=== PATIENT | female | born 1955 | race African-American/Black ===

== ENCOUNTER 2016-04-17 10:19 | Inpatient (IN) | payer MEDICARE, MEDICAID ==
[~2016-04-17] VITALS: Ht 165.1 cm; Wt 63.5 kg
[~2016-04-17 10:19] MED LIST: AMLODIPINE BESY10 MG ORAL; ATIVAN0.5 MG ORAL; BENADRYL25 MG ORAL; CALCIUM 600 +1 EAC6 PO; CARDURA1 MG ORAL; CATAPRES0.1 MG ORAL; COZAAR100 MG ORAL; DEXTROSE 50%-WA50 ML IV; DILAUDID1 MG/1 ML PO; DOCUSIL100 M1 ORAL; GUAIFENESIN-DM S5 ML PO; KEFLEX250 MG ORAL; LACTULOSE20 GM/301 ORAL; LISINOPRIL5 MG ORAL; LOMOTIL TABLET1 EAC1 PO; LOVENOX10 MG SUBQ; MAALOX ADVANCE770 ML PO; MELATONIN 3 MG1 EACH ORAL; NORCO 5-325 TA1 EACH ORAL; NOVOLOG100 UNIT/3 SUBQ; OMEPRAZOLE20 M2 ORAL; REGLAN5 MG ORAL; RENAGEL800 MG ORAL; ROCALTROL0.25 MCG PO; SENSIPAR90 MG PO; TYLENOL650 MG/20. ORAL; VITAMIN B-1100 MG ORAL
[2016-04-17] MEDS ORDERED: Morphine Sulfate 4mg/ml Inj IVP ONE (10:45)
[2016-04-17 11:31] LABS: BASOPHILS % (AUTO) 1.1 % (0.0-2.0); EOSINOPHILS % (AUTO) 3.6 % (0.0-3.0); LYMPHOCYTES % (AUTO) 18.6 % (20.0-45.0); MEAN CORPUSCULAR HEMOGLOBIN 30.4 PG (27.0-31.0); MEAN CORPUSCULAR HGB CONC 31.1 G/DL (32.0-36.0); MEAN CORPUSCULAR VOLUME 98 FL (80-99); MEAN PLATELET VOLUME 6.3 FL (6.5-10.1); MONOCYTES % (AUTO) 9.1 % (1.0-10.0); NEUTROPHILS % (AUTO) 67.5 % (45.0-75.0); PLATELET COUNT 252 K/UL (150-450); WHITE BLOOD COUNT 5.3 K/UL (4.8-10.8)
[2016-04-17 11:42] LABS: ALANINE AMINOTRANSFERASE 7 U/L (3-33); ALBUMIN/GLOBULIN RATIO 0.6 (1.0-2.7); ANION GAP 17 (5-15); ASPARTATE AMINO TRANSFERASE 22 U/L (5-40); CALCIUM 6.7 mg/dL (8.6-10.2); CARBON DIOXIDE 28 mEQ/L (20-30); CHLORIDE 91 mEQ/L (98-107); CREATININE 5.8 mg/dL (0.5-0.9); HEMOLYSIS 115; SODIUM 136 mEQ/L (135-145)
[2016-04-17 11:48] LABS: POTASSIUM 6.1 mEQ/L (3.4-4.9)
[2016-04-17] MEDS ORDERED: Calcium Gluconate 1gm/10ml vial IVP ONE ×2 (12:00→15:00)
[2016-04-17 12:01] LABS: TROPONIN I < 0.30 ng/mL (<=0.30)
[2016-04-17 12:09] LABS: CKMB < 1.5 ng/mL (< 3.8)
--- NOTE | 2016-04-17 12:28 | Diagnostic Imaging Report ---
Indications: Chest pain Technique: Portable AP chest Findings: Comparison: 09/20/2015 Cardiac silhouette remains enlarged. Pulmonary vascular redistribution, bilateral interstitial infiltrates have increased. Right pleural effusion has developed. Smaller left pleural effusion persists, unchanged. Newly new density left upper lobe. Linear densities compatible with subsegmental atelectasis versus scarring left mid to lower lung unchanged. Intravascular stent now present in the right paratracheal region. Previous PICC has been removed. Cervical fusion hardware again noted. IMPRESSION: Bilateral congestive changes, persistent versus recurrent and increased since previous exam Development of subsegmental atelectasis left upper lobe Stable subsegmental atelectasis versus scarring left lower lung Interval intravascular stent placement in region of right subclavian/brachiocephalic veins PICC removal
[2016-04-17 12:30] VITALS: BP 135/87
[2016-04-17 12:49] LABS: APPEARANCE,URINE CLEAR; KETONES,URINE NEGATIVE (NEGATIVE); LEUKOCYTE ESTERASE ,URINE 3+ (NEGATIVE); NITRITE,URINE NEGATIVE (NEGATIVE); PH,URINE 8 (4.5-8.0); PROTEIN,URINE 4+ (NEGATIVE); UROBILINOGEN,URINE NORMAL MG/DL (0.0-1.0)
[2016-04-17 13:15] LABS: BACTERIA,URINE FEW /HPF; SQUAMOUS EPITHELIAL CELL,UR FEW /LPF (NONE/OCC)
[2016-04-17 14:01] LABS: ALBUMIN/GLOBULIN RATIO 0.7 (1.0-2.7); CALCIUM 6.8 mg/dL (8.6-10.2); GLOMERULAR FILTRATION RATE 8.6 mL/min (>60); POTASSIUM 5.7 mEQ/L (3.4-4.9)
[2016-04-17 14:30] VITALS: BP 127/81
[2016-04-17] MEDS ORDERED: Zolpidem 5mg tab ORAL PRN (14:30)
[2016-04-17] MEDS ORDERED: Mylanta II UD 30ml ORAL PRN (14:30)
[2016-04-17] MEDS ORDERED: Miralax 17gm pkt ORAL PRN (14:30)
[2016-04-17] MEDS ORDERED: DuoNeb 0.5-3(2.5)mg/3ml neb HHN PRN (14:30)
--- NOTE | 2016-04-17 14:30 | Diagnostic Imaging Report ---
Indications: Abdominal pain and distention Technique: Continuous helical CT imaging of the abdomen and pelvis was performed with automatic exposure control following administration of oral and intravenous nonionic iodine contrast, on a Siemens sensation [address] scanner. Axial, coronal, and sagittal images were reconstructed at 5 mm slice thickness. CTDI volume(s): 13 mGy Total DLP: 670 mGy-cm Findings: Comparison: Abdominal ultrasound 09/22/2015 A large amount of ascites is present throughout the abdomen and pelvis, resulting in significant abdominal distention. No extraluminal gas or loculated fluid collections identified. Oral contrast has passed throughout the gastrointestinal tract throughout much of not all of the small bowel. Multiple loops of small bowel are dilated with air-fluid levels. Nondilated loops both proximal and distal to the dilated loops. A discrete point of transition cannot be identified. Mural thickening of one or more of nondilated/unopacified loops not excludable. Appendix not identified. Colon partially collapsed, partially gas and fecal filled, nondilated. Mural thickening of one or more segments not excludable. Rectum appears compressed by ascites. Mural thickening/pathology not excludable. Escobedo catheter in collapsed urinary bladder. Liver measures 20 cm in length, demonstrates subtle diffuse parenchymal heterogeneity, 12 mm enhancing nodule in its appropriate of what is likely segment IVb. Gallbladder wall thickened. Both kidneys are severely atrophic and contain multiple circumscribed low attenuation cortical foci. Scattered arterial mural calcifications without obvious flow-limiting stenosis or occlusion. Remainder visualized pelvic anatomy demonstrates no other obvious acute abnormality. Bilateral pleural effusions, right greater than left. Subsegmental parenchymal consolidation and volume loss in the adjacent portions of both lung bases. Heart enlarged. Pericardial effusion up to 15 mm diameter. Diffuse body wall edema. Diffuse skeletal sclerosis. L5-S1 disc space narrowing with marginal osteophyte formation. Impression: Marked ascites resulting in abdominal pelvic distention, etiology indeterminate Both dilated and nondilated small bowel, favor ileus over obstruction. Pathologic mural thickening of one or more small bowel loops not excludable. Collapsed colon and rectum. Pathologic mural thickening not excludable. Enlarged, heterogeneous liver compatible with chronic hepatocellular disease. 12 mm enhancing nodule described is nonspecific, may be benign or malignant Gallbladder wall thickening most likely secondary to presence of ascites. Cholecystitis not excludable Bilateral end-stage renal disease Escobedo catheter Diffuse body wall edema compatible with anasarca Pleural effusions, nonspecific, may be secondary to presence of ascites Pericardial effusion, nonspecific Anasarca Pulmonary bibasal subsegmental atelectasis Cardiomegaly Diffuse skeletal sclerosis may represent metastatic neoplasm or metabolic abnormality Degenerative spondylosis
[2016-04-17] MEDS ORDERED: CATAPRES0.1 MG ORAL (15:24)
[2016-04-17] MEDS ORDERED: TRAZODONE HCL100 MG ORAL (15:24)
[2016-04-17] MEDS ORDERED: TRAMADOL HCL50 MG ORAL (15:24)
[2016-04-17] MEDS ORDERED: ZOFRAN ODT4 MG ORAL (15:24)
[2016-04-17] MEDS ORDERED: ASPIRIN325 MG ORAL (15:24)
[2016-04-17] MEDS ORDERED: VITAMIN B-12500 MCG ORAL (15:26)
[2016-04-17] MEDS ORDERED: HYDRALAZINE HCL50 MG ORAL (15:26)
--- NOTE | 2016-04-17 16:09 | Emergency Room Report ---
History of Present Illness General Chief Complaint: Abdominal Pain Source: Patient, EMS Present Illness HPI 61-year-old female presents to ED complaining of abdominal pain x4 days. Patient resides in convalescent home. Patient states pain is sharp. 10 out of 10. Nonradiating. No aggravating or relieving factors. States her abdomen is distended. Denies nausea or vomiting. Denies chest pain or shortness of breath. Patient states he gets dialysis Sunday. Did not go to dialysis today because she was having pain. No other aggravating or relieving factors. Denies any other associated symptoms Allergies: Coded Allergies: No Known Allergies (Unverified , 09/20/15) Patient History Past Medical History: DM, HTN, AFib, GERD, dialysis Past Surgical History: none Pertinent Family History: none Social History: Denies: alcohol use, drug use, smoking Now: No Immunizations: UTD Reviewed Nursing Documentation: PMH: Agreed, PSxH: Agreed Nursing Documentation-PMH Past Medical History: No History, Except For Hx Cardiac Problems: Yes - afib Hx Hypertension: Yes Hx Diabetes: Yes Hx Cancer: No Hx Gastrointestinal Problems: Yes - GERD Hx Dialysis: Yes - MWF Hx Cerebrovascular Accident: No - Renal failure Review of Systems All Other Systems: negative except mentioned in HPI Physical Exam Vital Signs Date Time Temp Pulse Resp B/P Pulse Ox O2 Delivery O2 Flow Rate FiO2 04/17/16 10:09 104 18 131/85 98 Room Air Sp02 EP Interpretation: reviewed, normal General Appearance: no apparent distress, alert, GCS 15, non-toxic Head: normocephalic, atraumatic Eyes: bilateral eye PERRL, bilateral eye normal inspection ENT: hearing grossly normal, normal pharynx, no angioedema, normal voice Neck: full range of motion, supple/symm/no masses Respiratory: chest non-tender, lungs clear, normal breath sounds, speaking full sentences Cardiovascular #1: regular rate, rhythm, no edema Cardiovascular #2: 2+ carotid (R), 2+ carotid (L), 2+ radial (R), 2+ radial (L) , 2+ dorsalis pedis (R), 2+ dorsalis pedis (L) Gastrointestinal: normal bowel sounds, soft, no guarding, no rebound, distended , tenderness Rectal: deferred Genitourinary: normal inspection, no CVA tenderness Musculoskeletal: back normal, gait/station normal, normal range of motion, non- tender Neurologic: alert, oriented x3, responsive, motor strength/tone normal, sensory intact, speech normal Psychiatric: judgement/insight normal, memory normal, mood/affect normal, no suicidal/homicidal ideation Reflexes: 3+ bicep (R), 3+ bicep (L), 3+ tricep (R), 3+ tricep (L), 3+ knee (R) , 3+ knee (L) Skin: normal color, no rash, warm/dry, well hydrated Lymphatic: no adenopathy Medical Decision Making Diagnostic Impression: Primary Impression: Hyperkalemia Additional Impressions: ESRD (end stage renal disease) Ascites Qualified Codes: R18.8 - Other ascites ER Course Hospital Course 61-year-old female presents to ED with abdominal pain distention. 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 After initial history and physical I ordered labs, IV fluids, UA, pain medication and CT scan Labs - no leukocytosis, Hb/Hct stable. K 5.7. BUN/Cr elevated CT abdomen and pelvis -ascites, hepatomegaly. EKG - NSR, no acute ischemic changes given calcium/insulin/D50 Case discussed with Dr. Albright and he agreed to accept the patient to his service for further care and support I feel this is a highly complex case requiring extensive working including EKG/ Rhythm strip, Xray/CT/US, Blood/urine lab work, repeat exams while in ED, and administration of strong opiates/narcotics for pain control, admission to hospital or close patient follow up. Diagnosis - hyperkalemia, ESRD, ascites Patient admitted to [facility] in serious condition Labs Test 04/17/16 10:45 04/17/16 11:50 04/17/16 13:20 White Blood Count 5.3 K/UL (4.8-10.8) Red Blood Count 3.40 M/UL (4.20-5.40) Hemoglobin 10.4 G/DL (12.0-16.0) Hematocrit 33.3 % (37.0-47.0) Mean Corpuscular Volume 98 FL (80-99) Mean Corpuscular Hemoglobin 30.4 PG (27.0-31.0) Mean Corpuscular Hemoglobin Concent 31.1 G/DL (32.0-36.0) Red Cell Distribution Width 18.0 % (11.6-14.8) Platelet Count 252 K/UL (150-450) Mean Platelet Volume 6.3 FL (6.5-10.1) Neutrophils (%) (Auto) 67.5 % (45.0-75.0) Lymphocytes (%) (Auto) 18.6 % (20.0-45.0) Monocytes (%) (Auto) 9.1 % (1.0-10.0) Eosinophils (%) (Auto) 3.6 % (0.0-3.0) Basophils (%) (Auto) 1.1 % (0.0-2.0) Sodium Level 136 mEQ/L (135-145) 135 mEQ/L (135-145) Potassium Level 6.1 mEQ/L (3.4-4.9) 5.7 mEQ/L (3.4-4.9) Chloride Level 91 mEQ/L (98-107) 90 mEQ/L (98-107) Carbon Dioxide Level 28 mEQ/L (20-30) 28 mEQ/L (20-30) Anion Gap 17 (5-15) 17 (5-15) Blood Urea Nitrogen 32 mg/dL (7-23) 33 mg/dL (7-23) Creatinine 5.8 mg/dL (0.5-0.9) 6.0 mg/dL (0.5-0.9) Estimat Glomerular Filtration Rate 9.0 mL/min (>60) 8.6 mL/min (>60) Glucose Level 59 mg/dL (74-106) 61 mg/dL (74-106) Lactic Acid Level 0.70 mmol/L (0.66-2.22) Calcium Level 6.7 mg/dL (8.6-10.2) 6.8 mg/dL (8.6-10.2) Total Bilirubin 0.4 mg/dL (0.0-1.2) 0.4 mg/dL (0.0-1.2) Aspartate Amino Transf (AST/SGOT) 22 U/L (5-40) 15 U/L (5-40) Alanine Aminotransferase (ALT/SGPT) 7 U/L (3-33) 6 U/L (3-33) Alkaline Phosphatase 123 U/L (35-104) 123 U/L (35-104) Total Creatine Kinase 45 U/L (26-140) Creatine Kinase MB < 1.5 ng/mL (< 3.8) Creatine Kinase MB Relative Index Troponin I < 0.30 ng/mL (<=0.30) Total Protein 8.0 g/dL (6.6-8.7) 8.0 g/dL (6.6-8.7) Albumin 3.2 g/dL (3.5-5.2) 3.3 g/dL (3.5-5.2) Globulin 4.8 g/dL 4.7 g/dL Albumin/Globulin Ratio 0.6 (1.0-2.7) 0.7 (1.0-2.7) Urine Color Yellow Urine Appearance Clear Urine pH 8 (4.5-8.0) Urine Specific Horton 1.005 (1.005-1.035) Urine Protein 4+ (NEGATIVE) Urine Glucose (UA) Negative (NEGATIVE) Urine Ketones Negative (NEGATIVE) Urine Occult Blood 3+ (NEGATIVE) Urine Nitrite Negative (NEGATIVE) Urine Bilirubin Negative (NEGATIVE) Urine Urobilinogen Normal MG/DL (0.0-1.0) Urine Leukocyte Esterase 3+ (NEGATIVE) Urine RBC 5-10 /HPF (0 - 2) Urine WBC 5-10 /HPF (0 - 2) Urine Squamous Epithelial Cells Few /LPF (NONE/OCC) Urine Bacteria Few /HPF (NONE) EKG Diagnostic Results Rate: normal Rhythm: NSR ST Segments: no acute changes ASA given to the pt in ED: No Rhythm Strip Diag. Results EP Interpretation: yes Rhythm: NSR, no PVC's, no ectopy Chest X-Ray Diagnostic Results EP Interpretation: No Findings: no pneumothorax, no acute cardiopulmonary disease, other - L atelectasis/effusion Number of Views: 1 CT/MRI/US Diagnostic Results CT/MRI/US Diagnostic Results : Imaging Test Ordered: CT A/P Impression ascites, hepatomegaly. no bowel obstruction. Last Vital Signs Date Time Temp Pulse Resp B/P Pulse Ox O2 Delivery O2 Flow Rate FiO2 04/17/16 15:29 103 18 127/81 95 Room Air Status: improved Disposition: ADMITTED INPATIENT Condition: Serious Referrals: LANE CARNEY MD (PCP) LICHA GARCIA M.D. Apr 17, 2016 16:09
[2016-04-17 16:13] VITALS: BP 148/94
--- NOTE | 2016-04-17 16:28 | Consultation ---
Consult Note Consult Note asked to eval for dialysis management Chief Complaint: Abdominal Pain 61-year-old female presents to ED complaining of abdominal pain x4 days. Patient resides in convalescent home. Patient states pain is sharp. 10 out of 10. Nonradiating. No aggravating or relieving factors. States her abdomen is distended. Denies nausea or vomiting. Denies chest pain or shortness of breath. Patient states he gets dialysis Sunday. Did not go to dialysis today because she was having pain. No other aggravating or relieving factors. Denies any other associated symptoms Past Medical History: DM, HTN, AFib, GERD, dialysis Past Medical History: No History, Except For Hx Cardiac Problems: Yes - afib Hx Hypertension: Yes Hx Diabetes: Yes Hx Gastrointestinal Problems: Yes - GERD Hx Dialysis: Yes - MWF Hx Cerebrovascular Accident: No - Renal failure patient interviewed and examined- comfortable fistula righ arm Ascitis Decrease BS bases Assessment/Plan ESRD- HyperKalemia Ascitis- DM HTN At Fib Plan: [facility]- HD SUSAN Per consultants PEPE MONTERROSO Apr 17, 2016 16:28
[2016-04-17] MEDS ORDERED: Sodium Polystyrene Sulfonate 15gm Powder ORAL ONE (16:30)
[2016-04-17] MEDS: NovoLOG Insulin Flexpen SUBQ SCH ×2 (16:30→21:00)
--- NOTE | 2016-04-17 16:37 | GI Initial Consult Note ---
History of Present Illness General Date patient seen: Apr 17, 2016 Time patient seen: 16:28 Reason for Hospitalization: Abdominal Pain Referring physician: ROSS HODGES Reason for Consultation: ANEMIA Present Illness HPI 61-year-old female presents to ED complaining of abdominal pain x4 days. Patient resides in convalescent home. Patient states pain is sharp. 10 out of 10. Nonradiating. No aggravating or relieving factors. States her abdomen is distended. Denies nausea or vomiting. Denies chest pain or shortness of breath. Patient states he gets dialysis Sunday. Did not go to dialysis today because she was having pain. No other aggravating or relieving factors. Denies any other associated symptoms GI CONSULT: HPI as noted above. Pt seen on floor awake, A&Ox4 NAD c/o of abdominal distention and pain, tender to touch all quad. GI consulted for anemia and evaluation of cirrhosis. Pt is a chronic ETOH user approximately 1pint weekly 5+ years and tobacco user. She stated she has quit both for approximately 3 months now. Pt is unable to recall her last colonoscopy, but states it was unremarkable. She presents today with anemia, elevated alkaline phosphatase, hypoalbuminemia and ascites and possible ileus on CT, see full report below. Procedure: CT Abdomen Pelvis w/Contrast Indications: Abdominal pain and distention Impression: Marked ascites resulting in abdominal pelvic distention, etiology indeterminate Both dilated and nondilated small bowel, favor ileus over obstruction. Pathologic mural thickening of one or more small bowel loops not excludable. Collapsed colon and rectum. Pathologic mural thickening not excludable. Enlarged,heterogeneous liver compatible with chronic hepatocellular disease. 12 mm enhancing nodule described is nonspecific, may be benign or malignant Gallbladder wall thickening most likely secondary to presence of ascites. Cholecystitis not excludable Bilateral end-stage renal disease Escobedo catheter Diffuse body wall edema compatible with anasarca Pleural effusions, nonspecific, may be secondary to presence of ascites Pericardial effusion, nonspecific Anasarca Pulmonary bibasal subsegmental atelectasis Cardiomegaly Diffuse skeletal sclerosis may represent metastatic neoplasm or metabolic abnormality Degenerative spondylosis Home Meds Reported Medications Hydralazine Hcl* (HYDRALAZINE HCL*) 50 Mg Tablet, 50 MG ORAL EVERY 8 HOURS, TAB 04/17/16 Cyanocobalamin (Vitamin B-12)* (VITAMIN B-12*) 500 Mcg Tablet, 1000 MCG ORAL DAILY, #30 TAB 0 Refills 04/17/16 Clonidine Hcl* (CATAPRES*) 0.1 Mg Tablet, 0.1 MG ORAL EVERY 6 HOURS, TAB 04/17/16 Tramadol Hcl* (ULTRAM*) 50 Mg Tablet, 50 MG ORAL Q6H Y for For Pain, #30 TAB 0 Refills 04/17/16 Trazodone Hcl* (DESYREL*) 100 Mg Tablet, 100 MG ORAL BEDTIME, TAB 04/17/16 Ondansetron Odt* (ZOFRAN ODT*) 4 Mg Tab.rapdis, 4 MG ORAL Q6H Y for Nausea & Vomiting, #30 TAB 04/17/16 Aspirin* (ASPIRIN*) 325 Mg Tablet, 325 MG ORAL DAILY, TAB 04/17/16 Thiamine Hcl* (VITAMIN B-1*) 100 Mg Tablet, 100 MG ORAL DAILY, #30 TAB 0 Refills 09/20/15 Cinacalcet Hcl (SENSIPAR) 90 Mg Tablet, 90 MG PO DAILY, TAB 09/20/15 Calcitriol (ROCALTROL) 0.25 Mcg Capsule, 0.25 MCG PO DAILY, CAP 09/20/15 Calcitriol (ROCALTROL) 0.25 Mcg Capsule, 0.25 MCG PO, CAP 09/20/15 Sevelamer Hcl (RENAGEL) 800 Mg Tablet, 800 MG ORAL THREE TIMES A DAY, #90 TAB 0 Refills 09/20/15 Metoclopramide Hcl* (REGLAN*) 5 Mg Tablet, 5 MG ORAL EVERY 6 HOURS, TAB 09/20/15 Omeprazole (OMEPRAZOLE) 20 Mg Capsule.dr, 20 MG ORAL DAILY, CAP 09/20/15 Insulin Aspart* (NOVOLOG*) 100 Unit/1 Ml Insuln.pen, 0 SUBQ, #1 EA 0 Refills 09/20/15 Mag Hydrox/Al Hydrox/Simeth (Maalox Advanced Suspension) 355 Ml Oral.susp, 30 ML PO EVERY 12 HOURS, ML 09/20/15 Melatonin (MELATONIN 3 MG TABLET) 1 Each Tablet, 1 TAB ORAL BEDTIME Y for Insomnia, TAB 09/20/15 Enoxaparin* (LOVENOX*) 30 Mg/0.3 Ml Inj, 30 MG SUBQ DAILY, #30 EA 0 Refills 09/20/15 Diphenoxylate HCl/Atropine (Lomotil Tablet) 1 Each Tablet, 1 EACH PO Q4HR, TAB 09/20/15 Lisinopril (LISINOPRIL*) 5 Mg Tablet, 5 MG ORAL DAILY, TAB 09/20/15 Lactulose (LACTULOSE*) 20 Gm/30 Ml Solution, 30 ML ORAL Q8HR, ML 0 Refills 09/20/15 Cephalexin* (KEFLEX*) 250 Mg Capsule, 250 MG ORAL BID, #28 CAP 0 Refills 09/20/15 Hydrocodone Bit/Acetaminophen 5-325* (NORCO 5-325*) 1 Each Tablet, 1 TAB ORAL Q4H Y for For Pain, TAB 0 Refills 09/20/15 Guaifenesin/Dextromethorphan (GUAIFENESIN-DM SOLUTION) 5 Ml Liquid, 10 ML PO Q4HR, ML 09/20/15 Docusate Sodium* (DOCUSIL*) 100 Mg Capsule, 100 MG ORAL Q12HR, CAP 09/20/15 Hydromorphone Hcl (DILAUDID) 1 Mg/1 Ml Liquid, 1 MG PO NEEDED, ML 09/20/15 Dextrose 50 % in Water (Dextrose 50%-Water Syringe) 50 Ml Syringe, 50 ML IV Y for Hypoglycemia, EA 09/20/15 Losartan Potassium (COZAAR) 100 Mg Tablet, 100 MG ORAL DAILY, TAB 09/20/15 Clonidine Hcl* (CATAPRES*) 0.1 Mg Tablet, 0.1 MG ORAL EVERY 6 HOURS Y for AD, TAB 09/20/15 Doxazosin Mesylate* (CARDURA*) 1 Mg Tablet, 2 MG ORAL DAILY, TAB 09/20/15 Calcium Carbonate/Vitamin D3 (CALCIUM 600 + VIT D 400 TABLET) 1 Each Tablet, 1 EACH PO, TAB 09/20/15 Diphenhydramine Hcl* (BENADRYL*) 25 Mg Capsule, 25 MG ORAL Q6H Y for Itching, CAP 09/20/15 Lorazepam* (ATIVAN*) 0.5 Mg Tablet, 0.5 MG ORAL Q4HR Y for AD, TAB 09/20/15 Amlodipine Besylate* (AMLODIPINE BESYLATE*) 10 Mg Tablet, 10 MG ORAL DAILY, TAB 09/20/15 Acetaminophen (Acetaminophen) 650 Mg/20.3 Ml Solution, 650 MG ORAL Q6H Y for Prn Headache/Temp > 101, ML 0 Refills 09/20/15 Med list reviewed/reconciled: Yes Allergies: Coded Allergies: No Known Allergies (Unverified , 09/20/15) Patient History PMH Narrative Allergies: Coded Allergies: No Known Allergies (Unverified , 09/20/15) Patient History Past Medical History: DM, HTN, AFib, GERD, dialysis Past Surgical History: none Pertinent Family History: none Social History: Denies: alcohol use, drug use, smoking Now: No Immunizations: UTD Reviewed Nursing Documentation: PMH: Agreed, PSxH: Agreed Nursing Documentation-PMH Past Medical History: No History, Except For Hx Cardiac Problems: Yes - afib Hx Hypertension: Yes Hx Diabetes: Yes Hx Cancer: No Hx Gastrointestinal Problems: Yes - GERD Hx Dialysis: Yes - MWF Hx Cerebrovascular Accident: No - Renal failure Social History: Reports: alcohol use, smoking Review of Systems All Other Systems: negative except mentioned in HPI Physical Exam Vital Signs Date Time Temp Pulse Resp B/P Pulse Ox O2 Delivery O2 Flow Rate FiO2 04/17/16 10:09 104 18 131/85 98 Room Air 04/17/16 16:13 97.7 Sp02 EP Interpretation: reviewed Labs Laboratory Tests Test 04/17/16 10:45 04/17/16 11:50 04/17/16 13:20 White Blood Count 5.3 K/UL (4.8-10.8) Red Blood Count 3.40 M/UL (4.20-5.40) L Hemoglobin 10.4 G/DL (12.0-16.0) L Hematocrit 33.3 % (37.0-47.0) L Mean Corpuscular Volume 98 FL (80-99) Mean Corpuscular Hemoglobin 30.4 PG (27.0-31.0) Mean Corpuscular Hemoglobin Concent 31.1 G/DL (32.0-36.0) L Red Cell Distribution Width 18.0 % (11.6-14.8) H Platelet Count 252 K/UL (150-450) Mean Platelet Volume 6.3 FL (6.5-10.1) L Neutrophils (%) (Auto) 67.5 % (45.0-75.0) Lymphocytes (%) (Auto) 18.6 % (20.0-45.0) L Monocytes (%) (Auto) 9.1 % (1.0-10.0) Eosinophils (%) (Auto) 3.6 % (0.0-3.0) H Basophils (%) (Auto) 1.1 % (0.0-2.0) Sodium Level 136 mEQ/L (135-145) 135 mEQ/L (135-145) Potassium Level 6.1 mEQ/L (3.4-4.9) *H 5.7 mEQ/L (3.4-4.9) H Chloride Level 91 mEQ/L (98-107) L 90 mEQ/L (98-107) L Carbon Dioxide Level 28 mEQ/L (20-30) 28 mEQ/L (20-30) Anion Gap 17 (5-15) H 17 (5-15) H Blood Urea Nitrogen 32 mg/dL (7-23) H 33 mg/dL (7-23) H Creatinine 5.8 mg/dL (0.5-0.9) H 6.0 mg/dL (0.5-0.9) H Estimat Glomerular Filtration Rate 9.0 mL/min (>60) 8.6 mL/min (>60) Glucose Level 59 mg/dL (74-106) L 61 mg/dL (74-106) L Lactic Acid Level 0.70 mmol/L (0.66-2.22) Calcium Level 6.7 mg/dL (8.6-10.2) L 6.8 mg/dL (8.6-10.2) L Total Bilirubin 0.4 mg/dL (0.0-1.2) 0.4 mg/dL (0.0-1.2) Aspartate Amino Transf (AST/SGOT) 22 U/L (5-40) 15 U/L (5-40) Alanine Aminotransferase (ALT/SGPT) 7 U/L (3-33) 6 U/L (3-33) Alkaline Phosphatase 123 U/L (35-104) H 123 U/L (35-104) H Total Creatine Kinase 45 U/L (26-140) Creatine Kinase MB < 1.5 ng/mL (< 3.8) Creatine Kinase MB Relative Index Troponin I < 0.30 ng/mL (<=0.30) Total Protein 8.0 g/dL (6.6-8.7) 8.0 g/dL (6.6-8.7) Albumin 3.2 g/dL (3.5-5.2) L 3.3 g/dL (3.5-5.2) L Globulin 4.8 g/dL 4.7 g/dL Albumin/Globulin Ratio 0.6 (1.0-2.7) L 0.7 (1.0-2.7) L Urine Color Yellow Urine Appearance Clear Urine pH 8 (4.5-8.0) Urine Specific [place] 1.005 (1.005-1.035) Urine Protein 4+ (NEGATIVE) H Urine Glucose (UA) Negative (NEGATIVE) Urine Ketones Negative (NEGATIVE) Urine Occult Blood 3+ (NEGATIVE) H Urine Nitrite Negative (NEGATIVE) Urine Bilirubin Negative (NEGATIVE) Urine Urobilinogen Normal MG/DL (0.0-1.0) Urine Leukocyte Esterase 3+ (NEGATIVE) H Urine RBC 5-10 /HPF (0 - 2) H Urine WBC 5-10 /HPF (0 - 2) H Urine Squamous Epithelial Cells Few /LPF (NONE/OCC) Urine Bacteria Few /HPF (NONE) General Appearance: well appearing, no apparent distress, alert Head: normocephalic EENT: normal ENT inspection Neck: supple Respiratory: normal breath sounds, no respiratory distress Cardiovascular: normal rate Gastrointestinal: distended, tenderness, ascites Rectal: deferred Neurologic: normal inspection, alert, oriented x3, responsive Psychiatric: normal inspection, judgement/insight normal, memory normal Skin: normal inspection, normal color, no rash Lymphatic: normal inspection, no adenopathy Current Medications Current Medications Medications (Trade) Dose Ordered Sig/Ranjan Route PRN Reason Start Time Stop Time Status Last Admin Dose Admin Acetaminophen (Tylenol) 650 mg Q4H PRN ORAL fever 04/17/16 14:30 05/17/16 14:29 Acetaminophen (Tylenol) 650 mg Q6H PRN ORAL Prn Headache/Temp > 101 04/17/16 16:15 05/17/16 16:14 UNV Albuterol/ Ipratropium 3 ml 3 ml Q6H PRN HHN dyspnea 04/17/16 14:30 04/22/16 14:29 Amlodipine Besylate (Norvasc) 10 mg DAILY ORAL 04/18/16 09:00 05/18/16 08:59 UNV Aspirin (ASA) 325 mg DAILY ORAL 04/18/16 09:00 05/18/16 08:59 UNV Cinacalcet (Sensipar) 60 mg QHS ORAL 04/17/16 21:00 05/17/16 20:59 UNV Clonidine HCl (Catapres) 0.1 mg Q4H PRN ORAL For High Blood Pressure 04/17/16 14:30 05/17/16 14:29 Dextrose (Dextrose 50%) STAT PRN IV Hypoglycemia 04/17/16 14:30 05/17/16 14:29 Docusate Sodium (Colace) 100 mg TID ORAL 04/17/16 21:00 05/17/16 20:59 UNV Furosemide (Lasix) 100 mg Q8H PRN IV dyspnea 04/17/16 14:30 05/17/16 14:29 Heparin Sodium (Porcine) (Heparin 5000 units/ml) 5,000 units EVERY 12 HOURS SUBQ 04/17/16 21:00 05/17/16 20:59 Hydralazine HCl (Apresoline) 50 mg EVERY 8 HOURS ORAL 04/17/16 22:00 05/17/16 21:59 UNV Insulin Aspart (NovoLOG) BEFORE MEALS AND HS SUBQ 04/17/16 16:30 05/17/16 16:29 Lactulose (Cephulac) 20 gm Q8HR ORAL 04/17/16 22:00 05/17/16 21:59 UNV Levofloxacin (Levaquin 750mg/ D5W) 150 ml @ 100 mls/hr NOW ONCE IVPB 04/17/16 15:00 04/17/16 16:29 04/17/16 15:15 Metoclopramide HCl (Reglan) 5 mg TIAC ORAL 04/17/16 18:00 05/17/16 17:59 UNV Morphine Sulfate (Morphine Sulfate) 1 mg Q4H PRN IVP For Pain 04/17/16 14:30 04/24/16 14:29 Ondansetron HCl (Zofran) 4 mg Q6H PRN IVP Nausea & Vomiting 04/17/16 14:30 05/17/16 14:29 Pantoprazole (Protonix) 40 mg DAILY ORAL 04/18/16 09:00 05/18/16 08:59 UNV Polyethylene Glycol (Miralax) 17 gm HSPRN PRN ORAL Constipation 04/17/16 14:30 05/17/16 14:29 Sevelamer Carbonate (Renvela) 1,600 mg THREE TIMES A DAY ORAL 04/17/16 18:00 05/17/16 17:59 UNV Sodium Polystyrene Sulfonate (Kayexalate) 45 gm ONCE ONCE ORAL 04/17/16 16:30 04/17/16 16:31 Thiamine HCl (Vitamin B1) 100 mg DAILY ORAL 04/18/16 09:00 05/18/16 08:59 UNV Trazodone HCl (Desyrel) 100 mg BEDTIME ORAL 04/17/16 21:00 05/17/16 20:59 UNV Zolpidem Tartrate (Ambien) 5 mg HSPRN PRN ORAL Insomnia 04/17/16 14:30 05/17/16 14:29 GI: Plan Problems: (1) Ileus (2) Ascites (3) GERD (gastroesophageal reflux disease) (4) H/O ETOH abuse (5) Abnormal LFTs (6) Anemia (7) Hepatomegaly Plan anemia work up ordered paracentesis + r/o SBP ordered Hep panel ordered tumor markers; AFP, CEA, CA19-9, CA 125-5 cont lactulose renal diet bowel regime ppi fu labs Discussed with Dr. Reyes. Thank you for referring this patient, we will follow. Autumn Lutz N.P. Apr 17, 2016 16:37
--- NOTE | 2016-04-17 16:55 | Cardiology Progress Note ---
Assessment/Plan Assessment/Plan ascites esrd on hemodialysis ? uti diastlich dysfucntion TR / AR esrd on hemodialysis anemia liver disease consider paracentesis dialysis echo urien c/s myeloma ortiz ?? [id number] Objective Last 24 Hour Vital Signs Date Time Temp Pulse Resp B/P Pulse Ox O2 Delivery O2 Flow Rate FiO2 04/17/16 16:13 97.7 111 19 148/94 94 Room Air 04/17/16 15:29 103 18 127/81 95 Room Air 04/17/16 14:30 103 18 127/81 95 Room Air 04/17/16 12:30 106 20 135/87 98 Room Air 04/17/16 10:09 104 18 131/85 98 Room Air Laboratory Tests Test 04/17/16 10:45 04/17/16 11:50 04/17/16 13:20 White Blood Count 5.3 K/UL (4.8-10.8) Red Blood Count 3.40 M/UL (4.20-5.40) L Hemoglobin 10.4 G/DL (12.0-16.0) L Hematocrit 33.3 % (37.0-47.0) L Mean Corpuscular Volume 98 FL (80-99) Mean Corpuscular Hemoglobin 30.4 PG (27.0-31.0) Mean Corpuscular Hemoglobin Concent 31.1 G/DL (32.0-36.0) L Red Cell Distribution Width 18.0 % (11.6-14.8) H Platelet Count 252 K/UL (150-450) Mean Platelet Volume 6.3 FL (6.5-10.1) L Neutrophils (%) (Auto) 67.5 % (45.0-75.0) Lymphocytes (%) (Auto) 18.6 % (20.0-45.0) L Monocytes (%) (Auto) 9.1 % (1.0-10.0) Eosinophils (%) (Auto) 3.6 % (0.0-3.0) H Basophils (%) (Auto) 1.1 % (0.0-2.0) Sodium Level 136 mEQ/L (135-145) 135 mEQ/L (135-145) Potassium Level 6.1 mEQ/L (3.4-4.9) *H 5.7 mEQ/L (3.4-4.9) H Chloride Level 91 mEQ/L (98-107) L 90 mEQ/L (98-107) L Carbon Dioxide Level 28 mEQ/L (20-30) 28 mEQ/L (20-30) Anion Gap 17 (5-15) H 17 (5-15) H Blood Urea Nitrogen 32 mg/dL (7-23) H 33 mg/dL (7-23) H Creatinine 5.8 mg/dL (0.5-0.9) H 6.0 mg/dL (0.5-0.9) H Estimat Glomerular Filtration Rate 9.0 mL/min (>60) 8.6 mL/min (>60) Glucose Level 59 mg/dL (74-106) L 61 mg/dL (74-106) L Lactic Acid Level 0.70 mmol/L (0.66-2.22) Calcium Level 6.7 mg/dL (8.6-10.2) L 6.8 mg/dL (8.6-10.2) L Total Bilirubin 0.4 mg/dL (0.0-1.2) 0.4 mg/dL (0.0-1.2) Aspartate Amino Transf (AST/SGOT) 22 U/L (5-40) 15 U/L (5-40) Alanine Aminotransferase (ALT/SGPT) 7 U/L (3-33) 6 U/L (3-33) Alkaline Phosphatase 123 U/L (35-104) H 123 U/L (35-104) H Total Creatine Kinase 45 U/L (26-140) Creatine Kinase MB < 1.5 ng/mL (< 3.8) Creatine Kinase MB Relative Index Troponin I < 0.30 ng/mL (<=0.30) Total Protein 8.0 g/dL (6.6-8.7) 8.0 g/dL (6.6-8.7) Albumin 3.2 g/dL (3.5-5.2) L 3.3 g/dL (3.5-5.2) L Globulin 4.8 g/dL 4.7 g/dL Albumin/Globulin Ratio 0.6 (1.0-2.7) L 0.7 (1.0-2.7) L Urine Color Yellow Urine Appearance Clear Urine pH 8 (4.5-8.0) Urine Specific [place] 1.005 (1.005-1.035) Urine Protein 4+ (NEGATIVE) H Urine Glucose (UA) Negative (NEGATIVE) Urine Ketones Negative (NEGATIVE) Urine Occult Blood 3+ (NEGATIVE) H Urine Nitrite Negative (NEGATIVE) Urine Bilirubin Negative (NEGATIVE) Urine Urobilinogen Normal MG/DL (0.0-1.0) Urine Leukocyte Esterase 3+ (NEGATIVE) H Urine RBC 5-10 /HPF (0 - 2) H Urine WBC 5-10 /HPF (0 - 2) H Urine Squamous Epithelial Cells Few /LPF (NONE/OCC) Urine Bacteria Few /HPF (NONE) Microbiology Date/Time Source Procedure Growth Status 04/17/16 11:50 Stool Received BETTIE URBANO Apr 17, 2016 16:54
[2016-04-17] MEDS: Lactulose 20gm/30ml UDC ORAL SCH ×2 (17:20→21:30)
[2016-04-17] MEDS: Morphine Sulfate 2mg/ml Inj IVP PRN (19:19)
[2016-04-17 20:26] VITALS: BP 143/84
--- NOTE | 2016-04-17 20:58 | Consultation ---
DATE OF CONSULTATION: 04/17/2016 CARDIOLOGY CONSULTATION REFERRING PHYSICIAN: Bailee Shaw M.D. REASON FOR REFERRAL: Shortness of breath. HISTORY OF PRESENT ILLNESS: This is a 61-year-old female, who has multiple medical problems as listed below. The patient admitted to the hospital for transfer from the [facility] because of shortness of breath. She has shortness of breath with walking long distances she states. She is able to walk around from the facility from bed to bathroom, but does not get short of breath. She does not have really any PND, but uses two pillows as she is provided with those. She never had a sleep in a sitting position. There is no palpitations. She occasional has some dizziness or lightheadedness. PAST MEDICAL HISTORY: Her past medical history is extensive. She has recently been hospitalized at [facility] for history of CHF with diastolic failure, diabetes mellitus, polysubstance abuse, and end-stage renal disease, on hemodialysis, abdominal pain, hyperkalemia, severe deconditioning, systemic hypertension, malnutrition and anemia of chronic disease. She has had evaluations here previously as well. She has had a history of AV fistula in her arm during the last hospitalization that I have seen her here back in September 2015. She was noted to have abnormal liver function test and thrombocytopenia. She was noted to have pancreatitis, abnormal function with thrombocytopenia, significant tricuspid or aortic regurgitation, pulmonary hypertension, hypothyroidism and ischemic evaluation did not show any reversible defects. MEDICATIONS: The patient's medications from a convalescent facility includes amlodipine 10 mg, Tylenol, aspirin 325 mg, Benadryl, clonidine 0.1 mg q.6 hours p.r.n., Colace, vitamin B12 5000, Duo-Neb, Lovenox 30 mg daily, hydralazine 50 mg every eight hours, Nephro-Vahid 0.8 mg, she takes nitroglycerin on an p.r.n. basis, Protonix 40 mg, Renvela 4000 mg by mouth after meals, Sensipar, Seroquel 100 mg, tramadol, trazodone 100 mg at bedtime and Zofran as well. ALLERGIES: She is not allergic to any medication. SOCIAL HISTORY: She used to smoke and drink until a few months ago. Denies any excessive smoking or drinking. She has had no drug use previously. REVIEW OF SYSTEMS: Gastrointestinal: She has had significant amount of constipation, when she has have a bowel movement, she is in tears. Genitourinary: She states when she has to urinate, she is in tears as well. No blood in the urine. She did have some bloody stools that she says she got evaluated for a few days ago. Pulmonary: No significant coughing or wheezing. Constitutional: Negative except for the fact that she has had significant amount of weight loss. Neurological: She has had numbness and tingling sensation in her arms and legs. PHYSICAL EXAMINATION: GENERAL: The patient to be in an elderly female, in no apparent respiratory distress. NECK: Supple. No jugular venous distention. No bruits are noted. LUNGS: Decreased breath sounds noted in the bases. CARDIAC: Regular rate and rhythm. Diastolic murmur, holosystolic visual murmur noted. No RV lift, heaves or thrills noted. ABDOMEN: Soft, protuberant and distended fluid wave is noted. EXTREMITIES: There is no significant clubbing, cyanosis nor is there any edema. NEUROLOGICAL: She is awake, alert, and responsive, and in no apparent respiratory distress. LABORATORY AND DIAGNOSTIC DATA: She has had x-ray of her chest that showed bilateral congestive changes persistent versus recurrent and increased since prior evaluation stable submental atelectasis versus left lower lung and intravascular stent placed in the region of the right subclavian brachiocephalic vein and the PICC line, apparently that she had before it has been removed. She has had a CT scan that was performed here that shows marked ascites resulted in abdominal pelvic distention, both dilated and not dilated small bowels favor ileus or obstruction, collapsed the colon and rectum, bilateral end-stage renal disease, Escobedo catheter, diffuse body wall edema compatible with anasarca, pleural effusions nonspecific maybe secondary to presence of ascites and pleural effusion. White count of 5.3, hemoglobin 10.4, and a platelet count of 252,000. Sodium 135, potassium 5.7, chloride 90, bicarbonate 28, BUN 32, creatinine 6.0 and glucose of 61. Calcium is 6.8 with an albumin of 3.3. Alkaline phosphatase 123. HDL and ALT is 15 and 6 respectively. Urinalysis 3+ blood, 3+ leukocyte esterase, 5 to 10 RBCs and 5 to 10 WBCs. ASSESSMENT AND PLAN: 1. Dyspnea, probably secondary ascites as well as diastolic dysfunction. 2. Valvular heart disease with aortic and tricuspid regurgitation. 3. Liver disease history. 4. End-stage renal disease. 5. Significant weight loss. 6. Anemia. 7. Constipation. Dr. Shaw, this patient was seen in cardiac consultation. The patient has had an echocardiogram previously showed significant tricuspid regurgitation and aortic regurgitation. She does not have any significant peripheral edema at the present time, although suspect it is related to her dialysis status. She does have significant ascites and I think that it may be worthwhile doing a paracentesis to help relieve some of the pressure on the abdomen as well as dialysis when scheduled. One should consider possibility of multiple myeloma as a cause of her significant issues, although being in that differential. I will reorder the echocardiogram to evaluate the status of her LV systolic function. Dialysis as per Dr. Sargent. She has difficulty with urination and urine culture should be sent. Kevyn Dillard M.D. DR: ANETA JOB#: [id number] CC:
[2016-04-17] MEDS ORDERED: Docusate 100mg cap ORAL SCH (21:00)
[2016-04-17] MEDS ORDERED: Sensipar 30mg Tab ORAL SCH (21:00)
[2016-04-17] MEDS: Docusate 100mg cap ORAL SCH (21:29)
[2016-04-17] MEDS: HydrALAZINE 50mg tab ORAL SCH (21:29)
[2016-04-17] MEDS: Heparin 5000 units/ml inj SUBQ SCH (21:37)
[2016-04-17] MEDS ORDERED: HydrALAZINE 50mg tab ORAL SCH (22:00)
[2016-04-17] MEDS: TraZODone 100mg tab ORAL SCH (23:09)
[2016-04-17] MEDS: Dextrose 10% 1,000 ML IV SCH (23:10)
--- NOTE | 2016-04-17 23:26 | Consultation ---
History of Present Illness General Date patient seen: Apr 17, 2016 Chief Complaint: Abdominal Pain Referring physician: ROSS HODGES Reason for Consultation: effusion, atelectasis Present Illness HPI 61-year-old female with hx of ESRF, on HD, senior care residentPEGGY to ED complaining of sharp chest pain and abdominal pain x4 days. . No aggravating or relieving factors. States her abdomen is distended. Denies nausea or vomiting. She gets dialysis Sunday. Her initial CXR in ER showed that she has pulmonary edema and RLL atelectasis. Allergies: Coded Allergies: No Known Allergies (Unverified , 09/20/15) Medication History Scheduled Amlodipine Besylate* (Amlodipine Besylate*), 10 MG ORAL DAILY, (Reported) Aspirin* (Aspirin*), 325 MG ORAL DAILY, (Reported) Calcitriol (Rocaltrol), 0.25 MCG PO DAILY, (Reported) Cephalexin* (Keflex*), 250 MG ORAL BID, (Reported) Cinacalcet Hcl (Sensipar), 90 MG PO DAILY, (Reported) Clonidine Hcl* (Catapres*), 0.1 MG ORAL EVERY 6 HOURS, (Reported) Cyanocobalamin (Vitamin B-12)* (Vitamin B-12*), 1,000 MCG ORAL DAILY, (Reported) Diphenoxylate HCl/Atropine (Lomotil Tablet), 1 EACH PO Q4HR, (Reported) Docusate Sodium* (Docusil*), 100 MG ORAL Q12HR, (Reported) Doxazosin Mesylate* (Cardura*), 2 MG ORAL DAILY, (Reported) Enoxaparin* (Lovenox*), 30 MG SUBQ DAILY, (Reported) Guaifenesin/Dextromethorphan (Guaifenesin-Dm Solution), 10 ML PO Q4HR, (Reported ) Hydralazine Hcl* (Hydralazine Hcl*), 50 MG ORAL EVERY 8 HOURS, (Reported) Hydromorphone Hcl (Dilaudid), 1 MG PO NEEDED, (Reported) Lactulose (Lactulose*), 30 ML ORAL Q8HR, (Reported) Lisinopril (Lisinopril*), 5 MG ORAL DAILY, (Reported) Losartan Potassium (Cozaar), 100 MG ORAL DAILY, (Reported) Mag Hydrox/Al Hydrox/Simeth (Maalox Advanced Suspension), 30 ML PO EVERY 12 HOURS, (Reported) Metoclopramide Hcl* (Reglan*), 5 MG ORAL EVERY 6 HOURS, (Reported) Omeprazole (Omeprazole), 20 MG ORAL DAILY, (Reported) Sevelamer Hcl (Renagel), 800 MG ORAL THREE TIMES A DAY, (Reported) Thiamine Hcl* (Vitamin B-1*), 100 MG ORAL DAILY, (Reported) Trazodone Hcl* (Desyrel*), 100 MG ORAL BEDTIME, (Reported) Scheduled PRN Acetaminophen (Acetaminophen), 650 MG ORAL Q6H PRN for Prn Headache/Temp > 101, (Reported) Clonidine Hcl* (Catapres*), 0.1 MG ORAL EVERY 6 HOURS PRN for AD, (Reported) Dextrose 50 % in Water (Dextrose 50%-Water Syringe), 50 ML IV for Hypoglycemia, (Reported) Diphenhydramine Hcl* (Benadryl*), 25 MG ORAL Q6H PRN for Itching, (Reported) Hydrocodone Bit/Acetaminophen 5-325* ([place] 5-325*), 1 TAB ORAL Q4H PRN for For Pain, (Reported) Lorazepam* (Ativan*), 0.5 MG ORAL Q4HR PRN for AD, (Reported) Melatonin (Melatonin 3 Mg Tablet), 1 TAB ORAL BEDTIME PRN for Insomnia, ( Reported) Ondansetron Odt* (Zofran Odt*), 4 MG ORAL Q6H PRN for Nausea & Vomiting, ( Reported) Tramadol Hcl* (Ultram*), 50 MG ORAL Q6H PRN for For Pain, (Reported) Miscellaneous Medications Calcitriol (Rocaltrol), 0.25 MCG PO, (Reported) Calcium Carbonate/Vitamin D3 (Calcium 600 + Vit D 400 Tablet), 1 EACH PO, ( Reported) Insulin Aspart* (Novolog*), 0 SUBQ, (Reported) Patient History History Provided By: Patient Healthcare decision maker Resuscitation status Advanced Directive on File Past Medical/Surgical History Past Medical/Surgical History: (1) CHF (congestive heart failure) (2) HTN (hypertension) (3) Hyperkalemia (4) Hepatomegaly (5) Anemia (6) Ileus (7) H/O ETOH abuse Review of Systems Constitutional: Reports: malaise, weakness Gastrointestinal: Reports: abdominal pain Physical Exam General Appearance: WD/WN Lines, tubes and drains: peripheral, central line HEENT: normocephalic, atraumatic Neck: non-tender, normal alignment Respiratory/Chest: chest wall non-tender, lungs clear, normal breath sounds, no respiratory distress Cardiovascular/Chest: normal peripheral pulses, normal rate Abdomen: normal bowel sounds Extremities: normal range of motion, non-tender Last 24 Hour Vital Signs Date Time Temp Pulse Resp B/P Pulse Ox O2 Delivery O2 Flow Rate FiO2 04/17/16 21:29 143/84 04/17/16 20:26 97.9 96 19 143/84 96 Nasal Cannula 2.0 04/17/16 20:00 95 04/17/16 16:13 97.7 111 19 148/94 94 Room Air 04/17/16 16:00 111 04/17/16 15:29 103 18 127/81 95 Room Air 04/17/16 14:30 103 18 127/81 95 Room Air 04/17/16 12:30 106 20 135/87 98 Room Air 04/17/16 10:09 104 18 131/85 98 Room Air Laboratory Tests Test 04/17/16 10:45 04/17/16 11:50 04/17/16 13:20 04/17/16 17:20 White Blood Count 5.3 K/UL (4.8-10.8) Red Blood Count 3.40 M/UL (4.20-5.40) L Hemoglobin 10.4 G/DL (12.0-16.0) L Hematocrit 33.3 % (37.0-47.0) L Mean Corpuscular Volume 98 FL (80-99) Mean Corpuscular Hemoglobin 30.4 PG (27.0-31.0) Mean Corpuscular Hemoglobin Concent 31.1 G/DL (32.0-36.0) L Red Cell Distribution Width 18.0 % (11.6-14.8) H Platelet Count 252 K/UL (150-450) Mean Platelet Volume 6.3 FL (6.5-10.1) L Neutrophils (%) (Auto) 67.5 % (45.0-75.0) Lymphocytes (%) (Auto) 18.6 % (20.0-45.0) L Monocytes (%) (Auto) 9.1 % (1.0-10.0) Eosinophils (%) (Auto) 3.6 % (0.0-3.0) H Basophils (%) (Auto) 1.1 % (0.0-2.0) Sodium Level 136 mEQ/L (135-145) 135 mEQ/L (135-145) Potassium Level 6.1 mEQ/L (3.4-4.9) *H 5.7 mEQ/L (3.4-4.9) H Chloride Level 91 mEQ/L (98-107) L 90 mEQ/L (98-107) L Carbon Dioxide Level 28 mEQ/L (20-30) 28 mEQ/L (20-30) Anion Gap 17 (5-15) H 17 (5-15) H Blood Urea Nitrogen 32 mg/dL (7-23) H 33 mg/dL (7-23) H Creatinine 5.8 mg/dL (0.5-0.9) H 6.0 mg/dL (0.5-0.9) H Estimat Glomerular Filtration Rate 9.0 mL/min (>60) 8.6 mL/min (>60) Glucose Level 59 mg/dL (74-106) L 61 mg/dL (74-106) L Lactic Acid Level 0.70 mmol/L (0.66-2.22) Calcium Level 6.7 mg/dL (8.6-10.2) L 6.8 mg/dL (8.6-10.2) L Total Bilirubin 0.4 mg/dL (0.0-1.2) 0.4 mg/dL (0.0-1.2) Aspartate Amino Transf (AST/SGOT) 22 U/L (5-40) 15 U/L (5-40) Alanine Aminotransferase (ALT/SGPT) 7 U/L (3-33) 6 U/L (3-33) Alkaline Phosphatase 123 U/L (35-104) H 123 U/L (35-104) H Total Creatine Kinase 45 U/L (26-140) Creatine Kinase MB < 1.5 ng/mL (< 3.8) Creatine Kinase MB Relative Index Troponin I < 0.30 ng/mL (<=0.30) Total Protein 8.0 g/dL (6.6-8.7) 8.0 g/dL (6.6-8.7) Albumin 3.2 g/dL (3.5-5.2) L 3.3 g/dL (3.5-5.2) L 3.4 g/dL (3.5-5.2) L Globulin 4.8 g/dL 4.7 g/dL Albumin/Globulin Ratio 0.6 (1.0-2.7) L 0.7 (1.0-2.7) L Urine Color Yellow Urine Appearance Clear Urine pH 8 (4.5-8.0) Urine Specific [place] 1.005 (1.005-1.035) Urine Protein 4+ (NEGATIVE) H Urine Glucose (UA) Negative (NEGATIVE) Urine Ketones Negative (NEGATIVE) Urine Occult Blood 3+ (NEGATIVE) H Urine Nitrite Negative (NEGATIVE) Urine Bilirubin Negative (NEGATIVE) Urine Urobilinogen Normal MG/DL (0.0-1.0) Urine Leukocyte Esterase 3+ (NEGATIVE) H Urine RBC 5-10 /HPF (0 - 2) H Urine WBC 5-10 /HPF (0 - 2) H Urine Squamous Epithelial Cells Few /LPF (NONE/OCC) Urine Bacteria Few /HPF (NONE) Test 04/17/16 17:45 Glucose Level 63 mg/dL (74-106) L Microbiology Date/Time Source Procedure Growth Status 04/17/16 11:50 Stool Received Height (Feet): 5 Height (Inches): 5.00 Weight (Pounds): 140 Medications Current Medications Medications (Trade) Dose Ordered Sig/Ranjan Route PRN Reason Start Time Stop Time Status Last Admin Dose Admin Acetaminophen (Tylenol) 650 mg Q6H PRN ORAL Prn Headache/Temp > 101 04/17/16 16:15 05/17/16 16:14 Albuterol/ Ipratropium (DuoNeb 0.5-3(2.5)mg/3ml) 3 ml Q6H PRN HHN dyspnea 04/17/16 14:30 04/22/16 14:29 Amlodipine Besylate 10 mg 10 mg DAILY ORAL 04/18/16 09:00 05/18/16 08:59 Aspirin (ASA) 325 mg DAILY ORAL 04/17/16 17:00 05/17/16 16:59 04/17/16 17:20 Cinacalcet (Sensipar) 60 mg QHS ORAL 04/17/16 21:00 05/17/16 20:59 04/17/16 21:29 Clonidine HCl (Catapres) 0.1 mg Q4H PRN ORAL For High Blood Pressure 04/17/16 14:30 05/17/16 14:29 Dextrose (D10w) 1,000 ml @ 50 mls/hr Q20H IV 04/17/16 23:00 05/17/16 22:59 04/17/16 23:10 Dextrose (Dextrose 50%) STAT PRN IV Hypoglycemia 04/17/16 14:30 05/17/16 14:29 04/17/16 21:56 Docusate Sodium (Colace) 100 mg TID ORAL 04/17/16 21:00 05/17/16 20:59 04/17/16 21:29 Furosemide (Lasix) 100 mg Q8H PRN IV dyspnea 04/17/16 14:30 05/17/16 14:29 Heparin Sodium (Porcine) (Heparin 5000 units/ml) 5,000 units EVERY 12 HOURS SUBQ 04/17/16 21:00 05/17/16 20:59 04/17/16 21:37 Hydralazine HCl (Apresoline) 50 mg EVERY 8 HOURS ORAL 04/17/16 22:00 05/17/16 21:59 04/17/16 21:29 Insulin Aspart (NovoLOG) BEFORE MEALS AND HS SUBQ 04/17/16 16:30 05/17/16 16:29 Lactulose (Cephulac) 20 gm Q8HR ORAL 04/17/16 17:00 05/17/16 16:59 04/17/16 21:30 Metoclopramide HCl (Reglan) 5 mg TIAC ORAL 04/17/16 17:00 05/17/16 16:59 04/17/16 19:18 Morphine Sulfate (Morphine Sulfate) 1 mg Q4H PRN IVP For Pain 04/17/16 14:30 04/24/16 14:29 04/17/16 19:19 Ondansetron HCl (Zofran) 4 mg Q6H PRN IVP Nausea & Vomiting 04/17/16 14:30 05/17/16 14:29 Pantoprazole (Protonix) 40 mg DAILY ORAL 04/18/16 09:00 05/18/16 08:59 Polyethylene Glycol (Miralax) 17 gm HSPRN PRN ORAL Constipation 04/17/16 14:30 05/17/16 14:29 Sevelamer Carbonate (Renvela) 1,600 mg TIAC ORAL 04/17/16 17:00 05/17/16 16:59 04/17/16 17:20 Thiamine HCl (Vitamin B1) 100 mg DAILY ORAL 04/18/16 09:00 05/18/16 08:59 Trazodone HCl (Desyrel) 100 mg BEDTIME ORAL 04/17/16 21:00 05/17/16 20:59 04/17/16 23:09 Zolpidem Tartrate (Ambien) 5 mg HSPRN PRN ORAL Insomnia 04/17/16 14:30 05/17/16 14:29 Assessment/Plan Problem List: (1) Pulmonary edema ICD Codes: J81.1 - Chronic pulmonary edema SNOMED: 12621587 Qualifiers: Qualified Codes: J81.0 - Acute pulmonary edema (2) ACS (acute coronary syndrome) ICD Codes: I24.9 - Acute ischemic heart disease, unspecified SNOMED: 282110519 (3) Atelectasis ICD Codes: J98.11 - Atelectasis SNOMED: 39273685 (4) Abdominal pain ICD Codes: R10.9 - Unspecified abdominal pain SNOMED: 69029524 (5) H/O ETOH abuse ICD Codes: Z87.898 - Personal history of other specified conditions SNOMED: 588276424 (6) HTN (hypertension) ICD Codes: I10 - Essential (primary) hypertension SNOMED: 61759404 Qualifiers: Qualified Codes: I10 - Essential (primary) hypertension Assessment/Plan respiratory treatment titrate fio2 to sat of 92% HD Gi evaluation check electrolytes cxr in [facility] Apr 17, 2016 23:26
[2016-04-18] VITALS (8 sets, daily range): BP systolic 116–193; BP diastolic 72–94
[2016-04-18] MEDS: Morphine Sulfate 2mg/ml Inj IVP PRN ×3 (02:11→21:20)
[2016-04-18] MEDS: HydrALAZINE 50mg tab ORAL SCH ×3 (06:00→21:16)
[2016-04-18] MEDS: Lactulose 20gm/30ml UDC ORAL SCH ×3 (06:00→21:16)
[2016-04-18] MEDS: NovoLOG Insulin Flexpen SUBQ SCH ×4 (06:30→21:00)
[2016-04-18 07:06] LABS: AMMONIA 40 umol/L (11-51)
[2016-04-18 07:16] LABS: THYROID STIMULATING HORMONE 11.14 uIU/mL (0.300-4.500)
[2016-04-18 07:17] LABS: ALBUMIN/GLOBULIN RATIO 0.7 (1.0-2.7); CALCIUM 6.7 mg/dL (8.6-10.2); CHOLESTEROL/HDL RATIO 2.7 (3.3-4.4); CREATININE 6.2 mg/dL (0.5-0.9); GLOMERULAR FILTRATION RATE 8.4 mL/min (>60); INR 1.6 (0.9-1.1); POTASSIUM 5.5 mEQ/L (3.4-4.9); PROTHROMBIN TIME 16.4 SEC (9.30-11.50); TOTAL PROTEIN 7.8 g/dL (6.6-8.7)
[2016-04-18 07:20] LABS: LIPASE 8 U/L (< 60); MAGNESIUM 2.4 mg/dL (1.7-2.5); PHOSPHORUS 4.1 mg/dL (2.5-4.8); URIC ACID 5.4 mg/dL (3.0-7.5)
[2016-04-18 07:28] LABS: BASOPHILS % (AUTO) 1.5 % (0.0-2.0); EOSINOPHILS % (AUTO) 2.3 % (0.0-3.0); LYMPHOCYTES % (AUTO) 11.5 % (20.0-45.0); MEAN CORPUSCULAR HEMOGLOBIN 30.6 PG (27.0-31.0); MEAN CORPUSCULAR HGB CONC 31.8 G/DL (32.0-36.0); MEAN CORPUSCULAR VOLUME 96 FL (80-99); NEUTROPHILS % (AUTO) 77.8 % (45.0-75.0); PLATELET COUNT 214 K/UL (150-450); RED BLOOD COUNT 3.48 M/UL (4.20-5.40); RED CELL DISTRIBUTION WIDTH 17.3 % (11.6-14.8); WHITE BLOOD COUNT 4.7 K/UL (4.8-10.8)
[2016-04-18 07:48] LABS: HEMOGLOBIN A1C 5.2 % (< 6.0)
[2016-04-18] MEDS: Thiamine 100mg tab ORAL SCH (08:57)
[2016-04-18] MEDS: Docusate 100mg cap ORAL SCH ×3 (08:58→17:13)
[2016-04-18] MEDS: Heparin 5000 units/ml inj SUBQ SCH ×2 (08:58→21:00)
--- NOTE | 2016-04-18 09:39 | GI Progress Note ---
Assessment/Plan Problems: (1) GERD (gastroesophageal reflux disease) ICD Codes: K21.9 - Gastro-esophageal reflux disease without esophagitis SNOMED: 081136401 (2) Ileus ICD Codes: K56.7 - Ileus, unspecified SNOMED: 601607980 (3) Anemia ICD Codes: D64.9 - Anemia, unspecified SNOMED: 212469831 (4) ESRD (end stage renal disease) ICD Codes: N18.6 - End stage renal disease SNOMED: 85917367 (5) Ascites ICD Codes: R18.8 - Other ascites SNOMED: 510550688 Qualifiers: Qualified Codes: R18.8 - Other ascites (6) Abnormal LFTs ICD Codes: R79.89 - Other specified abnormal findings of blood chemistry SNOMED: 057974180 (7) H/O ETOH abuse ICD Codes: Z87.898 - Personal history of other specified conditions SNOMED: 828816018 Status: unchanged Status Narrative Discussed with Dr. Reyes. Assessment/Plan CA19-9 >> 78.93 APCT reviewed >> Marked ascites resulting in abdominal pelvic distention, etiology indeterminate, see full report. OB stool uncollected ordered GGTP fu paracentesis + r/o SBP, will calculate SAAG to determine source of ascites fu Hep panel fu tumor markers; AFP, CEA, CA 125-5 cont lactulose renal diet bowel regime ppi fu labs Subjective Gastrointestinal/Abdominal: Reports: abdomen distended, abdominal pain Objective Last 24 Hour Vital Signs Date Time Temp Pulse Resp B/P Pulse Ox O2 Delivery O2 Flow Rate FiO2 04/18/16 08:57 103 181/88 04/18/16 08:54 103 181/88 04/18/16 08:39 Nasal Cannula 2.0 04/18/16 08:39 Nasal Cannula 2.0 04/18/16 08:28 Nasal Cannula 04/18/16 07:51 96.6 108 18 193/87 95 Nasal Cannula 2.0 04/18/16 06:00 158/94 04/18/16 05:00 Nasal Cannula 04/18/16 04:00 98.5 104 18 158/94 97 Nasal Cannula 2.0 04/18/16 04:00 107 04/18/16 00:00 93 04/18/16 00:00 97.0 91 19 155/90 96 Nasal Cannula 2.0 04/17/16 21:29 143/84 04/17/16 20:26 97.9 96 19 143/84 96 Nasal Cannula 2.0 04/17/16 20:00 95 04/17/16 16:13 97.7 111 19 148/94 94 Room Air 04/17/16 16:00 111 04/17/16 15:29 103 18 127/81 95 Room Air 04/17/16 14:30 103 18 127/81 95 Room Air 04/17/16 12:30 106 20 135/87 98 Room Air 04/17/16 10:09 104 18 131/85 98 Room Air Intake and Output 04/17/16 04/18/16 18:59 06:59 Intake Total 0 ml 575 ml Output Total 80 ml Balance 0 ml 495 ml Intake Oral 0 ml 240 ml IV Total 335 ml Output Urine Total 80 ml # Bowel Movements 1 Laboratory Tests Test 04/17/16 10:45 04/17/16 11:50 04/17/16 13:20 04/17/16 17:20 White Blood Count 5.3 K/UL (4.8-10.8) Red Blood Count 3.40 M/UL (4.20-5.40) L Hemoglobin 10.4 G/DL (12.0-16.0) L Hematocrit 33.3 % (37.0-47.0) L Mean Corpuscular Volume 98 FL (80-99) Mean Corpuscular Hemoglobin 30.4 PG (27.0-31.0) Mean Corpuscular Hemoglobin Concent 31.1 G/DL (32.0-36.0) L Red Cell Distribution Width 18.0 % (11.6-14.8) H Platelet Count 252 K/UL (150-450) Mean Platelet Volume 6.3 FL (6.5-10.1) L Neutrophils (%) (Auto) 67.5 % (45.0-75.0) Lymphocytes (%) (Auto) 18.6 % (20.0-45.0) L Monocytes (%) (Auto) 9.1 % (1.0-10.0) Eosinophils (%) (Auto) 3.6 % (0.0-3.0) H Basophils (%) (Auto) 1.1 % (0.0-2.0) Sodium Level 136 mEQ/L (135-145) 135 mEQ/L (135-145) Potassium Level 6.1 mEQ/L (3.4-4.9) *H 5.7 mEQ/L (3.4-4.9) H Chloride Level 91 mEQ/L (98-107) L 90 mEQ/L (98-107) L Carbon Dioxide Level 28 mEQ/L (20-30) 28 mEQ/L (20-30) Anion Gap 17 (5-15) H 17 (5-15) H Blood Urea Nitrogen 32 mg/dL (7-23) H 33 mg/dL (7-23) H Creatinine 5.8 mg/dL (0.5-0.9) H 6.0 mg/dL (0.5-0.9) H Estimat Glomerular Filtration Rate 9.0 mL/min (>60) 8.6 mL/min (>60) Glucose Level 59 mg/dL (74-106) L 61 mg/dL (74-106) L Lactic Acid Level 0.70 mmol/L (0.66-2.22) Calcium Level 6.7 mg/dL (8.6-10.2) L 6.8 mg/dL (8.6-10.2) L Total Bilirubin 0.4 mg/dL (0.0-1.2) 0.4 mg/dL (0.0-1.2) Aspartate Amino Transf (AST/SGOT) 22 U/L (5-40) 15 U/L (5-40) Alanine Aminotransferase (ALT/SGPT) 7 U/L (3-33) 6 U/L (3-33) Alkaline Phosphatase 123 U/L (35-104) H 123 U/L (35-104) H Total Creatine Kinase 45 U/L (26-140) Creatine Kinase MB < 1.5 ng/mL (< 3.8) Creatine Kinase MB Relative Index Troponin I < 0.30 ng/mL (<=0.30) Total Protein 8.0 g/dL (6.6-8.7) 8.0 g/dL (6.6-8.7) Albumin 3.2 g/dL (3.5-5.2) L 3.3 g/dL (3.5-5.2) L 3.4 g/dL (3.5-5.2) L Globulin 4.8 g/dL 4.7 g/dL Albumin/Globulin Ratio 0.6 (1.0-2.7) L 0.7 (1.0-2.7) L Urine Color Yellow Urine Appearance Clear Urine pH 8 (4.5-8.0) Urine Specific [place] 1.005 (1.005-1.035) Urine Protein 4+ (NEGATIVE) H Urine Glucose (UA) Negative (NEGATIVE) Urine Ketones Negative (NEGATIVE) Urine Occult Blood 3+ (NEGATIVE) H Urine Nitrite Negative (NEGATIVE) Urine Bilirubin Negative (NEGATIVE) Urine Urobilinogen Normal MG/DL (0.0-1.0) Urine Leukocyte Esterase 3+ (NEGATIVE) H Urine RBC 5-10 /HPF (0 - 2) H Urine WBC 5-10 /HPF (0 - 2) H Urine Squamous Epithelial Cells Few /LPF (NONE/OCC) Urine Bacteria Few /HPF (NONE) Test 04/17/16 17:45 04/18/16 06:10 Glucose Level 63 mg/dL (74-106) L 94 mg/dL (74-106) White Blood Count 4.7 K/UL (4.8-10.8) L Red Blood Count 3.48 M/UL (4.20-5.40) L Hemoglobin 10.7 G/DL (12.0-16.0) L Hematocrit 33.5 % (37.0-47.0) L Mean Corpuscular Volume 96 FL (80-99) Mean Corpuscular Hemoglobin 30.6 PG (27.0-31.0) Mean Corpuscular Hemoglobin Concent 31.8 G/DL (32.0-36.0) L Red Cell Distribution Width 17.3 % (11.6-14.8) H Platelet Count 214 K/UL (150-450) Mean Platelet Volume 6.0 FL (6.5-10.1) L Neutrophils (%) (Auto) 77.8 % (45.0-75.0) H Lymphocytes (%) (Auto) 11.5 % (20.0-45.0) L Monocytes (%) (Auto) 7.0 % (1.0-10.0) Eosinophils (%) (Auto) 2.3 % (0.0-3.0) Basophils (%) (Auto) 1.5 % (0.0-2.0) Prothrombin Time 16.4 SEC (9.30-11.50) H Prothromb Time International Ratio 1.6 (0.9-1.1) H Activated Partial Thromboplast Time 39 SEC (23-33) H Sodium Level 131 mEQ/L (135-145) L Potassium Level 5.5 mEQ/L (3.4-4.9) H Chloride Level 87 mEQ/L (98-107) L Carbon Dioxide Level 26 mEQ/L (20-30) Anion Gap 18 (5-15) H Blood Urea Nitrogen 35 mg/dL (7-23) H Creatinine 6.2 mg/dL (0.5-0.9) H Estimat Glomerular Filtration Rate 8.4 mL/min (>60) Hemoglobin A1c 5.2 % (< 6.0) Uric Acid 5.4 mg/dL (3.0-7.5) Calcium Level 6.7 mg/dL (8.6-10.2) L Phosphorus Level 4.1 mg/dL (2.5-4.8) Magnesium Level 2.4 mg/dL (1.7-2.5) Total Bilirubin 0.3 mg/dL (0.0-1.2) Gamma Glutamyl Transpeptidase 36 U/L (5-36) Aspartate Amino Transf (AST/SGOT) 14 U/L (5-40) Alanine Aminotransferase (ALT/SGPT) 6 U/L (3-33) Alkaline Phosphatase 120 U/L (35-104) H Ammonia 40 umol/L (11-51) Total Creatine Kinase 30 U/L (26-140) Pro-B-Type Natriuretic Peptide 95264 pg/mL (0-125) H Total Protein 7.8 g/dL (6.6-8.7) Total Protein (PEP) Pending Albumin 3.3 g/dL (3.5-5.2) L Albumin (PEP) Pending Globulin 4.5 g/dL Globulin (PEP) Pending Albumin/Globulin Ratio Pending [id number] Pending [id number] Pending Beta Globulins Pending Beta Gamma Globulin Pending PEP Abnormal Protein Bands Pending Protein Electrophoresis Interpret Pending Triglycerides Level 75 mg/dL (< 150) Cholesterol Level 109 mg/dL (< 200) LDL Cholesterol 54 mg/dL (60-99) L HDL Cholesterol 40 mg/dL (> 60) Cholesterol/HDL Ratio 2.7 (3.3-4.4) L Lipase 8 U/L (< 60) Alpha Fetoprotein Pending Carcinoembryonic Antigen 2.1 ng/mL CA 19-9 Antigen 78.93 U/mL (< 37) H CA 125 Antigen Pending Thyroid Stimulating Hormone (TSH) 11.140 uIU/mL (0.300-4.500) Hepatitis A IgM Antibody Pending Hepatitis B Surface Antigen Pending Hepatitis B Core IgM Antibody Pending Hepatitis C Antibody Pending Microbiology Date/Time Source Procedure Growth Status 04/17/16 11:50 Stool Received Height (Feet): 5 Height (Inches): 5.00 Weight (Pounds): 140 General Appearance: no apparent distress, alert Cardiovascular: normal rate Respiratory/Chest: normal breath sounds, no respiratory distress Abdominal Exam: normal bowel sounds, non tender, soft Extremities: normal range of motion Objective Procedure: CT Abdomen Pelvis w/Contrast Indications: Abdominal pain and distention Impression: Marked ascites resulting in abdominal pelvic distention, etiology indeterminate Both dilated and nondilated small bowel, favor ileus over obstruction. Pathologic mural thickening of one or more small bowel loops not excludable. Collapsed colon and rectum. Pathologic mural thickening not excludable. Enlarged, heterogeneous liver compatible with chronic hepatocellular disease. 12 mm enhancing nodule described is nonspecific, may be benign or malignant Gallbladder wall thickening most likely secondary to presence of ascites. Cholecystitis not excludable Bilateral end-stage renal disease Escobedo catheter Diffuse body wall edema compatible with anasarca Pleural effusions, nonspecific, may be secondary to presence of ascites Pericardial effusion, nonspecific Anasarca Pulmonary bibasal subsegmental atelectasis Cardiomegaly Diffuse skeletal sclerosis may represent metastatic neoplasm or metabolic abnormality Degenerative spondylosis Autumn Lutz N.P. Apr 18, 2016 09:39
--- NOTE | 2016-04-18 10:44 | General Progress Note ---
Assessment/Plan Status: stable Assessment/Plan status: ESRD- dialysed 04/18 HyperKalemia- Ascitis- DM HTN At Fib Anemia Plan: optimize cardiac and pulmonary status- BP meds adjustment- 2 D Echo pending- Monitor lytes and renal parameters Per consultants Subjective ROS Limited/Unobtainable: No Constitutional: Reports: malaise Allergies: Coded Allergies: No Known Allergies (Unverified , 09/20/15) Objective Last 24 Hour Vital Signs Date Time Temp Pulse Resp B/P Pulse Ox O2 Delivery O2 Flow Rate FiO2 04/18/16 09:30 115 149/90 04/18/16 08:57 103 181/88 04/18/16 08:54 103 181/88 04/18/16 08:39 Nasal Cannula 2.0 04/18/16 08:39 Nasal Cannula 2.0 04/18/16 08:28 Nasal Cannula 04/18/16 08:07 104 04/18/16 07:51 96.6 108 18 193/87 95 Nasal Cannula 2.0 04/18/16 06:00 158/94 04/18/16 05:00 Nasal Cannula 04/18/16 04:00 98.5 104 18 158/94 97 Nasal Cannula 2.0 04/18/16 04:00 107 04/18/16 00:00 93 04/18/16 00:00 97.0 91 19 155/90 96 Nasal Cannula 2.0 04/17/16 21:29 143/84 04/17/16 20:26 97.9 96 19 143/84 96 Nasal Cannula 2.0 04/17/16 20:00 95 04/17/16 16:13 97.7 111 19 148/94 94 Room Air 04/17/16 16:00 111 04/17/16 15:29 103 18 127/81 95 Room Air 04/17/16 14:30 103 18 127/81 95 Room Air 04/17/16 12:30 106 20 135/87 98 Room Air Intake and Output 04/17/16 04/18/16 19:00 07:00 Intake Total 0 ml 625 ml Output Total 80 ml Balance 0 ml 545 ml Intake Oral 0 ml 240 ml IV Total 385 ml Output Urine Total 80 ml # Bowel Movements 1 Laboratory Tests 04/17/16 10:45: White Blood Count 5.3, Red Blood Count 3.40L, Hemoglobin 10.4L, Hematocrit 33.3L , Mean Corpuscular Volume 98, Mean Corpuscular Hemoglobin 30.4, Mean Corpuscular Hemoglobin Concent 31.1L, Red Cell Distribution Width 18.0H, Platelet Count 252, Mean Platelet Volume 6.3L, Neutrophils (%) (Auto) 67.5, Lymphocytes (%) (Auto) 18.6L, Monocytes (%) (Auto) 9.1, Eosinophils (%) (Auto) 3.6H, Basophils (%) (Auto) 1.1, Sodium Level 136, Potassium Level 6.1*H, Chloride Level 91L, Carbon Dioxide Level 28, Anion Gap 17H, Blood Urea Nitrogen 32H, Creatinine 5.8H, Estimat Glomerular Filtration Rate 9.0, Glucose Level 59L , Lactic Acid Level 0.70, Calcium Level 6.7L, Total Bilirubin 0.4, Aspartate Amino Transf (AST/SGOT) 22, Alanine Aminotransferase (ALT/SGPT) 7, Alkaline Phosphatase 123H, Total Creatine Kinase 45, Creatine Kinase MB < 1.5, Creatine Kinase MB Relative Index , Troponin I < 0.30, Total Protein 8.0, Albumin 3.2L, Globulin 4.8, Albumin/Globulin Ratio 0.6L 04/17/16 11:50: Urine Color Yellow, Urine Appearance Clear, Urine pH 8, Urine Specific [place] 1.005, Urine Protein 4+H, Urine Glucose (UA) Negative, Urine Ketones Negative, Urine Occult Blood 3+H, Urine Nitrite Negative, Urine Bilirubin Negative, Urine Urobilinogen Normal, Urine Leukocyte Esterase 3+H, Urine RBC 5-10H, Urine WBC 5- 10H, Urine Squamous Epithelial Cells Few, Urine Bacteria Few 04/17/16 13:20: Sodium Level 135, Potassium Level 5.7H, Chloride Level 90L, Carbon Dioxide Level 28, Anion Gap 17H, Blood Urea Nitrogen 33H, Creatinine 6.0H, Estimat Glomerular Filtration Rate 8.6, Glucose Level 61L, Calcium Level 6.8L, Total Bilirubin 0.4, Aspartate Amino Transf (AST/SGOT) 15, Alanine Aminotransferase ( ALT/SGPT) 6, Alkaline Phosphatase 123H, Total Protein 8.0, Albumin 3.3L, Globulin 4.7, Albumin/Globulin Ratio 0.7L 04/17/16 17:20: Albumin 3.4L 04/17/16 17:45: Glucose Level 63L 04/18/16 06:10: Glucose Level 94, White Blood Count 4.7L, Red Blood Count 3.48L, Hemoglobin 10.7L, Hematocrit 33.5L, Mean Corpuscular Volume 96, Mean Corpuscular Hemoglobin 30.6, Mean Corpuscular Hemoglobin Concent 31.8L, Red Cell Distribution Width 17.3H, Platelet Count 214, Mean Platelet Volume 6.0L, Neutrophils (%) (Auto) 77.8H, Lymphocytes (%) (Auto) 11.5L, Monocytes (%) (Auto ) 7.0, Eosinophils (%) (Auto) 2.3, Basophils (%) (Auto) 1.5, Prothrombin Time 16.4H, Prothromb Time International Ratio 1.6H, Activated Partial Thromboplast Time 39H, Sodium Level 131L, Potassium Level 5.5H, Chloride Level 87L, Carbon Dioxide Level 26, Anion Gap 18H, Blood Urea Nitrogen 35H, Creatinine 6.2H, Estimat Glomerular Filtration Rate 8.4, Hemoglobin A1c 5.2, Uric Acid 5.4, Calcium Level 6.7L, Phosphorus Level 4.1, Magnesium Level 2.4, Total Bilirubin 0.3, Gamma Glutamyl Transpeptidase 36, Aspartate Amino Transf (AST/SGOT) 14, Alanine Aminotransferase (ALT/SGPT) 6, Alkaline Phosphatase 120H, Ammonia 40, Total Creatine Kinase 30, Pro-B-Type Natriuretic Peptide 20941K, Total Protein 7.8, Total Protein (PEP) [Pending], Albumin 3.3L, Albumin (PEP) [Pending], Globulin 4.5, Globulin (PEP) [Pending], Albumin/Globulin Ratio [Pending], Alpha- 1-Globulins [Pending], Ozisg-4-Empqfffle [Pending], Beta Globulins [Pending], Beta Gamma Globulin [Pending], PEP Abnormal Protein Bands [Pending], Protein Electrophoresis Interpret [Pending], Triglycerides Level 75, Cholesterol Level 109, LDL Cholesterol 54L, HDL Cholesterol 40, Cholesterol/HDL Ratio 2.7L, Lipase 8, Alpha Fetoprotein [Pending], Carcinoembryonic Antigen 2.1, CA 19-9 Antigen 78.93H, CA 125 Antigen [Pending], Thyroid Stimulating Hormone (TSH) 11.140H, Hepatitis A IgM Antibody [Pending], Hepatitis B Surface Antigen [ Pending], Hepatitis B Core IgM Antibody [Pending], Hepatitis C Antibody [Pending ] Height (Feet): 5 Height (Inches): 5.00 Weight (Pounds): 140 General Appearance: no apparent distress Cardiovascular: arrhythmia Respiratory/Chest: decreased breath sounds Abdomen: distended, other - ascitis PEPE MONTERROSO Apr 18, 2016 10:43
[2016-04-18] MEDS ORDERED: Carvedilol 12.5mg tab ORAL ONE (11:30)
--- NOTE | 2016-04-18 13:30 | Pulmonology Progress Note ---
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 Subjective ROS Limited/Unobtainable: No Interval Events: feeling better, got dialyzed Allergies: Coded Allergies: No Known Allergies (Unverified , 09/20/15) Objective Last 24 Hour Vital Signs Date Time Temp Pulse Resp B/P Pulse Ox O2 Delivery O2 Flow Rate FiO2 04/18/16 11:54 110 142/80 04/18/16 11:20 96.8 110 18 142/80 91 Room Air 04/18/16 09:30 115 149/90 04/18/16 08:57 103 181/88 04/18/16 08:54 103 181/88 04/18/16 08:39 Nasal Cannula 2.0 04/18/16 08:39 Nasal Cannula 2.0 04/18/16 08:28 Nasal Cannula 04/18/16 08:07 104 04/18/16 07:51 96.6 108 18 193/87 95 Nasal Cannula 2.0 04/18/16 07:22 Nasal Cannula 2.0 04/18/16 07:21 95 Nasal Cannula 2.0 28 04/18/16 07:20 107 20 Nasal Cannula 2.0 28 04/18/16 06:00 158/94 04/18/16 05:00 Nasal Cannula 04/18/16 04:00 98.5 104 18 158/94 97 Nasal Cannula 2.0 04/18/16 04:00 107 04/18/16 00:00 93 04/18/16 00:00 97.0 91 19 155/90 96 Nasal Cannula 2.0 04/17/16 21:29 143/84 04/17/16 20:26 97.9 96 19 143/84 96 Nasal Cannula 2.0 04/17/16 20:00 95 04/17/16 16:13 97.7 111 19 148/94 94 Room Air 04/17/16 16:00 111 04/17/16 15:29 103 18 127/81 95 Room Air 04/17/16 14:30 103 18 127/81 95 Room Air Intake and Output 04/17/16 04/18/16 19:00 07:00 Intake Total 0 ml 625 ml Output Total 80 ml Balance 0 ml 545 ml Intake Oral 0 ml 240 ml IV Total 385 ml Output Urine Total 80 ml # Bowel Movements 1 General Appearance: WD/WN HEENT: normocephalic, atraumatic, PERRL Respiratory/Chest: lungs clear Breasts: no masses Cardiovascular: normal peripheral pulses Abdomen: normal bowel sounds, soft, non tender Genitourinary: normal external genitalia Extremities: no clubbing Neurologic/Psychiatric: golf club facer II-XII grossly normal, no motor/sensory deficits Microbiology Date/Time Source Procedure Growth Status 04/17/16 11:50 Stool Received Laboratory Tests 04/17/16 17:20: Albumin 3.4L 04/17/16 17:45: Glucose Level 63L 04/18/16 06:10: Albumin 3.3L, Glucose Level 94, White Blood Count 4.7L, Red Blood Count 3.48L, Hemoglobin 10.7L, Hematocrit 33.5L, Mean Corpuscular Volume 96, Mean Corpuscular Hemoglobin 30.6, Mean Corpuscular Hemoglobin Concent 31.8L, Red Cell Distribution Width 17.3H, Platelet Count 214, Mean Platelet Volume 6.0L, Neutrophils (%) (Auto) 77.8H, Lymphocytes (%) (Auto) 11.5L, Monocytes (%) (Auto ) 7.0, Eosinophils (%) (Auto) 2.3, Basophils (%) (Auto) 1.5, Prothrombin Time 16.4H, Prothromb Time International Ratio 1.6H, Activated Partial Thromboplast Time 39H, Sodium Level 131L, Potassium Level 5.5H, Chloride Level 87L, Carbon Dioxide Level 26, Anion Gap 18H, Blood Urea Nitrogen 35H, Creatinine 6.2H, Estimat Glomerular Filtration Rate 8.4, Hemoglobin A1c 5.2, Uric Acid 5.4, Calcium Level 6.7L, Phosphorus Level 4.1, Magnesium Level 2.4, Total Bilirubin 0.3, Gamma Glutamyl Transpeptidase 36, Aspartate Amino Transf (AST/SGOT) 14, Alanine Aminotransferase (ALT/SGPT) 6, Alkaline Phosphatase 120H, Ammonia 40, Total Creatine Kinase 30, Pro-B-Type Natriuretic Peptide [id number], Total Protein 7.8, Total Protein (PEP) [Pending], Albumin (PEP) [Pending], Globulin 4.5, Globulin (PEP) [Pending], Albumin/Globulin Ratio [Pending], Hxutp-0-Ihiztotdl [ Pending], Vpufi-0-Mpmokaekw [Pending], Beta Globulins [Pending], Beta Gamma Globulin [Pending], PEP Abnormal Protein Bands [Pending], Protein Electrophoresis Interpret [Pending], Triglycerides Level 75, Cholesterol Level 109, LDL Cholesterol 54L, HDL Cholesterol 40, Cholesterol/HDL Ratio 2.7L, Lipase 8, Alpha Fetoprotein [Pending], Carcinoembryonic Antigen 2.1, CA 19-9 Antigen 78.93H, CA 125 Antigen [Pending], Thyroid Stimulating Hormone (TSH) 11.140H, Hepatitis A IgM Antibody [Pending], Hepatitis B Surface Antigen [ Pending], Hepatitis B Core IgM Antibody [Pending], Hepatitis C Antibody [Pending ] Current Medications Medications (Trade) Dose Ordered Sig/Ranjan Route PRN Reason Start Time Stop Time Status Last Admin Dose Admin Acetaminophen (Tylenol) 650 mg Q6H PRN ORAL Prn Headache/Temp > 101 04/17/16 16:15 05/17/16 16:14 Albuterol/ Ipratropium (DuoNeb 0.5-3(2.5)mg/3ml) 3 ml Q6H PRN HHN dyspnea 04/17/16 14:30 04/22/16 14:29 Amlodipine Besylate 10 mg 10 mg DAILY ORAL 04/18/16 09:00 05/18/16 08:59 04/18/16 08:57 Aspirin (ASA) 325 mg DAILY ORAL 04/17/16 17:00 05/17/16 16:59 04/17/16 17:20 Carvedilol (Coreg) 12.5 mg EVERY 12 HOURS ORAL 04/18/16 21:00 05/18/16 20:59 Clonidine HCl (Catapres) 0.1 mg Q4H PRN ORAL For High Blood Pressure 04/17/16 14:30 05/17/16 14:29 Dextrose (D10w) 1,000 ml @ 50 mls/hr Q20H IV 04/17/16 23:00 05/17/16 22:59 04/17/16 23:10 Dextrose (Dextrose 50%) STAT PRN IV Hypoglycemia 04/17/16 14:30 05/17/16 14:29 04/17/16 21:56 Docusate Sodium (Colace) 100 mg TID ORAL 04/17/16 21:00 05/17/16 20:59 04/17/16 21:29 Heparin Sodium (Porcine) (Heparin 5000 units/ml) 5,000 units EVERY 12 HOURS SUBQ 04/17/16 21:00 05/17/16 20:59 04/17/16 21:37 Hydralazine HCl (Apresoline) 50 mg EVERY 8 HOURS ORAL 04/17/16 22:00 05/17/16 21:59 04/17/16 21:29 Insulin Aspart (NovoLOG) BEFORE MEALS AND HS SUBQ 04/17/16 16:30 05/17/16 16:29 Lactulose (Cephulac) 20 gm Q8HR ORAL 04/17/16 17:00 05/17/16 16:59 04/17/16 21:30 Metoclopramide HCl (Reglan) 5 mg TIAC ORAL 04/17/16 17:00 05/17/16 16:59 04/18/16 11:55 Morphine Sulfate (Morphine Sulfate) 1 mg Q4H PRN IVP For Pain 04/17/16 14:30 04/24/16 14:29 04/18/16 06:44 Ondansetron HCl (Zofran) 4 mg Q6H PRN IVP Nausea & Vomiting 04/17/16 14:30 05/17/16 14:29 Pantoprazole (Protonix) 40 mg DAILY ORAL 04/18/16 09:00 05/18/16 08:59 04/18/16 08:57 Polyethylene Glycol (Miralax) 17 gm HSPRN PRN ORAL Constipation 04/17/16 14:30 05/17/16 14:29 Sevelamer Carbonate (Renvela) 1,600 mg TIAC ORAL 04/17/16 17:00 05/17/16 16:59 04/18/16 11:54 Thiamine HCl (Vitamin B1) 100 mg DAILY ORAL 04/18/16 09:00 05/18/16 08:59 04/18/16 08:57 Trazodone HCl (Desyrel) 100 mg BEDTIME ORAL 04/17/16 21:00 05/17/16 20:59 04/17/16 23:09 Zolpidem Tartrate (Ambien) 5 mg HSPRN PRN ORAL Insomnia 04/17/16 14:30 05/17/16 14:29 ANN MARIE OSULLIVAN Apr 18, 2016 13:30
--- NOTE | 2016-04-18 16:35 | Diagnostic Imaging Report ---
Indications: Ascites Procedure: Informed consent obtained. Ultrasound used to localize optimal puncture site. Sterile prepping and draping over the optimum site. Local anesthesia with 1% lidocaine. Under real-time ultrasound guidance, puncture of the peritoneal space performed using paracentesis needle. Digital image was saved and archived. Stylet removed. Catheter placed to vacuum bottle suction. Fluid was aspirated. Patient tolerated procedure well, without immediate complication. Findings: Followup sonography demonstrates complete resolution of peritoneal fluid Impression: Successful ultrasound-guided paracentesis, yielding 3.6 liters of fluid
--- NOTE | 2016-04-18 17:26 | History & Physical ---
History and Physical History & Physicial Dictated for Int Med-Dr Albright no. [id number]. JAVIER ALVAREZ Apr 18, 2016 17:26
[2016-04-18] MEDS: Dextrose 10% 1,000 ML IV SCH (19:17)
--- NOTE | 2016-04-18 19:50 | Cardiology Progress Note ---
Assessment/Plan Assessment/Plan 1. Dyspnea, probably secondary ascites as well as diastolic dysfunction. 2. Valvular heart disease with aortic and tricuspid regurgitation. 3. Liver disease history. 4. End-stage renal disease. 5. Significant weight loss. 6. Anemia. 7. Constipation. 8. diastolic dysfunction / failure 9. pericardial effusion 10. pulm htn tele sinus echon note ef is fine s/p 3.5 liter paracentesis gi evla elevated tumor marker spep and uip pending dialysis / uf hs more room Subjective Cardiovascular: Denies: chest pain, lightheadedness Respiratory: Denies: shortness of breath - beter Gastrointestinal/Abdominal: Denies: abdominal pain, constipated Genitourinary: Reports: pain Objective Last 24 Hour Vital Signs Date Time Temp Pulse Resp B/P Pulse Ox O2 Delivery O2 Flow Rate FiO2 04/18/16 19:38 Room Air 04/18/16 19:37 98 18 Room Air 04/18/16 19:37 94 Room Air 04/18/16 16:00 99.0 97 20 116/72 98 Room Air 04/18/16 14:00 142/80 04/18/16 11:54 110 142/80 04/18/16 11:20 96.8 110 18 142/80 91 Room Air 04/18/16 09:30 115 149/90 04/18/16 08:57 103 181/88 04/18/16 08:54 103 181/88 04/18/16 08:39 Nasal Cannula 2.0 04/18/16 08:39 Nasal Cannula 2.0 04/18/16 08:28 Nasal Cannula 04/18/16 08:07 104 04/18/16 07:51 96.6 108 18 193/87 95 Nasal Cannula 2.0 04/18/16 07:22 Nasal Cannula 2.0 04/18/16 07:21 95 Nasal Cannula 2.0 04/18/16 07:20 107 20 Nasal Cannula 2.0 04/18/16 06:00 158/94 04/18/16 05:00 Nasal Cannula 04/18/16 04:00 98.5 104 18 158/94 97 Nasal Cannula 2.0 04/18/16 04:00 107 04/18/16 00:00 93 04/18/16 00:00 97.0 91 19 155/90 96 Nasal Cannula 2.0 04/17/16 21:29 143/84 04/17/16 20:26 97.9 96 19 143/84 96 Nasal Cannula 2.0 04/17/16 20:00 95 General Appearance: no apparent distress, alert Cardiovascular: normal rate, regular rhythm Respiratory/Chest: decreased breath sounds - right base Abdomen: normal bowel sounds, non tender, soft Extremities: no swelling Intake and Output 04/17/16 04/18/16 19:00 07:00 Intake Total 0 ml 625 ml Output Total 80 ml Balance 0 ml 545 ml Intake Oral 0 ml 240 ml IV Total 385 ml Output Urine Total 80 ml # Bowel Movements 1 Laboratory Tests Test 04/18/16 06:10 White Blood Count 4.7 K/UL (4.8-10.8) L Red Blood Count 3.48 M/UL (4.20-5.40) L Hemoglobin 10.7 G/DL (12.0-16.0) L Hematocrit 33.5 % (37.0-47.0) L Mean Corpuscular Volume 96 FL (80-99) Mean Corpuscular Hemoglobin 30.6 PG (27.0-31.0) Mean Corpuscular Hemoglobin Concent 31.8 G/DL (32.0-36.0) L Red Cell Distribution Width 17.3 % (11.6-14.8) H Platelet Count 214 K/UL (150-450) Mean Platelet Volume 6.0 FL (6.5-10.1) L Neutrophils (%) (Auto) 77.8 % (45.0-75.0) H Lymphocytes (%) (Auto) 11.5 % (20.0-45.0) L Monocytes (%) (Auto) 7.0 % (1.0-10.0) Eosinophils (%) (Auto) 2.3 % (0.0-3.0) Basophils (%) (Auto) 1.5 % (0.0-2.0) Prothrombin Time 16.4 SEC (9.30-11.50) H Prothromb Time International Ratio 1.6 (0.9-1.1) H Activated Partial Thromboplast Time 39 SEC (23-33) H Sodium Level 131 mEQ/L (135-145) L Potassium Level 5.5 mEQ/L (3.4-4.9) H Chloride Level 87 mEQ/L (98-107) L Carbon Dioxide Level 26 mEQ/L (20-30) Anion Gap 18 (5-15) H Blood Urea Nitrogen 35 mg/dL (7-23) H Creatinine 6.2 mg/dL (0.5-0.9) H Estimat Glomerular Filtration Rate 8.4 mL/min (>60) Glucose Level 94 mg/dL (74-106) Hemoglobin A1c 5.2 % (< 6.0) Uric Acid 5.4 mg/dL (3.0-7.5) Calcium Level 6.7 mg/dL (8.6-10.2) L Phosphorus Level 4.1 mg/dL (2.5-4.8) Magnesium Level 2.4 mg/dL (1.7-2.5) Total Bilirubin 0.3 mg/dL (0.0-1.2) Gamma Glutamyl Transpeptidase 36 U/L (5-36) Aspartate Amino Transf (AST/SGOT) 14 U/L (5-40) Alanine Aminotransferase (ALT/SGPT) 6 U/L (3-33) Alkaline Phosphatase 120 U/L (35-104) H Ammonia 40 umol/L (11-51) Total Creatine Kinase 30 U/L (26-140) Pro-B-Type Natriuretic Peptide 09479 pg/mL (0-125) H Total Protein 7.8 g/dL (6.6-8.7) Total Protein (PEP) Pending Albumin 3.3 g/dL (3.5-5.2) L Albumin (PEP) Pending Globulin 4.5 g/dL Globulin (PEP) Pending Albumin/Globulin Ratio Pending Hdfsh-6-Viqtymtxc Pending Xddna-1-Euzccybkh Pending Beta Globulins Pending Beta Gamma Globulin Pending PEP Abnormal Protein Bands Pending Protein Electrophoresis Interpret Pending Triglycerides Level 75 mg/dL (< 150) Cholesterol Level 109 mg/dL (< 200) LDL Cholesterol 54 mg/dL (60-99) L HDL Cholesterol 40 mg/dL (> 60) Cholesterol/HDL Ratio 2.7 (3.3-4.4) L Lipase 8 U/L (< 60) Alpha Fetoprotein Pending Carcinoembryonic Antigen 2.1 ng/mL CA 19-9 Antigen 78.93 U/mL (< 37) H CA 125 Antigen Pending Thyroid Stimulating Hormone (TSH) 11.140 uIU/mL (0.300-4.500) Hepatitis A IgM Antibody Pending Hepatitis B Surface Antigen Pending Hepatitis B Core IgM Antibody Pending Hepatitis C Antibody Pending Microbiology Date/Time Source Procedure Growth Status 04/17/16 11:50 Stool Received BETTIE URBANO Apr 18, 2016 19:50
[2016-04-18] MEDS: TraZODone 100mg tab ORAL SCH (21:15)
[2016-04-18] MEDS: Carvedilol 12.5mg tab ORAL SCH (21:15)
--- NOTE | 2016-04-18 21:38 | History and Physical Report ---
DATE OF ADMISSION: 04/17/2016 CHIEF COMPLAINT: The patient is a 61-year-old, female, who presents with chief complaint of abdominal pain and distention. HISTORY OF PRESENT ILLNESS: The patient was apparently admitted to [facility] for two weeks. The patient states she left the [facility] one week ago. The patient was admitted to [facility]. The patient states that she began to experience increasing abdominal distention. The patient also had increasing abdominal pain. The patient states that she was began to have pain on urination. EMS was called to [facility]. The patient was transported to [place] emergency room. The patient was admitted for increasing abdominal distention and abdominal pain to rule out acute spontaneous bacterial peritonitis. PAST MEDICAL HISTORY: Significant for, 1. End-stage renal disease, on hemodialysis every Sunday, Sunday, and Sunday. The patient's last dialysis was on Thursday, April 14, 2016. 2. Hypertension. 3. History of liver cirrhosis. 4. History of alcohol dependence. PAST SURGICAL HISTORY: The patient denies. CURRENT MEDICATIONS: From [facility], 1. Tylenol 650 mg one tablet p.o. q.4 hours p.r.n. 2. Amlodipine 10 mg one tablet p.o. daily. 3. Aspirin 325 mg one tablet p.o. daily. 4. Clonidine 0.1 mg p.o. q.6 hours p.r.n. 5. Cyanocobalamin 1000 mcg daily. 6. DuoNeb p.r.n. shortness of breath. 7. Lovenox 30 mg subcutaneously daily. 8. Nephro-Vahid 0.8 mg one tablet p.o. daily. 9. Hydralazine 50 mg one tablet p.o. q.8 hours. 10. Nitroglycerin 0.4 mg sublingual p.r.n. 11. Protonix 40 mg one tablet p.o. daily. 12. Renvela 800 mg one tablet p.o. 3 times daily. 13. Sensipar 90 mg one tablet p.o. daily. 14. Seroquel 100 mg one tablet p.o. q.h.s. 15. Tramadol 50 mg one tablet p.o. q.6 hours p.r.n. 16. Trazodone 100 mg one tablet p.o. q.h.s. ALLERGIES: No known drug allergies. SOCIAL HISTORY: The patient is a resident of [facility]. The patient denies tobacco use having quit three months ago. The patient denies current alcohol use. REVIEW OF SYSTEMS: Constitutional: The patient denies weight loss or weight gain. The patient denies fevers or chills. HEENT: The patient denies ear or throat pain. The patient denies headache. Cardiovascular: The patient denies palpitations or chest pain. Chest: The patient denies wheeze or shortness of breath. Abdominal: The patient complains of abdominal pain. The patient complains of abdominal distention. The patient denies nausea, vomiting, diarrhea, or constipation. Genitourinary: The patient complains of dysuria. The patient denies increased frequency of urination. Neuromuscular: The patient denies seizures or generalized weakness. PHYSICAL EXAMINATION: VITAL SIGNS: Temperature 96.8 degrees, respirations 18, pulse 110, and blood pressure 142/80. GENERAL: The patient is well-developed, well-nourished, female, in no apparent distress. HEENT: Eyes, pupils are equal and responsive to light and accommodation. Extraocular movements are intact. NECK: Supple without lymphadenopathy. CHEST: Lungs are clear to auscultation bilaterally without wheezes or rales. CARDIOVASCULAR: Regular rhythm and rate. S1 and S2 are normal without murmurs, rubs, or gallops. ABDOMEN: Soft and distended with positive fluid wave. Decreased bowel sounds. No evidence of hepatosplenomegaly. Currently, no rebound or guarding. EXTREMITIES: Negative for clubbing, cyanosis, or edema. RECTAL: Refused. GENITAL: Refused. NEUROLOGIC: Cranial nerves II through XII are grossly intact without focal deficits. Motor strength is 5/5 bilaterally. Deep tendon reflexes are 2+ plantar. LABORATORY AND DIAGNOSTIC STUDIES: WBC 5.2, hemoglobin 10.4, hematocrit 33.3, and platelets 252,000. Sodium 131, potassium 5.5, chloride 87, CO2 26, BUN 35, creatinine elevated at 6.2, and glucose 94. BNP elevated at 40,351. Urinalysis showed 4+ protein, 3+ occult blood, 5 to 10 RBCs, and 5 to [address] scan of the abdomen revealed marked ascites. ASSESSMENT: This is a 61-year-old female. 1. Abdominal pain. 2. Ascites. 3. Elevated liver function tests. 4. End-stage renal disease. 5. Hypertension. 6. Liver cirrhosis. 7. Congestive heart failure. TREATMENT: 1. Abdominal pain. A Gastroenterology consultation was obtained with Dr. Reyes. Abdominal pain is probably secondary to ascites as above. The patient may require paracentesis. We will follow recommendation of Gastroenterology. 2. Elevated liver function tests. This is probably secondary to chronic cirrhosis of the liver. 3. Ascites. This is probably secondary to cirrhosis as above. The patient may require paracentesis. A Gastroenterology consultation was obtained with Dr. Reyes. 4. End-stage renal disease. A Nephrology consultation was obtained with Dr. Sargent. The patient's last dialysis was Thursday, April 14, 2016. We will follow recommendations of Nephrology. 5. Hypertension. Continue Norvasc as above. 6. Liver cirrhosis. 7. Congestive heart failure. A Cardiology consultation was obtained with Dr. Kevyn Dillard. Adair Huerta M.D. DR: MARY JOB#: [id number] CC:
[2016-04-19 00:16] VITALS: BP 114/70
[2016-04-19] MEDS: Morphine Sulfate 2mg/ml Inj IVP PRN ×5 (03:53→22:02)
[2016-04-19 04:17] VITALS: BP 125/72
[2016-04-19] MEDS: HydrALAZINE 50mg tab ORAL SCH ×2 (06:02→13:26)
[2016-04-19] MEDS: Lactulose 20gm/30ml UDC ORAL SCH ×3 (06:03→21:57)
[2016-04-19] MEDS: NovoLOG Insulin Flexpen SUBQ SCH ×4 (06:03→22:01)
[2016-04-19] MEDS: Thiamine 100mg tab ORAL SCH (08:05)
[2016-04-19] MEDS: Carvedilol 12.5mg tab ORAL SCH (08:06)
[2016-04-19] MEDS: Docusate 100mg cap ORAL SCH ×3 (08:08→17:35)
[2016-04-19] MEDS: Heparin 5000 units/ml inj SUBQ SCH ×3 (08:10→21:00)
[2016-04-19 08:13] VITALS: BP 122/77
[2016-04-19 08:25] LABS: EOSINOPHILS % (AUTO) 4.4 % (0.0-3.0); MEAN CORPUSCULAR HEMOGLOBIN 30.5 PG (27.0-31.0); MEAN CORPUSCULAR HGB CONC 31.5 G/DL (32.0-36.0); MEAN CORPUSCULAR VOLUME 97 FL (80-99); MEAN PLATELET VOLUME 6.9 FL (6.5-10.1); MONOCYTES % (AUTO) 12.2 % (1.0-10.0); NEUTROPHILS % (AUTO) 58.5 % (45.0-75.0); PLATELET COUNT 166 K/UL (150-450); RED CELL DISTRIBUTION WIDTH 17.9 % (11.6-14.8); WHITE BLOOD COUNT 4.7 K/UL (4.8-10.8)
[2016-04-19 08:41] LABS: CRP QUANT 13.3 mg/dL (< 0.5); PHOSPHORUS 4.1 mg/dL (2.5-4.8); URIC ACID 4.5 mg/dL (3.0-7.5)
[2016-04-19 08:42] LABS: A/G RATIO 0.7 (0.7-1.7); ABNORMAL PROTEIN BAND 1 Not Observed g/dL (Not Observed); ALPHA-1 GLOBULIN 0.4 g/dL (0.0-0.4); ALPHA-2 GLOBULIN 0.8 g/dL (0.4-1.0); BETA GLOBULIN 1.1 g/dL (0.7-1.3); GAMMA GLOBULIN 2.2 g/dL (0.4-1.8); GLOBULIN, TOTAL 4.6 g/dL (2.2-3.9); TOTAL PROTEIN 7.6 g/dL (6.0-8.5)
[2016-04-19 08:45] LABS: ALBUMIN/GLOBULIN RATIO 0.8 (1.0-2.7); CALCIUM 6.4 mg/dL (8.6-10.2); GLOMERULAR FILTRATION RATE 8.6 mL/min (>60); POTASSIUM 5.1 mEQ/L (3.4-4.9); TOTAL PROTEIN 6.6 g/dL (6.6-8.7)
[2016-04-19 09:07] LABS: APPEARANCE, BODY FLUID HAZY; BD FL VOLUME 33 mL
[2016-04-19 09:08] LABS: BD FL SOURCE ASCITES
--- NOTE | 2016-04-19 11:10 | Internal Med Progress Note ---
Subjective Date of Service: Apr 19, 2016 Physician Name Adair Alvarez Attending Physician Jackson Albright MD Current Medications Medications (Trade) Dose Ordered Sig/Ranjan Route PRN Reason Start Time Stop Time Status Last Admin Dose Admin Acetaminophen (Tylenol) 650 mg Q6H PRN ORAL Prn Headache/Temp > 101 04/17/16 16:15 05/17/16 16:14 Albuterol/ Ipratropium (DuoNeb 0.5-3(2.5)mg/3ml) 3 ml Q6H PRN HHN dyspnea 04/17/16 14:30 04/22/16 14:29 Amlodipine Besylate 10 mg 10 mg DAILY ORAL 04/18/16 09:00 05/18/16 08:59 04/19/16 08:07 Aspirin (ASA) 325 mg DAILY ORAL 04/17/16 17:00 05/17/16 16:59 04/19/16 08:07 Carvedilol (Coreg) 12.5 mg EVERY 12 HOURS ORAL 04/18/16 21:00 05/18/16 20:59 04/19/16 08:06 Clonidine HCl (Catapres) 0.1 mg Q4H PRN ORAL For High Blood Pressure 04/17/16 14:30 05/17/16 14:29 Dextrose (D10w) 1,000 ml @ 50 mls/hr Q20H IV 04/17/16 23:00 05/17/16 22:59 04/18/16 19:17 Dextrose (Dextrose 50%) STAT PRN IV Hypoglycemia 04/17/16 14:30 05/17/16 14:29 04/17/16 21:56 Docusate Sodium (Colace) 100 mg TID ORAL 04/17/16 21:00 05/17/16 20:59 04/17/16 21:29 Heparin Sodium (Porcine) (Heparin 5000 units/ml) 5,000 units EVERY 12 HOURS SUBQ 04/17/16 21:00 05/17/16 20:59 04/17/16 21:37 Hydralazine HCl (Apresoline) 50 mg EVERY 8 HOURS ORAL 04/17/16 22:00 05/17/16 21:59 04/19/16 06:02 Insulin Aspart (NovoLOG) BEFORE MEALS AND HS SUBQ 04/17/16 16:30 05/17/16 16:29 Lactulose (Cephulac) 20 gm Q8HR ORAL 04/17/16 17:00 05/17/16 16:59 04/19/16 06:03 Metoclopramide HCl (Reglan) 5 mg TIAC ORAL 04/17/16 17:00 05/17/16 16:59 04/19/16 06:02 Morphine Sulfate (Morphine Sulfate) 1 mg Q4H PRN IVP For Pain 04/17/16 14:30 04/24/16 14:29 04/19/16 09:02 Ondansetron HCl (Zofran) 4 mg Q6H PRN IVP Nausea & Vomiting 04/17/16 14:30 05/17/16 14:29 Pantoprazole (Protonix) 40 mg DAILY ORAL 04/18/16 09:00 05/18/16 08:59 04/19/16 08:07 Polyethylene Glycol (Miralax) 17 gm HSPRN PRN ORAL Constipation 04/17/16 14:30 05/17/16 14:29 Sevelamer Carbonate (Renvela) 1,600 mg TIAC ORAL 04/17/16 17:00 05/17/16 16:59 04/19/16 06:02 Thiamine HCl (Vitamin B1) 100 mg DAILY ORAL 04/18/16 09:00 05/18/16 08:59 04/19/16 08:05 Trazodone HCl (Desyrel) 100 mg BEDTIME ORAL 04/17/16 21:00 05/17/16 20:59 04/18/16 21:15 Zolpidem Tartrate (Ambien) 5 mg HSPRN PRN ORAL Insomnia 04/17/16 14:30 05/17/16 14:29 Allergies: Coded Allergies: No Known Allergies (Unverified , 09/20/15) ROS Limited/Unobtainable: No Constitutional: Reports: no symptoms HEENT: Reports: no symptoms Cardiovascular: Reports: no symptoms Respiratory: Reports: no symptoms Gastrointestinal/Abdominal: Reports: abdomen distended, abdominal pain Genitourinary: Reports: no symptoms Neurologic/Psychiatric: Reports: no symptoms Subjective 61 YO F admitted with abdominal distention and pain. Now ascites. Cover for Int Med-Dr Albright. S/P paracentesis 04/18/16. Objective Last Vital Signs Date Time Temp Pulse Resp B/P Pulse Ox O2 Delivery O2 Flow Rate FiO2 04/19/16 09:32 98.2 04/19/16 08:13 104 18 122/77 95 Nasal Cannula 2.0 04/19/16 07:45 21 General Appearance: WD/WN, no apparent distress, alert EENT: PERRL/EOMI, normal ENT inspection, TMs normal Neck: non-tender, normal alignment, supple Cardiovascular: normal peripheral pulses, normal rate, regular rhythm, no gallop/murmur, no JVD Respiratory/Chest: chest wall non-tender, lungs clear, normal breath sounds, no respiratory distress, no accessory muscle use Abdomen: decreased bowel sounds, distended, guarding, tender Extremities: normal range of motion Edema: moderate edema Neurologic: correctional nurse II-XII grossly normal Skin: normal pigmentation, warm/dry Laboratory Tests Test 04/18/16 14:15 04/19/16 06:35 Body Fluid Source Ascites Body Fluid Volume 33 mL Body Fluid Appearance Hazy Body Fluid RBC /CUMM Body Fluid Total Nucleated Cells /CUMM Body Fluid Total Protein Pending Body Fluid Comment White Blood Count 4.7 K/UL (4.8-10.8) L Red Blood Count 2.90 M/UL (4.20-5.40) L Hemoglobin 8.9 G/DL (12.0-16.0) L Hematocrit 28.1 % (37.0-47.0) L Mean Corpuscular Volume 97 FL (80-99) Mean Corpuscular Hemoglobin 30.5 PG (27.0-31.0) Mean Corpuscular Hemoglobin Concent 31.5 G/DL (32.0-36.0) L Red Cell Distribution Width 17.9 % (11.6-14.8) H Platelet Count 166 K/UL (150-450) Mean Platelet Volume 6.9 FL (6.5-10.1) Neutrophils (%) (Auto) 58.5 % (45.0-75.0) Lymphocytes (%) (Auto) 24.0 % (20.0-45.0) Monocytes (%) (Auto) 12.2 % (1.0-10.0) H Eosinophils (%) (Auto) 4.4 % (0.0-3.0) H Basophils (%) (Auto) 1.0 % (0.0-2.0) Sodium Level 137 mEQ/L (135-145) Potassium Level 5.1 mEQ/L (3.4-4.9) H Chloride Level 92 mEQ/L (98-107) L Carbon Dioxide Level 31 mEQ/L (20-30) H Anion Gap 14 (5-15) Blood Urea Nitrogen 30 mg/dL (7-23) H Creatinine 6.0 mg/dL (0.5-0.9) H Estimat Glomerular Filtration Rate 8.6 mL/min (>60) Glucose Level 93 mg/dL (74-106) Uric Acid 4.5 mg/dL (3.0-7.5) Calcium Level 6.4 mg/dL (8.6-10.2) L Phosphorus Level 4.1 mg/dL (2.5-4.8) Magnesium Level 2.0 mg/dL (1.7-2.5) Total Bilirubin 0.3 mg/dL (0.0-1.2) Gamma Glutamyl Transpeptidase 33 U/L (5-36) Aspartate Amino Transf (AST/SGOT) 13 U/L (5-40) Alanine Aminotransferase (ALT/SGPT) 6 U/L (3-33) Alkaline Phosphatase 116 U/L (35-104) H Ammonia 166 umol/L (11-51) H Total Creatine Kinase 29 U/L (26-140) C-Reactive Protein, Quantitative 13.3 mg/dL (< 0.5) H Total Protein 6.6 g/dL (6.6-8.7) Albumin 3.0 g/dL (3.5-5.2) L Globulin 3.6 g/dL Albumin/Globulin Ratio 0.8 (1.0-2.7) L Microbiology Date/Time Source Procedure Growth Status 04/17/16 10:55 Blood Blood Culture - Preliminary NO GROWTH AFTER 24 HOURS Resulted 04/17/16 10:45 Blood Blood Culture - Preliminary NO GROWTH AFTER 24 HOURS Resulted 04/17/16 11:50 Stool Received Intake and Output 04/18/16 04/19/16 19:00 07:00 Intake Total 600 ml 600 ml Output Total 3000 ml Balance -2400 ml 600 ml Intake Oral 200 ml IV Total 600 ml 400 ml Hemodialysis UF 3000 ml # Bowel Movements 1 Assessment/Plan Problem List: (1) Cirrhosis of liver (2) Abnormal LFTs Assessment & Plan: See GI note-Dr Reyes. Await liver studies-see GI note. (3) Abdominal pain (4) Ascites Assessment & Plan: S/P paracentesis (3.6L)-await results. See GI note. (5) ESRD (end stage renal disease) Assessment & Plan: S/P hemodialysis 04/18/16. See nephrology note. (6) HTN (hypertension) Assessment & Plan: Cont coreg and norvasc. (7) CHF (congestive heart failure) Assessment & Plan: see cardiology note. Status: not improved ADAIR ALVAREZ Apr 19, 2016 11:10
--- NOTE | 2016-04-19 11:55 | GI Progress Note ---
Assessment/Plan Problems: (1) GERD (gastroesophageal reflux disease) ICD Codes: K21.9 - Gastro-esophageal reflux disease without esophagitis SNOMED: 636051955 (2) Ileus ICD Codes: K56.7 - Ileus, unspecified SNOMED: 843902666 (3) Anemia ICD Codes: D64.9 - Anemia, unspecified SNOMED: 628326942 (4) ESRD (end stage renal disease) ICD Codes: N18.6 - End stage renal disease SNOMED: 43168212 (5) Ascites ICD Codes: R18.8 - Other ascites SNOMED: 264634167 Qualifiers: Qualified Codes: R18.8 - Other ascites (6) Abnormal LFTs ICD Codes: R79.89 - Other specified abnormal findings of blood chemistry SNOMED: 689375349 (7) H/O ETOH abuse ICD Codes: Z87.898 - Personal history of other specified conditions SNOMED: 127052484 Status: progressing Status Narrative Discussed with Dr. Reyes. Assessment/Plan CA19-9 >> 78.93 CEA >> 2.1 APCT reviewed >> Marked ascites resulting in abdominal pelvic distention, etiology indeterminate, see full report. Hep panel B positive OB stool uncollected GGTP >> WNL s/p paracentesis >> 3.6 L yield >> will calculate SAAG to determine source of ascites fu tumor markers; AFP, CA 125-5 cont lactulose renal diet bowel regime ppi fu labs Subjective Gastrointestinal/Abdominal: Reports: abdomen distended, abdominal pain Subjective improved Objective Last 24 Hour Vital Signs Date Time Temp Pulse Resp B/P Pulse Ox O2 Delivery O2 Flow Rate FiO2 04/19/16 09:32 98.2 04/19/16 08:13 98.2 104 18 122/77 95 Nasal Cannula 2.0 04/19/16 08:07 104 122/77 04/19/16 08:06 104 122/77 04/19/16 07:59 95 04/19/16 07:45 95 Room Air 21 04/19/16 07:45 102 18 Room Air 21 04/19/16 07:45 Room Air 2.0 21 04/19/16 06:02 125/72 04/19/16 04:17 98.8 99 125/72 98 Nasal Cannula 2.0 04/19/16 04:00 94 04/19/16 00:16 98.7 103 19 114/70 96 Nasal Cannula 2.0 04/19/16 00:00 103 04/18/16 21:16 124/76 04/18/16 21:15 96 124/76 04/18/16 20:00 99 04/18/16 20:00 98.6 96 21 124/76 96 Room Air 04/18/16 19:38 Room Air 04/18/16 19:37 98 18 Room Air 04/18/16 19:37 94 Room Air 04/18/16 16:00 94 04/18/16 16:00 99.0 97 20 116/72 98 Room Air 04/18/16 14:00 142/80 04/18/16 11:54 110 142/80 Intake and Output 04/18/16 04/19/16 19:00 07:00 Intake Total 600 ml 600 ml Output Total 3000 ml Balance -2400 ml 600 ml Intake Oral 200 ml IV Total 600 ml 400 ml Hemodialysis UF 3000 ml # Bowel Movements 1 Laboratory Tests Test 04/18/16 14:15 04/19/16 06:35 Body Fluid Source Ascites Body Fluid Volume 33 mL Body Fluid Appearance Hazy Body Fluid RBC /CUMM Body Fluid Total Nucleated Cells /CUMM Body Fluid Total Protein Pending Body Fluid Comment White Blood Count 4.7 K/UL (4.8-10.8) L Red Blood Count 2.90 M/UL (4.20-5.40) L Hemoglobin 8.9 G/DL (12.0-16.0) L Hematocrit 28.1 % (37.0-47.0) L Mean Corpuscular Volume 97 FL (80-99) Mean Corpuscular Hemoglobin 30.5 PG (27.0-31.0) Mean Corpuscular Hemoglobin Concent 31.5 G/DL (32.0-36.0) L Red Cell Distribution Width 17.9 % (11.6-14.8) H Platelet Count 166 K/UL (150-450) Mean Platelet Volume 6.9 FL (6.5-10.1) Neutrophils (%) (Auto) 58.5 % (45.0-75.0) Lymphocytes (%) (Auto) 24.0 % (20.0-45.0) Monocytes (%) (Auto) 12.2 % (1.0-10.0) H Eosinophils (%) (Auto) 4.4 % (0.0-3.0) H Basophils (%) (Auto) 1.0 % (0.0-2.0) Sodium Level 137 mEQ/L (135-145) Potassium Level 5.1 mEQ/L (3.4-4.9) H Chloride Level 92 mEQ/L (98-107) L Carbon Dioxide Level 31 mEQ/L (20-30) H Anion Gap 14 (5-15) Blood Urea Nitrogen 30 mg/dL (7-23) H Creatinine 6.0 mg/dL (0.5-0.9) H Estimat Glomerular Filtration Rate 8.6 mL/min (>60) Glucose Level 93 mg/dL (74-106) Uric Acid 4.5 mg/dL (3.0-7.5) Calcium Level 6.4 mg/dL (8.6-10.2) L Phosphorus Level 4.1 mg/dL (2.5-4.8) Magnesium Level 2.0 mg/dL (1.7-2.5) Total Bilirubin 0.3 mg/dL (0.0-1.2) Gamma Glutamyl Transpeptidase 33 U/L (5-36) Aspartate Amino Transf (AST/SGOT) 13 U/L (5-40) Alanine Aminotransferase (ALT/SGPT) 6 U/L (3-33) Alkaline Phosphatase 116 U/L (35-104) H Ammonia 166 umol/L (11-51) H Total Creatine Kinase 29 U/L (26-140) C-Reactive Protein, Quantitative 13.3 mg/dL (< 0.5) H Total Protein 6.6 g/dL (6.6-8.7) Albumin 3.0 g/dL (3.5-5.2) L Globulin 3.6 g/dL Albumin/Globulin Ratio 0.8 (1.0-2.7) L Height (Feet): 5 Height (Inches): 5.00 Weight (Pounds): 140 General Appearance: no apparent distress, alert Cardiovascular: normal rate Respiratory/Chest: normal breath sounds, no respiratory distress Abdominal Exam: normal bowel sounds, non tender, soft, ascites Objective Procedure: CT Abdomen Pelvis w/Contrast Indications: Abdominal pain and distention Impression: Marked ascites resulting in abdominal pelvic distention, etiology indeterminate Both dilated and nondilated small bowel, favor ileus over obstruction. Pathologic mural thickening of one or more small bowel loops not excludable. Collapsed colon and rectum. Pathologic mural thickening not excludable. Enlarged, heterogeneous liver compatible with chronic hepatocellular disease. 12 mm enhancing nodule described is nonspecific, may be benign or malignant Gallbladder wall thickening most likely secondary to presence of ascites. Cholecystitis not excludable Bilateral end-stage renal disease Escobedo catheter Diffuse body wall edema compatible with anasarca Pleural effusions, nonspecific, may be secondary to presence of ascites Pericardial effusion, nonspecific Anasarca Pulmonary bibasal subsegmental atelectasis Cardiomegaly Diffuse skeletal sclerosis may represent metastatic neoplasm or metabolic abnormality Degenerative spondylosis Autumn Lutz N.P. Apr 19, 2016 11:55
[2016-04-19 12:00] VITALS: BP 113/70
[2016-04-19 13:15] LABS: CA 125 80.4 U/mL (0.0-38.1)
[2016-04-19] MEDS: Rifaximin 550mg tab ORAL SCH ×2 (13:29→21:57)
--- NOTE | 2016-04-19 13:51 | General Progress Note ---
Assessment/Plan Status: stable Assessment/Plan status: ESRD- dialysed 04/18 HyperKalemia- Ascitis- DM HTN At Fib Anemia Plan: optimize cardiac and pulmonary status- BP meds adjustment- 2 D Echo pending- Monitor lytes and renal parameters- HD in am Per consultants Subjective ROS Limited/Unobtainable: No Constitutional: Reports: malaise Allergies: Coded Allergies: No Known Allergies (Unverified , 09/20/15) Objective Last 24 Hour Vital Signs Date Time Temp Pulse Resp B/P Pulse Ox O2 Delivery O2 Flow Rate FiO2 04/19/16 13:26 113/70 04/19/16 12:00 98.1 110 18 113/70 98 Nasal Cannula 2.0 04/19/16 09:32 98.2 04/19/16 08:13 98.2 104 18 122/77 95 Nasal Cannula 2.0 04/19/16 08:07 104 122/77 04/19/16 08:06 104 122/77 04/19/16 07:59 95 04/19/16 07:45 95 Room Air 21 04/19/16 07:45 102 18 Room Air 21 04/19/16 07:45 Room Air 2.0 21 04/19/16 06:02 125/72 04/19/16 04:17 98.8 99 125/72 98 Nasal Cannula 2.0 04/19/16 04:00 94 04/19/16 00:16 98.7 103 19 114/70 96 Nasal Cannula 2.0 04/19/16 00:00 103 04/18/16 21:16 124/76 04/18/16 21:15 96 124/76 04/18/16 20:00 99 04/18/16 20:00 98.6 96 21 124/76 96 Room Air 04/18/16 19:38 Room Air 04/18/16 19:37 98 18 Room Air 04/18/16 19:37 94 Room Air 04/18/16 16:00 94 04/18/16 16:00 99.0 97 20 116/72 98 Room Air 04/18/16 14:00 142/80 Intake and Output 04/18/16 04/19/16 19:00 07:00 Intake Total 600 ml 600 ml Output Total 3000 ml Balance -2400 ml 600 ml Intake Oral 200 ml IV Total 600 ml 400 ml Hemodialysis UF 3000 ml # Bowel Movements 1 Laboratory Tests 04/18/16 14:15: Body Fluid Source Ascites, Body Fluid Volume 33, Body Fluid Appearance Hazy, Body Fluid RBC , Body Fluid Total Nucleated Cells , Body Fluid Total Protein [ Pending], Body Fluid Comment 04/19/16 06:35: White Blood Count 4.7L, Red Blood Count 2.90L, Hemoglobin 8.9L, Hematocrit 28.1L , Mean Corpuscular Volume 97, Mean Corpuscular Hemoglobin 30.5, Mean Corpuscular Hemoglobin Concent 31.5L, Red Cell Distribution Width 17.9H, Platelet Count 166, Mean Platelet Volume 6.9, Neutrophils (%) (Auto) 58.5, Lymphocytes (%) (Auto) 24.0, Monocytes (%) (Auto) 12.2H, Eosinophils (%) (Auto) 4.4H, Basophils (%) (Auto) 1.0, Sodium Level 137, Potassium Level 5.1H, Chloride Level 92L, Carbon Dioxide Level 31H, Anion Gap 14, Blood Urea Nitrogen 30H, Creatinine 6.0H, Estimat Glomerular Filtration Rate 8.6, Glucose Level 93, Uric Acid 4.5, Calcium Level 6.4L, Phosphorus Level 4.1, Magnesium Level 2.0, Total Bilirubin 0.3, Gamma Glutamyl Transpeptidase 33, Aspartate Amino Transf ( AST/SGOT) 13, Alanine Aminotransferase (ALT/SGPT) 6, Alkaline Phosphatase 116H, Ammonia 166H, Total Creatine Kinase 29, C-Reactive Protein, Quantitative 13.3H, Total Protein 6.6, Albumin 3.0L, Globulin 3.6, Albumin/Globulin Ratio 0.8L Height (Feet): 5 Height (Inches): 5.00 Weight (Pounds): 140 General Appearance: no apparent distress Cardiovascular: tachycardia Respiratory/Chest: decreased breath sounds Abdomen: soft, distended Objective other PE not changed PEPE MONTERROSO Apr 19, 2016 13:51
[2016-04-19] MEDS ORDERED: HydrALAZINE 25mg tab ORAL SCH (14:00)
[2016-04-19] MEDS: Dextrose 10% 1,000 ML IV SCH (14:31)
--- NOTE | 2016-04-19 15:05 | Pulmonology Progress Note ---
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 Subjective ROS Limited/Unobtainable: No Interval Events: feeling better, s/p paracentesis, 3.5 liter removed Allergies: Coded Allergies: No Known Allergies (Unverified , 09/20/15) Objective Last 24 Hour Vital Signs Date Time Temp Pulse Resp B/P Pulse Ox O2 Delivery O2 Flow Rate FiO2 04/19/16 13:56 98.1 04/19/16 13:26 113/70 04/19/16 12:00 98.1 110 18 113/70 98 Nasal Cannula 2.0 04/19/16 08:13 98.2 104 18 122/77 95 Nasal Cannula 2.0 04/19/16 08:07 104 122/77 04/19/16 08:06 104 122/77 04/19/16 07:59 95 04/19/16 07:45 95 Room Air 21 04/19/16 07:45 102 18 Room Air 21 04/19/16 07:45 Room Air 2.0 21 04/19/16 06:02 125/72 04/19/16 04:17 98.8 99 125/72 98 Nasal Cannula 2.0 04/19/16 04:00 94 04/19/16 00:16 98.7 103 19 114/70 96 Nasal Cannula 2.0 04/19/16 00:00 103 04/18/16 21:16 124/76 04/18/16 21:15 96 124/76 04/18/16 20:00 99 04/18/16 20:00 98.6 96 21 124/76 96 Room Air 04/18/16 19:38 Room Air 04/18/16 19:37 98 18 Room Air 04/18/16 19:37 94 Room Air 04/18/16 16:00 94 04/18/16 16:00 99.0 97 20 116/72 98 Room Air Intake and Output 04/18/16 04/19/16 19:00 07:00 Intake Total 600 ml 600 ml Output Total 3000 ml Balance -2400 ml 600 ml Intake Oral 200 ml IV Total 600 ml 400 ml Hemodialysis UF 3000 ml # Bowel Movements 1 Objective General Appearance: WD/WN HEENT: normocephalic, atraumatic, PERRL Respiratory/Chest: lungs clear Breasts: no masses Cardiovascular: normal peripheral pulses Abdomen: normal bowel sounds, soft, non tender Genitourinary: normal external genitalia Extremities: no clubbing Neurologic/Psychiatric: 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 Resulted Laboratory Tests 04/19/16 06:35: White Blood Count 4.7L, Red Blood Count 2.90L, Hemoglobin 8.9L, Hematocrit 28.1L , Mean Corpuscular Volume 97, Mean Corpuscular Hemoglobin 30.5, Mean Corpuscular Hemoglobin Concent 31.5L, Red Cell Distribution Width 17.9H, Platelet Count 166, Mean Platelet Volume 6.9, Neutrophils (%) (Auto) 58.5, Lymphocytes (%) (Auto) 24.0, Monocytes (%) (Auto) 12.2H, Eosinophils (%) (Auto) 4.4H, Basophils (%) (Auto) 1.0, Sodium Level 137, Potassium Level 5.1H, Chloride Level 92L, Carbon Dioxide Level 31H, Anion Gap 14, Blood Urea Nitrogen 30H, Creatinine 6.0H, Estimat Glomerular Filtration Rate 8.6, Glucose Level 93, Uric Acid 4.5, Calcium Level 6.4L, Phosphorus Level 4.1, Magnesium Level 2.0, Total Bilirubin 0.3, Gamma Glutamyl Transpeptidase 33, Aspartate Amino Transf ( AST/SGOT) 13, Alanine Aminotransferase (ALT/SGPT) 6, Alkaline Phosphatase 116H, Ammonia 166H, Total Creatine Kinase 29, C-Reactive Protein, Quantitative 13.3H, Total Protein 6.6, Albumin 3.0L, Globulin 3.6, Albumin/Globulin Ratio 0.8L Current Medications Medications (Trade) Dose Ordered Sig/Ranjan Route PRN Reason Start Time Stop Time Status Last Admin Dose Admin Acetaminophen (Tylenol) 650 mg Q6H PRN ORAL Prn Headache/Temp > 101 04/17/16 16:15 05/17/16 16:14 Albuterol/ Ipratropium (DuoNeb 0.5-3(2.5)mg/3ml) 3 ml Q6H PRN HHN dyspnea 04/17/16 14:30 04/22/16 14:29 Amlodipine Besylate 10 mg 10 mg DAILY ORAL 04/18/16 09:00 05/18/16 08:59 04/19/16 08:07 Aspirin (ASA) 325 mg DAILY ORAL 04/17/16 17:00 05/17/16 16:59 04/19/16 08:07 Carvedilol (Coreg) 25 mg EVERY 12 HOURS ORAL 04/19/16 21:00 05/19/16 20:59 Clonidine HCl (Catapres) 0.1 mg Q4H PRN ORAL For High Blood Pressure 04/17/16 14:30 05/17/16 14:29 Dextrose (D10w) 1,000 ml @ 50 mls/hr Q20H IV 04/17/16 23:00 05/17/16 22:59 04/19/16 14:31 Dextrose (Dextrose 50%) STAT PRN IV Hypoglycemia 04/17/16 14:30 05/17/16 14:29 04/17/16 21:56 Docusate Sodium (Colace) 100 mg TID ORAL 04/17/16 21:00 05/17/16 20:59 04/19/16 12:35 Heparin Sodium (Porcine) (Heparin 5000 units/ml) 5,000 units EVERY 12 HOURS SUBQ 04/17/16 21:00 05/17/16 20:59 04/17/16 21:37 Hydralazine HCl (Apresoline) 25 mg EVERY 8 HOURS ORAL 04/19/16 14:00 05/19/16 13:59 Insulin Aspart (NovoLOG) BEFORE MEALS AND HS SUBQ 04/17/16 16:30 05/17/16 16:29 Lactulose (Cephulac) 20 gm Q8HR ORAL 04/17/16 17:00 05/17/16 16:59 04/19/16 13:26 Metoclopramide HCl (Reglan) 5 mg TIAC ORAL 04/17/16 17:00 05/17/16 16:59 04/19/16 12:35 Morphine Sulfate (Morphine Sulfate) 1 mg Q4H PRN IVP For Pain 04/17/16 14:30 04/24/16 14:29 04/19/16 13:26 Ondansetron HCl (Zofran) 4 mg Q6H PRN IVP Nausea & Vomiting 04/17/16 14:30 05/17/16 14:29 Pantoprazole (Protonix) 40 mg DAILY ORAL 04/18/16 09:00 05/18/16 08:59 04/19/16 08:07 Polyethylene Glycol (Miralax) 17 gm HSPRN PRN ORAL Constipation 04/17/16 14:30 05/17/16 14:29 Rifaximin (Xifaxan) 550 mg EVERY 12 HOURS ORAL 04/19/16 14:00 04/26/16 13:59 04/19/16 13:29 Sevelamer Carbonate (Renvela) 1,600 mg TIAC ORAL 04/17/16 17:00 05/17/16 16:59 04/19/16 12:35 Thiamine HCl (Vitamin B1) 100 mg DAILY ORAL 04/18/16 09:00 05/18/16 08:59 04/19/16 08:05 Trazodone HCl (Desyrel) 100 mg BEDTIME ORAL 04/17/16 21:00 05/17/16 20:59 04/18/16 21:15 Zolpidem Tartrate (Ambien) 5 mg HSPRN PRN ORAL Insomnia 04/17/16 14:30 05/17/16 14:29 ANN MARIE OSULLIVAN Apr 19, 2016 15:05
[2016-04-19 16:00] VITALS: BP 112/69
--- NOTE | 2016-04-19 18:11 | Cardiology Progress Note ---
Assessment/Plan Assessment/Plan 1. Dyspnea, secondary ascites as well as diastolic dysfunction. 2. Valvular heart disease with aortic and tricuspid regurgitation. 3. Liver disease history. 4. End-stage renal disease. 5. Significant weight loss. 6. Anemia. 7. Constipation. 8. diastolic dysfunction / failure 9. pericardial effusion 10. pulm htn tele sinus echo note ef is fine s/p 3.5 liter paracentesis gi evla elevated tumor marker spep neg dialysis / uf hs more room dc hydralazine to have room for more fluid removal with dialysis Subjective Cardiovascular: Denies: chest pain, lightheadedness Respiratory: Reports: shortness of breath Gastrointestinal/Abdominal: Reports: abdominal pain Genitourinary: Denies: burning Objective Last 24 Hour Vital Signs Date Time Temp Pulse Resp B/P Pulse Ox O2 Delivery O2 Flow Rate FiO2 04/19/16 16:00 98.1 93 21 112/69 94 Room Air 04/19/16 13:56 98.1 04/19/16 13:26 113/70 04/19/16 12:00 98.1 110 18 113/70 98 Nasal Cannula 2.0 04/19/16 08:13 98.2 104 18 122/77 95 Nasal Cannula 2.0 04/19/16 08:07 104 122/77 04/19/16 08:06 104 122/77 04/19/16 07:59 95 04/19/16 07:45 95 Room Air 21 04/19/16 07:45 102 18 Room Air 21 04/19/16 07:45 Room Air 2.0 21 04/19/16 06:02 125/72 04/19/16 04:17 98.8 99 125/72 98 Nasal Cannula 2.0 04/19/16 04:00 94 04/19/16 00:16 98.7 103 19 114/70 96 Nasal Cannula 2.0 04/19/16 00:00 103 04/18/16 21:16 124/76 04/18/16 21:15 96 124/76 04/18/16 20:00 99 04/18/16 20:00 98.6 96 21 124/76 96 Room Air 04/18/16 19:38 Room Air 04/18/16 19:37 98 18 Room Air 04/18/16 19:37 94 Room Air General Appearance: no apparent distress, alert Neck: supple Cardiovascular: normal rate, regular rhythm Respiratory/Chest: decreased breath sounds Abdomen: normal bowel sounds, non tender, soft Extremities: no swelling Intake and Output 04/18/16 04/19/16 19:00 07:00 Intake Total 600 ml 600 ml Output Total 3000 ml Balance -2400 ml 600 ml Intake Oral 200 ml IV Total 600 ml 400 ml Hemodialysis UF 3000 ml # Bowel Movements 1 Laboratory Tests Test 04/19/16 06:35 White Blood Count 4.7 K/UL (4.8-10.8) L Red Blood Count 2.90 M/UL (4.20-5.40) L Hemoglobin 8.9 G/DL (12.0-16.0) L Hematocrit 28.1 % (37.0-47.0) L Mean Corpuscular Volume 97 FL (80-99) Mean Corpuscular Hemoglobin 30.5 PG (27.0-31.0) Mean Corpuscular Hemoglobin Concent 31.5 G/DL (32.0-36.0) L Red Cell Distribution Width 17.9 % (11.6-14.8) H Platelet Count 166 K/UL (150-450) Mean Platelet Volume 6.9 FL (6.5-10.1) Neutrophils (%) (Auto) 58.5 % (45.0-75.0) Lymphocytes (%) (Auto) 24.0 % (20.0-45.0) Monocytes (%) (Auto) 12.2 % (1.0-10.0) H Eosinophils (%) (Auto) 4.4 % (0.0-3.0) H Basophils (%) (Auto) 1.0 % (0.0-2.0) Sodium Level 137 mEQ/L (135-145) Potassium Level 5.1 mEQ/L (3.4-4.9) H Chloride Level 92 mEQ/L (98-107) L Carbon Dioxide Level 31 mEQ/L (20-30) H Anion Gap 14 (5-15) Blood Urea Nitrogen 30 mg/dL (7-23) H Creatinine 6.0 mg/dL (0.5-0.9) H Estimat Glomerular Filtration Rate 8.6 mL/min (>60) Glucose Level 93 mg/dL (74-106) Uric Acid 4.5 mg/dL (3.0-7.5) Calcium Level 6.4 mg/dL (8.6-10.2) L Phosphorus Level 4.1 mg/dL (2.5-4.8) Magnesium Level 2.0 mg/dL (1.7-2.5) Total Bilirubin 0.3 mg/dL (0.0-1.2) Gamma Glutamyl Transpeptidase 33 U/L (5-36) Aspartate Amino Transf (AST/SGOT) 13 U/L (5-40) Alanine Aminotransferase (ALT/SGPT) 6 U/L (3-33) Alkaline Phosphatase 116 U/L (35-104) H Ammonia 166 umol/L (11-51) H Total Creatine Kinase 29 U/L (26-140) C-Reactive Protein, Quantitative 13.3 mg/dL (< 0.5) H Total Protein 6.6 g/dL (6.6-8.7) Albumin 3.0 g/dL (3.5-5.2) L Globulin 3.6 g/dL Albumin/Globulin Ratio 0.8 (1.0-2.7) L Microbiology Date/Time Source Procedure Growth Status 04/17/16 10:55 Blood Blood Culture - Preliminary NO GROWTH AFTER 24 HOURS Resulted 04/17/16 10:45 Blood Blood Culture - Preliminary NO GROWTH AFTER 24 HOURS Resulted 04/17/16 11:50 Stool Stool Culture - Preliminary NORMAL FECAL KEN. Resulted BETTIE URBANO Apr 19, 2016 18:11
[2016-04-19 20:00] VITALS: BP 133/76
[2016-04-19] MEDS ORDERED: Carvedilol 25mg Tab ORAL SCH (21:00)
[2016-04-19] MEDS: TraZODone 100mg tab ORAL SCH (21:58)
--- NOTE | 2016-04-19 23:36 | Cardiology Report ---
APPROVED REPORT EKG Measurement Heart [id number] Sinus tachycardia Low voltage QRS Cannot rule out Anterior infarct, age undetermined Abnormal ECG
[2016-04-20 00:36] VITALS: BP 136/82
[2016-04-20] MEDS: Morphine Sulfate 2mg/ml Inj IVP PRN ×3 (02:53→20:33)
[2016-04-20] MEDS: Dextrose 10% 1,000 ML IV SCH ×2 (03:23→23:52)
[2016-04-20 03:57] VITALS: BP 122/81
[2016-04-20] MEDS: Lactulose 20gm/30ml UDC ORAL SCH ×3 (06:10→21:10)
[2016-04-20] MEDS: NovoLOG Insulin Flexpen SUBQ SCH ×4 (06:11→21:13)
[2016-04-20] MEDS: Heparin 5000 units/ml inj SUBQ SCH ×2 (08:30→20:56)
[2016-04-20] MEDS ORDERED: DuoNeb 0.5-3(2.5)mg/3ml neb HHN PRN (08:30)
[2016-04-20] MEDS: Docusate 100mg cap ORAL SCH ×3 (08:32→18:00)
[2016-04-20] MEDS: Carvedilol 25mg Tab ORAL SCH ×2 (08:32→21:10)
[2016-04-20] MEDS: Rifaximin 550mg tab ORAL SCH ×2 (08:33→21:09)
[2016-04-20] MEDS: Thiamine 100mg tab ORAL SCH (08:33)
--- NOTE | 2016-04-20 08:43 | Cardiology Report ---
APPROVED REPORT EXAM: Two-dimensional and M-mode echocardiogram with Doppler and color Doppler. INDICATION Congestive Heart Failure M-Mode DIMENSIONS IVSd1.1 (0.7-1.1cm)Left Atrium (MM)4.2 (1.6-4.0cm) LVDd3.8 (3.5-5.6cm)Aortic Root3.3 (2.0-3.7cm) PWd2.8 (0.7-1.1cm)Aortic Cusp Exc.2.1 (1.5-2.0cm) LVDs2.8 (2.5-4.0cm) Normal left ventricular chamber size, systolic function and wall motion. Left ventricular ejection fraction estimated to be 70 %. Significant left ventricular hypertrophy. Circumferential small to moderate pericardial effusion. Moderate bi-atrial enlargement. Right ventricular chamber size is within normal limits. Focal aortic valve sclerosis with adequate cusp excursion. Thickened mitral valve leaflets with normal excursion. Mitral annulus and aortic root calcification. Pulmonic valve not well visualized. Normal tricuspid valve structure. IVC dilated at 2.3 cm with slight physiologic collapse suggestive of mildly increased RA pressure. A color flow and spectral Doppler study was performed and revealed: Mild aortic regurgitation. Mild mitral regurgitation. Mitral diastolic velocities suggest reduced left ventricular relaxation c/w mild LV diastolic dysfunction (Grade I ). Moderate tricuspid regurgitation. Tricuspid systolic velocities suggests peak right ventricular systolic pressure of 60 mmHg, consistent with severe pulmonary hypertension. No respiratory variation more than 25% across MV. No respiratory variation more than 50% across TV.
[2016-04-20 08:58] VITALS: BP 133/86
--- NOTE | 2016-04-20 10:12 | General Progress Note ---
Assessment/Plan Status: stable Assessment/Plan status: ESRD- last dialysed 04/18 HyperKalemia- Ascitis- DM HTN At Fib Anemia Plan: optimize cardiac and pulmonary status- BP meds adjustment- 2 D Echo : Left ventricular ejection fraction estimated to be 70 %. Monitor lytes and renal parameters- HD today Per consultants Subjective ROS Limited/Unobtainable: No Constitutional: Reports: malaise Allergies: Coded Allergies: No Known Allergies (Unverified , 09/20/15) Objective Last 24 Hour Vital Signs Date Time Temp Pulse Resp B/P Pulse Ox O2 Delivery O2 Flow Rate FiO2 04/20/16 08:58 97.7 88 20 133/86 97 Room Air 04/20/16 07:35 93 20 Room Air 21 04/20/16 03:57 97.0 87 18 122/81 93 Room Air 04/20/16 00:36 98.4 98 19 136/82 95 Room Air 04/20/16 00:00 96 04/19/16 21:58 91 133/76 04/19/16 21:29 91 20 Room Air 21 04/19/16 20:00 97.9 93 20 133/76 95 Room Air 04/19/16 20:00 95 04/19/16 16:00 98.1 93 21 112/69 94 Room Air 04/19/16 16:00 95 04/19/16 13:56 98.1 04/19/16 13:26 113/70 04/19/16 12:00 98.1 110 18 113/70 98 Nasal Cannula 2.0 Intake and Output 04/19/16 04/20/16 19:00 07:00 Intake Total 865 ml 810 ml Balance 865 ml 810 ml Intake Oral 240 ml 380 ml IV Total 625 ml 430 ml # Bowel Movements 1 3 Height (Feet): 5 Height (Inches): 5.00 Weight (Pounds): 140 General Appearance: no apparent distress Cardiovascular: normal rate Respiratory/Chest: decreased breath sounds Abdomen: soft, other - ascitis Objective other PE not changed PEPE MONTERROSO Apr 20, 2016 10:12
[2016-04-20 10:31] LABS: BASOPHILS % (AUTO) 1.6 % (0.0-2.0); EOSINOPHILS % (AUTO) 4.9 % (0.0-3.0); LYMPHOCYTES % (AUTO) 17.5 % (20.0-45.0); MEAN CORPUSCULAR HEMOGLOBIN 30.4 PG (27.0-31.0); MEAN CORPUSCULAR HGB CONC 31.5 G/DL (32.0-36.0); MEAN CORPUSCULAR VOLUME 96 FL (80-99); MEAN PLATELET VOLUME 5.9 FL (6.5-10.1); MONOCYTES % (AUTO) 11.6 % (1.0-10.0); NEUTROPHILS % (AUTO) 64.3 % (45.0-75.0); PLATELET COUNT 178 K/UL (150-450); RED BLOOD COUNT 3.25 M/UL (4.20-5.40); RED CELL DISTRIBUTION WIDTH 17.2 % (11.6-14.8); WHITE BLOOD COUNT 4.9 K/UL (4.8-10.8)
--- NOTE | 2016-04-20 10:39 | GI Progress Note ---
Assessment/Plan Problems: (1) GERD (gastroesophageal reflux disease) ICD Codes: K21.9 - Gastro-esophageal reflux disease without esophagitis SNOMED: 941834610 (2) Ileus ICD Codes: K56.7 - Ileus, unspecified SNOMED: 221378820 (3) Anemia ICD Codes: D64.9 - Anemia, unspecified SNOMED: 314982461 (4) ESRD (end stage renal disease) ICD Codes: N18.6 - End stage renal disease SNOMED: 23106186 (5) Ascites ICD Codes: R18.8 - Other ascites SNOMED: 491239195 Qualifiers: Qualified Codes: R18.8 - Other ascites (6) Abnormal LFTs ICD Codes: R79.89 - Other specified abnormal findings of blood chemistry SNOMED: 516172840 (7) H/O ETOH abuse ICD Codes: Z87.898 - Personal history of other specified conditions SNOMED: 784354587 Status: stable, progressing Status Narrative Discussed with Dr. Reyes. Assessment/Plan CA19-9 >> 78.93 CEA >> 2.1 APCT reviewed >> Marked ascites resulting in abdominal pelvic distention, etiology indeterminate, see full report. Hep panel B positive OB stool uncollected GGTP >> WNL s/p paracentesis >> 3.6 L yield >> will calculate SAAG to determine source of ascites EGD scheduled for tomorrow to evaluate for EV - NPO @ [facility]. fu tumor markers; AFP, CA 125-5 elevated ammonia >> cont lactulose renal diet bowel regime ppi fu labs Subjective Subjective improved diarrhea (on lactulose) Objective Last 24 Hour Vital Signs Date Time Temp Pulse Resp B/P Pulse Ox O2 Delivery O2 Flow Rate FiO2 04/20/16 08:58 97.7 88 20 133/86 97 Room Air 04/20/16 07:35 93 20 Room Air 21 04/20/16 03:57 97.0 87 18 122/81 93 Room Air 04/20/16 00:36 98.4 98 19 136/82 95 Room Air 04/20/16 00:00 96 04/19/16 21:58 91 133/76 04/19/16 21:29 91 20 Room Air 21 04/19/16 20:00 97.9 93 20 133/76 95 Room Air 04/19/16 20:00 95 04/19/16 16:00 98.1 93 21 112/69 94 Room Air 04/19/16 16:00 95 04/19/16 13:56 98.1 04/19/16 13:26 113/70 04/19/16 12:00 98.1 110 18 113/70 98 Nasal Cannula 2.0 Intake and Output 04/19/16 04/20/16 19:00 07:00 Intake Total 865 ml 860 ml Balance 865 ml 860 ml Intake Oral 240 ml 380 ml IV Total 625 ml 480 ml # Bowel Movements 1 3 Laboratory Tests Test 04/20/16 09:50 White Blood Count 4.9 K/UL (4.8-10.8) Red Blood Count 3.25 M/UL (4.20-5.40) L Hemoglobin 9.9 G/DL (12.0-16.0) L Hematocrit 31.3 % (37.0-47.0) L Mean Corpuscular Volume 96 FL (80-99) Mean Corpuscular Hemoglobin 30.4 PG (27.0-31.0) Mean Corpuscular Hemoglobin Concent 31.5 G/DL (32.0-36.0) L Red Cell Distribution Width 17.2 % (11.6-14.8) H Platelet Count 178 K/UL (150-450) Mean Platelet Volume 5.9 FL (6.5-10.1) L Neutrophils (%) (Auto) 64.3 % (45.0-75.0) Lymphocytes (%) (Auto) 17.5 % (20.0-45.0) L Monocytes (%) (Auto) 11.6 % (1.0-10.0) H Eosinophils (%) (Auto) 4.9 % (0.0-3.0) H Basophils (%) (Auto) 1.6 % (0.0-2.0) Prothrombin Time Pending Prothromb Time International Ratio Pending Activated Partial Thromboplast Time Pending Sodium Level Pending Potassium Level Pending Chloride Level Pending Carbon Dioxide Level Pending Blood Urea Nitrogen Pending Creatinine Pending Estimat Glomerular Filtration Rate Pending Glucose Level Pending Calcium Level Pending Total Bilirubin Pending Aspartate Amino Transf (AST/SGOT) Pending Alanine Aminotransferase (ALT/SGPT) Pending Alkaline Phosphatase Pending Total Protein Pending Albumin Pending Globulin Pending Height (Feet): 5 Height (Inches): 5.00 Weight (Pounds): 140 General Appearance: no apparent distress, alert Cardiovascular: normal rate Respiratory/Chest: normal breath sounds, no respiratory distress Abdominal Exam: normal bowel sounds, non tender, soft, other - s/p paracentesis Objective Procedure: CT Abdomen Pelvis w/Contrast Indications: Abdominal pain and distention Impression: Marked ascites resulting in abdominal pelvic distention, etiology indeterminate Both dilated and nondilated small bowel, favor ileus over obstruction. Pathologic mural thickening of one or more small bowel loops not excludable. Collapsed colon and rectum. Pathologic mural thickening not excludable. Enlarged, heterogeneous liver compatible with chronic hepatocellular disease. 12 mm enhancing nodule described is nonspecific, may be benign or malignant Gallbladder wall thickening most likely secondary to presence of ascites. Cholecystitis not excludable Bilateral end-stage renal disease Escobedo catheter Diffuse body wall edema compatible with anasarca Pleural effusions, nonspecific, may be secondary to presence of ascites Pericardial effusion, nonspecific Anasarca Pulmonary bibasal subsegmental atelectasis Cardiomegaly Diffuse skeletal sclerosis may represent metastatic neoplasm or metabolic abnormality Degenerative spondylosis Autumn Lutz N.P. Apr 20, 2016 10:39
[2016-04-20 10:43] LABS: INR 1.6 (0.9-1.1); PROTHROMBIN TIME 16.8 SEC (9.30-11.50)
[2016-04-20 10:50] LABS: ALBUMIN/GLOBULIN RATIO 0.6 (1.0-2.7); CALCIUM 6.9 mg/dL (8.6-10.2); CREATININE 6.9 mg/dL (0.5-0.9); GLOMERULAR FILTRATION RATE 7.4 mL/min (>60); POTASSIUM 5.3 mEQ/L (3.4-4.9); TOTAL PROTEIN 7.4 g/dL (6.6-8.7)
[2016-04-20] MEDS ORDERED: LORazepam 0.5mg tab ORAL ONE (12:15)
[2016-04-20 12:51] VITALS: BP 156/93
[2016-04-20] MEDS ORDERED: Miralax 17gm pkt ORAL PRN (14:30)
[2016-04-20] MEDS ORDERED: Zolpidem 5mg tab ORAL PRN (14:30)
[2016-04-20 16:00] VITALS: BP 137/77
--- NOTE | 2016-04-20 17:17 | Pulmonology Progress Note ---
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 Subjective ROS Limited/Unobtainable: No Interval Events: doing better Constitutional: Reports: no symptoms Allergies: Coded Allergies: No Known Allergies (Unverified , 09/20/15) Objective Last 24 Hour Vital Signs Date Time Temp Pulse Resp B/P Pulse Ox O2 Delivery O2 Flow Rate FiO2 04/20/16 15:30 Room Air 04/20/16 12:51 97.5 91 20 156/93 97 Room Air 04/20/16 12:20 Room Air 04/20/16 08:58 97.7 88 20 133/86 97 Room Air 04/20/16 07:35 93 20 Room Air 04/20/16 03:57 97.0 87 18 122/81 93 Room Air 04/20/16 00:36 98.4 98 19 136/82 95 Room Air 04/20/16 00:00 96 04/19/16 21:58 91 133/76 04/19/16 21:29 91 20 Room Air 21 04/19/16 20:00 97.9 93 20 133/76 95 Room Air 04/19/16 20:00 95 Intake and Output 04/19/16 04/20/16 19:00 07:00 Intake Total 865 ml 860 ml Balance 865 ml 860 ml Intake Oral 240 ml 380 ml IV Total 625 ml 480 ml # Bowel Movements 1 3 Objective General Appearance: WD/WN HEENT: normocephalic, atraumatic, PERRL Respiratory/Chest: lungs clear Breasts: no masses Cardiovascular: normal peripheral pulses Abdomen: normal bowel sounds, soft, non tender Genitourinary: normal external genitalia Extremities: no clubbing 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, no motor/sensory deficits Laboratory Tests 04/20/16 09:50: White Blood Count 4.9, Red Blood Count 3.25L, Hemoglobin 9.9L, Hematocrit 31.3L , Mean Corpuscular Volume 96, Mean Corpuscular Hemoglobin 30.4, Mean Corpuscular Hemoglobin Concent 31.5L, Red Cell Distribution Width 17.2H, Platelet Count 178, Mean Platelet Volume 5.9L, Neutrophils (%) (Auto) 64.3, Lymphocytes (%) (Auto) 17.5L, Monocytes (%) (Auto) 11.6H, Eosinophils (%) (Auto ) 4.9H, Basophils (%) (Auto) 1.6, Prothrombin Time 16.8H, Prothromb Time International Ratio 1.6H, Activated Partial Thromboplast Time 42H, Sodium Level 133L, Potassium Level 5.3H, Chloride Level 89L, Carbon Dioxide Level 29, Anion Gap 15, Blood Urea Nitrogen 31H, Creatinine 6.9H, Estimat Glomerular Filtration Rate 7.4, Glucose Level 94, Calcium Level 6.9L, Total Bilirubin 0.3, Aspartate Amino Transf (AST/SGOT) 16, Alanine Aminotransferase (ALT/SGPT) 6, Alkaline Phosphatase 126H, Total Protein 7.4, Albumin 2.9L, Globulin 4.5, Albumin/ Globulin Ratio 0.6L Current Medications Medications (Trade) Dose Ordered Sig/Ranjan Route PRN Reason Start Time Stop Time Status Last Admin Dose Admin Acetaminophen (Tylenol) 650 mg Q6H PRN ORAL Prn Headache/Temp > 101 04/20/16 04:15 05/20/16 04:14 Albuterol/ Ipratropium (DuoNeb 0.5-3(2.5)mg/3ml) 3 ml Q6H PRN HHN dyspnea 04/20/16 08:30 04/25/16 08:29 Amlodipine Besylate (Norvasc) 10 mg DAILY ORAL 04/20/16 09:00 05/20/16 08:59 Aspirin (ASA) 325 mg DAILY ORAL 04/20/16 09:00 05/20/16 08:59 Carvedilol (Coreg) 25 mg EVERY 12 HOURS ORAL 04/20/16 09:00 05/20/16 08:59 Clonidine HCl (Catapres) 0.1 mg Q4H PRN ORAL For High Blood Pressure 04/20/16 06:30 05/20/16 06:29 Dextrose (D10w) 1,000 ml @ 50 mls/hr Q20H IV 04/20/16 03:15 05/20/16 03:14 04/20/16 03:23 Dextrose (Dextrose 50%) STAT PRN IV Hypoglycemia 04/20/16 14:30 05/20/16 14:29 Docusate Sodium (Colace) 100 mg TID ORAL 04/20/16 09:00 05/20/16 08:59 Heparin Sodium (Porcine) (Heparin 5000 units/ml) 5,000 units EVERY 12 HOURS SUBQ 04/20/16 09:00 05/20/16 08:59 Insulin Aspart (NovoLOG) BEFORE MEALS AND HS SUBQ 04/20/16 06:30 05/20/16 06:29 04/20/16 06:11 Lactulose (Cephulac) 20 gm Q8HR ORAL 04/20/16 06:00 05/20/16 05:59 04/20/16 06:10 Metoclopramide HCl (Reglan) 5 mg TIAC ORAL 04/20/16 06:30 05/20/16 06:29 04/20/16 17:07 Morphine Sulfate (Morphine Sulfate) 1 mg Q4H PRN IVP For Pain 04/20/16 06:30 04/27/16 06:29 04/20/16 16:13 Ondansetron HCl (Zofran) 4 mg Q6H PRN IVP Nausea & Vomiting 04/20/16 08:30 05/20/16 08:29 Pantoprazole (Protonix) 40 mg DAILY ORAL 04/20/16 09:00 05/20/16 08:59 Polyethylene Glycol (Miralax) 17 gm HSPRN PRN ORAL Constipation 04/20/16 14:30 05/20/16 14:29 Rifaximin (Xifaxan) 550 mg EVERY 12 HOURS ORAL 04/20/16 09:00 04/27/16 08:59 Sevelamer Carbonate (Renvela) 1,600 mg TIAC ORAL 04/20/16 06:30 05/20/16 06:29 04/20/16 17:07 Thiamine HCl (Vitamin B1) 100 mg DAILY ORAL 04/20/16 09:00 05/20/16 08:59 Trazodone HCl (Desyrel) 100 mg BEDTIME ORAL 04/20/16 21:00 05/20/16 20:59 Zolpidem Tartrate (Ambien) 5 mg HSPRN PRN ORAL Insomnia 04/20/16 14:30 05/20/16 14:29 ANN MARIE OSULLIVAN Apr 20, 2016 17:17
--- NOTE | 2016-04-20 18:42 | Internal Med Progress Note ---
Subjective Date of Service: Apr 20, 2016 Physician Name Javier Alvarez Attending Physician Jackson Albright MD Current Medications Medications (Trade) Dose Ordered Sig/Ranjan Route PRN Reason Start Time Stop Time Status Last Admin Dose Admin Acetaminophen (Tylenol) 650 mg Q6H PRN ORAL Prn Headache/Temp > 101 04/20/16 04:15 05/20/16 04:14 Albuterol/ Ipratropium (DuoNeb 0.5-3(2.5)mg/3ml) 3 ml Q6H PRN HHN dyspnea 04/20/16 08:30 04/25/16 08:29 Amlodipine Besylate (Norvasc) 10 mg DAILY ORAL 04/20/16 09:00 05/20/16 08:59 Aspirin (ASA) 325 mg DAILY ORAL 04/20/16 09:00 05/20/16 08:59 Carvedilol (Coreg) 25 mg EVERY 12 HOURS ORAL 04/20/16 09:00 05/20/16 08:59 Clonidine HCl (Catapres) 0.1 mg Q4H PRN ORAL For High Blood Pressure 04/20/16 06:30 05/20/16 06:29 Dextrose (D10w) 1,000 ml @ 50 mls/hr Q20H IV 04/20/16 03:15 05/20/16 03:14 04/20/16 03:23 Dextrose (Dextrose 50%) STAT PRN IV Hypoglycemia 04/20/16 14:30 05/20/16 14:29 Docusate Sodium (Colace) 100 mg TID ORAL 04/20/16 09:00 05/20/16 08:59 Heparin Sodium (Porcine) (Heparin 5000 units/ml) 5,000 units EVERY 12 HOURS SUBQ 04/20/16 09:00 05/20/16 08:59 Insulin Aspart (NovoLOG) BEFORE MEALS AND HS SUBQ 04/20/16 06:30 05/20/16 06:29 04/20/16 06:11 Lactulose (Cephulac) 20 gm Q8HR ORAL 04/20/16 06:00 05/20/16 05:59 04/20/16 06:10 Metoclopramide HCl (Reglan) 5 mg TIAC ORAL 04/20/16 06:30 05/20/16 06:29 04/20/16 17:07 Morphine Sulfate (Morphine Sulfate) 1 mg Q4H PRN IVP For Pain 04/20/16 06:30 04/27/16 06:29 04/20/16 16:13 Ondansetron HCl (Zofran) 4 mg Q6H PRN IVP Nausea & Vomiting 04/20/16 08:30 05/20/16 08:29 Pantoprazole (Protonix) 40 mg DAILY ORAL 04/20/16 09:00 05/20/16 08:59 Polyethylene Glycol (Miralax) 17 gm HSPRN PRN ORAL Constipation 04/20/16 14:30 05/20/16 14:29 Rifaximin (Xifaxan) 550 mg EVERY 12 HOURS ORAL 04/20/16 09:00 04/27/16 08:59 Sevelamer Carbonate (Renvela) 1,600 mg TIAC ORAL 04/20/16 06:30 05/20/16 06:29 04/20/16 17:07 Thiamine HCl (Vitamin B1) 100 mg DAILY ORAL 04/20/16 09:00 05/20/16 08:59 Trazodone HCl (Desyrel) 100 mg BEDTIME ORAL 04/20/16 21:00 05/20/16 20:59 Zolpidem Tartrate (Ambien) 5 mg HSPRN PRN ORAL Insomnia 04/20/16 14:30 05/20/16 14:29 Allergies: Coded Allergies: No Known Allergies (Unverified , 09/20/15) ROS Limited/Unobtainable: No Constitutional: Reports: no symptoms HEENT: Reports: no symptoms Cardiovascular: Reports: no symptoms Respiratory: Reports: no symptoms Gastrointestinal/Abdominal: Reports: abdominal pain Genitourinary: Reports: no symptoms Neurologic/Psychiatric: Reports: no symptoms Subjective 61 YO F admitted with abdominal distention and pain. Now ascites. Cover for Int [facility]-Dr Albright. S/P paracentesis 04/18/16. Objective Last Vital Signs Date Time Temp Pulse Resp B/P Pulse Ox O2 Delivery O2 Flow Rate FiO2 04/20/16 15:30 Room Air 04/20/16 12:51 97.5 91 20 156/93 97 04/20/16 07:35 21 04/19/16 12:00 2.0 Laboratory Tests Test 04/20/16 09:50 White Blood Count 4.9 K/UL (4.8-10.8) Red Blood Count 3.25 M/UL (4.20-5.40) L Hemoglobin 9.9 G/DL (12.0-16.0) L Hematocrit 31.3 % (37.0-47.0) L Mean Corpuscular Volume 96 FL (80-99) Mean Corpuscular Hemoglobin 30.4 PG (27.0-31.0) Mean Corpuscular Hemoglobin Concent 31.5 G/DL (32.0-36.0) L Red Cell Distribution Width 17.2 % (11.6-14.8) H Platelet Count 178 K/UL (150-450) Mean Platelet Volume 5.9 FL (6.5-10.1) L Neutrophils (%) (Auto) 64.3 % (45.0-75.0) Lymphocytes (%) (Auto) 17.5 % (20.0-45.0) L Monocytes (%) (Auto) 11.6 % (1.0-10.0) H Eosinophils (%) (Auto) 4.9 % (0.0-3.0) H Basophils (%) (Auto) 1.6 % (0.0-2.0) Prothrombin Time 16.8 SEC (9.30-11.50) H Prothromb Time International Ratio 1.6 (0.9-1.1) H Activated Partial Thromboplast Time 42 SEC (23-33) H Sodium Level 133 mEQ/L (135-145) L Potassium Level 5.3 mEQ/L (3.4-4.9) H Chloride Level 89 mEQ/L (98-107) L Carbon Dioxide Level 29 mEQ/L (20-30) Anion Gap 15 (5-15) Blood Urea Nitrogen 31 mg/dL (7-23) H Creatinine 6.9 mg/dL (0.5-0.9) H Estimat Glomerular Filtration Rate 7.4 mL/min (>60) Glucose Level 94 mg/dL (74-106) Calcium Level 6.9 mg/dL (8.6-10.2) L Total Bilirubin 0.3 mg/dL (0.0-1.2) Aspartate Amino Transf (AST/SGOT) 16 U/L (5-40) Alanine Aminotransferase (ALT/SGPT) 6 U/L (3-33) Alkaline Phosphatase 126 U/L (35-104) H Total Protein 7.4 g/dL (6.6-8.7) Albumin 2.9 g/dL (3.5-5.2) L Globulin 4.5 g/dL Albumin/Globulin Ratio 0.6 (1.0-2.7) L Intake and Output 04/19/16 04/20/16 19:00 07:00 Intake Total 865 ml 860 ml Balance 865 ml 860 ml Intake Oral 240 ml 380 ml IV Total 625 ml 480 ml # Bowel Movements 1 3 Objective General Appearance: WD/WN, no apparent distress, alert EENT: PERRL/EOMI, normal ENT inspection, TMs normal Neck: non-tender, normal alignment, supple Cardiovascular: normal peripheral pulses, normal rate, regular rhythm, no gallop/murmur, no JVD Respiratory/Chest: chest wall non-tender, lungs clear, normal breath sounds, no respiratory distress, no accessory muscle use Abdomen: decreased bowel sounds, distended, guarding, tender Extremities: normal range of motion Edema: moderate edema 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 Await liver studies-see GI note. (3) Abdominal pain (4) Ascites Assessment & Plan: S/P paracentesis (3.6L)-await results. See GI note. (5) ESRD (end stage renal disease) Assessment & Plan: S/P hemodialysis 04/18/16. See nephrology note. (6) HTN (hypertension) Assessment & Plan: Cont coreg and norvasc. (7) CHF (congestive heart failure) Assessment & Plan: see cardiology note. Status: progressing JAVIER ALVAREZ Apr 20, 2016 18:42
[2016-04-20 20:00] VITALS: BP 153/81
[2016-04-20] MEDS: TraZODone 100mg tab ORAL SCH (21:10)
[2016-04-21] VITALS (10 sets, daily range): BP systolic 100–163; BP diastolic 68–93
[2016-04-21] MEDS: Morphine Sulfate 2mg/ml Inj IVP PRN ×3 (03:20→21:32)
[2016-04-21] MEDS: Lactulose 20gm/30ml UDC ORAL SCH ×3 (06:00→21:34)
[2016-04-21] MEDS: NovoLOG Insulin Flexpen SUBQ SCH ×4 (06:02→21:31)
[2016-04-21 07:07] LABS: INR 1.6 (0.9-1.1); PROTHROMBIN TIME 16.6 SEC (9.30-11.50)
[2016-04-21 07:15] LABS: BASOPHILS % (AUTO) 0.8 % (0.0-2.0); EOSINOPHILS % (AUTO) 3.4 % (0.0-3.0); LYMPHOCYTES % (AUTO) 19.7 % (20.0-45.0); MEAN CORPUSCULAR HEMOGLOBIN 30.9 PG (27.0-31.0); MEAN CORPUSCULAR HGB CONC 31.7 G/DL (32.0-36.0); MEAN CORPUSCULAR VOLUME 97 FL (80-99); MEAN PLATELET VOLUME 5.9 FL (6.5-10.1); MONOCYTES % (AUTO) 9.7 % (1.0-10.0); NEUTROPHILS % (AUTO) 66.4 % (45.0-75.0); PLATELET COUNT 168 K/UL (150-450); RED BLOOD COUNT 3.19 M/UL (4.20-5.40); RED CELL DISTRIBUTION WIDTH 17.9 % (11.6-14.8); WHITE BLOOD COUNT 5.4 K/UL (4.8-10.8)
[2016-04-21 07:18] LABS: ALBUMIN/GLOBULIN RATIO 0.6 (1.0-2.7); CALCIUM 7.2 mg/dL (8.6-10.2); CREATININE 4.9 mg/dL (0.5-0.9); POTASSIUM 4.5 mEQ/L (3.4-4.9); TOTAL PROTEIN 7.3 g/dL (6.6-8.7)
[2016-04-21] MEDS: Carvedilol 25mg Tab ORAL SCH ×2 (08:45→21:31)
[2016-04-21] MEDS: Docusate 100mg cap ORAL SCH ×3 (08:45→17:36)
[2016-04-21] MEDS: Rifaximin 550mg tab ORAL SCH ×2 (08:49→21:30)
[2016-04-21] MEDS: Heparin 5000 units/ml inj SUBQ SCH ×2 (08:49→21:40)
[2016-04-21] MEDS: Thiamine 100mg tab ORAL SCH (08:49)
--- NOTE | 2016-04-21 09:18 | General Progress Note ---
Assessment/Plan Status: stable - from renal stand Assessment/Plan status: ESRD- HyperKalemia- Ascitis- DM HTN At Fib Anemia Plan: optimize cardiac and pulmonary status- BP meds adjustment- 2 D Echo : Left ventricular ejection fraction estimated to be 70 %. Monitor lytes and renal parameters- HD in am- last dome 04/20 Per consultants Subjective ROS Limited/Unobtainable: No Constitutional: Reports: malaise Allergies: Coded Allergies: No Known Allergies (Unverified , 09/20/15) Objective Last 24 Hour Vital Signs Date Time Temp Pulse Resp B/P Pulse Ox O2 Delivery O2 Flow Rate FiO2 04/21/16 08:48 89 142/83 04/21/16 08:45 89 142/83 04/21/16 07:51 99 20 Room Air 04/21/16 04:00 98.3 94 18 139/89 92 Room Air 04/21/16 03:50 98.3 04/21/16 00:00 98.6 107 20 163/93 91 Room Air 04/20/16 21:10 108 153/87 04/20/16 20:00 98.5 108 22 153/81 91 Room Air 04/20/16 19:36 102 18 Room Air 21 04/20/16 16:00 98.4 103 22 137/77 89 Room Air 04/20/16 15:30 Room Air 04/20/16 12:51 97.5 91 20 156/93 97 Room Air 04/20/16 12:20 Room Air Intake and Output 04/20/16 04/21/16 19:00 07:00 Intake Total 670 ml 1030 ml Output Total 2370 ml Balance -1700 ml 1030 ml Intake Oral 120 ml 480 ml IV Total 550 ml 550 ml Hemodialysis UF 2370 ml # Bowel Movements 4 4 Laboratory Tests 04/20/16 09:50: White Blood Count 4.9, Red Blood Count 3.25L, Hemoglobin 9.9L, Hematocrit 31.3L , Mean Corpuscular Volume 96, Mean Corpuscular Hemoglobin 30.4, Mean Corpuscular Hemoglobin Concent 31.5L, Red Cell Distribution Width 17.2H, Platelet Count 178, Mean Platelet Volume 5.9L, Neutrophils (%) (Auto) 64.3, Lymphocytes (%) (Auto) 17.5L, Monocytes (%) (Auto) 11.6H, Eosinophils (%) (Auto ) 4.9H, Basophils (%) (Auto) 1.6, Prothrombin Time 16.8H, Prothromb Time International Ratio 1.6H, Activated Partial Thromboplast Time 42H, Sodium Level 133L, Potassium Level 5.3H, Chloride Level 89L, Carbon Dioxide Level 29, Anion Gap 15, Blood Urea Nitrogen 31H, Creatinine 6.9H, Estimat Glomerular Filtration Rate 7.4, Glucose Level 94, Calcium Level 6.9L, Total Bilirubin 0.3, Aspartate Amino Transf (AST/SGOT) 16, Alanine Aminotransferase (ALT/SGPT) 6, Alkaline Phosphatase 126H, Total Protein 7.4, Albumin 2.9L, Globulin 4.5, Albumin/ Globulin Ratio 0.6L 04/21/16 05:20: White Blood Count 5.4, Red Blood Count 3.19L, Hemoglobin 9.9L, Hematocrit 31.0L , Mean Corpuscular Volume 97, Mean Corpuscular Hemoglobin 30.9, Mean Corpuscular Hemoglobin Concent 31.7L, Red Cell Distribution Width 17.9H, Platelet Count 168, Mean Platelet Volume 5.9L, Neutrophils (%) (Auto) 66.4, Lymphocytes (%) (Auto) 19.7L, Monocytes (%) (Auto) 9.7, Eosinophils (%) (Auto) 3.4H, Basophils (%) (Auto) 0.8, Prothrombin Time 16.6H, Prothromb Time International Ratio 1.6H, Activated Partial Thromboplast Time 43H, Sodium Level 135, Potassium Level 4.5, Chloride Level 90L, Carbon Dioxide Level 32H, Anion Gap 13, Blood Urea Nitrogen 20, Creatinine 4.9H, Estimat Glomerular Filtration Rate 11.0, Glucose Level 87, Calcium Level 7.2L, Total Bilirubin 0.4, Aspartate Amino Transf (AST/SGOT) 18, Alanine Aminotransferase (ALT/SGPT) 7, Alkaline Phosphatase 137H, Total Protein 7.3, Albumin 3.0L, Globulin 4.3, Albumin/ Globulin Ratio 0.6L, Ammonia 29 Height (Feet): 5 Height (Inches): 5.00 Weight (Pounds): 140 General Appearance: no apparent distress Cardiovascular: tachycardia Respiratory/Chest: decreased breath sounds Abdomen: other - ascitis Objective other PE not changed PEPE MONTERROSO Apr 21, 2016 09:18
[2016-04-21 10:38] LABS: HEMOLYSIS 3; IRON 39 ug/dL (37-145); TOTAL IRON BINDING CAPACITY 133 ug/dL (250-400)
--- NOTE | 2016-04-21 10:45 | Pre-Procedure Note/Attestation ---
Pre-Procedure Note/Attestation Complete Prior to Procedure Planned Procedure: not applicable Procedure Narrative: egd Indications for Procedure Pre-Operative Diagnosis: cirrhosis Attestation I attest that I discussed the nature of the procedure; its benefits; risks and complications; and alternatives (and the risks and benefits of such alternatives ), prior to the procedure, with the patient (or the patient's legal pest control service representative). I attest that, if there was a reasonable possibility of needing a blood transfusion, the patient (or the patient's legal pest control service representative) was given the [facility] standardized written summary, pursuant to the Deion Dargan Blood Safety Act ([place] Health and Safety Code # 1645, as amended). I attest that I re-evaluated the patient just prior to the surgery and that there has been no change in the patient's H&P, except as documented below: GEOVANNY RAMIREZ Apr 21, 2016 10:45
[2016-04-21 10:47] LABS: FERRITIN 706 ng/mL (13-150)
[2016-04-21 11:03] LABS: ANISOCYTOSIS 1+; BAND NEUTROPHILS % (MANUAL) 0 % (0-8); BASOPHILS % (MANUAL) 0 % (0-2); EOSINOPHILS % (MANUAL) 3 % (0-3); HYPOCHROMASIA 1+; LYMPHOCYTES % (MANUAL) 14 % (20-45); MACROCYTES OCCASIONAL; NEUTROPHILS % (MANUAL) 75 % (45-75); PLATELET ESTIMATE ADEQUATE; PLATELET MORPHOLOGY NORMAL; TOTAL CELLS COUNTED 100
--- NOTE | 2016-04-21 11:03 | Immediate Post-Op Evaluation ---
Immediate Post-Op Evalulation Immediate Post-Op Evalulation Date of Evaluation: Apr 21, 2016 Time of Evaluation: 11:55 IV Fluids: 300 Blood Pressure Systolic: 100 Blood Pressure Diastolic: 68 Pulse Rate: 90 Respiratory Rate: 20 O2 Sat by Pulse Oximetry: 100 Temperature (Fahrenheit): 99.3 Pain Score (1-10): 0 Nausea: No Vomiting: No Complications none Patient Status: awake, patent, none Hydration Status: adequate Otto Odonnell MD Apr 21, 2016 11:03
--- NOTE | 2016-04-21 11:03 | Anethesia Preoperative Eval ---
Anesthesia Pre-op PMH/ROS General Date of Evaluation: Apr 21, 2016 Time of Evaluation: 11:25 Anesthesiologist: gigi ASA Score: ASA 3 Mallampati Score Class I : Soft palate, uvula, fauces, pillars visible Class II: Soft palate, uvula, fauces visible Class III: Soft palate, base of uvula visible Class IV: Only hard plate visible Mallampati Classification: Class II Surgeon: diaz Diagnosis: anemia Surgical Procedure: egd Anesthesia History: none Social History: alcohol use Allergies: Coded Allergies: No Known Allergies (Unverified , 09/20/15) Past Medical History Cardiovascular: Reports: HTN, arrhythmia - A. FIB. Gastrointestinal/Genitourinary: Reports: ESRD - DIALYSIS, GERD Endocrine: Reports: DM Hematology/Immune: Reports: anemia Anesthesia Pre-op Phys. Exam Physician Exam Last Vital Signs Date Time Temp Pulse Resp B/P Pulse Ox O2 Delivery O2 Flow Rate FiO2 04/21/16 08:48 89 142/83 04/21/16 08:32 97.7 20 95 Room Air 04/20/16 19:36 21 04/19/16 12:00 2.0 Airway Exam Mallampati Score: Class II Teeth: missing Anesthesia Pre-op A/P Labs Hematology Test 04/21/16 05:20 White Blood Count 5.4 K/UL (4.8-10.8) Red Blood Count 3.19 M/UL (4.20-5.40) L Hemoglobin 9.9 G/DL (12.0-16.0) L Hematocrit 31.0 % (37.0-47.0) L Mean Corpuscular Volume 97 FL (80-99) Mean Corpuscular Hemoglobin 30.9 PG (27.0-31.0) Mean Corpuscular Hemoglobin Concent 31.7 G/DL (32.0-36.0) L Red Cell Distribution Width 17.9 % (11.6-14.8) H Platelet Count 168 K/UL (150-450) Mean Platelet Volume 5.9 FL (6.5-10.1) L Neutrophils (%) (Auto) 66.4 % (45.0-75.0) Lymphocytes (%) (Auto) 19.7 % (20.0-45.0) L Monocytes (%) (Auto) 9.7 % (1.0-10.0) Eosinophils (%) (Auto) 3.4 % (0.0-3.0) H Basophils (%) (Auto) 0.8 % (0.0-2.0) Neutrophils % (Manual) Pending Lymphocytes % (Manual) Pending Platelet Estimate Pending Platelet Morphology Pending Erythrocyte Sedimentation Rate Pending Coagulation Test 04/21/16 05:20 Prothrombin Time 16.6 SEC (9.30-11.50) H Prothromb Time International Ratio 1.6 (0.9-1.1) H Activated Partial Thromboplast Time 43 SEC (23-33) H Chemistry Test 04/21/16 05:20 Sodium Level 135 mEQ/L (135-145) Potassium Level 4.5 mEQ/L (3.4-4.9) Chloride Level 90 mEQ/L (98-107) L Carbon Dioxide Level 32 mEQ/L (20-30) H Anion Gap 13 (5-15) Blood Urea Nitrogen 20 mg/dL (7-23) Creatinine 4.9 mg/dL (0.5-0.9) H Estimat Glomerular Filtration Rate 11.0 mL/min (>60) Glucose Level 87 mg/dL (74-106) Calcium Level 7.2 mg/dL (8.6-10.2) L Iron Level 39 ug/dL (37-145) Total Iron Binding Capacity 133 ug/dL (250-400) L Percent Iron Saturation 29 % (15-50) Unsaturated Iron Binding 94 ug/dL (112-346) L Ferritin 706 ng/mL (13-150) H Total Bilirubin 0.4 mg/dL (0.0-1.2) Aspartate Amino Transf (AST/SGOT) 18 U/L (5-40) Alanine Aminotransferase (ALT/SGPT) 7 U/L (3-33) Alkaline Phosphatase 137 U/L (35-104) H Ammonia 29 umol/L (11-51) Total Protein 7.3 g/dL (6.6-8.7) Albumin 3.0 g/dL (3.5-5.2) L Globulin 4.3 g/dL Albumin/Globulin Ratio 0.6 (1.0-2.7) L Risk Assessment & Plan Plan: propofol Status Change Before Surgery: Otto Jeffery MD Apr 21, 2016 11:02
--- NOTE | 2016-04-21 11:04 | 48 Hour Post Anesthesia Eval ---
Post Anesthesia Evaluation Date of Evaluation: Apr 21, 2016 Time of Evaluation: 12:20 Blood Pressure Systolic: 123 0: 79 Pulse Rate: 90 Respiratory Rate: 18 Temperature (Fahrenheit): 99 O2 Sat by Pulse Oximetry: 97 Airway: patent Nausea: No Vomiting: No Pain Intensity: 0 Hydration Status: adequate Cardiopulmonary Status: stable Mental Status/LOC: patient returned to baseline Follow-up Care/Observations: n/a Post-Anesthesia Complications: tolerated well Follow-up care needed: N/A Otto Odonnell MD Apr 21, 2016 11:04
[2016-04-21 11:13] LABS: PATH BLOOD SMEAR/OMC SENT TO PATHOLOGIST
[2016-04-21] MEDS ORDERED: NS 550ML IV ONE (11:29)
[2016-04-21] MEDS ORDERED: Propofol 10mg/ml 20ml IV ONE (11:30)
--- NOTE | 2016-04-21 11:53 | Endoscopy Procedure Note ---
Endoscopy Procedure Note Indication for Procedure: anemia Procedures Performed: EGD Operative Findings/Diagnosis: gastritis Specimen: yes Pt Tolerated Procedure Well: Yes Estimated Blood Loss: none Anesthesiologist: gigi Anesthesia: MAC Implant(s) used?: No 50 yrs or older w/o bx or poly: Not Applicable 10yrs. F/U not recommended: Not Applicable GEOVANNY RAMIREZ Apr 21, 2016 11:53
--- NOTE | 2016-04-21 13:35 | Pulmonology Progress Note ---
Assessment/Plan Assessment/Plan ASSESSMENT pulmonary edema CHF, diastolic dysfunction dyspnea 2 to diastolic dysfunction and ascites pleural effusion severe pulmonary HTN HTN valvular heart disease ( AR, TR) pericardial effusion abdominal pain hx of ETOH abuse ascites, s/p paracentesis-3.6 L elevated tumor markers, likely malignant process anemia elevated transaminase hepatitis B hepatic encephalopathy symptomatic weight loss ESRD, on HD DM elevated TSH PLAN OF CARE O2 HHN CXR with bilateral congestive changes, [place] atelectasis, fup with CXR in am ECHO with EF 70%, significant LVH and RVSP of 60 c/w severe pulmonary HTN, small to moderate pericardial effusion, moderate TR, small AR BP management with BB and CCB, optimize as needed CT A/P with marked ascites ; s/p paracentesis -3.6 L GI follows elevated tumor markers: Ca 125, Ca 19-9. mil elevation in CEA, AFP WNL onco seen patient earlier bone scan and TV US pending fup with ascitic fluid cytology hepatitis panel + hep B monitor HH, transfuse prn stool OB s/p EGD today with finding of gastritis PPI bowel regimen nephro follows, HD per nephro, monitor renal parameters, lytes continue lactulose and Xifaxan , check ammonia BS management with SS of insulin, HgA1c -5.2 case discussed and evaluated by supervising physician PLAN OF CARE Subjective Allergies: Coded Allergies: No Known Allergies (Unverified , 09/20/15) Subjective endoscopy today afebrile, no leukocytosis on RA pulse oximetry stable seen desiree;ier by oncologist Objective Last 24 Hour Vital Signs Date Time Temp Pulse Resp B/P Pulse Ox O2 Delivery O2 Flow Rate FiO2 04/21/16 12:22 90 18 97 04/21/16 12:20 99.0 90 18 123/79 97 Room Air 04/21/16 12:00 90 24 118/78 98 Room Air 04/21/16 11:55 91 22 113/85 96 Room Air 04/21/16 11:53 90 20 100 04/21/16 11:50 99.3 90 18 100/68 98 Room Air 04/21/16 08:48 89 142/83 04/21/16 08:45 89 142/83 04/21/16 08:32 97.7 89 20 142/83 95 Room Air 04/21/16 07:51 99 20 Room Air 04/21/16 04:00 98.3 94 18 139/89 92 Room Air 04/21/16 03:50 98.3 04/21/16 00:00 98.6 107 20 163/93 91 Room Air 04/20/16 21:10 108 153/87 04/20/16 20:00 98.5 108 22 153/81 91 Room Air 04/20/16 19:36 102 18 Room Air 21 04/20/16 16:00 98.4 103 22 137/77 89 Room Air 04/20/16 15:30 Room Air Intake and Output 04/20/16 04/21/16 19:00 07:00 Intake Total 670 ml 1030 ml Output Total 2370 ml Balance -1700 ml 1030 ml Intake Oral 120 ml 480 ml IV Total 550 ml 550 ml Hemodialysis UF 2370 ml # Bowel Movements 4 4 Objective General Appearance: WD/WN, no apparent distress, alert, responsive EENT: PERRL/EOMI, normal ENT inspection, TMs normal Neck: non-tender, normal alignment, supple Cardiovascular: normal peripheral pulses, normal rate, regular rhythm, no gallop/murmur, no JVD Respiratory/Chest: chest wall non-tender, lungs clear, no respiratory distress , no accessory muscle use Abdomen: hypoactive bowel sounds, distended, nontender Extremities: normal range of motion Edema: moderate edema 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 Skin: normal pigmentation, warm/dry Laboratory Tests 04/21/16 05:20: White Blood Count 5.4, Red Blood Count 3.19L, Hemoglobin 9.9L, Hematocrit 31.0L , Mean Corpuscular Volume 97, Mean Corpuscular Hemoglobin 30.9, Mean Corpuscular Hemoglobin Concent 31.7L, Red Cell Distribution Width 17.9H, Platelet Count 168, Mean Platelet Volume 5.9L, Neutrophils (%) (Auto) 66.4, Lymphocytes (%) (Auto) 19.7L, Monocytes (%) (Auto) 9.7, Eosinophils (%) (Auto) 3.4H, Basophils (%) (Auto) 0.8, Differential Total Cells Counted 100, Neutrophils % (Manual) 75, Lymphocytes % (Manual) 14L, Monocytes % (Manual) 8, Eosinophils % (Manual) 3, Basophils % (Manual) 0, Band Neutrophils 0, Platelet Estimate Adequate, Platelet Morphology Normal, Hypochromasia 1+, Anisocytosis 1+ , Macrocytosis Occasional, Erythrocyte Sedimentation Rate 106H, Prothrombin Time 16.6H, Prothromb Time International Ratio 1.6H, Activated Partial Thromboplast Time 43H, Sodium Level 135, Potassium Level 4.5, Chloride Level 90L , Carbon Dioxide Level 32H, Anion Gap 13, Blood Urea Nitrogen 20, Creatinine 4.9H, Estimat Glomerular Filtration Rate 11.0, Glucose Level 87, Calcium Level 7.2L, Iron Level 39, Total Iron Binding Capacity 133L, Percent Iron Saturation 29, Unsaturated Iron Binding 94L, Ferritin 706H, Total Bilirubin 0.4, Aspartate Amino Transf (AST/SGOT) 18, Alanine Aminotransferase (ALT/SGPT) 7, Alkaline Phosphatase 137H, Ammonia 29, Total Protein 7.3, Albumin 3.0L, Globulin 4.3, Albumin/Globulin Ratio 0.6L, HIV (1&2) Antibody Rapid Negative Current Medications Medications (Trade) Dose Ordered Sig/Ranjan Route PRN Reason Start Time Stop Time Status Last Admin Dose Admin Acetaminophen (Tylenol) 650 mg Q6H PRN ORAL Prn Headache/Temp > 101 04/20/16 04:15 05/20/16 04:14 Albuterol/ Ipratropium (DuoNeb 0.5-3(2.5)mg/3ml) 3 ml Q6H PRN HHN dyspnea 04/20/16 08:30 04/25/16 08:29 Amlodipine Besylate (Norvasc) 10 mg DAILY ORAL 04/20/16 09:00 05/20/16 08:59 Aspirin (ASA) 325 mg DAILY ORAL 04/20/16 09:00 05/20/16 08:59 Carvedilol (Coreg) 25 mg EVERY 12 HOURS ORAL 04/20/16 09:00 05/20/16 08:59 04/20/16 21:10 Clonidine HCl (Catapres) 0.1 mg Q4H PRN ORAL For High Blood Pressure 04/20/16 06:30 05/20/16 06:29 Dextrose (D10w) 1,000 ml @ 50 mls/hr Q20H IV 04/20/16 03:15 05/20/16 03:14 04/20/16 23:52 Dextrose (Dextrose 50%) STAT PRN IV Hypoglycemia 04/20/16 14:30 4/1/17 14:29 Docusate Sodium (Colace) 100 mg TID ORAL 04/20/16 09:00 05/20/16 08:59 Heparin Sodium (Porcine) (Heparin 5000 units/ml) 5,000 units EVERY 12 HOURS SUBQ 04/20/16 09:00 05/20/16 08:59 Insulin Aspart (NovoLOG) BEFORE MEALS AND HS SUBQ 04/20/16 06:30 05/20/16 06:29 04/20/16 21:13 Lactulose (Cephulac) 20 gm Q8HR ORAL 04/20/16 06:00 05/20/16 05:59 04/20/16 21:10 Metoclopramide HCl (Reglan) 5 mg TIAC ORAL 04/20/16 06:30 05/20/16 06:29 04/20/16 17:07 Morphine Sulfate (Morphine Sulfate) 1 mg Q4H PRN IVP For Pain 04/20/16 06:30 04/27/16 06:29 04/21/16 13:26 Ondansetron HCl (Zofran) 4 mg Q6H PRN IVP Nausea & Vomiting 04/20/16 08:30 05/20/16 08:29 Pantoprazole (Protonix) 40 mg DAILY ORAL 04/20/16 09:00 05/20/16 08:59 Polyethylene Glycol (Miralax) 17 gm HSPRN PRN ORAL Constipation 04/20/16 14:30 05/20/16 14:29 Rifaximin (Xifaxan) 550 mg EVERY 12 HOURS ORAL 04/20/16 09:00 04/27/16 08:59 04/20/16 21:09 Sevelamer Carbonate (Renvela) 1,600 mg TIAC ORAL 04/20/16 06:30 05/20/16 06:29 04/20/16 17:07 Sodium Chloride (Sodium Chloride 1000ml bag) 1,000 ml @ 10 mls/hr Q24H IVLG 04/21/16 11:40 04/21/16 13:39 Thiamine HCl (Vitamin B1) 100 mg DAILY ORAL 04/20/16 09:00 05/20/16 08:59 Trazodone HCl (Desyrel) 100 mg BEDTIME ORAL 04/20/16 21:00 05/20/16 20:59 04/20/16 21:10 Zolpidem Tartrate 5 mg 5 mg HSPRN PRN ORAL Insomnia 04/20/16 14:30 05/20/16 14:29 [facility] ([facility])Patti NP Apr 21, 2016 13:35
--- NOTE | 2016-04-21 18:43 | Internal Med Progress Note ---
Subjective Date of Service: Apr 21, 2016 Physician Name Adair Huerta Attending Physician Jackson Albright MD Current Medications Medications (Trade) Dose Ordered Sig/Ranjan Route PRN Reason Start Time Stop Time Status Last Admin Dose Admin Acetaminophen (Tylenol) 650 mg Q6H PRN ORAL Prn Headache/Temp > 101 04/20/16 04:15 05/20/16 04:14 04/21/16 16:38 Albuterol/ Ipratropium (DuoNeb 0.5-3(2.5)mg/3ml) 3 ml Q6H PRN HHN dyspnea 04/20/16 08:30 04/25/16 08:29 Amlodipine Besylate (Norvasc) 10 mg DAILY ORAL 04/20/16 09:00 05/20/16 08:59 Aspirin (ASA) 325 mg DAILY ORAL 04/20/16 09:00 05/20/16 08:59 Carvedilol (Coreg) 25 mg EVERY 12 HOURS ORAL 04/20/16 09:00 05/20/16 08:59 04/20/16 21:10 Clonidine HCl (Catapres) 0.1 mg Q4H PRN ORAL For High Blood Pressure 04/20/16 06:30 05/20/16 06:29 Dextrose (D10w) 1,000 ml @ 50 mls/hr Q20H IV 04/20/16 03:15 05/20/16 03:14 04/20/16 23:52 Dextrose (Dextrose 50%) STAT PRN IV Hypoglycemia 04/20/16 14:30 05/20/16 14:29 Docusate Sodium (Colace) 100 mg TID ORAL 04/20/16 09:00 05/20/16 08:59 Heparin Sodium (Porcine) (Heparin 5000 units/ml) 5,000 units EVERY 12 HOURS SUBQ 04/20/16 09:00 05/20/16 08:59 Insulin Aspart (NovoLOG) BEFORE MEALS AND HS SUBQ 04/20/16 06:30 05/20/16 06:29 04/21/16 17:36 Lactulose (Cephulac) 20 gm Q8HR ORAL 04/20/16 06:00 05/20/16 05:59 04/20/16 21:10 Metoclopramide HCl (Reglan) 5 mg TIAC ORAL 04/20/16 06:30 05/20/16 06:29 04/21/16 16:37 Morphine Sulfate (Morphine Sulfate) 1 mg Q4H PRN IVP For Pain 04/20/16 06:30 04/27/16 06:29 04/21/16 13:26 Ondansetron HCl (Zofran) 4 mg Q6H PRN IVP Nausea & Vomiting 04/20/16 08:30 05/20/16 08:29 Pantoprazole (Protonix) 40 mg DAILY ORAL 04/20/16 09:00 05/20/16 08:59 Polyethylene Glycol (Miralax) 17 gm HSPRN PRN ORAL Constipation 04/20/16 14:30 05/20/16 14:29 Rifaximin (Xifaxan) 550 mg EVERY 12 HOURS ORAL 04/20/16 09:00 04/27/16 08:59 04/20/16 21:09 Sevelamer Carbonate (Renvela) 1,600 mg TIAC ORAL 04/20/16 06:30 05/20/16 06:29 04/21/16 16:37 Thiamine HCl (Vitamin B1) 100 mg DAILY ORAL 04/20/16 09:00 05/20/16 08:59 Trazodone HCl (Desyrel) 100 mg BEDTIME ORAL 04/20/16 21:00 05/20/16 20:59 04/20/16 21:10 Zolpidem Tartrate (Ambien) 5 mg HSPRN PRN ORAL Insomnia 04/20/16 14:30 05/20/16 14:29 Allergies: Coded Allergies: No Known Allergies (Unverified , 09/20/15) ROS Limited/Unobtainable: No Constitutional: Reports: no symptoms HEENT: Reports: no symptoms Cardiovascular: Reports: no symptoms Respiratory: Reports: no symptoms Gastrointestinal/Abdominal: Reports: abdomen distended, abdominal pain Genitourinary: Reports: no symptoms Neurologic/Psychiatric: Reports: no symptoms Subjective 61 YO F admitted with abdominal distention and pain. Now ascites. Cover for Int Med-Dr Albright. S/P paracentesis 04/18/16. S/P EGD today 04/21/16. Objective Last Vital Signs Date Time Temp Pulse Resp B/P Pulse Ox O2 Delivery O2 Flow Rate FiO2 04/21/16 17:37 98.1 04/21/16 17:07 99 22 149/78 94 Room Air 04/20/16 19:36 21 04/19/16 12:00 2.0 Laboratory Tests Test 04/21/16 05:20 04/21/16 15:20 White Blood Count 5.4 K/UL (4.8-10.8) Red Blood Count 3.19 M/UL (4.20-5.40) L Hemoglobin 9.9 G/DL (12.0-16.0) L Hematocrit 31.0 % (37.0-47.0) L Mean Corpuscular Volume 97 FL (80-99) Mean Corpuscular Hemoglobin 30.9 PG (27.0-31.0) Mean Corpuscular Hemoglobin Concent 31.7 G/DL (32.0-36.0) L Red Cell Distribution Width 17.9 % (11.6-14.8) H Platelet Count 168 K/UL (150-450) Mean Platelet Volume 5.9 FL (6.5-10.1) L Neutrophils (%) (Auto) 66.4 % (45.0-75.0) Lymphocytes (%) (Auto) 19.7 % (20.0-45.0) L Monocytes (%) (Auto) 9.7 % (1.0-10.0) Eosinophils (%) (Auto) 3.4 % (0.0-3.0) H Basophils (%) (Auto) 0.8 % (0.0-2.0) Differential Total Cells Counted 100 Neutrophils % (Manual) 75 % (45-75) Lymphocytes % (Manual) 14 % (20-45) L Monocytes % (Manual) 8 % (1-10) Eosinophils % (Manual) 3 % (0-3) Basophils % (Manual) 0 % (0-2) Band Neutrophils 0 % (0-8) Platelet Estimate Adequate Platelet Morphology Normal Hypochromasia 1+ Anisocytosis 1+ Macrocytosis Occasional Erythrocyte Sedimentation Rate 106 MM/HR (0-30) H Prothrombin Time 16.6 SEC (9.30-11.50) H Prothromb Time International Ratio 1.6 (0.9-1.1) H Activated Partial Thromboplast Time 43 SEC (23-33) H Sodium Level 135 mEQ/L (135-145) Potassium Level 4.5 mEQ/L (3.4-4.9) Chloride Level 90 mEQ/L (98-107) L Carbon Dioxide Level 32 mEQ/L (20-30) H Anion Gap 13 (5-15) Blood Urea Nitrogen 20 mg/dL (7-23) Creatinine 4.9 mg/dL (0.5-0.9) H Estimat Glomerular Filtration Rate 11.0 mL/min (>60) Glucose Level 87 mg/dL (74-106) Calcium Level 7.2 mg/dL (8.6-10.2) L Iron Level 39 ug/dL (37-145) Total Iron Binding Capacity 133 ug/dL (250-400) L Percent Iron Saturation 29 % (15-50) Unsaturated Iron Binding 94 ug/dL (112-346) L Ferritin 706 ng/mL (13-150) H Total Bilirubin 0.4 mg/dL (0.0-1.2) Aspartate Amino Transf (AST/SGOT) 18 U/L (5-40) Alanine Aminotransferase (ALT/SGPT) 7 U/L (3-33) Alkaline Phosphatase 137 U/L (35-104) H Ammonia 29 umol/L (11-51) 19 umol/L (11-51) Total Protein 7.3 g/dL (6.6-8.7) Albumin 3.0 g/dL (3.5-5.2) L Globulin 4.3 g/dL Albumin/Globulin Ratio 0.6 (1.0-2.7) L HIV (1&2) Antibody Rapid Negative (NEGATIVE) Intake and Output 04/20/16 04/21/16 19:00 07:00 Intake Total 670 ml 1030 ml Output Total 2370 ml Balance -1700 ml 1030 ml Intake Oral 120 ml 480 ml IV Total 550 ml 550 ml Hemodialysis UF 2370 ml # Bowel Movements 4 4 Objective General Appearance: WD/WN, no apparent distress, alert EENT: PERRL/EOMI, normal ENT inspection, TMs normal Neck: non-tender, normal alignment, supple Cardiovascular: normal peripheral pulses, normal rate, regular rhythm, no gallop/murmur, no JVD Respiratory/Chest: chest wall non-tender, lungs clear, normal breath sounds, no respiratory distress, no accessory muscle use Abdomen: decreased bowel sounds, distended, guarding, tender Extremities: normal range of motion Edema: moderate edema 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 Await liver studies-see GI note. (3) Abdominal pain (4) Ascites Assessment & Plan: S/P paracentesis (3.6L)-await results. See GI note. (5) ESRD (end stage renal disease) Assessment & Plan: S/P hemodialysis 04/18/16. See nephrology note. (6) HTN (hypertension) Assessment & Plan: Cont coreg and norvasc. (7) CHF (congestive heart failure) Assessment & Plan: see cardiology note. (8) Anemia Assessment & Plan: S/P EGD today 04/21/16. See GI note. (9) Gastritis Assessment & Plan: Cont protonix per GI Status: ADAIR Cobos Apr 21, 2016 18:43
--- NOTE | 2016-04-21 20:08 | Procedure Note ---
SURGEON: Ayush Reyes M.D. PROCEDURE: Upper endoscopy with biopsy. ANESTHESIOLOGIST: . INSTRUMENT: Olympus adult flexible upper endoscope. INDICATION: Cirrhosis and anemia. REASON FOR PROCEDURE: The procedure, risks, benefits, and possible consequences, including hemorrhage, aspiration, perforation and infection, and alternative treatments, were explained to the patient/legal guardian by Dr. Ayush Reyes and the patient/legal guardian understood and accepted these risks. DESCRIPTION OF PROCEDURE: After informed consent was obtained and the patient was adequately sedated, Olympus upper endoscope was advanced from mouth into the second portion of the duodenum and retroflexion was performed in the stomach. This was a limited exam given the patient has some retained food material in the stomach. I do not know if the patient was kept NPO. He eats, if he did not maybe the patient suffers from some gastroparesis. Therefore, the examination of the proximal body of the stomach was limited. There was no active bleeding. No esophageal or no gastric varices were seen. There was diffuse gastritis. Random biopsy from antrum was obtained to rule out H. pylori infection. The patient tolerated the procedure very well without complication. SUMMARY FINDINGS: 1. No obvious large esophageal varices. 2. No gastric varices. 3. Limited examination of the body of the stomach given retained food material in the stomach. 4. Gastritis, status post biopsy. RECOMMENDATIONS: Follow biopsy results and treat accordingly. Ayush Reyes M.D. DR: FREDERICK JOB#: [id number] CC:
[2016-04-21] MEDS: Dextrose 10% 1,000 ML IV SCH (21:30)
[2016-04-21] MEDS: TraZODone 100mg tab ORAL SCH (21:31)
[2016-04-21] MEDS ORDERED: 1/2 NS 1000ml IV ONE (22:48)
[2016-04-21] MEDS ORDERED: Sterile Water Irrig 1000ml IRRIG ONE (22:48)
--- NOTE | 2016-04-21 22:58 | Consultation ---
DATE OF CONSULTATION: 04/21/2016 HEMATOLOGY/ONCOLOGY CONSULTATION CONSULTING PHYSICIAN: Fabrizio Tobar M.D. REQUESTING PHYSICIAN: Bailee Shaw M.D. REASON FOR CONSULTATION: Elevated tumor markers. IDENTIFICATION DATA: Dear Dr. Shaw and Dr. Albright, The patient is a pleasant 61-year-old female with a past medical history significant for end-stage renal disease on hemodialysis three times a day, hypertension, history of liver cirrhosis, alcohol abuse dependence, at this time presents to [facility] with left-sided abdominal distention. She was recently admitted to [facility] in [place] and then transferred to [facility]. At this time, she presents with abdominal pain. She had paracentesis and 3.6 liters were drained. She would like to have an elevated CA-99 of 79 as well as elevated CA-125 of 80. In addition, she had a CT scan was performed, which showed potential sclerosis and metastasis. An Hematology and Oncology Service was consulted to evaluate potential markers. PAST MEDICAL HISTORY: End-stage renal disease on hemodialysis three times a day, history of hypertension, history of liver cirrhosis, and history of alcohol abuse. PAST SURGICAL HISTORY: None noted. MEDICATIONS: Currently Tylenol, Motrin, aspirin, clonidine, vitamin B12, Lovenox, eye drops, nitroglycerin, Protonix, Renvela, Sensipar, tramadol and trazodone. ALLERGIES: No known drug allergies. SOCIAL HISTORY: Resident of [facility]. She uses alcohol. Denies any tobacco use at this time, however, quit three months ago. No illicit drug use. REVIEW OF SYSTEMS: Constitutional: No fever, chills, or night sweats. Skin: No rashes, lumps, or itching. HEENT: No headache, hearing or vision changes. Breasts: No lumps, pain, or discharge. Pulmonary: No cough, sputum, or shortness of breath. Cardiovascular: No chest pain, tightness, or palpitations. Gastrointestinal: No nausea, vomiting, or diarrhea. Genitourinary: No dysuria, frequency, or urgency. Musculoskeletal: No joint swelling or muscle pain. The patient has a . PHYSICAL EXAMINATION: GENERAL: The patient is in no acute distress. VITAL SIGNS: Temperature 98 degrees Fahrenheit, pulse is 94, respiratory rate 12, blood pressure 142/83, and pulse oximetry 92% on room air. PULMONARY: Decreased breath sounds bilaterally. CARDIOVASCULAR: Regular rate. No S3 or S4. ABDOMEN: Soft, nontender, and nondistended. EXTREMITIES: A 1+ edema. LABORATORY DATA: BUN of 35 and creatinine 6.2. INR of 1.6. WBC 12.4, hemoglobin 9.9, hematocrit 31, and platelet count 268,000. Serology reviewed. Hepatitis B core IgM antibody is positive, which may indicate a potential immunity. INR again is 1.6. Pathology from September 23, 2015 were reviewed. Mild anemia. Peripheral smear was ordered at that time. IMAGING STUDIES: Aspiration paracentesis on 04/18/2016 shows successful 2.6 liters of fluid removal paracentesis. CAT scan of the abdomen of 04/17/2016 shows marked ascites, nondilated small bowel, collapse colon rectal and gallbladder thickening. Bilateral end-stage renal disease, Escobedo catheter, pericardial effusion, pulmonary, gallbladder, atelectasis, cardiomegaly, diffuse atherosclerosis, and degenerative spondylosis. Potential metastatic neoplasm on CT scan, however, is unknown. ASSESSMENT: 1. Elevated tumor markers. The patient with a history of elevated tumor markers, CA-99 and CA-125 were elevated. An imaging CT scan shows potential sclerosis versus metastatic neoplasm, metabolic abnormality, in addition 12 mm enhancing nodule noted nonspecific and liver, which will need to be followed up. At this time, I will obtain a skeletal survey as well as peripheral smear in addition to a transvaginal ultrasound to rule out any masses and ovaries. 2. Anemia on chronic kidney disease. 3. A 12 mm nodule. 4. Hypertension. 5. History of alcohol abuse. 6. Abdominal pain. 7. Atelectasis. 8. Pulmonary edema. 9. Ascites. RECOMMENDATION: 1. Obtain skeletal survey to rule out metastatic lesions and bone marrow. 2. Tumor markers have been reviewed in addition to AFTs. 3. Imaging of the liver nodule every six months perhaps hepatology service imaging to rule out nodule every six months, which is 12 mm, which will need to be followed up. 4. Peripheral smear has been ordered. 5. Hemodialysis three times a week. 6. Anemia workup has been not yet ordered, which will be ordered. 7. coagulopathy. 8. HIV ordered. 9. Transvaginal ultrasound ordered to rule out ovarian nodular mass. 10. Discussed with staff. Thank you, Dr. Shaw and Dr. Albright, for this kind referral. Please do not hesitate to contact me with any further questions. Fabrizio Tobar M.D. DR: LEONIDAS JOB#: [id number] CC:
[2016-04-22] VITALS: BP 166/90
[2016-04-22] MEDS: Morphine Sulfate 2mg/ml Inj IVP PRN ×4 (01:33→20:07)
[2016-04-22 04:00] VITALS: BP 134/78
[2016-04-22] MEDS: Lactulose 20gm/30ml UDC ORAL SCH ×3 (05:50→21:40)
[2016-04-22] MEDS: NovoLOG Insulin Flexpen SUBQ SCH ×4 (06:30→21:00)
[2016-04-22 07:46] LABS: BASOPHILS % (AUTO) 0.8 % (0.0-2.0); EOSINOPHILS % (AUTO) 5.3 % (0.0-3.0); MEAN CORPUSCULAR HEMOGLOBIN 30.7 PG (27.0-31.0); MEAN CORPUSCULAR HGB CONC 32.3 G/DL (32.0-36.0); MEAN CORPUSCULAR VOLUME 95 FL (80-99); MEAN PLATELET VOLUME 5.9 FL (6.5-10.1); MONOCYTES % (AUTO) 10.4 % (1.0-10.0); NEUTROPHILS % (AUTO) 60.5 % (45.0-75.0); PLATELET COUNT 151 K/UL (150-450); RED CELL DISTRIBUTION WIDTH 17.5 % (11.6-14.8); WHITE BLOOD COUNT 5.3 K/UL (4.8-10.8)
[2016-04-22 07:59] LABS: ALBUMIN/GLOBULIN RATIO 0.6 (1.0-2.7); CALCIUM 6.7 mg/dL (8.6-10.2); CREATININE 5.8 mg/dL (0.5-0.9); POTASSIUM 4.6 mEQ/L (3.4-4.9); TOTAL PROTEIN 6.5 g/dL (6.6-8.7)
[2016-04-22 08:00] VITALS: BP 139/69
[2016-04-22] MEDS: Heparin 5000 units/ml inj SUBQ SCH ×2 (09:00→21:00)
[2016-04-22] MEDS: Docusate 100mg cap ORAL SCH ×3 (09:00→18:00)
[2016-04-22] MEDS: Carvedilol 25mg Tab ORAL SCH ×2 (09:00→21:38)
[2016-04-22] MEDS: Thiamine 100mg tab ORAL SCH (09:00)
[2016-04-22] MEDS: Rifaximin 550mg tab ORAL SCH ×2 (09:00→21:37)
--- NOTE | 2016-04-22 10:20 | General Progress Note ---
Assessment/Plan Problem List: (1) Elevated tumor markers ICD Codes: R97.8 - Other abnormal tumor markers SNOMED: 197689165 (2) Diabetes ICD Codes: E11.9 - Type 2 diabetes mellitus without complications SNOMED: 02325268 (3) Transaminitis ICD Codes: R74.0 - Nonspecific elevation of levels of transaminase and lactic acid dehydrogenase [LDH] SNOMED: 241600046 (4) Hypothyroidism ICD Codes: E03.9 - Hypothyroidism, unspecified SNOMED: 48296202 (5) Ascites ICD Codes: R18.8 - Other ascites SNOMED: 666804651 Qualifiers: Qualified Codes: R18.8 - Other ascites (6) ESRD (end stage renal disease) ICD Codes: N18.6 - End stage renal disease SNOMED: 41906031 (7) Anemia ICD Codes: D64.9 - Anemia, unspecified SNOMED: 171299436 (8) GERD (gastroesophageal reflux disease) ICD Codes: K21.9 - Gastro-esophageal reflux disease without esophagitis SNOMED: 460905444 (9) HTN (hypertension) ICD Codes: I10 - Essential (primary) hypertension SNOMED: 83080585 Qualifiers: Qualified Codes: I10 - Essential (primary) hypertension (10) Gastritis ICD Codes: K29.70 - Gastritis, unspecified, without bleeding SNOMED: 9486425 Assessment/Plan fu biopsy results fu transvaginal biopsy fu bone survay +/- colonoscopy if needed fu H&H transfuse PRN Subjective ROS Limited/Unobtainable: Yes Allergies: Coded Allergies: No Known Allergies (Unverified , 09/20/15) Subjective no event Objective Last 24 Hour Vital Signs Date Time Temp Pulse Resp B/P Pulse Ox O2 Delivery O2 Flow Rate FiO2 04/22/16 09:00 85 139/69 04/22/16 09:00 85 139/69 04/22/16 08:21 97.7 04/22/16 08:20 Room Air 04/22/16 08:00 97.7 85 18 139/69 100 Room Air 04/22/16 07:42 86 18 Room Air 04/22/16 04:00 97.0 88 18 134/78 96 Room Air 04/22/16 00:00 97.7 95 20 166/90 98 Room Air 04/21/16 21:31 94 161/91 04/21/16 20:00 97.7 97 20 161/91 96 Room Air 04/21/16 19:29 92 18 Nasal Cannula 2.0 28 04/21/16 17:37 98.1 04/21/16 17:07 98.1 99 22 149/78 94 Room Air 04/21/16 16:00 98.1 99 22 149/78 94 Room Air 04/21/16 12:22 90 18 97 04/21/16 12:20 99.0 90 18 123/79 97 Room Air 04/21/16 12:00 90 24 118/78 98 Room Air 04/21/16 11:55 91 22 113/85 96 Room Air 04/21/16 11:53 90 20 100 04/21/16 11:50 99.3 90 18 100/68 98 Room Air Intake and Output 04/21/16 04/22/16 19:00 07:00 Intake Total 850 ml 425 ml Output Total 0 ml Balance 850 ml 425 ml IV Total 850 ml 425 ml Estimated Blood Loss 0 ml # Voids 1 # Bowel Movements 3 Laboratory Tests 04/21/16 15:20: Ammonia 19 04/22/16 05:30: White Blood Count 5.3, Red Blood Count 2.80L, Hemoglobin 8.6L, Hematocrit 26.7L , Mean Corpuscular Volume 95, Mean Corpuscular Hemoglobin 30.7, Mean Corpuscular Hemoglobin Concent 32.3, Red Cell Distribution Width 17.5H, Platelet Count 151, Mean Platelet Volume 5.9L, Neutrophils (%) (Auto) 60.5, Lymphocytes (%) (Auto) 23.0, Monocytes (%) (Auto) 10.4H, Eosinophils (%) (Auto) 5.3H, Basophils (%) (Auto) 0.8, Sodium Level 132L, Potassium Level 4.6, Chloride Level 88L, Carbon Dioxide Level 30, Anion Gap 14, Blood Urea Nitrogen 26H, Creatinine 5.8H, Estimat Glomerular Filtration Rate 9.0, Glucose Level 81, Calcium Level 6.7L, Total Bilirubin 0.4, Aspartate Amino Transf (AST/SGOT) 15, Alanine Aminotransferase (ALT/SGPT) 5, Alkaline Phosphatase 109H, Total Protein 6.5L, Albumin 2.5L, Globulin 4.0, Albumin/Globulin Ratio 0.6L Height (Feet): 5 Height (Inches): 5.00 Weight (Pounds): 140 General Appearance: no apparent distress EENT: normal ENT inspection Neck: supple Cardiovascular: normal rate Respiratory/Chest: decreased breath sounds Abdomen: normal bowel sounds, non tender, soft Extremities: non-tender GEOVANNY RAMIREZ Apr 22, 2016 10:20
[2016-04-22 12:00] VITALS: BP 143/74
[2016-04-22] MEDS: Dextrose 10% 1,000 ML IV SCH (13:59)
--- NOTE | 2016-04-22 15:00 | Internal Med Progress Note ---
Subjective Date of Service: Apr 22, 2016 Physician Name Javier Alvarez Attending Physician Jackson Albright MD Current Medications Medications (Trade) Dose Ordered Sig/Ranjan Route PRN Reason Start Time Stop Time Status Last Admin Dose Admin Acetaminophen (Tylenol) 650 mg Q6H PRN ORAL Prn Headache/Temp > 101 04/20/16 04:15 05/20/16 04:14 04/21/16 16:38 Albuterol/ Ipratropium (DuoNeb 0.5-3(2.5)mg/3ml) 3 ml Q6H PRN HHN dyspnea 04/20/16 08:30 04/25/16 08:29 Amlodipine Besylate (Norvasc) 10 mg DAILY ORAL 04/20/16 09:00 05/20/16 08:59 Aspirin (ASA) 325 mg DAILY ORAL 04/20/16 09:00 05/20/16 08:59 Carvedilol (Coreg) 25 mg EVERY 12 HOURS ORAL 04/20/16 09:00 05/20/16 08:59 04/21/16 21:31 Clonidine HCl (Catapres) 0.1 mg Q4H PRN ORAL For High Blood Pressure 04/20/16 06:30 05/20/16 06:29 Dextrose (D10w) 1,000 ml @ 50 mls/hr Q20H IV 04/20/16 03:15 05/20/16 03:14 04/22/16 13:59 Dextrose (Dextrose 50%) STAT PRN IV Hypoglycemia 04/20/16 14:30 05/20/16 14:29 Docusate Sodium (Colace) 100 mg TID ORAL 04/20/16 09:00 05/20/16 08:59 Heparin Sodium (Porcine) (Heparin 5000 units/ml) 5,000 units EVERY 12 HOURS SUBQ 04/20/16 09:00 05/20/16 08:59 04/21/16 21:40 Insulin Aspart (NovoLOG) BEFORE MEALS AND HS SUBQ 04/20/16 06:30 05/20/16 06:29 04/21/16 17:36 Lactulose (Cephulac) 20 gm Q8HR ORAL 04/20/16 06:00 05/20/16 05:59 04/22/16 05:50 Metoclopramide HCl (Reglan) 5 mg TIAC ORAL 04/20/16 06:30 05/20/16 06:29 04/22/16 05:50 Morphine Sulfate (Morphine Sulfate) 1 mg Q4H PRN IVP For Pain 04/20/16 06:30 04/27/16 06:29 04/22/16 14:31 Ondansetron HCl (Zofran) 4 mg Q6H PRN IVP Nausea & Vomiting 04/20/16 08:30 05/20/16 08:29 Pantoprazole (Protonix) 40 mg DAILY ORAL 04/20/16 09:00 05/20/16 08:59 Polyethylene Glycol (Miralax) 17 gm HSPRN PRN ORAL Constipation 04/20/16 14:30 05/20/16 14:29 Rifaximin (Xifaxan) 550 mg EVERY 12 HOURS ORAL 04/20/16 09:00 04/27/16 08:59 04/21/16 21:30 Sevelamer Carbonate (Renvela) 1,600 mg TIAC ORAL 04/20/16 06:30 05/20/16 06:29 04/22/16 05:50 Thiamine HCl (Vitamin B1) 100 mg DAILY ORAL 04/20/16 09:00 05/20/16 08:59 Trazodone HCl (Desyrel) 100 mg BEDTIME ORAL 04/20/16 21:00 05/20/16 20:59 04/21/16 21:31 Zolpidem Tartrate (Ambien) 5 mg HSPRN PRN ORAL Insomnia 04/20/16 14:30 05/20/16 14:29 Allergies: Coded Allergies: No Known Allergies (Unverified , 09/20/15) ROS Limited/Unobtainable: No Constitutional: Reports: no symptoms HEENT: Reports: no symptoms Cardiovascular: Reports: no symptoms Respiratory: Reports: no symptoms Gastrointestinal/Abdominal: Reports: abdomen distended, abdominal pain Genitourinary: Reports: no symptoms Neurologic/Psychiatric: Reports: no symptoms Subjective 61 YO F admitted with abdominal distention and pain. Now ascites. Cover for Int [facility]-Dr Albright. S/P paracentesis 04/18/16. S/P EGD 04/21/16. Objective Last Vital Signs Date Time Temp Pulse Resp B/P Pulse Ox O2 Delivery O2 Flow Rate FiO2 04/22/16 12:00 97.7 91 19 143/74 96 Room Air 04/21/16 19:29 2.0 28 Laboratory Tests Test 04/21/16 15:20 04/22/16 05:30 Ammonia 19 umol/L (11-51) White Blood Count 5.3 K/UL (4.8-10.8) Red Blood Count 2.80 M/UL (4.20-5.40) L Hemoglobin 8.6 G/DL (12.0-16.0) L Hematocrit 26.7 % (37.0-47.0) L Mean Corpuscular Volume 95 FL (80-99) Mean Corpuscular Hemoglobin 30.7 PG (27.0-31.0) Mean Corpuscular Hemoglobin Concent 32.3 G/DL (32.0-36.0) Red Cell Distribution Width 17.5 % (11.6-14.8) H Platelet Count 151 K/UL (150-450) Mean Platelet Volume 5.9 FL (6.5-10.1) L Neutrophils (%) (Auto) 60.5 % (45.0-75.0) Lymphocytes (%) (Auto) 23.0 % (20.0-45.0) Monocytes (%) (Auto) 10.4 % (1.0-10.0) H Eosinophils (%) (Auto) 5.3 % (0.0-3.0) H Basophils (%) (Auto) 0.8 % (0.0-2.0) Sodium Level 132 mEQ/L (135-145) L Potassium Level 4.6 mEQ/L (3.4-4.9) Chloride Level 88 mEQ/L (98-107) L Carbon Dioxide Level 30 mEQ/L (20-30) Anion Gap 14 (5-15) Blood Urea Nitrogen 26 mg/dL (7-23) H Creatinine 5.8 mg/dL (0.5-0.9) H Estimat Glomerular Filtration Rate 9.0 mL/min (>60) Glucose Level 81 mg/dL (74-106) Calcium Level 6.7 mg/dL (8.6-10.2) L Total Bilirubin 0.4 mg/dL (0.0-1.2) Aspartate Amino Transf (AST/SGOT) 15 U/L (5-40) Alanine Aminotransferase (ALT/SGPT) 5 U/L (3-33) Alkaline Phosphatase 109 U/L (35-104) H Total Protein 6.5 g/dL (6.6-8.7) L Albumin 2.5 g/dL (3.5-5.2) L Globulin 4.0 g/dL Albumin/Globulin Ratio 0.6 (1.0-2.7) L Intake and Output 04/21/16 04/22/16 19:00 07:00 Intake Total 850 ml 475 ml Output Total 0 ml Balance 850 ml 475 ml IV Total 850 ml 475 ml Estimated Blood Loss 0 ml # Voids 1 # Bowel Movements 3 Objective General Appearance: WD/WN, no apparent distress, alert EENT: PERRL/EOMI, normal ENT inspection, TMs normal Neck: non-tender, normal alignment, supple Cardiovascular: normal peripheral pulses, normal rate, regular rhythm, no gallop/murmur, no JVD Respiratory/Chest: chest wall non-tender, lungs clear, normal breath sounds, no respiratory distress, no accessory muscle use Abdomen: decreased bowel sounds, distended, guarding, tender Extremities: normal range of motion Edema: moderate edema Neurologic: assistant drafter II-XII grossly normal Skin: normal pigmentation, warm/dry Assessment/Plan Problem List: (1) Cirrhosis of liver (2) Abnormal LFTs Assessment & Plan: See GI note-Dr Reyes. Await liver studies-see GI note. (3) Abdominal pain (4) Ascites Assessment & Plan: S/P paracentesis (3.6L)-await results. See GI note. (5) ESRD (end stage renal disease) Assessment & Plan: S/P hemodialysis 04/20/16. See nephrology note. (6) HTN (hypertension) Assessment & Plan: Cont coreg and norvasc. (7) CHF (congestive heart failure) Assessment & Plan: see cardiology note. (8) Anemia Assessment & Plan: S/P EGD 04/21/16. See GI note. (9) Gastritis Assessment & Plan: Cont protonix per GI Status: not improved JAVIER ALVAREZ Apr 22, 2016 15:00
--- NOTE | 2016-04-22 16:15 | Cardiology Progress Note ---
Assessment/Plan Status: stable, unchanged Status Narrative Pt w/ severe pulm hypertension by echo this adm, end stage renal dis, on HD, and abd pain. She now has hemoptysis, ? due to pulm htn, ? infection hg dec from 9.9 to 8.6 today Assessment/Plan Will check cxr - r/o infiltrate Cont to monitor h/h Fluid removal w/ HD. Check urine c/s Subjective ROS Limited/Unobtainable: No Subjective c/o hemoptysis and lower abd pain Objective Last 24 Hour Vital Signs Date Time Temp Pulse Resp B/P Pulse Ox O2 Delivery O2 Flow Rate FiO2 04/22/16 15:01 97.7 04/22/16 12:00 97.7 91 19 143/74 96 Room Air 04/22/16 11:30 Room Air 04/22/16 09:00 85 139/69 04/22/16 09:00 85 139/69 04/22/16 08:20 Room Air 04/22/16 08:00 97.7 85 18 139/69 100 Room Air 04/22/16 07:42 86 18 Room Air 04/22/16 04:00 97.0 88 18 134/78 96 Room Air 04/22/16 00:00 97.7 95 20 166/90 98 Room Air 04/21/16 21:31 94 161/91 04/21/16 20:00 97.7 97 20 161/91 96 Room Air 04/21/16 19:29 92 18 Nasal Cannula 2.0 28 04/21/16 17:37 98.1 04/21/16 17:07 98.1 99 22 149/78 94 Room Air General Appearance: WD/WN, alert, mild distress EENT: PERRL/EOMI Neck: non-tender, supple, no JVD Rhythm: NSR Cardiovascular: normal rate, regular rhythm, no gallop/murmur Respiratory/Chest: lungs clear Abdomen: soft, other - + suprapubic tenderness Extremities: no swelling Intake and Output 04/21/16 04/22/16 19:00 07:00 Intake Total 850 ml 475 ml Output Total 0 ml Balance 850 ml 475 ml IV Total 850 ml 475 ml Estimated Blood Loss 0 ml # Voids 1 # Bowel Movements 3 Laboratory Tests Test 04/22/16 05:30 White Blood Count 5.3 K/UL (4.8-10.8) Red Blood Count 2.80 M/UL (4.20-5.40) L Hemoglobin 8.6 G/DL (12.0-16.0) L Hematocrit 26.7 % (37.0-47.0) L Mean Corpuscular Volume 95 FL (80-99) Mean Corpuscular Hemoglobin 30.7 PG (27.0-31.0) Mean Corpuscular Hemoglobin Concent 32.3 G/DL (32.0-36.0) Red Cell Distribution Width 17.5 % (11.6-14.8) H Platelet Count 151 K/UL (150-450) Mean Platelet Volume 5.9 FL (6.5-10.1) L Neutrophils (%) (Auto) 60.5 % (45.0-75.0) Lymphocytes (%) (Auto) 23.0 % (20.0-45.0) Monocytes (%) (Auto) 10.4 % (1.0-10.0) H Eosinophils (%) (Auto) 5.3 % (0.0-3.0) H Basophils (%) (Auto) 0.8 % (0.0-2.0) Sodium Level 132 mEQ/L (135-145) L Potassium Level 4.6 mEQ/L (3.4-4.9) Chloride Level 88 mEQ/L (98-107) L Carbon Dioxide Level 30 mEQ/L (20-30) Anion Gap 14 (5-15) Blood Urea Nitrogen 26 mg/dL (7-23) H Creatinine 5.8 mg/dL (0.5-0.9) H Estimat Glomerular Filtration Rate 9.0 mL/min (>60) Glucose Level 81 mg/dL (74-106) Calcium Level 6.7 mg/dL (8.6-10.2) L Total Bilirubin 0.4 mg/dL (0.0-1.2) Aspartate Amino Transf (AST/SGOT) 15 U/L (5-40) Alanine Aminotransferase (ALT/SGPT) 5 U/L (3-33) Alkaline Phosphatase 109 U/L (35-104) H Total Protein 6.5 g/dL (6.6-8.7) L Albumin 2.5 g/dL (3.5-5.2) L Globulin 4.0 g/dL Albumin/Globulin Ratio 0.6 (1.0-2.7) KARON MEDINA Apr 22, 2016 16:15
--- NOTE | 2016-04-22 18:15 | General Progress Note ---
Assessment/Plan Assessment/Plan ASSESSMENT: 1. Elevated tumor markers. The patient with a history of elevated tumor markers, CA-99 and CA-125 were elevated. An imaging CT scan shows potential sclerosis versus metastatic neoplasm, metabolic abnormality, in addition 12 mm enhancing nodule noted nonspecific and liver, which will need to be followed up. At this time, I will obtain a skeletal survey as well as peripheral smear in addition to a transvaginal ultrasound to rule out any masses and ovaries. 2. Anemia on chronic kidney disease. 3. A 12 mm nodule. 4. Hypertension. 5. History of alcohol abuse. 6. Abdominal pain. 7. Atelectasis. 8. Pulmonary edema. 9. Ascites. RECOMMENDATION: 1. Obtain skeletal survey to rule out metastatic lesions and bone marrow. 2. Tumor markers have been reviewed in addition to AFTs. 3. Imaging of the liver nodule every six months perhaps hepatology service imaging to rule out nodule every six months, which is 12 mm, which will need to be followed up. 4. Peripheral smear has been ordered. 5. Hemodialysis three times a week. 6. Anemia workup has been not yet ordered, which will be ordered. 7. Mild coagulopathy. 8. HIV ordered. 9. Transvaginal ultrasound ordered to rule out ovarian nodular mass. 10. Discussed with staff. Carleen Tobar M.D. Subjective Constitutional: Reports: no symptoms HEENT: Reports: no symptoms Cardiovascular: Reports: no symptoms Respiratory: Reports: no symptoms Gastrointestinal/Abdominal: Reports: no symptoms Genitourinary: Reports: no symptoms Neurologic/Psychiatric: Reports: no symptoms Endocrine: Reports: no symptoms Allergies: Coded Allergies: No Known Allergies (Unverified , 09/20/15) Objective Last 24 Hour Vital Signs Date Time Temp Pulse Resp B/P Pulse Ox O2 Delivery O2 Flow Rate FiO2 04/22/16 15:01 97.7 04/22/16 12:00 97.7 91 19 143/74 96 Room Air 04/22/16 11:30 Room Air 04/22/16 09:00 85 139/69 04/22/16 09:00 85 139/69 04/22/16 08:20 Room Air 04/22/16 08:00 97.7 85 18 139/69 100 Room Air 04/22/16 07:42 86 18 Room Air 04/22/16 04:00 97.0 88 18 134/78 96 Room Air 04/22/16 00:00 97.7 95 20 166/90 98 Room Air 04/21/16 21:31 94 161/91 04/21/16 20:00 97.7 97 20 161/91 96 Room Air 04/21/16 19:29 92 18 Nasal Cannula 2.0 28 Intake and Output 04/21/16 04/22/16 19:00 07:00 Intake Total 850 ml 475 ml Output Total 0 ml Balance 850 ml 475 ml IV Total 850 ml 475 ml Estimated Blood Loss 0 ml # Voids 1 # Bowel Movements 3 Laboratory Tests 04/22/16 05:30: White Blood Count 5.3, Red Blood Count 2.80L, Hemoglobin 8.6L, Hematocrit 26.7L , Mean Corpuscular Volume 95, Mean Corpuscular Hemoglobin 30.7, Mean Corpuscular Hemoglobin Concent 32.3, Red Cell Distribution Width 17.5H, Platelet Count 151, Mean Platelet Volume 5.9L, Neutrophils (%) (Auto) 60.5, Lymphocytes (%) (Auto) 23.0, Monocytes (%) (Auto) 10.4H, Eosinophils (%) (Auto) 5.3H, Basophils (%) (Auto) 0.8, Sodium Level 132L, Potassium Level 4.6, Chloride Level 88L, Carbon Dioxide Level 30, Anion Gap 14, Blood Urea Nitrogen 26H, Creatinine 5.8H, Estimat Glomerular Filtration Rate 9.0, Glucose Level 81, Calcium Level 6.7L, Total Bilirubin 0.4, Aspartate Amino Transf (AST/SGOT) 15, Alanine Aminotransferase (ALT/SGPT) 5, Alkaline Phosphatase 109H, Total Protein 6.5L, Albumin 2.5L, Globulin 4.0, Albumin/Globulin Ratio 0.6L Height (Feet): 5 Height (Inches): 5.00 Weight (Pounds): 140 General Appearance: alert EENT: TMs normal Neck: supple Cardiovascular: normal rate Respiratory/Chest: lungs clear Abdomen: soft Edema: no edema noted Arm (L), no edema noted Arm (R), no edema noted Leg (L), no edema noted Leg (R), no edema noted Pedal (L), no edema noted Pedal (R), no edema noted Generalized Edema: mild edema Lymphatic: normal anterior cervical (L), normal anterior cervical (R), normal axillary (L), normal axillary (R), normal inguinal (L), normal inguinal (R), normal other, normal posterior cervical (L), normal posterior cervical (R), normal submandibular (L), normal submandibular (R), normal supraclavicular (L), normal supraclavicular (R) CARLEEN TOBAR Apr 22, 2016 18:15
--- NOTE | 2016-04-22 18:54 | Pulmonology Progress Note ---
Assessment/Plan Assessment/Plan ASSESSMENT pulmonary edema CHF, diastolic dysfunction dyspnea 2 to diastolic dysfunction and ascites pleural effusion severe pulmonary HTN HTN valvular heart disease ( AR, TR) pericardial effusion abdominal pain hx of ETOH abuse ascites, s/p paracentesis-3.6 L elevated tumor markers, likely malignant process anemia elevated transaminase hepatitis B hepatic encephalopathy symptomatic weight loss ESRD, on HD DM elevated TSH PLAN OF CARE O2 HHN CXR with bilateral congestive changes, AMERICA atelectasis, fup with CXR ECHO with EF 70%, significant LVH and RVSP of 60 c/w severe pulmonary HTN, small to moderate pericardial effusion, moderate TR, small AR BP management with BB and CCB, optimize as needed CT A/P with marked ascites ; s/p paracentesis -3.6 L GI follows elevated tumor markers: Ca 125, Ca 19-9. mil elevation in CEA, AFP WNL onco seen patient earlier bone scan and TV US pending fup with ascitic fluid cytology hepatitis panel + hep B monitor HH, transfuse prn stool OB s/p EGD 04/21 with finding of gastritis PPI bowel regimen nephro follows, HD per nephro, monitor renal parameters, lytes continue lactulose and Xifaxan , check ammonia BS management with SS of insulin, HgA1c -5.2 case discussed and evaluated by supervising physician PLAN OF CARE Subjective Allergies: Coded Allergies: No Known Allergies (Unverified , 09/20/15) Subjective s/p endoscopy 04/21 afebrile, no leukocytosis on RA pulse oximetry stable Objective Last 24 Hour Vital Signs Date Time Temp Pulse Resp B/P Pulse Ox O2 Delivery O2 Flow Rate FiO2 04/22/16 15:01 97.7 04/22/16 12:00 97.7 91 19 143/74 96 Room Air 04/22/16 11:30 Room Air 04/22/16 09:00 85 139/69 04/22/16 09:00 85 139/69 04/22/16 08:20 Room Air 04/22/16 08:00 97.7 85 18 139/69 100 Room Air 04/22/16 07:42 86 18 Room Air 04/22/16 04:00 97.0 88 18 134/78 96 Room Air 04/22/16 00:00 97.7 95 20 166/90 98 Room Air 04/21/16 21:31 94 161/91 04/21/16 20:00 97.7 97 20 161/91 96 Room Air 04/21/16 19:29 92 18 Nasal Cannula 2.0 28 Intake and Output 04/21/16 04/22/16 19:00 07:00 Intake Total 850 ml 475 ml Output Total 0 ml Balance 850 ml 475 ml IV Total 850 ml 475 ml Estimated Blood Loss 0 ml # Voids 1 # Bowel Movements 3 Objective General Appearance: WD/WN, no apparent distress, alert, responsive EENT: PERRL/EOMI, normal ENT inspection, TMs normal Neck: non-tender, normal alignment, supple Cardiovascular: normal peripheral pulses, normal rate, regular rhythm, no gallop/murmur, no JVD Respiratory/Chest: chest wall non-tender, lungs clear, no respiratory distress , no accessory muscle use Abdomen: hypoactive bowel sounds, distended, nontender Extremities: normal range of motion Edema: moderate edema Neurologic: gas leak inspector II-XII grossly normal Skin: normal pigmentation, warm/dry Laboratory Tests 04/22/16 05:30: White Blood Count 5.3, Red Blood Count 2.80L, Hemoglobin 8.6L, Hematocrit 26.7L , Mean Corpuscular Volume 95, Mean Corpuscular Hemoglobin 30.7, Mean Corpuscular Hemoglobin Concent 32.3, Red Cell Distribution Width 17.5H, Platelet Count 151, Mean Platelet Volume 5.9L, Neutrophils (%) (Auto) 60.5, Lymphocytes (%) (Auto) 23.0, Monocytes (%) (Auto) 10.4H, Eosinophils (%) (Auto) 5.3H, Basophils (%) (Auto) 0.8, Sodium Level 132L, Potassium Level 4.6, Chloride Level 88L, Carbon Dioxide Level 30, Anion Gap 14, Blood Urea Nitrogen 26H, Creatinine 5.8H, Estimat Glomerular Filtration Rate 9.0, Glucose Level 81, Calcium Level 6.7L, Total Bilirubin 0.4, Aspartate Amino Transf (AST/SGOT) 15, Alanine Aminotransferase (ALT/SGPT) 5, Alkaline Phosphatase 109H, Total Protein 6.5L, Albumin 2.5L, Globulin 4.0, Albumin/Globulin Ratio 0.6L Current Medications Medications (Trade) Dose Ordered Sig/Ranjan Route PRN Reason Start Time Stop Time Status Last Admin Dose Admin Acetaminophen (Tylenol) 650 mg Q6H PRN ORAL Prn Headache/Temp > 101 04/20/16 04:15 05/20/16 04:14 04/21/16 16:38 Albuterol/ Ipratropium (DuoNeb 0.5-3(2.5)mg/3ml) 3 ml Q6H PRN HHN dyspnea 04/20/16 08:30 04/25/16 08:29 Amlodipine Besylate (Norvasc) 10 mg DAILY ORAL 04/20/16 09:00 05/20/16 08:59 Aspirin (ASA) 325 mg DAILY ORAL 04/20/16 09:00 05/20/16 08:59 Carvedilol (Coreg) 25 mg EVERY 12 HOURS ORAL 04/20/16 09:00 05/20/16 08:59 04/21/16 21:31 Clonidine HCl (Catapres) 0.1 mg Q4H PRN ORAL For High Blood Pressure 04/20/16 06:30 05/20/16 06:29 Dextrose (D10w) 1,000 ml @ 50 mls/hr Q20H IV 04/20/16 03:15 05/20/16 03:14 04/22/16 13:59 Dextrose (Dextrose 50%) STAT PRN IV Hypoglycemia 04/20/16 14:30 05/20/16 14:29 Docusate Sodium (Colace) 100 mg TID ORAL 04/20/16 09:00 05/20/16 08:59 Heparin Sodium (Porcine) (Heparin 5000 units/ml) 5,000 units EVERY 12 HOURS SUBQ 04/20/16 09:00 05/20/16 08:59 04/21/16 21:40 Insulin Aspart (NovoLOG) BEFORE MEALS AND HS SUBQ 04/20/16 06:30 05/20/16 06:29 04/21/16 17:36 Lactulose (Cephulac) 20 gm Q8HR ORAL 04/20/16 06:00 05/20/16 05:59 04/22/16 05:50 Metoclopramide HCl (Reglan) 5 mg TIAC ORAL 04/20/16 06:30 05/20/16 06:29 04/22/16 17:27 Morphine Sulfate (Morphine Sulfate) 1 mg Q4H PRN IVP For Pain 04/20/16 06:30 04/27/16 06:29 04/22/16 14:31 Ondansetron HCl (Zofran) 4 mg Q6H PRN IVP Nausea & Vomiting 04/20/16 08:30 05/20/16 08:29 Pantoprazole (Protonix) 40 mg DAILY ORAL 04/20/16 09:00 05/20/16 08:59 Polyethylene Glycol (Miralax) 17 gm HSPRN PRN ORAL Constipation 04/20/16 14:30 05/20/16 14:29 Rifaximin (Xifaxan) 550 mg EVERY 12 HOURS ORAL 04/20/16 09:00 04/27/16 08:59 04/21/16 21:30 Sevelamer Carbonate (Renvela) 1,600 mg TIAC ORAL 04/20/16 06:30 05/20/16 06:29 04/22/16 17:27 Thiamine HCl (Vitamin B1) 100 mg DAILY ORAL 04/20/16 09:00 05/20/16 08:59 Trazodone HCl (Desyrel) 100 mg BEDTIME ORAL 04/20/16 21:00 05/20/16 20:59 04/21/16 21:31 Zolpidem Tartrate (Ambien) 5 mg HSPRN PRN ORAL Insomnia 04/20/16 14:30 05/20/16 14:29 Patti Johnston NP ([facility]anchtein) Apr 22, 2016 18:54
[2016-04-22 20:00] VITALS: BP 169/89
[2016-04-22] MEDS: TraZODone 100mg tab ORAL SCH (21:38)
[2016-04-23] VITALS: BP 121/65
[2016-04-23] MEDS: Morphine Sulfate 2mg/ml Inj IVP PRN ×4 (01:10→21:38)
[2016-04-23 04:00] VITALS: BP 139/77
[2016-04-23] MEDS: Lactulose 20gm/30ml UDC ORAL SCH ×3 (06:19→21:37)
[2016-04-23] MEDS: NovoLOG Insulin Flexpen SUBQ SCH ×4 (06:28→21:00)
--- NOTE | 2016-04-23 07:30 | General Progress Note ---
Assessment/Plan Assessment/Plan ASSESSMENT: 1. Elevated tumor markers. The patient with a history of elevated tumor markers , CA-99 and CA-125 were elevated. An imaging CT scan shows potential sclerosis versus metastatic neoplasm, metabolic abnormality, in addition 12 mm enhancing nodule noted nonspecific and liver, which will need to be followed up. At this time, I will obtain a skeletal survey as well as peripheral smear in addition to a transvaginal ultrasound to rule out any masses and ovaries. HIV is negative 2. Anemia on chronic kidney disease. on epo 3. 12 mm nodule, liver 4. Hypertension. 5. History of alcohol abuse. 6. Abdominal pain. 7. Atelectasis. 8. Pulmonary edema. 9. Ascites. RECOMMENDATION: 1. Obtain skeletal survey to rule out metastatic lesions 2. Continue epogen (began 04/23/16) 3. Imaging of the liver nodule every six months perhaps hepatology service imaging to rule out nodule every six months, which is 12 mm, which will need to be followed up. 4. Peripheral smear has been ordered. 5. Hemodialysis three times a week. 6. Anemia workup reviewed, ferritin 706 7. Monitor coagulopathy. 8. Transvaginal ultrasound ordered to rule out ovarian nodular mass. 9. Discussed with staff. Thank you, Fabrizio Tobar MD Subjective Constitutional: Reports: no symptoms HEENT: Reports: no symptoms Cardiovascular: Reports: no symptoms Respiratory: Reports: no symptoms Gastrointestinal/Abdominal: Reports: no symptoms Genitourinary: Reports: burning Neurologic/Psychiatric: Reports: no symptoms Endocrine: Reports: no symptoms Hematologic/Lymphatic: Reports: anemia Allergies: Coded Allergies: No Known Allergies (Unverified , 09/20/15) Subjective stable, no events overnight, has been doing better Objective Last 24 Hour Vital Signs Date Time Temp Pulse Resp B/P Pulse Ox O2 Delivery O2 Flow Rate FiO2 04/23/16 04:00 98.4 88 22 139/77 Room Air 04/23/16 02:13 97.5 04/23/16 00:00 100.9 98 22 121/65 100 04/22/16 21:38 102 169/89 04/22/16 20:00 95.7 102 22 169/89 91 Room Air 04/22/16 19:24 90 18 Room Air 04/22/16 15:01 97.7 04/22/16 12:00 97.7 91 19 143/74 96 Room Air 04/22/16 11:30 Room Air 04/22/16 09:00 85 139/69 04/22/16 09:00 85 139/69 04/22/16 08:20 Room Air 04/22/16 08:00 97.7 85 18 139/69 100 Room Air 04/22/16 07:42 86 18 Room Air Intake and Output 04/22/16 04/23/16 19:00 07:00 Intake Total 540 ml 300 ml Output Total 3055 ml Balance -2515 ml 300 ml Intake Oral 240 ml IV Total 300 ml 300 ml Hemodialysis UF 3055 ml # Voids 1 # Bowel Movements 1 Laboratory Tests 04/23/16 05:10: White Blood Count [Pending], Red Blood Count [Pending], Hemoglobin [Pending], Hematocrit [Pending], Mean Corpuscular Volume [Pending], Mean Corpuscular Hemoglobin [Pending], Mean Corpuscular Hemoglobin Concent [Pending], Red Cell Distribution Width [Pending], Platelet Count [Pending], Mean Platelet Volume [ Pending], Neutrophils (%) (Auto) [Pending], Lymphocytes (%) (Auto) [Pending], Monocytes (%) (Auto) [Pending], Eosinophils (%) (Auto) [Pending], Basophils (%) (Auto) [Pending], Sodium Level [Pending], Potassium Level [Pending], Chloride Level [Pending], Carbon Dioxide Level [Pending], Blood Urea Nitrogen [Pending], Creatinine [Pending], Estimat Glomerular Filtration Rate [Pending], Glucose Level [Pending], Calcium Level [Pending] Height (Feet): 5 Height (Inches): 5.00 Weight (Pounds): 140 General Appearance: no apparent distress EENT: TMs normal Neck: supple Cardiovascular: regular rhythm Respiratory/Chest: normal breath sounds Extremities: non-tender Edema: 1+ Leg (L), 1+ Leg (R) Edema: mild edema Neurologic: alert Skin: warm/dry Fabrizio Tobar Apr 23, 2016 07:30
--- NOTE | 2016-04-23 07:32 | General Progress Note ---
Assessment/Plan Problem List: (1) Elevated tumor markers ICD Codes: R97.8 - Other abnormal tumor markers SNOMED: 044754100 (2) Diabetes ICD Codes: E11.9 - Type 2 diabetes mellitus without complications SNOMED: 59368272 (3) Transaminitis ICD Codes: R74.0 - Nonspecific elevation of levels of transaminase and lactic acid dehydrogenase [LDH] SNOMED: 517522141 (4) Hypothyroidism ICD Codes: E03.9 - Hypothyroidism, unspecified SNOMED: 33322524 (5) Ascites ICD Codes: R18.8 - Other ascites SNOMED: 546498623 Qualifiers: Qualified Codes: R18.8 - Other ascites (6) ESRD (end stage renal disease) ICD Codes: N18.6 - End stage renal disease SNOMED: 35047726 (7) Anemia ICD Codes: D64.9 - Anemia, unspecified SNOMED: 671184610 (8) GERD (gastroesophageal reflux disease) ICD Codes: K21.9 - Gastro-esophageal reflux disease without esophagitis SNOMED: 581383487 (9) HTN (hypertension) ICD Codes: I10 - Essential (primary) hypertension SNOMED: 02576544 Qualifiers: Qualified Codes: I10 - Essential (primary) hypertension (10) Gastritis ICD Codes: K29.70 - Gastritis, unspecified, without bleeding SNOMED: 1943731 Assessment/Plan fu biopsy results fu transvaginal biopsy fu bone survay +/- colonoscopy if needed fu H&H transfuse PRN Subjective ROS Limited/Unobtainable: Yes Allergies: Coded Allergies: No Known Allergies (Unverified , 09/20/15) Subjective no event Objective Last 24 Hour Vital Signs Date Time Temp Pulse Resp B/P Pulse Ox O2 Delivery O2 Flow Rate FiO2 04/23/16 04:00 98.4 88 22 139/77 Room Air 04/23/16 02:13 97.5 04/23/16 00:00 100.9 98 22 121/65 100 04/22/16 21:38 102 169/89 04/22/16 20:00 95.7 102 22 169/89 91 Room Air 04/22/16 19:24 90 18 Room Air 04/22/16 15:01 97.7 04/22/16 12:00 97.7 91 19 143/74 96 Room Air 04/22/16 11:30 Room Air 04/22/16 09:00 85 139/69 04/22/16 09:00 85 139/69 04/22/16 08:20 Room Air 04/22/16 08:00 97.7 85 18 139/69 100 Room Air 04/22/16 07:42 86 18 Room Air Intake and Output 04/22/16 04/23/16 19:00 07:00 Intake Total 540 ml 300 ml Output Total 3055 ml Balance -2515 ml 300 ml Intake Oral 240 ml IV Total 300 ml 300 ml Hemodialysis UF 3055 ml # Voids 1 # Bowel Movements 1 Laboratory Tests 04/23/16 05:10: White Blood Count [Pending], Red Blood Count [Pending], Hemoglobin [Pending], Hematocrit [Pending], Mean Corpuscular Volume [Pending], Mean Corpuscular Hemoglobin [Pending], Mean Corpuscular Hemoglobin Concent [Pending], Red Cell Distribution Width [Pending], Platelet Count [Pending], Mean Platelet Volume [ Pending], Neutrophils (%) (Auto) [Pending], Lymphocytes (%) (Auto) [Pending], Monocytes (%) (Auto) [Pending], Eosinophils (%) (Auto) [Pending], Basophils (%) (Auto) [Pending], Sodium Level [Pending], Potassium Level [Pending], Chloride Level [Pending], Carbon Dioxide Level [Pending], Blood Urea Nitrogen [Pending], Creatinine [Pending], Estimat Glomerular Filtration Rate [Pending], Glucose Level [Pending], Calcium Level [Pending] Height (Feet): 5 Height (Inches): 5.00 Weight (Pounds): 140 General Appearance: no apparent distress EENT: normal ENT inspection Neck: supple Cardiovascular: normal rate Respiratory/Chest: decreased breath sounds Abdomen: normal bowel sounds, non tender, soft Extremities: non-tender GEOVANNY RAMIREZ Apr 23, 2016 07:32
[2016-04-23 07:37] LABS: BASOPHILS % (AUTO) 0.7 % (0.0-2.0); EOSINOPHILS % (AUTO) 4.4 % (0.0-3.0); LYMPHOCYTES % (AUTO) 23.7 % (20.0-45.0); MEAN CORPUSCULAR HEMOGLOBIN 30.5 PG (27.0-31.0); MEAN CORPUSCULAR HGB CONC 31.2 G/DL (32.0-36.0); MEAN CORPUSCULAR VOLUME 98 FL (80-99); MEAN PLATELET VOLUME 6.4 FL (6.5-10.1); MONOCYTES % (AUTO) 9.1 % (1.0-10.0); NEUTROPHILS % (AUTO) 62.2 % (45.0-75.0); PLATELET COUNT 146 K/UL (150-450); RED BLOOD COUNT 2.71 M/UL (4.20-5.40); RED CELL DISTRIBUTION WIDTH 17.4 % (11.6-14.8)
[2016-04-23 07:48] LABS: CALCIUM 7.2 mg/dL (8.6-10.2); CREATININE 4.1 mg/dL (0.5-0.9); GLOMERULAR FILTRATION RATE 13.5 mL/min (>60); POTASSIUM 3.7 mEQ/L (3.4-4.9)
[2016-04-23] MEDS: Heparin 5000 units/ml inj SUBQ SCH ×2 (08:10→21:00)
[2016-04-23 08:17] VITALS: BP 148/78
[2016-04-23] MEDS: Rifaximin 550mg tab ORAL SCH ×2 (08:50→21:37)
[2016-04-23] MEDS: Docusate 100mg cap ORAL SCH ×3 (08:50→18:00)
[2016-04-23] MEDS: Thiamine 100mg tab ORAL SCH (08:50)
[2016-04-23] MEDS: Carvedilol 25mg Tab ORAL SCH ×2 (08:50→21:37)
[2016-04-23] MEDS: Dextrose 10% 1,000 ML IV SCH (08:51)
--- NOTE | 2016-04-23 10:11 | Diagnostic Imaging Report ---
Indication: Cough Technique: XRAY CHEST 1 V Comparison: 04/17/16 Findings: Cardiac silhouette is prominent. There is improving but persistent interstitial edema. There is again atelectasis of the left base. Osseous structures are stable. Right-sided vascular stent is noted. Impression: Mildly improved but persistent interstitial edema. Otherwise stable chest.
--- NOTE | 2016-04-23 10:46 | Diagnostic Imaging Report ---
Indication: Pelvic pain Technique: Transabdominal pelvic ultrasound Comparison: None Findings: Examination is limited by transabdominal technique only. Ascites is noted. The uterus and ovaries are not adequately visualized. Impression: Technically limited examination with transabdominal evaluation only. Uterus and ovaries not adequately seen and further evaluation recommended as indicated. Ascites.
--- NOTE | 2016-04-23 12:02 | Pulmonology Progress Note ---
Assessment/Plan Assessment/Plan ASSESSMENT pulmonary edema CHF, diastolic dysfunction dyspnea 2 to diastolic dysfunction and ascites pleural effusion severe pulmonary HTN HTN valvular heart disease ( AR, TR) pericardial effusion abdominal pain hx of ETOH abuse ascites, s/p paracentesis-3.6 L elevated tumor markers, likely malignant process anemia elevated transaminase hepatitis B hepatic encephalopathy symptomatic weight loss ESRD, on HD DM elevated TSH PLAN OF CARE O2 HHN CXR with bilateral congestive changes, AMERICA atelectasis, fup with CXR in am ECHO with EF 70%, significant LVH and RVSP of 60 c/w severe pulmonary HTN, small to moderate pericardial effusion, moderate TR, small AR BP management with BB and CCB, optimize as needed CT A/P with marked ascites ; s/p paracentesis -3.6 L GI follows elevated tumor markers: Ca 125, Ca 19-9. mild elevation in CEA, AFP WNL onco seen patient earlier bone scan and TV US pending ascitic fluid cytology no evidence of malignancy hepatitis panel + hep B monitor HH, transfuse prn stool OB s/p EGD 04/21 with finding of gastritis PPI bowel regimen nephro follows, HD per nephro, monitor renal parameters, lytes continue lactulose and Xifaxan , check ammonia BS management with SS of insulin, HgA1c -5.2 case discussed and evaluated by supervising physician PLAN OF CARE Subjective Allergies: Coded Allergies: No Known Allergies (Unverified , 09/20/15) Subjective s/p endoscopy 04/21 afebrile, no leukocytosis on RA pulse oximetry stable Objective Last 24 Hour Vital Signs Date Time Temp Pulse Resp B/P Pulse Ox O2 Delivery O2 Flow Rate FiO2 04/23/16 08:50 93 148/78 04/23/16 08:50 93 148/78 04/23/16 08:17 98.1 93 16 148/78 93 Room Air 04/23/16 07:41 98.4 04/23/16 04:00 98.4 88 22 139/77 Room Air 04/23/16 04:00 100 Room Air 04/23/16 02:13 97.5 04/23/16 00:00 100.9 98 22 121/65 100 04/22/16 21:38 102 169/89 04/22/16 20:00 95.7 102 22 169/89 91 Room Air 04/22/16 19:24 90 18 Room Air Intake and Output 04/22/16 04/23/16 19:00 07:00 Intake Total 540 ml 300 ml Output Total 3055 ml Balance -2515 ml 300 ml Intake Oral 240 ml IV Total 300 ml 300 ml Hemodialysis UF 3055 ml # Voids 1 2 # Bowel Movements 1 Objective General Appearance: WD/WN, no apparent distress, alert, responsive EENT: PERRL/EOMI, normal ENT inspection, TMs normal Neck: non-tender, normal alignment, supple Cardiovascular: normal peripheral pulses, normal rate, regular rhythm, no gallop/murmur, no JVD Respiratory/Chest: chest wall non-tender, lungs clear, no respiratory distress , no accessory muscle use Abdomen: hypoactive bowel sounds, distended, nontender Extremities: normal range of motion Edema: moderate edema Neurologic: sweat band sewer II-XII grossly normal Skin: normal pigmentation, warm/dry Laboratory Tests 04/23/16 05:10: White Blood Count 6.0, Red Blood Count 2.71L, Hemoglobin 8.2L, Hematocrit 26.4L , Mean Corpuscular Volume 98, Mean Corpuscular Hemoglobin 30.5, Mean Corpuscular Hemoglobin Concent 31.2L, Red Cell Distribution Width 17.4H, Platelet Count 146L, Mean Platelet Volume 6.4L, Neutrophils (%) (Auto) 62.2, Lymphocytes (%) (Auto) 23.7, Monocytes (%) (Auto) 9.1, Eosinophils (%) (Auto) 4.4H, Basophils (%) (Auto) 0.7, Sodium Level 134L, Potassium Level 3.7, Chloride Level 91L, Carbon Dioxide Level 32H, Anion Gap 11, Blood Urea Nitrogen 21, Creatinine 4.1H, Estimat Glomerular Filtration Rate 13.5, Glucose Level 98, Calcium Level 7.2L Current Medications Medications (Trade) Dose Ordered Sig/Ranjan Route PRN Reason Start Time Stop Time Status Last Admin Dose Admin Acetaminophen (Tylenol) 650 mg Q6H PRN ORAL Prn Headache/Temp > 101 04/20/16 04:15 05/20/16 04:14 04/23/16 01:14 Albuterol/ Ipratropium (DuoNeb 0.5-3(2.5)mg/3ml) 3 ml Q6H PRN HHN dyspnea 04/20/16 08:30 04/25/16 08:29 Amlodipine Besylate (Norvasc) 10 mg DAILY ORAL 04/20/16 09:00 05/20/16 08:59 04/23/16 08:50 Aspirin (ASA) 325 mg DAILY ORAL 04/20/16 09:00 05/20/16 08:59 04/23/16 08:50 Carvedilol (Coreg) 25 mg EVERY 12 HOURS ORAL 04/20/16 09:00 05/20/16 08:59 04/23/16 08:50 Clonidine HCl (Catapres) 0.1 mg Q4H PRN ORAL For High Blood Pressure 04/20/16 06:30 05/20/16 06:29 Dextrose (D10w) 1,000 ml @ 50 mls/hr Q20H IV 04/20/16 03:15 05/20/16 03:14 04/23/16 08:51 Dextrose (Dextrose 50%) STAT PRN IV Hypoglycemia 04/20/16 14:30 05/20/16 14:29 Diphenhydramine HCl (Benadryl) 25 mg Q4HR PRN IVP Itching 04/22/16 23:30 05/22/16 23:29 Docusate Sodium (Colace) 100 mg TID ORAL 04/20/16 09:00 05/20/16 08:59 04/23/16 08:50 Epoetin Vikas (Procrit (for ESRD on dialysis)) 3,000 units SUN-WED-SUN SUBQ 04/24/16 21:00 05/24/16 20:59 Heparin Sodium (Porcine) (Heparin 5000 units/ml) 5,000 units EVERY 12 HOURS SUBQ 04/20/16 09:00 05/20/16 08:59 04/21/16 21:40 Insulin Aspart (NovoLOG) BEFORE MEALS AND HS SUBQ 04/20/16 06:30 05/20/16 06:29 04/21/16 17:36 Lactulose (Cephulac) 20 gm Q8HR ORAL 04/20/16 06:00 05/20/16 05:59 04/23/16 06:19 Metoclopramide HCl (Reglan) 5 mg TIAC ORAL 04/20/16 06:30 05/20/16 06:29 04/23/16 06:19 Morphine Sulfate (Morphine Sulfate) 1 mg Q4H PRN IVP For Pain 04/20/16 06:30 04/27/16 06:29 04/23/16 06:20 Ondansetron HCl (Zofran) 4 mg Q6H PRN IVP Nausea & Vomiting 04/20/16 08:30 05/20/16 08:29 Pantoprazole (Protonix) 40 mg DAILY ORAL 04/20/16 09:00 05/20/16 08:59 04/23/16 08:50 Polyethylene Glycol (Miralax) 17 gm HSPRN PRN ORAL Constipation 04/20/16 14:30 05/20/16 14:29 Rifaximin (Xifaxan) 550 mg EVERY 12 HOURS ORAL 04/20/16 09:00 04/27/16 08:59 04/23/16 08:50 Sevelamer Carbonate (Renvela) 1,600 mg TIAC ORAL 04/20/16 06:30 05/20/16 06:29 04/23/16 06:19 Thiamine HCl (Vitamin B1) 100 mg DAILY ORAL 04/20/16 09:00 05/20/16 08:59 04/23/16 08:50 Trazodone HCl (Desyrel) 100 mg BEDTIME ORAL 04/20/16 21:00 05/20/16 20:59 04/22/16 21:38 Zolpidem Tartrate (Ambien) 5 mg HSPRN PRN ORAL Insomnia 04/20/16 14:30 05/20/16 14:29 Preston TorresBrunswick Hospital CenterPatti Braxton NP Apr 23, 2016 12:02
[2016-04-23 12:07] VITALS: BP 135/69
[2016-04-23] MEDS ORDERED: DuoNeb 0.5-3(2.5)mg/3ml neb HHN PRN (12:30)
--- NOTE | 2016-04-23 13:04 | General Progress Note ---
Assessment/Plan Status: stable Assessment/Plan status: ESRD- HyperKalemia- Ascitis- DM HTN At Fib Anemia Plan: optimize cardiac and pulmonary status- BP meds adjustment- 2 D Echo : Left ventricular ejection fraction estimated to be 70 %. Monitor lytes and renal parameters- HD in am- ordered Per consultants Subjective ROS Limited/Unobtainable: No Constitutional: Reports: malaise Allergies: Coded Allergies: No Known Allergies (Unverified , 09/20/15) Objective Last 24 Hour Vital Signs Date Time Temp Pulse Resp B/P Pulse Ox O2 Delivery O2 Flow Rate FiO2 04/23/16 12:07 97.7 91 18 135/69 93 Room Air 04/23/16 08:50 93 148/78 04/23/16 08:50 93 148/78 04/23/16 08:17 98.1 93 16 148/78 93 Room Air 04/23/16 07:41 98.4 04/23/16 04:00 98.4 88 22 139/77 Room Air 04/23/16 04:00 100 Room Air 04/23/16 02:13 97.5 04/23/16 00:00 100.9 98 22 121/65 100 04/22/16 21:38 102 169/89 04/22/16 20:00 95.7 102 22 169/89 91 Room Air 04/22/16 19:24 90 18 Room Air Intake and Output 04/22/16 04/23/16 19:00 07:00 Intake Total 540 ml 350 ml Output Total 3055 ml Balance -2515 ml 350 ml Intake Oral 240 ml IV Total 300 ml 350 ml Hemodialysis UF 3055 ml # Voids 1 2 # Bowel Movements 1 Laboratory Tests 04/23/16 05:10: White Blood Count 6.0, Red Blood Count 2.71L, Hemoglobin 8.2L, Hematocrit 26.4L , Mean Corpuscular Volume 98, Mean Corpuscular Hemoglobin 30.5, Mean Corpuscular Hemoglobin Concent 31.2L, Red Cell Distribution Width 17.4H, Platelet Count 146L, Mean Platelet Volume 6.4L, Neutrophils (%) (Auto) 62.2, Lymphocytes (%) (Auto) 23.7, Monocytes (%) (Auto) 9.1, Eosinophils (%) (Auto) 4.4H, Basophils (%) (Auto) 0.7, Sodium Level 134L, Potassium Level 3.7, Chloride Level 91L, Carbon Dioxide Level 32H, Anion Gap 11, Blood Urea Nitrogen 21, Creatinine 4.1H, Estimat Glomerular Filtration Rate 13.5, Glucose Level 98, Calcium Level 7.2L Height (Feet): 5 Height (Inches): 5.00 Weight (Pounds): 140 General Appearance: no apparent distress Objective other PE not changed PEPE MONTERROSO 5, 2017 13:04
--- NOTE | 2016-04-23 13:49 | Internal Med Progress Note ---
Subjective Date of Service: Apr 23, 2016 Physician Name Javier Huerta Attending Physician Jackson Albright MD Current Medications Medications (Trade) Dose Ordered Sig/Ranjan Route PRN Reason Start Time Stop Time Status Last Admin Dose Admin Acetaminophen (Tylenol) 650 mg Q6H PRN ORAL Prn Headache/Temp > 101 04/20/16 04:15 05/20/16 04:14 04/23/16 01:14 Albuterol/ Ipratropium (DuoNeb 0.5-3(2.5)mg/3ml) 3 ml Q6H PRN HHN dyspnea 04/23/16 12:30 04/28/16 12:29 Amlodipine Besylate (Norvasc) 10 mg DAILY ORAL 04/20/16 09:00 05/20/16 08:59 04/23/16 08:50 Aspirin (ASA) 325 mg DAILY ORAL 04/20/16 09:00 05/20/16 08:59 04/23/16 08:50 Carvedilol (Coreg) 25 mg EVERY 12 HOURS ORAL 04/20/16 09:00 05/20/16 08:59 04/23/16 08:50 Clonidine HCl (Catapres) 0.1 mg Q4H PRN ORAL For High Blood Pressure 04/20/16 06:30 05/20/16 06:29 Dextrose (D10w) 1,000 ml @ 50 mls/hr Q20H IV 04/20/16 03:15 05/20/16 03:14 04/23/16 08:51 Dextrose (Dextrose 50%) STAT PRN IV Hypoglycemia 04/20/16 14:30 05/20/16 14:29 Diphenhydramine HCl (Benadryl) 25 mg Q4HR PRN IVP Itching 04/22/16 23:30 05/22/16 23:29 Docusate Sodium (Colace) 100 mg TID ORAL 04/20/16 09:00 05/20/16 08:59 04/23/16 08:50 Epoetin Vikas (Procrit (for ESRD on dialysis)) 3,000 units MON-WED-SUN SUBQ 04/24/16 21:00 05/24/16 20:59 Heparin Sodium (Porcine) (Heparin 5000 units/ml) 5,000 units EVERY 12 HOURS SUBQ 04/20/16 09:00 05/20/16 08:59 04/21/16 21:40 Insulin Aspart (NovoLOG) BEFORE MEALS AND HS SUBQ 04/20/16 06:30 05/20/16 06:29 04/21/16 17:36 Lactulose (Cephulac) 20 gm Q8HR ORAL 04/20/16 06:00 05/20/16 05:59 04/23/16 06:19 Metoclopramide HCl (Reglan) 5 mg TIAC ORAL 04/20/16 06:30 05/20/16 06:29 04/23/16 12:11 Morphine Sulfate (Morphine Sulfate) 1 mg Q4H PRN IVP For Pain 04/20/16 06:30 04/27/16 06:29 04/23/16 06:20 Ondansetron HCl (Zofran) 4 mg Q6H PRN IVP Nausea & Vomiting 04/20/16 08:30 05/20/16 08:29 Pantoprazole (Protonix) 40 mg DAILY ORAL 04/20/16 09:00 05/20/16 08:59 04/23/16 08:50 Polyethylene Glycol (Miralax) 17 gm HSPRN PRN ORAL Constipation 04/20/16 14:30 05/20/16 14:29 Rifaximin (Xifaxan) 550 mg EVERY 12 HOURS ORAL 04/20/16 09:00 04/27/16 08:59 04/23/16 08:50 Sevelamer Carbonate (Renvela) 1,600 mg TIAC ORAL 04/20/16 06:30 05/20/16 06:29 04/23/16 12:11 Thiamine HCl (Vitamin B1) 100 mg DAILY ORAL 04/20/16 09:00 05/20/16 08:59 04/23/16 08:50 Trazodone HCl (Desyrel) 100 mg BEDTIME ORAL 04/20/16 21:00 05/20/16 20:59 04/22/16 21:38 Zolpidem Tartrate (Ambien) 5 mg HSPRN PRN ORAL Insomnia 04/20/16 14:30 05/20/16 14:29 Allergies: Coded Allergies: No Known Allergies (Unverified , 09/20/15) ROS Limited/Unobtainable: No Constitutional: Reports: no symptoms HEENT: Reports: no symptoms Cardiovascular: Reports: no symptoms Respiratory: Reports: no symptoms Gastrointestinal/Abdominal: Reports: abdomen distended Genitourinary: Reports: no symptoms Neurologic/Psychiatric: Reports: no symptoms Subjective 61 YO F admitted with abdominal distention and pain. Now ascites. Cover for [facility] See-Dr Albright. S/P paracentesis 04/18/16. S/P EGD 04/21/16. Objective Last Vital Signs Date Time Temp Pulse Resp B/P Pulse Ox O2 Delivery O2 Flow Rate FiO2 04/23/16 12:07 97.7 91 18 135/69 93 Room Air 04/21/16 19:29 2.0 28 Laboratory Tests Test 04/23/16 05:10 White Blood Count 6.0 K/UL (4.8-10.8) Red Blood Count 2.71 M/UL (4.20-5.40) L Hemoglobin 8.2 G/DL (12.0-16.0) L Hematocrit 26.4 % (37.0-47.0) L Mean Corpuscular Volume 98 FL (80-99) Mean Corpuscular Hemoglobin 30.5 PG (27.0-31.0) Mean Corpuscular Hemoglobin Concent 31.2 G/DL (32.0-36.0) L Red Cell Distribution Width 17.4 % (11.6-14.8) H Platelet Count 146 K/UL (150-450) L Mean Platelet Volume 6.4 FL (6.5-10.1) L Neutrophils (%) (Auto) 62.2 % (45.0-75.0) Lymphocytes (%) (Auto) 23.7 % (20.0-45.0) Monocytes (%) (Auto) 9.1 % (1.0-10.0) Eosinophils (%) (Auto) 4.4 % (0.0-3.0) H Basophils (%) (Auto) 0.7 % (0.0-2.0) Sodium Level 134 mEQ/L (135-145) L Potassium Level 3.7 mEQ/L (3.4-4.9) Chloride Level 91 mEQ/L (98-107) L Carbon Dioxide Level 32 mEQ/L (20-30) H Anion Gap 11 (5-15) Blood Urea Nitrogen 21 mg/dL (7-23) Creatinine 4.1 mg/dL (0.5-0.9) H Estimat Glomerular Filtration Rate 13.5 mL/min (>60) Glucose Level 98 mg/dL (74-106) Calcium Level 7.2 mg/dL (8.6-10.2) L Intake and Output 04/22/16 04/23/16 19:00 07:00 Intake Total 540 ml 350 ml Output Total 3055 ml Balance -2515 ml 350 ml Intake Oral 240 ml IV Total 300 ml 350 ml Hemodialysis UF 3055 ml # Voids 1 2 # Bowel Movements 1 Objective General Appearance: WD/WN, no apparent distress, alert EENT: PERRL/EOMI, normal ENT inspection, TMs normal Neck: non-tender, normal alignment, supple Cardiovascular: normal peripheral pulses, normal rate, regular rhythm, no gallop/murmur, no JVD Respiratory/Chest: chest wall non-tender, lungs clear, normal breath sounds, no respiratory distress, no accessory muscle use Abdomen: decreased bowel sounds, distended, guarding, tender Extremities: normal range of motion Edema: moderate edema 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 Await liver studies-see GI note. (3) Abdominal pain (4) Ascites Assessment & Plan: S/P paracentesis (3.6L)-await results. See GI note. (5) ESRD (end stage renal disease) Assessment & Plan: S/P hemodialysis 04/20/16. See nephrology note. (6) HTN (hypertension) Assessment & Plan: Cont coreg and norvasc. (7) CHF (congestive heart failure) Assessment & Plan: see cardiology note. (8) Anemia Assessment & Plan: S/P EGD 04/21/16. See GI note. (9) Gastritis Assessment & Plan: Cont protonix per GI Status: stable Assessment/Plan Discharge planning: JAVIER Vitale Apr 23, 2016 13:49
[2016-04-23 16:00] VITALS: BP 132/72
--- NOTE | 2016-04-23 16:14 | Cardiology Progress Note ---
Assessment/Plan Status Narrative Pt w/ severe pulm hypertension by echo this adm, end stage renal dis, on HD, and abd pain. CXR w improving interstitial edema Abd pain, + u/a - ? uti elevated tumor markers ascites, s/p paracentesis Assessment/Plan Additional fluid removal w/ hemodialysis Check urine c/s w/u for malignancy as per Dr Tobar. Subjective ROS Limited/Unobtainable: No Subjective No new c/o. Objective Last 24 Hour Vital Signs Date Time Temp Pulse Resp B/P Pulse Ox O2 Delivery O2 Flow Rate FiO2 04/23/16 12:07 97.7 91 18 135/69 93 Room Air 04/23/16 08:50 93 148/78 04/23/16 08:50 93 148/78 04/23/16 08:17 98.1 93 16 148/78 93 Room Air 04/23/16 07:41 98.4 04/23/16 04:00 98.4 88 22 139/77 Room Air 04/23/16 04:00 100 Room Air 04/23/16 02:13 97.5 04/23/16 00:00 100.9 98 22 121/65 100 04/22/16 21:38 102 169/89 04/22/16 20:00 95.7 102 22 169/89 91 Room Air 04/22/16 19:24 90 18 Room Air General Appearance: WD/WN, alert EENT: PERRL/EOMI Neck: no JVD Rhythm: NSR Cardiovascular: normal rate, regular rhythm, other - i/vi jennifer Respiratory/Chest: lungs clear Abdomen: non tender, soft, other - mild distension, mid abd tenderness Extremities: non-tender, no swelling Intake and Output 04/22/16 04/23/16 19:00 07:00 Intake Total 540 ml 350 ml Output Total 3055 ml Balance -2515 ml 350 ml Intake Oral 240 ml IV Total 300 ml 350 ml Hemodialysis UF 3055 ml # Voids 1 2 # Bowel Movements 1 Laboratory Tests Test 04/23/16 05:10 White Blood Count 6.0 K/UL (4.8-10.8) Red Blood Count 2.71 M/UL (4.20-5.40) L Hemoglobin 8.2 G/DL (12.0-16.0) L Hematocrit 26.4 % (37.0-47.0) L Mean Corpuscular Volume 98 FL (80-99) Mean Corpuscular Hemoglobin 30.5 PG (27.0-31.0) Mean Corpuscular Hemoglobin Concent 31.2 G/DL (32.0-36.0) L Red Cell Distribution Width 17.4 % (11.6-14.8) H Platelet Count 146 K/UL (150-450) L Mean Platelet Volume 6.4 FL (6.5-10.1) L Neutrophils (%) (Auto) 62.2 % (45.0-75.0) Lymphocytes (%) (Auto) 23.7 % (20.0-45.0) Monocytes (%) (Auto) 9.1 % (1.0-10.0) Eosinophils (%) (Auto) 4.4 % (0.0-3.0) H Basophils (%) (Auto) 0.7 % (0.0-2.0) Sodium Level 134 mEQ/L (135-145) L Potassium Level 3.7 mEQ/L (3.4-4.9) Chloride Level 91 mEQ/L (98-107) L Carbon Dioxide Level 32 mEQ/L (20-30) H Anion Gap 11 (5-15) Blood Urea Nitrogen 21 mg/dL (7-23) Creatinine 4.1 mg/dL (0.5-0.9) H Estimat Glomerular Filtration Rate 13.5 mL/min (>60) Glucose Level 98 mg/dL (74-106) Calcium Level 7.2 mg/dL (8.6-10.2) KARON MEDINA 5, 2017 16:14
[2016-04-23 19:00] VITALS: BP 132/70
[2016-04-23] MEDS: TraZODone 100mg tab ORAL SCH (21:37)
[2016-04-24] VITALS (8 sets, daily range): BP systolic 113–135; BP diastolic 64–76
[2016-04-24] MEDS: Morphine Sulfate 2mg/ml Inj IVP PRN ×4 (03:30→18:10)
[2016-04-24] MEDS: Lactulose 20gm/30ml UDC ORAL SCH ×3 (06:17→21:51)
[2016-04-24] MEDS: NovoLOG Insulin Flexpen SUBQ SCH ×4 (06:18→21:00)
[2016-04-24] MEDS: Dextrose 10% 1,000 ML IV SCH (06:20)
[2016-04-24 07:22] LABS: BASOPHILS % (AUTO) 0.4 % (0.0-2.0); EOSINOPHILS % (AUTO) 4.6 % (0.0-3.0); LYMPHOCYTES % (AUTO) 18.6 % (20.0-45.0); MEAN CORPUSCULAR HGB CONC 31.7 G/DL (32.0-36.0); MEAN CORPUSCULAR VOLUME 98 FL (80-99); MEAN PLATELET VOLUME 6.3 FL (6.5-10.1); MONOCYTES % (AUTO) 10.5 % (1.0-10.0); NEUTROPHILS % (AUTO) 65.8 % (45.0-75.0); PLATELET COUNT 154 K/UL (150-450); RED BLOOD COUNT 2.57 M/UL (4.20-5.40); RED CELL DISTRIBUTION WIDTH 17.3 % (11.6-14.8); WHITE BLOOD COUNT 6.5 K/UL (4.8-10.8)
[2016-04-24 07:41] LABS: ALBUMIN/GLOBULIN RATIO 0.5 (1.0-2.7); CALCIUM 7.1 mg/dL (8.6-10.2); CREATININE 5.5 mg/dL (0.5-0.9); GLOMERULAR FILTRATION RATE 9.6 mL/min (>60); MAGNESIUM 1.7 mg/dL (1.7-2.5); PHOSPHORUS 4.2 mg/dL (2.5-4.8); POTASSIUM 3.9 mEQ/L (3.4-4.9); TOTAL PROTEIN 6.5 g/dL (6.6-8.7); URIC ACID 4.4 mg/dL (3.0-7.5)
--- NOTE | 2016-04-24 08:28 | Diagnostic Imaging Report ---
Indications: Diffuse skeletal sclerosis on abdominopelvic CT scan, metastatic workup Technique: 17 views of the axial and appendicular skeleton Findings: Comparison: CT abdomen pelvis 04/17/16 The calvarium and thoracic vertebrae appear diffusely sclerotic. Density of remaining skeletal structures appears within normal limits. No focal lytic or sclerotic lesions demonstrated. Fusion hardware in cervical spine. Intravascular stent in region of right brachiocephalic vein. Cardiac silhouette enlarged. Linear densities in left mid and lower lung. Aortic arch mildly calcified. Surgical clips in the soft tissues adjacent to left elbow joint. Remainder of exam unremarkable. IMPRESSION: Sclerosis of calvarium, thoracic vertebrae, nonspecific, may be neoplastic or metabolic. Nuclear medicine whole-body bone scan recommended for further evaluation. No focal skeletal lesions to suggest diastases or myeloma Previous cervical vertebral fusion Previous right central venous stent placement Previous left elbow region surgery Cardiomegaly Left lung subsegmental atelectasis versus scarring Arteriosclerosis
[2016-04-24] MEDS: Thiamine 100mg tab ORAL SCH (08:30)
[2016-04-24] MEDS: Docusate 100mg cap ORAL SCH ×3 (08:32→18:10)
[2016-04-24] MEDS: Carvedilol 25mg Tab ORAL SCH ×2 (08:32→21:51)
[2016-04-24] MEDS: Rifaximin 550mg tab ORAL SCH ×2 (08:33→21:49)
[2016-04-24] MEDS: Heparin 5000 units/ml inj SUBQ SCH ×2 (08:33→21:54)
--- NOTE | 2016-04-24 11:22 | General Progress Note ---
Assessment/Plan Assessment/Plan ASSESSMENT: 1. Elevated tumor markers. The patient with a history of elevated tumor markers , CA-99 and CA-125 were elevated. An imaging CT scan shows potential sclerosis versus metastatic neoplasm, metabolic abnormality, in addition 12 mm enhancing nodule noted nonspecific and liver, which will need to be followed up. Skeletal survey nonspecific and to obtain NM scan 2. Anemia on chronic kidney disease. ferritin 706, esr elevated, on epo 3. 12 mm nodule, liver 4. Hypertension. 5. History of alcohol abuse. 6. Abdominal pain. 7. Atelectasis. 8. Pulmonary edema. 9. Ascites. RECOMMENDATION: 1. Obtain NM whole body scan to rule out metastatic lesions 2. Continue epogen sq 3. Imaging of the liver nodule every six months perhaps hepatology service imaging to rule out nodule every six months, which is 12 mm, which will need to be followed up. 4. Peripheral smear currently negative 5. Hemodialysis three times a week. 6. Monitor coagulopathy. 7. Discussed with staff. Thank you, Fabrizio Tobar MD Subjective Constitutional: Reports: no symptoms HEENT: Reports: no symptoms Cardiovascular: Reports: no symptoms Respiratory: Reports: no symptoms Gastrointestinal/Abdominal: Reports: no symptoms Genitourinary: Reports: no symptoms Neurologic/Psychiatric: Reports: anxiety Endocrine: Reports: no symptoms Hematologic/Lymphatic: Reports: anemia Allergies: Coded Allergies: No Known Allergies (Unverified , 09/20/15) Subjective stable, no events overnight, in bed, comfortable Objective Last 24 Hour Vital Signs Date Time Temp Pulse Resp B/P Pulse Ox O2 Delivery O2 Flow Rate FiO2 04/24/16 10:49 Room Air 04/24/16 10:47 97.0 96 18 135/74 97 Room Air 04/24/16 09:00 97.1 04/24/16 08:11 97.1 90 18 125/64 95 Room Air 04/24/16 07:00 97.7 93 20 129/72 Room Air 04/24/16 07:00 Room Air 04/24/16 04:00 97.9 85 18 134/74 96 Room Air 04/24/16 00:00 98.0 90 18 128/76 96 Room Air 04/23/16 21:37 90 132/70 04/23/16 19:08 90 18 Room Air 04/23/16 19:00 98.1 89 18 132/70 96 Room Air 04/23/16 16:00 97.9 88 18 132/72 95 Room Air 04/23/16 12:07 97.7 91 18 135/69 93 Room Air Intake and Output 04/23/16 04/24/16 19:00 07:00 Intake Total 740 ml 1300 ml Balance 740 ml 1300 ml Intake Oral 240 ml 750 ml IV Total 500 ml 550 ml # Voids 1 6 # Bowel Movements 1 Laboratory Tests 04/24/16 04:55: White Blood Count 6.5, Red Blood Count 2.57L, Hemoglobin 8.0L, Hematocrit 25.1L , Mean Corpuscular Volume 98, Mean Corpuscular Hemoglobin 31.0, Mean Corpuscular Hemoglobin Concent 31.7L, Red Cell Distribution Width 17.3H, Platelet Count 154, Mean Platelet Volume 6.3L, Neutrophils (%) (Auto) 65.8, Lymphocytes (%) (Auto) 18.6L, Monocytes (%) (Auto) 10.5H, Eosinophils (%) (Auto ) 4.6H, Basophils (%) (Auto) 0.4, Sodium Level 135, Potassium Level 3.9, Chloride Level 92L, Carbon Dioxide Level 30, Anion Gap 13, Blood Urea Nitrogen 32H, Creatinine 5.5H, Estimat Glomerular Filtration Rate 9.6, Glucose Level 93, Uric Acid 4.4, Calcium Level 7.1L, Phosphorus Level 4.2, Magnesium Level 1.7, Total Bilirubin 0.4, Aspartate Amino Transf (AST/SGOT) 15, Alanine Aminotransferase (ALT/SGPT) 6, Alkaline Phosphatase 101, Total Protein 6.5L, Albumin 2.3L, Globulin 4.2, Albumin/Globulin Ratio 0.5L Height (Feet): 5 Height (Inches): 5.00 Weight (Pounds): 140 General Appearance: alert EENT: TMs normal Neck: normal inspection Cardiovascular: regular rhythm Respiratory/Chest: normal breath sounds Abdomen: soft Extremities: non-tender Edema: 1+ Leg (L), 1+ Leg (R) Edema: mild edema Neurologic: alert Skin: normal pigmentation Fabrizio Tobar Apr 24, 2016 11:22
[2016-04-24] MEDS ORDERED: Promethazine/DM 6.25mg/5ml ORAL PRN (11:45)
--- NOTE | 2016-04-24 11:56 | Internal Med Progress Note ---
Subjective Date of Service: Apr 24, 2016 Physician Name Javier Huerta Attending Physician Jackson Albright MD Current Medications Medications (Trade) Dose Ordered Sig/Ranjan Route PRN Reason Start Time Stop Time Status Last Admin Dose Admin Acetaminophen (Tylenol) 650 mg Q6H PRN ORAL Prn Headache/Temp > 101 04/20/16 04:15 05/20/16 04:14 04/23/16 01:14 Albuterol/ Ipratropium (DuoNeb 0.5-3(2.5)mg/3ml) 3 ml Q6H PRN HHN dyspnea 04/23/16 12:30 04/28/16 12:29 Amlodipine Besylate (Norvasc) 10 mg DAILY ORAL 04/20/16 09:00 05/20/16 08:59 04/23/16 08:50 Aspirin (ASA) 325 mg DAILY ORAL 04/20/16 09:00 05/20/16 08:59 04/24/16 08:30 Carvedilol (Coreg) 25 mg EVERY 12 HOURS ORAL 04/20/16 09:00 05/20/16 08:59 04/23/16 21:37 Clonidine HCl (Catapres) 0.1 mg Q4H PRN ORAL For High Blood Pressure 04/20/16 06:30 05/20/16 06:29 Dextrose (D10w) 1,000 ml @ 50 mls/hr Q20H IV 04/20/16 03:15 05/20/16 03:14 04/24/16 06:20 Dextrose (Dextrose 50%) STAT PRN IV Hypoglycemia 04/20/16 14:30 05/20/16 14:29 Diphenhydramine HCl (Benadryl) 25 mg Q4HR PRN IVP Itching 04/22/16 23:30 05/22/16 23:29 Docusate Sodium (Colace) 100 mg TID ORAL 04/20/16 09:00 05/20/16 08:59 04/23/16 08:50 Epoetin Vikas (Procrit (for ESRD on dialysis)) 3,000 units MON-WED-SUN SUBQ 04/24/16 21:00 05/24/16 20:59 Heparin Sodium (Porcine) (Heparin 5000 units/ml) 5,000 units EVERY 12 HOURS SUBQ 04/20/16 09:00 05/20/16 08:59 04/21/16 21:40 Insulin Aspart (NovoLOG) BEFORE MEALS AND HS SUBQ 04/20/16 06:30 05/20/16 06:29 04/24/16 11:51 Lactulose (Cephulac) 20 gm Q8HR ORAL 04/20/16 06:00 05/20/16 05:59 04/24/16 06:17 Morphine Sulfate (Morphine Sulfate) 1 mg Q4H PRN IVP For Pain 04/20/16 06:30 04/27/16 06:29 04/24/16 08:30 Ondansetron HCl (Zofran) 4 mg Q6H PRN IVP Nausea & Vomiting 04/20/16 08:30 05/20/16 08:29 Pantoprazole (Protonix) 40 mg DAILY ORAL 04/20/16 09:00 05/20/16 08:59 04/24/16 08:30 Polyethylene Glycol (Miralax) 17 gm HSPRN PRN ORAL Constipation 04/20/16 14:30 05/20/16 14:29 Promethazine HCl/ Dextromethorphan (Phenergan DM) 6.25 mg Q6H PRN ORAL For Cough 04/24/16 11:45 05/24/16 11:44 Rifaximin (Xifaxan) 550 mg EVERY 12 HOURS ORAL 04/20/16 09:00 04/27/16 08:59 04/23/16 21:37 Sevelamer Carbonate (Renvela) 1,600 mg TIAC ORAL 04/20/16 06:30 05/20/16 06:29 04/24/16 11:49 Thiamine HCl (Vitamin B1) 100 mg DAILY ORAL 04/20/16 09:00 05/20/16 08:59 04/24/16 08:30 Trazodone HCl (Desyrel) 100 mg BEDTIME ORAL 04/20/16 21:00 05/20/16 20:59 04/23/16 21:37 Zolpidem Tartrate (Ambien) 5 mg HSPRN PRN ORAL Insomnia 04/20/16 14:30 05/20/16 14:29 Allergies: Coded Allergies: No Known Allergies (Unverified , 09/20/15) ROS Limited/Unobtainable: No Constitutional: Reports: no symptoms HEENT: Reports: no symptoms Cardiovascular: Reports: no symptoms Respiratory: Reports: no symptoms Gastrointestinal/Abdominal: Reports: abdomen distended, abdominal pain Genitourinary: Reports: no symptoms Neurologic/Psychiatric: Reports: no symptoms Subjective 61 YO F admitted with abdominal distention and pain. Now ascites. Cover for Int [facility]-Dr Albright. S/P paracentesis 04/18/16. S/P EGD 04/21/16. Objective Last Vital Signs Date Time Temp Pulse Resp B/P Pulse Ox O2 Delivery O2 Flow Rate FiO2 04/24/16 10:49 Room Air 04/24/16 10:47 97.0 96 18 135/74 97 04/23/16 06:55 21 04/21/16 19:29 2.0 Laboratory Tests Test 04/24/16 04:55 White Blood Count 6.5 K/UL (4.8-10.8) Red Blood Count 2.57 M/UL (4.20-5.40) L Hemoglobin 8.0 G/DL (12.0-16.0) L Hematocrit 25.1 % (37.0-47.0) L Mean Corpuscular Volume 98 FL (80-99) Mean Corpuscular Hemoglobin 31.0 PG (27.0-31.0) Mean Corpuscular Hemoglobin Concent 31.7 G/DL (32.0-36.0) L Red Cell Distribution Width 17.3 % (11.6-14.8) H Platelet Count 154 K/UL (150-450) Mean Platelet Volume 6.3 FL (6.5-10.1) L Neutrophils (%) (Auto) 65.8 % (45.0-75.0) Lymphocytes (%) (Auto) 18.6 % (20.0-45.0) L Monocytes (%) (Auto) 10.5 % (1.0-10.0) H Eosinophils (%) (Auto) 4.6 % (0.0-3.0) H Basophils (%) (Auto) 0.4 % (0.0-2.0) Sodium Level 135 mEQ/L (135-145) Potassium Level 3.9 mEQ/L (3.4-4.9) Chloride Level 92 mEQ/L (98-107) L Carbon Dioxide Level 30 mEQ/L (20-30) Anion Gap 13 (5-15) Blood Urea Nitrogen 32 mg/dL (7-23) H Creatinine 5.5 mg/dL (0.5-0.9) H Estimat Glomerular Filtration Rate 9.6 mL/min (>60) Glucose Level 93 mg/dL (74-106) Uric Acid 4.4 mg/dL (3.0-7.5) Calcium Level 7.1 mg/dL (8.6-10.2) L Phosphorus Level 4.2 mg/dL (2.5-4.8) Magnesium Level 1.7 mg/dL (1.7-2.5) Total Bilirubin 0.4 mg/dL (0.0-1.2) Aspartate Amino Transf (AST/SGOT) 15 U/L (5-40) Alanine Aminotransferase (ALT/SGPT) 6 U/L (3-33) Alkaline Phosphatase 101 U/L (35-104) Total Protein 6.5 g/dL (6.6-8.7) L Albumin 2.3 g/dL (3.5-5.2) L Globulin 4.2 g/dL Albumin/Globulin Ratio 0.5 (1.0-2.7) L Microbiology Date/Time Source Procedure Growth Status 04/22/16 21:00 Urine,Clean Catch Urine Culture - Preliminary Gram Negative Bacillus 1 Resulted Intake and Output 04/23/16 04/24/16 19:00 07:00 Intake Total 740 ml 1300 ml Balance 740 ml 1300 ml Intake Oral 240 ml 750 ml IV Total 500 ml 550 ml # Voids 1 6 # Bowel Movements 1 Objective General Appearance: WD/WN, no apparent distress, alert EENT: PERRL/EOMI, normal ENT inspection, TMs normal Neck: non-tender, normal alignment, supple Cardiovascular: normal peripheral pulses, normal rate, regular rhythm, no gallop/murmur, no JVD Respiratory/Chest: chest wall non-tender, lungs clear, normal breath sounds, no respiratory distress, no accessory muscle use Abdomen: decreased bowel sounds, distended, guarding, tender Extremities: normal range of motion Edema: moderate edema 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 Await liver studies-see GI note. (3) Abdominal pain (4) Ascites Assessment & Plan: S/P paracentesis (3.6L)-await results. See GI note. (5) ESRD (end stage renal disease) Assessment & Plan: S/P hemodialysis 04/20/16. See nephrology note. (6) HTN (hypertension) Assessment & Plan: Cont coreg and norvasc. (7) CHF (congestive heart failure) Assessment & Plan: see cardiology note. (8) Anemia Assessment & Plan: S/P EGD 04/21/16. See GI note. (9) Gastritis Assessment & Plan: Cont protonix per GI Assessment/Plan Discharge planning: JAVIER Vitale Apr 24, 2016 11:56
--- NOTE | 2016-04-24 12:06 | Diagnostic Imaging Report ---
Indication: Dyspnea Comparison: 04/23/16 A single view chest radiograph was obtained. Findings: Patchy linear densities are present at the left lung base probably scarring or atelectasis. Cardiomegaly is present and stable. There is a right innominate venous stent. Bones are osteopenic. Impression: Some scarring or atelectasis at the left lung base again noted. No significant
--- NOTE | 2016-04-24 13:46 | General Progress Note ---
Assessment/Plan Status: stable Assessment/Plan Status: ESRD- HyperKalemia- Ascitis- DM HTN At Fib Anemia Plan: optimize cardiac and pulmonary status- BP meds adjustment- 2 D Echo : Left ventricular ejection fraction estimated to be 70 %. Monitor lytes and renal parameters- HD done this morning Per consultants Subjective ROS Limited/Unobtainable: Yes Allergies: Coded Allergies: No Known Allergies (Unverified , 09/20/15) Objective Last 24 Hour Vital Signs Date Time Temp Pulse Resp B/P Pulse Ox O2 Delivery O2 Flow Rate FiO2 04/24/16 12:00 97.9 101 18 124/74 93 Room Air 04/24/16 10:49 Room Air 04/24/16 10:47 97.0 96 18 135/74 97 Room Air 04/24/16 09:00 97.1 04/24/16 08:11 97.1 90 18 125/64 95 Room Air 04/24/16 07:00 97.7 93 20 129/72 Room Air 04/24/16 07:00 Room Air 04/24/16 04:00 97.9 85 18 134/74 96 Room Air 04/24/16 00:00 98.0 90 18 128/76 96 Room Air 04/23/16 21:37 90 132/70 04/23/16 19:08 90 18 Room Air 04/23/16 19:00 98.1 89 18 132/70 96 Room Air 04/23/16 16:00 97.9 88 18 132/72 95 Room Air Intake and Output 04/23/16 04/24/16 19:00 07:00 Intake Total 740 ml 1300 ml Balance 740 ml 1300 ml Intake Oral 240 ml 750 ml IV Total 500 ml 550 ml # Voids 1 6 # Bowel Movements 1 Laboratory Tests 04/24/16 04:55: White Blood Count 6.5, Red Blood Count 2.57L, Hemoglobin 8.0L, Hematocrit 25.1L , Mean Corpuscular Volume 98, Mean Corpuscular Hemoglobin 31.0, Mean Corpuscular Hemoglobin Concent 31.7L, Red Cell Distribution Width 17.3H, Platelet Count 154, Mean Platelet Volume 6.3L, Neutrophils (%) (Auto) 65.8, Lymphocytes (%) (Auto) 18.6L, Monocytes (%) (Auto) 10.5H, Eosinophils (%) (Auto ) 4.6H, Basophils (%) (Auto) 0.4, Sodium Level 135, Potassium Level 3.9, Chloride Level 92L, Carbon Dioxide Level 30, Anion Gap 13, Blood Urea Nitrogen 32H, Creatinine 5.5H, Estimat Glomerular Filtration Rate 9.6, Glucose Level 93, Uric Acid 4.4, Calcium Level 7.1L, Phosphorus Level 4.2, Magnesium Level 1.7, Total Bilirubin 0.4, Aspartate Amino Transf (AST/SGOT) 15, Alanine Aminotransferase (ALT/SGPT) 6, Alkaline Phosphatase 101, Total Protein 6.5L, Albumin 2.3L, Globulin 4.2, Albumin/Globulin Ratio 0.5L Height (Feet): 5 Height (Inches): 5.00 Weight (Pounds): 140 General Appearance: no apparent distress Objective other PE not changed PEPE MONTERROSO 6, 2017 13:46
--- NOTE | 2016-04-24 14:20 | GI Progress Note ---
Assessment/Plan Problems: (1) GERD (gastroesophageal reflux disease) ICD Codes: K21.9 - Gastro-esophageal reflux disease without esophagitis SNOMED: 326161601 (2) Ileus ICD Codes: K56.7 - Ileus, unspecified SNOMED: 876510215 (3) Anemia ICD Codes: D64.9 - Anemia, unspecified SNOMED: 081104846 (4) ESRD (end stage renal disease) ICD Codes: N18.6 - End stage renal disease SNOMED: 35961279 (5) Ascites ICD Codes: R18.8 - Other ascites SNOMED: 353240164 Qualifiers: Qualified Codes: R18.8 - Other ascites (6) Abnormal LFTs ICD Codes: R79.89 - Other specified abnormal findings of blood chemistry SNOMED: 116170910 (7) H/O ETOH abuse ICD Codes: Z87.898 - Personal history of other specified conditions SNOMED: 588769976 Status: unchanged Status Narrative Discussed with Dr. Reyes. Assessment/Plan CA19-9 >> 78.93 CEA >> 2.1 AFP >> WNL CA 125-5 >> 80.4 H APCT reviewed >> Marked ascites resulting in abdominal pelvic distention, etiology indeterminate, see full report. Hep panel B positive GGTP >> WNL s/p paracentesis >> 3.6 L yield >> no ascites albumin collected elevated ammonia >> lactulose renal diet bowel regime ppi fu H&H, transfuse PRN fu biopsy results fu trans vaginal biopsy fu bone survey +/- colonoscopy if needed Subjective Gastrointestinal/Abdominal: Reports: abdominal pain Subjective diarrhea (on lactulose) cough Objective Last 24 Hour Vital Signs Date Time Temp Pulse Resp B/P Pulse Ox O2 Delivery O2 Flow Rate FiO2 04/24/16 12:00 97.9 101 18 124/74 93 Room Air 04/24/16 10:49 Room Air 04/24/16 10:47 97.0 96 18 135/74 97 Room Air 04/24/16 09:00 97.1 04/24/16 08:11 97.1 90 18 125/64 95 Room Air 04/24/16 07:00 97.7 93 20 129/72 Room Air 04/24/16 07:00 Room Air 04/24/16 04:00 97.9 85 18 134/74 96 Room Air 04/24/16 00:00 98.0 90 18 128/76 96 Room Air 04/23/16 21:37 90 132/70 04/23/16 19:08 90 18 Room Air 04/23/16 19:00 98.1 89 18 132/70 96 Room Air 04/23/16 16:00 97.9 88 18 132/72 95 Room Air Intake and Output 04/23/16 04/24/16 19:00 07:00 Intake Total 740 ml 1300 ml Balance 740 ml 1300 ml Intake Oral 240 ml 750 ml IV Total 500 ml 550 ml # Voids 1 6 # Bowel Movements 1 Laboratory Tests Test 04/24/16 04:55 White Blood Count 6.5 K/UL (4.8-10.8) Red Blood Count 2.57 M/UL (4.20-5.40) L Hemoglobin 8.0 G/DL (12.0-16.0) L Hematocrit 25.1 % (37.0-47.0) L Mean Corpuscular Volume 98 FL (80-99) Mean Corpuscular Hemoglobin 31.0 PG (27.0-31.0) Mean Corpuscular Hemoglobin Concent 31.7 G/DL (32.0-36.0) L Red Cell Distribution Width 17.3 % (11.6-14.8) H Platelet Count 154 K/UL (150-450) Mean Platelet Volume 6.3 FL (6.5-10.1) L Neutrophils (%) (Auto) 65.8 % (45.0-75.0) Lymphocytes (%) (Auto) 18.6 % (20.0-45.0) L Monocytes (%) (Auto) 10.5 % (1.0-10.0) H Eosinophils (%) (Auto) 4.6 % (0.0-3.0) H Basophils (%) (Auto) 0.4 % (0.0-2.0) Sodium Level 135 mEQ/L (135-145) Potassium Level 3.9 mEQ/L (3.4-4.9) Chloride Level 92 mEQ/L (98-107) L Carbon Dioxide Level 30 mEQ/L (20-30) Anion Gap 13 (5-15) Blood Urea Nitrogen 32 mg/dL (7-23) H Creatinine 5.5 mg/dL (0.5-0.9) H Estimat Glomerular Filtration Rate 9.6 mL/min (>60) Glucose Level 93 mg/dL (74-106) Uric Acid 4.4 mg/dL (3.0-7.5) Calcium Level 7.1 mg/dL (8.6-10.2) L Phosphorus Level 4.2 mg/dL (2.5-4.8) Magnesium Level 1.7 mg/dL (1.7-2.5) Total Bilirubin 0.4 mg/dL (0.0-1.2) Aspartate Amino Transf (AST/SGOT) 15 U/L (5-40) Alanine Aminotransferase (ALT/SGPT) 6 U/L (3-33) Alkaline Phosphatase 101 U/L (35-104) Total Protein 6.5 g/dL (6.6-8.7) L Albumin 2.3 g/dL (3.5-5.2) L Globulin 4.2 g/dL Albumin/Globulin Ratio 0.5 (1.0-2.7) L Height (Feet): 5 Height (Inches): 5.00 Weight (Pounds): 140 General Appearance: no apparent distress, alert Cardiovascular: normal rate Respiratory/Chest: normal breath sounds, no respiratory distress Abdominal Exam: soft Objective Procedure: CT Abdomen Pelvis w/Contrast Indications: Abdominal pain and distention Impression: Marked ascites resulting in abdominal pelvic distention, etiology indeterminate Both dilated and nondilated small bowel, favor ileus over obstruction. Pathologic mural thickening of one or more small bowel loops not excludable. Collapsed colon and rectum. Pathologic mural thickening not excludable. Enlarged, heterogeneous liver compatible with chronic hepatocellular disease. 12 mm enhancing nodule described is nonspecific, may be benign or malignant Gallbladder wall thickening most likely secondary to presence of ascites. Cholecystitis not excludable Bilateral end-stage renal disease Escobedo catheter Diffuse body wall edema compatible with anasarca Pleural effusions, nonspecific, may be secondary to presence of ascites Pericardial effusion, nonspecific Anasarca Pulmonary bibasal subsegmental atelectasis Cardiomegaly Diffuse skeletal sclerosis may represent metastatic neoplasm or metabolic abnormality Degenerative spondylosis Autumn Lutz N.P. Apr 24, 2016 14:20
--- NOTE | 2016-04-24 17:58 | Diagnostic Imaging Report ---
Indication: Abdominal and pelvic pain. No trauma. No history of cancer Technique: IV administration 25 mCi 99 M technetium MDP. Whole body and spot images were obtained. Comparison: Reference made to CT scan dated 04/17/2016 Findings:Slight increased uptake is seen in the region of the right patella and in the region of the left heel. No other abnormal foci of increased or decreased uptake are demonstrated. No definite renal or bladder activity demonstrated Impression:No focal or generalized increased activity is as etiology of diffuse bony sclerosis described on recent CT scan. No abnormal increased uptake to suggest etiology of stated clinical history of abdominal or pelvic pain Slight increased uptake in the region of the left heel and right patella, likely reflecting mild degenerative changes Absent renal and bladder activity, consistent with history of chronic renal insufficiency
[2016-04-24] MEDS: DiphenhydrAMINE 50mg/ml Inj IVP PRN (18:18)
[2016-04-24] MEDS ORDERED: Epogen (for ESRD on dialysis) SUBQ SCH (21:00)
[2016-04-24] MEDS: TraZODone 100mg tab ORAL SCH (21:49)
--- NOTE | 2016-04-24 23:02 | Pulmonology Progress Note ---
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 Subjective Allergies: Coded Allergies: No Known Allergies (Unverified , 09/20/15) Objective Last 24 Hour Vital Signs Date Time Temp Pulse Resp B/P Pulse Ox O2 Delivery O2 Flow Rate FiO2 04/24/16 21:51 108 134/74 04/24/16 20:00 98.2 108 18 134/74 99 Room Air 04/24/16 18:40 98.2 04/24/16 16:00 98.2 100 18 113/66 100 Room Air 04/24/16 12:00 97.9 101 18 124/74 93 Room Air 04/24/16 10:49 Room Air 04/24/16 10:47 97.0 96 18 135/74 97 Room Air 04/24/16 08:11 97.1 90 18 125/64 95 Room Air 04/24/16 07:56 91 20 Room Air 21 04/24/16 07:00 97.7 93 20 129/72 Room Air 04/24/16 07:00 Room Air 04/24/16 04:00 97.9 85 18 134/74 96 Room Air 04/24/16 00:00 98.0 90 18 128/76 96 Room Air Intake and Output 04/23/16 04/24/16 19:00 07:00 Intake Total 740 ml 1300 ml Balance 740 ml 1300 ml Intake Oral 240 ml 750 ml IV Total 500 ml 550 ml # Voids 1 6 # Bowel Movements 1 Objective General Appearance: WD/WN HEENT: normocephalic, atraumatic, PERRL Respiratory/Chest: lungs clear Breasts: no masses Cardiovascular: normal peripheral pulses Abdomen: normal bowel sounds, soft, non tender Genitourinary: normal external genitalia Extremities: no clubbing 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, no motor/sensory deficits Microbiology Date/Time Source Procedure Growth Status 04/22/16 21:00 Urine,Clean Catch Urine Culture - Preliminary Gram Negative Bacillus 1 Resulted Laboratory Tests 04/24/16 04:55: White Blood Count 6.5, Red Blood Count 2.57L, Hemoglobin 8.0L, Hematocrit 25.1L , Mean Corpuscular Volume 98, Mean Corpuscular Hemoglobin 31.0, Mean Corpuscular Hemoglobin Concent 31.7L, Red Cell Distribution Width 17.3H, Platelet Count 154, Mean Platelet Volume 6.3L, Neutrophils (%) (Auto) 65.8, Lymphocytes (%) (Auto) 18.6L, Monocytes (%) (Auto) 10.5H, Eosinophils (%) (Auto ) 4.6H, Basophils (%) (Auto) 0.4, Sodium Level 135, Potassium Level 3.9, Chloride Level 92L, Carbon Dioxide Level 30, Anion Gap 13, Blood Urea Nitrogen 32H, Creatinine 5.5H, Estimat Glomerular Filtration Rate 9.6, Glucose Level 93, Uric Acid 4.4, Calcium Level 7.1L, Phosphorus Level 4.2, Magnesium Level 1.7, Total Bilirubin 0.4, Aspartate Amino Transf (AST/SGOT) 15, Alanine Aminotransferase (ALT/SGPT) 6, Alkaline Phosphatase 101, Total Protein 6.5L, Albumin 2.3L, Globulin 4.2, Albumin/Globulin Ratio 0.5L Current Medications Medications (Trade) Dose Ordered Sig/Ranjan Route PRN Reason Start Time Stop Time Status Last Admin Dose Admin Acetaminophen (Tylenol) 650 mg Q6H PRN ORAL Prn Headache/Temp > 101 04/20/16 04:15 05/20/16 04:14 04/23/16 01:14 Albuterol/ Ipratropium (DuoNeb 0.5-3(2.5)mg/3ml) 3 ml Q6H PRN HHN dyspnea 04/23/16 12:30 04/28/16 12:29 Amlodipine Besylate (Norvasc) 10 mg DAILY ORAL 04/20/16 09:00 05/20/16 08:59 04/23/16 08:50 Aspirin (ASA) 325 mg DAILY ORAL 04/20/16 09:00 05/20/16 08:59 04/24/16 08:30 Carvedilol (Coreg) 25 mg EVERY 12 HOURS ORAL 04/20/16 09:00 05/20/16 08:59 04/24/16 21:51 Clonidine HCl (Catapres) 0.1 mg Q4H PRN ORAL For High Blood Pressure 04/20/16 06:30 05/20/16 06:29 Dextrose (D10w) 1,000 ml @ 50 mls/hr Q20H IV 04/20/16 03:15 05/20/16 03:14 04/24/16 06:20 Dextrose (Dextrose 50%) STAT PRN IV Hypoglycemia 04/20/16 14:30 05/20/16 14:29 Diphenhydramine HCl (Benadryl) 25 mg Q4HR PRN IVP Itching 04/22/16 23:30 05/22/16 23:29 04/24/16 18:18 Docusate Sodium (Colace) 100 mg TID ORAL 04/20/16 09:00 05/20/16 08:59 04/24/16 18:10 Epoetin Vikas (Procrit (for ESRD on dialysis)) 3,000 units SUN-SUN-SUN SUBQ 04/24/16 21:00 05/24/16 20:59 04/24/16 21:50 Heparin Sodium (Porcine) (Heparin 5000 units/ml) 5,000 units EVERY 12 HOURS SUBQ 04/20/16 09:00 05/20/16 08:59 04/24/16 21:54 Insulin Aspart (NovoLOG) BEFORE MEALS AND HS SUBQ 04/20/16 06:30 05/20/16 06:29 04/24/16 11:51 Lactulose (Cephulac) 20 gm Q8HR ORAL 04/20/16 06:00 05/20/16 05:59 04/24/16 06:17 Morphine Sulfate (Morphine Sulfate) 1 mg Q4H PRN IVP For Pain 04/20/16 06:30 04/27/16 06:29 04/24/16 18:10 Ondansetron HCl (Zofran) 4 mg Q6H PRN IVP Nausea & Vomiting 04/20/16 08:30 05/20/16 08:29 Pantoprazole (Protonix) 40 mg DAILY ORAL 04/20/16 09:00 05/20/16 08:59 04/24/16 08:30 Polyethylene Glycol (Miralax) 17 gm HSPRN PRN ORAL Constipation 04/20/16 14:30 05/20/16 14:29 Promethazine HCl/ Dextromethorphan (Phenergan DM) 6.25 mg Q6H PRN ORAL For Cough 04/24/16 11:45 05/24/16 11:44 04/24/16 14:01 Rifaximin (Xifaxan) 550 mg EVERY 12 HOURS ORAL 04/20/16 09:00 04/27/16 08:59 04/24/16 21:49 Sevelamer Carbonate (Renvela) 1,600 mg TIAC ORAL 04/20/16 06:30 05/20/16 06:29 04/24/16 18:10 Thiamine HCl (Vitamin B1) 100 mg DAILY ORAL 04/20/16 09:00 05/20/16 08:59 04/24/16 08:30 Trazodone HCl (Desyrel) 100 mg BEDTIME ORAL 04/20/16 21:00 05/20/16 20:59 04/24/16 21:49 Zolpidem Tartrate (Ambien) 5 mg HSPRN PRN ORAL Insomnia 04/20/16 14:30 05/20/16 14:29 ANN MARIE OSULLIVAN Apr 24, 2016 23:02
[2016-04-25] VITALS: BP 143/84
[2016-04-25] MEDS: Dextrose 10% 1,000 ML IV SCH ×2 (00:55→22:19)
[2016-04-25] MEDS: DiphenhydrAMINE 50mg/ml Inj IVP PRN ×3 (00:58→22:18)
[2016-04-25] MEDS: Morphine Sulfate 2mg/ml Inj IVP PRN ×5 (00:59→22:17)
[2016-04-25 04:00] VITALS: BP 122/73
[2016-04-25] MEDS: Lactulose 20gm/30ml UDC ORAL SCH ×2 (06:00→11:46)
[2016-04-25] MEDS: NovoLOG Insulin Flexpen SUBQ SCH ×4 (06:30→21:00)
[2016-04-25 07:12] LABS: CALCIUM 7.6 mg/dL (8.6-10.2); CREATININE 4.2 mg/dL (0.5-0.9); GLOMERULAR FILTRATION RATE 13.1 mL/min (>60); POTASSIUM 3.8 mEQ/L (3.4-4.9)
[2016-04-25 07:30] LABS: MEAN CORPUSCULAR HGB CONC 31.2 G/DL (32.0-36.0); MEAN CORPUSCULAR VOLUME 99 FL (80-99); MEAN PLATELET VOLUME 6.7 FL (6.5-10.1); PLATELET COUNT 153 K/UL (150-450); RED BLOOD COUNT 2.27 M/UL (4.20-5.40); RED CELL DISTRIBUTION WIDTH 18.5 % (11.6-14.8); WHITE BLOOD COUNT 6.9 K/UL (4.8-10.8)
[2016-04-25 07:37] LABS: BILIRUBIN,DIRECT 0.2 mg/dL (0.1-0.3); TOTAL PROTEIN 6.1 g/dL (6.6-8.7)
--- NOTE | 2016-04-25 08:22 | General Progress Note ---
Assessment/Plan Assessment/Plan ASSESSMENT: 1. Elevated tumor markers. The patient with a history of elevated tumor markers , CA-199 and CA-125 were elevated. An imaging CT scan shows potential sclerosis versus metastatic neoplasm, metabolic abnormality, in addition 12 mm enhancing nodule noted nonspecific and liver, which will need to be followed up. Skeletal survey nonspecific and to obtain NM scan shows no evidence of malignancy. Ascitic results pending 2. Anemia on chronic kidney disease. ferritin 706, esr elevated, on epo 3. 12 mm nodule, liver 4. Hypertension. 5. History of alcohol abuse. 6. Abdominal pain. 7. Atelectasis. 8. Pulmonary edema. 9. Ascites. RECOMMENDATION: 1.NM whole body skeletal scan shows no e.o malignancy 2. Continue epogen sq 3. Imaging of the liver nodule every six months per GI service to monitor nodule growth every six months, which is 12 mm, which will need to be followed up. 4. Peripheral smear currently negative 5. Hemodialysis three times a week. 6. Appreciate pulm and nephro recs 7. Discussed with staff. Thank you, Fabrizio Tobar MD Subjective Constitutional: Reports: no symptoms HEENT: Reports: no symptoms Cardiovascular: Reports: no symptoms Respiratory: Reports: no symptoms Gastrointestinal/Abdominal: Reports: poor appetite Genitourinary: Reports: no symptoms Neurologic/Psychiatric: Reports: no symptoms Endocrine: Reports: no symptoms Hematologic/Lymphatic: Reports: anemia Allergies: Coded Allergies: No Known Allergies (Unverified , 09/20/15) Subjective stable, no events overnight, in bed, is comfortable Objective Last 24 Hour Vital Signs Date Time Temp Pulse Resp B/P Pulse Ox O2 Delivery O2 Flow Rate FiO2 04/25/16 07:11 98.2 04/25/16 04:00 98.2 107 20 122/73 92 Room Air 04/25/16 00:00 98.2 107 18 143/84 92 Room Air 04/24/16 21:51 108 134/74 04/24/16 20:00 98.2 108 18 134/74 99 Room Air 04/24/16 19:55 100 18 Room Air 21 04/24/16 16:00 98.2 100 18 113/66 100 Room Air 04/24/16 12:00 97.9 101 18 124/74 93 Room Air 04/24/16 10:49 Room Air 3/6/17 10:47 97.0 96 18 135/74 97 Room Air Intake and Output 04/24/16 04/25/16 19:00 07:00 Intake Total 890 ml 1190 ml Output Total 2600 ml Balance -1710 ml 1190 ml Intake Oral 240 ml 640 ml IV Total 650 ml 550 ml Hemodialysis UF 2600 ml # Voids 1 Laboratory Tests 04/25/16 05:20: White Blood Count 6.9, Red Blood Count 2.27L, Hemoglobin 7.0L, Hematocrit 22.5L , Mean Corpuscular Volume 99, Mean Corpuscular Hemoglobin 31.0, Mean Corpuscular Hemoglobin Concent 31.2L, Red Cell Distribution Width 18.5H, Platelet Count 153, Mean Platelet Volume 6.7, Neutrophils (%) (Auto) , Lymphocytes (%) (Auto) , Monocytes (%) (Auto) , Eosinophils (%) (Auto) , Basophils (%) (Auto) , Neutrophils % (Manual) [Pending], Lymphocytes % (Manual) [Pending], Platelet Estimate [Pending], Platelet Morphology [Pending], Sodium Level 134L, Potassium Level 3.8, Chloride Level 93L, Carbon Dioxide Level 27, Anion Gap 14, Blood Urea Nitrogen 21, Creatinine 4.2H, Estimat Glomerular Filtration Rate 13.1, Glucose Level 84, Calcium Level 7.6L, Total Bilirubin 0.4 , Direct Bilirubin 0.2, Aspartate Amino Transf (AST/SGOT) 22, Alanine Aminotransferase (ALT/SGPT) 8, Alkaline Phosphatase 110H, Total Protein 6.1L, Albumin 2.6L Height (Feet): 5 Height (Inches): 5.00 Weight (Pounds): 140 General Appearance: no apparent distress EENT: TMs normal Neck: normal inspection Cardiovascular: regular rhythm Respiratory/Chest: lungs clear Abdomen: normal bowel sounds Extremities: normal inspection Edema: 1+ Leg (L), 1+ Leg (R) Edema: mild edema Neurologic: alert Skin: normal pigmentation Fabrizio Tobar Apr 25, 2016 08:22
[2016-04-25] MEDS: Thiamine 100mg tab ORAL SCH (08:29)
[2016-04-25] MEDS: Carvedilol 25mg Tab ORAL SCH ×2 (08:29→22:16)
[2016-04-25] MEDS: Heparin 5000 units/ml inj SUBQ SCH ×2 (08:33→21:00)
[2016-04-25] MEDS: Rifaximin 550mg tab ORAL SCH ×2 (08:33→22:16)
[2016-04-25] MEDS: Docusate 100mg cap ORAL SCH ×2 (08:33→11:46)
[2016-04-25 08:45] VITALS: BP 129/73
[2016-04-25 09:11] LABS: ANISOCYTOSIS 2+; BAND NEUTROPHILS % (MANUAL) 0 % (0-8); BASOPHILS % (MANUAL) 0 % (0-2); EOSINOPHILS % (MANUAL) 5 % (0-3); LYMPHOCYTES % (MANUAL) 18 % (20-45); NEUTROPHILS % (MANUAL) 67 % (45-75); PLATELET ESTIMATE ADEQUATE; PLATELET MORPHOLOGY NORMAL; TOTAL CELLS COUNTED 100
[2016-04-25 09:13] LABS: HYPOCHROMASIA 1+; MACROCYTES 1+
--- NOTE | 2016-04-25 11:35 | General Progress Note ---
Assessment/Plan Status: stable Assessment/Plan Status: ESRD- HyperKalemia- Ascitis- DM HTN At Fib Anemia Plan: HD done 04/24 and next 04/26 optimize cardiac and pulmonary status- BP meds adjustment- 2 D Echo : Left ventricular ejection fraction estimated to be 70 %. Monitor lytes and renal parameters- Per consultants ? DC ? Subjective ROS Limited/Unobtainable: No Allergies: Coded Allergies: No Known Allergies (Unverified , 09/20/15) Objective Last 24 Hour Vital Signs Date Time Temp Pulse Resp B/P Pulse Ox O2 Delivery O2 Flow Rate FiO2 04/25/16 09:56 98.2 04/25/16 08:45 98.2 97 19 129/73 95 Room Air 04/25/16 08:29 107 122/73 04/25/16 08:29 107 122/73 04/25/16 07:11 98.2 04/25/16 04:00 98.2 107 20 122/73 92 Room Air 04/25/16 00:00 98.2 107 18 143/84 92 Room Air 04/24/16 21:51 108 134/74 04/24/16 20:00 98.2 108 18 134/74 99 Room Air 04/24/16 19:55 100 18 Room Air 21 04/24/16 16:00 98.2 100 18 113/66 100 Room Air 04/24/16 12:00 97.9 101 18 124/74 93 Room Air Intake and Output 04/24/16 04/25/16 18:59 06:59 Intake Total 840 ml 1190 ml Output Total 2600 ml Balance -1760 ml 1190 ml Intake Oral 240 ml 640 ml IV Total 600 ml 550 ml Hemodialysis UF 2600 ml # Voids 1 Laboratory Tests 04/25/16 05:20: White Blood Count 6.9, Red Blood Count 2.27L, Hemoglobin 7.0L, Hematocrit 22.5L , Mean Corpuscular Volume 99, Mean Corpuscular Hemoglobin 31.0, Mean Corpuscular Hemoglobin Concent 31.2L, Red Cell Distribution Width 18.5H, Platelet Count 153, Mean Platelet Volume 6.7, Neutrophils (%) (Auto) , Lymphocytes (%) (Auto) , Monocytes (%) (Auto) , Eosinophils (%) (Auto) , Basophils (%) (Auto) , Differential Total Cells Counted 100, Neutrophils % ( Manual) 67, Lymphocytes % (Manual) 18L, Monocytes % (Manual) 10, Eosinophils % ( Manual) 5H, Basophils % (Manual) 0, Band Neutrophils 0, Platelet Estimate Adequate, Platelet Morphology Normal, Hypochromasia 1+, Anisocytosis 2+, Macrocytosis 1+, Sodium Level 134L, Potassium Level 3.8, Chloride Level 93L, Carbon Dioxide Level 27, Anion Gap 14, Blood Urea Nitrogen 21, Creatinine 4.2H, Estimat Glomerular Filtration Rate 13.1, Glucose Level 84, Calcium Level 7.6L, Total Bilirubin 0.4, Direct Bilirubin 0.2, Aspartate Amino Transf (AST/SGOT) 22 , Alanine Aminotransferase (ALT/SGPT) 8, Alkaline Phosphatase 110H, Total Protein 6.1L, Albumin 2.6L Height (Feet): 5 Height (Inches): 5.00 Weight (Pounds): 140 General Appearance: no apparent distress Cardiovascular: tachycardia Respiratory/Chest: decreased breath sounds Abdomen: distended Objective other PE not changed PEPE MONTERROSO Apr 25, 2016 11:35
[2016-04-25 11:59] VITALS: BP 102/53
--- NOTE | 2016-04-25 15:22 | GI Progress Note ---
Assessment/Plan Problems: (1) GERD (gastroesophageal reflux disease) ICD Codes: K21.9 - Gastro-esophageal reflux disease without esophagitis SNOMED: 932545305 (2) Ileus ICD Codes: K56.7 - Ileus, unspecified SNOMED: 363122970 (3) Anemia ICD Codes: D64.9 - Anemia, unspecified SNOMED: 102711839 (4) ESRD (end stage renal disease) ICD Codes: N18.6 - End stage renal disease SNOMED: 32255841 (5) Ascites ICD Codes: R18.8 - Other ascites SNOMED: 134148513 Qualifiers: Qualified Codes: R18.8 - Other ascites (6) Abnormal LFTs ICD Codes: R79.89 - Other specified abnormal findings of blood chemistry SNOMED: 032452912 (7) H/O ETOH abuse ICD Codes: Z87.898 - Personal history of other specified conditions SNOMED: 013563573 Status: unchanged Status Narrative Discussed with Dr. Reyes. Assessment/Plan CA19-9 >> 78.93 CEA >> 2.1 AFP >> WNL CA 125-5 >> 80.4 H APCT reviewed >> Marked ascites resulting in abdominal pelvic distention, etiology indeterminate, see full report. Hep panel B positive GGTP >> WNL s/p paracentesis >> 3.6 L yield >> no ascites albumin collected elevated ammonia >> lactulose renal diet bowel regime ppi fu H&H, transfuse PRN fu biopsy results fu trans vaginal biopsy fu bone survey +/- colonoscopy if needed Subjective Subjective diarrhea (on lactulose) cough, improved Objective Last 24 Hour Vital Signs Date Time Temp Pulse Resp B/P Pulse Ox O2 Delivery O2 Flow Rate FiO2 04/25/16 12:12 98.0 04/25/16 11:59 98.0 84 20 102/53 95 Room Air 04/25/16 09:56 98.2 04/25/16 08:45 98.2 97 19 129/73 95 Room Air 04/25/16 08:29 107 122/73 04/25/16 08:29 107 122/73 04/25/16 04:00 98.2 107 20 122/73 92 Room Air 04/25/16 00:00 98.2 107 18 143/84 92 Room Air 04/24/16 21:51 108 134/74 04/24/16 20:00 98.2 108 18 134/74 99 Room Air 04/24/16 19:55 100 18 Room Air 21 04/24/16 16:00 98.2 100 18 113/66 100 Room Air Intake and Output 04/24/16 04/25/16 19:00 07:00 Intake Total 890 ml 1190 ml Output Total 2600 ml Balance -1710 ml 1190 ml Intake Oral 240 ml 640 ml IV Total 650 ml 550 ml Hemodialysis UF 2600 ml # Voids 1 Laboratory Tests Test 04/25/16 05:20 White Blood Count 6.9 K/UL (4.8-10.8) Red Blood Count 2.27 M/UL (4.20-5.40) L Hemoglobin 7.0 G/DL (12.0-16.0) L Hematocrit 22.5 % (37.0-47.0) L Mean Corpuscular Volume 99 FL (80-99) Mean Corpuscular Hemoglobin 31.0 PG (27.0-31.0) Mean Corpuscular Hemoglobin Concent 31.2 G/DL (32.0-36.0) L Red Cell Distribution Width 18.5 % (11.6-14.8) H Platelet Count 153 K/UL (150-450) Mean Platelet Volume 6.7 FL (6.5-10.1) Neutrophils (%) (Auto) % (45.0-75.0) Lymphocytes (%) (Auto) % (20.0-45.0) Monocytes (%) (Auto) % (1.0-10.0) Eosinophils (%) (Auto) % (0.0-3.0) Basophils (%) (Auto) % (0.0-2.0) Differential Total Cells Counted 100 Neutrophils % (Manual) 67 % (45-75) Lymphocytes % (Manual) 18 % (20-45) L Monocytes % (Manual) 10 % (1-10) Eosinophils % (Manual) 5 % (0-3) H Basophils % (Manual) 0 % (0-2) Band Neutrophils 0 % (0-8) Platelet Estimate Adequate Platelet Morphology Normal Hypochromasia 1+ Anisocytosis 2+ Macrocytosis 1+ Sodium Level 134 mEQ/L (135-145) L Potassium Level 3.8 mEQ/L (3.4-4.9) Chloride Level 93 mEQ/L (98-107) L Carbon Dioxide Level 27 mEQ/L (20-30) Anion Gap 14 (5-15) Blood Urea Nitrogen 21 mg/dL (7-23) Creatinine 4.2 mg/dL (0.5-0.9) H Estimat Glomerular Filtration Rate 13.1 mL/min (>60) Glucose Level 84 mg/dL (74-106) Calcium Level 7.6 mg/dL (8.6-10.2) L Total Bilirubin 0.4 mg/dL (0.0-1.2) Direct Bilirubin 0.2 mg/dL (0.1-0.3) Aspartate Amino Transf (AST/SGOT) 22 U/L (5-40) Alanine Aminotransferase (ALT/SGPT) 8 U/L (3-33) Alkaline Phosphatase 110 U/L (35-104) H Total Protein 6.1 g/dL (6.6-8.7) L Albumin 2.6 g/dL (3.5-5.2) L Height (Feet): 5 Height (Inches): 5.00 Weight (Pounds): 140 General Appearance: no apparent distress, alert Cardiovascular: normal rate Respiratory/Chest: lungs clear, normal breath sounds Abdominal Exam: normal bowel sounds, non tender, soft Objective Procedure: CT Abdomen Pelvis w/Contrast Indications: Abdominal pain and distention Impression: Marked ascites resulting in abdominal pelvic distention, etiology indeterminate Both dilated and nondilated small bowel, favor ileus over obstruction. Pathologic mural thickening of one or more small bowel loops not excludable. Collapsed colon and rectum. Pathologic mural thickening not excludable. Enlarged, heterogeneous liver compatible with chronic hepatocellular disease. 12 mm enhancing nodule described is nonspecific, may be benign or malignant Gallbladder wall thickening most likely secondary to presence of ascites. Cholecystitis not excludable Bilateral end-stage renal disease Escobedo catheter Diffuse body wall edema compatible with anasarca Pleural effusions, nonspecific, may be secondary to presence of ascites Pericardial effusion, nonspecific Anasarca Pulmonary bibasal subsegmental atelectasis Cardiomegaly Diffuse skeletal sclerosis may represent metastatic neoplasm or metabolic abnormality Degenerative spondylosis Autumn Lutz N.P. Apr 25, 2016 15:22
[2016-04-25 16:00] VITALS: BP 102/65
--- NOTE | 2016-04-25 16:34 | Internal Med Progress Note ---
Subjective Date of Service: Apr 25, 2016 Physician Name Javier Alvarez Attending Physician Jackson Albright MD Current Medications Medications (Trade) Dose Ordered Sig/Ranjan Route PRN Reason Start Time Stop Time Status Last Admin Dose Admin Acetaminophen (Tylenol) 650 mg Q6H PRN ORAL Prn Headache/Temp > 101 04/20/16 04:15 05/20/16 04:14 04/25/16 08:57 Albuterol/ Ipratropium (DuoNeb 0.5-3(2.5)mg/3ml) 3 ml Q6H PRN HHN dyspnea 04/23/16 12:30 04/28/16 12:29 Amlodipine Besylate (Norvasc) 10 mg DAILY ORAL 04/20/16 09:00 05/20/16 08:59 04/25/16 08:29 Aspirin (ASA) 325 mg DAILY ORAL 04/20/16 09:00 05/20/16 08:59 04/25/16 08:29 Carvedilol (Coreg) 25 mg EVERY 12 HOURS ORAL 04/20/16 09:00 05/20/16 08:59 04/25/16 08:29 Clonidine HCl (Catapres) 0.1 mg Q4H PRN ORAL For High Blood Pressure 04/20/16 06:30 05/20/16 06:29 Dextrose (D10w) 1,000 ml @ 50 mls/hr Q20H IV 04/20/16 03:15 05/20/16 03:14 04/25/16 00:55 Dextrose (Dextrose 50%) STAT PRN IV Hypoglycemia 04/20/16 14:30 05/20/16 14:29 Diphenhydramine HCl (Benadryl) 25 mg Q4HR PRN IVP Itching 04/22/16 23:30 05/22/16 23:29 04/25/16 11:41 Docusate Sodium (Colace) 100 mg TID ORAL 04/20/16 09:00 05/20/16 08:59 04/24/16 18:10 Epoetin Vikas (Procrit (for ESRD on dialysis)) 3,000 units SUN-WED-SUN SUBQ 04/24/16 21:00 05/24/16 20:59 04/24/16 21:50 Heparin Sodium (Porcine) (Heparin 5000 units/ml) 5,000 units EVERY 12 HOURS SUBQ 04/20/16 09:00 05/20/16 08:59 04/24/16 21:54 Insulin Aspart (NovoLOG) BEFORE MEALS AND HS SUBQ 04/20/16 06:30 05/20/16 06:29 04/25/16 11:39 Lactulose (Cephulac) 20 gm Q8HR ORAL 04/20/16 06:00 05/20/16 05:59 04/24/16 06:17 Morphine Sulfate (Morphine Sulfate) 1 mg Q4H PRN IVP For Pain 04/20/16 06:30 04/27/16 06:29 04/25/16 11:42 Ondansetron HCl (Zofran) 4 mg Q6H PRN IVP Nausea & Vomiting 04/20/16 08:30 05/20/16 08:29 Pantoprazole (Protonix) 40 mg DAILY ORAL 04/20/16 09:00 05/20/16 08:59 04/25/16 08:29 Polyethylene Glycol (Miralax) 17 gm HSPRN PRN ORAL Constipation 04/20/16 14:30 05/20/16 14:29 Promethazine HCl/ Dextromethorphan (Phenergan DM) 6.25 mg Q6H PRN ORAL For Cough 04/24/16 11:45 05/24/16 11:44 04/24/16 14:01 Rifaximin (Xifaxan) 550 mg EVERY 12 HOURS ORAL 04/20/16 09:00 04/27/16 08:59 04/24/16 21:49 Sevelamer Carbonate (Renvela) 1,600 mg TIAC ORAL 04/20/16 06:30 05/20/16 06:29 04/25/16 11:41 Thiamine HCl (Vitamin B1) 100 mg DAILY ORAL 04/20/16 09:00 05/20/16 08:59 04/25/16 08:29 Trazodone HCl (Desyrel) 100 mg BEDTIME ORAL 04/20/16 21:00 05/20/16 20:59 04/24/16 21:49 Zolpidem Tartrate (Ambien) 5 mg HSPRN PRN ORAL Insomnia 04/20/16 14:30 05/20/16 14:29 Allergies: Coded Allergies: No Known Allergies (Unverified , 09/20/15) ROS Limited/Unobtainable: No Constitutional: Reports: no symptoms HEENT: Reports: no symptoms Cardiovascular: Reports: no symptoms Respiratory: Reports: no symptoms Gastrointestinal/Abdominal: Reports: abdomen distended, abdominal pain Genitourinary: Reports: no symptoms Neurologic/Psychiatric: Reports: no symptoms Subjective 61 YO F admitted with abdominal distention and pain. Now ascites. Cover for Int Med-Dr Albright. S/P paracentesis 04/18/16. S/P EGD 04/21/16. Objective Last Vital Signs Date Time Temp Pulse Resp B/P Pulse Ox O2 Delivery O2 Flow Rate FiO2 04/25/16 12:12 98.0 04/25/16 11:59 84 20 102/53 95 Room Air 04/24/16 19:55 21 04/21/16 19:29 2.0 Laboratory Tests Test 04/25/16 05:20 White Blood Count 6.9 K/UL (4.8-10.8) Red Blood Count 2.27 M/UL (4.20-5.40) L Hemoglobin 7.0 G/DL (12.0-16.0) L Hematocrit 22.5 % (37.0-47.0) L Mean Corpuscular Volume 99 FL (80-99) Mean Corpuscular Hemoglobin 31.0 PG (27.0-31.0) Mean Corpuscular Hemoglobin Concent 31.2 G/DL (32.0-36.0) L Red Cell Distribution Width 18.5 % (11.6-14.8) H Platelet Count 153 K/UL (150-450) Mean Platelet Volume 6.7 FL (6.5-10.1) Neutrophils (%) (Auto) % (45.0-75.0) Lymphocytes (%) (Auto) % (20.0-45.0) Monocytes (%) (Auto) % (1.0-10.0) Eosinophils (%) (Auto) % (0.0-3.0) Basophils (%) (Auto) % (0.0-2.0) Differential Total Cells Counted 100 Neutrophils % (Manual) 67 % (45-75) Lymphocytes % (Manual) 18 % (20-45) L Monocytes % (Manual) 10 % (1-10) Eosinophils % (Manual) 5 % (0-3) H Basophils % (Manual) 0 % (0-2) Band Neutrophils 0 % (0-8) Platelet Estimate Adequate Platelet Morphology Normal Hypochromasia 1+ Anisocytosis 2+ Macrocytosis 1+ Sodium Level 134 mEQ/L (135-145) L Potassium Level 3.8 mEQ/L (3.4-4.9) Chloride Level 93 mEQ/L (98-107) L Carbon Dioxide Level 27 mEQ/L (20-30) Anion Gap 14 (5-15) Blood Urea Nitrogen 21 mg/dL (7-23) Creatinine 4.2 mg/dL (0.5-0.9) H Estimat Glomerular Filtration Rate 13.1 mL/min (>60) Glucose Level 84 mg/dL (74-106) Calcium Level 7.6 mg/dL (8.6-10.2) L Total Bilirubin 0.4 mg/dL (0.0-1.2) Direct Bilirubin 0.2 mg/dL (0.1-0.3) Aspartate Amino Transf (AST/SGOT) 22 U/L (5-40) Alanine Aminotransferase (ALT/SGPT) 8 U/L (3-33) Alkaline Phosphatase 110 U/L (35-104) H Total Protein 6.1 g/dL (6.6-8.7) L Albumin 2.6 g/dL (3.5-5.2) L Microbiology Date/Time Source Procedure Growth Status 04/22/16 21:00 Urine,Clean Catch Urine Culture - Preliminary Escherichia Coli Resulted Intake and Output 04/24/16 04/25/16 19:00 07:00 Intake Total 890 ml 1190 ml Output Total 2600 ml Balance -1710 ml 1190 ml Intake Oral 240 ml 640 ml IV Total 650 ml 550 ml Hemodialysis UF 2600 ml # Voids 1 Objective General Appearance: WD/WN, no apparent distress, alert EENT: PERRL/EOMI, normal ENT inspection, TMs normal Neck: non-tender, normal alignment, supple Cardiovascular: normal peripheral pulses, normal rate, regular rhythm, no gallop/murmur, no JVD Respiratory/Chest: chest wall non-tender, lungs clear, normal breath sounds, no respiratory distress, no accessory muscle use Abdomen: decreased bowel sounds, distended, guarding, tender Extremities: normal range of motion Edema: moderate edema Neurologic: gambling monitor II-XII grossly normal Skin: normal pigmentation, warm/dry Assessment/Plan Problem List: (1) Cirrhosis of liver (2) Abnormal LFTs Assessment & Plan: See GI note-Dr Reyes. Await liver studies-see GI note. (3) Abdominal pain (4) Ascites Assessment & Plan: S/P paracentesis (3.6L)-await results. See GI note. (5) ESRD (end stage renal disease) Assessment & Plan: Next hemodialysis 04/26/16. See nephrology note. (6) HTN (hypertension) Assessment & Plan: Cont coreg and norvasc. (7) CHF (congestive heart failure) Assessment & Plan: see cardiology note. (8) Anemia Assessment & Plan: S/P EGD 04/21/16. See GI note. (9) Gastritis Assessment & Plan: Cont protonix per GI Status: progressing Assessment/Plan Discharge planning: [facility] dialysis on 04/26/16 JAVIER ALVAREZ Apr 25, 2016 16:34
[2016-04-25 20:00] VITALS: BP 138/78
[2016-04-25] MEDS: TraZODone 100mg tab ORAL SCH (22:16)
--- NOTE | 2016-04-25 23:14 | Pulmonology Progress Note ---
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 Subjective Allergies: Coded Allergies: No Known Allergies (Unverified , 09/20/15) Objective Last 24 Hour Vital Signs Date Time Temp Pulse Resp B/P Pulse Ox O2 Delivery O2 Flow Rate FiO2 04/25/16 22:16 100 136/87 04/25/16 20:00 98.1 100 20 138/78 98 Room Air 04/25/16 18:35 85 18 Room Air 21 04/25/16 16:00 97.9 88 16 102/65 95 04/25/16 12:12 98.0 04/25/16 11:59 98.0 84 20 102/53 95 Room Air 04/25/16 09:56 98.2 04/25/16 08:45 98.2 97 19 129/73 95 Room Air 04/25/16 08:29 107 122/73 04/25/16 08:29 107 122/73 04/25/16 04:00 98.2 107 20 122/73 92 Room Air 04/25/16 00:00 98.2 107 18 143/84 92 Room Air Intake and Output 04/24/16 04/25/16 19:00 07:00 Intake Total 890 ml 1190 ml Output Total 2600 ml Balance -1710 ml 1190 ml Intake Oral 240 ml 640 ml IV Total 650 ml 550 ml Hemodialysis UF 2600 ml # Voids 1 Objective General Appearance: WD/WN HEENT: normocephalic, atraumatic, PERRL Respiratory/Chest: lungs clear Breasts: no masses Cardiovascular: normal peripheral pulses Abdomen: normal bowel sounds, soft, non tender Genitourinary: normal external genitalia Extremities: no clubbing 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, no motor/sensory deficits Laboratory Tests 04/25/16 05:20: White Blood Count 6.9, Red Blood Count 2.27L, Hemoglobin 7.0L, Hematocrit 22.5L , Mean Corpuscular Volume 99, Mean Corpuscular Hemoglobin 31.0, Mean Corpuscular Hemoglobin Concent 31.2L, Red Cell Distribution Width 18.5H, Platelet Count 153, Mean Platelet Volume 6.7, Neutrophils (%) (Auto) , Lymphocytes (%) (Auto) , Monocytes (%) (Auto) , Eosinophils (%) (Auto) , Basophils (%) (Auto) , Differential Total Cells Counted 100, Neutrophils % ( Manual) 67, Lymphocytes % (Manual) 18L, Monocytes % (Manual) 10, Eosinophils % ( Manual) 5H, Basophils % (Manual) 0, Band Neutrophils 0, Platelet Estimate Adequate, Platelet Morphology Normal, Hypochromasia 1+, Anisocytosis 2+, Macrocytosis 1+, Sodium Level 134L, Potassium Level 3.8, Chloride Level 93L, Carbon Dioxide Level 27, Anion Gap 14, Blood Urea Nitrogen 21, Creatinine 4.2H, Estimat Glomerular Filtration Rate 13.1, Glucose Level 84, Calcium Level 7.6L, Total Bilirubin 0.4, Direct Bilirubin 0.2, Aspartate Amino Transf (AST/SGOT) 22 , Alanine Aminotransferase (ALT/SGPT) 8, Alkaline Phosphatase 110H, Total Protein 6.1L, Albumin 2.6L Current Medications Medications (Trade) Dose Ordered Sig/Ranjan Route PRN Reason Start Time Stop Time Status Last Admin Dose Admin Acetaminophen (Tylenol) 650 mg Q6H PRN ORAL Prn Headache/Temp > 101 04/20/16 04:15 05/20/16 04:14 04/25/16 08:57 Albuterol/ Ipratropium (DuoNeb 0.5-3(2.5)mg/3ml) 3 ml Q6H PRN HHN dyspnea 04/23/16 12:30 04/28/16 12:29 Amlodipine Besylate (Norvasc) 10 mg DAILY ORAL 04/20/16 09:00 05/20/16 08:59 04/25/16 08:29 Aspirin (ASA) 325 mg DAILY ORAL 04/20/16 09:00 05/20/16 08:59 04/25/16 08:29 Carvedilol (Coreg) 25 mg EVERY 12 HOURS ORAL 04/20/16 09:00 05/20/16 08:59 04/25/16 22:16 Clonidine HCl (Catapres) 0.1 mg Q4H PRN ORAL For High Blood Pressure 04/20/16 06:30 05/20/16 06:29 Dextrose (D10w) 1,000 ml @ 50 mls/hr Q20H IV 04/20/16 03:15 05/20/16 03:14 04/25/16 22:19 Dextrose (Dextrose 50%) STAT PRN IV Hypoglycemia 04/20/16 14:30 05/20/16 14:29 Diphenhydramine HCl (Benadryl) 25 mg Q4HR PRN IVP Itching 04/22/16 23:30 05/22/16 23:29 04/25/16 22:18 Epoetin Vikas (Procrit (for ESRD on dialysis)) 3,000 units SUN-SUN-SUN SUBQ 04/24/16 21:00 05/24/16 20:59 04/24/16 21:50 Heparin Sodium (Porcine) (Heparin 5000 units/ml) 5,000 units EVERY 12 HOURS SUBQ 04/20/16 09:00 05/20/16 08:59 04/24/16 21:54 Insulin Aspart (NovoLOG) BEFORE MEALS AND HS SUBQ 04/20/16 06:30 05/20/16 06:29 04/25/16 17:29 Morphine Sulfate (Morphine Sulfate) 1 mg Q4H PRN IVP For Pain 04/20/16 06:30 04/27/16 06:29 04/25/16 22:17 Ondansetron HCl (Zofran) 4 mg Q6H PRN IVP Nausea & Vomiting 04/20/16 08:30 05/20/16 08:29 Pantoprazole (Protonix) 40 mg DAILY ORAL 04/20/16 09:00 05/20/16 08:59 04/25/16 08:29 Polyethylene Glycol (Miralax) 17 gm HSPRN PRN ORAL Constipation 04/20/16 14:30 05/20/16 14:29 Promethazine HCl/ Dextromethorphan (Phenergan DM) 6.25 mg Q6H PRN ORAL For Cough 04/24/16 11:45 05/24/16 11:44 04/24/16 14:01 Rifaximin (Xifaxan) 550 mg EVERY 12 HOURS ORAL 04/20/16 09:00 04/27/16 08:59 04/25/16 22:16 Sevelamer Carbonate (Renvela) 1,600 mg TIAC ORAL 04/20/16 06:30 05/20/16 06:29 04/25/16 17:27 Thiamine HCl (Vitamin B1) 100 mg DAILY ORAL 04/20/16 09:00 05/20/16 08:59 04/25/16 08:29 Trazodone HCl (Desyrel) 100 mg BEDTIME ORAL 04/20/16 21:00 05/20/16 20:59 04/25/16 22:16 Zolpidem Tartrate (Ambien) 5 mg HSPRN PRN ORAL Insomnia 04/20/16 14:30 05/20/16 14:29 ANN MARIE OSULLIVAN Apr 25, 2016 23:14
[2016-04-26] VITALS (7 sets, daily range): BP systolic 113–145; BP diastolic 62–86
[2016-04-26] MEDS: Morphine Sulfate 2mg/ml Inj IVP PRN ×3 (03:34→13:22)
[2016-04-26] MEDS: DiphenhydrAMINE 50mg/ml Inj IVP PRN (03:34)
[2016-04-26 04:25] LABS: MEAN CORPUSCULAR HEMOGLOBIN 31.2 PG (27.0-31.0); MEAN CORPUSCULAR HGB CONC 32.2 G/DL (32.0-36.0); MEAN CORPUSCULAR VOLUME 97 FL (80-99); MEAN PLATELET VOLUME 5.9 FL (6.5-10.1); PLATELET COUNT 169 K/UL (150-450); RED BLOOD COUNT 2.42 M/UL (4.20-5.40); RED CELL DISTRIBUTION WIDTH 18.1 % (11.6-14.8); WHITE BLOOD COUNT 7.5 K/UL (4.8-10.8)
[2016-04-26 04:54] LABS: CALCIUM 7.6 mg/dL (8.6-10.2); GLOMERULAR FILTRATION RATE 10.7 mL/min (>60); POTASSIUM 4.1 mEQ/L (3.4-4.9)
[2016-04-26] MEDS: NovoLOG Insulin Flexpen SUBQ SCH ×3 (06:30→16:54)
[2016-04-26] MEDS: Thiamine 100mg tab ORAL SCH (08:23)
--- NOTE | 2016-04-26 08:29 | General Progress Note ---
Assessment/Plan Assessment/Plan ASSESSMENT: 1. Elevated tumor markers. The patient with a history of elevated tumor markers , CA-199 and CA-125 were elevated. An imaging CT scan shows potential sclerosis versus metastatic neoplasm, metabolic abnormality, in addition 12 mm enhancing nodule noted nonspecific and liver, which will need to be followed up. Skeletal survey nonspecific and to obtain NM scan shows no evidence of malignancy. Ascitic results show no abnormalities 2. Anemia on chronic kidney disease. ferritin 706, esr elevated, on epo 3. 12 mm nodule, liver 4. Hypertension. 5. History of alcohol abuse. 6. Abdominal pain. 7. Atelectasis. 8. Pulmonary edema. 9. Ascites. RECOMMENDATION: 1.NM whole body skeletal scan shows no e/o malignancy 2. Continue epogen sq 3. Imaging of the liver nodule every six months per GI service to monitor nodule growth every six months, which is 12 mm, which will need to be followed up. 4. Peripheral smear shows no abnormalities 5. Hemodialysis three times a week. 6. Appreciate pulm and nephro recs 7. Does not appear patient has any malignancy 8. Follow from oncology perspective Thank you, Fabrizoi Tobar MD Subjective Constitutional: Reports: no symptoms HEENT: Reports: no symptoms Cardiovascular: Reports: no symptoms Respiratory: Reports: no symptoms Gastrointestinal/Abdominal: Reports: poor fluid intake Genitourinary: Reports: no symptoms Neurologic/Psychiatric: Reports: no symptoms Endocrine: Reports: no symptoms Hematologic/Lymphatic: Reports: anemia Allergies: Coded Allergies: No Known Allergies (Unverified , 09/20/15) Subjective stable, no events overnight, in bed, remains comfortable Objective Last 24 Hour Vital Signs Date Time Temp Pulse Resp B/P Pulse Ox O2 Delivery O2 Flow Rate FiO2 04/26/16 07:50 94 18 Room Air 21 04/26/16 05:15 96.8 94 20 127/72 96 Room Air 04/26/16 05:15 Room Air 04/26/16 04:04 99.3 04/26/16 04:00 98.7 99 18 143/82 92 Room Air 04/26/16 00:00 99.3 104 20 144/86 94 Room Air 04/25/16 22:16 100 136/87 04/25/16 20:00 98.1 100 20 138/78 98 Room Air 04/25/16 18:35 85 18 Room Air 21 04/25/16 16:00 97.9 88 16 102/65 95 04/25/16 11:59 98.0 84 20 102/53 95 Room Air 04/25/16 09:56 98.2 04/25/16 08:45 98.2 97 19 129/73 95 Room Air 04/25/16 08:29 107 122/73 04/25/16 08:29 107 122/73 Intake and Output 04/25/16 04/26/16 19:00 07:00 Intake Total 710 ml 760 ml Balance 710 ml 760 ml Intake Oral 360 ml 360 ml IV Total 350 ml 400 ml # Voids 1 Laboratory Tests 04/26/16 03:45: White Blood Count 7.5, Red Blood Count 2.42L, Hemoglobin 7.5L, Hematocrit 23.4L , Mean Corpuscular Volume 97, Mean Corpuscular Hemoglobin 31.2H, Mean Corpuscular Hemoglobin Concent 32.2, Red Cell Distribution Width 18.1H, Platelet Count 169, Mean Platelet Volume 5.9L, Neutrophils (%) (Auto) , Lymphocytes (%) (Auto) , Monocytes (%) (Auto) , Eosinophils (%) (Auto) , Basophils (%) (Auto) , Sodium Level 131L, Potassium Level 4.1, Chloride Level 92L, Carbon Dioxide Level 25, Anion Gap 14, Blood Urea Nitrogen 33H, Creatinine 5.0H, Estimat Glomerular Filtration Rate 10.7, Glucose Level 102, Calcium Level 7.6L Height (Feet): 5 Height (Inches): 5.00 Weight (Pounds): 140 General Appearance: no apparent distress EENT: TMs normal Neck: supple Cardiovascular: normal rate Respiratory/Chest: no respiratory distress Abdomen: no organomegaly Extremities: non-tender Edema: 1+ Leg (L), 1+ Leg (R) Edema: mild edema Neurologic: alert Skin: normal pigmentation Fabrizio Tobar Apr 26, 2016 08:29
[2016-04-26] MEDS: Heparin 5000 units/ml inj SUBQ SCH (09:00)
[2016-04-26] MEDS: Rifaximin 550mg tab ORAL SCH (09:00)
[2016-04-26] MEDS: Carvedilol 25mg Tab ORAL SCH (09:00)
--- NOTE | 2016-04-26 11:43 | GI Progress Note ---
Assessment/Plan Problems: (1) GERD (gastroesophageal reflux disease) ICD Codes: K21.9 - Gastro-esophageal reflux disease without esophagitis SNOMED: 000267961 (2) Ileus ICD Codes: K56.7 - Ileus, unspecified SNOMED: 791985736 (3) Anemia ICD Codes: D64.9 - Anemia, unspecified SNOMED: 343072520 (4) ESRD (end stage renal disease) ICD Codes: N18.6 - End stage renal disease SNOMED: 53673496 (5) Ascites ICD Codes: R18.8 - Other ascites SNOMED: 960602622 Qualifiers: Qualified Codes: R18.8 - Other ascites (6) Abnormal LFTs ICD Codes: R79.89 - Other specified abnormal findings of blood chemistry SNOMED: 272068877 (7) H/O ETOH abuse ICD Codes: Z87.898 - Personal history of other specified conditions SNOMED: 106422528 Status: unchanged Status Narrative Discussed with Dr. Reyes. Assessment/Plan CA19-9 >> 78.93 CEA >> 2.1 AFP >> WNL CA 125-5 >> 80.4 H APCT reviewed >> Marked ascites resulting in abdominal pelvic distention, etiology indeterminate, see full report. Hep panel B positive GGTP >> WNL s/p paracentesis >> 3.6 L yield >> no ascites albumin collected fu biopsy results >> mild chronic antral gastritis elevated ammonia >> lactulose renal diet bowel regime ppi fu H&H, transfuse PRN fu trans vaginal biopsy fu bone survey +/- colonoscopy if needed Subjective Subjective diarrhea (on lactulose) cough, improved Objective Last 24 Hour Vital Signs Date Time Temp Pulse Resp B/P Pulse Ox O2 Delivery O2 Flow Rate FiO2 04/26/16 09:16 Room Air 04/26/16 09:15 96.8 98 18 145/72 96 Room Air 04/26/16 08:54 96.8 04/26/16 08:00 96.0 93 20 113/62 96 Room Air 04/26/16 07:50 94 18 Room Air 21 04/26/16 05:15 96.8 94 20 127/72 96 Room Air 04/26/16 05:15 Room Air 04/26/16 04:00 98.7 99 18 143/82 92 Room Air 04/26/16 00:00 99.3 104 20 144/86 94 Room Air 04/25/16 22:16 100 136/87 04/25/16 20:00 98.1 100 20 138/78 98 Room Air 04/25/16 18:35 85 18 Room Air 21 04/25/16 16:00 97.9 88 16 102/65 95 04/25/16 11:59 98.0 84 20 102/53 95 Room Air Intake and Output 04/25/16 04/26/16 19:00 07:00 Intake Total 710 ml 760 ml Balance 710 ml 760 ml Intake Oral 360 ml 360 ml IV Total 350 ml 400 ml # Voids 1 Laboratory Tests Test 04/26/16 03:45 White Blood Count 7.5 K/UL (4.8-10.8) Red Blood Count 2.42 M/UL (4.20-5.40) L Hemoglobin 7.5 G/DL (12.0-16.0) L Hematocrit 23.4 % (37.0-47.0) L Mean Corpuscular Volume 97 FL (80-99) Mean Corpuscular Hemoglobin 31.2 PG (27.0-31.0) H Mean Corpuscular Hemoglobin Concent 32.2 G/DL (32.0-36.0) Red Cell Distribution Width 18.1 % (11.6-14.8) H Platelet Count 169 K/UL (150-450) Mean Platelet Volume 5.9 FL (6.5-10.1) L Neutrophils (%) (Auto) % (45.0-75.0) Lymphocytes (%) (Auto) % (20.0-45.0) Monocytes (%) (Auto) % (1.0-10.0) Eosinophils (%) (Auto) % (0.0-3.0) Basophils (%) (Auto) % (0.0-2.0) Sodium Level 131 mEQ/L (135-145) L Potassium Level 4.1 mEQ/L (3.4-4.9) Chloride Level 92 mEQ/L (98-107) L Carbon Dioxide Level 25 mEQ/L (20-30) Anion Gap 14 (5-15) Blood Urea Nitrogen 33 mg/dL (7-23) H Creatinine 5.0 mg/dL (0.5-0.9) H Estimat Glomerular Filtration Rate 10.7 mL/min (>60) Glucose Level 102 mg/dL (74-106) Calcium Level 7.6 mg/dL (8.6-10.2) L Height (Feet): 5 Height (Inches): 5.00 Weight (Pounds): 140 General Appearance: no apparent distress, alert Cardiovascular: normal rate Respiratory/Chest: normal breath sounds, no respiratory distress Abdominal Exam: normal bowel sounds, non tender, soft, ascites Objective Procedure: CT Abdomen Pelvis w/Contrast Indications: Abdominal pain and distention Impression: Marked ascites resulting in abdominal pelvic distention, etiology indeterminate Both dilated and nondilated small bowel, favor ileus over obstruction. Pathologic mural thickening of one or more small bowel loops not excludable. Collapsed colon and rectum. Pathologic mural thickening not excludable. Enlarged, heterogeneous liver compatible with chronic hepatocellular disease. 12 mm enhancing nodule described is nonspecific, may be benign or malignant Gallbladder wall thickening most likely secondary to presence of ascites. Cholecystitis not excludable Bilateral end-stage renal disease Escobedo catheter Diffuse body wall edema compatible with anasarca Pleural effusions, nonspecific, may be secondary to presence of ascites Pericardial effusion, nonspecific Anasarca Pulmonary bibasal subsegmental atelectasis Cardiomegaly Diffuse skeletal sclerosis may represent metastatic neoplasm or metabolic abnormality Degenerative spondylosis Autumn Lutz N.P. Apr 26, 2016 11:43
--- NOTE | 2016-04-26 12:55 | Internal Med Progress Note ---
Subjective Date of Service: Apr 26, 2016 Physician Name Javier Alvarez Attending Physician Jackson Albright MD Current Medications Medications (Trade) Dose Ordered Sig/Ranjan Route PRN Reason Start Time Stop Time Status Last Admin Dose Admin Acetaminophen (Tylenol) 650 mg Q6H PRN ORAL Prn Headache/Temp > 101 04/20/16 04:15 05/20/16 04:14 04/25/16 08:57 Albuterol/ Ipratropium (DuoNeb 0.5-3(2.5)mg/3ml) 3 ml Q6H PRN HHN dyspnea 04/23/16 12:30 04/28/16 12:29 Amlodipine Besylate (Norvasc) 10 mg DAILY ORAL 04/20/16 09:00 05/20/16 08:59 04/25/16 08:29 Aspirin (ASA) 325 mg DAILY ORAL 04/20/16 09:00 05/20/16 08:59 04/26/16 08:24 Carvedilol (Coreg) 25 mg EVERY 12 HOURS ORAL 04/20/16 09:00 05/20/16 08:59 04/25/16 22:16 Clonidine HCl (Catapres) 0.1 mg Q4H PRN ORAL For High Blood Pressure 04/20/16 06:30 05/20/16 06:29 Dextrose (D10w) 1,000 ml @ 50 mls/hr Q20H IV 04/20/16 03:15 05/20/16 03:14 04/25/16 22:19 Dextrose (Dextrose 50%) STAT PRN IV Hypoglycemia 04/20/16 14:30 05/20/16 14:29 Diphenhydramine HCl (Benadryl) 25 mg Q4HR PRN IVP Itching 04/22/16 23:30 05/22/16 23:29 04/26/16 03:34 Epoetin Vikas (Procrit (for ESRD on dialysis)) 3,000 units MON-WED-SUN SUBQ 04/24/16 21:00 05/24/16 20:59 04/24/16 21:50 Heparin Sodium (Porcine) (Heparin 5000 units/ml) 5,000 units EVERY 12 HOURS SUBQ 04/20/16 09:00 05/20/16 08:59 04/24/16 21:54 Insulin Aspart (NovoLOG) BEFORE MEALS AND HS SUBQ 04/20/16 06:30 05/20/16 06:29 04/25/16 17:29 Morphine Sulfate (Morphine Sulfate) 1 mg Q4H PRN IVP For Pain 04/20/16 06:30 04/27/16 06:29 04/26/16 08:24 Ondansetron HCl (Zofran) 4 mg Q6H PRN IVP Nausea & Vomiting 04/20/16 08:30 05/20/16 08:29 Pantoprazole (Protonix) 40 mg DAILY ORAL 04/20/16 09:00 05/20/16 08:59 04/26/16 08:24 Polyethylene Glycol (Miralax) 17 gm HSPRN PRN ORAL Constipation 04/20/16 14:30 05/20/16 14:29 Promethazine HCl/ Dextromethorphan (Phenergan DM) 6.25 mg Q6H PRN ORAL For Cough 04/24/16 11:45 05/24/16 11:44 04/24/16 14:01 Rifaximin (Xifaxan) 550 mg EVERY 12 HOURS ORAL 04/20/16 09:00 04/27/16 08:59 04/25/16 22:16 Sevelamer Carbonate (Renvela) 1,600 mg TIAC ORAL 04/20/16 06:30 05/20/16 06:29 04/26/16 12:01 Thiamine HCl (Vitamin B1) 100 mg DAILY ORAL 04/20/16 09:00 05/20/16 08:59 04/26/16 08:23 Trazodone HCl (Desyrel) 100 mg BEDTIME ORAL 04/20/16 21:00 05/20/16 20:59 04/25/16 22:16 Zolpidem Tartrate (Ambien) 5 mg HSPRN PRN ORAL Insomnia 04/20/16 14:30 05/20/16 14:29 Allergies: Coded Allergies: No Known Allergies (Unverified , 09/20/15) Subjective 61 YO F admitted with abdominal distention and pain. Now ascites. Cover for Int Med-Dr Albright. S/P paracentesis 04/18/16. S/P EGD 04/21/16. Await discharge to [facility] after dialysis today. Objective Last Vital Signs Date Time Temp Pulse Resp B/P Pulse Ox O2 Delivery O2 Flow Rate FiO2 04/26/16 09:16 Room Air 04/26/16 09:15 96.8 98 18 145/72 96 04/26/16 07:50 21 04/21/16 19:29 2.0 Laboratory Tests Test 04/26/16 03:45 White Blood Count 7.5 K/UL (4.8-10.8) Red Blood Count 2.42 M/UL (4.20-5.40) L Hemoglobin 7.5 G/DL (12.0-16.0) L Hematocrit 23.4 % (37.0-47.0) L Mean Corpuscular Volume 97 FL (80-99) Mean Corpuscular Hemoglobin 31.2 PG (27.0-31.0) H Mean Corpuscular Hemoglobin Concent 32.2 G/DL (32.0-36.0) Red Cell Distribution Width 18.1 % (11.6-14.8) H Platelet Count 169 K/UL (150-450) Mean Platelet Volume 5.9 FL (6.5-10.1) L Neutrophils (%) (Auto) % (45.0-75.0) Lymphocytes (%) (Auto) % (20.0-45.0) Monocytes (%) (Auto) % (1.0-10.0) Eosinophils (%) (Auto) % (0.0-3.0) Basophils (%) (Auto) % (0.0-2.0) Sodium Level 131 mEQ/L (135-145) L Potassium Level 4.1 mEQ/L (3.4-4.9) Chloride Level 92 mEQ/L (98-107) L Carbon Dioxide Level 25 mEQ/L (20-30) Anion Gap 14 (5-15) Blood Urea Nitrogen 33 mg/dL (7-23) H Creatinine 5.0 mg/dL (0.5-0.9) H Estimat Glomerular Filtration Rate 10.7 mL/min (>60) Glucose Level 102 mg/dL (74-106) Calcium Level 7.6 mg/dL (8.6-10.2) L Intake and Output 04/25/16 04/26/16 19:00 07:00 Intake Total 710 ml 810 ml Balance 710 ml 810 ml Intake Oral 360 ml 360 ml IV Total 350 ml 450 ml # Voids 1 Objective General Appearance: WD/WN, no apparent distress, alert EENT: PERRL/EOMI, normal ENT inspection, TMs normal Neck: non-tender, normal alignment, supple Cardiovascular: normal peripheral pulses, normal rate, regular rhythm, no gallop/murmur, no JVD Respiratory/Chest: chest wall non-tender, lungs clear, normal breath sounds, no respiratory distress, no accessory muscle use Abdomen: decreased bowel sounds, distended, guarding, tender Extremities: normal range of motion Edema: moderate edema 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 Await liver studies-see GI note. (3) Abdominal pain (4) Ascites Assessment & Plan: S/P paracentesis (3.6L)-await results. See GI note. (5) ESRD (end stage renal disease) Assessment & Plan: Next hemodialysis 04/26/16. See nephrology note. (6) HTN (hypertension) Assessment & Plan: Cont coreg and norvasc. (7) CHF (congestive heart failure) Assessment & Plan: see cardiology note. (8) Anemia Assessment & Plan: S/P EGD 04/21/16. See GI note. (9) Gastritis Assessment & Plan: Cont protonix per GI Status: stable Assessment/Plan Discharge planning: [facility] dialysis today 04/26/16 JAVIER ALVAREZ Apr 26, 2016 12:55
--- NOTE | 2016-04-26 13:16 | General Progress Note ---
Assessment/Plan Status: unchanged Assessment/Plan Status: ESRD- HyperKalemia- Ascitis- DM HTN At Fib Anemia Plan: HD t 04/26 done optimize cardiac and pulmonary status- BP meds adjustment- 2 D Echo : Left ventricular ejection fraction estimated to be 70 %. Monitor lytes and renal parameters- Per consultants ? DC ? Subjective ROS Limited/Unobtainable: No Constitutional: Reports: malaise Allergies: Coded Allergies: No Known Allergies (Unverified , 09/20/15) Objective Last 24 Hour Vital Signs Date Time Temp Pulse Resp B/P Pulse Ox O2 Delivery O2 Flow Rate FiO2 04/26/16 12:00 97.0 94 18 121/70 96 Room Air 04/26/16 09:16 Room Air 04/26/16 09:15 96.8 98 18 145/72 96 Room Air 04/26/16 08:54 96.8 04/26/16 08:00 96.0 93 20 113/62 96 Room Air 04/26/16 07:50 94 18 Room Air 21 04/26/16 05:15 96.8 94 20 127/72 96 Room Air 04/26/16 05:15 Room Air 04/26/16 04:00 98.7 99 18 143/82 92 Room Air 04/26/16 00:00 99.3 104 20 144/86 94 Room Air 04/25/16 22:16 100 136/87 04/25/16 20:00 98.1 100 20 138/78 98 Room Air 04/25/16 18:35 85 18 Room Air 21 04/25/16 16:00 97.9 88 16 102/65 95 Intake and Output 04/25/16 04/26/16 19:00 07:00 Intake Total 710 ml 810 ml Balance 710 ml 810 ml Intake Oral 360 ml 360 ml IV Total 350 ml 450 ml # Voids 1 Laboratory Tests 04/26/16 03:45: White Blood Count 7.5, Red Blood Count 2.42L, Hemoglobin 7.5L, Hematocrit 23.4L , Mean Corpuscular Volume 97, Mean Corpuscular Hemoglobin 31.2H, Mean Corpuscular Hemoglobin Concent 32.2, Red Cell Distribution Width 18.1H, Platelet Count 169, Mean Platelet Volume 5.9L, Neutrophils (%) (Auto) , Lymphocytes (%) (Auto) , Monocytes (%) (Auto) , Eosinophils (%) (Auto) , Basophils (%) (Auto) , Sodium Level 131L, Potassium Level 4.1, Chloride Level 92L, Carbon Dioxide Level 25, Anion Gap 14, Blood Urea Nitrogen 33H, Creatinine 5.0H, Estimat Glomerular Filtration Rate 10.7, Glucose Level 102, Calcium Level 7.6L Height (Feet): 5 Height (Inches): 5.00 Weight (Pounds): 140 General Appearance: no apparent distress Objective other PE not changed PEPE MONTERROSO Apr 26, 2016 13:16
[2016-04-26] MEDS ORDERED: NS 275ml ONE (18:56)
[2016-04-26] MEDS ORDERED: Tubing Blood Filter IV ONE (18:56)
--- NOTE | 2016-05-12 20:24 | Discharge Summary ---
Discharge Summary Hospital Course Date of Admission Apr 17, 2016 at 12:48 Date of Discharge Apr 26, 2016 at 18:57 Admitting Diagnosis HYPERKALEMIA, ABDOMINAL PAIN HPI Isabelle Kay is a 61 year old female who was admitted on Apr 17, 2016 at 12 :48 for Hyperkalemia, Abdominal Pain Hospital Course [id number] Discharge Discharge Disposition Patient was discharged to SNF/Subacute Facility(03) Discharge Diagnoses: Keena Campa NP May 12, 2016 20:24
--- NOTE | 2016-05-13 03:28 | Discharge Summary 2 SIG ---
DATE OF ADMISSION: 04/17/2016 DATE OF DISCHARGE: 04/26/2016 CONSULTANTS: 1. Kevyn Dillard M.D. 2. Archie Sargent M.D. 3. Bailee Shaw M.D. 4. Fabrizio Tobar M.D. 5. Ayush Reyes M.D. BRIEF HOSPITAL COURSE: The patient is a 61-year-old female, who came in complaining of abdominal pain and distention. Apparently, she was admitted to [facility] two weeks ago and was admitted to [facility]. She began to experience increasing abdominal distention and pain on urination. She was then taken to [facility] emergency room and was admitted for increasing abdominal distention and pain to rule out spontaneous bacterial peritonitis. She has a history of end-stage renal disease, on hemodialysis every Sunday, Sunday, and Sunday and history of liver cirrhosis, hypertension, and alcohol dependence. Dr. Sargent was consulted for inpatient hemodialysis management. Dr. Dillard was consulted for evaluation of shortness of breath probably secondary to ascites as well as diastolic dysfunction. The patient had an echocardiogram, which showed significant tricuspid regurgitation and aortic regurgitation. A repeat echocardiogram showed ejection fraction of 70% and severe pulmonary hypertension. She was also followed by Dr. Shaw and was given respiratory treatment. Chest x-ray showed bilateral congestive changes and left upper lobe atelectasis. She was followed by Dr. Reyes for evaluation of anemia and abdominal pain. CT of the abdomen showed marked ascites with dilated and nondilated small bowel. She underwent an upper endoscopy on 04/24/2016 with findings of no obvious large esophageal varices, no gastric varices, and limited examination given retained food in the stomach. The patient has gastritis status post biopsy. Dr. Tobar was consulted for evaluation of elevated tumor markers with elevated CA-99 of 79 as well as CA-125 of 80. CT showed enhancing nodule nonspecific on liver. Bone scan showed no evidence of malignancy. She was given Epogen for anemia. She was recommended to repeat imaging of the liver nodule every six months to monitor nodule growth. She underwent paracentesis on 04/18/2016 yielding 3.6 liters of fluid and had an episode of acute anemia requiring 1 unit of packed RBC blood transfusion. She was eventually discharged to [facility]. FINAL DIAGNOSES: 1. Acute ascites status post paracentesis. 2. Cirrhosis of liver. 3. Acute anemia requiring blood transfusion. 4. Anemia of chronic disease. 5. Hypertension. 6. End-stage renal disease, on hemodialysis. 7. Gastritis. 8. Abnormal liver transaminases. 9. History of ethanol abuse. 10. Ileus. 11. Gastroesophageal reflux disease. 12. Pulmonary edema. 13. Chronic congestive heart failure with diastolic dysfunction. 14. Valvular heart disease. 15. Pleural effusion. 16. Acute on chronic hepatic encephalopathy. 17. Elevated thyroid stimulating hormone. 18. Hyperkalemia. 19. Atrial fibrillation. Adair Huerta M.D. I have been assigned to dictate discharge summary on this account and I was not involved in the patient's management. Keena Campa N.P. DR: CATRACHITO JOB#: [id number] CC:
== END 2016-04-26 18:57 | DRG 441 ==
LOC: EDBD 10:19 → EMR 11:07 → EDBEDREQ 12:43 → 2E 12:48 → EDBEDREQ 13:39 → 2E 16:05 → 4W 04-20 03:05
PROC: 0W9G30Z Drainage of Peritoneal Cavity with Drainage Device, Percutaneous Approach (ICD-10-PCS; principal; 2016-04-18)
PROC: 5A1D60Z (ICD-10-PCS; 2016-04-18)
PROC: 0DB68ZX Excision of Stomach, Via Natural or Artificial Opening Endoscopic, Diagnostic (ICD-10-PCS; 2016-04-18)
PROC: 30233N1 Transfusion of Nonautologous Red Blood Cells into Peripheral Vein, Percutaneous Approach (ICD-10-PCS; 2016-04-25)
DX: K72.90 Hepatic failure, unspecified without coma (principal); N18.6 End stage renal disease; I12.0 Hypertensive chronic kidney disease with stage 5 chronic kidney disease or end stage renal disease; I24.9 Acute ischemic heart disease, unspecified; I31.3 Pericardial effusion (noninflammatory); K56.7 Ileus, unspecified; J98.11 Atelectasis; R04.2 Hemoptysis; I50.32 Chronic diastolic (congestive) heart failure; K70.31 Alcoholic cirrhosis of liver with ascites; K21.9 Gastro-esophageal reflux disease without esophagitis; Z99.2 Dependence on renal dialysis; K29.70 Gastritis, unspecified, without bleeding; F17.200 Nicotine dependence, unspecified, uncomplicated; E11.9 Type 2 diabetes mellitus without complications; I48.91 Unspecified atrial fibrillation; E87.5 Hyperkalemia; M47.899 Other spondylosis, site unspecified; F10.21 Alcohol dependence, in remission; I08.2 Rheumatic disorders of both aortic and tricuspid valves; R97.0 Elevated carcinoembryonic antigen [CEA]; D63.1 Anemia in chronic kidney disease; I27.2 Other secondary pulmonary hypertension
CPT/HCPCS: 36415; 71010; 74177; 76856; 76942; 77075; 78306; 80048; 80053; 80061; 80076; 81003; 82040; 82105; 82140; 82378; 82550; 82553; 82728; 82947; 82962; 82977; 83036; 83540; 83550; 83605; 83690; 83735; 83880; 84100; 84165; 84443; 84484; 84550; 85007; 85025; 85060; 85610; 85651; 85730; 86140; 86301; 86304; 86703; 86705; 86709; 86803; 86850; 86870; 86900; 86901; 86904; 86920; 87040; 87045; 87081; 87086; 87181; 87340; 87493; 88104; 89050; 93005; 93306; 94003; 94150; 94664; 94760; J1815; J2405; J7620

== ENCOUNTER 2016-05-03 02:43 | Inpatient (IN) | payer MEDICARE, MEDICAID ==
[~2016-05-03] VITALS: Ht 167.6 cm; Wt 59.0 kg
[2016-05-03] VITALS (9 sets, daily range): BP systolic 113–137; BP diastolic 66–86
[~2016-05-03 02:43] MED LIST changes: +ASPIRIN325 MG ORAL; +HYDRALAZINE HCL50 MG ORAL; +TRAMADOL HCL50 MG ORAL; +TRAZODONE HCL100 MG ORAL; +VITAMIN B-12500 MCG ORAL; +ZOFRAN ODT4 MG ORAL
[2016-05-03] MEDS ORDERED: Morphine Sulfate 4mg/ml Inj IVP ONE (03:00)
[2016-05-03] MEDS ORDERED: Tubing IV Cassette IV ONE (03:25)
[2016-05-03 03:35] LABS: MEAN CORPUSCULAR HEMOGLOBIN 30.9 PG (27.0-31.0); MEAN CORPUSCULAR VOLUME 100 FL (80-99); MEAN PLATELET VOLUME 5.3 FL (6.5-10.1); PLATELET COUNT 341 K/UL (150-450); RED BLOOD COUNT 2.14 M/UL (4.20-5.40); RED CELL DISTRIBUTION WIDTH 17.9 % (11.6-14.8); WHITE BLOOD COUNT 8.5 K/UL (4.8-10.8)
[2016-05-03 03:48] LABS: ALANINE AMINOTRANSFERASE 6 U/L (3-33); ALBUMIN/GLOBULIN RATIO 0.5 (1.0-2.7); ANION GAP 14 (5-15); ASPARTATE AMINO TRANSFERASE 21 U/L (5-40); CALCIUM 7.3 mg/dL (8.6-10.2); CARBON DIOXIDE 30 mEQ/L (20-30); CHLORIDE 92 mEQ/L (98-107); CREATININE 3.5 mg/dL (0.5-0.9); GLOMERULAR FILTRATION RATE 16.2 mL/min (>60); HEMOLYSIS 78; POTASSIUM 5.1 mEQ/L (3.4-4.9); SODIUM 136 mEQ/L (135-145); TOTAL PROTEIN 7.5 g/dL (6.6-8.7)
[2016-05-03 03:51] LABS: TROPONIN I < 0.30 ng/mL (<=0.30)
[2016-05-03 03:59] LABS: CKMB < 1.5 ng/mL (< 3.8)
[2016-05-03 04:11] LABS: INR 1.4 (0.9-1.1); PROTHROMBIN TIME 14.7 SEC (9.30-11.50)
--- NOTE | 2016-05-03 06:05 | Emergency Room Report ---
History of Present Illness General Chief Complaint: Chest Pain Source: Patient, EMS Present Illness HPI 61-year-old female presents ED complaining of chest pain. States symptoms started approximately one hour ago at alf. Pain is midsternal, pressure-like, 8 out 10, nonradiating. Patient was given aspirin and nitroglycerin by EMS without relief. She notes history of end-stage renal disease and is on dialysis. Patient has not missed any dialysis sessions. Denies smoking or drug use. No other aggravating or leading factors. Denies any other associated symptoms Allergies: Coded Allergies: No Known Allergies (Unverified , 09/20/15) Patient History Past Medical History: DM, HTN, renal disease, dialysis Past Surgical History: none Pertinent Family History: none Social History: Denies: alcohol use, drug use, smoking Last Menstrual Period: Menopause Now: No Immunizations: UTD Reviewed Nursing Documentation: PMH: Agreed, PSxH: Agreed Nursing Documentation-PMH Past Medical History: No History, Except For Hx Cardiac Problems: Yes - MD, Anemia, hyperkalemia, Hyperlipidemia Hx Hypertension: Yes Hx Diabetes: Yes Hx Cancer: No Hx Gastrointestinal Problems: Yes - Kidney failure (ESRD), GERD Hx Dialysis: Yes - MWF Hx Cerebrovascular Accident: No - Renal failure Review of Systems All Other Systems: negative except mentioned in HPI Physical Exam Vital Signs Date Time Temp Pulse Resp B/P Pulse Ox O2 Delivery O2 Flow Rate FiO2 05/03/16 02:27 99.0 90 18 128/91 98 Room Air [id number] EP Interpretation: reviewed, normal General Appearance: no apparent distress, alert, GCS 15, non-toxic Head: normocephalic, atraumatic Eyes: bilateral eye PERRL, bilateral eye normal inspection ENT: hearing grossly normal, normal pharynx, no angioedema, normal voice Neck: full range of motion, supple/symm/no masses Respiratory: chest non-tender, lungs clear, normal breath sounds, speaking full sentences Cardiovascular #1: regular rate, rhythm, no edema Cardiovascular #2: 2+ carotid (R), 2+ carotid (L), 2+ radial (R), 2+ radial (L) , 2+ dorsalis pedis (R), 2+ dorsalis pedis (L) Gastrointestinal: normal bowel sounds, non tender, soft, non-distended, no guarding, no rebound Rectal: deferred Genitourinary: normal inspection, no CVA tenderness Musculoskeletal: back normal, gait/station normal, normal range of motion, non- tender Neurologic: alert, oriented x3, responsive, motor strength/tone normal, sensory intact, speech normal Psychiatric: judgement/insight normal, memory normal, mood/affect normal, no suicidal/homicidal ideation Reflexes: 3+ bicep (R), 3+ bicep (L), 3+ tricep (R), 3+ tricep (L), 3+ knee (R) , 3+ knee (L) Skin: normal color, no rash, warm/dry, well hydrated Lymphatic: no adenopathy Medical Decision Making Diagnostic Impression: Primary Impression: ESRD (end stage renal disease) Additional Impressions: ACS (acute coronary syndrome) Anemia Qualified Codes: D64.9 - Anemia, unspecified ER Course Hospital Course 61-year-old female presents ED complaining of chest pain Differential diagnoses include: MD/unstable angina, contusion, muscle strain, PTX, rib fracture Clinical course Patient placed on stretcher. on school lunch monitor. After initial history and physical I ordered labs, EKG, chest x-ray, morphine labs reviewed- no leukocytosis, hb 6.6, BUN/Cr elevated, K ok, trop negative Chest x-ray- cardiomegaly EKG - NSR no acute changes PRBCs ordered Case discussed with Dr. Albright and he agreed to accept the patient to his service for further care and support I. I feel this is a highly complex case requiring extensive working including EKG/Rhythm strip, Xray/CT/US, Blood/urine lab work, repeat exams while in ED, and administration of strong opiates/narcotics for pain control, admission to hospital or close patient follow up. Diagnosis - ACS, ESRD on dialysis, anemia admitted to telemetry in serious condition Labs Test 05/03/16 03:20 White Blood Count 8.5 K/UL (4.8-10.8) Red Blood Count 2.14 M/UL (4.20-5.40) Hemoglobin 6.6 G/DL (12.0-16.0) Hematocrit 21.4 % (37.0-47.0) Mean Corpuscular Volume 100 FL (80-99) Mean Corpuscular Hemoglobin 30.9 PG (27.0-31.0) Mean Corpuscular Hemoglobin Concent 31.0 G/DL (32.0-36.0) Red Cell Distribution Width 17.9 % (11.6-14.8) Platelet Count 341 K/UL (150-450) Mean Platelet Volume 5.3 FL (6.5-10.1) Neutrophils (%) (Auto) % (45.0-75.0) Lymphocytes (%) (Auto) % (20.0-45.0) Monocytes (%) (Auto) % (1.0-10.0) Eosinophils (%) (Auto) % (0.0-3.0) Basophils (%) (Auto) % (0.0-2.0) Prothrombin Time 14.7 SEC (9.30-11.50) Prothromb Time International Ratio 1.4 (0.9-1.1) Activated Partial Thromboplast Time 37 SEC (23-33) Sodium Level 136 mEQ/L (135-145) Potassium Level 5.1 mEQ/L (3.4-4.9) Chloride Level 92 mEQ/L (98-107) Carbon Dioxide Level 30 mEQ/L (20-30) Anion Gap 14 (5-15) Blood Urea Nitrogen 21 mg/dL (7-23) Creatinine 3.5 mg/dL (0.5-0.9) Estimat Glomerular Filtration Rate 16.2 mL/min (>60) Glucose Level 74 mg/dL (74-106) Calcium Level 7.3 mg/dL (8.6-10.2) Total Bilirubin 0.5 mg/dL (0.0-1.2) Aspartate Amino Transf (AST/SGOT) 21 U/L (5-40) Alanine Aminotransferase (ALT/SGPT) 6 U/L (3-33) Alkaline Phosphatase 90 U/L (35-104) Total Creatine Kinase 31 U/L (26-140) Creatine Kinase MB < 1.5 ng/mL (< 3.8) Creatine Kinase MB Relative Index 4.8 Troponin I < 0.30 ng/mL (<=0.30) Pro-B-Type Natriuretic Peptide 34344 pg/mL (0-125) Total Protein 7.5 g/dL (6.6-8.7) Albumin 2.6 g/dL (3.5-5.2) Globulin 4.9 g/dL Albumin/Globulin Ratio 0.5 (1.0-2.7) EKG Diagnostic Results Rate: normal Rhythm: NSR ST Segments: no acute changes ASA given to the pt in ED: No - given by ems Rhythm Strip Diag. Results EP Interpretation: yes Rhythm: NSR, no PVC's, no ectopy Chest X-Ray Diagnostic Results EP Interpretation: Yes Findings: no consolidation, no effusion, no pneumothorax, no acute cardiopulmonary disease Number of Views: 1 Last Vital Signs Date Time Temp Pulse Resp B/P Pulse Ox O2 Delivery O2 Flow Rate FiO2 05/03/16 04:59 97 14 118/72 97 Room Air 05/03/16 03:56 98.9 Status: improved Disposition: ADMITTED INPATIENT Condition: Serious Referrals: NON PHYSICIAN (PCP) LICHA GARCIA M.D. May 03, 2016 06:05
[2016-05-03] MEDS ORDERED: Miralax 17gm pkt ORAL PRN (07:15)
[2016-05-03] MEDS ORDERED: Mylanta II UD 30ml ORAL PRN (07:15)
[2016-05-03] MEDS ORDERED: DuoNeb 0.5-3(2.5)mg/3ml neb HHN PRN (07:15)
[2016-05-03] MEDS: Heparin 5000 units/ml inj SUBQ SCH ×2 (09:00→21:35)
[2016-05-03] MEDS ORDERED: Calcitriol 0.25mcg Cap ORAL SCH (09:00)
[2016-05-03] MEDS ORDERED: Losartan 50mg tab ORAL SCH (09:00)
[2016-05-03] MEDS ORDERED: Lisinopril 10mg tab ORAL SCH (09:00)
[2016-05-03] MEDS: Calcitriol 0.25mcg Cap ORAL SCH (09:28)
[2016-05-03] MEDS: Morphine Sulfate 2mg/ml Inj IVP PRN ×2 (10:35→16:33)
--- NOTE | 2016-05-03 11:41 | Diagnostic Imaging Report ---
Indication: Chest pain Technique: One view of the chest Comparison: 04/24/2016 Findings: The heart is enlarged. There is suggestion of some infiltrate at the right lung base. Atelectasis or scarring is again demonstrated in the left perihilar region. Previous small right pleural effusion. Cervical spine fusion hardware incidentally noted Impression: Right basilar infiltrate and probably pleural fluid Cardiomegaly This agrees with the preliminary interpretation provided by the emergency room physician
[2016-05-03] MEDS: NovoLOG Insulin Flexpen SUBQ SCH ×3 (12:20→21:00)
--- NOTE | 2016-05-03 14:31 | Consultation ---
Consult Note Consult Note asked to eval for dialysis management- Lilliana know to me from her recent admit interviewed, examined, data reviewed- daughter at bed side, discussed lilliana last dialysed 05/02- fistula right arm 61-year-old female presents ED complaining of chest pain. States symptoms started approximately one hour ago at correction. Pain is midsternal, pressure-like, 8 out 10, nonradiating. Patient was given aspirin and nitroglycerin by EMS without relief. She notes history of end-stage renal disease and is on dialysis. Patient has not missed any dialysis sessions. Denies smoking or drug use. No other aggravating or leading factors. Denies any other associated symptoms Past Medical History: DM, HTN, renal disease, dialysis Hx Cardiac Problems: Yes - MD, Anemia, hyperkalemia, Hyperlipidemia Hx Hypertension: Yes Hx Diabetes: Yes Hx Gastrointestinal Problems: Yes - Kidney failure (ESRD), GERD Hx Dialysis: Yes - MWF . Assessment/Plan status: ESRD- HyperKalemia- Ascitis- worsening severe Anemia DM HTN At Fib Plan: HD as needed- optimize cardiac and pulmonary status- BP meds adjustment- 2 D Echo previous admission: Left ventricular ejection fraction estimated to be 70 %. Monitor lytes and renal parameters- Per consultants Transfuse Paracynthesis, Ascitis aspiration PEPE MONTERROSO May 03, 2016 14:31
--- NOTE | 2016-05-03 15:01 | GI Initial Consult Note ---
History of Present Illness General Date patient seen: May 03, 2016 Time patient seen: 13:00 Reason for Hospitalization: Chest Pain Referring physician: ROSS HODGES Reason for Consultation: ANEMIA Present Illness HPI 61-year-old female presents ED complaining of chest pain. States symptoms started approximately one hour ago at senior care. Pain is midsternal, pressure-like, 8 out 10, nonradiating. Patient was given aspirin and nitroglycerin by EMS without relief. She notes history of end-stage renal disease and is on dialysis. Patient has not missed any dialysis sessions. Denies smoking or drug use. No other aggravating or leading factors. Denies any other associated symptoms. GI CONSULT: HPI as noted above. GI consulted for anemia. Pt was recently discharged from [facility] s/p EGD with gastritis. s/p paracentesis yielding 3.6L on . She presents today anemia Hgb 6.6. Date of Service: 04/17/16 SURGEON: Ayush Reyes M.D. PROCEDURE: Upper endoscopy with biopsy. INSTRUMENT: Olympus adult flexible upper endoscope. INDICATION: Cirrhosis and anemia. SUMMARY FINDINGS: 1. No obvious large esophageal varices. 2. No gastric varices. 3. Limited examination of the body of the stomach given retained food material in the stomach. 4. Gastritis, status post biopsy. Service Date: 04/18/16 Procedure: US Thoracentesis/Paracentesis Indications: Ascites Impression: Successful ultrasound-guided paracentesis, yielding 3.6 liters of fluid Home Meds Reported Medications Hydralazine Hcl* (HYDRALAZINE HCL*) 50 Mg Tablet, 50 MG ORAL EVERY 8 HOURS, TAB 04/17/16 Cyanocobalamin (Vitamin B-12)* (VITAMIN B-12*) 500 Mcg Tablet, 1000 MCG ORAL DAILY, #30 TAB 0 Refills 04/17/16 Clonidine Hcl* (CATAPRES*) 0.1 Mg Tablet, 0.1 MG ORAL EVERY 6 HOURS, TAB 04/17/16 Tramadol Hcl* (ULTRAM*) 50 Mg Tablet, 50 MG ORAL Q6H Y for For Pain, #30 TAB 0 Refills 04/17/16 Trazodone Hcl* (DESYREL*) 100 Mg Tablet, 100 MG ORAL BEDTIME, TAB 04/17/16 Ondansetron Odt* (ZOFRAN ODT*) 4 Mg Tab.rapdis, 4 MG ORAL Q6H Y for Nausea & Vomiting, #30 TAB 04/17/16 Aspirin* (ASPIRIN*) 325 Mg Tablet, 325 MG ORAL DAILY, TAB 04/17/16 Thiamine Hcl* (VITAMIN B-1*) 100 Mg Tablet, 100 MG ORAL DAILY, #30 TAB 0 Refills 09/20/15 Cinacalcet Hcl (SENSIPAR) 90 Mg Tablet, 90 MG PO DAILY, TAB 09/20/15 Calcitriol (ROCALTROL) 0.25 Mcg Capsule, 0.25 MCG PO DAILY, CAP 09/20/15 Calcitriol (ROCALTROL) 0.25 Mcg Capsule, 0.25 MCG PO, CAP 09/20/15 Sevelamer Hcl (RENAGEL) 800 Mg Tablet, 800 MG ORAL THREE TIMES A DAY, #90 TAB 0 Refills 09/20/15 Metoclopramide Hcl* (REGLAN*) 5 Mg Tablet, 5 MG ORAL EVERY 6 HOURS, TAB 09/20/15 Omeprazole (OMEPRAZOLE) 20 Mg Capsule.dr, 20 MG ORAL DAILY, CAP 09/20/15 Insulin Aspart* (NOVOLOG*) 100 Unit/1 Ml Insuln.pen, 0 SUBQ, #1 EA 0 Refills 09/20/15 Mag Hydrox/Al Hydrox/Simeth (Maalox Advanced Suspension) 355 Ml Oral.susp, 30 ML PO EVERY 12 HOURS, ML 09/20/15 Melatonin (MELATONIN 3 MG TABLET) 1 Each Tablet, 1 TAB ORAL BEDTIME Y for Insomnia, TAB 09/20/15 Enoxaparin* (LOVENOX*) 30 Mg/0.3 Ml Inj, 30 MG SUBQ DAILY, #30 EA 0 Refills 09/20/15 Diphenoxylate HCl/Atropine (Lomotil Tablet) 1 Each Tablet, 1 EACH PO Q4HR, TAB 09/20/15 Lisinopril (LISINOPRIL*) 5 Mg Tablet, 5 MG ORAL DAILY, TAB 09/20/15 Lactulose (LACTULOSE*) 20 Gm/30 Ml Solution, 30 ML ORAL Q8HR, ML 0 Refills 09/20/15 Cephalexin* (KEFLEX*) 250 Mg Capsule, 250 MG ORAL BID, #28 CAP 0 Refills 09/20/15 Hydrocodone Bit/Acetaminophen 5-325* ([place] 5-325*) 1 Each Tablet, 1 TAB ORAL Q4H Y for For Pain, TAB 0 Refills 09/20/15 Guaifenesin/Dextromethorphan (GUAIFENESIN-DM SOLUTION) 5 Ml Liquid, 10 ML PO Q4HR, ML 09/20/15 Docusate Sodium* (DOCUSIL*) 100 Mg Capsule, 100 MG ORAL Q12HR, CAP 09/20/15 Hydromorphone Hcl (DILAUDID) 1 Mg/1 Ml Liquid, 1 MG PO NEEDED, ML 09/20/15 Dextrose 50 % in Water (Dextrose 50%-Water Syringe) 50 Ml Syringe, 50 ML IV Y for Hypoglycemia, EA 09/20/15 Losartan Potassium (COZAAR) 100 Mg Tablet, 100 MG ORAL DAILY, TAB 09/20/15 Clonidine Hcl* (CATAPRES*) 0.1 Mg Tablet, 0.1 MG ORAL EVERY 6 HOURS Y for AD, TAB 09/20/15 Doxazosin Mesylate* (CARDURA*) 1 Mg Tablet, 2 MG ORAL DAILY, TAB 09/20/15 Calcium Carbonate/Vitamin D3 (CALCIUM 600 + VIT D 400 TABLET) 1 Each Tablet, 1 EACH PO, TAB 09/20/15 Diphenhydramine Hcl* (BENADRYL*) 25 Mg Capsule, 25 MG ORAL Q6H Y for Itching, CAP 09/20/15 Lorazepam* (ATIVAN*) 0.5 Mg Tablet, 0.5 MG ORAL Q4HR Y for AD, TAB 09/20/15 Amlodipine Besylate* (AMLODIPINE BESYLATE*) 10 Mg Tablet, 10 MG ORAL DAILY, TAB 09/20/15 Acetaminophen (Acetaminophen) 650 Mg/20.3 Ml Solution, 650 MG ORAL Q6H Y for Prn Headache/Temp > 101, ML 0 Refills 09/20/15 Med list reviewed/reconciled: Yes Allergies: Coded Allergies: No Known Allergies (Unverified , 09/20/15) Patient History History Provided By: Patient, Medical Record PMH Narrative Past Medical History: DM, HTN, renal disease, dialysis Past Surgical History: none Pertinent Family History: none Social History: Denies: alcohol use, drug use, smoking Last Menstrual Period: Menopause Now: No Immunizations: UTD Reviewed Nursing Documentation: PMH: Agreed, PSxH: Agreed Nursing Documentation-PMH Past Medical History: No History, Except For Hx Cardiac Problems: Yes - DE, Anemia, hyperkalemia, Hyperlipidemia Hx Hypertension: Yes Hx Diabetes: Yes Hx Cancer: No Hx Gastrointestinal Problems: Yes - Kidney failure (ESRD), GERD Hx Dialysis: Yes - MWF Hx Cerebrovascular Accident: No - Renal failure Social History: Denies: alcohol use, drug use, other, smoking Review of Systems All Other Systems: negative except mentioned in HPI Physical Exam Vital Signs Date Time Temp Pulse Resp B/P Pulse Ox O2 Delivery O2 Flow Rate FiO2 05/03/16 02:27 99.0 90 18 128/91 98 Room Air Sp02 EP Interpretation: reviewed Labs Laboratory Tests Test 05/03/16 03:20 White Blood Count 8.5 K/UL (4.8-10.8) Red Blood Count 2.14 M/UL (4.20-5.40) L Hemoglobin 6.6 G/DL (12.0-16.0) *L Hematocrit 21.4 % (37.0-47.0) L Mean Corpuscular Volume 100 FL (80-99) H Mean Corpuscular Hemoglobin 30.9 PG (27.0-31.0) Mean Corpuscular Hemoglobin Concent 31.0 G/DL (32.0-36.0) L Red Cell Distribution Width 17.9 % (11.6-14.8) H Platelet Count 341 K/UL (150-450) Mean Platelet Volume 5.3 FL (6.5-10.1) L Neutrophils (%) (Auto) % (45.0-75.0) Lymphocytes (%) (Auto) % (20.0-45.0) Monocytes (%) (Auto) % (1.0-10.0) Eosinophils (%) (Auto) % (0.0-3.0) Basophils (%) (Auto) % (0.0-2.0) Prothrombin Time 14.7 SEC (9.30-11.50) H Prothromb Time International Ratio 1.4 (0.9-1.1) H Activated Partial Thromboplast Time 37 SEC (23-33) H Sodium Level 136 mEQ/L (135-145) Potassium Level 5.1 mEQ/L (3.4-4.9) H Chloride Level 92 mEQ/L (98-107) L Carbon Dioxide Level 30 mEQ/L (20-30) Anion Gap 14 (5-15) Blood Urea Nitrogen 21 mg/dL (7-23) Creatinine 3.5 mg/dL (0.5-0.9) H Estimat Glomerular Filtration Rate 16.2 mL/min (>60) Glucose Level 74 mg/dL (74-106) Calcium Level 7.3 mg/dL (8.6-10.2) L Total Bilirubin 0.5 mg/dL (0.0-1.2) Aspartate Amino Transf (AST/SGOT) 21 U/L (5-40) Alanine Aminotransferase (ALT/SGPT) 6 U/L (3-33) Alkaline Phosphatase 90 U/L (35-104) Total Creatine Kinase 31 U/L (26-140) Creatine Kinase MB < 1.5 ng/mL (< 3.8) Creatine Kinase MB Relative Index 4.8 Troponin I < 0.30 ng/mL (<=0.30) Pro-B-Type Natriuretic Peptide 64886 pg/mL (0-125) H Total Protein 7.5 g/dL (6.6-8.7) Albumin 2.6 g/dL (3.5-5.2) L Globulin 4.9 g/dL Albumin/Globulin Ratio 0.5 (1.0-2.7) L General Appearance: well appearing, no apparent distress, alert, thin Head: normocephalic EENT: normal ENT inspection Neck: supple Respiratory: normal breath sounds, no respiratory distress Cardiovascular: normal rate Gastrointestinal: normal inspection, normal bowel sounds Rectal: deferred Musculoskeletal: normal inspection Neurologic: normal inspection, alert, oriented x3, responsive Psychiatric: normal inspection, judgement/insight normal, memory normal Skin: normal inspection, normal color, no rash, warm/dry Lymphatic: normal inspection, no adenopathy Current Medications Current Medications Medications (Trade) Dose Ordered Sig/Ranjan Route PRN Reason Start Time Stop Time Status Last Admin Dose Admin Acetaminophen (Tylenol) 650 mg Q4H PRN ORAL fever 05/03/16 07:15 06/02/16 07:14 Al Hydroxide/Mg Hydroxide (Mylanta II) 30 ml Q6H PRN ORAL dyspepsia 05/03/16 07:15 06/02/16 07:14 Albuterol/ Ipratropium (DuoNeb 0.5-3(2.5)mg/3ml) 3 ml Q6H PRN HHN dyspnea 05/03/16 07:15 05/08/16 07:14 Amlodipine Besylate (Norvasc) 10 mg DAILY ORAL 05/03/16 09:00 06/02/16 08:59 05/03/16 09:28 Aspirin (ASA) 325 mg DAILY ORAL 05/03/16 09:00 06/02/16 08:59 Calcitriol (Rocatrol) 0.25 mcg DAILY ORAL 05/03/16 09:00 06/02/16 08:59 05/03/16 09:28 Clonidine HCl (Catapres) 0.1 mg Q4H PRN ORAL For High Blood Pressure 05/03/16 07:15 06/02/16 07:14 Dextrose (Dextrose 50%) STAT PRN IV Hypoglycemia 05/03/16 07:15 06/02/16 07:14 Furosemide (Lasix) 100 mg EVERY 8 HOURS PRN IV dyspnea 05/03/16 07:15 06/02/16 07:14 Heparin Sodium (Porcine) (Heparin 5000 units/ml) 5,000 units EVERY 12 HOURS SUBQ 05/03/16 09:00 06/02/16 08:59 Insulin Aspart (NovoLOG) BEFORE MEALS AND HS SUBQ 05/03/16 11:30 06/02/16 11:29 Lisinopril (Zestril) 5 mg DAILY ORAL 05/03/16 09:00 06/02/16 08:59 05/03/16 09:28 Losartan Potassium (Cozaar) 100 mg DAILY ORAL 05/03/16 09:00 06/02/16 08:59 UNV Metoclopramide HCl (Reglan) 5 mg TIAC ORAL 05/03/16 16:30 06/02/16 11:29 Morphine Sulfate (Morphine Sulfate) 1 mg Q4H PRN IVP For Pain 05/03/16 07:15 05/10/16 07:14 05/03/16 10:35 Ondansetron HCl (Zofran) 4 mg Q6H PRN IVP Nausea & Vomiting 05/03/16 07:15 06/02/16 07:14 Polyethylene Glycol (Miralax) 17 gm HSPRN PRN ORAL Constipation 05/03/16 07:15 06/02/16 07:14 Trazodone HCl (Desyrel) 100 mg BEDTIME ORAL 05/03/16 21:00 06/02/16 20:59 Zolpidem Tartrate (Ambien) 5 mg HSPRN PRN ORAL Insomnia 05/03/16 07:15 06/02/16 07:14 GI: Plan Problems: (1) ESRD (end stage renal disease) (2) Anemia (3) Hypothyroidism (4) Diabetes (5) Gastritis (6) Cirrhosis of liver (7) Abdominal pain (8) H/O ETOH abuse (9) GERD (gastroesophageal reflux disease) Plan CA19-9 >> 78.93 CEA >> 2.1 AFP >> WNL CA 125-5 >> 80.4 H Hep panel B positive GGTP >> WNL s/p paracentesis >> 3.6 L yield >> no ascites albumin collected fu biopsy results >> mild chronic antral gastritis s/p EGD >> gastritis with no obvious esophageal varices consider colonoscopy pending OB stool monitor H&H, transfuse PRN elevated ammonia >> lactulose + Xifaxan ppi fu labs Discussed with Dr. Reyes. Thank you for referring this patient, we will follow. Autumn Lutz N.P. May 03, 2016 15:01
--- NOTE | 2016-05-03 16:01 | Consultation ---
History of Present Illness General Date patient seen: May 03, 2016 Chief Complaint: Chest Pain Referring physician: ROSS HODGES Reason for Consultation: chest pain Present Illness HPI 61-year-old female with hx of ESRF, recent hospitalization at [facility] presented to [facility] ER complaining of chest pain started approximately one hour prior to admission. Pain is midsternal, pressure-like, 8 out 10, nonradiating. Patient was given aspirin and nitroglycerin by EMS without relief. She was found to have severe anemia and admitted for further evaluation Allergies: Coded Allergies: No Known Allergies (Unverified , 09/20/15) Medication History Scheduled Amlodipine Besylate* (Amlodipine Besylate*), 10 MG ORAL DAILY, (Reported) Aspirin* (Aspirin*), 325 MG ORAL DAILY, (Reported) Calcitriol (Rocaltrol), 0.25 MCG PO DAILY, (Reported) Cephalexin* (Keflex*), 250 MG ORAL BID, (Reported) Cinacalcet Hcl (Sensipar), 90 MG PO DAILY, (Reported) Clonidine Hcl* (Catapres*), 0.1 MG ORAL EVERY 6 HOURS, (Reported) Cyanocobalamin (Vitamin B-12)* (Vitamin B-12*), 1,000 MCG ORAL DAILY, (Reported) Diphenoxylate HCl/Atropine (Lomotil Tablet), 1 EACH PO Q4HR, (Reported) Docusate Sodium* (Docusil*), 100 MG ORAL Q12HR, (Reported) Doxazosin Mesylate* (Cardura*), 2 MG ORAL DAILY, (Reported) Enoxaparin* (Lovenox*), 30 MG SUBQ DAILY, (Reported) Guaifenesin/Dextromethorphan (Guaifenesin-Dm Solution), 10 ML PO Q4HR, (Reported ) Hydralazine Hcl* (Hydralazine Hcl*), 50 MG ORAL EVERY 8 HOURS, (Reported) Hydromorphone Hcl (Dilaudid), 1 MG PO NEEDED, (Reported) Lactulose (Lactulose*), 30 ML ORAL Q8HR, (Reported) Lisinopril (Lisinopril*), 5 MG ORAL DAILY, (Reported) Losartan Potassium (Cozaar), 100 MG ORAL DAILY, (Reported) Mag Hydrox/Al Hydrox/Simeth (Maalox Advanced Suspension), 30 ML PO EVERY 12 HOURS, (Reported) Metoclopramide Hcl* (Reglan*), 5 MG ORAL EVERY 6 HOURS, (Reported) Omeprazole (Omeprazole), 20 MG ORAL DAILY, (Reported) Sevelamer Hcl (Renagel), 800 MG ORAL THREE TIMES A DAY, (Reported) Thiamine Hcl* (Vitamin B-1*), 100 MG ORAL DAILY, (Reported) Trazodone Hcl* (Desyrel*), 100 MG ORAL BEDTIME, (Reported) Scheduled PRN Acetaminophen (Acetaminophen), 650 MG ORAL Q6H PRN for Prn Headache/Temp > 101, (Reported) Clonidine Hcl* (Catapres*), 0.1 MG ORAL EVERY 6 HOURS PRN for AD, (Reported) Dextrose 50 % in Water (Dextrose 50%-Water Syringe), 50 ML IV for Hypoglycemia, (Reported) Diphenhydramine Hcl* (Benadryl*), 25 MG ORAL Q6H PRN for Itching, (Reported) Hydrocodone Bit/Acetaminophen 5-325* ([place] 5-325*), 1 TAB ORAL Q4H PRN for For Pain, (Reported) Lorazepam* (Ativan*), 0.5 MG ORAL Q4HR PRN for AD, (Reported) Melatonin (Melatonin 3 Mg Tablet), 1 TAB ORAL BEDTIME PRN for Insomnia, ( Reported) Ondansetron Odt* (Zofran Odt*), 4 MG ORAL Q6H PRN for Nausea & Vomiting, ( Reported) Tramadol Hcl* (Ultram*), 50 MG ORAL Q6H PRN for For Pain, (Reported) Miscellaneous Medications Calcitriol (Rocaltrol), 0.25 MCG PO, (Reported) Calcium Carbonate/Vitamin D3 (Calcium 600 + Vit D 400 Tablet), 1 EACH PO, ( Reported) Insulin Aspart* (Novolog*), 0 SUBQ, (Reported) Patient History Healthcare decision maker pt alert and oriented Resuscitation status Full Code Advanced Directive on File Past Medical/Surgical History Past Medical/Surgical History: (1) H/O ETOH abuse (2) Cirrhosis of liver (3) Diabetes Review of Systems Constitutional: Reports: malaise, weakness Cardiovascular: Reports: chest pain Physical Exam General Appearance: WD/WN, no apparent distress Lines, tubes and drains: peripheral, central line HEENT: normocephalic, atraumatic Neck: non-tender, normal alignment Respiratory/Chest: chest wall non-tender, lungs clear Cardiovascular/Chest: normal peripheral pulses, normal rate Abdomen: normal bowel sounds Last 24 Hour Vital Signs Date Time Temp Pulse Resp B/P Pulse Ox O2 Delivery O2 Flow Rate FiO2 05/03/16 14:25 98.4 98 120/68 05/03/16 14:10 98.1 101 18 113/66 05/03/16 11:36 97.1 98 18 125/71 100 Room Air 05/03/16 11:05 97.1 05/03/16 09:28 124/70 05/03/16 09:28 100 124/70 05/03/16 08:06 97.7 100 18 124/70 100 Room Air 05/03/16 07:53 97 05/03/16 06:27 98.9 93 14 118/72 97 Room Air 05/03/16 06:15 93 18 114/68 97 Room Air 05/03/16 04:59 97 14 118/72 97 Room Air 05/03/16 03:56 98.9 05/03/16 03:35 104 18 118/69 94 Room Air 05/03/16 02:35 90 18 Room Air 05/03/16 02:27 99.0 90 18 128/91 98 Room Air Intake and Output 05/02/16 05/03/16 19:00 07:00 Intake Total 500 ml Output Total 0 ml Balance 500 ml IV Total 500 ml Output Urine Total 0 ml Laboratory Tests Test 05/03/16 03:20 White Blood Count 8.5 K/UL (4.8-10.8) Red Blood Count 2.14 M/UL (4.20-5.40) L Hemoglobin 6.6 G/DL (12.0-16.0) *L Hematocrit 21.4 % (37.0-47.0) L Mean Corpuscular Volume 100 FL (80-99) H Mean Corpuscular Hemoglobin 30.9 PG (27.0-31.0) Mean Corpuscular Hemoglobin Concent 31.0 G/DL (32.0-36.0) L Red Cell Distribution Width 17.9 % (11.6-14.8) H Platelet Count 341 K/UL (150-450) Mean Platelet Volume 5.3 FL (6.5-10.1) L Neutrophils (%) (Auto) % (45.0-75.0) Lymphocytes (%) (Auto) % (20.0-45.0) Monocytes (%) (Auto) % (1.0-10.0) Eosinophils (%) (Auto) % (0.0-3.0) Basophils (%) (Auto) % (0.0-2.0) Prothrombin Time 14.7 SEC (9.30-11.50) H Prothromb Time International Ratio 1.4 (0.9-1.1) H Activated Partial Thromboplast Time 37 SEC (23-33) H Sodium Level 136 mEQ/L (135-145) Potassium Level 5.1 mEQ/L (3.4-4.9) H Chloride Level 92 mEQ/L (98-107) L Carbon Dioxide Level 30 mEQ/L (20-30) Anion Gap 14 (5-15) Blood Urea Nitrogen 21 mg/dL (7-23) Creatinine 3.5 mg/dL (0.5-0.9) H Estimat Glomerular Filtration Rate 16.2 mL/min (>60) Glucose Level 74 mg/dL (74-106) Calcium Level 7.3 mg/dL (8.6-10.2) L Total Bilirubin 0.5 mg/dL (0.0-1.2) Aspartate Amino Transf (AST/SGOT) 21 U/L (5-40) Alanine Aminotransferase (ALT/SGPT) 6 U/L (3-33) Alkaline Phosphatase 90 U/L (35-104) Total Creatine Kinase 31 U/L (26-140) Creatine Kinase MB < 1.5 ng/mL (< 3.8) Creatine Kinase MB Relative Index 4.8 Troponin I < 0.30 ng/mL (<=0.30) Pro-B-Type Natriuretic Peptide 75473 pg/mL (0-125) H Total Protein 7.5 g/dL (6.6-8.7) Albumin 2.6 g/dL (3.5-5.2) L Globulin 4.9 g/dL Albumin/Globulin Ratio 0.5 (1.0-2.7) L Height (Feet): 5 Height (Inches): 6.00 Weight (Pounds): 127 Medications Current Medications Medications (Trade) Dose Ordered Sig/Ranjan Route PRN Reason Start Time Stop Time Status Last Admin Dose Admin Acetaminophen (Tylenol) 650 mg Q4H PRN ORAL fever 05/03/16 07:15 06/02/16 07:14 Albuterol/ Ipratropium (DuoNeb 0.5-3(2.5)mg/3ml) 3 ml Q6H PRN HHN dyspnea 05/03/16 07:15 05/08/16 07:14 Amlodipine Besylate (Norvasc) 10 mg DAILY ORAL 05/03/16 09:00 06/02/16 08:59 05/03/16 09:28 Aspirin (ASA) 325 mg DAILY ORAL 05/03/16 09:00 06/02/16 08:59 Calcitriol (Rocatrol) 0.25 mcg DAILY ORAL 05/03/16 09:00 06/02/16 08:59 05/03/16 09:28 Clonidine HCl (Catapres) 0.1 mg Q4H PRN ORAL For High Blood Pressure 05/03/16 07:15 06/02/16 07:14 Dextrose (Dextrose 50%) STAT PRN IV Hypoglycemia 05/03/16 07:15 06/02/16 07:14 Furosemide (Lasix) 100 mg EVERY 8 HOURS PRN IV dyspnea 05/03/16 07:15 06/02/16 07:14 Heparin Sodium (Porcine) (Heparin 5000 units/ml) 5,000 units EVERY 12 HOURS SUBQ 05/03/16 09:00 06/02/16 08:59 Insulin Aspart (NovoLOG) BEFORE MEALS AND HS SUBQ 05/03/16 11:30 06/02/16 11:29 Lisinopril (Zestril) 5 mg DAILY ORAL 05/03/16 09:00 06/02/16 08:59 05/03/16 09:28 Losartan Potassium (Cozaar) 100 mg DAILY ORAL 05/03/16 09:00 06/02/16 08:59 UNV Metoclopramide HCl (Reglan) 5 mg TIAC ORAL 05/03/16 16:30 06/02/16 11:29 Morphine Sulfate (Morphine Sulfate) 1 mg Q4H PRN IVP For Pain 05/03/16 07:15 05/10/16 07:14 05/03/16 10:35 Ondansetron HCl (Zofran) 4 mg Q6H PRN IVP Nausea & Vomiting 05/03/16 07:15 06/02/16 07:14 Polyethylene Glycol (Miralax) 17 gm HSPRN PRN ORAL Constipation 05/03/16 07:15 06/02/16 07:14 Trazodone HCl (Desyrel) 100 mg BEDTIME ORAL 05/03/16 21:00 06/02/16 20:59 Zolpidem Tartrate (Ambien) 5 mg HSPRN PRN ORAL Insomnia 05/03/16 07:15 06/02/16 07:14 Assessment/Plan Problem List: (1) ACS (acute coronary syndrome) ICD Codes: I24.9 - Acute ischemic heart disease, unspecified SNOMED: 321929478 (2) Anemia ICD Codes: D64.9 - Anemia, unspecified SNOMED: 598128857 Qualifiers: Qualified Codes: D64.9 - Anemia, unspecified (3) HTN (hypertension) ICD Codes: I10 - Essential (primary) hypertension SNOMED: 25336560 (4) H/O ETOH abuse ICD Codes: Z87.898 - Personal history of other specified conditions SNOMED: 019144328 (5) Diabetes ICD Codes: E11.9 - Type 2 diabetes mellitus without complications SNOMED: 44506701 (6) ESRD (end stage renal disease) ICD Codes: N18.6 - End stage renal disease SNOMED: 40974398 (7) Cirrhosis of liver ICD Codes: K74.60 - Unspecified cirrhosis of liver SNOMED: 96709850 Assessment/Plan prbc prn Gi evaluation cardio evaluation sliding scale insulin coverage. ANN MARIE OSULLIVAN May 03, 2016 16:01
--- NOTE | 2016-05-03 18:58 | History and Physical Report ---
DATE OF ADMISSION: 05/03/2016 CHIEF COMPLAINT: The patient is a 61-year-old female, who presents with chief complaint of chest pain. HISTORY OF PRESENT ILLNESS: The patient was admitted to [facility] [place] from 04/17/2016 to 04/26/2016. The patient underwent an endoscopy at that time, which revealed gastritis. Please refer to History and Physical, and Discharge Summary dictated during that stay. The patient is a resident of [facility] since her discharge on 04/26/2016. According to staff at [facility], the patient began to experience chest pain on 05/02/2016. Chest pain lasted for approximately one hour. EMS was called. The patient was transported to [place] emergency room. The patient was admitted for chest pain, rule out acute coronary syndrome. REVIEW OF SYSTEMS: Constitutional: The patient denies weight loss or weight gain. The patient denies fevers or chills. HEENT: The patient denies ear or throat pain. Cardiovascular: The patient complains of chest pain as above. The patient denies palpitations. Abdomen: The patient denies nausea, vomiting, diarrhea, or constipation. Chest: The patient denies wheezing or shortness of breath. Genitourinary: The patient denies dysuria or increased frequency of urination. Neuromuscular: The patient denies seizures or generalized weakness. PAST MEDICAL HISTORY: Significant for, 1. End-stage renal disease, on hemodialysis every Sunday, Sunday, and Sunday. The patient's last dialysis was 05/01/2016. 2. History of liver cirrhosis. 3. History of alcohol dependence. 4. Anemia, status post endoscopy on 04/21/2016. 5. Ascites, status post paracentesis on 04/18/2016. CURRENT MEDICATIONS: 1. Calcium carbonate/vitamin D one tablet p.o. daily. 2. Cardura 2 mg one tablet p.o. once daily. 3. Clonidine 0.1 mg one tablet p.o. q.6 h. p.r.n. 4. Cozaar 100 mg one tablet p.o. daily. 5. Vitamin B 1000 mcg p.o. daily. 6. Hydralazine 50 mg one tablet p.o. q.8 h. p.r.n. 7. Lisinopril 5 mg one tablet p.o. daily. 8. Lovenox 30 mg subcutaneously daily. 9. Melatonin 3 mg one tablet p.o. at bedtime. 10. NovoLog sliding scale. 11. Omeprazole 20 mg one tablet p.o. daily. 12. Reglan 5 mg one tablet p.o. q.6 h. p.r.n. 13. Sensipar 90 mg one tablet p.o. daily. 14. Thiamin 100 mg one tablet p.o. daily. 15. Tramadol 50 mg one tablet p.o. q.6 h. p.r.n. 16. Trazodone 100 mg one tablet p.o. at bedtime p.r.n. ALLERGIES: No known drug allergies. SOCIAL HISTORY: The patient lives at [facility]. The patient denies tobacco use. The patient denies current alcohol use. PHYSICAL EXAMINATION: VITAL SIGNS: Temperature 98.9, respirations 14, pulse 93, and blood pressure 118/72. GENERAL APPEARANCE: A well-developed, well-nourished, female, who is currently sleeping. HEENT: Eyes, pupils are equal and responsive to light and accommodation. Extraocular movements are intact. NECK: Supple. No lymphadenopathy. CHEST: Decreased breath sounds in bilateral bases, otherwise, clear to auscultation bilaterally without wheezes or rales. CARDIOVASCULAR: Regular rhythm and rate. S1 and S2 are normal without murmurs, rubs, or gallops. ABDOMEN: Soft, distended with positive bowel sounds. No evidence of hepatosplenomegaly. Currently, no rebound or guarding. EXTREMITIES: Negative for clubbing, cyanosis, or edema. RECTAL/GENITALIA: Refused. NEUROLOGIC: Cranial nerves II through XII are grossly intact without focal deficits. Motor strength is 5/5 bilaterally. Deep tendon reflexes are 2+ plantar. LABORATORY STUDIES: WBC 8.5, hemoglobin 6.6, hematocrit 21.4, and platelets 341,000. Sodium 136, potassium 5.1, chloride 96, CO2 30, BUN 29, creatinine 3.5, and glucose 74. Troponin less than 0.3. BNP elevated at 31,777. ASSESSMENT: This is a 61-year-old female with, 1. Chest pain. 2. Anemia. 3. End-stage renal disease. 4. Congestive heart failure. 5. Gastritis. 6. Hypertension. 7. Ascites. 8. Cirrhosis of the liver. TREATMENT: 1. Chest pain. A Cardiology consultation will be obtained with Dr. Kevyn Dillard. Serial troponin levels will be run. The patient may require a Cardiolite stress test during this hospitalization. 2. Anemia. This may be secondary to renal disease versus acute gastrointestinal bleed. A Gastroenterology consultation will be obtained with Dr. Ayush Reyes. A Nephrology consultation will be obtained with Dr. Sargent. 3. End-stage renal disease. The patient currently undergoes hemodialysis every Sunday, Sunday, and Sunday. A Nephrology consultation will be obtained with Dr. Sargent. The patient's last dialysis was 05/01/2016. 4. Congestive heart failure. As above, a Cardiology consultation will obtained with Dr. Kevyn Dillard should this may be secondary to volume overload secondary to dialysis. 5. Gastritis. The patient has been started on Protonix 40 mg one tablet p.o. daily. 6. Hypertension. Continue Cozaar as above. 7. Ascites. The patient is status post paracentesis on 04/18/2016. 8. Alcoholic cirrhosis of the liver. Adair Huerta M.D. DR: MARIAN JOB#: [id number] CC:
[2016-05-03] MEDS: Zolpidem 5mg tab ORAL PRN (21:29)
[2016-05-03] MEDS: TraZODone 100mg tab ORAL SCH (21:29)
[2016-05-04 00:16] VITALS: BP 134/82
[2016-05-04 04:15] VITALS: BP 136/82
[2016-05-04] MEDS: NovoLOG Insulin Flexpen SUBQ SCH ×4 (06:30→21:00)
[2016-05-04 07:56] VITALS: BP 141/88
[2016-05-04 08:50] LABS: BASOPHILS % (AUTO) 1.3 % (0.0-2.0); EOSINOPHILS % (AUTO) 7.1 % (0.0-3.0); LYMPHOCYTES % (AUTO) 17.1 % (20.0-45.0); MEAN CORPUSCULAR HEMOGLOBIN 30.8 PG (27.0-31.0); MEAN CORPUSCULAR HGB CONC 31.6 G/DL (32.0-36.0); MEAN CORPUSCULAR VOLUME 97 FL (80-99); MEAN PLATELET VOLUME 5.1 FL (6.5-10.1); MONOCYTES % (AUTO) 10.5 % (1.0-10.0); PLATELET COUNT 323 K/UL (150-450); RED BLOOD COUNT 2.73 M/UL (4.20-5.40); RED CELL DISTRIBUTION WIDTH 19.1 % (11.6-14.8); WHITE BLOOD COUNT 6.9 K/UL (4.8-10.8)
[2016-05-04] MEDS: Heparin 5000 units/ml inj SUBQ SCH ×2 (09:00→21:00)
[2016-05-04 09:04] LABS: ALANINE AMINOTRANSFERASE < 5 U/L (3-33); ALBUMIN/GLOBULIN RATIO 0.5 (1.0-2.7); ANION GAP 15 (5-15); ASPARTATE AMINO TRANSFERASE 16 U/L (5-40); CALCIUM 7.4 mg/dL (8.6-10.2); CARBON DIOXIDE 30 mEQ/L (20-30); CHLORIDE 93 mEQ/L (98-107); CHOLESTEROL 137 mg/dL (< 200); CREATININE 5.1 mg/dL (0.5-0.9); GLOMERULAR FILTRATION RATE 10.4 mL/min (>60); HEMOLYSIS 0; LDL CHOLESTEROL (CALC.) 83 mg/dL (60-99); POTASSIUM 4.8 mEQ/L (3.4-4.9); SODIUM 138 mEQ/L (135-145); TOTAL PROTEIN 7.9 g/dL (6.6-8.7); TROPONIN I < 0.30 ng/mL (<=0.30)
[2016-05-04 09:05] LABS: URIC ACID 4.5 mg/dL (3.0-7.5)
[2016-05-04] MEDS: Calcitriol 0.25mcg Cap ORAL SCH (09:17)
[2016-05-04 09:24] LABS: HEMOGLOBIN A1C 4.4 % (< 6.0)
[2016-05-04] MEDS: Morphine Sulfate 2mg/ml Inj IVP PRN ×3 (10:41→21:30)
[2016-05-04 11:32] VITALS: BP 137/82
[2016-05-04] MEDS: Lisinopril 2.5mg tab ORAL SCH ×2 (11:51→21:29)
--- NOTE | 2016-05-04 13:23 | General Progress Note ---
Assessment/Plan Status: stable Status Narrative transfused last night Assessment/Plan status: ESRD- HyperKalemia- resoved Ascitis- worsening severe Anemia- transfused DM HTN At Fib Plan: HD in am- optimize cardiac and pulmonary status- BP meds adjustment- 2 D Echo previous admission: Left ventricular ejection fraction estimated to be 70 %. Monitor lytes and renal parameters- Per consultants Transfused 05/03 Paracynthesis, Ascitis aspiration Subjective ROS Limited/Unobtainable: No Constitutional: Reports: malaise, weakness Allergies: Coded Allergies: No Known Allergies (Unverified , 09/20/15) Objective Last 24 Hour Vital Signs Date Time Temp Pulse Resp B/P Pulse Ox O2 Delivery O2 Flow Rate FiO2 05/04/16 11:51 137/82 05/04/16 11:32 98.4 103 18 137/82 98 Nasal Cannula 2.0 05/04/16 11:11 97.1 05/04/16 10:41 108 141/88 05/04/16 08:00 108 05/04/16 07:56 97.1 110 18 141/88 94 Room Air 05/04/16 07:42 106 20 Room Air 05/04/16 04:15 98.5 100 20 136/82 99 Nasal Cannula 3.0 05/04/16 04:00 97 05/04/16 00:16 98.8 99 19 134/82 100 Nasal Cannula 3.0 05/04/16 00:00 96 05/03/16 20:00 99 05/03/16 20:00 99.1 100 21 137/86 99 Room Air 05/03/16 19:32 99 18 Room Air 05/03/16 16:00 100 05/03/16 16:00 98.4 106 21 113/71 96 Room Air 05/03/16 14:25 98.4 98 120/68 05/03/16 14:10 98.1 101 18 113/66 Intake and Output 05/03/16 05/04/16 19:00 07:00 Intake Total 220 ml 300 ml Balance 220 ml 300 ml Intake Oral 220 ml 300 ml # Voids 1 Laboratory Tests 05/04/16 07:42: White Blood Count 6.9, Red Blood Count 2.73L, Hemoglobin 8.4L, Hematocrit 26.6L , Mean Corpuscular Volume 97, Mean Corpuscular Hemoglobin 30.8, Mean Corpuscular Hemoglobin Concent 31.6L, Red Cell Distribution Width 19.1H, Platelet Count 323, Mean Platelet Volume 5.1L, Neutrophils (%) (Auto) 64.0, Lymphocytes (%) (Auto) 17.1L, Monocytes (%) (Auto) 10.5H, Eosinophils (%) (Auto ) 7.1H, Basophils (%) (Auto) 1.3, Sodium Level 138, Potassium Level 4.8, Chloride Level 93L, Carbon Dioxide Level 30, Anion Gap 15, Blood Urea Nitrogen 26H, Creatinine 5.1H, Estimat Glomerular Filtration Rate 10.4, Glucose Level 128H, Hemoglobin A1c 4.4, Uric Acid 4.5, Calcium Level 7.4L, Phosphorus Level 4.0, Magnesium Level 2.0, Total Bilirubin 0.7, Gamma Glutamyl Transpeptidase 37H , Aspartate Amino Transf (AST/SGOT) 16, Alanine Aminotransferase (ALT/SGPT) < 5 , Alkaline Phosphatase 97, Ammonia 36, Total Creatine Kinase 24L, Troponin I < 0.30, Pro-B-Type Natriuretic Peptide 34703Y, Total Protein 7.9, Albumin 2.9L, Globulin 5.0, Albumin/Globulin Ratio 0.5L, Triglycerides Level 102, Cholesterol Level 137, LDL Cholesterol 83, HDL Cholesterol 34, Cholesterol/HDL Ratio 4.0, Thyroid Stimulating Hormone (TSH) 11.820H Height (Feet): 5 Height (Inches): 6.00 Weight (Pounds): 127 General Appearance: no apparent distress Cardiovascular: tachycardia Respiratory/Chest: decreased breath sounds Abdomen: distended - -ascitis PEPE MONTERROSO May 04, 2016 13:23
--- NOTE | 2016-05-04 13:58 | Cardiology Report ---
APPROVED REPORT EKG Measurement Heart [id number] [place] [id number] Sinus tachycardia Cannot rule out Anterior infarct, age undetermined Abnormal ECG
--- NOTE | 2016-05-04 15:04 | Pulmonology Progress Note ---
Assessment/Plan Problems: (1) ACS (acute coronary syndrome) (2) Anemia (3) HTN (hypertension) (4) H/O ETOH abuse (5) Diabetes (6) ESRD (end stage renal disease) (7) Cirrhosis of liver Assessment/Plan paracentesis cardiology f/u respiratory treatment titrate fio2 to sat of 92% monitor bp Subjective ROS Limited/Unobtainable: No Interval Events: c/o abdominal distension Allergies: Coded Allergies: No Known Allergies (Unverified , 09/20/15) Objective Last 24 Hour Vital Signs Date Time Temp Pulse Resp B/P Pulse Ox O2 Delivery O2 Flow Rate FiO2 05/04/16 11:51 137/82 05/04/16 11:32 98.4 103 18 137/82 98 Nasal Cannula 2.0 05/04/16 11:11 97.1 05/04/16 10:41 108 141/88 05/04/16 08:00 108 05/04/16 07:56 97.1 110 18 141/88 94 Room Air 05/04/16 07:42 106 20 Room Air 05/04/16 04:15 98.5 100 20 136/82 99 Nasal Cannula 3.0 05/04/16 04:00 97 05/04/16 00:16 98.8 99 19 134/82 100 Nasal Cannula 3.0 05/04/16 00:00 96 05/03/16 20:00 99 05/03/16 20:00 99.1 100 21 137/86 99 Room Air 05/03/16 19:32 99 18 Room Air 05/03/16 16:00 100 05/03/16 16:00 98.4 106 21 113/71 96 Room Air Intake and Output 05/03/16 05/04/16 19:00 07:00 Intake Total 220 ml 300 ml Balance 220 ml 300 ml Intake Oral 220 ml 300 ml # Voids 1 General Appearance: WD/WN HEENT: normocephalic Respiratory/Chest: chest wall non-tender, lungs clear Breasts: no masses Cardiovascular: normal peripheral pulses Abdomen: normal bowel sounds, soft, non tender Skin: no rash Neurologic/Psychiatric: hoister II-XII grossly normal, no motor/sensory deficits Lymphatic: no neck adenopathy, no groin adenopathy Laboratory Tests 05/04/16 07:42: White Blood Count 6.9, Red Blood Count 2.73L, Hemoglobin 8.4L, Hematocrit 26.6L , Mean Corpuscular Volume 97, Mean Corpuscular Hemoglobin 30.8, Mean Corpuscular Hemoglobin Concent 31.6L, Red Cell Distribution Width 19.1H, Platelet Count 323, Mean Platelet Volume 5.1L, Neutrophils (%) (Auto) 64.0, Lymphocytes (%) (Auto) 17.1L, Monocytes (%) (Auto) 10.5H, Eosinophils (%) (Auto ) 7.1H, Basophils (%) (Auto) 1.3, Sodium Level 138, Potassium Level 4.8, Chloride Level 93L, Carbon Dioxide Level 30, Anion Gap 15, Blood Urea Nitrogen 26H, Creatinine 5.1H, Estimat Glomerular Filtration Rate 10.4, Glucose Level 128H, Hemoglobin A1c 4.4, Uric Acid 4.5, Calcium Level 7.4L, Phosphorus Level 4.0, Magnesium Level 2.0, Total Bilirubin 0.7, Gamma Glutamyl Transpeptidase 37H , Aspartate Amino Transf (AST/SGOT) 16, Alanine Aminotransferase (ALT/SGPT) < 5 , Alkaline Phosphatase 97, Ammonia 36, Total Creatine Kinase 24L, Troponin I < 0.30, Pro-B-Type Natriuretic Peptide 11540B, Total Protein 7.9, Albumin 2.9L, Globulin 5.0, Albumin/Globulin Ratio 0.5L, Triglycerides Level 102, Cholesterol Level 137, LDL Cholesterol 83, HDL Cholesterol 34, Cholesterol/HDL Ratio 4.0, Thyroid Stimulating Hormone (TSH) 11.820H Current Medications Medications (Trade) Dose Ordered Sig/Ranjan Route PRN Reason Start Time Stop Time Status Last Admin Dose Admin Acetaminophen (Tylenol) 650 mg Q4H PRN ORAL fever 05/03/16 07:15 06/02/16 07:14 Albuterol/ Ipratropium (DuoNeb 0.5-3(2.5)mg/3ml) 3 ml Q6H PRN HHN dyspnea 05/03/16 07:15 05/08/16 07:14 Amlodipine Besylate (Norvasc) 10 mg DAILY ORAL 05/03/16 09:00 06/02/16 08:59 05/04/16 10:41 Aspirin (ASA) 81 mg DAILY ORAL 05/05/16 09:00 06/04/16 08:59 Calcitriol (Rocatrol) 0.25 mcg DAILY ORAL 05/03/16 09:00 06/02/16 08:59 05/04/16 09:17 Clonidine HCl (Catapres) 0.1 mg Q4H PRN ORAL For High Blood Pressure 05/03/16 07:15 06/02/16 07:14 Dextrose (Dextrose 50%) STAT PRN IV Hypoglycemia 05/03/16 07:15 06/02/16 07:14 Ergocalciferol (Drisdol) 50,000 intlu QWEEK ORAL 05/04/16 16:00 06/03/16 15:59 Furosemide (Lasix) 100 mg EVERY 8 HOURS PRN IV dyspnea 05/03/16 07:15 06/02/16 07:14 Heparin Sodium (Porcine) (Heparin 5000 units/ml) 5,000 units EVERY 12 HOURS SUBQ 05/03/16 09:00 06/02/16 08:59 05/03/16 21:35 Insulin Aspart (NovoLOG) BEFORE MEALS AND HS SUBQ 05/03/16 11:30 06/02/16 11:29 05/04/16 11:55 Lisinopril (Zestril) 5 mg Q12HR ORAL 05/04/16 12:00 06/03/16 11:59 05/04/16 11:51 Metoclopramide HCl (Reglan) 5 mg TIAC ORAL 05/03/16 16:30 06/02/16 11:29 05/04/16 10:41 Morphine Sulfate (Morphine Sulfate) 1 mg Q4H PRN IVP For Pain 05/03/16 07:15 05/10/16 07:14 05/04/16 10:41 Ondansetron HCl (Zofran) 4 mg Q6H PRN IVP Nausea & Vomiting 05/03/16 07:15 06/02/16 07:14 Pantoprazole (Protonix) 40 mg EVERY 12 HOURS ORAL 05/04/16 21:00 06/03/16 20:59 Polyethylene Glycol (Miralax) 17 gm HSPRN PRN ORAL Constipation 05/03/16 07:15 06/02/16 07:14 Trazodone HCl (Desyrel) 100 mg BEDTIME ORAL 05/03/16 21:00 06/02/16 20:59 05/03/16 21:29 Zolpidem Tartrate (Ambien) 5 mg HSPRN PRN ORAL Insomnia 05/03/16 07:15 06/02/16 07:14 05/03/16 21:29 ANN MARIE OSULLIVAN May 04, 2016 15:04
--- NOTE | 2016-05-04 15:39 | General Progress Note ---
Assessment/Plan Problem List: (1) HTN (hypertension) ICD Codes: I10 - Essential (primary) hypertension SNOMED: 94659998 (2) ESRD (end stage renal disease) ICD Codes: N18.6 - End stage renal disease SNOMED: 17293388 (3) Cirrhosis of liver ICD Codes: K74.60 - Unspecified cirrhosis of liver SNOMED: 20276134 (4) Gastritis ICD Codes: K29.70 - Gastritis, unspecified, without bleeding SNOMED: 4841738 (5) Diabetes ICD Codes: E11.9 - Type 2 diabetes mellitus without complications SNOMED: 92041057 (6) Anemia ICD Codes: D64.9 - Anemia, unspecified SNOMED: 937989314 Qualifiers: Qualified Codes: D64.9 - Anemia, unspecified (7) Hepatomegaly ICD Codes: R16.0 - Hepatomegaly, not elsewhere classified SNOMED: 98072016 Assessment/Plan fu H&H fu stool ob not stable for colonoscopy lactulose xifaxan prn paracenthesis Subjective ROS Limited/Unobtainable: Yes Allergies: Coded Allergies: No Known Allergies (Unverified , 09/20/15) Subjective no event Objective Last 24 Hour Vital Signs Date Time Temp Pulse Resp B/P Pulse Ox O2 Delivery O2 Flow Rate FiO2 05/04/16 11:51 137/82 05/04/16 11:32 98.4 103 18 137/82 98 Nasal Cannula 2.0 05/04/16 11:11 97.1 05/04/16 10:41 108 141/88 05/04/16 08:00 108 05/04/16 07:56 97.1 110 18 141/88 94 Room Air 05/04/16 07:42 106 20 Room Air 05/04/16 04:15 98.5 100 20 136/82 99 Nasal Cannula 3.0 05/04/16 04:00 97 05/04/16 00:16 98.8 99 19 134/82 100 Nasal Cannula 3.0 05/04/16 00:00 96 05/03/16 20:00 99 05/03/16 20:00 99.1 100 21 137/86 99 Room Air 05/03/16 19:32 99 18 Room Air 05/03/16 16:00 100 05/03/16 16:00 98.4 106 21 113/71 96 Room Air Intake and Output 05/03/16 05/04/16 19:00 07:00 Intake Total 220 ml 300 ml Balance 220 ml 300 ml Intake Oral 220 ml 300 ml # Voids 1 Laboratory Tests 05/04/16 07:42: White Blood Count 6.9, Red Blood Count 2.73L, Hemoglobin 8.4L, Hematocrit 26.6L , Mean Corpuscular Volume 97, Mean Corpuscular Hemoglobin 30.8, Mean Corpuscular Hemoglobin Concent 31.6L, Red Cell Distribution Width 19.1H, Platelet Count 323, Mean Platelet Volume 5.1L, Neutrophils (%) (Auto) 64.0, Lymphocytes (%) (Auto) 17.1L, Monocytes (%) (Auto) 10.5H, Eosinophils (%) (Auto ) 7.1H, Basophils (%) (Auto) 1.3, Sodium Level 138, Potassium Level 4.8, Chloride Level 93L, Carbon Dioxide Level 30, Anion Gap 15, Blood Urea Nitrogen 26H, Creatinine 5.1H, Estimat Glomerular Filtration Rate 10.4, Glucose Level 128H, Hemoglobin A1c 4.4, Uric Acid 4.5, Calcium Level 7.4L, Phosphorus Level 4.0, Magnesium Level 2.0, Total Bilirubin 0.7, Gamma Glutamyl Transpeptidase 37H , Aspartate Amino Transf (AST/SGOT) 16, Alanine Aminotransferase (ALT/SGPT) < 5 , Alkaline Phosphatase 97, Ammonia 36, Total Creatine Kinase 24L, Troponin I < 0.30, Pro-B-Type Natriuretic Peptide 56723Z, Total Protein 7.9, Albumin 2.9L, Globulin 5.0, Albumin/Globulin Ratio 0.5L, Triglycerides Level 102, Cholesterol Level 137, LDL Cholesterol 83, HDL Cholesterol 34, Cholesterol/HDL Ratio 4.0, Thyroid Stimulating Hormone (TSH) 11.820H Height (Feet): 5 Height (Inches): 6.00 Weight (Pounds): 127 General Appearance: alert EENT: normal ENT inspection Neck: supple Cardiovascular: normal rate Respiratory/Chest: decreased breath sounds Abdomen: normal bowel sounds, non tender, soft Extremities: non-tender GEOVANNY RAMIREZ May 04, 2016 15:39
[2016-05-04 16:00] VITALS: BP 139/84
[2016-05-04] MEDS ORDERED: Vitamin D 50,000 units cap ORAL SCH (16:00)
--- NOTE | 2016-05-04 19:57 | Cardiology Progress Note ---
Assessment/Plan Assessment/Plan [id number] Objective Last 24 Hour Vital Signs Date Time Temp Pulse Resp B/P Pulse Ox O2 Delivery O2 Flow Rate FiO2 05/04/16 16:00 96.8 102 21 139/84 96 Room Air 05/04/16 11:51 137/82 05/04/16 11:32 98.4 103 18 137/82 98 Nasal Cannula 2.0 05/04/16 11:11 97.1 05/04/16 10:41 108 141/88 05/04/16 08:00 108 05/04/16 07:56 97.1 110 18 141/88 94 Room Air 05/04/16 07:42 106 20 Room Air 05/04/16 04:15 98.5 100 20 136/82 99 Nasal Cannula 3.0 05/04/16 04:00 97 05/04/16 00:16 98.8 99 19 134/82 100 Nasal Cannula 3.0 05/04/16 00:00 96 05/03/16 20:00 99 05/03/16 20:00 99.1 100 21 137/86 99 Room Air Intake and Output 05/03/16 05/04/16 19:00 07:00 Intake Total 220 ml 300 ml Balance 220 ml 300 ml Intake Oral 220 ml 300 ml # Voids 1 Laboratory Tests Test 05/04/16 07:42 White Blood Count 6.9 K/UL (4.8-10.8) Red Blood Count 2.73 M/UL (4.20-5.40) L Hemoglobin 8.4 G/DL (12.0-16.0) L Hematocrit 26.6 % (37.0-47.0) L Mean Corpuscular Volume 97 FL (80-99) Mean Corpuscular Hemoglobin 30.8 PG (27.0-31.0) Mean Corpuscular Hemoglobin Concent 31.6 G/DL (32.0-36.0) L Red Cell Distribution Width 19.1 % (11.6-14.8) H Platelet Count 323 K/UL (150-450) Mean Platelet Volume 5.1 FL (6.5-10.1) L Neutrophils (%) (Auto) 64.0 % (45.0-75.0) Lymphocytes (%) (Auto) 17.1 % (20.0-45.0) L Monocytes (%) (Auto) 10.5 % (1.0-10.0) H Eosinophils (%) (Auto) 7.1 % (0.0-3.0) H Basophils (%) (Auto) 1.3 % (0.0-2.0) Sodium Level 138 mEQ/L (135-145) Potassium Level 4.8 mEQ/L (3.4-4.9) Chloride Level 93 mEQ/L (98-107) L Carbon Dioxide Level 30 mEQ/L (20-30) Anion Gap 15 (5-15) Blood Urea Nitrogen 26 mg/dL (7-23) H Creatinine 5.1 mg/dL (0.5-0.9) H Estimat Glomerular Filtration Rate 10.4 mL/min (>60) Glucose Level 128 mg/dL (74-106) H Hemoglobin A1c 4.4 % (< 6.0) Uric Acid 4.5 mg/dL (3.0-7.5) Calcium Level 7.4 mg/dL (8.6-10.2) L Phosphorus Level 4.0 mg/dL (2.5-4.8) Magnesium Level 2.0 mg/dL (1.7-2.5) Total Bilirubin 0.7 mg/dL (0.0-1.2) Gamma Glutamyl Transpeptidase 37 U/L (5-36) H Aspartate Amino Transf (AST/SGOT) 16 U/L (5-40) Alanine Aminotransferase (ALT/SGPT) < 5 U/L (3-33) Alkaline Phosphatase 97 U/L (35-104) Ammonia 36 umol/L (11-51) Total Creatine Kinase 24 U/L (26-140) L Troponin I < 0.30 ng/mL (<=0.30) Pro-B-Type Natriuretic Peptide 81679 pg/mL (0-125) H Total Protein 7.9 g/dL (6.6-8.7) Albumin 2.9 g/dL (3.5-5.2) L Globulin 5.0 g/dL Albumin/Globulin Ratio 0.5 (1.0-2.7) L Triglycerides Level 102 mg/dL (< 150) Cholesterol Level 137 mg/dL (< 200) LDL Cholesterol 83 mg/dL (60-99) HDL Cholesterol 34 mg/dL (> 60) Cholesterol/HDL Ratio 4.0 (3.3-4.4) Thyroid Stimulating Hormone (TSH) 11.820 uIU/mL (0.300-4.500) BETTIE URBANO May 04, 2016 19:57
[2016-05-04 20:00] VITALS: BP 149/95
[2016-05-04] MEDS: TraZODone 100mg tab ORAL SCH (21:29)
[2016-05-05] VITALS (7 sets, daily range): BP systolic 130–157; BP diastolic 60–92
[2016-05-05] MEDS: Morphine Sulfate 2mg/ml Inj IVP PRN ×3 (02:49→18:57)
[2016-05-05] MEDS: NovoLOG Insulin Flexpen SUBQ SCH ×4 (06:30→21:00)
[2016-05-05 08:11] LABS: EOSINOPHILS % (AUTO) 7.1 % (0.0-3.0); LYMPHOCYTES % (AUTO) 16.9 % (20.0-45.0); MEAN CORPUSCULAR HEMOGLOBIN 31.4 PG (27.0-31.0); MEAN CORPUSCULAR HGB CONC 31.8 G/DL (32.0-36.0); MEAN CORPUSCULAR VOLUME 99 FL (80-99); MEAN PLATELET VOLUME 4.9 FL (6.5-10.1); MONOCYTES % (AUTO) 10.6 % (1.0-10.0); NEUTROPHILS % (AUTO) 64.4 % (45.0-75.0); PLATELET COUNT 276 K/UL (150-450); RED BLOOD COUNT 2.61 M/UL (4.20-5.40); RED CELL DISTRIBUTION WIDTH 17.9 % (11.6-14.8); WHITE BLOOD COUNT 8.2 K/UL (4.8-10.8)
[2016-05-05 08:43] LABS: ALBUMIN/GLOBULIN RATIO 0.5 (1.0-2.7); CALCIUM 7.7 mg/dL (8.6-10.2); CREATININE 5.9 mg/dL (0.5-0.9); CRP QUANT 7.3 mg/dL (< 0.5); GLOMERULAR FILTRATION RATE 8.8 mL/min (>60); PHOSPHORUS 5.1 mg/dL (2.5-4.8); POTASSIUM 5.1 mEQ/L (3.4-4.9); TOTAL PROTEIN 7.3 g/dL (6.6-8.7)
[2016-05-05] MEDS: Aspirin Baby 81mg ORAL SCH (08:43)
[2016-05-05] MEDS: Calcitriol 0.25mcg Cap ORAL SCH (08:43)
[2016-05-05] MEDS: Lisinopril 2.5mg tab ORAL SCH ×2 (08:44→22:18)
[2016-05-05] MEDS: Heparin 5000 units/ml inj SUBQ SCH ×2 (08:44→22:21)
[2016-05-05] MEDS ORDERED: Tubing IV Secondary IV ONE (09:53)
[2016-05-05] MEDS ORDERED: Tubing Blood Filter IV ONE (09:53)
[2016-05-05] MEDS ORDERED: NS 275ml ONE (09:53)
--- NOTE | 2016-05-05 10:59 | General Progress Note ---
Assessment/Plan Problem List: (1) HTN (hypertension) ICD Codes: I10 - Essential (primary) hypertension SNOMED: 47242863 (2) ESRD (end stage renal disease) ICD Codes: N18.6 - End stage renal disease SNOMED: 32931446 (3) Cirrhosis of liver ICD Codes: K74.60 - Unspecified cirrhosis of liver SNOMED: 38184672 (4) Gastritis ICD Codes: K29.70 - Gastritis, unspecified, without bleeding SNOMED: 0378815 (5) Diabetes ICD Codes: E11.9 - Type 2 diabetes mellitus without complications SNOMED: 38924835 (6) Anemia ICD Codes: D64.9 - Anemia, unspecified SNOMED: 218867406 Qualifiers: Qualified Codes: D64.9 - Anemia, unspecified (7) Hepatomegaly ICD Codes: R16.0 - Hepatomegaly, not elsewhere classified SNOMED: 73259937 Assessment/Plan fu H&H>>> stable fu stool ob not stable for colonoscopy lactulose xifaxan prn paracenthesis fu cardiology recs Subjective ROS Limited/Unobtainable: Yes Allergies: Coded Allergies: No Known Allergies (Unverified , 09/20/15) Subjective no event Objective Last 24 Hour Vital Signs Date Time Temp Pulse Resp B/P Pulse Ox O2 Delivery O2 Flow Rate FiO2 05/05/16 09:23 97.9 05/05/16 08:16 97.9 98 18 132/78 96 Room Air 05/05/16 08:09 101 05/05/16 07:08 97 20 Room Air 05/05/16 04:00 108 05/05/16 04:00 98.8 110 18 130/60 94 Room Air 05/05/16 00:00 106 05/05/16 00:00 98.6 107 18 144/86 92 Room Air 05/04/16 21:29 149/95 05/04/16 20:00 104 05/04/16 20:00 99.1 104 20 149/95 99 Room Air 05/04/16 19:30 100 20 Room Air 05/04/16 16:00 96.8 102 21 139/84 96 Room Air 05/04/16 16:00 106 05/04/16 11:51 137/82 05/04/16 11:32 98.4 103 18 137/82 98 Nasal Cannula 2.0 Intake and Output 05/04/16 05/05/16 19:00 07:00 Intake Total 340 ml 450 ml Balance 340 ml 450 ml Intake Oral 340 ml 450 ml # Voids 3 Laboratory Tests 05/05/16 06:58: White Blood Count 8.2, Red Blood Count 2.61L, Hemoglobin 8.2L, Hematocrit 25.8L , Mean Corpuscular Volume 99, Mean Corpuscular Hemoglobin 31.4H, Mean Corpuscular Hemoglobin Concent 31.8L, Red Cell Distribution Width 17.9H, Platelet Count 276, Mean Platelet Volume 4.9L, Neutrophils (%) (Auto) 64.4, Lymphocytes (%) (Auto) 16.9L, Monocytes (%) (Auto) 10.6H, Eosinophils (%) (Auto ) 7.1H, Basophils (%) (Auto) 1.0, Sodium Level 136, Potassium Level 5.1H, Chloride Level 92L, Carbon Dioxide Level 30, Anion Gap 14, Blood Urea Nitrogen 32H, Creatinine 5.9H, Estimat Glomerular Filtration Rate 8.8, Glucose Level 83, Uric Acid 5.0, Calcium Level 7.7L, Phosphorus Level 5.1H, Magnesium Level 2.0, Total Bilirubin 0.6, Gamma Glutamyl Transpeptidase 38H, Aspartate Amino Transf ( AST/SGOT) 14, Alanine Aminotransferase (ALT/SGPT) 5, Alkaline Phosphatase 103, C -Reactive Protein, Quantitative 7.3H, Pro-B-Type Natriuretic Peptide 64086P, Total Protein 7.3, Albumin 2.7L, Globulin 4.6, Albumin/Globulin Ratio 0.5L Height (Feet): 5 Height (Inches): 6.00 Weight (Pounds): 127 General Appearance: alert EENT: normal ENT inspection Neck: supple Cardiovascular: normal rate Respiratory/Chest: decreased breath sounds Abdomen: normal bowel sounds, non tender, soft Extremities: non-tender GEOVANNY RAMIREZ May 05, 2016 10:59
--- NOTE | 2016-05-05 12:17 | General Progress Note ---
Assessment/Plan Status: unchanged Assessment/Plan status: ESRD- HyperKalemia- resolved Ascitis- worsening severe Anemia- transfused DM HTN At Fib Plan: HD today optimize cardiac and pulmonary status- BP meds adjustment- 2 D Echo previous admission: Left ventricular ejection fraction estimated to be 70 %. Monitor lytes and renal parameters- Per consultants Transfused 05/03 Paracynthesis, Ascitis aspiration Subjective ROS Limited/Unobtainable: No Constitutional: Reports: malaise Allergies: Coded Allergies: No Known Allergies (Unverified , 09/20/15) Objective Last 24 Hour Vital Signs Date Time Temp Pulse Resp B/P Pulse Ox O2 Delivery O2 Flow Rate FiO2 05/05/16 11:42 97.9 96 18 143/88 95 Room Air 05/05/16 09:23 97.9 05/05/16 08:16 97.9 98 18 132/78 96 Room Air 05/05/16 08:09 101 05/05/16 07:08 97 20 Room Air 05/05/16 04:00 108 05/05/16 04:00 98.8 110 18 130/60 94 Room Air 05/05/16 00:00 106 05/05/16 00:00 98.6 107 18 144/86 92 Room Air 05/04/16 21:29 149/95 05/04/16 20:00 104 05/04/16 20:00 99.1 104 20 149/95 99 Room Air 05/04/16 19:30 100 20 Room Air 05/04/16 16:00 96.8 102 21 139/84 96 Room Air 05/04/16 16:00 106 Intake and Output 05/04/16 05/05/16 19:00 07:00 Intake Total 340 ml 450 ml Balance 340 ml 450 ml Intake Oral 340 ml 450 ml # Voids 3 Laboratory Tests 05/05/16 06:58: White Blood Count 8.2, Red Blood Count 2.61L, Hemoglobin 8.2L, Hematocrit 25.8L , Mean Corpuscular Volume 99, Mean Corpuscular Hemoglobin 31.4H, Mean Corpuscular Hemoglobin Concent 31.8L, Red Cell Distribution Width 17.9H, Platelet Count 276, Mean Platelet Volume 4.9L, Neutrophils (%) (Auto) 64.4, Lymphocytes (%) (Auto) 16.9L, Monocytes (%) (Auto) 10.6H, Eosinophils (%) (Auto ) 7.1H, Basophils (%) (Auto) 1.0, Sodium Level 136, Potassium Level 5.1H, Chloride Level 92L, Carbon Dioxide Level 30, Anion Gap 14, Blood Urea Nitrogen 32H, Creatinine 5.9H, Estimat Glomerular Filtration Rate 8.8, Glucose Level 83, Uric Acid 5.0, Calcium Level 7.7L, Phosphorus Level 5.1H, Magnesium Level 2.0, Total Bilirubin 0.6, Gamma Glutamyl Transpeptidase 38H, Aspartate Amino Transf ( AST/SGOT) 14, Alanine Aminotransferase (ALT/SGPT) 5, Alkaline Phosphatase 103, C -Reactive Protein, Quantitative 7.3H, Pro-B-Type Natriuretic Peptide 91278M, Total Protein 7.3, Albumin 2.7L, Globulin 4.6, Albumin/Globulin Ratio 0.5L Height (Feet): 5 Height (Inches): 6.00 Weight (Pounds): 127 General Appearance: no apparent distress Cardiovascular: tachycardia Respiratory/Chest: decreased breath sounds Abdomen: distended Objective other physical exam not changed PEPE MONTERROSO May 05, 2016 12:17
--- NOTE | 2016-05-05 15:42 | Internal Med Progress Note ---
Subjective Date of Service: May 05, 2016 Physician Name Javier Alvarez Attending Physician Jackson Albright MD Current Medications Medications (Trade) Dose Ordered Sig/Ranjan Route PRN Reason Start Time Stop Time Status Last Admin Dose Admin Acetaminophen (Tylenol) 650 mg Q4H PRN ORAL fever 05/03/16 07:15 06/02/16 07:14 05/05/16 05:41 Albuterol/ Ipratropium (DuoNeb 0.5-3(2.5)mg/3ml) 3 ml Q6H PRN HHN dyspnea 05/03/16 07:15 05/08/16 07:14 Amlodipine Besylate (Norvasc) 10 mg DAILY ORAL 05/03/16 09:00 06/02/16 08:59 05/04/16 10:41 Aspirin (ASA) 81 mg DAILY ORAL 05/05/16 09:00 06/04/16 08:59 Calcitriol (Rocatrol) 0.25 mcg DAILY ORAL 05/03/16 09:00 06/02/16 08:59 05/05/16 08:43 Clonidine HCl (Catapres) 0.1 mg Q4H PRN ORAL For High Blood Pressure 05/03/16 07:15 06/02/16 07:14 Dextrose (Dextrose 50%) STAT PRN IV Hypoglycemia 05/03/16 07:15 06/02/16 07:14 Diphenhydramine HCl (Benadryl) 25 mg Q6H PRN ORAL Itching 05/05/16 13:15 06/04/16 13:14 05/05/16 13:34 Ergocalciferol (Drisdol) 50,000 intlu QWEEK ORAL 05/04/16 16:00 06/03/16 15:59 05/04/16 16:29 Heparin Sodium (Porcine) (Heparin 5000 units/ml) 5,000 units EVERY 12 HOURS SUBQ 05/03/16 09:00 06/02/16 08:59 05/03/16 21:35 Insulin Aspart (NovoLOG) BEFORE MEALS AND HS SUBQ 05/03/16 11:30 06/02/16 11:29 05/04/16 11:55 Lisinopril (Zestril) 5 mg Q12HR ORAL 05/04/16 12:00 06/03/16 11:59 05/04/16 21:29 Metoclopramide HCl (Reglan) 5 mg TIAC ORAL 05/03/16 16:30 06/02/16 11:29 05/05/16 06:52 Morphine Sulfate (Morphine Sulfate) 1 mg Q4H PRN IVP For Pain 05/03/16 07:15 05/10/16 07:14 05/05/16 08:53 Ondansetron HCl (Zofran) 4 mg Q6H PRN IVP Nausea & Vomiting 05/03/16 07:15 06/02/16 07:14 Pantoprazole (Protonix) 40 mg EVERY 12 HOURS ORAL 05/04/16 21:00 06/03/16 20:59 05/05/16 08:43 Polyethylene Glycol (Miralax) 17 gm HSPRN PRN ORAL Constipation 05/03/16 07:15 06/02/16 07:14 Trazodone HCl (Desyrel) 100 mg BEDTIME ORAL 05/03/16 21:00 06/02/16 20:59 05/04/16 21:29 Zolpidem Tartrate (Ambien) 5 mg HSPRN PRN ORAL Insomnia 05/03/16 07:15 06/02/16 07:14 05/03/16 21:29 Allergies: Coded Allergies: No Known Allergies (Unverified , 09/20/15) ROS Limited/Unobtainable: Yes Subjective 61 YO F admitted with chest pain. Cover for Int Edilma Albright. Objective Last Vital Signs Date Time Temp Pulse Resp B/P Pulse Ox O2 Delivery O2 Flow Rate FiO2 05/05/16 12:05 Room Air 05/05/16 11:42 97.9 96 18 143/88 95 05/04/16 11:32 2.0 General Appearance: mild distress, lethargic, thin EENT: PERRL/EOMI, normal ENT inspection, TMs normal Neck: non-tender, normal alignment, supple Cardiovascular: normal peripheral pulses, normal rate, regular rhythm, no gallop/murmur, no JVD Respiratory/Chest: chest wall non-tender, lungs clear, normal breath sounds, no respiratory distress, no accessory muscle use Abdomen: non tender, soft, no organomegaly, no mass, decreased bowel sounds, distended Extremities: normal range of motion Skin: normal pigmentation, warm/dry Laboratory Tests Test 05/05/16 06:58 White Blood Count 8.2 K/UL (4.8-10.8) Red Blood Count 2.61 M/UL (4.20-5.40) L Hemoglobin 8.2 G/DL (12.0-16.0) L Hematocrit 25.8 % (37.0-47.0) L Mean Corpuscular Volume 99 FL (80-99) Mean Corpuscular Hemoglobin 31.4 PG (27.0-31.0) H Mean Corpuscular Hemoglobin Concent 31.8 G/DL (32.0-36.0) L Red Cell Distribution Width 17.9 % (11.6-14.8) H Platelet Count 276 K/UL (150-450) Mean Platelet Volume 4.9 FL (6.5-10.1) L Neutrophils (%) (Auto) 64.4 % (45.0-75.0) Lymphocytes (%) (Auto) 16.9 % (20.0-45.0) L Monocytes (%) (Auto) 10.6 % (1.0-10.0) H Eosinophils (%) (Auto) 7.1 % (0.0-3.0) H Basophils (%) (Auto) 1.0 % (0.0-2.0) Sodium Level 136 mEQ/L (135-145) Potassium Level 5.1 mEQ/L (3.4-4.9) H Chloride Level 92 mEQ/L (98-107) L Carbon Dioxide Level 30 mEQ/L (20-30) Anion Gap 14 (5-15) Blood Urea Nitrogen 32 mg/dL (7-23) H Creatinine 5.9 mg/dL (0.5-0.9) H Estimat Glomerular Filtration Rate 8.8 mL/min (>60) Glucose Level 83 mg/dL (74-106) Uric Acid 5.0 mg/dL (3.0-7.5) Calcium Level 7.7 mg/dL (8.6-10.2) L Phosphorus Level 5.1 mg/dL (2.5-4.8) H Magnesium Level 2.0 mg/dL (1.7-2.5) Total Bilirubin 0.6 mg/dL (0.0-1.2) Gamma Glutamyl Transpeptidase 38 U/L (5-36) H Aspartate Amino Transf (AST/SGOT) 14 U/L (5-40) Alanine Aminotransferase (ALT/SGPT) 5 U/L (3-33) Alkaline Phosphatase 103 U/L (35-104) C-Reactive Protein, Quantitative 7.3 mg/dL (< 0.5) H Pro-B-Type Natriuretic Peptide 89920 pg/mL (0-125) H Total Protein 7.3 g/dL (6.6-8.7) Albumin 2.7 g/dL (3.5-5.2) L Globulin 4.6 g/dL Albumin/Globulin Ratio 0.5 (1.0-2.7) L Microbiology Date/Time Source Procedure Growth Status 05/03/16 06:00 Nasal Nares MRSA Culture - Final NO METHICILLIN RESISTANT STAPH AUREUS... Complete Intake and Output 05/04/16 05/05/16 19:00 07:00 Intake Total 340 ml 450 ml Balance 340 ml 450 ml Intake Oral 340 ml 450 ml # Voids 3 Assessment/Plan Problem List: (1) Ascites Assessment & Plan: See GI note-Dr Reyes. (2) Chest pain Assessment & Plan: See cardiology note. (3) Anemia Assessment & Plan: S/P transfusion 2 units PRBC. (4) ESRD (end stage renal disease) Assessment & Plan: Hemodialysis today per nephrol-Dr Sargent (5) CHF (congestive heart failure) (6) HTN (hypertension) Assessment & Plan: Cont lisinopril (7) Cirrhosis of liver Status: not improved JAVIER ALVAREZ May 05, 2016 15:42
--- NOTE | 2016-05-05 17:26 | Diagnostic Imaging Report ---
Indications: Ascites Technique: Ultrasound used to localize optimal puncture site. Sterile prepping and draping . Local anesthesia with 1% lidocaine. Under real-time ultrasound guidance, puncture peritoneal space using paracentesis needle. Stylet removed. Catheter placed to vacuum bottle suction. Total 3.3 liters of fluid aspirated. Patient tolerated procedure well, without immediate complication. Findings: Followup sonography demonstrates near-complete resolution of peritoneal fluid. Impression: Successful ultrasound-guided paracentesis, yielding 3.3 liters of fluid
--- NOTE | 2016-05-05 18:18 | Consultation ---
DATE OF CONSULTATION: 05/04/2016 CARDIOLOGY CONSULTATION CONSULTING PHYSICIAN: Kevyn Dillard M.D. REFERRING PHYSICIAN: Adair Huerta M.D. REASON FOR CONSULTATION: Shortness of breath. HISTORY OF PRESENT ILLNESS: This is an elderly female who is known to me from recent hospitalization. The patient presented back to the hospital because of increasing abdominal girth. Apparently when she came to the emergency room, she had complaints of some chest pain, midsternal, pressure-like, 8/10, and nonradiating. The patient was given aspirin and nitroglycerin by EMS without relief and was brought to the emergency room. At the present time, her main complaint is the fact that her abdominal girth is increasing. She does have shortness of breath. Denies orthopnea or PND. Dyspnea on exertion. She was able to sit up. She did get dizziness a few days ago, but not at the present time. No palpitations. PAST MEDICAL HISTORY: Extensive. She was recently hospitalized and evaluated here for multiple medical problems including the fact that she had had elevated tumor markers. She had anemia of chronic disease and a nodule in the liver. She has hypertension, history of alcohol abuse, abdominal pain, and atelectasis. She has a history of hospitalization for diastolic heart failure, diabetes mellitus, polysubstance abuse, end-stage renal disease on hemodialysis, hyperkalemia, severe deconditioning, systemic hypertension, malnutrition, and AV fistula. She has abnormal liver function tests, thrombocytopenia, pancreatitis, significant tricuspid and aortic regurgitation, pulmonary hypertension, and hypothyroidism. Apparently previously negative ischemia evaluation. ascites as well. ALLERGIES: She is not allergic to any medication. SOCIAL HISTORY: She used to smoke and drink until a few months ago. Denies any excessive smoking or drinking at the present time. drug use. REVIEW OF SYSTEMS: Gastrointestinal: She is positive for constipation and abdominal pain. Genitourinary: She did have some burning on urination. Pulmonary: Occasional coughing. Constitutional: She has had some fevers. Neurological: Negative. PHYSICAL EXAMINATION: GENERAL: Shows to be elderly female in no respiratory distress. She is actually laying down at approximately 10-20 degrees head of bed elevation. HEENT: She has had a double vision. NECK: Supple. No jugular venous distention. LUNGS: Crackles on the left side. Decreased breath sounds on right side. CARDIAC: Regular rate and rhythm. Holosystolic murmur is noted. ABDOMEN: Distended. Positive fluid wave. Positive tenderness. No guarding. No rigidity. No rebound tenderness. EXTREMITIES: There is trace edema. NEUROLOGIC: She is awake, responsive, in no apparent respiratory distress. LABORATORY VALUES: White count of 6.9, hemoglobin 8.4, and platelet count of . Sodium 138, potassium 4.8, chloride 93, bicarbonate 30, BUN 26, creatinine 5.1, glucose 120, and calcium 7.4. Troponin less than 0.03 on multiple occasions, last time and this time. A proBNP of 32,000. Albumin is 2.9. Cholesterol of 137. TSH of 11.8, up from 11.1. Serum protein electrophoresis is negative for abnormal protein . Chest x-ray performed a few days ago shows right basal infiltrate, pleural effusion, and cardiomegaly. Her last echocardiogram here was on 04/18/2016 and showed ejection fraction of 30% with diastolic relaxation abnormality, moderate tricuspid regurgitation, pulmonary systolic pressure of 60, mild aortic regurgitation, and mild mitral regurgitation. ASSESSMENT: 1. Ascites. 2. Diastolic heart failure history. 3. Elevated tumor markers. 4. End-stage renal disease, on hemodialysis. 5. Anemia. 6. Systemic hypertension. 7. History of alcohol use. 8. Cirrhosis of the liver. This patient was seen in cardiac consultation. The patient is scheduled to undergo paracentesis, which I think will help her most. Current concerns are possibilities of infectious etiologies, may include SBP in the differential diagnosis. A urine culture showed E. coli and Enterococcus. Cardiac john the patient appears to be relatively stable at the present time. I will follow the patient along with you. Kevyn Dillard M.D. DR: DAVEY JOB#: [id number] CC:
--- NOTE | 2016-05-05 19:02 | Cardiology Progress Note ---
Assessment/Plan Assessment/Plan 1. Ascites. 2. Diastolic heart failure history. 3. Elevated tumor markers. 4. End-stage renal disease, on hemodialysis. 5. Anemia. 6. Systemic hypertension. 7. History of alcohol use. 8. Cirrhosis of the liver. had paracentesis of 3.5 liter now better bp is elevated will increase the sondra i tele neg will dc tele she feel better but likely will have recurrrence of fluid Subjective Cardiovascular: Denies: chest pain, lightheadedness, palpitations Respiratory: Reports: shortness of breath - better Gastrointestinal/Abdominal: Reports: abdomen distended - better post paracentesis of 3.5 liters Genitourinary: Denies: burning Objective Last 24 Hour Vital Signs Date Time Temp Pulse Resp B/P Pulse Ox O2 Delivery O2 Flow Rate FiO2 05/05/16 16:00 98.2 107 21 157/89 98 Room Air 05/05/16 15:15 Room Air 05/05/16 12:05 Room Air 05/05/16 11:42 97.9 96 18 143/88 95 Room Air 05/05/16 09:23 97.9 05/05/16 08:16 97.9 98 18 132/78 96 Room Air 05/05/16 08:09 101 05/05/16 07:08 97 20 Room Air 05/05/16 04:00 108 05/05/16 04:00 98.8 110 18 130/60 94 Room Air 05/05/16 00:00 106 05/05/16 00:00 98.6 107 18 144/86 92 Room Air 05/04/16 21:29 149/95 05/04/16 20:00 104 05/04/16 20:00 99.1 104 20 149/95 99 Room Air 05/04/16 19:30 100 20 Room Air General Appearance: no apparent distress, alert Neck: supple Cardiovascular: normal rate, regular rhythm Respiratory/Chest: lungs clear Abdomen: non tender, soft Intake and Output 05/04/16 05/05/16 19:00 07:00 Intake Total 340 ml 450 ml Balance 340 ml 450 ml Intake Oral 340 ml 450 ml # Voids 3 Laboratory Tests Test 05/05/16 06:58 05/05/16 16:15 White Blood Count 8.2 K/UL (4.8-10.8) Red Blood Count 2.61 M/UL (4.20-5.40) L Hemoglobin 8.2 G/DL (12.0-16.0) L Hematocrit 25.8 % (37.0-47.0) L Mean Corpuscular Volume 99 FL (80-99) Mean Corpuscular Hemoglobin 31.4 PG (27.0-31.0) H Mean Corpuscular Hemoglobin Concent 31.8 G/DL (32.0-36.0) L Red Cell Distribution Width 17.9 % (11.6-14.8) H Platelet Count 276 K/UL (150-450) Mean Platelet Volume 4.9 FL (6.5-10.1) L Neutrophils (%) (Auto) 64.4 % (45.0-75.0) Lymphocytes (%) (Auto) 16.9 % (20.0-45.0) L Monocytes (%) (Auto) 10.6 % (1.0-10.0) H Eosinophils (%) (Auto) 7.1 % (0.0-3.0) H Basophils (%) (Auto) 1.0 % (0.0-2.0) Sodium Level 136 mEQ/L (135-145) Potassium Level 5.1 mEQ/L (3.4-4.9) H Chloride Level 92 mEQ/L (98-107) L Carbon Dioxide Level 30 mEQ/L (20-30) Anion Gap 14 (5-15) Blood Urea Nitrogen 32 mg/dL (7-23) H Creatinine 5.9 mg/dL (0.5-0.9) H Estimat Glomerular Filtration Rate 8.8 mL/min (>60) Glucose Level 83 mg/dL (74-106) Uric Acid 5.0 mg/dL (3.0-7.5) Calcium Level 7.7 mg/dL (8.6-10.2) L Phosphorus Level 5.1 mg/dL (2.5-4.8) H Magnesium Level 2.0 mg/dL (1.7-2.5) Total Bilirubin 0.6 mg/dL (0.0-1.2) Gamma Glutamyl Transpeptidase 38 U/L (5-36) H Aspartate Amino Transf (AST/SGOT) 14 U/L (5-40) Alanine Aminotransferase (ALT/SGPT) 5 U/L (3-33) Alkaline Phosphatase 103 U/L (35-104) C-Reactive Protein, Quantitative 7.3 mg/dL (< 0.5) H Pro-B-Type Natriuretic Peptide 12468 pg/mL (0-125) H Total Protein 7.3 g/dL (6.6-8.7) Albumin 2.7 g/dL (3.5-5.2) L Globulin 4.6 g/dL Albumin/Globulin Ratio 0.5 (1.0-2.7) L Body Fluid Source Pending Body Fluid Volume Pending Body Fluid Appearance Pending Body Fluid RBC Pending Body Fluid Total Nucleated Cells Pending Body Fluid Polynuclear WBCs (%) Pending Body Fluid Mononuclear WBCs (%) Pending Body Fluid Mesothelial Cells (%) Pending Body Fluid Glucose Pending Body Fluid Total Protein Pending Body Fluid Albumin Pending Microbiology Date/Time Source Procedure Growth Status 05/03/16 06:00 Nasal Nares MRSA Culture - Final NO METHICILLIN RESISTANT STAPH AUREUS... Complete BETTIE URBANO May 05, 2016 19:02
[2016-05-05] MEDS: TraZODone 100mg tab ORAL SCH (22:18)
[2016-05-05 22:31] LABS: APPEARANCE, BODY FLUID HAZY; BD FL VOLUME 27 mL
[2016-05-05 22:32] LABS: BD FL SOURCE PARACENTESIS
[2016-05-05 22:33] LABS: BODY FLUID NUCLEATED CELLS 131 /CUMM; BODY FLUID RBC 1164 /CUMM; COMMENT,BODY FLUID PALE YELLOW; MONONUCLEAR WBC 5 %; POLYMORPHONUCLEAR WBC 76 %
--- NOTE | 2016-05-05 22:50 | Pulmonology Progress Note ---
Assessment/Plan Problems: (1) ACS (acute coronary syndrome) (2) Anemia (3) HTN (hypertension) (4) H/O ETOH abuse (5) Diabetes (6) ESRD (end stage renal disease) (7) Cirrhosis of liver Assessment/Plan paracentesis cardiology f/u respiratory treatment titrate fio2 to sat of 92% monitor bp Subjective ROS Limited/Unobtainable: No Constitutional: Reports: anorexia, fatigue Gastrointestinal/Abdominal: Reports: bloating, nausea, vomiting Neurologic: Reports: confusion, weakness Allergies: Coded Allergies: No Known Allergies (Unverified , 09/20/15) Objective Last 24 Hour Vital Signs Date Time Temp Pulse Resp B/P Pulse Ox O2 Delivery O2 Flow Rate FiO2 05/05/16 22:18 157/92 05/05/16 20:00 98.0 111 20 157/92 95 Room Air 05/05/16 19:59 96 18 Room Air 05/05/16 16:00 98.2 107 21 157/89 98 Room Air 05/05/16 15:15 Room Air 05/05/16 12:05 Room Air 05/05/16 11:42 97.9 96 18 143/88 95 Room Air 05/05/16 09:23 97.9 05/05/16 08:16 97.9 98 18 132/78 96 Room Air 05/05/16 08:09 101 05/05/16 07:08 97 20 Room Air 05/05/16 04:00 108 05/05/16 04:00 98.8 110 18 130/60 94 Room Air 05/05/16 00:00 106 05/05/16 00:00 98.6 107 18 144/86 92 Room Air Intake and Output 05/04/16 05/05/16 19:00 07:00 Intake Total 340 ml 450 ml Balance 340 ml 450 ml Intake Oral 340 ml 450 ml # Voids 3 General Appearance: no acute distress HEENT: normocephalic, atraumatic, PERRL Respiratory/Chest: chest wall non-tender, decreased breath sounds, accessory muscle use Cardiovascular: normal peripheral pulses, normal rate, regular rhythm, no JVD Abdomen: normal bowel sounds, soft, non tender, no organomegaly Genitourinary: normal external genitalia Extremities: no cyanosis Neurologic/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 Complete Laboratory Tests 05/05/16 06:58: White Blood Count 8.2, Red Blood Count 2.61L, Hemoglobin 8.2L, Hematocrit 25.8L , Mean Corpuscular Volume 99, Mean Corpuscular Hemoglobin 31.4H, Mean Corpuscular Hemoglobin Concent 31.8L, Red Cell Distribution Width 17.9H, Platelet Count 276, Mean Platelet Volume 4.9L, Neutrophils (%) (Auto) 64.4, Lymphocytes (%) (Auto) 16.9L, Monocytes (%) (Auto) 10.6H, Eosinophils (%) (Auto ) 7.1H, Basophils (%) (Auto) 1.0, Sodium Level 136, Potassium Level 5.1H, Chloride Level 92L, Carbon Dioxide Level 30, Anion Gap 14, Blood Urea Nitrogen 32H, Creatinine 5.9H, Estimat Glomerular Filtration Rate 8.8, Glucose Level 83, Uric Acid 5.0, Calcium Level 7.7L, Phosphorus Level 5.1H, Magnesium Level 2.0, Total Bilirubin 0.6, Gamma Glutamyl Transpeptidase 38H, Aspartate Amino Transf ( AST/SGOT) 14, Alanine Aminotransferase (ALT/SGPT) 5, Alkaline Phosphatase 103, C -Reactive Protein, Quantitative 7.3H, Pro-B-Type Natriuretic Peptide 98520M, Total Protein 7.3, Albumin 2.7L, Globulin 4.6, Albumin/Globulin Ratio 0.5L 05/05/16 16:15: Body Fluid Source Paracentesis, Body Fluid Volume 27, Body Fluid Appearance Hazy , Body Fluid RBC 1164, Body Fluid Total Nucleated Cells 131, Body Fluid Polynuclear WBCs (%) 76, Body Fluid Mononuclear WBCs (%) 5, Body Fluid Mesothelial Cells (%) 3, Body Fluid Glucose [Pending], Body Fluid Total Protein [Pending], Body Fluid Albumin [Pending], Body Fluid Comment Pale yellow Current Medications Medications (Trade) Dose Ordered Sig/Ranjan Route PRN Reason Start Time Stop Time Status Last Admin Dose Admin Acetaminophen (Tylenol) 650 mg Q4H PRN ORAL fever 05/03/16 07:15 06/02/16 07:14 05/05/16 05:41 Albuterol/ Ipratropium (DuoNeb 0.5-3(2.5)mg/3ml) 3 ml Q6H PRN HHN dyspnea 05/03/16 07:15 05/08/16 07:14 Amlodipine Besylate (Norvasc) 10 mg DAILY ORAL 05/03/16 09:00 06/02/16 08:59 05/04/16 10:41 Aspirin (ASA) 81 mg DAILY ORAL 05/05/16 09:00 06/04/16 08:59 Calcitriol (Rocatrol) 0.25 mcg DAILY ORAL 05/03/16 09:00 06/02/16 08:59 05/05/16 08:43 Clonidine HCl (Catapres) 0.1 mg Q4H PRN ORAL For High Blood Pressure 05/03/16 07:15 06/02/16 07:14 Dextrose (Dextrose 50%) STAT PRN IV Hypoglycemia 05/03/16 07:15 06/02/16 07:14 Diphenhydramine HCl (Benadryl) 25 mg Q6H PRN ORAL Itching 05/05/16 13:15 06/04/16 13:14 05/05/16 22:18 Ergocalciferol (Drisdol) 50,000 intlu QWEEK ORAL 05/04/16 16:00 06/03/16 15:59 05/04/16 16:29 Heparin Sodium (Porcine) (Heparin 5000 units/ml) 5,000 units EVERY 12 HOURS SUBQ 05/03/16 09:00 06/02/16 08:59 05/05/16 22:21 Insulin Aspart (NovoLOG) BEFORE MEALS AND HS SUBQ 05/03/16 11:30 06/02/16 11:29 05/04/16 11:55 Lisinopril (Zestril) 10 mg Q12HR ORAL 05/05/16 21:00 06/04/16 20:59 05/05/16 22:18 Metoclopramide HCl (Reglan) 5 mg TIAC ORAL 05/03/16 16:30 06/02/16 11:29 05/05/16 18:56 Morphine Sulfate (Morphine Sulfate) 1 mg Q4H PRN IVP For Pain 05/03/16 07:15 05/10/16 07:14 05/05/16 18:57 Ondansetron HCl (Zofran) 4 mg Q6H PRN IVP Nausea & Vomiting 05/03/16 07:15 06/02/16 07:14 Pantoprazole (Protonix) 40 mg EVERY 12 HOURS ORAL 05/04/16 21:00 06/03/16 20:59 05/05/16 22:17 Polyethylene Glycol (Miralax) 17 gm HSPRN PRN ORAL Constipation 05/03/16 07:15 06/02/16 07:14 Trazodone HCl (Desyrel) 100 mg BEDTIME ORAL 05/03/16 21:00 06/02/16 20:59 05/05/16 22:18 Zolpidem Tartrate (Ambien) 5 mg HSPRN PRN ORAL Insomnia 05/03/16 07:15 06/02/16 07:14 05/03/16 21:29 ANN MARIE OSULLIVAN May 05, 2016 22:49
[2016-05-06] VITALS: BP 158/88
[2016-05-06 04:00] VITALS: BP 155/88
[2016-05-06] MEDS: Morphine Sulfate 2mg/ml Inj IVP PRN ×3 (06:00→20:56)
[2016-05-06] MEDS: NovoLOG Insulin Flexpen SUBQ SCH ×4 (06:15→21:04)
[2016-05-06 08:00] VITALS: BP 148/79
[2016-05-06] MEDS: Heparin 5000 units/ml inj SUBQ SCH ×2 (09:39→21:05)
[2016-05-06] MEDS: Aspirin Baby 81mg ORAL SCH (09:42)
[2016-05-06] MEDS: Lisinopril 2.5mg tab ORAL SCH (09:42)
[2016-05-06] MEDS: Calcitriol 0.25mcg Cap ORAL SCH (09:49)
--- NOTE | 2016-05-06 09:55 | General Progress Note ---
Assessment/Plan Status: stable Status Narrative had HD 05/05 Assessment/Plan status: ESRD- HyperKalemia- resolved Ascitis- worsening severe Anemia- transfused DM HTN At Fib Plan: HD 05/05 optimize cardiac and pulmonary status- BP meds adjustment- No labs today- 2 D Echo previous admission: Left ventricular ejection fraction estimated to be 70 %. Monitor lytes and renal parameters- Per consultants Transfused 05/03 Paracynthesis, Ascitis aspiration 05/05 Subjective ROS Limited/Unobtainable: No Constitutional: Reports: malaise Allergies: Coded Allergies: No Known Allergies (Unverified , 09/20/15) Objective Last 24 Hour Vital Signs Date Time Temp Pulse Resp B/P Pulse Ox O2 Delivery O2 Flow Rate FiO2 05/06/16 09:42 148/79 05/06/16 09:42 99 148/79 05/06/16 08:00 98.8 99 18 148/79 96 Room Air 05/06/16 07:37 103 20 Room Air 05/06/16 04:00 99.1 103 18 155/88 Room Air 05/06/16 04:00 100 05/06/16 00:00 99.3 110 20 158/88 95 Room Air 05/06/16 00:00 109 05/05/16 22:18 157/92 05/05/16 20:00 106 05/05/16 20:00 98.0 111 20 157/92 95 Room Air 05/05/16 19:59 96 18 Room Air 05/05/16 16:00 98.2 107 21 157/89 98 Room Air 05/05/16 16:00 109 05/05/16 15:15 Room Air 05/05/16 12:05 Room Air 05/05/16 11:42 97.9 96 18 143/88 95 Room Air Intake and Output 05/05/16 05/06/16 19:00 07:00 Intake Total 320 ml Output Total 2260 ml Balance -2260 ml 320 ml Intake Oral 320 ml Hemodialysis UF 2260 ml Laboratory Tests 05/05/16 16:15: Body Fluid Source Paracentesis, Body Fluid Volume 27, Body Fluid Appearance Hazy , Body Fluid RBC 1164, Body Fluid Total Nucleated Cells 131, Body Fluid Polynuclear WBCs (%) 76, Body Fluid Mononuclear WBCs (%) 5, Body Fluid Mesothelial Cells (%) 3, Body Fluid Glucose [Pending], Body Fluid Total Protein [Pending], Body Fluid Albumin [Pending], Body Fluid Comment Pale yellow Height (Feet): 5 Height (Inches): 6.00 Weight (Pounds): 127 General Appearance: no apparent distress Objective other physical exam not changed PEPE MONTERROSO 18, 2017 09:55
--- NOTE | 2016-05-06 10:09 | General Progress Note ---
Assessment/Plan Problem List: (1) HTN (hypertension) ICD Codes: I10 - Essential (primary) hypertension SNOMED: 15547943 (2) ESRD (end stage renal disease) ICD Codes: N18.6 - End stage renal disease SNOMED: 39741167 (3) Cirrhosis of liver ICD Codes: K74.60 - Unspecified cirrhosis of liver SNOMED: 43687167 (4) Gastritis ICD Codes: K29.70 - Gastritis, unspecified, without bleeding SNOMED: 4769285 (5) Diabetes ICD Codes: E11.9 - Type 2 diabetes mellitus without complications SNOMED: 55741133 (6) Anemia ICD Codes: D64.9 - Anemia, unspecified SNOMED: 568268932 Qualifiers: Qualified Codes: D64.9 - Anemia, unspecified (7) Hepatomegaly ICD Codes: R16.0 - Hepatomegaly, not elsewhere classified SNOMED: 39723723 Assessment/Plan fu H&H>>> stable fu stool ob lactulose xifaxan prn paracenthesis last one yesterday fu cardiology recs needs out patient referal for liver transplant when sober over 6 months Subjective ROS Limited/Unobtainable: Yes Allergies: Coded Allergies: No Known Allergies (Unverified , 09/20/15) Subjective no event Objective Last 24 Hour Vital Signs Date Time Temp Pulse Resp B/P Pulse Ox O2 Delivery O2 Flow Rate FiO2 05/06/16 09:42 148/79 05/06/16 09:42 99 148/79 05/06/16 08:00 98.8 99 18 148/79 96 Room Air 05/06/16 07:37 103 20 Room Air 05/06/16 04:00 99.1 103 18 155/88 Room Air 05/06/16 04:00 100 05/06/16 00:00 99.3 110 20 158/88 95 Room Air 05/06/16 00:00 109 05/05/16 22:18 157/92 05/05/16 20:00 106 05/05/16 20:00 98.0 111 20 157/92 95 Room Air 05/05/16 19:59 96 18 Room Air 05/05/16 16:00 98.2 107 21 157/89 98 Room Air 05/05/16 16:00 109 05/05/16 15:15 Room Air 05/05/16 12:05 Room Air 05/05/16 11:42 97.9 96 18 143/88 95 Room Air Intake and Output 05/05/16 05/06/16 19:00 07:00 Intake Total 320 ml Output Total 2260 ml Balance -2260 ml 320 ml Intake Oral 320 ml Hemodialysis UF 2260 ml Laboratory Tests 05/05/16 16:15: Body Fluid Source Paracentesis, Body Fluid Volume 27, Body Fluid Appearance Hazy , Body Fluid RBC 1164, Body Fluid Total Nucleated Cells 131, Body Fluid Polynuclear WBCs (%) 76, Body Fluid Mononuclear WBCs (%) 5, Body Fluid Mesothelial Cells (%) 3, Body Fluid Glucose [Pending], Body Fluid Total Protein [Pending], Body Fluid Albumin [Pending], Body Fluid Comment Pale yellow Height (Feet): 5 Height (Inches): 6.00 Weight (Pounds): 127 General Appearance: alert EENT: normal ENT inspection Neck: supple Cardiovascular: normal rate Respiratory/Chest: decreased breath sounds Abdomen: soft, hypoactive bowel sounds, tender Extremities: non-tender GEOVANNY RAMIREZ May 06, 2016 10:09
[2016-05-06 12:25] VITALS: BP 122/69
--- NOTE | 2016-05-06 13:12 | Pulmonology Progress Note ---
Assessment/Plan Assessment/Plan ASSESSMENT ESRD, on HD elevated tumor markers HTN ascites liver cirrhosis s/p paracentesis hx of ETOH abuse hx of diastolic CHF DM anemia s/p blood transfusion gastritis PLAN OF CARE tele s/p paracentesis-3.3 L , ascitic fluid cx-preliminary negative O2 HHN prn BP management with CCB and SABINE continue ASA ECHO with EF 70% on previous admission cardio follows tele negative ok to transfer to [facility] floor monitor HH stool OB GI follows on Rifaximin and Lactulose paracentesis prn not stable for colonoscopy as per GI HD as per nephro monitor renal parameters, lytes, replace as needed DVT, GI prophylaxis case discussed and evaluated by supervising physician Subjective Allergies: Coded Allergies: No Known Allergies (Unverified , 09/20/15) Subjective denies chest pain, SOB, palpitations cardio cleared for transfer to [facility] floor s/p paracentesis 05/05 HH stable after blood transfusion Objective Last 24 Hour Vital Signs Date Time Temp Pulse Resp B/P Pulse Ox O2 Delivery O2 Flow Rate FiO2 05/06/16 12:25 98.4 104 18 122/69 95 Room Air 05/06/16 12:00 105 05/06/16 09:42 148/79 05/06/16 09:42 99 148/79 05/06/16 08:00 98.8 99 18 148/79 96 Room Air 05/06/16 08:00 105 05/06/16 07:37 103 20 Room Air 05/06/16 04:00 99.1 103 18 155/88 Room Air 05/06/16 04:00 100 05/06/16 00:00 99.3 110 20 158/88 95 Room Air 05/06/16 00:00 109 05/05/16 22:18 157/92 05/05/16 20:00 106 05/05/16 20:00 98.0 111 20 157/92 95 Room Air 05/05/16 19:59 96 18 Room Air 05/05/16 16:00 98.2 107 21 157/89 98 Room Air 05/05/16 16:00 109 05/05/16 15:15 Room Air Intake and Output 05/05/16 05/06/16 19:00 07:00 Intake Total 320 ml Output Total 2260 ml Balance -2260 ml 320 ml Intake Oral 320 ml Hemodialysis UF 2260 ml Objective General Appearance: WD/WN, no apparent distress, alert EENT: PERRL/EOMI, Neck: non-tender, normal alignment, supple Cardiovascular: normal peripheral pulses, tachy, ST on tele, regular rhythm, no gallop/murmur, no JVD Respiratory/Chest: chest wall non-tender, lungs clear, normal breath sounds, no respiratory distress, no accessory muscle use Abdomen: no organomegaly, no mass, decreased bowel sounds, distended, tender Extremities: normal range of motion Skin: normal pigmentation, warm/dry Microbiology Date/Time Source Procedure Growth Status 05/05/16 16:15 Ascities Fluid Gram Stain - Final Resulted 05/05/16 16:15 Ascities Fluid Body Fluid Culture - Preliminary NO GROWTH Resulted Laboratory Tests 05/05/16 16:15: Body Fluid Source Paracentesis, Body Fluid Volume 27, Body Fluid Appearance Hazy , Body Fluid RBC 1164, Body Fluid Total Nucleated Cells 131, Body Fluid Polynuclear WBCs (%) 76, Body Fluid Mononuclear WBCs (%) 5, Body Fluid Mesothelial Cells (%) 3, Body Fluid Glucose [Pending], Body Fluid Total Protein [Pending], Body Fluid Albumin [Pending], Body Fluid Comment Pale yellow Current Medications Medications (Trade) Dose Ordered Sig/Ranjan Route PRN Reason Start Time Stop Time Status Last Admin Dose Admin Acetaminophen (Tylenol) 650 mg Q4H PRN ORAL fever 05/03/16 07:15 06/02/16 07:14 05/05/16 05:41 Albuterol/ Ipratropium (DuoNeb 0.5-3(2.5)mg/3ml) 3 ml Q6H PRN HHN dyspnea 05/03/16 07:15 05/08/16 07:14 Amlodipine Besylate (Norvasc) 10 mg DAILY ORAL 05/03/16 09:00 06/02/16 08:59 05/06/16 09:42 Aspirin (ASA) 81 mg DAILY ORAL 05/05/16 09:00 06/04/16 08:59 05/06/16 09:42 Calcitriol (Rocatrol) 0.25 mcg DAILY ORAL 05/03/16 09:00 06/02/16 08:59 05/06/16 09:49 Clonidine HCl (Catapres) 0.1 mg Q4H PRN ORAL For High Blood Pressure 05/03/16 07:15 06/02/16 07:14 Dextrose (Dextrose 50%) STAT PRN IV Hypoglycemia 05/03/16 07:15 06/02/16 07:14 Diphenhydramine HCl (Benadryl) 25 mg Q6H PRN ORAL Itching 05/05/16 13:15 06/04/16 13:14 05/05/16 22:18 Ergocalciferol (Drisdol) 50,000 intlu QWEEK ORAL 05/04/16 16:00 06/03/16 15:59 05/04/16 16:29 Heparin Sodium (Porcine) (Heparin 5000 units/ml) 5,000 units EVERY 12 HOURS SUBQ 05/03/16 09:00 06/02/16 08:59 05/06/16 09:39 Insulin Aspart (NovoLOG) BEFORE MEALS AND HS SUBQ 05/03/16 11:30 06/02/16 11:29 05/06/16 12:20 Lisinopril (Prinivil) 20 mg Q12HR ORAL 05/06/16 21:00 06/05/16 20:59 Metoclopramide HCl (Reglan) 5 mg TIAC ORAL 05/03/16 16:30 06/02/16 11:29 05/06/16 12:26 Morphine Sulfate (Morphine Sulfate) 1 mg Q4H PRN IVP For Pain 05/03/16 07:15 05/10/16 07:14 05/06/16 12:27 Ondansetron HCl (Zofran) 4 mg Q6H PRN IVP Nausea & Vomiting 05/03/16 07:15 06/02/16 07:14 Pantoprazole (Protonix) 40 mg EVERY 12 HOURS ORAL 05/04/16 21:00 06/03/16 20:59 05/06/16 09:42 Polyethylene Glycol (Miralax) 17 gm HSPRN PRN ORAL Constipation 05/03/16 07:15 06/02/16 07:14 Trazodone HCl (Desyrel) 100 mg BEDTIME ORAL 05/03/16 21:00 06/02/16 20:59 05/05/16 22:18 Zolpidem Tartrate (Ambien) 5 mg HSPRN PRN ORAL Insomnia 05/03/16 07:15 06/02/16 07:14 05/03/16 21:29 [place] ([facility])Patti NP May 06, 2016 13:12
--- NOTE | 2016-05-06 15:46 | Cardiology Progress Note ---
Assessment/Plan Assessment/Plan HTN liver cirrhosis stable from cardiac stndpoint Subjective Subjective the patient is sitting in her bed complaining on itching no dyspnea no chest pain Objective Last 24 Hour Vital Signs Date Time Temp Pulse Resp B/P Pulse Ox O2 Delivery O2 Flow Rate FiO2 05/06/16 12:25 98.4 104 18 122/69 95 Room Air 05/06/16 12:00 105 05/06/16 09:42 148/79 05/06/16 09:42 99 148/79 05/06/16 08:00 98.8 99 18 148/79 96 Room Air 05/06/16 08:00 105 05/06/16 07:37 103 20 Room Air 05/06/16 04:00 99.1 103 18 155/88 Room Air 05/06/16 04:00 100 05/06/16 00:00 99.3 110 20 158/88 95 Room Air 05/06/16 00:00 109 05/05/16 22:18 157/92 05/05/16 20:00 106 05/05/16 20:00 98.0 111 20 157/92 95 Room Air 05/05/16 19:59 96 18 Room Air 05/05/16 16:00 98.2 107 21 157/89 98 Room Air 05/05/16 16:00 109 General Appearance: thin EENT: PERRL/EOMI Neck: JVD Rhythm: NSR Cardiovascular: normal rate Respiratory/Chest: lungs clear Abdomen: distended, tender Extremities: no swelling Intake and Output 05/05/16 05/06/16 19:00 07:00 Intake Total 320 ml Output Total 2260 ml Balance -2260 ml 320 ml Intake Oral 320 ml Hemodialysis UF 2260 ml Laboratory Tests Test 05/05/16 16:15 Body Fluid Source Paracentesis Body Fluid Volume 27 mL Body Fluid Appearance Hazy Body Fluid RBC 1164 /CUMM Body Fluid Total Nucleated Cells 131 /CUMM Body Fluid Polynuclear WBCs (%) 76 % Body Fluid Mononuclear WBCs (%) 5 % Body Fluid Mesothelial Cells (%) 3 % Body Fluid Glucose Pending Body Fluid Total Protein Pending Body Fluid Albumin Pending Body Fluid Comment Pale yellow Microbiology Date/Time Source Procedure Growth Status 05/05/16 16:15 Ascities Fluid Gram Stain - Final Resulted 05/05/16 16:15 Ascities Fluid Body Fluid Culture - Preliminary NO GROWTH Resulted SULY MOORE May 06, 2016 15:46
[2016-05-06 16:00] VITALS: BP 117/72
--- NOTE | 2016-05-06 16:41 | Internal Med Progress Note ---
Subjective Date of Service: May 06, 2016 Physician Name Javier Alvarez Attending Physician Jackson Albright MD Current Medications Medications (Trade) Dose Ordered Sig/Ranjan Route PRN Reason Start Time Stop Time Status Last Admin Dose Admin Acetaminophen (Tylenol) 650 mg Q4H PRN ORAL fever 05/03/16 07:15 06/02/16 07:14 05/05/16 05:41 Albuterol/ Ipratropium (DuoNeb 0.5-3(2.5)mg/3ml) 3 ml Q6H PRN HHN dyspnea 05/03/16 07:15 05/08/16 07:14 Amlodipine Besylate (Norvasc) 10 mg DAILY ORAL 05/03/16 09:00 06/02/16 08:59 05/06/16 09:42 Aspirin (ASA) 81 mg DAILY ORAL 05/05/16 09:00 06/04/16 08:59 05/06/16 09:42 Calcitriol (Rocatrol) 0.25 mcg DAILY ORAL 05/03/16 09:00 06/02/16 08:59 05/06/16 09:49 Clonidine HCl (Catapres) 0.1 mg Q4H PRN ORAL For High Blood Pressure 05/03/16 07:15 06/02/16 07:14 Dextrose (Dextrose 50%) STAT PRN IV Hypoglycemia 05/03/16 07:15 06/02/16 07:14 Diphenhydramine HCl (Benadryl) 25 mg Q6H PRN ORAL Itching 05/05/16 13:15 06/04/16 13:14 05/05/16 22:18 Ergocalciferol (Drisdol) 50,000 intlu QWEEK ORAL 05/04/16 16:00 06/03/16 15:59 05/04/16 16:29 Heparin Sodium (Porcine) (Heparin 5000 units/ml) 5,000 units EVERY 12 HOURS SUBQ 05/03/16 09:00 06/02/16 08:59 05/06/16 09:39 Insulin Aspart (NovoLOG) BEFORE MEALS AND HS SUBQ 05/03/16 11:30 06/02/16 11:29 05/06/16 12:20 Lisinopril (Prinivil) 20 mg Q12HR ORAL 05/06/16 21:00 06/05/16 20:59 Metoclopramide HCl (Reglan) 5 mg TIAC ORAL 05/03/16 16:30 06/02/16 11:29 05/06/16 12:26 Morphine Sulfate (Morphine Sulfate) 1 mg Q4H PRN IVP For Pain 05/03/16 07:15 05/10/16 07:14 05/06/16 12:27 Ondansetron HCl (Zofran) 4 mg Q6H PRN IVP Nausea & Vomiting 05/03/16 07:15 06/02/16 07:14 Pantoprazole (Protonix) 40 mg EVERY 12 HOURS ORAL 05/04/16 21:00 06/03/16 20:59 05/06/16 09:42 Polyethylene Glycol (Miralax) 17 gm HSPRN PRN ORAL Constipation 05/03/16 07:15 06/02/16 07:14 Trazodone HCl (Desyrel) 100 mg BEDTIME ORAL 05/03/16 21:00 06/02/16 20:59 05/05/16 22:18 Zolpidem Tartrate (Ambien) 5 mg HSPRN PRN ORAL Insomnia 05/03/16 07:15 06/02/16 07:14 05/03/16 21:29 Allergies: Coded Allergies: No Known Allergies (Unverified , 09/20/15) ROS Limited/Unobtainable: No Constitutional: Reports: no symptoms HEENT: Reports: no symptoms Cardiovascular: Reports: chest pain Respiratory: Reports: no symptoms Gastrointestinal/Abdominal: Reports: abdomen distended Genitourinary: Reports: no symptoms Neurologic/Psychiatric: Reports: no symptoms Subjective 61 YO F admitted with chest pain. Cover for [facility]-Dr Albright. Objective Last Vital Signs Date Time Temp Pulse Resp B/P Pulse Ox O2 Delivery O2 Flow Rate FiO2 05/06/16 12:25 98.4 104 18 122/69 95 Room Air 05/04/16 11:32 2.0 General Appearance: WD/WN, no apparent distress, alert EENT: PERRL/EOMI, normal ENT inspection, TMs normal Neck: non-tender, normal alignment, supple Cardiovascular: normal peripheral pulses, normal rate, regular rhythm, no gallop/murmur, no JVD Respiratory/Chest: chest wall non-tender, lungs clear, normal breath sounds, no respiratory distress, no accessory muscle use Abdomen: no organomegaly, no mass, decreased bowel sounds, distended, tender Extremities: normal range of motion Skin: normal pigmentation, warm/dry Microbiology Date/Time Source Procedure Growth Status 05/05/16 16:15 Ascities Fluid Gram Stain - Final Resulted 05/05/16 16:15 Ascities Fluid Body Fluid Culture - Preliminary NO GROWTH Resulted Intake and Output 05/05/16 05/06/16 19:00 07:00 Intake Total 320 ml Output Total 2260 ml Balance -2260 ml 320 ml Intake Oral 320 ml Hemodialysis UF 2260 ml Assessment/Plan Problem List: (1) Ascites Assessment & Plan: S/P paracentesis on 05/05/16. See GI note-Dr Reyes. (2) Chest pain Assessment & Plan: See cardiology note. (3) Anemia Assessment & Plan: S/P transfusion 2 units PRBC. (4) ESRD (end stage renal disease) Assessment & Plan: Last Hemodialysis 05/05/16 per nephrol-Dr Sargent (5) CHF (congestive heart failure) (6) HTN (hypertension) Assessment & Plan: Cont lisinopril (7) Cirrhosis of liver Assessment & Plan: Will require liver transplant-See GI note. Status: not improved JAVIER ALVAREZ May 06, 2016 16:41
[2016-05-06] MEDS ORDERED: DuoNeb 0.5-3(2.5)mg/3ml neb HHN PRN (17:00)
[2016-05-06 19:11] LABS: PROTEIN, BODY FLUID 4.6 g/dL (.)
[2016-05-06 20:00] VITALS: BP 131/80
[2016-05-06] MEDS ORDERED: Lisinopril 20mg tab ORAL SCH (21:00)
[2016-05-06] MEDS: TraZODone 100mg tab ORAL SCH (21:05)
[2016-05-06] MEDS: Zolpidem 5mg tab ORAL PRN (21:18)
[2016-05-07] VITALS: BP 134/76
[2016-05-07 04:00] VITALS: BP 125/79
[2016-05-07] MEDS ORDERED: DuoNeb 0.5-3(2.5)mg/3ml neb HHN PRN (05:00)
[2016-05-07] MEDS: NovoLOG Insulin Flexpen SUBQ SCH ×4 (06:08→20:52)
[2016-05-07] MEDS: Morphine Sulfate 2mg/ml Inj IVP PRN ×3 (06:46→19:12)
[2016-05-07] MEDS ORDERED: Miralax 17gm pkt ORAL PRN (07:15)
[2016-05-07] MEDS ORDERED: Zolpidem 5mg tab ORAL PRN (07:15)
[2016-05-07 08:00] VITALS: BP 146/100
--- NOTE | 2016-05-07 08:18 | General Progress Note ---
Assessment/Plan Problem List: (1) HTN (hypertension) ICD Codes: I10 - Essential (primary) hypertension SNOMED: 24873074 (2) ESRD (end stage renal disease) ICD Codes: N18.6 - End stage renal disease SNOMED: 10431964 (3) Cirrhosis of liver ICD Codes: K74.60 - Unspecified cirrhosis of liver SNOMED: 56223096 (4) Gastritis ICD Codes: K29.70 - Gastritis, unspecified, without bleeding SNOMED: 1873712 (5) Diabetes ICD Codes: E11.9 - Type 2 diabetes mellitus without complications SNOMED: 54648694 (6) Anemia ICD Codes: D64.9 - Anemia, unspecified SNOMED: 706705017 Qualifiers: Qualified Codes: D64.9 - Anemia, unspecified (7) Hepatomegaly ICD Codes: R16.0 - Hepatomegaly, not elsewhere classified SNOMED: 68519594 Assessment/Plan fu H&H>>> stable fu stool ob still pending lactulose xifaxan prn paracenthesis fu cardiology recs needs out patient referal for liver transplant when sober over 6 months dc reglan change protonix to daily consider GI procedures if stool ob positive Subjective ROS Limited/Unobtainable: Yes Allergies: Coded Allergies: No Known Allergies (Unverified , 09/20/15) Subjective no event Objective Last 24 Hour Vital Signs Date Time Temp Pulse Resp B/P Pulse Ox O2 Delivery O2 Flow Rate FiO2 05/07/16 07:42 94 18 Room Air 05/07/16 07:22 98.1 05/07/16 04:00 97.9 102 18 125/79 97 Room Air 05/07/16 00:00 92 05/07/16 00:00 98.1 18 18 134/76 94 Room Air 05/06/16 21:54 96 18 Room Air 05/06/16 21:18 131/80 05/06/16 20:00 102 05/06/16 20:00 98.2 99 18 131/80 97 Room Air 05/06/16 16:00 98.4 104 20 117/72 94 Room Air 05/06/16 16:00 106 05/06/16 12:25 98.4 104 18 122/69 95 Room Air 05/06/16 12:00 105 05/06/16 09:42 148/79 05/06/16 09:42 99 148/79 Intake and Output 05/06/16 05/07/16 19:00 07:00 Intake Total 480 ml 440 ml Balance 480 ml 440 ml Intake Oral 480 ml 440 ml Height (Feet): 5 Height (Inches): 6.00 Weight (Pounds): 125 General Appearance: alert EENT: normal ENT inspection Neck: supple Cardiovascular: normal rate Respiratory/Chest: lungs clear Abdomen: normal bowel sounds, non tender, soft Extremities: non-tender GEOVANNY RAMIREZ May 07, 2016 08:18
[2016-05-07] MEDS ORDERED: Lisinopril 20mg tab ORAL SCH (09:00)
[2016-05-07] MEDS: Aspirin Baby 81mg ORAL SCH (09:14)
[2016-05-07] MEDS: Heparin 5000 units/ml inj SUBQ SCH ×2 (09:16→20:49)
[2016-05-07 11:12] LABS: MEAN CORPUSCULAR HGB CONC 30.7 G/DL (32.0-36.0); MEAN CORPUSCULAR VOLUME 101 FL (80-99); MEAN PLATELET VOLUME 4.7 FL (6.5-10.1); PLATELET COUNT 289 K/UL (150-450); RED BLOOD COUNT 2.43 M/UL (4.20-5.40); RED CELL DISTRIBUTION WIDTH 18.8 % (11.6-14.8); WHITE BLOOD COUNT 7.9 K/UL (4.8-10.8)
[2016-05-07 11:31] LABS: ALBUMIN/GLOBULIN RATIO 0.4 (1.0-2.7); CREATININE 5.7 mg/dL (0.5-0.9); CRP QUANT 4.4 mg/dL (< 0.5); GLOMERULAR FILTRATION RATE 9.2 mL/min (>60); MAGNESIUM 2.1 mg/dL (1.7-2.5); PHOSPHORUS 5.5 mg/dL (2.5-4.8); POTASSIUM 5.7 mEQ/L (3.4-4.9); TOTAL PROTEIN 7.1 g/dL (6.6-8.7); URIC ACID 4.7 mg/dL (3.0-7.5)
[2016-05-07 12:00] VITALS: BP 138/79
--- NOTE | 2016-05-07 12:04 | General Progress Note ---
Assessment/Plan Status: unchanged Status Narrative K 5.7 Assessment/Plan status: ESRD- HyperKalemia- resolved Ascitis- worsening severe Anemia- transfused DM HTN At Fib Plan: HD 05/05 next 05/08 Kayexelate today- change diet to Renal optimize cardiac and pulmonary status- BP meds adjustment- No labs today- 2 D Echo previous admission: Left ventricular ejection fraction estimated to be 70 %. Monitor lytes and renal parameters- Per consultants Transfused 05/03 Paracynthesis, Ascitis aspiration 05/05 Subjective ROS Limited/Unobtainable: No Constitutional: Reports: malaise Allergies: Coded Allergies: No Known Allergies (Unverified , 09/20/15) Objective Last 24 Hour Vital Signs Date Time Temp Pulse Resp B/P Pulse Ox O2 Delivery O2 Flow Rate FiO2 05/07/16 09:14 146/100 05/07/16 09:13 100 146/100 05/07/16 08:00 98.7 100 20 146/100 94 Room Air 05/07/16 07:42 94 18 Room Air 05/07/16 07:22 98.1 05/07/16 04:00 97.9 102 18 125/79 97 Room Air 05/07/16 00:00 92 05/07/16 00:00 98.1 18 18 134/76 94 Room Air 05/06/16 21:54 96 18 Room Air 05/06/16 21:18 131/80 05/06/16 20:00 102 05/06/16 20:00 98.2 99 18 131/80 97 Room Air 05/06/16 16:00 98.4 104 20 117/72 94 Room Air 05/06/16 16:00 106 05/06/16 12:25 98.4 104 18 122/69 95 Room Air Intake and Output 05/06/16 05/07/16 19:00 07:00 Intake Total 480 ml 440 ml Balance 480 ml 440 ml Intake Oral 480 ml 440 ml Laboratory Tests 05/07/16 10:45: White Blood Count 7.9, Red Blood Count 2.43L, Hemoglobin 7.5L, Hematocrit 24.6L , Mean Corpuscular Volume 101H, Mean Corpuscular Hemoglobin 31.0, Mean Corpuscular Hemoglobin Concent 30.7L, Red Cell Distribution Width 18.8H, Platelet Count 289, Mean Platelet Volume 4.7L, Neutrophils (%) (Auto) , Lymphocytes (%) (Auto) , Monocytes (%) (Auto) , Eosinophils (%) (Auto) , Basophils (%) (Auto) , Neutrophils % (Manual) [Pending], Lymphocytes % (Manual) [Pending], Platelet Estimate [Pending], Platelet Morphology [Pending], Sodium Level 136, Potassium Level 5.7H, Chloride Level 96L, Carbon Dioxide Level 27, Anion Gap 13, Blood Urea Nitrogen 31H, Creatinine 5.7H, Estimat Glomerular Filtration Rate 9.2, Glucose Level 82, Uric Acid 4.7, Calcium Level 8.0L, Phosphorus Level 5.5H, Magnesium Level 2.1, Total Bilirubin 0.5, Gamma Glutamyl Transpeptidase 35, Aspartate Amino Transf (AST/SGOT) 14, Alanine Aminotransferase (ALT/SGPT) 5, Alkaline Phosphatase 94, C-Reactive Protein, Quantitative 4.4H, Pro-B-Type Natriuretic Peptide [id number], Total Protein 7.1, Albumin 2.3L, Globulin 4.8, Albumin/Globulin Ratio 0.4L Height (Feet): 5 Height (Inches): 6.00 Weight (Pounds): 125 General Appearance: no apparent distress Cardiovascular: tachycardia Respiratory/Chest: decreased breath sounds Abdomen: soft, distended Objective other physical exam not changed PEPE MONTERROSO May 07, 2016 12:04
[2016-05-07] MEDS: Calcitriol 0.25mcg Cap ORAL SCH (12:06)
[2016-05-07 12:25] LABS: ANISOCYTOSIS 2+; BAND NEUTROPHILS % (MANUAL) 0 % (0-8); BASOPHILS % (MANUAL) 1 % (0-2); EOSINOPHILS % (MANUAL) 8 % (0-3); HYPOCHROMASIA 3+; LYMPHOCYTES % (MANUAL) 26 % (20-45); MACROCYTES 1+; NEUTROPHILS % (MANUAL) 57 % (45-75); PLATELET ESTIMATE ADEQUATE; PLATELET MORPHOLOGY NORMAL; TOTAL CELLS COUNTED 100
[2016-05-07] MEDS ORDERED: Sodium Polystyrene Sulfonate 15gm Powder ORAL ONE (12:30)
--- NOTE | 2016-05-07 13:16 | Cardiology Progress Note ---
Assessment/Plan Assessment/Plan noted worsening crestinine and elevated potassium discontinue Lisinopril add propranolol check K level tomorrow do ECG Subjective Subjective complaining on itching Objective Last 24 Hour Vital Signs Date Time Temp Pulse Resp B/P Pulse Ox O2 Delivery O2 Flow Rate FiO2 05/07/16 09:14 146/100 05/07/16 09:13 100 146/100 05/07/16 08:00 98.7 100 20 146/100 94 Room Air 05/07/16 07:42 94 18 Room Air 05/07/16 07:22 98.1 05/07/16 04:00 97.9 102 18 125/79 97 Room Air 05/07/16 00:00 92 05/07/16 00:00 98.1 18 18 134/76 94 Room Air 05/06/16 21:54 96 18 Room Air 05/06/16 21:18 131/80 05/06/16 20:00 102 05/06/16 20:00 98.2 99 18 131/80 97 Room Air 05/06/16 16:00 98.4 104 20 117/72 94 Room Air 05/06/16 16:00 106 General Appearance: thin EENT: PERRL/EOMI Neck: supple Rhythm: NSR Cardiovascular: tachycardia Respiratory/Chest: decreased breath sounds - at bases Abdomen: distended Intake and Output 05/06/16 05/07/16 19:00 07:00 Intake Total 480 ml 440 ml Balance 480 ml 440 ml Intake Oral 480 ml 440 ml Laboratory Tests Test 05/07/16 10:45 White Blood Count 7.9 K/UL (4.8-10.8) Red Blood Count 2.43 M/UL (4.20-5.40) L Hemoglobin 7.5 G/DL (12.0-16.0) L Hematocrit 24.6 % (37.0-47.0) L Mean Corpuscular Volume 101 FL (80-99) H Mean Corpuscular Hemoglobin 31.0 PG (27.0-31.0) Mean Corpuscular Hemoglobin Concent 30.7 G/DL (32.0-36.0) L Red Cell Distribution Width 18.8 % (11.6-14.8) H Platelet Count 289 K/UL (150-450) Mean Platelet Volume 4.7 FL (6.5-10.1) L Neutrophils (%) (Auto) % (45.0-75.0) Lymphocytes (%) (Auto) % (20.0-45.0) Monocytes (%) (Auto) % (1.0-10.0) Eosinophils (%) (Auto) % (0.0-3.0) Basophils (%) (Auto) % (0.0-2.0) Differential Total Cells Counted 100 Neutrophils % (Manual) 57 % (45-75) Lymphocytes % (Manual) 26 % (20-45) Monocytes % (Manual) 8 % (1-10) Eosinophils % (Manual) 8 % (0-3) H Basophils % (Manual) 1 % (0-2) Band Neutrophils 0 % (0-8) Platelet Estimate Adequate Platelet Morphology Normal Hypochromasia 3+ Anisocytosis 2+ Macrocytosis 1+ Sodium Level 136 mEQ/L (135-145) Potassium Level 5.7 mEQ/L (3.4-4.9) H Chloride Level 96 mEQ/L (98-107) L Carbon Dioxide Level 27 mEQ/L (20-30) Anion Gap 13 (5-15) Blood Urea Nitrogen 31 mg/dL (7-23) H Creatinine 5.7 mg/dL (0.5-0.9) H Estimat Glomerular Filtration Rate 9.2 mL/min (>60) Glucose Level 82 mg/dL (74-106) Uric Acid 4.7 mg/dL (3.0-7.5) Calcium Level 8.0 mg/dL (8.6-10.2) L Phosphorus Level 5.5 mg/dL (2.5-4.8) H Magnesium Level 2.1 mg/dL (1.7-2.5) Total Bilirubin 0.5 mg/dL (0.0-1.2) Gamma Glutamyl Transpeptidase 35 U/L (5-36) Aspartate Amino Transf (AST/SGOT) 14 U/L (5-40) Alanine Aminotransferase (ALT/SGPT) 5 U/L (3-33) Alkaline Phosphatase 94 U/L (35-104) C-Reactive Protein, Quantitative 4.4 mg/dL (< 0.5) H Pro-B-Type Natriuretic Peptide 35899 pg/mL (0-125) H Total Protein 7.1 g/dL (6.6-8.7) Albumin 2.3 g/dL (3.5-5.2) L Globulin 4.8 g/dL Albumin/Globulin Ratio 0.4 (1.0-2.7) L Microbiology Date/Time Source Procedure Growth Status 05/05/16 16:15 Ascities Fluid Gram Stain - Final Resulted 05/05/16 16:15 Ascities Fluid Body Fluid Culture - Preliminary NO GROWTH AFTER 48 HOURS Resulted SULY MOORE May 07, 2016 13:16
[2016-05-07] MEDS: Propranolol 10mg tab ORAL SCH ×2 (15:28→20:48)
[2016-05-07 16:00] VITALS: BP 126/78
--- NOTE | 2016-05-07 16:45 | Pulmonology Progress Note ---
Assessment/Plan Assessment/Plan ASSESSMENT ESRD, on HD elevated tumor markers HTN ascites liver cirrhosis s/p paracentesis hx of ETOH abuse hx of diastolic CHF DM anemia s/p blood transfusion gastritis PLAN OF CARE MS floor s/p paracentesis-3.3 L , ascitic fluid cx-preliminary negative O2 HHN prn BP management with CCB and SABINE continue ASA ECHO with EF 70% on previous admission cardio follows HH with trend down, check in am and transfuse 1 u PRBC with Hg if below 8 stool OB GI follows on Rifaximin and Lactulose paracentesis prn not stable for colonoscopy as per GI HD as per nephro monitor renal parameters, lytes, replace as needed DVT, GI prophylaxis case discussed and evaluated by supervising physician Subjective Allergies: Coded Allergies: No Known Allergies (Unverified , 09/20/15) Subjective denies chest pain, SOB, palpitations cardio cleared for transfer to MS floor s/p paracentesis 05/05 HH trending down Objective Last 24 Hour Vital Signs Date Time Temp Pulse Resp B/P Pulse Ox O2 Delivery O2 Flow Rate FiO2 05/07/16 15:59 97.4 05/07/16 15:28 95 138/79 05/07/16 12:00 97.4 95 20 138/79 96 Room Air 05/07/16 09:14 146/100 05/07/16 09:13 100 146/100 05/07/16 08:00 98.7 100 20 146/100 94 Room Air 05/07/16 07:42 94 18 Room Air 05/07/16 04:00 97.9 102 18 125/79 97 Room Air 05/07/16 00:00 92 05/07/16 00:00 98.1 18 18 134/76 94 Room Air 05/06/16 21:54 96 18 Room Air 05/06/16 21:18 131/80 05/06/16 20:00 102 05/06/16 20:00 98.2 99 18 131/80 97 Room Air Intake and Output 05/06/16 05/07/16 19:00 07:00 Intake Total 480 ml 440 ml Balance 480 ml 440 ml Intake Oral 480 ml 440 ml Objective General Appearance: WD/WN, no apparent distress, alert EENT: PERRL/EOMI, Neck: non-tender, normal alignment, supple Cardiovascular: normal peripheral pulses, tachy, ST on tele, regular rhythm, no gallop/murmur, no JVD Respiratory/Chest: chest wall non-tender, lungs clear, normal breath sounds, no respiratory distress, no accessory muscle use Abdomen: no organomegaly, no mass, decreased bowel sounds, distended, tender Extremities: normal range of motion Skin: normal pigmentation, warm/dry Microbiology Date/Time Source Procedure Growth Status 05/05/16 16:15 Ascities Fluid Gram Stain - Final Resulted 05/05/16 16:15 Ascities Fluid Body Fluid Culture - Preliminary NO GROWTH AFTER 48 HOURS Resulted Laboratory Tests 05/07/16 10:45: White Blood Count 7.9, Red Blood Count 2.43L, Hemoglobin 7.5L, Hematocrit 24.6L , Mean Corpuscular Volume 101H, Mean Corpuscular Hemoglobin 31.0, Mean Corpuscular Hemoglobin Concent 30.7L, Red Cell Distribution Width 18.8H, Platelet Count 289, Mean Platelet Volume 4.7L, Neutrophils (%) (Auto) , Lymphocytes (%) (Auto) , Monocytes (%) (Auto) , Eosinophils (%) (Auto) , Basophils (%) (Auto) , Differential Total Cells Counted 100, Neutrophils % ( Manual) 57, Lymphocytes % (Manual) 26, Monocytes % (Manual) 8, Eosinophils % ( Manual) 8H, Basophils % (Manual) 1, Band Neutrophils 0, Platelet Estimate Adequate, Platelet Morphology Normal, Hypochromasia 3+, Anisocytosis 2+, Macrocytosis 1+, Sodium Level 136, Potassium Level 5.7H, Chloride Level 96L, Carbon Dioxide Level 27, Anion Gap 13, Blood Urea Nitrogen 31H, Creatinine 5.7H , Estimat Glomerular Filtration Rate 9.2, Glucose Level 82, Uric Acid 4.7, Calcium Level 8.0L, Phosphorus Level 5.5H, Magnesium Level 2.1, Total Bilirubin 0.5, Gamma Glutamyl Transpeptidase 35, Aspartate Amino Transf (AST/SGOT) 14, Alanine Aminotransferase (ALT/SGPT) 5, Alkaline Phosphatase 94, C-Reactive Protein, Quantitative 4.4H, Pro-B-Type Natriuretic Peptide 62455F, Total Protein 7.1, Albumin 2.3L, Globulin 4.8, Albumin/Globulin Ratio 0.4L Current Medications Medications (Trade) Dose Ordered Sig/Ranjan Route PRN Reason Start Time Stop Time Status Last Admin Dose Admin Acetaminophen (Tylenol) 650 mg Q4H PRN ORAL fever 05/07/16 03:15 06/06/16 03:14 Albuterol/ Ipratropium (DuoNeb 0.5-3(2.5)mg/3ml) 3 ml Q6H PRN HHN dyspnea 05/07/16 05:00 05/12/16 04:59 Amlodipine Besylate (Norvasc) 10 mg DAILY ORAL 05/07/16 09:00 06/06/16 08:59 05/07/16 09:13 Aspirin (ASA) 81 mg DAILY ORAL 05/07/16 09:00 06/06/16 08:59 05/07/16 09:14 Calcitriol (Rocatrol) 0.25 mcg DAILY ORAL 05/07/16 09:00 06/06/16 08:59 05/07/16 12:06 Clonidine HCl (Catapres) 0.1 mg Q4H PRN ORAL For High Blood Pressure 05/07/16 03:15 06/06/16 03:14 Dextrose (Dextrose 50%) STAT PRN IV Hypoglycemia 05/07/16 07:15 06/06/16 07:14 Diphenhydramine HCl (Benadryl) 25 mg Q6H PRN ORAL Itching 05/07/16 07:15 06/06/16 07:14 Ergocalciferol (Drisdol) 50,000 intlu QWEEK ORAL 05/11/16 16:00 06/10/16 15:59 Heparin Sodium (Porcine) (Heparin 5000 units/ml) 5,000 units EVERY 12 HOURS SUBQ 05/07/16 09:00 06/06/16 08:59 05/07/16 09:16 Insulin Aspart (NovoLOG) BEFORE MEALS AND HS SUBQ 05/07/16 06:30 06/06/16 06:29 Morphine Sulfate (Morphine Sulfate) 1 mg Q4H PRN IVP For Pain 05/07/16 03:15 05/14/16 03:14 05/07/16 15:29 Ondansetron HCl (Zofran) 4 mg Q6H PRN IVP Nausea & Vomiting 05/07/16 07:15 06/06/16 07:14 Pantoprazole (Protonix) 40 mg DAILY ORAL 05/07/16 09:00 06/06/16 08:59 05/07/16 09:14 Polyethylene Glycol (Miralax) 17 gm HSPRN PRN ORAL Constipation 05/07/16 07:15 06/06/16 07:14 Propranolol HCl (Inderal) 40 mg Q8HR ORAL 05/07/16 14:00 06/06/16 13:59 05/07/16 15:28 Trazodone HCl (Desyrel) 100 mg BEDTIME ORAL 05/07/16 21:00 06/06/16 20:59 Zolpidem Tartrate (Ambien) 5 mg HSPRN PRN ORAL Insomnia 05/07/16 07:15 06/06/16 07:14 [place] ([facility])Patti NP May 07, 2016 16:45
--- NOTE | 2016-05-07 17:25 | Internal Med Progress Note ---
Subjective Date of Service: May 07, 2016 Physician Name HuertaJavier mcmillan Attending Physician Jackson Albright MD Current Medications Medications (Trade) Dose Ordered Sig/Ranjan Route PRN Reason Start Time Stop Time Status Last Admin Dose Admin Acetaminophen (Tylenol) 650 mg Q4H PRN ORAL fever 05/07/16 03:15 06/06/16 03:14 Albuterol/ Ipratropium (DuoNeb 0.5-3(2.5)mg/3ml) 3 ml Q6H PRN HHN dyspnea 05/07/16 05:00 05/12/16 04:59 Amlodipine Besylate (Norvasc) 10 mg DAILY ORAL 05/07/16 09:00 06/06/16 08:59 05/07/16 09:13 Aspirin (ASA) 81 mg DAILY ORAL 05/07/16 09:00 06/06/16 08:59 05/07/16 09:14 Calcitriol (Rocatrol) 0.25 mcg DAILY ORAL 05/07/16 09:00 06/06/16 08:59 05/07/16 12:06 Clonidine HCl (Catapres) 0.1 mg Q4H PRN ORAL For High Blood Pressure 05/07/16 03:15 06/06/16 03:14 Dextrose (Dextrose 50%) STAT PRN IV Hypoglycemia 05/07/16 07:15 06/06/16 07:14 Diphenhydramine HCl (Benadryl) 25 mg Q6H PRN ORAL Itching 05/07/16 07:15 06/06/16 07:14 Ergocalciferol (Drisdol) 50,000 intlu QWEEK ORAL 05/11/16 16:00 06/10/16 15:59 Heparin Sodium (Porcine) (Heparin 5000 units/ml) 5,000 units EVERY 12 HOURS SUBQ 05/07/16 09:00 06/06/16 08:59 05/07/16 09:16 Insulin Aspart (NovoLOG) BEFORE MEALS AND HS SUBQ 05/07/16 06:30 06/06/16 06:29 Morphine Sulfate (Morphine Sulfate) 1 mg Q4H PRN IVP For Pain 05/07/16 03:15 05/14/16 03:14 05/07/16 15:29 Ondansetron HCl (Zofran) 4 mg Q6H PRN IVP Nausea & Vomiting 05/07/16 07:15 06/06/16 07:14 Pantoprazole (Protonix) 40 mg DAILY ORAL 05/07/16 09:00 06/06/16 08:59 05/07/16 09:14 Polyethylene Glycol (Miralax) 17 gm HSPRN PRN ORAL Constipation 05/07/16 07:15 06/06/16 07:14 Propranolol HCl (Inderal) 40 mg Q8HR ORAL 05/07/16 14:00 06/06/16 13:59 05/07/16 15:28 Trazodone HCl (Desyrel) 100 mg BEDTIME ORAL 05/07/16 21:00 06/06/16 20:59 Zolpidem Tartrate (Ambien) 5 mg HSPRN PRN ORAL Insomnia 05/07/16 07:15 06/06/16 07:14 Allergies: Coded Allergies: No Known Allergies (Unverified , 09/20/15) ROS Limited/Unobtainable: No Constitutional: Reports: no symptoms HEENT: Reports: no symptoms Cardiovascular: Reports: chest pain Respiratory: Reports: no symptoms Gastrointestinal/Abdominal: Reports: abdomen distended, abdominal pain Genitourinary: Reports: no symptoms Neurologic/Psychiatric: Reports: no symptoms Subjective 61 YO F admitted with chest pain. Cover for [facility]sa-Dr Albright. Objective Last Vital Signs Date Time Temp Pulse Resp B/P Pulse Ox O2 Delivery O2 Flow Rate FiO2 05/07/16 15:59 97.4 05/07/16 15:28 95 138/79 05/07/16 12:00 20 96 Room Air 05/04/16 11:32 2.0 Laboratory Tests Test 05/07/16 10:45 White Blood Count 7.9 K/UL (4.8-10.8) Red Blood Count 2.43 M/UL (4.20-5.40) L Hemoglobin 7.5 G/DL (12.0-16.0) L Hematocrit 24.6 % (37.0-47.0) L Mean Corpuscular Volume 101 FL (80-99) H Mean Corpuscular Hemoglobin 31.0 PG (27.0-31.0) Mean Corpuscular Hemoglobin Concent 30.7 G/DL (32.0-36.0) L Red Cell Distribution Width 18.8 % (11.6-14.8) H Platelet Count 289 K/UL (150-450) Mean Platelet Volume 4.7 FL (6.5-10.1) L Neutrophils (%) (Auto) % (45.0-75.0) Lymphocytes (%) (Auto) % (20.0-45.0) Monocytes (%) (Auto) % (1.0-10.0) Eosinophils (%) (Auto) % (0.0-3.0) Basophils (%) (Auto) % (0.0-2.0) Differential Total Cells Counted 100 Neutrophils % (Manual) 57 % (45-75) Lymphocytes % (Manual) 26 % (20-45) Monocytes % (Manual) 8 % (1-10) Eosinophils % (Manual) 8 % (0-3) H Basophils % (Manual) 1 % (0-2) Band Neutrophils 0 % (0-8) Platelet Estimate Adequate Platelet Morphology Normal Hypochromasia 3+ Anisocytosis 2+ Macrocytosis 1+ Sodium Level 136 mEQ/L (135-145) Potassium Level 5.7 mEQ/L (3.4-4.9) H Chloride Level 96 mEQ/L (98-107) L Carbon Dioxide Level 27 mEQ/L (20-30) Anion Gap 13 (5-15) Blood Urea Nitrogen 31 mg/dL (7-23) H Creatinine 5.7 mg/dL (0.5-0.9) H Estimat Glomerular Filtration Rate 9.2 mL/min (>60) Glucose Level 82 mg/dL (74-106) Uric Acid 4.7 mg/dL (3.0-7.5) Calcium Level 8.0 mg/dL (8.6-10.2) L Phosphorus Level 5.5 mg/dL (2.5-4.8) H Magnesium Level 2.1 mg/dL (1.7-2.5) Total Bilirubin 0.5 mg/dL (0.0-1.2) Gamma Glutamyl Transpeptidase 35 U/L (5-36) Aspartate Amino Transf (AST/SGOT) 14 U/L (5-40) Alanine Aminotransferase (ALT/SGPT) 5 U/L (3-33) Alkaline Phosphatase 94 U/L (35-104) C-Reactive Protein, Quantitative 4.4 mg/dL (< 0.5) H Pro-B-Type Natriuretic Peptide 59916 pg/mL (0-125) H Total Protein 7.1 g/dL (6.6-8.7) Albumin 2.3 g/dL (3.5-5.2) L Globulin 4.8 g/dL Albumin/Globulin Ratio 0.4 (1.0-2.7) L Microbiology Date/Time Source Procedure Growth Status 05/05/16 16:15 Ascities Fluid Gram Stain - Final Resulted 05/05/16 16:15 Ascities Fluid Body Fluid Culture - Preliminary NO GROWTH AFTER 48 HOURS Resulted Intake and Output 05/06/16 05/07/16 19:00 07:00 Intake Total 480 ml 440 ml Balance 480 ml 440 ml Intake Oral 480 ml 440 ml Objective General Appearance: WD/WN, no apparent distress, alert EENT: PERRL/EOMI, normal ENT inspection, TMs normal Neck: non-tender, normal alignment, supple Cardiovascular: normal peripheral pulses, normal rate, regular rhythm, no gallop/murmur, no JVD Respiratory/Chest: chest wall non-tender, lungs clear, normal breath sounds, no respiratory distress, no accessory muscle use Abdomen: no organomegaly, no mass, decreased bowel sounds, distended, tender Extremities: normal range of motion Skin: normal pigmentation, warm/dry Assessment/Plan Problem List: (1) Ascites Assessment & Plan: S/P paracentesis on 05/05/16. See GI note-Dr Reyes. (2) Chest pain Assessment & Plan: See cardiology note. (3) Anemia Assessment & Plan: S/P transfusion 2 units PRBC. (4) ESRD (end stage renal disease) Assessment & Plan: Last Hemodialysis 05/05/16 per nephrol-Dr Sargent (5) CHF (congestive heart failure) (6) HTN (hypertension) Assessment & Plan: Cont lisinopril (7) Cirrhosis of liver Assessment & Plan: Will require liver transplant-See GI note. Assessment/Plan Discharge planning: [facility] facJAVIER PLATA May 07, 2016 17:25
[2016-05-07 20:00] VITALS: BP 128/81
[2016-05-07] MEDS ORDERED: TraZODone 100mg tab ORAL SCH (21:00)
[2016-05-08] VITALS: BP 133/75
[2016-05-08 04:00] VITALS: BP 152/93
[2016-05-08] MEDS: NovoLOG Insulin Flexpen SUBQ SCH ×3 (06:00→16:30)
[2016-05-08] MEDS: Propranolol 10mg tab ORAL SCH ×2 (06:00→13:42)
[2016-05-08] MEDS: Morphine Sulfate 2mg/ml Inj IVP PRN ×2 (06:19→10:21)
[2016-05-08 08:00] VITALS: BP 143/83
[2016-05-08 08:07] LABS: MEAN CORPUSCULAR HEMOGLOBIN 31.7 PG (27.0-31.0); MEAN CORPUSCULAR HGB CONC 31.5 G/DL (32.0-36.0); MEAN CORPUSCULAR VOLUME 101 FL (80-99); MEAN PLATELET VOLUME 5.1 FL (6.5-10.1); PLATELET COUNT 289 K/UL (150-450); RED CELL DISTRIBUTION WIDTH 18.7 % (11.6-14.8); WHITE BLOOD COUNT 7.8 K/UL (4.8-10.8)
[2016-05-08 08:51] LABS: CREATININE 6.6 mg/dL (0.5-0.9); GLOMERULAR FILTRATION RATE 7.8 mL/min (>60)
[2016-05-08 08:56] LABS: POTASSIUM 5.9 mEQ/L (3.4-4.9)
[2016-05-08] MEDS: Aspirin Baby 81mg ORAL SCH (09:18)
[2016-05-08] MEDS: Calcitriol 0.25mcg Cap ORAL SCH (09:18)
[2016-05-08] MEDS: Heparin 5000 units/ml inj SUBQ SCH (09:19)
--- NOTE | 2016-05-08 09:38 | General Progress Note ---
Assessment/Plan Problem List: (1) HTN (hypertension) ICD Codes: I10 - Essential (primary) hypertension SNOMED: 85977424 (2) ESRD (end stage renal disease) ICD Codes: N18.6 - End stage renal disease SNOMED: 56203872 (3) Cirrhosis of liver ICD Codes: K74.60 - Unspecified cirrhosis of liver SNOMED: 31718452 (4) Gastritis ICD Codes: K29.70 - Gastritis, unspecified, without bleeding SNOMED: 2033845 (5) Diabetes ICD Codes: E11.9 - Type 2 diabetes mellitus without complications SNOMED: 92206761 (6) Anemia ICD Codes: D64.9 - Anemia, unspecified SNOMED: 391352579 Qualifiers: Qualified Codes: D64.9 - Anemia, unspecified (7) Hepatomegaly ICD Codes: R16.0 - Hepatomegaly, not elsewhere classified SNOMED: 38101380 Assessment/Plan fu H&H>>> stable fu stool ob still pending lactulose xifaxan prn paracenthesis fu cardiology recs needs out patient referal for liver transplant when sober over 6 months protonix daily consider GI procedures if stool ob positive repeat pt/ptt Subjective ROS Limited/Unobtainable: Yes Allergies: Coded Allergies: No Known Allergies (Unverified , 09/20/15) Subjective no event Objective Last 24 Hour Vital Signs Date Time Temp Pulse Resp B/P Pulse Ox O2 Delivery O2 Flow Rate FiO2 05/08/16 08:00 97.5 85 18 143/83 97 Room Air 05/08/16 06:49 97.3 05/08/16 06:00 88 152/93 05/08/16 04:00 97.3 88 18 152/93 93 Room Air 05/08/16 00:00 97.7 84 18 133/75 93 Room Air 05/07/16 20:48 83 126/78 05/07/16 20:00 97.9 84 19 128/81 92 Room Air 05/07/16 19:00 83 16 Room Air 05/07/16 16:00 97.7 83 20 126/78 96 Room Air 05/07/16 15:28 95 138/79 05/07/16 12:00 97.4 95 20 138/79 96 Room Air Intake and Output 05/07/16 05/08/16 19:00 07:00 Intake Total 720 ml 595 ml Balance 720 ml 595 ml Intake Oral 720 ml 595 ml # Voids 1 # Bowel Movements 1 1 Laboratory Tests 05/07/16 10:45: White Blood Count 7.9, Red Blood Count 2.43L, Hemoglobin 7.5L, Hematocrit 24.6L , Mean Corpuscular Volume 101H, Mean Corpuscular Hemoglobin 31.0, Mean Corpuscular Hemoglobin Concent 30.7L, Red Cell Distribution Width 18.8H, Platelet Count 289, Mean Platelet Volume 4.7L, Neutrophils (%) (Auto) , Lymphocytes (%) (Auto) , Monocytes (%) (Auto) , Eosinophils (%) (Auto) , Basophils (%) (Auto) , Differential Total Cells Counted 100, Neutrophils % ( Manual) 57, Lymphocytes % (Manual) 26, Monocytes % (Manual) 8, Eosinophils % ( Manual) 8H, Basophils % (Manual) 1, Band Neutrophils 0, Platelet Estimate Adequate, Platelet Morphology Normal, Hypochromasia 3+, Anisocytosis 2+, Macrocytosis 1+, Sodium Level 136, Potassium Level 5.7H, Chloride Level 96L, Carbon Dioxide Level 27, Anion Gap 13, Blood Urea Nitrogen 31H, Creatinine 5.7H , Estimat Glomerular Filtration Rate 9.2, Glucose Level 82, Uric Acid 4.7, Calcium Level 8.0L, Phosphorus Level 5.5H, Magnesium Level 2.1, Total Bilirubin 0.5, Gamma Glutamyl Transpeptidase 35, Aspartate Amino Transf (AST/SGOT) 14, Alanine Aminotransferase (ALT/SGPT) 5, Alkaline Phosphatase 94, C-Reactive Protein, Quantitative 4.4H, Pro-B-Type Natriuretic Peptide 63279J, Total Protein 7.1, Albumin 2.3L, Globulin 4.8, Albumin/Globulin Ratio 0.4L 05/07/16 18:30: Stool Occult Blood [Pending] 05/08/16 07:30: White Blood Count 7.8, Red Blood Count 2.40L, Hemoglobin 7.6L, Hematocrit 24.1L , Mean Corpuscular Volume 101H, Mean Corpuscular Hemoglobin 31.7H, Mean Corpuscular Hemoglobin Concent 31.5L, Red Cell Distribution Width 18.7H, Platelet Count 289, Mean Platelet Volume 5.1L, Neutrophils (%) (Auto) , Lymphocytes (%) (Auto) , Monocytes (%) (Auto) , Eosinophils (%) (Auto) , Basophils (%) (Auto) , Neutrophils % (Manual) [Pending], Lymphocytes % (Manual) [Pending], Platelet Estimate [Pending], Platelet Morphology [Pending], Sodium Level 139, Potassium Level 5.9H, Chloride Level 94L, Carbon Dioxide Level 29, Anion Gap 16H, Blood Urea Nitrogen 44H, Creatinine 6.6H, Estimat Glomerular Filtration Rate 7.8, Glucose Level 91, Calcium Level 8.0L Height (Feet): 5 Height (Inches): 6.00 Weight (Pounds): 130 General Appearance: alert EENT: normal ENT inspection Neck: supple Cardiovascular: normal rate Respiratory/Chest: decreased breath sounds Abdomen: normal bowel sounds, non tender, soft Extremities: non-tender GEOVANNY RAMIREZ May 08, 2016 09:38
[2016-05-08 10:40] LABS: ANISOCYTOSIS 1+; BAND NEUTROPHILS % (MANUAL) 0 % (0-8); BASOPHILS % (MANUAL) 0 % (0-2); EOSINOPHILS % (MANUAL) 7 % (0-3); LYMPHOCYTES % (MANUAL) 20 % (20-45); MACROCYTES 1+; NEUTROPHILS % (MANUAL) 66 % (45-75); PLATELET ESTIMATE ADEQUATE; PLATELET MORPHOLOGY NORMAL; TOTAL CELLS COUNTED 100
[2016-05-08 12:00] VITALS: BP 150/88
--- NOTE | 2016-05-08 13:59 | General Progress Note ---
Assessment/Plan Status: stable Assessment/Plan status: ESRD- HyperKalemia- resolved Ascitis- worsening severe Anemia- transfused DM HTN At Fib Plan: HD 05/08 in process change diet to Renal optimize cardiac and pulmonary status- BP meds adjustment- No labs today- 2 D Echo previous admission: Left ventricular ejection fraction estimated to be 70 %. Monitor lytes and renal parameters- Per consultants Transfused 05/03 Paracynthesis, Ascitis aspiration 05/05 Subjective ROS Limited/Unobtainable: No Constitutional: Reports: malaise Allergies: Coded Allergies: No Known Allergies (Unverified , 09/20/15) Objective Last 24 Hour Vital Signs Date Time Temp Pulse Resp B/P Pulse Ox O2 Delivery O2 Flow Rate FiO2 05/08/16 12:00 97.2 87 18 150/88 97 Room Air 05/08/16 08:00 97.5 85 18 143/83 97 Room Air 05/08/16 07:58 83 18 Room Air 05/08/16 06:49 97.3 05/08/16 06:00 88 152/93 05/08/16 04:00 97.3 88 18 152/93 93 Room Air 05/08/16 00:00 97.7 84 18 133/75 93 Room Air 05/07/16 20:48 83 126/78 05/07/16 20:00 97.9 84 19 128/81 92 Room Air 05/07/16 19:00 83 16 Room Air 05/07/16 16:00 97.7 83 20 126/78 96 Room Air 05/07/16 15:28 95 138/79 Intake and Output 05/07/16 05/08/16 19:00 07:00 Intake Total 720 ml 595 ml Balance 720 ml 595 ml Intake Oral 720 ml 595 ml # Voids 1 # Bowel Movements 1 1 Laboratory Tests 05/07/16 18:30: Stool Occult Blood Negative 05/08/16 07:30: White Blood Count 7.8, Red Blood Count 2.40L, Hemoglobin 7.6L, Hematocrit 24.1L , Mean Corpuscular Volume 101H, Mean Corpuscular Hemoglobin 31.7H, Mean Corpuscular Hemoglobin Concent 31.5L, Red Cell Distribution Width 18.7H, Platelet Count 289, Mean Platelet Volume 5.1L, Neutrophils (%) (Auto) , Lymphocytes (%) (Auto) , Monocytes (%) (Auto) , Eosinophils (%) (Auto) , Basophils (%) (Auto) , Differential Total Cells Counted 100, Neutrophils % ( Manual) 66, Lymphocytes % (Manual) 20, Monocytes % (Manual) 7, Eosinophils % ( Manual) 7H, Basophils % (Manual) 0, Band Neutrophils 0, Platelet Estimate Adequate, Platelet Morphology Normal, Anisocytosis 1+, Macrocytosis 1+, Sodium Level 139, Potassium Level 5.9H, Chloride Level 94L, Carbon Dioxide Level 29, Anion Gap 16H, Blood Urea Nitrogen 44H, Creatinine 6.6H, Estimat Glomerular Filtration Rate 7.8, Glucose Level 91, Calcium Level 8.0L Height (Feet): 5 Height (Inches): 6.00 Weight (Pounds): 130 General Appearance: no apparent distress, lethargic Cardiovascular: tachycardia Respiratory/Chest: decreased breath sounds Abdomen: distended, other - ascitis Objective other physical exam not changed PEPE MONTERROSO May 08, 2016 13:59
[2016-05-08 16:00] VITALS: BP 158/82
--- NOTE | 2016-05-08 19:14 | Internal Med Progress Note ---
Subjective Date of Service: May 08, 2016 Physician Name Javier Alvarez Attending Physician Jackson Albright MD Current Medications Medications (Trade) Dose Ordered Sig/Ranjan Route PRN Reason Start Time Stop Time Status Last Admin Dose Admin Acetaminophen (Tylenol) 650 mg Q4H PRN ORAL fever 05/07/16 03:15 06/06/16 03:14 Albuterol/ Ipratropium (DuoNeb 0.5-3(2.5)mg/3ml) 3 ml Q6H PRN HHN dyspnea 05/07/16 05:00 05/12/16 04:59 Amlodipine Besylate (Norvasc) 10 mg DAILY ORAL 05/07/16 09:00 06/06/16 08:59 05/07/16 09:13 Aspirin (ASA) 81 mg DAILY ORAL 05/07/16 09:00 06/06/16 08:59 05/08/16 09:18 Calcitriol (Rocatrol) 0.25 mcg DAILY ORAL 05/07/16 09:00 06/06/16 08:59 05/08/16 09:18 Clonidine HCl (Catapres) 0.1 mg Q4H PRN ORAL For High Blood Pressure 05/07/16 03:15 06/06/16 03:14 05/08/16 15:58 Dextrose (Dextrose 50%) STAT PRN IV Hypoglycemia 05/07/16 07:15 06/06/16 07:14 Diphenhydramine HCl (Benadryl) 25 mg Q6H PRN ORAL Itching 05/07/16 07:15 06/06/16 07:14 05/08/16 10:20 Ergocalciferol (Drisdol) 50,000 intlu QWEEK ORAL 05/11/16 16:00 06/10/16 15:59 Heparin Sodium (Porcine) (Heparin 5000 units/ml) 5,000 units EVERY 12 HOURS SUBQ 05/07/16 09:00 06/06/16 08:59 05/08/16 09:19 Insulin Aspart (NovoLOG) BEFORE MEALS AND HS SUBQ 05/07/16 06:30 06/06/16 06:29 Morphine Sulfate (Morphine Sulfate) 1 mg Q4H PRN IVP For Pain 05/07/16 03:15 05/14/16 03:14 05/08/16 10:21 Ondansetron HCl (Zofran) 4 mg Q6H PRN IVP Nausea & Vomiting 05/07/16 07:15 06/06/16 07:14 Pantoprazole (Protonix) 40 mg DAILY ORAL 05/07/16 09:00 06/06/16 08:59 05/08/16 09:18 Polyethylene Glycol (Miralax) 17 gm HSPRN PRN ORAL Constipation 05/07/16 07:15 06/06/16 07:14 Propranolol HCl (Inderal) 40 mg Q8HR ORAL 05/07/16 14:00 06/06/16 13:59 05/07/16 20:48 Trazodone HCl (Desyrel) 100 mg BEDTIME ORAL 05/07/16 21:00 06/06/16 20:59 05/07/16 20:48 Zolpidem Tartrate (Ambien) 5 mg HSPRN PRN ORAL Insomnia 05/07/16 07:15 06/06/16 07:14 05/07/16 20:48 Allergies: Coded Allergies: No Known Allergies (Unverified , 09/20/15) ROS Limited/Unobtainable: No Constitutional: Reports: no symptoms HEENT: Reports: no symptoms Respiratory: Reports: no symptoms Gastrointestinal/Abdominal: Reports: no symptoms Genitourinary: Reports: no symptoms Neurologic/Psychiatric: Reports: no symptoms Subjective 61 YO F admitted with chest pain. Cover for Int [facility]-Dr Albright. Await transfer to [facility]. Objective Last Vital Signs Date Time Temp Pulse Resp B/P Pulse Ox O2 Delivery O2 Flow Rate FiO2 05/08/16 16:02 Room Air 2.0 05/08/16 16:00 97.3 89 22 158/82 94 Laboratory Tests Test 05/08/16 07:30 White Blood Count 7.8 K/UL (4.8-10.8) Red Blood Count 2.40 M/UL (4.20-5.40) L Hemoglobin 7.6 G/DL (12.0-16.0) L Hematocrit 24.1 % (37.0-47.0) L Mean Corpuscular Volume 101 FL (80-99) H Mean Corpuscular Hemoglobin 31.7 PG (27.0-31.0) H Mean Corpuscular Hemoglobin Concent 31.5 G/DL (32.0-36.0) L Red Cell Distribution Width 18.7 % (11.6-14.8) H Platelet Count 289 K/UL (150-450) Mean Platelet Volume 5.1 FL (6.5-10.1) L Neutrophils (%) (Auto) % (45.0-75.0) Lymphocytes (%) (Auto) % (20.0-45.0) Monocytes (%) (Auto) % (1.0-10.0) Eosinophils (%) (Auto) % (0.0-3.0) Basophils (%) (Auto) % (0.0-2.0) Differential Total Cells Counted 100 Neutrophils % (Manual) 66 % (45-75) Lymphocytes % (Manual) 20 % (20-45) Monocytes % (Manual) 7 % (1-10) Eosinophils % (Manual) 7 % (0-3) H Basophils % (Manual) 0 % (0-2) Band Neutrophils 0 % (0-8) Platelet Estimate Adequate Platelet Morphology Normal Anisocytosis 1+ Macrocytosis 1+ Sodium Level 139 mEQ/L (135-145) Potassium Level 5.9 mEQ/L (3.4-4.9) H Chloride Level 94 mEQ/L (98-107) L Carbon Dioxide Level 29 mEQ/L (20-30) Anion Gap 16 (5-15) H Blood Urea Nitrogen 44 mg/dL (7-23) H Creatinine 6.6 mg/dL (0.5-0.9) H Estimat Glomerular Filtration Rate 7.8 mL/min (>60) Glucose Level 91 mg/dL (74-106) Calcium Level 8.0 mg/dL (8.6-10.2) L Intake and Output 05/07/16 05/08/16 19:00 07:00 Intake Total 720 ml 595 ml Balance 720 ml 595 ml Intake Oral 720 ml 595 ml # Voids 1 # Bowel Movements 1 1 Objective General Appearance: WD/WN, no apparent distress, alert EENT: PERRL/EOMI, normal ENT inspection, TMs normal Neck: non-tender, normal alignment, supple Cardiovascular: normal peripheral pulses, normal rate, regular rhythm, no gallop/murmur, no JVD Respiratory/Chest: chest wall non-tender, lungs clear, normal breath sounds, no respiratory distress, no accessory muscle use Abdomen: no organomegaly, no mass, decreased bowel sounds, distended, tender Extremities: normal range of motion Skin: normal pigmentation, warm/dry Assessment/Plan Problem List: (1) Ascites Assessment & Plan: S/P paracentesis on 05/05/16. See GI note-Dr Reyes. (2) Chest pain Assessment & Plan: See cardiology note. (3) Anemia Assessment & Plan: S/P transfusion 2 units PRBC. (4) ESRD (end stage renal disease) Assessment & Plan: Last Hemodialysis 05/05/16 per nephrol-Dr Sargent (5) CHF (congestive heart failure) (6) HTN (hypertension) Assessment & Plan: Cont lisinopril (7) Cirrhosis of liver Assessment & Plan: Will require liver transplant-See GI note. Assessment/Plan Discharge planning: D/C [facility]. JAVIER ALVAREZ May 08, 2016 19:14
[2016-05-08] MEDS ORDERED: TYLENOL EXTRA500 MG ORAL (19:48)
[2016-05-08] MEDS ORDERED: ASPIRIN EC81 MG ORAL (19:49)
[2016-05-08] MEDS ORDERED: CATAPRES0.1 MG ORAL (19:50)
[2016-05-08] MEDS ORDERED: VITAMIN D250000 UNI1 ORAL (19:51)
[2016-05-08] MEDS ORDERED: IPRATROPIU0.2 MG/1 M HHN (19:52)
[2016-05-08] MEDS ORDERED: HEPARIN SO5000 UNIT2 SUBQ (19:52)
[2016-05-08] MEDS ORDERED: PCA MORPHINE1 MG/ML IVP (19:53)
[2016-05-08] MEDS ORDERED: ZOFRAN 4 MG4 MG/2 ML IVP (19:54)
[2016-05-08] MEDS ORDERED: PANTOPRAZOLE SO40 MG ORAL (19:54)
[2016-05-08] MEDS ORDERED: MIRALAX17 G2 ORAL (19:55)
[2016-05-08] MEDS ORDERED: PROPRANOLOL HCL40 MG ORAL (19:56)
[2016-05-08] MEDS ORDERED: ZOLPIDEM TARTRAT5 MG ORAL (19:56)
[2016-05-08 20:00] VITALS: BP 152/82
--- NOTE | 2016-05-08 23:30 | Pulmonology Progress Note ---
Assessment/Plan Problems: (1) ACS (acute coronary syndrome) (2) Anemia (3) HTN (hypertension) (4) H/O ETOH abuse (5) Diabetes (6) ESRD (end stage renal disease) (7) Cirrhosis of liver Assessment/Plan paracentesis cardiology f/u respiratory treatment titrate fio2 to sat of 92% monitor bp Subjective ROS Limited/Unobtainable: No Constitutional: Reports: anorexia, fatigue Neurologic: Reports: confusion, weakness Allergies: Coded Allergies: No Known Allergies (Unverified , 09/20/15) Objective Last 24 Hour Vital Signs Date Time Temp Pulse Resp B/P Pulse Ox O2 Delivery O2 Flow Rate FiO2 05/08/16 20:00 97.7 85 22 152/82 94 Room Air 05/08/16 16:02 Room Air 2.0 05/08/16 16:00 97.3 89 22 158/82 94 Room Air 05/08/16 15:58 168/95 05/08/16 12:15 Room Air 2.0 05/08/16 12:00 97.2 87 18 150/88 97 Room Air 05/08/16 08:00 97.5 85 18 143/83 97 Room Air 05/08/16 07:58 83 18 Room Air 05/08/16 06:49 97.3 05/08/16 06:00 88 152/93 05/08/16 04:00 97.3 88 18 152/93 93 Room Air 05/08/16 00:00 97.7 84 18 133/75 93 Room Air Intake and Output 05/07/16 05/08/16 19:00 07:00 Intake Total 720 ml 595 ml Balance 720 ml 595 ml Intake Oral 720 ml 595 ml # Voids 1 # Bowel Movements 1 1 General Appearance: no acute distress HEENT: normocephalic, atraumatic, PERRL Respiratory/Chest: chest wall non-tender, decreased breath sounds, accessory muscle use Breasts: no masses Cardiovascular: normal peripheral pulses, normal rate, regular rhythm, no JVD Abdomen: hyperactive bowel sounds, distended, guarding, tender, rebound tenderness Genitourinary: normal external genitalia Extremities: no cyanosis Skin: no rash, no lesions Neurologic/Psychiatric: 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 maker 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 grossly normal, responsive, disoriented Laboratory Tests 05/08/16 07:30: White Blood Count 7.8, Red Blood Count 2.40L, Hemoglobin 7.6L, Hematocrit 24.1L , Mean Corpuscular Volume 101H, Mean Corpuscular Hemoglobin 31.7H, Mean Corpuscular Hemoglobin Concent 31.5L, Red Cell Distribution Width 18.7H, Platelet Count 289, Mean Platelet Volume 5.1L, Neutrophils (%) (Auto) , Lymphocytes (%) (Auto) , Monocytes (%) (Auto) , Eosinophils (%) (Auto) , Basophils (%) (Auto) , Differential Total Cells Counted 100, Neutrophils % ( Manual) 66, Lymphocytes % (Manual) 20, Monocytes % (Manual) 7, Eosinophils % ( Manual) 7H, Basophils % (Manual) 0, Band Neutrophils 0, Platelet Estimate Adequate, Platelet Morphology Normal, Anisocytosis 1+, Macrocytosis 1+, Sodium Level 139, Potassium Level 5.9H, Chloride Level 94L, Carbon Dioxide Level 29, Anion Gap 16H, Blood Urea Nitrogen 44H, Creatinine 6.6H, Estimat Glomerular Filtration Rate 7.8, Glucose Level 91, Calcium Level 8.0L ANN MARIE OSULLIVAN May 08, 2016 23:30
--- NOTE | 2016-05-09 13:02 | Discharge Summary ---
Discharge Summary Hospital Course Date of Admission May 03, 2016 at 03:22 Date of Discharge May 08, 2016 at 20:50 Admitting Diagnosis ACS HPI Isabelle Kay is a 61 year old female who was admitted on May 03, 2016 at 03 :22 for Acute Coronary Syndrome Hospital Course dc summary #[id number] Discharge Medications Continued Medications: Acetaminophen* (Tylenol Extra Strength*) 500 Mg Tablet 650 MG ORAL Q4HR PRN for fever, TAB 0 Refills Amlodipine Besylate* (Amlodipine Besylate*) 10 Mg Tablet 10 MG ORAL DAILY, TAB Aspirin Ec* (Aspirin Ec*) 81 Mg Tablet.dr 81 MG ORAL DAILY, TAB Calcitriol (Rocaltrol) 0.25 Mcg Capsule 0.25 MCG PO DAILY, CAP Clonidine Hcl* (Catapres*) 0.1 Mg Tablet 0.1 MG ORAL EVERY 4 HOURS PRN for For High Blood Pressure, TAB Dextrose 50 % in Water (Dextrose 50%-Water Syringe) 50 Ml Syringe 50 ML IV PRN for Hypoglycemia, EA Diphenhydramine Hcl* (Benadryl*) 25 Mg Capsule 25 MG ORAL Q6H PRN for Itching, CAP Ergocalciferol (Vitamin D2)* (Vitamin D*) 50,000 Unit Capsule 39045 UNIT ORAL ONCE A WEEK, CAP Heparin Sod (Porcine) (Heparin Sodium*) 5 000/1 Ml Vial 5000 UNITS SUBQ EVERY 12 HOURS, VIAL Insulin Aspart* (Novolog*) 100 Unit/1 Ml Insuln.pen 0 SUBQ, #1 EA 0 Refills Ipratropium [place] 0.5MG/2.5ML (Ipratropium [place] 0.5MG/2.5ML) 0.2 Mg/1 Ml Solution 3 ML HHN Q4HR PRN for Shortness of Breath, #28 EA Morphine Sulfate (Morphine Sulfate 1 mg/ml Vial) 30 Mg/30 Ml Manufacturing Plant Controller.vial 1 MG IVP Q4HR PRN for For Pain, SYR Ondansetron* (Zofran*) 4 Mg/2 Ml Vial 4 MG IVP Q6H PRN for Nausea & Vomiting, VIAL Pantoprazole* (Pantoprazole*) 40 Mg Tablet.dr 40 MG ORAL DAILY, TAB Polyethylene Glycol 3350* (Miralax*) 17 Gm Powd.pack 17 GM ORAL DAILY PRN for Constipation, PACKET Propranolol Hcl* (Inderal*) 40 Mg Tablet 40 MG ORAL Q8HR, #90 TAB 0 Refills Trazodone Hcl* (Desyrel*) 100 Mg Tablet 100 MG ORAL BEDTIME, TAB Zolpidem Tartrate* (Zolpidem Tartrate*) 5 Mg Tablet 5 MG ORAL BEDTIME PRN for Insomnia, TAB 0 Refills Discharge Condition Upon Discharge: stable Discharge Disposition Patient was discharged to SNF/Subacute Facility(03) Discharge Diagnoses: Preston (Donita),Patti DEL VALLE May 09, 2016 13:02
--- NOTE | 2016-05-10 02:49 | Discharge Summary 2 SIG ---
DATE OF ADMISSION: 05/03/2016 DATE OF DISCHARGE: 05/08/2016 REASON FOR ADMISSION: 61-year-old female presented to emergency room complaining of the chest pain. She reported that the symptoms started about an hour ago, pain midsternal, pressure like, 8/10, nonradiating. Paramedics given the patient aspirin and nitroglycerin without significant relief. The patient has a history of end-stage renal disease, on hemodialysis. The patient did not miss any dialysis schedule, however reported having hemodialysis only twice a week. She denied smoking and any street drug abuse. Upon presentation, the patient was normotensive. Pulse oximetry stable on room air. No leukocytosis. Evidence of acute anemia with hemoglobin of 6.6 and hematocrit of 21.2. Chest x-ray showed cardiomegaly, and EKG revealed normal sinus rhythm. No ischemic changes. Troponin negative. Potassium stable. Elevated BUN and creatinine consistent with diagnosis of end stage renal disease. elevated secondary to end-stage kidney disease. The patient was admitted to telemetry. ADMITTING DIAGNOSES: 1. Chest pain, rule out acute coronary syndrome. 2. End-stage renal disease, 3. Acute anemia. HOSPITAL STAY: The patient was admitted to telemetry. The patient with a known history of liver cirrhosis. The patient undergone paracentesis with removal of 3.3 liters of ascitic fluid. Culture of ascitic fluid was negative. Blood culture were negative . Supplemental oxygen and pulmonary toilet provided as needed. Blood pressure was managed with calcium channel virgie , SABINE inhibitor was discontinued and beta virgie added as per cardio. Aspirin was continued. The last ECHO done on 04/18/2016, which revealed preserved ejection fraction of 70% with diastolic relaxation abnormality, evidence of valvular heart disease with moderate tricuspid regurgitation, and mild mitral regurgitation. Right ventricular systolic pressure of 60 consistent with [id number] pulmonary hypertension. Cardio closely followed. Serial troponin negative, telemetry negative. Thus patient was ruled out for acute myocardial infarction. Blood pressure was managed with current regimen and was stable,. Wire Frame Dipper cleared the patient for transfer to Medical/Surgical floor. Per cardiology, cardiac-john the patient appeared to be relatively stable at the present time as per physical damage appraiser. Hemoglobin and hematocrit were closely monitored. The patient required transfusion of packed red blood cells. GI followed. Patient was on Rifaximin and lactulose, ammonia was closely monitored. Per GI repeat paracentesis as needed. Prior to current admission, had paracentesis on 04/18 ( previous admission). The patient was not stable for colonoscopy as per GI. GI recommended if the patient remains sober for six months, place the patient on waiting list for liver transplant recipient. Protonix started as per GI recommendations. Hemodialysis done as per cia agent. Renal parameters and electrolytes were closely monitored and replaced as needed. Last hemodialysis 05/08. DVT and GI prophylaxis provided. Stool OB was negative. Blood sugar was managed with sliding scale insulin was stable. The patient was stable for transfer. FINAL DIAGNOSES: 1. Chest pain, acute coronary syndrome was ruled out., possibly due to ESRD and fluid overload from renal and liver failure. 2. End-stage renal disease, on hemodialysis. 3. Liver cirrhosis. 4. Status post paracentesis -3.3 liters. 5. Gastritis. 6. Ascites. 7. Anemia, s/p blood transfusion 8. Hypertension. 9. Diabetes. 10. Congestive heart failure, diastolic dysfunction. DISCHARGE MEDICATIONS: See medication reconciliation list. DISCHARGE INSTRUCTIONS: The patient was discharged to senior living facility. Follow up with medical doctor at the facility. Jackson Albright M.D. Patti [facility] N.PKilo DR: Myron JOB#: [id number] CC: JAE
[2016-05-11] MEDS ORDERED: Vitamin D 50,000 units cap ORAL SCH (16:00)
== END 2016-05-08 20:50 | DRG 291 ==
LOC: EDBD 02:43 → EMR 03:10 → 2E 03:22 → EDBEDREQ 04:09 → 4W 05-07 02:00
PROC: 5A1D60Z (ICD-10-PCS; principal; 2016-05-04)
PROC: 0W9G3ZZ Drainage of Peritoneal Cavity, Percutaneous Approach (ICD-10-PCS; 2016-05-05)
DX: I13.2 Hypertensive heart and chronic kidney disease with heart failure and with stage 5 chronic kidney disease, or end stage renal disease (principal); N18.6 End stage renal disease; E11.22 Type 2 diabetes mellitus with diabetic chronic kidney disease; I50.30 Unspecified diastolic (congestive) heart failure; Z99.2 Dependence on renal dialysis; D64.9 Anemia, unspecified; K70.31 Alcoholic cirrhosis of liver with ascites; F10.10 Alcohol abuse, uncomplicated; K29.70 Gastritis, unspecified, without bleeding; E87.5 Hyperkalemia; I48.91 Unspecified atrial fibrillation; K21.9 Gastro-esophageal reflux disease without esophagitis; E03.9 Hypothyroidism, unspecified
CPT/HCPCS: 36415; 71010; 76942; 80048; 80053; 80061; 82140; 82270; 82550; 82553; 82962; 82977; 83036; 83735; 83880; 84100; 84443; 84484; 84550; 85007; 85025; 85610; 85730; 86140; 86850; 86870; 86880; 86900; 86901; 86904; 86920; 87040; 87070; 87081; 87205; 88104; 89051; 93005; 94664; J1815

== ENCOUNTER 2016-05-19 23:33 | Inpatient (IN) | payer MEDICARE, MEDICAID ==
[~2016-05-19] VITALS: Ht 154.9 cm; Wt 59.7 kg
[~2016-05-19 23:33] MED LIST changes: +ASPIRIN EC81 MG ORAL; +HEPARIN SO5000 UNIT2 SUBQ; +IPRATROPIU0.2 MG/1 M HHN; +MIRALAX17 G2 ORAL; +PANTOPRAZOLE SO40 MG ORAL; +PCA MORPHINE1 MG/ML IVP; +PROPRANOLOL HCL40 MG ORAL; +TYLENOL EXTRA500 MG ORAL; +VITAMIN D250000 UNI1 ORAL; +ZOFRAN 4 MG4 MG/2 ML IVP; +ZOLPIDEM TARTRAT5 MG ORAL
[2016-05-20] VITALS (8 sets, daily range): BP systolic 119–194; BP diastolic 73–103
[2016-05-20] MEDS ORDERED: Phytonadione 10 mg/mL 1ml amp ONE (00:13)
[2016-05-20] MEDS ORDERED: Morphine Sulfate 4mg/ml Inj IVP ONE ×2 (00:15→00:45)
[2016-05-20] MEDS ORDERED: Phytonadione 5 MG in D5W 55 ML IVPB ONE (00:15)
[2016-05-20 00:18] LABS: MEAN CORPUSCULAR HEMOGLOBIN 32.2 PG (27.0-31.0); MEAN CORPUSCULAR HGB CONC 31.1 G/DL (32.0-36.0); MEAN CORPUSCULAR VOLUME 104 FL (80-99); MEAN PLATELET VOLUME 4.7 FL (6.5-10.1); PLATELET COUNT 191 K/UL (150-450); RED BLOOD COUNT 2.17 M/UL (4.20-5.40); WHITE BLOOD COUNT 7.7 K/UL (4.8-10.8)
[2016-05-20 00:34] LABS: INR 1.3 (0.9-1.1); PROTHROMBIN TIME 13.4 SEC (9.30-11.50)
[2016-05-20 00:35] LABS: CALCIUM 8.5 mg/dL (8.6-10.2); CREATININE 2.5 mg/dL (0.5-0.9); GLOMERULAR FILTRATION RATE 23.9 mL/min (>60); POTASSIUM 4.5 mEQ/L (3.4-4.9)
--- NOTE | 2016-05-20 01:37 | Emergency Room Report ---
History of Present Illness General Chief Complaint: General Complaint Source: Patient, Medical Record, EMS Present Illness HPI This is a 61-year-old female with history renal failure on hemodialysis. She still has a history of cirrhosis with ascites. She presents with chief complaint of bleeding from her dialysis graft. She just finished dialysis and 9 PM and when they remove the needle, her arm was bleeding profusely. They placed a clamp on it and sent her here. this has happened to her before. Patient denies any fever chills denies any nausea vomiting. Has generalized pain which is 10 out of 10. This is a chronic issue for her. Allergies: Coded Allergies: No Known Allergies (Unverified , 09/20/15) Patient History Past Medical History: see triage record, old chart reviewed, renal disease, dialysis Past Surgical History: other Pertinent Family History: none Social History: Reports: alcohol use Now: No Immunizations: other Reviewed Nursing Documentation: PMH: Agreed, PSxH: Agreed Nursing Documentation-PMH Hx Cardiac Problems: Yes - ME Hx Hypertension: Yes Hx Diabetes: Yes Hx Cancer: No Hx Gastrointestinal Problems: Yes Hx Dialysis: Yes - MWF,ESRD Hx Neurological Problems: No Hx Cerebrovascular Accident: No - Renal failure Review of Systems Eye: Denies: blurred vision, eye pain ENT: Denies: ear pain, nose congestion, throat swelling Respiratory: Denies: cough, shortness of breath Cardiovascular: Denies: chest pain, palpitations Gastrointestinal: Denies: abdominal pain, diarrhea, nausea, vomiting Musculoskeletal: Denies: back pain, joint pain Skin: Denies: rash Neurological: Denies: headache, numbness Endocrine: Denies: increased thirst, increased urine Hematologic/Lymphatic: Denies: easy bruising All Other Systems: negative except mentioned in HPI Physical Exam Vital Signs Date Time Temp Pulse Resp B/P Pulse Ox O2 Delivery O2 Flow Rate FiO2 05/19/16 23:33 96.8 96 18 161/89 94 Room Air vitals with hypertension Sp02 EP Interpretation: reviewed, normal General Appearance: well appearing, no apparent distress, alert, Chronically Ill Head: normocephalic, atraumatic Eyes: bilateral eye EOMI, bilateral eye PERRL ENT: hearing grossly normal, normal pharynx Neck: full range of motion, supple, no meningismus Respiratory: chest non-tender, lungs clear, normal breath sounds Cardiovascular #1: regular rate, rhythm, no murmur Gastrointestinal: normal bowel sounds, non tender, no mass, no organomegaly, no bruit, non-distended, other - Ascites. Abdomen distended but not tense. No pain. Musculoskeletal: back normal, gait/station normal, normal range of motion, other - Right arm: Her AV graft has 2 puncture ortega. Proximal one is pumping blood. The distal one has slight oozing. Radial pulse 2+. Psychiatric: mood/affect normal Skin: warm/dry Procedures Critical Care Time Critical Care Time Critical care is mandated in this patient who presented with arterial bleeding of her AV graft. Patient require my urgent intervention to attenuate the risks of metabolic collapse which may lead to cardiovascular collapse and . Critical care time is 35 minutes excluding any reportable procedure. Critical care time included evaluation, multiple reevaluation, looking at old charts, interpreting laboratory and diagnostic data, discussing case with patient and family and consultants, and charting. Medical Decision Making Diagnostic Impression: Primary Impression: Hemorrhage from arteriovenous dialysis graft Additional Impressions: Anemia in chronic kidney disease (CKD) Hypertension Qualified Codes: I10 - Essential (primary) hypertension Chronic pain Qualified Codes: G89.4 - Chronic pain syndrome Ascites Qualified Codes: K70.31 - Alcoholic cirrhosis of liver with ascites ER Course Patient presents with bleeding from her AV graft. Bleeding better after pressure dressing. Still losing blood. I gave her vitamin K and FFP ordered. Bleeding is probably secondary to liver disease and hypertension. Will admit for FFP and monitoring. 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 Lab Results Impression labs show anemia EKG Diagnostic Results Rate: normal Rhythm: NSR ST Segments: no acute changes Rhythm Strip Diag. Results EP Interpretation: yes Rate: 81 Rhythm: NSR, no PVC's, no ectopy Chest X-Ray Diagnostic Results EP Interpretation: Yes Findings: no consolidation, no effusion, no pneumothorax, no acute cardiopulmonary disease Number of Views: 1 Last Vital Signs Date Time Temp Pulse Resp B/P Pulse Ox O2 Delivery O2 Flow Rate FiO2 05/20/16 00:49 96.8 88 18 149/79 100 Room Air Status: improved Disposition: ADMITTED INPATIENT Condition: Serious Referrals: LANE CARNEY MD (PCP) MAG WELCH M.D. May 20, 2016 01:37
[2016-05-20] MEDS ORDERED: Acetaminophen 500mg (ES) tab ORAL PRN (05:15)
[2016-05-20] MEDS ORDERED: Miralax 17gm pkt ORAL PRN (05:15)
[2016-05-20] MEDS: Morphine Sulfate 2mg/ml Inj IVP PRN ×4 (05:58→21:28)
--- NOTE | 2016-05-20 08:38 | Consultation ---
History of Present Illness General Date patient seen: May 20, 2016 Time patient seen: 08:00 Chief Complaint: General Complaint Referring physician: dr Albright Reason for Consultation: in hospital management Present Illness HPI 61-year-old female with history renal failure, on hemodialysis and cirrhosis with ascites. Presented with chief complaint of bleeding from her dialysis graft. She finished dialysis and 9 PM 05/19 and when they remove the needle, her arm started to bleed profusely. They placed a clamp on it and sent her to ED. Never happened before Patient denied any fever chills denied any nausea, vomiting. Generalized pain 10 out of 10(chronic issue for her) in ED patient was applied pressure dressing, bleeding stopped vitamin K given, FFP ordered and patietn was transferred to [facility] for further management . HH 7.0/ 2.5, INR-1.3 Allergies: Coded Allergies: No Known Allergies (Unverified , 09/20/15) Medication History Scheduled Amlodipine Besylate* (Amlodipine Besylate*), 10 MG ORAL DAILY, (Reported) Aspirin Ec* (Aspirin Ec*), 81 MG ORAL DAILY, (Reported) Aspirin* (Aspirin*), 325 MG ORAL DAILY, (Reported) Calcitriol (Rocaltrol), 0.25 MCG PO DAILY, (Reported) Cephalexin* (Keflex*), 250 MG ORAL BID, (Reported) Cinacalcet Hcl (Sensipar), 90 MG PO DAILY, (Reported) Clonidine Hcl* (Catapres*), 0.1 MG ORAL EVERY 6 HOURS, (Reported) Cyanocobalamin (Vitamin B-12)* (Vitamin B-12*), 1,000 MCG ORAL DAILY, (Reported) Diphenoxylate HCl/Atropine (Lomotil Tablet), 1 EACH PO Q4HR, (Reported) Docusate Sodium* (Docusil*), 100 MG ORAL Q12HR, (Reported) Doxazosin Mesylate* (Cardura*), 2 MG ORAL DAILY, (Reported) Enoxaparin* (Lovenox*), 30 MG SUBQ DAILY, (Reported) Ergocalciferol (Vitamin D2)* (Vitamin D*), 50,000 UNIT ORAL ONCE A WEEK, ( Reported) Guaifenesin/Dextromethorphan (Guaifenesin-Dm Solution), 10 ML PO Q4HR, (Reported ) Heparin Sod (Porcine) (Heparin Sodium*), 5,000 UNITS SUBQ EVERY 12 HOURS, ( Reported) Hydralazine Hcl* (Hydralazine Hcl*), 50 MG ORAL EVERY 8 HOURS, (Reported) Hydromorphone Hcl (Dilaudid), 1 MG PO NEEDED, (Reported) Lactulose (Lactulose*), 30 ML ORAL Q8HR, (Reported) Lisinopril (Lisinopril*), 5 MG ORAL DAILY, (Reported) Losartan Potassium (Cozaar), 100 MG ORAL DAILY, (Reported) Mag Hydrox/Al Hydrox/Simeth (Maalox Advanced Suspension), 30 ML PO EVERY 12 HOURS, (Reported) Metoclopramide Hcl* (Reglan*), 5 MG ORAL EVERY 6 HOURS, (Reported) Omeprazole (Omeprazole), 20 MG ORAL DAILY, (Reported) Pantoprazole* (Pantoprazole*), 40 MG ORAL DAILY, (Reported) Propranolol Hcl* (Inderal*), 40 MG ORAL Q8HR, (Reported) Sevelamer Hcl (Renagel), 800 MG ORAL THREE TIMES A DAY, (Reported) Thiamine Hcl* (Vitamin B-1*), 100 MG ORAL DAILY, (Reported) Trazodone Hcl* (Desyrel*), 100 MG ORAL BEDTIME, (Reported) Scheduled PRN Acetaminophen (Acetaminophen), 650 MG ORAL Q6H PRN for Prn Headache/Temp > 101, (Reported) Acetaminophen* (Tylenol Extra Strength*), 650 MG ORAL Q4HR PRN for fever, ( Reported) Clonidine Hcl* (Catapres*), 0.1 MG ORAL EVERY 6 HOURS PRN for AD, (Reported) Clonidine Hcl* (Catapres*), 0.1 MG ORAL EVERY 4 HOURS PRN for For High Blood Pressure, (Reported) Dextrose 50 % in Water (Dextrose 50%-Water Syringe), 50 ML IV for Hypoglycemia, (Reported) Diphenhydramine Hcl* (Benadryl*), 25 MG ORAL Q6H PRN for Itching, (Reported) Hydrocodone Bit/Acetaminophen 5-325* (Winifred 5-325*), 1 TAB ORAL Q4H PRN for For Pain, (Reported) Ipratropium Friedens 0.5MG/2.5ML (Ipratropium Friedens 0.5MG/2.5ML), 3 ML HHN Q4HR PRN for Shortness of Breath, (Reported) Lorazepam* (Ativan*), 0.5 MG ORAL Q4HR PRN for AD, (Reported) Melatonin (Melatonin 3 Mg Tablet), 1 TAB ORAL BEDTIME PRN for Insomnia, ( Reported) Morphine Sulfate (Morphine Sulfate 1 mg/ml Vial), 1 MG IVP Q4HR PRN for For Pain , (Reported) Ondansetron Odt* (Zofran Odt*), 4 MG ORAL Q6H PRN for Nausea & Vomiting, ( Reported) Ondansetron* (Zofran*), 4 MG IVP Q6H PRN for Nausea & Vomiting, (Reported) Polyethylene Glycol 3350* (Miralax*), 17 GM ORAL DAILY PRN for Constipation, ( Reported) Tramadol Hcl* (Ultram*), 50 MG ORAL Q6H PRN for For Pain, (Reported) Zolpidem Tartrate* (Zolpidem Tartrate*), 5 MG ORAL BEDTIME PRN for Insomnia, ( Reported) Miscellaneous Medications Calcitriol (Rocaltrol), 0.25 MCG PO, (Reported) Calcium Carbonate/Vitamin D3 (Calcium 600 + Vit D 400 Tablet), 1 EACH PO, ( Reported) Insulin Aspart* (Novolog*), 0 SUBQ, (Reported) Patient History Healthcare decision maker Resuscitation status Full Code Advanced Directive on File No Past Medical/Surgical History Past Medical/Surgical History: (1) Abnormal LFTs (2) Thrombocytopenia (3) Transaminitis (4) Anemia (5) Diabetes (6) Gastritis (7) Hypothyroidism (8) Cirrhosis of liver (9) ESRD (end stage renal disease) (10) GERD (gastroesophageal reflux disease) (11) H/O ETOH abuse (12) HTN (hypertension) (13) CHF (congestive heart failure) (14) Chronic pain (15) Anemia in chronic kidney disease (CKD) (16) Ascites Review of Systems Constitutional: Reports: weakness Eye: Reports: no symptoms ENT: Reports: no symptoms Respiratory: Reports: no symptoms Cardiovascular: Reports: other - HTN Gastrointestinal: Reports: other - liver cirrhosis Genitourinary: Reports: see HPI Psychiatric: Reports: no symptoms Neurological: Reports: no symptoms Endocrine: Reports: other - DM Hematologic/Lymphatic: Reports: anemia Physical Exam General Appearance: WD/WN, no apparent distress, alert Lines, tubes and drains: peripheral HEENT: normocephalic, atraumatic, anicteric, mucous membranes moist Neck: non-tender, normal alignment, supple Respiratory/Chest: lungs clear, no respiratory distress, no accessory muscle use Cardiovascular/Chest: normal rate, regular rhythm - SR on tele , no JVD Abdomen: normal bowel sounds, non tender, soft Extremities: normal range of motion, no calf tenderness, normal capillary refill, other - RUE AV shunt with dressing C/D/I, R hand and R forearm with edema, cool to touch, + pulses/+ sensation /+ TTP Skin Exam: warm/dry 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, alert, oriented x 3, responsive Musculoskeletal: normal muscle bulk Last 24 Hour Vital Signs Date Time Temp Pulse Resp B/P Pulse Ox O2 Delivery O2 Flow Rate FiO2 05/20/16 06:30 97.7 05/20/16 05:58 178/103 05/20/16 04:23 94 05/20/16 04:05 97.7 95 16 05/20/16 04:05 97.7 95 16 163/103 100 Room Air 05/20/16 03:50 97.3 93 16 05/20/16 03:50 97.3 85 16 179/98 100 Room Air 05/20/16 02:40 96.8 85 18 157/80 100 Room Air 05/20/16 02:15 96.8 85 18 157/80 100 Room Air 05/20/16 01:15 96.8 05/20/16 00:49 96.8 88 18 149/79 100 Room Air 05/20/16 00:45 96.8 05/20/16 00:21 194/93 05/20/16 00:15 96.8 94 23 194/93 100 Room Air 05/19/16 23:33 96.8 96 18 161/89 94 Room Air Intake and Output 05/19/16 05/20/16 19:00 07:00 Intake Total 155.5 ml Balance 155.5 ml Intake Oral 100 ml IV Total 55.5 ml # Voids 1 Laboratory Tests Test 05/20/16 00:00 White Blood Count 7.7 K/UL (4.8-10.8) Red Blood Count 2.17 M/UL (4.20-5.40) L Hemoglobin 7.0 G/DL (12.0-16.0) L Hematocrit 22.5 % (37.0-47.0) L Mean Corpuscular Volume 104 FL (80-99) H Mean Corpuscular Hemoglobin 32.2 PG (27.0-31.0) H Mean Corpuscular Hemoglobin Concent 31.1 G/DL (32.0-36.0) L Red Cell Distribution Width 18.0 % (11.6-14.8) H Platelet Count 191 K/UL (150-450) Mean Platelet Volume 4.7 FL (6.5-10.1) L Neutrophils (%) (Auto) % (45.0-75.0) Lymphocytes (%) (Auto) % (20.0-45.0) Monocytes (%) (Auto) % (1.0-10.0) Eosinophils (%) (Auto) % (0.0-3.0) Basophils (%) (Auto) % (0.0-2.0) Prothrombin Time 13.4 SEC (9.30-11.50) H Prothromb Time International Ratio 1.3 (0.9-1.1) H Activated Partial Thromboplast Time 31 SEC (23-33) Sodium Level 139 mEQ/L (135-145) Potassium Level 4.5 mEQ/L (3.4-4.9) Chloride Level 96 mEQ/L (98-107) L Carbon Dioxide Level 35 mEQ/L (20-30) H Anion Gap 8 (5-15) Blood Urea Nitrogen 15 mg/dL (7-23) Creatinine 2.5 mg/dL (0.5-0.9) H Estimat Glomerular Filtration Rate 23.9 mL/min (>60) Glucose Level 104 mg/dL (74-106) Calcium Level 8.5 mg/dL (8.6-10.2) L Height (Feet): 5 Height (Inches): 7.00 Weight (Pounds): 130 Medications Current Medications Medications (Trade) Dose Ordered Sig/Ranjan Route PRN Reason Start Time Stop Time Status Last Admin Dose Admin Acetaminophen (Tylenol) 500 mg EVERY 6 HOURS PRN ORAL Mild Pain/Temp > 100.5 05/20/16 05:15 06/19/16 05:14 Amlodipine Besylate (Norvasc) 10 mg DAILY ORAL 05/20/16 09:00 06/19/16 08:59 Calcitriol (Rocatrol) 0.25 mcg DAILY ORAL 05/20/16 09:00 06/19/16 08:59 Clonidine HCl (Catapres) 0.1 mg Q4H PRN ORAL For High Blood Pressure 05/20/16 05:15 06/19/16 05:14 05/20/16 05:58 Dextrose (Dextrose 50%) STAT PRN IV Hypoglycemia 05/20/16 05:15 06/19/16 05:14 Diphenhydramine HCl (Benadryl) 25 mg Q6H PRN ORAL Itching/Pruritis 05/20/16 05:15 06/19/16 05:14 Morphine Sulfate (Morphine Sulfate) 2 mg EVERY 4 HOURS PRN IVP Severe Pain (Pain Scale 7-10) 05/20/16 05:15 05/27/16 05:14 05/20/16 05:58 Ondansetron HCl (Zofran) 4 mg Q6H PRN IVP Nausea & Vomiting 05/20/16 05:15 06/19/16 05:14 Pantoprazole (Protonix) 40 mg DAILY ORAL 05/20/16 09:00 06/19/16 08:59 Polyethylene Glycol (Miralax) 17 gm DAILYPRN PRN ORAL Constipation 05/20/16 05:15 06/19/16 05:14 Propranolol HCl (Inderal) 25 mg TID ORAL 05/20/16 09:00 06/19/16 08:59 Rifaximin (Xifaxan) 550 mg EVERY 12 HOURS ORAL 05/20/16 09:00 05/27/16 08:59 Tramadol HCl (Ultram) 50 mg Q6H PRN ORAL Moderate Pain (Pain Scale 4-6) 05/20/16 05:15 05/27/16 05:14 Assessment/Plan Assessment/Plan ASSESSMENT bleeding from AV fistula HTN urgency anemia of chronic renal disease coagulopathy alcoholic cirrhosis ESRD chronic pain syndrome Hx of ETOH abuse PLAN OF CARE tele bleeding stopped with pressure dressing transfuse 1 u PRBC s/p vit K give 1 u FFP today Arterial and Venous Dupelx stat vascular surgery eval- per PMD pending BP management with CCB and BB, optimize further as needed check LFT, ammonia, Rifaximin resumed pain management nephro eval as per PMD. HD as per PMD ( last 05/19) GI prophylaxis case discussed and evaluated by supervising physician Preston Rodrigues)Patti NP May 20, 2016 08:38
[2016-05-20] MEDS: traMADol 50mg tab ORAL PRN (09:08)
[2016-05-20] MEDS: Propranolol 40mg tab ORAL SCH ×3 (09:09→17:55)
[2016-05-20] MEDS: Calcitriol 0.25mcg Cap ORAL SCH (09:09)
[2016-05-20] MEDS: Rifaximin 550mg tab ORAL SCH ×2 (10:20→21:20)
--- NOTE | 2016-05-20 12:02 | Consultation ---
Consult Note Consult Note This is a 61-year-old female with history renal failure on hemodialysis. She still has a history of cirrhosis with ascites. She presents with chief complaint of bleeding from her dialysis graft. She just finished dialysis and 9 PM and when they remove the needle, her arm was bleeding profusely. They placed a clamp on it and sent her here. this has happened to her before. Patient denies any fever chills denies any nausea vomiting. Has generalized pain which is 10 out of 10. This is a chronic issue for her. Past Medical History: DM, HTN, renal disease, dialysis Hx Cardiac Problems: Yes - DE, Anemia, hyperkalemia, Hyperlipidemia Hx Hypertension: Yes Hx Diabetes: Yes Hx Gastrointestinal Problems: Yes - Kidney failure (ESRD), GERD Hx Dialysis: Yes - MWF Assessment/Plan status: ESRD- hemmorrhage from left arm graft Anemia Ascitis- DM HTN At Fib Plan: Vascular surgical eval HD as needed- optimize cardiac and pulmonary status- BP meds adjustment- 2 D Echo previous admission: Left ventricular ejection fraction estimated to be 70 %. Monitor lytes and renal parameters- Per consultants Transfuse Paracynthesis, Ascitis aspiration as needed EPPE MONTERROSO May 20, 2016 12:02
--- NOTE | 2016-05-20 12:51 | Internal Med Progress Note ---
Subjective Date of Service: May 20, 2016 Physician Name Javier Alvarez Attending Physician Jackson Albright MD Current Medications Medications (Trade) Dose Ordered Sig/Ranjan Route PRN Reason Start Time Stop Time Status Last Admin Dose Admin Acetaminophen (Tylenol) 500 mg EVERY 6 HOURS PRN ORAL Mild Pain/Temp > 100.5 05/20/16 05:15 06/19/16 05:14 Amlodipine Besylate (Norvasc) 10 mg DAILY ORAL 05/20/16 09:00 06/19/16 08:59 05/20/16 09:09 Calcitriol (Rocatrol) 0.25 mcg DAILY ORAL 05/20/16 09:00 06/19/16 08:59 05/20/16 09:09 Clonidine HCl (Catapres) 0.1 mg Q4H PRN ORAL For High Blood Pressure 05/20/16 05:15 06/19/16 05:14 05/20/16 05:58 Dextrose (Dextrose 50%) STAT PRN IV Hypoglycemia 05/20/16 05:15 06/19/16 05:14 Diphenhydramine HCl (Benadryl) 25 mg Q6H PRN ORAL Itching/Pruritis 05/20/16 05:15 06/19/16 05:14 Morphine Sulfate (Morphine Sulfate) 2 mg EVERY 4 HOURS PRN IVP Severe Pain (Pain Scale 7-10) 05/20/16 05:15 05/27/16 05:14 05/20/16 11:18 Ondansetron HCl (Zofran) 4 mg Q6H PRN IVP Nausea & Vomiting 05/20/16 05:15 06/19/16 05:14 Pantoprazole (Protonix) 40 mg DAILY ORAL 05/20/16 09:00 06/19/16 08:59 05/20/16 09:17 Polyethylene Glycol (Miralax) 17 gm DAILYPRN PRN ORAL Constipation 05/20/16 05:15 06/19/16 05:14 Propranolol HCl (Inderal) 25 mg TID ORAL 05/20/16 09:00 06/19/16 08:59 05/20/16 09:09 Rifaximin (Xifaxan) 550 mg EVERY 12 HOURS ORAL 05/20/16 09:00 05/27/16 08:59 05/20/16 10:20 Tramadol HCl (Ultram) 50 mg Q6H PRN ORAL Moderate Pain (Pain Scale 4-6) 05/20/16 05:15 05/27/16 05:14 05/20/16 09:08 Allergies: Coded Allergies: No Known Allergies (Unverified , 09/20/15) ROS Limited/Unobtainable: No Constitutional: Reports: no symptoms HEENT: Reports: no symptoms Cardiovascular: Reports: no symptoms Respiratory: Reports: no symptoms Gastrointestinal/Abdominal: Reports: no symptoms Genitourinary: Reports: no symptoms Neurologic/Psychiatric: Reports: no symptoms Subjective 61 YO F admitted with dialysis shunt hemorrhage. Await vascular surgery consult. Cover for Int [facility]-Dr Albright. Objective Last Vital Signs Date Time Temp Pulse Resp B/P Pulse Ox O2 Delivery O2 Flow Rate FiO2 05/20/16 09:09 84 141/78 05/20/16 08:00 97.9 18 92 Room Air General Appearance: WD/WN, alert, mild distress EENT: PERRL/EOMI, normal ENT inspection Neck: non-tender, normal alignment, supple Cardiovascular: normal peripheral pulses, normal rate, regular rhythm, no gallop/murmur, no JVD Respiratory/Chest: chest wall non-tender, lungs clear, normal breath sounds, no respiratory distress, no accessory muscle use Abdomen: normal bowel sounds, non tender, soft, no organomegaly, no mass Extremities: normal range of motion, other - Dressing A/V graft 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, no motor/sensory deficits Skin: normal pigmentation, warm/dry Laboratory Tests Test 05/20/16 00:00 White Blood Count 7.7 K/UL (4.8-10.8) Red Blood Count 2.17 M/UL (4.20-5.40) L Hemoglobin 7.0 G/DL (12.0-16.0) L Hematocrit 22.5 % (37.0-47.0) L Mean Corpuscular Volume 104 FL (80-99) H Mean Corpuscular Hemoglobin 32.2 PG (27.0-31.0) H Mean Corpuscular Hemoglobin Concent 31.1 G/DL (32.0-36.0) L Red Cell Distribution Width 18.0 % (11.6-14.8) H Platelet Count 191 K/UL (150-450) Mean Platelet Volume 4.7 FL (6.5-10.1) L Neutrophils (%) (Auto) % (45.0-75.0) Lymphocytes (%) (Auto) % (20.0-45.0) Monocytes (%) (Auto) % (1.0-10.0) Eosinophils (%) (Auto) % (0.0-3.0) Basophils (%) (Auto) % (0.0-2.0) Prothrombin Time 13.4 SEC (9.30-11.50) H Prothromb Time International Ratio 1.3 (0.9-1.1) H Activated Partial Thromboplast Time 31 SEC (23-33) Sodium Level 139 mEQ/L (135-145) Potassium Level 4.5 mEQ/L (3.4-4.9) Chloride Level 96 mEQ/L (98-107) L Carbon Dioxide Level 35 mEQ/L (20-30) H Anion Gap 8 (5-15) Blood Urea Nitrogen 15 mg/dL (7-23) Creatinine 2.5 mg/dL (0.5-0.9) H Estimat Glomerular Filtration Rate 23.9 mL/min (>60) Glucose Level 104 mg/dL (74-106) Calcium Level 8.5 mg/dL (8.6-10.2) L Intake and Output 05/19/16 05/20/16 19:00 07:00 Intake Total 155.5 ml Balance 155.5 ml Intake Oral 100 ml IV Total 55.5 ml # Voids 1 Assessment/Plan Problem List: (1) Malfunction of arteriovenous dialysis fistula Assessment & Plan: S/P hemorrhage. Await vascular surgery consult. (2) Anemia Assessment & Plan: Blood loss secondary to A/V graft hemorrhage. S/P transfurion 1 unit PRBC. (3) ESRD (end stage renal disease) Assessment & Plan: See nephrology note. S/P dialysis 05/19/16. (4) HTN (hypertension) Assessment & Plan: Cont propranolol and norvasc. (5) Cirrhosis of liver (6) H/O ETOH abuse (7) Ascites (8) CHF (congestive heart failure) (9) Deep venous thrombosis of axillary vein Assessment & Plan: Hold anticoagulation due to hemorrrhage. Await Hematology ( [place]) and vasc surgery ([place]) consult. Status: not improved ALVAREZ,JAVIER May 20, 2016 12:51
--- NOTE | 2016-05-20 16:28 | Consultation ---
DATE OF CONSULTATION: 05/20/2016 CONSULTING PHYSICIAN: Ayush Reyes M.D. REFERRING PHYSICIAN: Jackson Albright M.D. CHIEF COMPLAINT: Cirrhosis and ascites. HISTORY OF PRESENT ILLNESS: This is a very pleasant 61-year-old female, known to me from prior admissions. The patient has a history of most probably alcoholic cirrhosis, complicated with ascites in April 2016. The patient had 3 liters of paracentesis. The patient has also had history of end-stage renal disease, on hemodialysis. Apparently, she had a bleeding from the hemodialysis catheter. She was admitted for that. In last admission, the patient had endoscopy, which did not show any obvious esophageal varices. The patient has gastritis. Colonoscopy was on hold. The patient was recommended to follow as an outpatient and when she is sober for over six months, we will plan her to refer her for possible liver transplant evaluation. In last admission, the patient also had elevated ammonia level, for which was started on lactulose and Xifaxan. PAST MEDICAL HISTORY: 1. Cirrhosis of the liver from most probably alcohol. 2. Ascites. 3. Gastritis. 4. end-stage renal disease, on hemodialysis. 5. Diabetes. 6. Elevated ammonia levels. ALLERGY: No known drug allergies. MEDICATIONS: Please see medication reconciliation list. SOCIAL HISTORY: The patient denies any recent tobacco, alcohol, or drug abuse. FAMILY HISTORY: Noncontributory. REVIEW OF SYSTEMS: A 10-point review of systems was performed and pertinent positives in history of present illness. PHYSICAL EXAMINATION: VITAL SIGNS: Temperature is 97.7 degrees, pulse is 95, respirations are 16, and blood pressure is 178/103. HEENT: Normocephalic and atraumatic head. Sclerae nonicteric. NECK: Supple. No evidence of lymphadenopathy. CARDIOVASCULAR: Regular rate and rhythm. Plus S1 and S2. LUNGS: Decreased breath sounds bilaterally on supine exam. ABDOMEN: Soft and nontender. No rebound. No guarding. No peritoneal sign. EXTREMITIES: No cyanosis. No clubbing. No edema. LABORATORY DATA: White count is 7.7, hemoglobin 7, hematocrit 22, and platelet count is 191,000. ASSESSMENT: This is a 61-year-old female with cirrhosis; ascites; history of elevated ammonia level; and end-stage renal disease, on dialysis, with bleeding from dialysis catheter. PLAN: Hold on GI procedure at this time. Transfuse with the next hemodialysis. Repeat abdominal ultrasound and repeat paracentesis if there is evidence of large ascites. Add Xifaxan to the medications. Consider discontinuing propranolol if the patient does not need it because she did not have any varices on the endoscopy. I want to thank, Dr. Jackson Albright, for this kind referral. Ayush Reyes M.D. DR: SRIKANTH JOB#: [id number] CC: Jackson Albright M.D.; Fax#: [phone]
[2016-05-20] MEDS ORDERED: Tubing Blood Filter IV ONE (17:44)
[2016-05-20] MEDS ORDERED: NS 275ml ONE (17:44)
--- NOTE | 2016-05-20 21:34 | General Progress Note ---
Progress Note Progress Note Patient seen and examined earlier Consult dictated # [id number] MILLER RICHARDS May 20, 2016 21:34
--- NOTE | 2016-05-20 22:28 | Consultation ---
DATE OF CONSULTATION: 05/20/2016 HEMATOLOGY/ONCOLOGY CONSULTATION: CONSULTING PHYSICIAN: Asaf Tobar M.D. ATTENDING PHYSICIAN: Jackson Albright M.D. REQUESTING PHYSICIAN: Adair Huerta M.D. CURRENT COMPLAINT AND HISTORY OF PRESENT ILLNESS: Dear Dr. Huerta and Dr. Albright, Today, I had an opportunity to see one of your patients. The patient is a 61 years old delightful female, who has a history of renal failure, liver cirrhosis, and ascites, who came with bleeding from the dialysis graft. The patient just received dialysis and she was bleeding profusely from the dialysis graft. During evaluation, it was found that the patient has phlebitis with upper extremities. phlebitis, left lower extremities, bleeding from the catheter, and anemia secondary to bleeding from dialysis graft. PAST MEDICAL HISTORY: 1. End-stage renal disease, hemodialysis-dependent. 2. Anemia of chronic kidney. 3. Anemia with iron-deficient. 4. Anemia of kidney disease. 5. Coronary artery disease. 6. History of acute [place]. 7. Hypertension. 8. Diabetes mellitus. 9. GERD. MEDICATIONS: 1. Norvasc. 2. Rocaltrol. 3. Imdur. 4. Protonix. 5. Rifaximin. 6. Morphine sulfate. 7. MiraLax. 8. Benadryl. 9. Tylenol. 10. Catapres. 11. Zofran. FAMILY HISTORY: Noncontributory. SOCIAL HISTORY: No history of smoking. No history of alcohol abuse. No history of illicit drug use. REVIEW OF SYSTEMS: General description: The patient is not in any significant distress, although she is chronically ill. Respiratory: Mild shortness of breath on exertion. Gastrointestinal: The patient claims constipation. Musculoskeletal: The patient claims muscle aches. PHYSICAL EXAMINATION: VITAL SIGNS: T-max is 97.0 degrees, respiratory rate 20, heart rate 80, and blood pressure 130/80. HEENT: Head is normocephalic and atraumatic. NECK: Supple. No thyroid enlargement. No lymphadenopathy. LUNGS: Decreased breath sounds bilaterally. A few rhonchi on the basis. HEART: S1 and S2 are regular. ABDOMEN: Soft and benign. No organomegaly present. Bowel sounds are present. EXTREMITIES: No cyanosis, clubbing, or edema. LABORATORY DATA: Hemoglobin is 7.0, hematocrit 22.5, and platelets 191,000. WBC is 7.7. Creatinine is 2.5. Coagulation shows INR 1.3 and PT 13.4. IMPRESSION: 1. Anemia of kidney disease. 2. Anemia secondary to bleeding from dialysis graft. 3. Anemia of chronic kidney. 4. Decreased hemoglobin and hematocrit due to gastrointestinal bleed. 5. Anemia of iron deficiency. 6. End-stage renal disease, hemodialysis dependent. 7. History of acute myocardial infarction. 8. Coronary artery disease. 9. Hypertension. 10. Diabetes mellitus. 11. Gastroesophageal reflux disease. 12. Malnutrition. 13. Failure to thrive. 14. Ascites. 15. History of atrial fibrillation. RECOMMENDATIONS: 1. Watch count. 2. Watch coagulopathy. 3. Vitamin K p.r.n. basis. 4. Fresh frozen plasma p.r.n. basis. 5. Venous Doppler bilateral lower extremities to rule out deep venous thrombosis. 6. No anticoagulation at this point. 7. Close followup. 8. Complete hemodialysis on p.r.n. basis. 9. Iron IV. 10. Procrit subcutaneously. Asaf Tobar MD DR: DAYANNA/betty JOB#: [id number] CC:
[2016-05-20] MEDS: Zolpidem 5mg tab ORAL PRN ×2 (22:53→22:54)
[2016-05-21] VITALS: BP 139/84
--- NOTE | 2016-05-21 00:28 | Consultation ---
DATE OF CONSULTATION: 05/20/2016 VASCULAR SURGERY CONSULTATION REFERRING PHYSICIAN: Jackson Albright M.D. REASON FOR EVALUATION: Malfunctioning bleeding right arm AV graft. HISTORY OF PRESENT ILLNESS: This is a 61-year-old female, who presented through the emergency room with bleeding of right arm AV graft. This reportedly was placed over a year ago at [facility] and by another surgeon, the patient had completed her dialysis on the Sunday and subsequently had bleeding. This was stopped by pressure dressing. The patient now has a thrombosed right arm AV graft with right arm edema. Vascular Surgery is consulted for further evaluation. The patient's hemoglobin is 7, she is getting a unit of blood and also has liver cirrhosis with ascites. Currently, she has no complaints. PAST MEDICAL HISTORY: As above, history of liver cirrhosis, alcoholic ascites requiring paracentesis, likely alcoholic, diabetes mellitus, hypertension, end-stage renal failure on hemodialysis, history of right arm AV graft placed at [facility] in 2016, history of anemia, hypertension, atrial fibrillation, and echocardiogram, left ventricular ejection fraction of 70%. MEDICATIONS: Current medications are all reviewed and see attached list. ALLERGIES: No known drug allergies. SOCIAL HISTORY: Currently, no history of smoking, drugs, or alcohol abuse. She was a former drinker. FAMILY HISTORY: Unremarkable. REVIEW OF SYSTEMS: Cardiovascular: No history of chest pain or palpitation. Pulmonary: No cough. No hemoptysis. Gastrointestinal: No history of abdominal pain, constipation, or diarrhea. Genitourinary: No urinary symptoms. Neurological: No history of stroke, seizures, or amaurosis fugax. PHYSICAL EXAMINATION: VITAL SIGNS: The patient is afebrile at 97.7 degrees, heart rate 94, blood pressure 178/103, respirations 16, and saturation 100% on room air. LUNGS: Clear to auscultation. HEART: Regular. ABDOMEN: Soft and distention with mild ascites. EXTREMITIES: Right arm dressing was removed. Right upper arm brachial artery to axillary vein av graft with absent thrill. Thrombosed shunt There is significant edema of the antecubital fossa and forearm. The skin is clear, dry, and intact with no evidence of open wound. There is weakly palpable radial pulse. Lots of scars on her chest. She has palpable femoral pulses. Feet are warm and intact pedal Dopplers bilaterally. LABORATORY AND DIAGNOSTIC DATA: Laboratory reveals WBC of 7.7, hemoglobin of 7.0, and platelet count is 191,000. Sodium 139, potassium 4.5, chloride is 96, CO2 is 35, BUN is 15, creatinine is 2.5, glucose is 104, and calcium is 8.5. IMPRESSION: 1. 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 2. End-stage renal failure requiring access for dialysis. 3. History of hypertension and alcoholic liver cirrhosis with ascites. 4. History of anemia. 5. Chronic pain syndrome. 6. History of atrial fibrillation, normal ejection fraction. PLAN OF ACTION: 1. Right upper arm elevation and forearm Deon wrap stocking to reduce edema. 2. We will schedule the patient for a tunneled PermCath on Sunday for hemodialysis per renal service. We will review the ultrasound of the upper extremity. 3. Ascites and cirrhosis for GI service. 4. The patient can be discharged after hemodialysis on Sunday and we will schedule the patient for right arm AV shunt declot versus a new shunt placement as an outpatient in 7 to 10 days once all the edema has subsided. The above was discussed at length with the patient and the nurse at bedside. Vitor Ann M.D. DR: Janes JOB#: [id number] CC: Vitor Ann M.D.; Fax#: [phone] Kwong M.D.; Fax#: [phone] JAE
[2016-05-21 04:00] VITALS: BP 163/79
[2016-05-21 04:41] LABS: MEAN CORPUSCULAR HEMOGLOBIN 30.9 PG (27.0-31.0); MEAN CORPUSCULAR VOLUME 100 FL (80-99); MEAN PLATELET VOLUME 5.6 FL (6.5-10.1); PLATELET COUNT 177 K/UL (150-450); RED BLOOD COUNT 2.33 M/UL (4.20-5.40); RED CELL DISTRIBUTION WIDTH 20.1 % (11.6-14.8); WHITE BLOOD COUNT 6.9 K/UL (4.8-10.8)
[2016-05-21 05:02] LABS: INR 1.2 (0.9-1.1); PROTHROMBIN TIME 12.7 SEC (9.30-11.50)
[2016-05-21 05:04] LABS: ALBUMIN/GLOBULIN RATIO 0.7 (1.0-2.7); CALCIUM 8.4 mg/dL (8.6-10.2); CREATININE 4.3 mg/dL (0.5-0.9); GLOMERULAR FILTRATION RATE 12.7 mL/min (>60); POTASSIUM 5.9 mEQ/L (3.4-4.9); TOTAL PROTEIN 7.2 g/dL (6.6-8.7)
[2016-05-21 05:05] LABS: CRP QUANT 3.1 mg/dL (< 0.5); MAGNESIUM 1.8 mg/dL (1.7-2.5); PHOSPHORUS 7.3 mg/dL (2.5-4.8); URIC ACID 4.1 mg/dL (3.0-7.5)
[2016-05-21 08:00] VITALS: BP 148/81
--- NOTE | 2016-05-21 08:06 | General Progress Note ---
Assessment/Plan Assessment/Plan ASSESSMENT: 1. Upper extremitiy dvt - at this time, coumadin on hold given current hemorrhage, will also await on final read from radiologist before further recs 2. Anemia on chronic kidney disease. ferritin 706, esr elevated, on epo 3. 12 mm nodule in the liver 4. Elevated tumor markers. The patient with a history of elevated tumor markers, CA-199 and CA-[address] were [address] An imaging CT scan shows potential sclerosis versus metastatic neoplasm, metabolic abnormality, in addition 12 mm enhancing nodule noted nonspecific and liver, which will need to be followed up. Skeletal survey nonspecific and to obtain NM scan shows no evidence of malignancy. Ascitic results show no abnormalities 5. History of alcohol abuse. 6. Abdominal pain. 7. Atelectasis. 8. Pulmonary edema. 9. Ascites. RECOMMENDATION: 1. Await on final read from radiologist before further recs 2. Continue epogen sq 3. Imaging of the liver nodule every six months per GI service to monitor nodule growth every six months, which is 12 mm, which will need to be followed up. 4. Peripheral smear shows no abnormalities 5. Hemodialysis three times a week. 6. Appreciate pulm and nephro recs 7. Does not appear patient has any malignancy 8. Follow from oncology perspective 9. Holding anticoag at this time Thank you, Fabrizio Tobar MD Subjective Constitutional: Denies: chills, diaphoresis, fever, malaise, no symptoms, other , weakness HEENT: Denies: blurred vision, double vision, ear discharge, ear pain, eye pain , mouth pain, mouth swelling, no symptoms, nose congestion, nose pain, other, tearing, throat pain, throat swelling Cardiovascular: Denies: chest pain, edema, irregular heart rate, lightheadedness, no symptoms, other, palpitations, syncope Respiratory: Denies: SOB at rest, SOB with excertion, cough, no symptoms, orthopnea, other, shortness of breath, sputum, stridor, wheezing Gastrointestinal/Abdominal: Denies: abdomen distended, abdominal pain, black stools, blood in stool, constipated, diarrhea, difficulty swallowing, nausea, no symptoms, other, poor appetite, poor fluid intake, rectal bleeding, tarry stools, vomiting Allergies: Coded Allergies: No Known Allergies (Unverified , 09/20/15) Subjective stable, no events, no fevers or chills, holding anticoag Objective Last 24 Hour Vital Signs Date Time Temp Pulse Resp B/P Pulse Ox O2 Delivery O2 Flow Rate FiO2 05/21/16 04:06 163/79 05/21/16 04:00 98.1 98 20 163/79 93 Room Air 05/21/16 03:42 75 05/21/16 00:00 98.2 78 20 139/84 93 Room Air 05/20/16 23:57 78 05/20/16 19:52 78 05/20/16 19:00 97.9 79 18 133/86 95 Room Air 05/20/16 17:55 78 119/73 05/20/16 16:00 79 05/20/16 13:46 78 119/73 05/20/16 12:00 78 05/20/16 12:00 98.2 78 22 119/73 94 Room Air 05/20/16 09:09 84 141/78 05/20/16 09:09 84 141/78 Intake and Output 05/20/16 05/21/16 19:00 07:00 Intake Total 500 ml Balance 500 ml Intake Oral 500 ml # Voids 2 Laboratory Tests 05/20/16 17:25: Fibrinogen 358, Lactate Dehydrogenase 201, Carcinoembryonic Antigen 2.7, CA 125 Antigen [Pending] 05/21/16 04:00: White Blood Count 6.9, Red Blood Count 2.33L, Hemoglobin 7.2L, Hematocrit 23.3L , Mean Corpuscular Volume 100H, Mean Corpuscular Hemoglobin 30.9, Mean Corpuscular Hemoglobin Concent 31.0L, Red Cell Distribution Width 20.1H, Platelet Count 177, Mean Platelet Volume 5.6L, Neutrophils (%) (Auto) , Lymphocytes (%) (Auto) , Monocytes (%) (Auto) , Eosinophils (%) (Auto) , Basophils (%) (Auto) , Prothrombin Time 12.7H, Prothromb Time International Ratio 1.2H, Activated Partial Thromboplast Time 31, Sodium Level 141, Potassium Level 5.9H, Chloride Level 94L, Carbon Dioxide Level 33H, Anion Gap 14, Blood Urea Nitrogen 31H, Creatinine 4.3#H, Estimat Glomerular Filtration Rate 12.7, Glucose Level 79, Uric Acid 4.1, Calcium Level 8.4L, Phosphorus Level 7.3H, Magnesium Level 1.8, Iron Level 69, Total Iron Binding Capacity 155L, Percent Iron Saturation 45, Unsaturated Iron Binding 86L, Ferritin 1176H, Total Bilirubin 0.4, Gamma Glutamyl Transpeptidase 23, Aspartate Amino Transf (AST/ SGOT) 13, Alanine Aminotransferase (ALT/SGPT) 7, Alkaline Phosphatase 89, Ammonia 33, C-Reactive Protein, Quantitative 3.1H, Pro-B-Type Natriuretic Peptide 00730P, Total Protein 7.2, Albumin 3.0L, Globulin 4.2, Albumin/Globulin Ratio 0.7L, Alpha Fetoprotein [Pending] Height (Feet): 5 Height (Inches): 7.00 Weight (Pounds): 130 General Appearance: alert EENT: TMs normal Neck: supple Cardiovascular: normal peripheral pulses, no JVD Respiratory/Chest: no respiratory distress Abdomen: no organomegaly Extremities: non-tender Edema: 1+ Leg (L), 1+ Leg (R) Edema: mild edema Neurologic: alert Skin: warm/dry Fabrizio Tobar May 21, 2016 08:06
[2016-05-21] MEDS: Rifaximin 550mg tab ORAL SCH ×2 (08:50→20:12)
[2016-05-21] MEDS: Propranolol 40mg tab ORAL SCH ×3 (08:52→17:24)
[2016-05-21] MEDS: Calcitriol 0.25mcg Cap ORAL SCH (08:52)
[2016-05-21] MEDS: Morphine Sulfate 2mg/ml Inj IVP PRN ×3 (08:57→20:25)
[2016-05-21 09:17] LABS: MEAN CORPUSCULAR HEMOGLOBIN 30.7 PG (27.0-31.0); MEAN CORPUSCULAR HGB CONC 30.7 G/DL (32.0-36.0); MEAN CORPUSCULAR VOLUME 100 FL (80-99); MEAN PLATELET VOLUME 5.4 FL (6.5-10.1); PLATELET COUNT 166 K/UL (150-450); RED BLOOD COUNT 2.27 M/UL (4.20-5.40); RED CELL DISTRIBUTION WIDTH 19.5 % (11.6-14.8); WHITE BLOOD COUNT 6.8 K/UL (4.8-10.8)
--- NOTE | 2016-05-21 09:47 | General Progress Note ---
Assessment/Plan Problem List: (1) HTN (hypertension) ICD Codes: I10 - Essential (primary) hypertension SNOMED: 69241189 (2) GERD (gastroesophageal reflux disease) ICD Codes: K21.9 - Gastro-esophageal reflux disease without esophagitis SNOMED: 981252042 (3) ESRD (end stage renal disease) ICD Codes: N18.6 - End stage renal disease SNOMED: 91429037 (4) Cirrhosis of liver ICD Codes: K74.60 - Unspecified cirrhosis of liver SNOMED: 12171547 (5) Diabetes ICD Codes: E11.9 - Type 2 diabetes mellitus without complications SNOMED: 98094955 (6) Anemia ICD Codes: D64.9 - Anemia, unspecified SNOMED: 894459997 Assessment/Plan fu H&H pend paracentesis prn blood transfusion out patient liver transplant referral Subjective Allergies: Coded Allergies: No Known Allergies (Unverified , 09/20/15) Objective Last 24 Hour Vital Signs Date Time Temp Pulse Resp B/P Pulse Ox O2 Delivery O2 Flow Rate FiO2 05/21/16 08:52 77 148/81 05/21/16 08:50 77 148/81 05/21/16 04:06 163/79 05/21/16 04:00 98.1 98 20 163/79 93 Room Air 05/21/16 03:42 75 05/21/16 00:00 98.2 78 20 139/84 93 Room Air 05/20/16 23:57 78 05/20/16 19:52 78 05/20/16 19:00 97.9 79 18 133/86 95 Room Air 05/20/16 17:55 78 119/73 05/20/16 16:00 79 05/20/16 13:46 78 119/73 05/20/16 12:00 78 05/20/16 12:00 98.2 78 22 119/73 94 Room Air Intake and Output 05/20/16 05/21/16 19:00 07:00 Intake Total 500 ml Balance 500 ml Intake Oral 500 ml # Voids 2 Laboratory Tests 05/20/16 17:25: Fibrinogen 358, Lactate Dehydrogenase 201, Carcinoembryonic Antigen 2.7, CA 125 Antigen [Pending] 05/21/16 04:00: White Blood Count 6.9, Red Blood Count 2.33L, Hemoglobin 7.2L, Hematocrit 23.3L , Mean Corpuscular Volume 100H, Mean Corpuscular Hemoglobin 30.9, Mean Corpuscular Hemoglobin Concent 31.0L, Red Cell Distribution Width 20.1H, Platelet Count 177, Mean Platelet Volume 5.6L, Neutrophils (%) (Auto) , Lymphocytes (%) (Auto) , Monocytes (%) (Auto) , Eosinophils (%) (Auto) , Basophils (%) (Auto) , Prothrombin Time 12.7H, Prothromb Time International Ratio 1.2H, Activated Partial Thromboplast Time 31, Sodium Level 141, Potassium Level 5.9H, Chloride Level 94L, Carbon Dioxide Level 33H, Anion Gap 14, Blood Urea Nitrogen 31H, Creatinine 4.3#H, Estimat Glomerular Filtration Rate 12.7, Glucose Level 79, Uric Acid 4.1, Calcium Level 8.4L, Phosphorus Level 7.3H, Magnesium Level 1.8, Iron Level 69, Total Iron Binding Capacity 155L, Percent Iron Saturation 45, Unsaturated Iron Binding 86L, Ferritin 1176H, Total Bilirubin 0.4, Gamma Glutamyl Transpeptidase 23, Aspartate Amino Transf (AST/ SGOT) 13, Alanine Aminotransferase (ALT/SGPT) 7, Alkaline Phosphatase 89, Ammonia 33, C-Reactive Protein, Quantitative 3.1H, Pro-B-Type Natriuretic Peptide 57388U, Total Protein 7.2, Albumin 3.0L, Globulin 4.2, Albumin/Globulin Ratio 0.7L, Alpha Fetoprotein [Pending] 05/21/16 08:39: White Blood Count 6.8, Red Blood Count 2.27L, Hemoglobin 7.0L, Hematocrit 22.7L , Mean Corpuscular Volume 100H, Mean Corpuscular Hemoglobin 30.7, Mean Corpuscular Hemoglobin Concent 30.7L, Red Cell Distribution Width 19.5H, Platelet Count 166, Mean Platelet Volume 5.4L, Neutrophils (%) (Auto) , Lymphocytes (%) (Auto) , Monocytes (%) (Auto) , Eosinophils (%) (Auto) , Basophils (%) (Auto) , Neutrophils % (Manual) [Pending], Lymphocytes % (Manual) [Pending], Platelet Estimate [Pending], Platelet Morphology [Pending], Hepatitis A IgM Antibody [Pending], Hepatitis B Surface Antigen [Pending], Hepatitis B Core IgM Antibody [Pending], Hepatitis C Antibody [Pending], HIV (1& 2) Antibody Rapid Negative Height (Feet): 5 Height (Inches): 7.00 Weight (Pounds): 130 General Appearance: alert EENT: normal ENT inspection Neck: supple Cardiovascular: normal rate Respiratory/Chest: decreased breath sounds Abdomen: normal bowel sounds, non tender, soft Extremities: non-tender GEOVANNY RAMIREZ May 21, 2016 09:47
[2016-05-21 09:50] LABS: ANISOCYTOSIS 2+; BAND NEUTROPHILS % (MANUAL) 0 % (0-8); BASOPHILS % (MANUAL) 1 % (0-2); EOSINOPHILS % (MANUAL) 5 % (0-3); HYPOCHROMASIA 3+; LYMPHOCYTES % (MANUAL) 25 % (20-45); NEUTROPHILS % (MANUAL) 65 % (45-75); PLATELET ESTIMATE ADEQUATE; PLATELET MORPHOLOGY NORMAL; TOTAL CELLS COUNTED 100
[2016-05-21] MEDS ORDERED: Sodium Polystyrene Sulfonate 15gm Powder ORAL ONE (10:00)
--- NOTE | 2016-05-21 10:00 | General Progress Note ---
Assessment/Plan Status Narrative K elevated Assessment/Plan status: ESRD- hemmorrhage from right arm graft Anemia Ascitis- DM HTN At Fib Plan: Vascular surgical eval noted Kayexelate- HD in am after permacath optimize cardiac and pulmonary status- BP meds adjustment- 2 D Echo previous admission: Left ventricular ejection fraction estimated to be 70 %. Monitor lytes and renal parameters- Per consultants Transfuse Paracynthesis, Ascitis aspiration as needed Subjective ROS Limited/Unobtainable: No Constitutional: Reports: malaise Allergies: Coded Allergies: No Known Allergies (Unverified , 09/20/15) Objective Last 24 Hour Vital Signs Date Time Temp Pulse Resp B/P Pulse Ox O2 Delivery O2 Flow Rate FiO2 05/21/16 08:52 77 148/81 05/21/16 08:50 77 148/81 05/21/16 04:06 163/79 05/21/16 04:00 98.1 98 20 163/79 93 Room Air 05/21/16 03:42 75 05/21/16 00:00 98.2 78 20 139/84 93 Room Air 05/20/16 23:57 78 05/20/16 19:52 78 05/20/16 19:00 97.9 79 18 133/86 95 Room Air 05/20/16 17:55 78 119/73 05/20/16 16:00 79 05/20/16 13:46 78 119/73 05/20/16 12:00 78 05/20/16 12:00 98.2 78 22 119/73 94 Room Air Intake and Output 05/20/16 05/21/16 19:00 07:00 Intake Total 500 ml Balance 500 ml Intake Oral 500 ml # Voids 2 Laboratory Tests 05/20/16 17:25: Fibrinogen 358, Lactate Dehydrogenase 201, Carcinoembryonic Antigen 2.7, CA 125 Antigen [Pending] 05/21/16 04:00: White Blood Count 6.9, Red Blood Count 2.33L, Hemoglobin 7.2L, Hematocrit 23.3L , Mean Corpuscular Volume 100H, Mean Corpuscular Hemoglobin 30.9, Mean Corpuscular Hemoglobin Concent 31.0L, Red Cell Distribution Width 20.1H, Platelet Count 177, Mean Platelet Volume 5.6L, Neutrophils (%) (Auto) , Lymphocytes (%) (Auto) , Monocytes (%) (Auto) , Eosinophils (%) (Auto) , Basophils (%) (Auto) , Prothrombin Time 12.7H, Prothromb Time International Ratio 1.2H, Activated Partial Thromboplast Time 31, Sodium Level 141, Potassium Level 5.9H, Chloride Level 94L, Carbon Dioxide Level 33H, Anion Gap 14, Blood Urea Nitrogen 31H, Creatinine 4.3#H, Estimat Glomerular Filtration Rate 12.7, Glucose Level 79, Uric Acid 4.1, Calcium Level 8.4L, Phosphorus Level 7.3H, Magnesium Level 1.8, Iron Level 69, Total Iron Binding Capacity 155L, Percent Iron Saturation 45, Unsaturated Iron Binding 86L, Ferritin 1176H, Total Bilirubin 0.4, Gamma Glutamyl Transpeptidase 23, Aspartate Amino Transf (AST/ SGOT) 13, Alanine Aminotransferase (ALT/SGPT) 7, Alkaline Phosphatase 89, Ammonia 33, C-Reactive Protein, Quantitative 3.1H, Pro-B-Type Natriuretic Peptide 68475C, Total Protein 7.2, Albumin 3.0L, Globulin 4.2, Albumin/Globulin Ratio 0.7L, Alpha Fetoprotein [Pending] 05/21/16 08:39: White Blood Count 6.8, Red Blood Count 2.27L, Hemoglobin 7.0L, Hematocrit 22.7L , Mean Corpuscular Volume 100H, Mean Corpuscular Hemoglobin 30.7, Mean Corpuscular Hemoglobin Concent 30.7L, Red Cell Distribution Width 19.5H, Platelet Count 166, Mean Platelet Volume 5.4L, Neutrophils (%) (Auto) , Lymphocytes (%) (Auto) , Monocytes (%) (Auto) , Eosinophils (%) (Auto) , Basophils (%) (Auto) , Differential Total Cells Counted 100, Neutrophils % ( Manual) 65, Lymphocytes % (Manual) 25, Monocytes % (Manual) 4, Eosinophils % ( Manual) 5H, Basophils % (Manual) 1, Band Neutrophils 0, Platelet Estimate Adequate, Platelet Morphology Normal, Hypochromasia 3+, Anisocytosis 2+, Hepatitis A IgM Antibody [Pending], Hepatitis B Surface Antigen [Pending], Hepatitis B Core IgM Antibody [Pending], Hepatitis C Antibody [Pending], HIV (1& 2) Antibody Rapid Negative Height (Feet): 5 Height (Inches): 7.00 Weight (Pounds): 130 General Appearance: no apparent distress Cardiovascular: normal rate Respiratory/Chest: decreased breath sounds Abdomen: soft Extremities: other - right arm dressed PEPE MONTERROSO May 21, 2016 10:00
[2016-05-21 12:00] VITALS: BP 149/88
--- NOTE | 2016-05-21 12:21 | Pulmonology Progress Note ---
Assessment/Plan Assessment/Plan ASSESSMENT bleeding from AV fistula acute DVT RUE R shunt thrombosis HTN urgency anemia of chronic renal disease coagulopathy alcoholic cirrhosis ESRD chronic pain syndrome Hx of ETOH abuse PLAN OF CARE tele bleeding stopped with pressure dressing s/p 1 u PRBCm HH remains low-7.0/22.7 s/p vit K and s/p 2 u FFP Arterial Dupelx Venous Duplex + acute DVT R axillary vascular surgery eval-appreciated elevated R forearm, sondra wrap stockinette to decrease edema insertion of tunneled hemodialysis permacath in am by IR HD after insertion BP management with CCB and BB, optimize further as needed check LFT, ammonia, Rifaximin resumed pain management nephro follows.HD as per PMD monitor renal parameters, rupert vascular surgeon cleared fro dc after insertion of HD tunneled cath and HD on Sunday outpatient thrombectomy vs insertion on new AV shunt in 7-10 days after edema subsided as outpatient GI prophylaxis heme/onco follows transfusion as per heme discretion continue EPO imaging of the liver nodule every six months per GI service to monitor nodule growth every six months, which is 12 mm, which will need to be followed up. peripheral smear shows no abnormalities patient does not appear to have any malignancy despite elevated tumor markers in the past - as per onco case discussed and evaluated by supervising physician Subjective Allergies: Coded Allergies: No Known Allergies (Unverified , 09/20/15) Objective Last 24 Hour Vital Signs Date Time Temp Pulse Resp B/P Pulse Ox O2 Delivery O2 Flow Rate FiO2 05/21/16 12:00 70 05/21/16 08:52 77 148/81 05/21/16 08:50 77 148/81 05/21/16 08:00 77 05/21/16 04:06 163/79 05/21/16 04:00 98.1 98 20 163/79 93 Room Air 05/21/16 03:42 75 05/21/16 00:00 98.2 78 20 139/84 93 Room Air 05/20/16 23:57 78 05/20/16 19:52 78 05/20/16 19:00 97.9 79 18 133/86 95 Room Air 05/20/16 17:55 78 119/73 05/20/16 16:00 79 05/20/16 13:46 78 119/73 Intake and Output 05/20/16 05/21/16 19:00 07:00 Intake Total 500 ml Balance 500 ml Intake Oral 500 ml # Voids 2 Objective General Appearance: WD/WN, no apparent distress, alert Lines, tubes and drains: peripheral HEENT: normocephalic, atraumatic, anicteric, mucous membranes moist Neck: non-tender, normal alignment, supple Respiratory/Chest: lungs clear, no respiratory distress, no accessory muscle use Cardiovascular/Chest: normal rate, regular rhythm - SR on tele , no JVD Abdomen: normal bowel sounds, non tender, soft Extremities: normal range of motion, no calf tenderness, normal capillary refill, other - RUE AV shunt with dressing C/D/I, R hand and R forearm with edema, cool to touch, + pulses/+ sensation /+ TTP Skin Exam: warm/dry Neurologic: student officer II-XII grossly normal, alert, oriented x 3, responsive Musculoskeletal: normal muscle bulk Laboratory Tests 05/20/16 17:25: Fibrinogen 358, Lactate Dehydrogenase 201, Carcinoembryonic Antigen 2.7, CA 125 Antigen [Pending] 05/21/16 04:00: White Blood Count 6.9, Red Blood Count 2.33L, Hemoglobin 7.2L, Hematocrit 23.3L , Mean Corpuscular Volume 100H, Mean Corpuscular Hemoglobin 30.9, Mean Corpuscular Hemoglobin Concent 31.0L, Red Cell Distribution Width 20.1H, Platelet Count 177, Mean Platelet Volume 5.6L, Neutrophils (%) (Auto) , Lymphocytes (%) (Auto) , Monocytes (%) (Auto) , Eosinophils (%) (Auto) , Basophils (%) (Auto) , Prothrombin Time 12.7H, Prothromb Time International Ratio 1.2H, Activated Partial Thromboplast Time 31, Sodium Level 141, Potassium Level 5.9H, Chloride Level 94L, Carbon Dioxide Level 33H, Anion Gap 14, Blood Urea Nitrogen 31H, Creatinine 4.3#H, Estimat Glomerular Filtration Rate 12.7, Glucose Level 79, Uric Acid 4.1, Calcium Level 8.4L, Phosphorus Level 7.3H, Magnesium Level 1.8, Iron Level 69, Total Iron Binding Capacity 155L, Percent Iron Saturation 45, Unsaturated Iron Binding 86L, Ferritin 1176H, Total Bilirubin 0.4, Gamma Glutamyl Transpeptidase 23, Aspartate Amino Transf (AST/ SGOT) 13, Alanine Aminotransferase (ALT/SGPT) 7, Alkaline Phosphatase 89, Ammonia 33, C-Reactive Protein, Quantitative 3.1H, Pro-B-Type Natriuretic Peptide 05532R, Total Protein 7.2, Albumin 3.0L, Globulin 4.2, Albumin/Globulin Ratio 0.7L, Alpha Fetoprotein [Pending] 05/21/16 08:39: White Blood Count 6.8, Red Blood Count 2.27L, Hemoglobin 7.0L, Hematocrit 22.7L , Mean Corpuscular Volume 100H, Mean Corpuscular Hemoglobin 30.7, Mean Corpuscular Hemoglobin Concent 30.7L, Red Cell Distribution Width 19.5H, Platelet Count 166, Mean Platelet Volume 5.4L, Neutrophils (%) (Auto) , Lymphocytes (%) (Auto) , Monocytes (%) (Auto) , Eosinophils (%) (Auto) , Basophils (%) (Auto) , Differential Total Cells Counted 100, Neutrophils % ( Manual) 65, Lymphocytes % (Manual) 25, Monocytes % (Manual) 4, Eosinophils % ( Manual) 5H, Basophils % (Manual) 1, Band Neutrophils 0, Platelet Estimate Adequate, Platelet Morphology Normal, Hypochromasia 3+, Anisocytosis 2+, Hepatitis A IgM Antibody [Pending], Hepatitis B Surface Antigen [Pending], Hepatitis B Core IgM Antibody [Pending], Hepatitis C Antibody [Pending], HIV (1& 2) Antibody Rapid Negative Current Medications Medications (Trade) Dose Ordered Sig/Ranjan Route PRN Reason Start Time Stop Time Status Last Admin Dose Admin Acetaminophen (Tylenol) 500 mg EVERY 6 HOURS PRN ORAL Mild Pain/Temp > 100.5 05/20/16 05:15 06/19/16 05:14 Amlodipine Besylate (Norvasc) 10 mg DAILY ORAL 05/20/16 09:00 06/19/16 08:59 05/21/16 08:50 Clonidine HCl (Catapres) 0.1 mg Q4H PRN ORAL For High Blood Pressure 05/20/16 05:15 06/19/16 05:14 05/21/16 04:06 Dextrose (Dextrose 50%) STAT PRN IV Hypoglycemia 05/20/16 05:15 06/19/16 05:14 Diphenhydramine HCl (Benadryl) 25 mg Q6H PRN ORAL Itching/Pruritis 05/20/16 05:15 06/19/16 05:14 05/21/16 08:55 Metoclopramide HCl (Reglan) 5 mg TID ORAL 05/21/16 13:00 06/20/16 12:59 Morphine Sulfate (Morphine Sulfate) 2 mg EVERY 4 HOURS PRN IVP Severe Pain (Pain Scale 7-10) 05/20/16 05:15 05/27/16 05:14 05/21/16 08:57 Ondansetron HCl (Zofran) 4 mg Q6H PRN IVP Nausea & Vomiting 05/20/16 05:15 06/19/16 05:14 Pantoprazole (Protonix) 40 mg DAILY ORAL 05/20/16 09:00 06/19/16 08:59 05/21/16 08:50 Polyethylene Glycol (Miralax) 17 gm DAILYPRN PRN ORAL Constipation 05/20/16 05:15 06/19/16 05:14 Propranolol HCl (Inderal) 25 mg TID ORAL 05/20/16 09:00 06/19/16 08:59 05/21/16 08:52 Rifaximin (Xifaxan) 550 mg EVERY 12 HOURS ORAL 05/20/16 09:00 05/27/16 08:59 05/21/16 08:50 Sevelamer Carbonate (Renvela) 1,600 mg THREE TIMES A DAY ORAL 05/21/16 13:00 06/20/16 12:59 Tramadol HCl (Ultram) 50 mg Q6H PRN ORAL Moderate Pain (Pain Scale 4-6) 05/20/16 05:15 05/27/16 05:14 05/20/16 09:08 Zolpidem Tartrate (Ambien) 5 mg HSPRN PRN ORAL Insomnia 05/20/16 22:15 06/19/16 22:14 05/20/16 22:54 Patti Johnston NP (Vanchtein) May 21, 2016 12:21
--- NOTE | 2016-05-21 13:18 | Internal Med Progress Note ---
Subjective Date of Service: May 21, 2016 Physician Name Javier Alvarez Attending Physician Jackson Albright MD Current Medications Medications (Trade) Dose Ordered Sig/Ranjan Route PRN Reason Start Time Stop Time Status Last Admin Dose Admin Acetaminophen (Tylenol) 500 mg EVERY 6 HOURS PRN ORAL Mild Pain/Temp > 100.5 05/20/16 05:15 06/19/16 05:14 Amlodipine Besylate (Norvasc) 10 mg DAILY ORAL 05/20/16 09:00 06/19/16 08:59 05/21/16 08:50 Clonidine HCl (Catapres) 0.1 mg Q4H PRN ORAL For High Blood Pressure 05/20/16 05:15 06/19/16 05:14 05/21/16 04:06 Dextrose (Dextrose 50%) STAT PRN IV Hypoglycemia 05/20/16 05:15 06/19/16 05:14 Diphenhydramine HCl (Benadryl) 25 mg Q6H PRN ORAL Itching/Pruritis 05/20/16 05:15 06/19/16 05:14 05/21/16 08:55 Metoclopramide HCl (Reglan) 5 mg TID ORAL 05/21/16 13:00 06/20/16 12:59 Morphine Sulfate (Morphine Sulfate) 2 mg EVERY 4 HOURS PRN IVP Severe Pain (Pain Scale 7-10) 05/20/16 05:15 05/27/16 05:14 05/21/16 08:57 Ondansetron HCl (Zofran) 4 mg Q6H PRN IVP Nausea & Vomiting 05/20/16 05:15 06/19/16 05:14 Pantoprazole (Protonix) 40 mg DAILY ORAL 05/20/16 09:00 06/19/16 08:59 05/21/16 08:50 Polyethylene Glycol (Miralax) 17 gm DAILYPRN PRN ORAL Constipation 05/20/16 05:15 06/19/16 05:14 Propranolol HCl (Inderal) 25 mg TID ORAL 05/20/16 09:00 06/19/16 08:59 05/21/16 08:52 Rifaximin (Xifaxan) 550 mg EVERY 12 HOURS ORAL 05/20/16 09:00 05/27/16 08:59 05/21/16 08:50 Sevelamer Carbonate (Renvela) 1,600 mg THREE TIMES A DAY ORAL 05/21/16 13:00 06/20/16 12:59 Tramadol HCl (Ultram) 50 mg Q6H PRN ORAL Moderate Pain (Pain Scale 4-6) 05/20/16 05:15 05/27/16 05:14 05/20/16 09:08 Zolpidem Tartrate (Ambien) 5 mg HSPRN PRN ORAL Insomnia 05/20/16 22:15 06/19/16 22:14 05/20/16 22:54 Allergies: Coded Allergies: No Known Allergies (Unverified , 09/20/15) ROS Limited/Unobtainable: No Constitutional: Reports: no symptoms HEENT: Reports: no symptoms Cardiovascular: Reports: no symptoms Respiratory: Reports: no symptoms Gastrointestinal/Abdominal: Reports: no symptoms Genitourinary: Reports: no symptoms Neurologic/Psychiatric: Reports: no symptoms Subjective 61 YO F admitted with dialysis shunt hemorrhage. Await vascular surgery consult. Cover for Int Med-Dr Albright. Objective Last Vital Signs Date Time Temp Pulse Resp B/P Pulse Ox O2 Delivery O2 Flow Rate FiO2 05/21/16 12:00 70 05/21/16 08:52 148/81 05/21/16 04:00 98.1 20 93 Room Air Laboratory Tests Test 05/20/16 17:25 05/21/16 04:00 05/21/16 08:39 Fibrinogen 358 mg/dL (200-400) Lactate Dehydrogenase 201 U/L (135-230) Carcinoembryonic Antigen 2.7 ng/mL CA 125 Antigen Pending White Blood Count 6.9 K/UL (4.8-10.8) 6.8 K/UL (4.8-10.8) Red Blood Count 2.33 M/UL (4.20-5.40) L 2.27 M/UL (4.20-5.40) L Hemoglobin 7.2 G/DL (12.0-16.0) L 7.0 G/DL (12.0-16.0) L Hematocrit 23.3 % (37.0-47.0) L 22.7 % (37.0-47.0) L Mean Corpuscular Volume 100 FL (80-99) H 100 FL (80-99) H Mean Corpuscular Hemoglobin 30.9 PG (27.0-31.0) 30.7 PG (27.0-31.0) Mean Corpuscular Hemoglobin Concent 31.0 G/DL (32.0-36.0) L 30.7 G/DL (32.0-36.0) L Red Cell Distribution Width 20.1 % (11.6-14.8) H 19.5 % (11.6-14.8) H Platelet Count 177 K/UL (150-450) 166 K/UL (150-450) Mean Platelet Volume 5.6 FL (6.5-10.1) L 5.4 FL (6.5-10.1) L Neutrophils (%) (Auto) % (45.0-75.0) % (45.0-75.0) Lymphocytes (%) (Auto) % (20.0-45.0) % (20.0-45.0) Monocytes (%) (Auto) % (1.0-10.0) % (1.0-10.0) Eosinophils (%) (Auto) % (0.0-3.0) % (0.0-3.0) Basophils (%) (Auto) % (0.0-2.0) % (0.0-2.0) Prothrombin Time 12.7 SEC (9.30-11.50) H Prothromb Time International Ratio 1.2 (0.9-1.1) H Activated Partial Thromboplast Time 31 SEC (23-33) Sodium Level 141 mEQ/L (135-145) Potassium Level 5.9 mEQ/L (3.4-4.9) H Chloride Level 94 mEQ/L (98-107) L Carbon Dioxide Level 33 mEQ/L (20-30) H Anion Gap 14 (5-15) Blood Urea Nitrogen 31 mg/dL (7-23) H Creatinine 4.3 mg/dL (0.5-0.9) #H Estimat Glomerular Filtration Rate 12.7 mL/min (>60) Glucose Level 79 mg/dL (74-106) Uric Acid 4.1 mg/dL (3.0-7.5) Calcium Level 8.4 mg/dL (8.6-10.2) L Phosphorus Level 7.3 mg/dL (2.5-4.8) H Magnesium Level 1.8 mg/dL (1.7-2.5) Iron Level 69 ug/dL (37-145) Total Iron Binding Capacity 155 ug/dL (250-400) L Percent Iron Saturation 45 % (15-50) Unsaturated Iron Binding 86 ug/dL (112-346) L Ferritin 1176 ng/mL (13-150) H Total Bilirubin 0.4 mg/dL (0.0-1.2) Gamma Glutamyl Transpeptidase 23 U/L (5-36) Aspartate Amino Transf (AST/SGOT) 13 U/L (5-40) Alanine Aminotransferase (ALT/SGPT) 7 U/L (3-33) Alkaline Phosphatase 89 U/L (35-104) Ammonia 33 umol/L (11-51) C-Reactive Protein, Quantitative 3.1 mg/dL (< 0.5) H Pro-B-Type Natriuretic Peptide 35188 pg/mL (0-125) H Total Protein 7.2 g/dL (6.6-8.7) Albumin 3.0 g/dL (3.5-5.2) L Globulin 4.2 g/dL Albumin/Globulin Ratio 0.7 (1.0-2.7) L Alpha Fetoprotein Pending Differential Total Cells Counted 100 Neutrophils % (Manual) 65 % (45-75) Lymphocytes % (Manual) 25 % (20-45) Monocytes % (Manual) 4 % (1-10) Eosinophils % (Manual) 5 % (0-3) H Basophils % (Manual) 1 % (0-2) Band Neutrophils 0 % (0-8) Platelet Estimate Adequate Platelet Morphology Normal Hypochromasia 3+ Anisocytosis 2+ Hepatitis A IgM Antibody Pending Hepatitis B Surface Antigen Pending Hepatitis B Core IgM Antibody Pending Hepatitis C Antibody Pending HIV (1&2) Antibody Rapid Negative (NEGATIVE) Intake and Output 05/20/16 05/21/16 19:00 07:00 Intake Total 500 ml Balance 500 ml Intake Oral 500 ml # Voids 2 Objective General Appearance: WD/WN, alert, mild distress EENT: PERRL/EOMI, normal ENT inspection Neck: non-tender, normal alignment, supple Cardiovascular: normal peripheral pulses, normal rate, regular rhythm, no gallop/murmur, no JVD Respiratory/Chest: chest wall non-tender, lungs clear, normal breath sounds, no respiratory distress, no accessory muscle use Abdomen: normal bowel sounds, non tender, soft, no organomegaly, no mass Extremities: normal range of motion, other - Dressing A/V graft 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 See vascular surgery consult. Tunneled Permacath scheduled for 05/22/16. (2) Anemia Assessment & Plan: Blood loss secondary to A/V graft hemorrhage. S/P transfurion 2 unit PRBC and 2 units FFP. See Hematology note. (3) ESRD (end stage renal disease) Assessment & Plan: See nephrology note. S/P dialysis 05/19/16. (4) HTN (hypertension) Assessment & Plan: Cont propranolol and norvasc. (5) Cirrhosis of liver (6) H/O ETOH abuse (7) Ascites (8) CHF (congestive heart failure) (9) Deep venous thrombosis of axillary vein Assessment & Plan: Hold anticoagulation due to hemorrrhage. See Hematology ( Bhavin) and vasc surgery (Lacho) consults. Status: progressing JAVIER ALVAREZ May 21, 2016 13:18
[2016-05-21 17:00] VITALS: BP 149/88
[2016-05-21 20:00] VITALS: BP 186/91
[2016-05-21] MEDS: Zolpidem 5mg tab ORAL PRN (21:36)
[2016-05-22] VITALS (16 sets, daily range): BP systolic 127–197; BP diastolic 81–111
[2016-05-22] MEDS: Morphine Sulfate 2mg/ml Inj IVP PRN ×4 (00:33→19:52)
[2016-05-22] MEDS ORDERED: Lidocaine 1% 10mg/ml/Epi 0.005mg/ml 30ml vial INJ ONE ×2 (06:00→13:00)
[2016-05-22] MEDS ORDERED: Heparin 2000 units/Ns 1000ml ONE (06:00)
[2016-05-22] MEDS ORDERED: Heparin Sod 1000 units/ml 10ml ONE (06:00)
[2016-05-22] MEDS ORDERED: Sodium Bicarbonate 8.4% 50ml Inj ONE (06:00)
[2016-05-22 08:20] LABS: BASOPHILS % (AUTO) 0.6 % (0.0-2.0); EOSINOPHILS % (AUTO) 6.7 % (0.0-3.0); LYMPHOCYTES % (AUTO) 27.3 % (20.0-45.0); MEAN CORPUSCULAR HEMOGLOBIN 30.5 PG (27.0-31.0); MEAN CORPUSCULAR HGB CONC 31.3 G/DL (32.0-36.0); MEAN CORPUSCULAR VOLUME 98 FL (80-99); MEAN PLATELET VOLUME 5.7 FL (6.5-10.1); MONOCYTES % (AUTO) 6.9 % (1.0-10.0); NEUTROPHILS % (AUTO) 58.6 % (45.0-75.0); PLATELET COUNT 166 K/UL (150-450); RED BLOOD COUNT 2.79 M/UL (4.20-5.40); RED CELL DISTRIBUTION WIDTH 19.6 % (11.6-14.8); WHITE BLOOD COUNT 7.5 K/UL (4.8-10.8)
[2016-05-22 08:23] LABS: INR 1.2 (0.9-1.1); PROTHROMBIN TIME 12.4 SEC (9.30-11.50)
[2016-05-22 08:33] LABS: ALBUMIN/GLOBULIN RATIO 0.6 (1.0-2.7); CALCIUM 8.1 mg/dL (8.6-10.2); CREATININE 5.7 mg/dL (0.5-0.9); GLOMERULAR FILTRATION RATE 9.2 mL/min (>60); PHOSPHORUS 7.1 mg/dL (2.5-4.8); POTASSIUM 5.1 mEQ/L (3.4-4.9); TOTAL PROTEIN 7.3 g/dL (6.6-8.7)
--- NOTE | 2016-05-22 08:42 | Diagnostic Imaging Report ---
Indications: Shortness of breath Technique: Portable AP chest Findings: Comparison: 05/03/16 Linear densities persist in the right lung base, left midlung, decreased. Bilateral interstitial prominence, cardiomegaly, pulmonary vascular redistribution have decreased. Bilateral costophrenic angle sharp. No new abnormality identified. IMPRESSION: Decrease in to resolution of previous bilateral congestive changes Decrease in but some persistence of bilateral subsegmental atelectasis No new abnormality
[2016-05-22] MEDS: Propranolol 40mg tab ORAL SCH ×3 (09:00→19:08)
[2016-05-22] MEDS: Rifaximin 550mg tab ORAL SCH ×2 (09:00→22:31)
--- NOTE | 2016-05-22 09:47 | GI Progress Note ---
Assessment/Plan Problems: (1) Abnormal LFTs ICD Codes: R79.89 - Other specified abnormal findings of blood chemistry SNOMED: 296642234 (2) H/O ETOH abuse ICD Codes: Z87.898 - Personal history of other specified conditions SNOMED: 547787494 (3) GERD (gastroesophageal reflux disease) ICD Codes: K21.9 - Gastro-esophageal reflux disease without esophagitis SNOMED: 626537179 (4) Cirrhosis of liver ICD Codes: K74.60 - Unspecified cirrhosis of liver SNOMED: 44997798 (5) Hypothyroidism ICD Codes: E03.9 - Hypothyroidism, unspecified SNOMED: 57048870 (6) Anemia ICD Codes: D64.9 - Anemia, unspecified SNOMED: 609397499 (7) Abdominal pain ICD Codes: R10.9 - Unspecified abdominal pain SNOMED: 96113034 Status: unchanged Status Narrative Discussed with Dr. Reyes. Assessment/Plan CA19-9 >> 78.93 (from previous admission 04/18/16) CEA >> 2.1 AFP >> WNL CA 125-5 >> 80.4 H Hep B core positive GGTP >> WNL s/p EGD>> biopsy results >> mild chronic antral gastritis fu paracentesis elevated ammonia >> lactulose renal diet bowel regime ppi Xifaxan, consider dc propranolol, pt does not have varices based on last EGD fu H&H, transfuse PRN fu trans vaginal biopsy fu bone survey out patient liver transplant referral +/- colonoscopy if needed Subjective Gastrointestinal/Abdominal: Reports: abdomen distended - ascites Objective Last 24 Hour Vital Signs Date Time Temp Pulse Resp B/P Pulse Ox O2 Delivery O2 Flow Rate FiO2 05/22/16 08:00 97.9 88 22 163/111 97 Room Air 05/22/16 04:00 98.1 86 18 165/97 93 Room Air 05/22/16 03:56 86 05/22/16 00:03 89 05/22/16 00:00 98.2 87 19 171/89 91 Room Air 05/21/16 20:00 98.2 86 18 186/91 93 Room Air 05/21/16 19:01 82 05/21/16 17:24 83 149/88 05/21/16 17:00 98.4 91 20 149/88 98 Room Air 05/21/16 16:00 81 05/21/16 13:16 79 165/83 05/21/16 12:00 97.7 81 20 149/88 98 Room Air 05/21/16 12:00 70 Intake and Output 05/21/16 05/22/16 19:00 07:00 Intake Total 510 ml Balance 510 ml Intake Oral 250 ml Blood Product 260 ml # Voids 1 4 # Bowel Movements 2 Laboratory Tests Test 05/22/16 07:20 White Blood Count 7.5 K/UL (4.8-10.8) Red Blood Count 2.79 M/UL (4.20-5.40) L Hemoglobin 8.5 G/DL (12.0-16.0) L Hematocrit 27.3 % (37.0-47.0) L Mean Corpuscular Volume 98 FL (80-99) Mean Corpuscular Hemoglobin 30.5 PG (27.0-31.0) Mean Corpuscular Hemoglobin Concent 31.3 G/DL (32.0-36.0) L Red Cell Distribution Width 19.6 % (11.6-14.8) H Platelet Count 166 K/UL (150-450) Mean Platelet Volume 5.7 FL (6.5-10.1) L Neutrophils (%) (Auto) 58.6 % (45.0-75.0) Lymphocytes (%) (Auto) 27.3 % (20.0-45.0) Monocytes (%) (Auto) 6.9 % (1.0-10.0) Eosinophils (%) (Auto) 6.7 % (0.0-3.0) H Basophils (%) (Auto) 0.6 % (0.0-2.0) Prothrombin Time 12.4 SEC (9.30-11.50) H Prothromb Time International Ratio 1.2 (0.9-1.1) H Activated Partial Thromboplast Time 31 SEC (23-33) Sodium Level 142 mEQ/L (135-145) Potassium Level 5.1 mEQ/L (3.4-4.9) H Chloride Level 95 mEQ/L (98-107) L Carbon Dioxide Level 32 mEQ/L (20-30) H Anion Gap 15 (5-15) Blood Urea Nitrogen 42 mg/dL (7-23) H Creatinine 5.7 mg/dL (0.5-0.9) H Estimat Glomerular Filtration Rate 9.2 mL/min (>60) Glucose Level 75 mg/dL (74-106) Calcium Level 8.1 mg/dL (8.6-10.2) L Phosphorus Level 7.1 mg/dL (2.5-4.8) H Total Bilirubin 0.4 mg/dL (0.0-1.2) Aspartate Amino Transf (AST/SGOT) 13 U/L (5-40) Alanine Aminotransferase (ALT/SGPT) 6 U/L (3-33) Alkaline Phosphatase 97 U/L (35-104) Total Protein 7.3 g/dL (6.6-8.7) Albumin 2.9 g/dL (3.5-5.2) L Globulin 4.4 g/dL Albumin/Globulin Ratio 0.6 (1.0-2.7) L Height (Feet): 5 Height (Inches): 7.00 Weight (Pounds): 141 General Appearance: no apparent distress, alert Cardiovascular: normal rate Respiratory/Chest: normal breath sounds Abdominal Exam: normal bowel sounds, non tender, soft, distended, ascites Autumn Lutz NShemar May 22, 2016 09:47
--- NOTE | 2016-05-22 10:49 | Internal Med Progress Note ---
Subjective Date of Service: May 22, 2016 Physician Name Javier Alvarez Attending Physician Jackson Albright MD Current Medications Medications (Trade) Dose Ordered Sig/Ranjan Route PRN Reason Start Time Stop Time Status Last Admin Dose Admin Acetaminophen (Tylenol) 500 mg EVERY 6 HOURS PRN ORAL Mild Pain/Temp > 100.5 05/20/16 05:15 06/19/16 05:14 Amlodipine Besylate (Norvasc) 10 mg DAILY ORAL 05/20/16 09:00 06/19/16 08:59 05/21/16 08:50 Clonidine HCl (Catapres) 0.1 mg Q4H PRN ORAL For High Blood Pressure 05/20/16 05:15 06/19/16 05:14 05/21/16 04:06 Dextrose (Dextrose 50%) STAT PRN IV Hypoglycemia 05/20/16 05:15 06/19/16 05:14 Diphenhydramine HCl (Benadryl) 25 mg Q6H PRN ORAL Itching/Pruritis 05/20/16 05:15 06/19/16 05:14 05/21/16 17:25 Metoclopramide HCl (Reglan) 5 mg TID ORAL 05/21/16 13:00 06/20/16 12:59 05/21/16 17:24 Morphine Sulfate (Morphine Sulfate) 2 mg EVERY 4 HOURS PRN IVP Severe Pain (Pain Scale 7-10) 05/20/16 05:15 05/27/16 05:14 05/22/16 04:34 Ondansetron HCl (Zofran) 4 mg Q6H PRN IVP Nausea & Vomiting 05/20/16 05:15 06/19/16 05:14 Pantoprazole (Protonix) 40 mg DAILY ORAL 05/20/16 09:00 06/19/16 08:59 05/21/16 08:50 Polyethylene Glycol (Miralax) 17 gm DAILYPRN PRN ORAL Constipation 05/20/16 05:15 06/19/16 05:14 Propranolol HCl (Inderal) 25 mg TID ORAL 05/20/16 09:00 06/19/16 08:59 05/21/16 17:24 Rifaximin (Xifaxan) 550 mg EVERY 12 HOURS ORAL 05/20/16 09:00 05/27/16 08:59 05/21/16 20:12 Sevelamer Carbonate (Renvela) 1,600 mg THREE TIMES A DAY ORAL 05/21/16 13:00 06/20/16 12:59 05/21/16 17:25 Tramadol HCl (Ultram) 50 mg Q6H PRN ORAL Moderate Pain (Pain Scale 4-6) 05/20/16 05:15 05/27/16 05:14 05/20/16 09:08 Zolpidem Tartrate (Ambien) 5 mg HSPRN PRN ORAL Insomnia 05/20/16 22:15 06/19/16 22:14 05/21/16 21:36 Allergies: Coded Allergies: No Known Allergies (Unverified , 09/20/15) ROS Limited/Unobtainable: No Constitutional: Reports: no symptoms HEENT: Reports: no symptoms Cardiovascular: Reports: no symptoms Respiratory: Reports: no symptoms Gastrointestinal/Abdominal: Reports: no symptoms Genitourinary: Reports: no symptoms Neurologic/Psychiatric: Reports: no symptoms Subjective 61 YO F admitted with dialysis shunt hemorrhage. Appreciate vascular surgery consult. Await permacath placement today. Cover for Int Med-Dr Albright. Objective Last Vital Signs Date Time Temp Pulse Resp B/P Pulse Ox O2 Delivery O2 Flow Rate FiO2 05/22/16 08:00 97.9 88 22 163/111 97 Room Air Laboratory Tests Test 05/22/16 07:20 White Blood Count 7.5 K/UL (4.8-10.8) Red Blood Count 2.79 M/UL (4.20-5.40) L Hemoglobin 8.5 G/DL (12.0-16.0) L Hematocrit 27.3 % (37.0-47.0) L Mean Corpuscular Volume 98 FL (80-99) Mean Corpuscular Hemoglobin 30.5 PG (27.0-31.0) Mean Corpuscular Hemoglobin Concent 31.3 G/DL (32.0-36.0) L Red Cell Distribution Width 19.6 % (11.6-14.8) H Platelet Count 166 K/UL (150-450) Mean Platelet Volume 5.7 FL (6.5-10.1) L Neutrophils (%) (Auto) 58.6 % (45.0-75.0) Lymphocytes (%) (Auto) 27.3 % (20.0-45.0) Monocytes (%) (Auto) 6.9 % (1.0-10.0) Eosinophils (%) (Auto) 6.7 % (0.0-3.0) H Basophils (%) (Auto) 0.6 % (0.0-2.0) Prothrombin Time 12.4 SEC (9.30-11.50) H Prothromb Time International Ratio 1.2 (0.9-1.1) H Activated Partial Thromboplast Time 31 SEC (23-33) Sodium Level 142 mEQ/L (135-145) Potassium Level 5.1 mEQ/L (3.4-4.9) H Chloride Level 95 mEQ/L (98-107) L Carbon Dioxide Level 32 mEQ/L (20-30) H Anion Gap 15 (5-15) Blood Urea Nitrogen 42 mg/dL (7-23) H Creatinine 5.7 mg/dL (0.5-0.9) H Estimat Glomerular Filtration Rate 9.2 mL/min (>60) Glucose Level 75 mg/dL (74-106) Calcium Level 8.1 mg/dL (8.6-10.2) L Phosphorus Level 7.1 mg/dL (2.5-4.8) H Total Bilirubin 0.4 mg/dL (0.0-1.2) Aspartate Amino Transf (AST/SGOT) 13 U/L (5-40) Alanine Aminotransferase (ALT/SGPT) 6 U/L (3-33) Alkaline Phosphatase 97 U/L (35-104) Total Protein 7.3 g/dL (6.6-8.7) Albumin 2.9 g/dL (3.5-5.2) L Globulin 4.4 g/dL Albumin/Globulin Ratio 0.6 (1.0-2.7) L Microbiology Date/Time Source Procedure Growth Status 05/20/16 01:48 Nasal Nares MRSA Culture - Final Staphylococcus Aureus - Mrsa Complete Intake and Output 05/21/16 05/22/16 19:00 07:00 Intake Total 510 ml Balance 510 ml Intake Oral 250 ml Blood Product 260 ml # Voids 1 4 # Bowel Movements 2 Objective General Appearance: WD/WN, alert, mild distress EENT: PERRL/EOMI, normal ENT inspection Neck: non-tender, normal alignment, supple Cardiovascular: normal peripheral pulses, normal rate, regular rhythm, no gallop/murmur, no JVD Respiratory/Chest: chest wall non-tender, lungs clear, normal breath sounds, no respiratory distress, no accessory muscle use Abdomen: normal bowel sounds, non tender, soft, no organomegaly, no mass Extremities: normal range of motion, other - Dressing A/V graft 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 See vascular surgery consult. Tunneled Permacath scheduled for 05/22/16. (2) Anemia Assessment & Plan: Blood loss secondary to A/V graft hemorrhage. S/P transfurion 2 unit PRBC and 2 units FFP. See Hematology note. (3) ESRD (end stage renal disease) Assessment & Plan: See nephrology note. Hemodialysis today 05/22/16 after permacath. (4) HTN (hypertension) Assessment & Plan: Cont propranolol and norvasc. (5) Cirrhosis of liver (6) H/O ETOH abuse (7) Ascites (8) CHF (congestive heart failure) (9) Deep venous thrombosis of axillary vein Assessment & Plan: Hold anticoagulation due to hemorrrhage. See Hematology ( Bhavin) and vasc surgery (Lacho) consults. Status: progressing JAVIER ALVAREZ May 22, 2016 10:49
--- NOTE | 2016-05-22 11:04 | Diagnostic Imaging Report ---
Indication: Abdominal pain and distention Technique: Santos-scale and duplex images of the upper abdomen were obtained Comparison: 09/22/2015 Findings: There is a moderate amount of ascites fluid present. Gallbladder demonstrates no stones. There is gallbladder wall thickening, gallbladder wall measuring 5 mm thick.. Sonographic Melendez's sign is negative. Common bile duct measures 7 mm in diameter. No intrahepatic biliary ductal dilatation. Liver demonstrates mildly increased echogenicity, no focal abnormality. Portal vein and hepatic veins are patent.. Pancreas is unremarkable. Spleen is unremarkable. Left kidney measures 8.9 cm in length. Right kidney measures 8.9 cm length. Both kidneys demonstrate increased echogenicity. There is no hydronephrosis. No focal abnormality. There is a left pleural effusion present. Previously demonstrated right pleural effusion is not evident on this exam. Abdominal aorta is partially obscured by bowel gas, visualized portions are non-aneurysmal. Impression: Ascites, also previously described on very CT scan although not on previous 09/2015 ultrasound. Left pleural effusion. Previously demonstrated right pleural effusion not evident currently Negative for gallstones. Gallbladder wall thickening is probably secondary to derangements causing ascites and pleural fluid, but acute acalculous cholecystitis not completely excludable. Consider nuclear medicine hepatobiliary scan if there is high clinical suspicion The common bile duct is slightly ectatic, but much less so than on the prior study. Bilateral echogenic kidneys, consistent with medical renal disease, also previously described Note incomplete visualization of the distal abdominal aorta Note that the liver lesion described on prior CT scan is not evident on this study
--- NOTE | 2016-05-22 12:48 | Pre-Procedure Note/Attestation ---
Pre-Procedure Note/Attestation Complete Prior to Procedure Planned Procedure: left Procedure Narrative: permacath Indications for Procedure Pre-Operative Diagnosis: ESRD Attestation I attest that I discussed the nature of the procedure; its benefits; risks and complications; and alternatives (and the risks and benefits of such alternatives ), prior to the procedure, with the patient (or the patient's legal life assurance representative). I attest that, if there was a reasonable possibility of needing a blood transfusion, the patient (or the patient's legal life assurance representative) was given the [facility] standardized written summary, pursuant to the Deion Ericka Blood Safety Act ([place] Health and Safety Code # 1645, as amended). I attest that I re-evaluated the patient just prior to the surgery and that there has been no change in the patient's H&P, except as documented below: TATO CHOE M.D. May 22, 2016 12:48
--- NOTE | 2016-05-22 12:49 | Moderate Sedation - Procedural ---
Moderate Sedation HPI Home Medication Reported Medications Zolpidem Tartrate* (ZOLPIDEM TARTRATE*) 5 Mg Tablet, 5 MG ORAL BEDTIME Y for Insomnia, TAB 0 Refills 05/08/16 Propranolol Hcl* (INDERAL*) 40 Mg Tablet, 40 MG ORAL Q8HR, #90 TAB 0 Refills 05/08/16 Polyethylene Glycol 3350* (MIRALAX*) 17 Gm Powd.pack, 17 GM ORAL DAILY Y for Constipation, PACKET 05/08/16 Pantoprazole* (PANTOPRAZOLE*) 40 Mg Tablet.dr, 40 MG ORAL DAILY, TAB 05/08/16 Ondansetron* (ZOFRAN*) 4 Mg/2 Ml Vial, 4 MG IVP Q6H Y for Nausea & Vomiting, VIAL 05/08/16 Morphine Sulfate (Morphine Sulfate 1 mg/ml Vial) 30 Mg/30 Ml K 12 Principal.vial, 1 MG IVP Q4HR Y for For Pain, SYR 05/08/16 Ipratropium Chalmers 0.5MG/2.5ML (IPRATROPIUM BROMIDE 0.5MG/2.5ML) 0.2 Mg/1 Ml Solution, 3 ML HHN Q4HR Y for Shortness of Breath, #28 EA 05/08/16 Heparin Sod (Porcine) (HEPARIN SODIUM*) 5 000/1 Ml Vial, 5000 UNITS SUBQ EVERY 12 HOURS, VIAL 05/08/16 Ergocalciferol (Vitamin D2)* (VITAMIN D*) 50,000 Unit Capsule, 56825 UNIT ORAL ONCE A WEEK, CAP 05/08/16 Clonidine Hcl* (CATAPRES*) 0.1 Mg Tablet, 0.1 MG ORAL EVERY 4 HOURS Y for For High Blood Pressure, TAB 05/08/16 Aspirin Ec* (ASPIRIN EC*) 81 Mg Tablet.dr, 81 MG ORAL DAILY, TAB 05/08/16 Acetaminophen* (TYLENOL EXTRA STRENGTH*) 500 Mg Tablet, 650 MG ORAL Q4HR Y for fever, TAB 0 Refills 05/08/16 Hydralazine Hcl* (HYDRALAZINE HCL*) 50 Mg Tablet, 50 MG ORAL EVERY 8 HOURS, TAB 04/17/16 Cyanocobalamin (Vitamin B-12)* (VITAMIN B-12*) 500 Mcg Tablet, 1000 MCG ORAL DAILY, #30 TAB 0 Refills 04/17/16 Clonidine Hcl* (CATAPRES*) 0.1 Mg Tablet, 0.1 MG ORAL EVERY 6 HOURS, TAB 04/17/16 Tramadol Hcl* (ULTRAM*) 50 Mg Tablet, 50 MG ORAL Q6H Y for For Pain, #30 TAB 0 Refills 04/17/16 Trazodone Hcl* (DESYREL*) 100 Mg Tablet, 100 MG ORAL BEDTIME, TAB 04/17/16 Ondansetron Odt* (ZOFRAN ODT*) 4 Mg Tab.rapdis, 4 MG ORAL Q6H Y for Nausea & Vomiting, #30 TAB 04/17/16 Aspirin* (ASPIRIN*) 325 Mg Tablet, 325 MG ORAL DAILY, TAB 04/17/16 Thiamine Hcl* (VITAMIN B-1*) 100 Mg Tablet, 100 MG ORAL DAILY, #30 TAB 0 Refills 09/20/15 Cinacalcet Hcl (SENSIPAR) 90 Mg Tablet, 90 MG PO DAILY, TAB 09/20/15 Calcitriol (ROCALTROL) 0.25 Mcg Capsule, 0.25 MCG PO DAILY, CAP 09/20/15 Calcitriol (ROCALTROL) 0.25 Mcg Capsule, 0.25 MCG PO, CAP 09/20/15 Sevelamer Hcl (RENAGEL) 800 Mg Tablet, 800 MG ORAL THREE TIMES A DAY, #90 TAB 0 Refills 09/20/15 Metoclopramide Hcl* (REGLAN*) 5 Mg Tablet, 5 MG ORAL EVERY 6 HOURS, TAB 09/20/15 Omeprazole (OMEPRAZOLE) 20 Mg Capsule.dr, 20 MG ORAL DAILY, CAP 09/20/15 Insulin Aspart* (NOVOLOG*) 100 Unit/1 Ml Insuln.pen, 0 SUBQ, #1 EA 0 Refills 09/20/15 Mag Hydrox/Al Hydrox/Simeth (Maalox Advanced Suspension) 355 Ml Oral.susp, 30 ML PO EVERY 12 HOURS, ML 09/20/15 Melatonin (MELATONIN 3 MG TABLET) 1 Each Tablet, 1 TAB ORAL BEDTIME Y for Insomnia, TAB 09/20/15 Enoxaparin* (LOVENOX*) 30 Mg/0.3 Ml Inj, 30 MG SUBQ DAILY, #30 EA 0 Refills 09/20/15 Diphenoxylate HCl/Atropine (Lomotil Tablet) 1 Each Tablet, 1 EACH PO Q4HR, TAB 09/20/15 Lisinopril (LISINOPRIL*) 5 Mg Tablet, 5 MG ORAL DAILY, TAB 09/20/15 Lactulose (LACTULOSE*) 20 Gm/30 Ml Solution, 30 ML ORAL Q8HR, ML 0 Refills 09/20/15 Cephalexin* (KEFLEX*) 250 Mg Capsule, 250 MG ORAL BID, #28 CAP 0 Refills 09/20/15 Hydrocodone Bit/Acetaminophen 5-325* (NORCO 5-325*) 1 Each Tablet, 1 TAB ORAL Q4H Y for For Pain, TAB 0 Refills 09/20/15 Guaifenesin/Dextromethorphan (GUAIFENESIN-DM SOLUTION) 5 Ml Liquid, 10 ML PO Q4HR, ML 09/20/15 Docusate Sodium* (DOCUSIL*) 100 Mg Capsule, 100 MG ORAL Q12HR, CAP 09/20/15 Hydromorphone Hcl (DILAUDID) 1 Mg/1 Ml Liquid, 1 MG PO NEEDED, ML 09/20/15 Dextrose 50 % in Water (Dextrose 50%-Water Syringe) 50 Ml Syringe, 50 ML IV Y for Hypoglycemia, EA 09/20/15 Losartan Potassium (COZAAR) 100 Mg Tablet, 100 MG ORAL DAILY, TAB 09/20/15 Clonidine Hcl* (CATAPRES*) 0.1 Mg Tablet, 0.1 MG ORAL EVERY 6 HOURS Y for AD, TAB 09/20/15 Doxazosin Mesylate* (CARDURA*) 1 Mg Tablet, 2 MG ORAL DAILY, TAB 09/20/15 Calcium Carbonate/Vitamin D3 (CALCIUM 600 + VIT D 400 TABLET) 1 Each Tablet, 1 EACH PO, TAB 09/20/15 Diphenhydramine Hcl* (BENADRYL*) 25 Mg Capsule, 25 MG ORAL Q6H Y for Itching, CAP 09/20/15 Lorazepam* (ATIVAN*) 0.5 Mg Tablet, 0.5 MG ORAL Q4HR Y for AD, TAB 09/20/15 Amlodipine Besylate* (AMLODIPINE BESYLATE*) 10 Mg Tablet, 10 MG ORAL DAILY, TAB 09/20/15 Acetaminophen (Acetaminophen) 650 Mg/20.3 Ml Solution, 650 MG ORAL Q6H Y for Prn Headache/Temp > 101, ML 0 Refills 09/20/15 Patient History Allergies: Coded Allergies: No Known Allergies (Unverified , 09/20/15) PAST MEDICAL HISTORY: Past Surgeries: Social History: Pre-Procedural Mod Sedation Date: May 22, 2016 Pre-Assessment Time: 12:00 Pre-Sedation Assessment: Elective Airway Assessment (Malampati): III Evaluation Hx of untoward rxns to mod sed: No Procedures/Plans: Radiology Plan for Moderate Sedation: Midazolam, Fentanyl Informed Consent The nature of the procedure/sedation; its benefits; risks and complications; and alternatives (and the risks and benefits of such alternatives) were discussed with the patient (or their legal food products sales representative), prior to the procedure. All questions were answered to the patient's (or their legal food products sales representative's) satisfaction and the patient (or their legal food products sales representative) gave informed consent to the procedure. I attest that I re-evaluated the patient just prior to the surgery and that there has been no change in the patient's H&P, except as documented below: Post Procedure Assessment Post Procedure TIme: 13:45 Communication: No Apparent Limitation Mental Status: Awake Respiration: Unlabored Skin Condition: WNL Adomen: WNL Nausea: NO Vomiting: NO TATO CHOE M.D. May 22, 2016 12:49
[2016-05-22] MEDS ORDERED: Heparin Sod 1000 units/ml 10ml IV ONE (13:00)
[2016-05-22] MEDS ORDERED: Sodium Bicarbonate 8.4% 50ml Inj IV ONE (13:00)
[2016-05-22] MEDS ORDERED: ceFAZolin sod 1 GM in NS 55 ML IV ONE (13:30)
--- NOTE | 2016-05-22 14:33 | General Progress Note ---
Assessment/Plan Status: stable Status Narrative Hgb higher- Due Permacath and Dialysis Assessment/Plan status: ESRD- hemmorrhage from right arm graft Anemia Ascitis- DM HTN At Fib Plan: Vascular surgical eval noted Permacath and dialysis optimize cardiac and pulmonary status- BP meds adjustment- 2 D Echo previous admission: Left ventricular ejection fraction estimated to be 70 %. Monitor lytes and renal parameters- Per consultants Transfused Paracynthesis, Ascitis aspiration as needed Subjective ROS Limited/Unobtainable: No Constitutional: Reports: malaise Allergies: Coded Allergies: No Known Allergies (Unverified , 09/20/15) Objective Last 24 Hour Vital Signs Date Time Temp Pulse Resp B/P Pulse Ox O2 Delivery O2 Flow Rate FiO2 05/22/16 14:28 181/96 05/22/16 13:00 85 151/81 05/22/16 11:30 97.9 85 21 151/81 95 Room Air 05/22/16 08:00 97.9 88 22 163/111 97 Room Air 05/22/16 08:00 88 05/22/16 04:00 98.1 86 18 165/97 93 Room Air 05/22/16 03:56 86 05/22/16 00:03 89 05/22/16 00:00 98.2 87 19 171/89 91 Room Air 05/21/16 20:00 98.2 86 18 186/91 93 Room Air 05/21/16 19:01 82 05/21/16 17:24 83 149/88 05/21/16 17:00 98.4 91 20 149/88 98 Room Air 05/21/16 16:00 81 Intake and Output 05/21/16 05/22/16 19:00 07:00 Intake Total 510 ml Balance 510 ml Intake Oral 250 ml Blood Product 260 ml # Voids 1 4 # Bowel Movements 2 Laboratory Tests 05/22/16 07:20: White Blood Count 7.5, Red Blood Count 2.79L, Hemoglobin 8.5L, Hematocrit 27.3L , Mean Corpuscular Volume 98, Mean Corpuscular Hemoglobin 30.5, Mean Corpuscular Hemoglobin Concent 31.3L, Red Cell Distribution Width 19.6H, Platelet Count 166, Mean Platelet Volume 5.7L, Neutrophils (%) (Auto) 58.6, Lymphocytes (%) (Auto) 27.3, Monocytes (%) (Auto) 6.9, Eosinophils (%) (Auto) 6.7H, Basophils (%) (Auto) 0.6, Prothrombin Time 12.4H, Prothromb Time International Ratio 1.2H, Activated Partial Thromboplast Time 31, Sodium Level 142, Potassium Level 5.1H, Chloride Level 95L, Carbon Dioxide Level 32H, Anion Gap 15, Blood Urea Nitrogen 42H, Creatinine 5.7H, Estimat Glomerular Filtration Rate 9.2, Glucose Level 75, Calcium Level 8.1L, Phosphorus Level 7.1H, Total Bilirubin 0.4, Aspartate Amino Transf (AST/SGOT) 13, Alanine Aminotransferase ( ALT/SGPT) 6, Alkaline Phosphatase 97, Total Protein 7.3, Albumin 2.9L, Globulin 4.4, Albumin/Globulin Ratio 0.6L Height (Feet): 5 Height (Inches): 1.00 Weight (Pounds): 129 General Appearance: no apparent distress Respiratory/Chest: decreased breath sounds Abdomen: soft Objective other PE not changed PEPE MONTERROSO May 22, 2016 14:33
[2016-05-22] MEDS ORDERED: Midazolam 2mg/2ml Inj IVP ONE (15:45)
[2016-05-22] MEDS ORDERED: fentaNYL 100 mcg/2 mL IV ONE (15:45)
--- NOTE | 2016-05-22 16:38 | Diagnostic Imaging Report ---
Indications: Needs long-term dialysis access Technique: Patient given IV Ancef . Total sterile technique, including sterile gloves, hand hygiene, hat, mask,, sterile gown, large sterile drape, and preparation with 2% chlorhexidine utilized. Local anesthesia with 1% lidocaine. Under real-time ultrasound guidance, puncture left internal jugular vein using 21-gauge micropuncture needle, passage 0.018 guidewire, exchange for 4 Vietnamese micropuncture introducer. The guidewire was used to measure the appropriate catheter length, and was removed. The sheath was left in place. The subcutaneous tract was then anesthetized with 1% lidocaine. A chest dermatotomy was made . The tunneling device was used to pull a 14.5 Vietnamese 27 cm AngioDynamics tunneled dialysis catheter through the subcutaneous tunnel to the neck dermatotomy. A guidewire was passed through the neck introducer into the inferior vena cava, and serial dilators were passed over it, followed by the introduction of a 14.5 Vietnamese AirGuard peel-away sheath. The catheter was then introduced into the sheath, the peel-away sheath was removed. Digital radiograph documents satisfactory catheter tip position in the high right atrium, no kinking at the insertion site. Both catheter ports aspirated and flushed. Catheter was fixed to the skin. Patient tolerated procedure well without immediate complication. Total fluoroscopy time 1.9 minutes. Total dose area product 26 dGycm2 . Comparison: None Findings: Completion radiograph documents satisfactory position and course of the catheter, catheter tip at the high right atrium. Impression: Successful placement of right transjugular tunneled dialysis catheter, as described above
--- NOTE | 2016-05-22 20:40 | General Progress Note ---
Assessment/Plan Assessment/Plan ASSESSMENT: 1. Right upper extremitiy dvt - at this time, coumadin on hold given recent hemorrhage 2. Anemia on chronic kidney disease. ferritin 706, esr elevated, on epo 3. 12 mm nodule in the liver 4. Elevated tumor markers. The patient with a history of elevated tumor markers, CA-199 and CA-125 were elevated. An imaging CT scan shows potential sclerosis versus metastatic neoplasm, metabolic abnormality, in addition 12 mm enhancing nodule noted nonspecific and liver, which will need to be followed up. Skeletal survey nonspecific and to obtain NM scan shows no evidence of malignancy. Ascitic results show no abnormalities 5. History of alcohol abuse. 6. Abdominal pain. 7. Atelectasis. 8. Pulmonary edema. 9. Ascites. RECOMMENDATION: 1. Holding coumadin given anemia 2. Continue epogen sq 3. Imaging of the liver nodule every six months per GI service to monitor nodule growth every six months, which is 12 mm, which will need to be followed up 4. Peripheral smear shows no abnormalities 5. Hemodialysis three times a week. 6. Appreciate pulm and nephro recs 7. Does not appear patient has any malignancy 8. Follow from heme perspective Subjective Constitutional: Reports: no symptoms HEENT: Reports: no symptoms Cardiovascular: Reports: no symptoms Respiratory: Reports: no symptoms Gastrointestinal/Abdominal: Reports: poor appetite Genitourinary: Reports: no symptoms Neurologic/Psychiatric: Reports: no symptoms Endocrine: Reports: no symptoms Hematologic/Lymphatic: Reports: anemia Allergies: Coded Allergies: No Known Allergies (Unverified , 09/20/15) Subjective stable, no events, no fevers or chills, holding anticoag, permacath inserted Objective Last 24 Hour Vital Signs Date Time Temp Pulse Resp B/P Pulse Ox O2 Delivery O2 Flow Rate FiO2 05/22/16 19:08 85 173/101 05/22/16 19:08 173/101 05/22/16 18:49 Room Air 05/22/16 16:26 97.7 05/22/16 16:00 97.7 85 19 173/101 96 Room Air 05/22/16 15:15 Room Air 05/22/16 14:58 90 127/97 05/22/16 14:45 88 172/105 05/22/16 14:30 85 164/101 05/22/16 14:28 181/96 05/22/16 14:15 97.5 79 20 181/96 95 Room Air 05/22/16 14:00 78 23 165/95 100 Nasal Cannula 3.0 05/22/16 13:55 79 25 162/92 100 Nasal Cannula 3.0 05/22/16 13:50 77 15 170/96 100 Nasal Cannula 3.0 05/22/16 13:45 82 20 167/92 100 Nasal Cannula 3.0 05/22/16 13:40 80 22 156/95 100 Nasal Cannula 3.0 05/22/16 13:35 80 20 169/96 100 Nasal Cannula 3.0 05/22/16 13:00 85 151/81 05/22/16 11:30 97.9 85 21 151/81 95 Room Air 05/22/16 08:00 97.9 88 22 163/111 97 Room Air 05/22/16 08:00 88 05/22/16 04:00 98.1 86 18 165/97 93 Room Air 05/22/16 03:56 86 05/22/16 00:03 89 05/22/16 00:00 98.2 87 19 171/89 91 Room Air Intake and Output 05/21/16 05/22/16 19:00 07:00 Intake Total 510 ml Balance 510 ml Intake Oral 250 ml Blood Product 260 ml # Voids 1 4 # Bowel Movements 2 Laboratory Tests 05/22/16 07:20: White Blood Count 7.5, Red Blood Count 2.79L, Hemoglobin 8.5L, Hematocrit 27.3L , Mean Corpuscular Volume 98, Mean Corpuscular Hemoglobin 30.5, Mean Corpuscular Hemoglobin Concent 31.3L, Red Cell Distribution Width 19.6H, Platelet Count 166, Mean Platelet Volume 5.7L, Neutrophils (%) (Auto) 58.6, Lymphocytes (%) (Auto) 27.3, Monocytes (%) (Auto) 6.9, Eosinophils (%) (Auto) 6.7H, Basophils (%) (Auto) 0.6, Prothrombin Time 12.4H, Prothromb Time International Ratio 1.2H, Activated Partial Thromboplast Time 31, Sodium Level 142, Potassium Level 5.1H, Chloride Level 95L, Carbon Dioxide Level 32H, Anion Gap 15, Blood Urea Nitrogen 42H, Creatinine 5.7H, Estimat Glomerular Filtration Rate 9.2, Glucose Level 75, Calcium Level 8.1L, Phosphorus Level 7.1H, Total Bilirubin 0.4, Aspartate Amino Transf (AST/SGOT) 13, Alanine Aminotransferase ( ALT/SGPT) 6, Alkaline Phosphatase 97, Total Protein 7.3, Albumin 2.9L, Globulin 4.4, Albumin/Globulin Ratio 0.6L Height (Feet): 5 Height (Inches): 1.00 Weight (Pounds): 129 EENT: TMs normal Neck: normal alignment Cardiovascular: normal rate Respiratory/Chest: lungs clear Abdomen: non tender Extremities: non-tender Edema: 1+ Leg (L), 1+ Leg (R) Edema: mild edema Neurologic: alert Skin: warm/dry Fabrizio Tobar May 22, 2016 20:40
[2016-05-23] MEDS: Morphine Sulfate 2mg/ml Inj IVP PRN ×6 (00:07→22:55)
--- NOTE | 2016-05-23 00:08 | Cardiology Report ---
APPROVED REPORT EKG Measurement Heart [id number] PA [id number] Normal sinus rhythm Cannot rule out Anterior infarct, age undetermined Abnormal ECG
[2016-05-23 00:12] VITALS: BP 156/99
[2016-05-23 04:13] VITALS: BP 135/86
[2016-05-23 04:32] LABS: BASOPHILS % (AUTO) 0.6 % (0.0-2.0); EOSINOPHILS % (AUTO) 6.5 % (0.0-3.0); LYMPHOCYTES % (AUTO) 24.8 % (20.0-45.0); MEAN CORPUSCULAR HEMOGLOBIN 31.2 PG (27.0-31.0); MEAN CORPUSCULAR HGB CONC 32.3 G/DL (32.0-36.0); MEAN CORPUSCULAR VOLUME 97 FL (80-99); MEAN PLATELET VOLUME 5.8 FL (6.5-10.1); MONOCYTES % (AUTO) 7.1 % (1.0-10.0); NEUTROPHILS % (AUTO) 61.1 % (45.0-75.0); PLATELET COUNT 137 K/UL (150-450); RED BLOOD COUNT 2.81 M/UL (4.20-5.40); RED CELL DISTRIBUTION WIDTH 18.9 % (11.6-14.8); WHITE BLOOD COUNT 6.8 K/UL (4.8-10.8)
[2016-05-23 04:39] LABS: INR 1.2 (0.9-1.1); PROTHROMBIN TIME 12.6 SEC (9.30-11.50)
[2016-05-23 04:47] LABS: ALBUMIN/GLOBULIN RATIO 0.5 (1.0-2.7); CALCIUM 8.1 mg/dL (8.6-10.2); CREATININE 3.5 mg/dL (0.5-0.9); GLOMERULAR FILTRATION RATE 16.2 mL/min (>60); POTASSIUM 4.4 mEQ/L (3.4-4.9); TOTAL PROTEIN 7.1 g/dL (6.6-8.7)
[2016-05-23 08:00] VITALS: BP 132/81
[2016-05-23] MEDS: Rifaximin 550mg tab ORAL SCH ×2 (08:28→21:19)
[2016-05-23] MEDS: Propranolol 40mg tab ORAL SCH ×3 (08:35→18:13)
--- NOTE | 2016-05-23 09:35 | GI Progress Note ---
Assessment/Plan Problems: (1) Abnormal LFTs ICD Codes: R79.89 - Other specified abnormal findings of blood chemistry SNOMED: 272444899 (2) H/O ETOH abuse ICD Codes: Z87.898 - Personal history of other specified conditions SNOMED: 427141719 (3) GERD (gastroesophageal reflux disease) ICD Codes: K21.9 - Gastro-esophageal reflux disease without esophagitis SNOMED: 022429669 (4) Cirrhosis of liver ICD Codes: K74.60 - Unspecified cirrhosis of liver SNOMED: 98731095 (5) Hypothyroidism ICD Codes: E03.9 - Hypothyroidism, unspecified SNOMED: 61264718 (6) Anemia ICD Codes: D64.9 - Anemia, unspecified SNOMED: 551638361 (7) Abdominal pain ICD Codes: R10.9 - Unspecified abdominal pain SNOMED: 17529212 Status: unchanged Status Narrative Discussed with Dr. Reyes. Assessment/Plan CA19-9 >> 78.93 (from previous admission 04/18/16) CEA >> 2.1 AFP >> WNL CA 125-5 >> 80.4 H Hep B core positive GGTP >> WNL s/p EGD>> biopsy results >> mild chronic antral gastritis abd U/S reviewed >> left pleural effusion, see full report. fu paracentesis elevated ammonia >> lactulose renal diet bowel regime ppi Xifaxan, consider dc propranolol, pt does not have varices based on last EGD fu H&H, transfuse PRN fu trans vaginal biopsy fu bone survey out patient liver transplant referral +/- colonoscopy if needed Subjective Gastrointestinal/Abdominal: Reports: abdomen distended - ascities Objective Last 24 Hour Vital Signs Date Time Temp Pulse Resp B/P Pulse Ox O2 Delivery O2 Flow Rate FiO2 05/23/16 08:35 84 168/91 05/23/16 08:35 84 168/91 05/23/16 08:00 98.0 78 17 132/81 98 Room Air 05/23/16 04:13 98.5 81 18 135/86 96 Room Air 05/23/16 04:00 83 05/23/16 00:12 98.6 83 19 156/99 97 Room Air 05/23/16 00:00 83 05/22/16 20:22 97.0 05/22/16 20:00 85 05/22/16 20:00 97.0 88 20 197/103 96 Room Air 05/22/16 19:08 85 173/101 05/22/16 19:08 173/101 05/22/16 18:49 Room Air 05/22/16 16:00 97.7 85 19 173/101 96 Room Air 05/22/16 16:00 85 05/22/16 15:15 Room Air 05/22/16 14:58 90 127/97 05/22/16 14:45 88 172/105 05/22/16 14:30 85 164/101 05/22/16 14:28 181/96 05/22/16 14:15 97.5 79 20 181/96 95 Room Air 05/22/16 14:00 78 23 165/95 100 Nasal Cannula 3.0 05/22/16 13:55 79 25 162/92 100 Nasal Cannula 3.0 05/22/16 13:50 77 15 170/96 100 Nasal Cannula 3.0 05/22/16 13:45 82 20 167/92 100 Nasal Cannula 3.0 05/22/16 13:40 80 22 156/95 100 Nasal Cannula 3.0 05/22/16 13:35 80 20 169/96 100 Nasal Cannula 3.0 05/22/16 13:00 85 151/81 05/22/16 11:30 97.9 85 21 151/81 95 Room Air Intake and Output 05/22/16 05/23/16 19:00 07:00 Output Total 2300 ml Balance -2300 ml Output Hemodialysis UF 2300 ml # Voids 2 Laboratory Tests Test 05/23/16 04:00 White Blood Count 6.8 K/UL (4.8-10.8) Red Blood Count 2.81 M/UL (4.20-5.40) L Hemoglobin 8.8 G/DL (12.0-16.0) L Hematocrit 27.1 % (37.0-47.0) L Mean Corpuscular Volume 97 FL (80-99) Mean Corpuscular Hemoglobin 31.2 PG (27.0-31.0) H Mean Corpuscular Hemoglobin Concent 32.3 G/DL (32.0-36.0) Red Cell Distribution Width 18.9 % (11.6-14.8) H Platelet Count 137 K/UL (150-450) L Mean Platelet Volume 5.8 FL (6.5-10.1) L Neutrophils (%) (Auto) 61.1 % (45.0-75.0) Lymphocytes (%) (Auto) 24.8 % (20.0-45.0) Monocytes (%) (Auto) 7.1 % (1.0-10.0) Eosinophils (%) (Auto) 6.5 % (0.0-3.0) H Basophils (%) (Auto) 0.6 % (0.0-2.0) Prothrombin Time 12.6 SEC (9.30-11.50) H Prothromb Time International Ratio 1.2 (0.9-1.1) H Sodium Level 144 mEQ/L (135-145) Potassium Level 4.4 mEQ/L (3.4-4.9) Chloride Level 98 mEQ/L (98-107) Carbon Dioxide Level 32 mEQ/L (20-30) H Anion Gap 14 (5-15) Blood Urea Nitrogen 22 mg/dL (7-23) Creatinine 3.5 mg/dL (0.5-0.9) H Estimat Glomerular Filtration Rate 16.2 mL/min (>60) Glucose Level 90 mg/dL (74-106) Calcium Level 8.1 mg/dL (8.6-10.2) L Total Bilirubin 0.4 mg/dL (0.0-1.2) Aspartate Amino Transf (AST/SGOT) 13 U/L (5-40) Alanine Aminotransferase (ALT/SGPT) 5 U/L (3-33) Alkaline Phosphatase 85 U/L (35-104) Total Protein 7.1 g/dL (6.6-8.7) Albumin 2.5 g/dL (3.5-5.2) L Globulin 4.6 g/dL Albumin/Globulin Ratio 0.5 (1.0-2.7) L Height (Feet): 5 Height (Inches): 1.00 Weight (Pounds): 133 General Appearance: no apparent distress, alert Cardiovascular: normal rate Respiratory/Chest: normal breath sounds, no respiratory distress Abdominal Exam: normal bowel sounds, non tender, ascites Autumn Lutz N.PKilo May 23, 2016 09:35
[2016-05-23] MEDS: traMADol 50mg tab ORAL PRN (09:43)
[2016-05-23 11:51] VITALS: BP 144/88
--- NOTE | 2016-05-23 14:45 | General Progress Note ---
Assessment/Plan Assessment/Plan ASSESSMENT: 1. Right upper extremitiy dvt - at this time, coumadin on hold given recent hemorrhage, hgb must first be stable, before restarting anticoag 2. Anemia on chronic kidney disease. ferritin 706, esr elevated, on epo 3. 12 mm nodule in the liver 4. Elevated tumor markers. The patient with a history of elevated tumor markers, CA-199 and CA-125 were elevated. An imaging CT scan shows potential sclerosis versus metastatic neoplasm, metabolic abnormality, in addition 12 mm enhancing nodule noted nonspecific and liver, which will need to be followed up. Skeletal survey nonspecific and to obtain NM scan shows no evidence of malignancy. Ascitic results show no abnormalities 5. History of alcohol abuse. 6. Abdominal pain. 7. Atelectasis. 8. Pulmonary edema. 9. Ascites. RECOMMENDATION: 1. Holding coumadin given anemia 2. Continue epogen sq 3. Imaging of the liver nodule every six months per GI service to monitor nodule growth every six months, which is 12 mm, which will need to be followed up 4. Peripheral smear shows no abnormalities 5. Hemodialysis 3x a week. 6. Appreciate pulm and nephro recs 7. Does not appear patient has any malignancy 8. Follow from heme perspective Subjective Constitutional: Reports: no symptoms HEENT: Reports: no symptoms Cardiovascular: Reports: no symptoms Respiratory: Reports: no symptoms Gastrointestinal/Abdominal: Reports: poor appetite Genitourinary: Reports: no symptoms Neurologic/Psychiatric: Reports: no symptoms Endocrine: Reports: no symptoms Hematologic/Lymphatic: Reports: anemia Allergies: Coded Allergies: No Known Allergies (Unverified , 09/20/15) Subjective stable, no events, no fevers or chills, holding anticoag Objective Last 24 Hour Vital Signs Date Time Temp Pulse Resp B/P Pulse Ox O2 Delivery O2 Flow Rate FiO2 05/23/16 12:43 82 144/88 05/23/16 12:00 83 05/23/16 11:51 98.2 82 18 144/88 96 05/23/16 08:35 84 168/91 05/23/16 08:35 84 168/91 05/23/16 08:00 98.0 78 17 132/81 98 Room Air 05/23/16 08:00 82 05/23/16 04:13 98.5 81 18 135/86 96 Room Air 05/23/16 04:00 83 05/23/16 00:12 98.6 83 19 156/99 97 Room Air 05/23/16 00:00 83 05/22/16 20:22 97.0 05/22/16 20:00 85 05/22/16 20:00 97.0 88 20 197/103 96 Room Air 05/22/16 19:08 85 173/101 05/22/16 19:08 173/101 05/22/16 18:49 Room Air 05/22/16 16:00 97.7 85 19 173/101 96 Room Air 05/22/16 16:00 85 05/22/16 15:15 Room Air 05/22/16 14:58 90 127/97 05/22/16 14:45 88 172/105 Intake and Output 05/22/16 05/23/16 19:00 07:00 Output Total 2300 ml Balance -2300 ml Output Hemodialysis UF 2300 ml # Voids 2 Laboratory Tests 05/23/16 04:00: White Blood Count 6.8, Red Blood Count 2.81L, Hemoglobin 8.8L, Hematocrit 27.1L , Mean Corpuscular Volume 97, Mean Corpuscular Hemoglobin 31.2H, Mean Corpuscular Hemoglobin Concent 32.3, Red Cell Distribution Width 18.9H, Platelet Count 137L, Mean Platelet Volume 5.8L, Neutrophils (%) (Auto) 61.1, Lymphocytes (%) (Auto) 24.8, Monocytes (%) (Auto) 7.1, Eosinophils (%) (Auto) 6.5H, Basophils (%) (Auto) 0.6, Prothrombin Time 12.6H, Prothromb Time International Ratio 1.2H, Sodium Level 144, Potassium Level 4.4, Chloride Level 98, Carbon Dioxide Level 32H, Anion Gap 14, Blood Urea Nitrogen 22, Creatinine 3.5H, Estimat Glomerular Filtration Rate 16.2, Glucose Level 90, Calcium Level 8.1L, Total Bilirubin 0.4, Aspartate Amino Transf (AST/SGOT) 13, Alanine Aminotransferase (ALT/SGPT) 5, Alkaline Phosphatase 85, Total Protein 7.1, Albumin 2.5L, Globulin 4.6, Albumin/Globulin Ratio 0.5L 05/23/16 12:00: Activated Partial Thromboplast Time 30 Height (Feet): 5 Height (Inches): 1.00 Weight (Pounds): 133 General Appearance: alert EENT: TMs normal Cardiovascular: normal rate Respiratory/Chest: normal breath sounds Abdomen: soft Extremities: non-tender Edema: no edema noted Leg (L), no edema noted Leg (R) Neurologic: oriented x 3 Skin: warm/dry Fabrizio Tobar May 23, 2016 14:45
--- NOTE | 2016-05-23 15:05 | General Progress Note ---
Assessment/Plan Status: stable Status Narrative had dialysis last night via left chest permacath Assessment/Plan status: ESRD- hemmorrhage from right arm graft Anemia Ascitis- DM HTN At Fib Plan: Vascular surgical eval noted Permacath and dialysis done repeat dialysis 05/24 optimize cardiac and pulmonary status- BP meds adjustment- 2 D Echo previous admission: Left ventricular ejection fraction estimated to be 70 %. Monitor lytes and renal parameters- Per consultants Transfused Paracynthesis, Ascitis aspiration as needed Subjective ROS Limited/Unobtainable: No Constitutional: Reports: malaise Allergies: Coded Allergies: No Known Allergies (Unverified , 09/20/15) Objective Last 24 Hour Vital Signs Date Time Temp Pulse Resp B/P Pulse Ox O2 Delivery O2 Flow Rate FiO2 05/23/16 12:43 82 144/88 05/23/16 12:00 83 05/23/16 11:51 98.2 82 18 144/88 96 05/23/16 08:35 84 168/91 05/23/16 08:35 84 168/91 05/23/16 08:00 98.0 78 17 132/81 98 Room Air 05/23/16 08:00 82 05/23/16 04:13 98.5 81 18 135/86 96 Room Air 05/23/16 04:00 83 05/23/16 00:12 98.6 83 19 156/99 97 Room Air 05/23/16 00:00 83 05/22/16 20:22 97.0 05/22/16 20:00 85 05/22/16 20:00 97.0 88 20 197/103 96 Room Air 05/22/16 19:08 85 173/101 05/22/16 19:08 173/101 05/22/16 18:49 Room Air 05/22/16 16:00 97.7 85 19 173/101 96 Room Air 05/22/16 16:00 85 05/22/16 15:15 Room Air Intake and Output 05/22/16 05/23/16 19:00 07:00 Output Total 2300 ml Balance -2300 ml Output Hemodialysis UF 2300 ml # Voids 2 Laboratory Tests 05/23/16 04:00: White Blood Count 6.8, Red Blood Count 2.81L, Hemoglobin 8.8L, Hematocrit 27.1L , Mean Corpuscular Volume 97, Mean Corpuscular Hemoglobin 31.2H, Mean Corpuscular Hemoglobin Concent 32.3, Red Cell Distribution Width 18.9H, Platelet Count 137L, Mean Platelet Volume 5.8L, Neutrophils (%) (Auto) 61.1, Lymphocytes (%) (Auto) 24.8, Monocytes (%) (Auto) 7.1, Eosinophils (%) (Auto) 6.5H, Basophils (%) (Auto) 0.6, Prothrombin Time 12.6H, Prothromb Time International Ratio 1.2H, Sodium Level 144, Potassium Level 4.4, Chloride Level 98, Carbon Dioxide Level 32H, Anion Gap 14, Blood Urea Nitrogen 22, Creatinine 3.5H, Estimat Glomerular Filtration Rate 16.2, Glucose Level 90, Calcium Level 8.1L, Total Bilirubin 0.4, Aspartate Amino Transf (AST/SGOT) 13, Alanine Aminotransferase (ALT/SGPT) 5, Alkaline Phosphatase 85, Total Protein 7.1, Albumin 2.5L, Globulin 4.6, Albumin/Globulin Ratio 0.5L 05/23/16 12:00: Activated Partial Thromboplast Time 30 Height (Feet): 5 Height (Inches): 1.00 Weight (Pounds): 133 General Appearance: no apparent distress Cardiovascular: normal rate Respiratory/Chest: decreased breath sounds Abdomen: soft Objective other PE not changed PEPE MONTERROSO May 23, 2016 15:05
--- NOTE | 2016-05-23 16:40 | Internal Med Progress Note ---
Subjective Date of Service: May 23, 2016 Physician Name Javier Alvarez Attending Physician Jackson Albright MD Current Medications Medications (Trade) Dose Ordered Sig/Ranjan Route PRN Reason Start Time Stop Time Status Last Admin Dose Admin Acetaminophen (Tylenol) 500 mg EVERY 6 HOURS PRN ORAL Mild Pain/Temp > 100.5 05/20/16 05:15 06/19/16 05:14 Amlodipine Besylate (Norvasc) 10 mg DAILY ORAL 05/20/16 09:00 06/19/16 08:59 05/23/16 08:35 Clonidine HCl (Catapres) 0.1 mg Q4H PRN ORAL For High Blood Pressure 05/20/16 05:15 06/19/16 05:14 05/22/16 19:08 Dextrose (Dextrose 50%) STAT PRN IV Hypoglycemia 05/20/16 05:15 06/19/16 05:14 Diphenhydramine HCl (Benadryl) 25 mg Q6H PRN ORAL Itching/Pruritis 05/20/16 05:15 06/19/16 05:14 05/23/16 06:54 Metoclopramide HCl (Reglan) 5 mg TID ORAL 05/21/16 13:00 06/20/16 12:59 05/23/16 12:43 Morphine Sulfate (Morphine Sulfate) 2 mg EVERY 4 HOURS PRN IVP Severe Pain (Pain Scale 7-10) 05/20/16 05:15 05/27/16 05:14 05/23/16 12:44 Ondansetron HCl (Zofran) 4 mg Q6H PRN IVP Nausea & Vomiting 05/20/16 05:15 06/19/16 05:14 Pantoprazole (Protonix) 40 mg DAILY ORAL 05/20/16 09:00 06/19/16 08:59 05/23/16 08:28 Polyethylene Glycol (Miralax) 17 gm DAILYPRN PRN ORAL Constipation 05/20/16 05:15 06/19/16 05:14 Propranolol HCl (Inderal) 25 mg TID ORAL 05/20/16 09:00 06/19/16 08:59 05/23/16 12:43 Rifaximin (Xifaxan) 550 mg EVERY 12 HOURS ORAL 05/20/16 09:00 05/27/16 08:59 05/23/16 08:28 Sevelamer Carbonate (Renvela) 1,600 mg THREE TIMES A DAY ORAL 05/21/16 13:00 06/20/16 12:59 05/23/16 12:44 Tramadol HCl (Ultram) 50 mg Q6H PRN ORAL Moderate Pain (Pain Scale 4-6) 05/20/16 05:15 05/27/16 05:14 05/23/16 09:43 Zolpidem Tartrate (Ambien) 5 mg HSPRN PRN ORAL Insomnia 05/20/16 22:15 06/19/16 22:14 05/21/16 21:36 Allergies: Coded Allergies: No Known Allergies (Unverified , 09/20/15) ROS Limited/Unobtainable: No Constitutional: Reports: no symptoms HEENT: Reports: no symptoms Cardiovascular: Reports: no symptoms Respiratory: Reports: no symptoms Gastrointestinal/Abdominal: Reports: no symptoms Genitourinary: Reports: no symptoms Neurologic/Psychiatric: Reports: no symptoms Subjective 61 YO F admitted with dialysis shunt hemorrhage. Await paracentesis. S/P Tunneled cath placement 05/22/16. Cover for Int Med-Dr Albright. Objective Last Vital Signs Date Time Temp Pulse Resp B/P Pulse Ox O2 Delivery O2 Flow Rate FiO2 05/23/16 12:43 82 144/88 05/23/16 11:51 98.2 18 96 05/23/16 08:00 Room Air 05/22/16 14:00 3.0 Laboratory Tests Test 05/23/16 04:00 05/23/16 12:00 White Blood Count 6.8 K/UL (4.8-10.8) Red Blood Count 2.81 M/UL (4.20-5.40) L Hemoglobin 8.8 G/DL (12.0-16.0) L Hematocrit 27.1 % (37.0-47.0) L Mean Corpuscular Volume 97 FL (80-99) Mean Corpuscular Hemoglobin 31.2 PG (27.0-31.0) H Mean Corpuscular Hemoglobin Concent 32.3 G/DL (32.0-36.0) Red Cell Distribution Width 18.9 % (11.6-14.8) H Platelet Count 137 K/UL (150-450) L Mean Platelet Volume 5.8 FL (6.5-10.1) L Neutrophils (%) (Auto) 61.1 % (45.0-75.0) Lymphocytes (%) (Auto) 24.8 % (20.0-45.0) Monocytes (%) (Auto) 7.1 % (1.0-10.0) Eosinophils (%) (Auto) 6.5 % (0.0-3.0) H Basophils (%) (Auto) 0.6 % (0.0-2.0) Prothrombin Time 12.6 SEC (9.30-11.50) H Prothromb Time International Ratio 1.2 (0.9-1.1) H Sodium Level 144 mEQ/L (135-145) Potassium Level 4.4 mEQ/L (3.4-4.9) Chloride Level 98 mEQ/L (98-107) Carbon Dioxide Level 32 mEQ/L (20-30) H Anion Gap 14 (5-15) Blood Urea Nitrogen 22 mg/dL (7-23) Creatinine 3.5 mg/dL (0.5-0.9) H Estimat Glomerular Filtration Rate 16.2 mL/min (>60) Glucose Level 90 mg/dL (74-106) Calcium Level 8.1 mg/dL (8.6-10.2) L Total Bilirubin 0.4 mg/dL (0.0-1.2) Aspartate Amino Transf (AST/SGOT) 13 U/L (5-40) Alanine Aminotransferase (ALT/SGPT) 5 U/L (3-33) Alkaline Phosphatase 85 U/L (35-104) Total Protein 7.1 g/dL (6.6-8.7) Albumin 2.5 g/dL (3.5-5.2) L Globulin 4.6 g/dL Albumin/Globulin Ratio 0.5 (1.0-2.7) L Activated Partial Thromboplast Time 30 SEC (23-33) Intake and Output 05/22/16 05/23/16 19:00 07:00 Output Total 2300 ml Balance -2300 ml Output Hemodialysis UF 2300 ml # Voids 2 Objective General Appearance: WD/WN, alert, mild distress EENT: PERRL/EOMI, normal ENT inspection Neck: non-tender, normal alignment, supple Cardiovascular: normal peripheral pulses, normal rate, regular rhythm, no gallop/murmur, no JVD Respiratory/Chest: chest wall non-tender, lungs clear, normal breath sounds, no respiratory distress, no accessory muscle use Abdomen: normal bowel sounds, non tender, soft, no organomegaly, no mass Extremities: normal range of motion, other - Dressing A/V graft Neurologic: dry ice maker II-XII grossly normal, no motor/sensory deficits Skin: normal pigmentation, warm/dry Assessment/Plan Problem List: (1) Malfunction of arteriovenous dialysis fistula Assessment & Plan: S/P hemorrhage. See vascular surgery consult. S/P Tunneled Permacath 05/22/16. (2) Anemia Assessment & Plan: Blood loss secondary to A/V graft hemorrhage. S/P transfurion 2 unit PRBC and 2 units FFP. See Hematology note. (3) ESRD (end stage renal disease) Assessment & Plan: See nephrology note. Next Hemodialysis 05/24/16 per nephrology (4) HTN (hypertension) Assessment & Plan: Cont propranolol and norvasc. (5) Cirrhosis of liver (6) H/O ETOH abuse (7) Ascites Assessment & Plan: Await paracentesis. (8) CHF (congestive heart failure) (9) Deep venous thrombosis of axillary vein Assessment & Plan: Hold anticoagulation due to hemorrrhage. See Hematology ( Bhavin) and vasc surgery (Lacho) consults. Status: stable JAVIER ALVAREZ May 23, 2016 16:40
--- NOTE | 2016-05-23 16:59 | Diagnostic Imaging Report ---
Indications: Ascites Technique: Ultrasound used to localize optimal puncture site. Sterile prepping and draping right lower quad. Local anesthesia with 1% lidocaine. Under real-time ultrasound guidance, puncture peritoneal space using paracentesis needle. Stylet removed. Catheter placed to vacuum bottle suction. Total 5.6 liters of fluid aspirated. Age and developed a hematoma at the puncture site. Manual compression was held until stabilized.. Findings: Followup sonography demonstrates complete resolution of peritoneal fluid. Impression: Successful ultrasound-guided paracentesis, yielding 5.6 liters of clear yellow fluid Procedure complicated by puncture site hematoma, apparently self limited
[2016-05-23 17:08] VITALS: BP 153/79
[2016-05-23 20:00] VITALS: BP 152/85
[2016-05-24 00:15] VITALS: BP 169/86
[2016-05-24] MEDS: traMADol 50mg tab ORAL PRN ×2 (00:58→08:29)
[2016-05-24] MEDS: Zolpidem 5mg tab ORAL PRN ×2 (00:59→22:36)
[2016-05-24 04:07] VITALS: BP 145/81
[2016-05-24] MEDS: Morphine Sulfate 2mg/ml Inj IVP PRN ×4 (05:43→20:51)
[2016-05-24 07:18] LABS: MEAN CORPUSCULAR HEMOGLOBIN 30.8 PG (27.0-31.0); MEAN CORPUSCULAR HGB CONC 30.9 G/DL (32.0-36.0); MEAN CORPUSCULAR VOLUME 100 FL (80-99); MEAN PLATELET VOLUME 5.7 FL (6.5-10.1); PLATELET COUNT 137 K/UL (150-450); RED CELL DISTRIBUTION WIDTH 19.2 % (11.6-14.8); WHITE BLOOD COUNT 7.2 K/UL (4.8-10.8)
[2016-05-24 07:22] LABS: CALCIUM 8.2 mg/dL (8.6-10.2); CREATININE 5.1 mg/dL (0.5-0.9); GLOMERULAR FILTRATION RATE 10.4 mL/min (>60); PHOSPHORUS 6.7 mg/dL (2.5-4.8); POTASSIUM 4.6 mEQ/L (3.4-4.9)
[2016-05-24 08:21] VITALS: BP 145/88
[2016-05-24] MEDS: Propranolol 40mg tab ORAL SCH ×2 (08:29→13:37)
[2016-05-24] MEDS: Rifaximin 550mg tab ORAL SCH ×2 (08:29→20:44)
--- NOTE | 2016-05-24 09:29 | GI Progress Note ---
Assessment/Plan Problems: (1) Abnormal LFTs ICD Codes: R79.89 - Other specified abnormal findings of blood chemistry SNOMED: 747197202 (2) H/O ETOH abuse ICD Codes: Z87.898 - Personal history of other specified conditions SNOMED: 162366324 (3) GERD (gastroesophageal reflux disease) ICD Codes: K21.9 - Gastro-esophageal reflux disease without esophagitis SNOMED: 453172004 (4) Cirrhosis of liver ICD Codes: K74.60 - Unspecified cirrhosis of liver SNOMED: 41752148 (5) Hypothyroidism ICD Codes: E03.9 - Hypothyroidism, unspecified SNOMED: 39237417 (6) Anemia ICD Codes: D64.9 - Anemia, unspecified SNOMED: 212280900 (7) Abdominal pain ICD Codes: R10.9 - Unspecified abdominal pain SNOMED: 90680765 Status: stable Status Narrative Discussed with Dr. Reyes. Assessment/Plan CA19-9 >> 78.93 (from previous admission 04/18/16) CEA >> 2.1 AFP >> WNL CA 125-5 >> 80.4 H Hep B core positive GGTP >> WNL s/p EGD>> biopsy results >> mild chronic antral gastritis abd U/S reviewed >> left pleural effusion, see full report. s/p paracentesis >> 5.6 L yield elevated ammonia >> lactulose renal diet bowel regime ppi Xifaxan, consider dc propranolol, pt does not have varices based on last EGD fu H&H, transfuse PRN fu trans vaginal biopsy fu bone survey out patient liver transplant referral +/- colonoscopy if needed Subjective Gastrointestinal/Abdominal: Reports: no symptoms Objective Last 24 Hour Vital Signs Date Time Temp Pulse Resp B/P Pulse Ox O2 Delivery O2 Flow Rate FiO2 05/24/16 08:29 83 145/88 05/24/16 08:28 83 145/88 05/24/16 08:21 98.2 83 18 145/88 94 Room Air 05/24/16 06:13 98.6 05/24/16 04:07 98.6 88 19 145/81 94 Room Air 05/24/16 04:00 88 05/24/16 01:57 98.7 05/24/16 00:15 98.7 92 19 169/86 98 Room Air 05/24/16 00:00 82 4/4/17 20:00 97.9 85 20 152/85 96 Room Air 05/23/16 20:00 85 05/23/16 18:13 86 153/79 05/23/16 17:08 98.1 86 21 153/79 98 Room Air 05/23/16 16:00 89 05/23/16 12:43 82 144/88 05/23/16 12:00 83 05/23/16 11:51 98.2 82 18 144/88 96 Intake and Output 05/23/16 05/24/16 19:00 07:00 Intake Total 680 ml 200 ml Balance 680 ml 200 ml Intake Oral 680 ml 200 ml # Voids 1 1 Laboratory Tests Test 05/23/16 12:00 05/24/16 04:40 Activated Partial Thromboplast Time 30 SEC (23-33) White Blood Count 7.2 K/UL (4.8-10.8) Red Blood Count 2.50 M/UL (4.20-5.40) L Hemoglobin 7.7 G/DL (12.0-16.0) L Hematocrit 24.9 % (37.0-47.0) L Mean Corpuscular Volume 100 FL (80-99) H Mean Corpuscular Hemoglobin 30.8 PG (27.0-31.0) Mean Corpuscular Hemoglobin Concent 30.9 G/DL (32.0-36.0) L Red Cell Distribution Width 19.2 % (11.6-14.8) H Platelet Count 137 K/UL (150-450) L Mean Platelet Volume 5.7 FL (6.5-10.1) L Neutrophils (%) (Auto) % (45.0-75.0) Lymphocytes (%) (Auto) % (20.0-45.0) Monocytes (%) (Auto) % (1.0-10.0) Eosinophils (%) (Auto) % (0.0-3.0) Basophils (%) (Auto) % (0.0-2.0) Neutrophils % (Manual) Pending Lymphocytes % (Manual) Pending Platelet Estimate Pending Platelet Morphology Pending Sodium Level 143 mEQ/L (135-145) Potassium Level 4.6 mEQ/L (3.4-4.9) Chloride Level 96 mEQ/L (98-107) L Carbon Dioxide Level 32 mEQ/L (20-30) H Anion Gap 15 (5-15) Blood Urea Nitrogen 34 mg/dL (7-23) H Creatinine 5.1 mg/dL (0.5-0.9) H Estimat Glomerular Filtration Rate 10.4 mL/min (>60) Glucose Level 109 mg/dL (74-106) H Calcium Level 8.2 mg/dL (8.6-10.2) L Phosphorus Level 6.7 mg/dL (2.5-4.8) H Height (Feet): 5 Height (Inches): 1.00 Weight (Pounds): 122 General Appearance: no apparent distress, alert Cardiovascular: normal rate Respiratory/Chest: normal breath sounds, no respiratory distress Abdominal Exam: normal bowel sounds, non tender, soft Autumn Lutz N.P. May 24, 2016 09:29
--- NOTE | 2016-05-24 09:41 | General Progress Note ---
Assessment/Plan Status: stable Status Narrative Hgb lower Assessment/Plan status: ESRD- hemmorrhage from right arm graft Anemia Ascitis- DM HTN At Fib Plan: Vascular surgical eval noted Permacath and dialysis done repeat dialysis 05/24 and transfuse optimize cardiac and pulmonary status- BP meds adjustment- 2 D Echo previous admission: Left ventricular ejection fraction estimated to be 70 %. Monitor lytes and renal parameters- Per consultants Transfused Paracynthesis, Ascitis aspiration as needed Subjective ROS Limited/Unobtainable: No Constitutional: Reports: malaise Allergies: Coded Allergies: No Known Allergies (Unverified , 09/20/15) Objective Last 24 Hour Vital Signs Date Time Temp Pulse Resp B/P Pulse Ox O2 Delivery O2 Flow Rate FiO2 05/24/16 08:29 83 145/88 05/24/16 08:28 83 145/88 05/24/16 08:21 98.2 83 18 145/88 94 Room Air 05/24/16 06:13 98.6 05/24/16 04:07 98.6 88 19 145/81 94 Room Air 05/24/16 04:00 88 05/24/16 01:57 98.7 05/24/16 00:15 98.7 92 19 169/86 98 Room Air 05/24/16 00:00 82 05/23/16 20:00 97.9 85 20 152/85 96 Room Air 05/23/16 20:00 85 05/23/16 18:13 86 153/79 05/23/16 17:08 98.1 86 21 153/79 98 Room Air 05/23/16 16:00 89 05/23/16 12:43 82 144/88 05/23/16 12:00 83 05/23/16 11:51 98.2 82 18 144/88 96 Intake and Output 05/23/16 05/24/16 19:00 07:00 Intake Total 680 ml 200 ml Balance 680 ml 200 ml Intake Oral 680 ml 200 ml # Voids 1 1 Laboratory Tests 05/23/16 12:00: Activated Partial Thromboplast Time 30 05/24/16 04:40: White Blood Count 7.2, Red Blood Count 2.50L, Hemoglobin 7.7L, Hematocrit 24.9L , Mean Corpuscular Volume 100H, Mean Corpuscular Hemoglobin 30.8, Mean Corpuscular Hemoglobin Concent 30.9L, Red Cell Distribution Width 19.2H, Platelet Count 137L, Mean Platelet Volume 5.7L, Neutrophils (%) (Auto) , Lymphocytes (%) (Auto) , Monocytes (%) (Auto) , Eosinophils (%) (Auto) , Basophils (%) (Auto) , Neutrophils % (Manual) [Pending], Lymphocytes % (Manual) [Pending], Platelet Estimate [Pending], Platelet Morphology [Pending], Sodium Level 143, Potassium Level 4.6, Chloride Level 96L, Carbon Dioxide Level 32H, Anion Gap 15, Blood Urea Nitrogen 34H, Creatinine 5.1H, Estimat Glomerular Filtration Rate 10.4, Glucose Level 109H, Calcium Level 8.2L, Phosphorus Level 6.7H Height (Feet): 5 Height (Inches): 1.00 Weight (Pounds): 122 General Appearance: no apparent distress Objective other PE not changed PEPE MONTERROSO May 24, 2016 09:41
[2016-05-24 10:07] LABS: ANISOCYTOSIS 1+; EOSINOPHILS % (MANUAL) 3 % (0-3); HYPOCHROMASIA 1+; LYMPHOCYTES % (MANUAL) 26 % (20-45); MACROCYTES 1+; NEUTROPHILS % (MANUAL) 63 % (45-75); TOTAL CELLS COUNTED 100
[2016-05-24 10:08] LABS: BAND NEUTROPHILS % (MANUAL) 0 % (0-8); BASOPHILS % (MANUAL) 0 % (0-2); PLATELET ESTIMATE DECREASED; PLATELET MORPHOLOGY NORMAL
--- NOTE | 2016-05-24 10:24 | Diagnostic Imaging Report ---
APPROVED REPORT CPT Code: 97333 Present Symptoms Upper Extremity Edema: Bilateral Comments: Pre-Op for dialysis access Vein Measurements(cm) Cephalic Basilic Right LeftRight Left Upper Arm0.350.42Mid Upper Arm0.33 Mid Upper Arm0.350.44Antecubital Fossa0.28 0.24Upper Forearm0.18 Antecubital Fossa0.28Wrist Upper Forearm0.25 Wrist0.20 VEIN MAPPING: The right and left basilic and left cephalic veins were imaged and measured to evaluate as a potential graft for dialysis access.
--- NOTE | 2016-05-24 10:24 | Internal Med Progress Note ---
Subjective Date of Service: May 24, 2016 Physician Name Javier Alvarez Attending Physician Jackson Albright MD Current Medications Medications (Trade) Dose Ordered Sig/Ranjan Route PRN Reason Start Time Stop Time Status Last Admin Dose Admin Acetaminophen (Tylenol) 500 mg EVERY 6 HOURS PRN ORAL Mild Pain/Temp > 100.5 05/20/16 05:15 06/19/16 05:14 Amlodipine Besylate (Norvasc) 10 mg DAILY ORAL 05/20/16 09:00 06/19/16 08:59 05/24/16 08:28 Clonidine HCl (Catapres) 0.1 mg Q4H PRN ORAL For High Blood Pressure 05/20/16 05:15 06/19/16 05:14 05/22/16 19:08 Dextrose (Dextrose 50%) STAT PRN IV Hypoglycemia 05/20/16 05:15 06/19/16 05:14 Diphenhydramine HCl (Benadryl) 25 mg Q6H PRN ORAL Itching/Pruritis 05/20/16 05:15 06/19/16 05:14 05/24/16 00:59 Metoclopramide HCl (Reglan) 5 mg TID ORAL 05/21/16 13:00 06/20/16 12:59 05/24/16 08:29 Morphine Sulfate (Morphine Sulfate) 2 mg EVERY 4 HOURS PRN IVP Severe Pain (Pain Scale 7-10) 05/20/16 05:15 05/27/16 05:14 05/24/16 09:50 Ondansetron HCl (Zofran) 4 mg Q6H PRN IVP Nausea & Vomiting 05/20/16 05:15 06/19/16 05:14 Pantoprazole (Protonix) 40 mg DAILY ORAL 05/20/16 09:00 06/19/16 08:59 05/24/16 08:29 Polyethylene Glycol (Miralax) 17 gm DAILYPRN PRN ORAL Constipation 05/20/16 05:15 06/19/16 05:14 Propranolol HCl (Inderal) 25 mg TID ORAL 05/20/16 09:00 06/19/16 08:59 05/24/16 08:29 Rifaximin (Xifaxan) 550 mg EVERY 12 HOURS ORAL 05/20/16 09:00 05/27/16 08:59 05/24/16 08:29 Sevelamer Carbonate (Renvela) 1,600 mg THREE TIMES A DAY ORAL 05/21/16 13:00 06/20/16 12:59 05/24/16 08:28 Tramadol HCl (Ultram) 50 mg Q6H PRN ORAL Moderate Pain (Pain Scale 4-6) 05/20/16 05:15 05/27/16 05:14 05/24/16 08:29 Zolpidem Tartrate (Ambien) 5 mg HSPRN PRN ORAL Insomnia 05/20/16 22:15 06/19/16 22:14 05/24/16 00:59 Allergies: Coded Allergies: No Known Allergies (Unverified , 09/20/15) ROS Limited/Unobtainable: No Constitutional: Reports: no symptoms HEENT: Reports: no symptoms Cardiovascular: Reports: no symptoms Respiratory: Reports: no symptoms Gastrointestinal/Abdominal: Reports: no symptoms Genitourinary: Reports: no symptoms Neurologic/Psychiatric: Reports: no symptoms Subjective 61 YO F admitted with dialysis shunt hemorrhage. S/P paracentesis 05/23/16. S/P Tunneled cath placement 05/22/16. Cover for Int Med-Dr Albright. Objective Last Vital Signs Date Time Temp Pulse Resp B/P Pulse Ox O2 Delivery O2 Flow Rate FiO2 05/24/16 08:29 83 145/88 05/24/16 08:21 98.2 18 94 Room Air 05/22/16 14:00 3.0 Laboratory Tests Test 05/23/16 12:00 05/24/16 04:40 Activated Partial Thromboplast Time 30 SEC (23-33) White Blood Count 7.2 K/UL (4.8-10.8) Red Blood Count 2.50 M/UL (4.20-5.40) L Hemoglobin 7.7 G/DL (12.0-16.0) L Hematocrit 24.9 % (37.0-47.0) L Mean Corpuscular Volume 100 FL (80-99) H Mean Corpuscular Hemoglobin 30.8 PG (27.0-31.0) Mean Corpuscular Hemoglobin Concent 30.9 G/DL (32.0-36.0) L Red Cell Distribution Width 19.2 % (11.6-14.8) H Platelet Count 137 K/UL (150-450) L Mean Platelet Volume 5.7 FL (6.5-10.1) L Neutrophils (%) (Auto) % (45.0-75.0) Lymphocytes (%) (Auto) % (20.0-45.0) Monocytes (%) (Auto) % (1.0-10.0) Eosinophils (%) (Auto) % (0.0-3.0) Basophils (%) (Auto) % (0.0-2.0) Differential Total Cells Counted 100 Neutrophils % (Manual) 63 % (45-75) Lymphocytes % (Manual) 26 % (20-45) Monocytes % (Manual) 8 % (1-10) Eosinophils % (Manual) 3 % (0-3) Basophils % (Manual) 0 % (0-2) Band Neutrophils 0 % (0-8) Platelet Estimate Decreased L Platelet Morphology Normal Hypochromasia 1+ Anisocytosis 1+ Macrocytosis 1+ Sodium Level 143 mEQ/L (135-145) Potassium Level 4.6 mEQ/L (3.4-4.9) Chloride Level 96 mEQ/L (98-107) L Carbon Dioxide Level 32 mEQ/L (20-30) H Anion Gap 15 (5-15) Blood Urea Nitrogen 34 mg/dL (7-23) H Creatinine 5.1 mg/dL (0.5-0.9) H Estimat Glomerular Filtration Rate 10.4 mL/min (>60) Glucose Level 109 mg/dL (74-106) H Calcium Level 8.2 mg/dL (8.6-10.2) L Phosphorus Level 6.7 mg/dL (2.5-4.8) H Intake and Output 05/23/16 05/24/16 19:00 07:00 Intake Total 680 ml 200 ml Balance 680 ml 200 ml Intake Oral 680 ml 200 ml # Voids 1 1 Objective General Appearance: WD/WN, alert, mild distress EENT: PERRL/EOMI, normal ENT inspection Neck: non-tender, normal alignment, supple Cardiovascular: normal peripheral pulses, normal rate, regular rhythm, no gallop/murmur, no JVD Respiratory/Chest: chest wall non-tender, lungs clear, normal breath sounds, no respiratory distress, no accessory muscle use Abdomen: normal bowel sounds, non tender, soft, no organomegaly, no mass Extremities: normal range of motion, other - Dressing A/V graft Neurologic: superintendent institution II-XII grossly normal, no motor/sensory deficits Skin: normal pigmentation, warm/dry Assessment/Plan Problem List: (1) Malfunction of arteriovenous dialysis fistula Assessment & Plan: S/P hemorrhage. See vascular surgery consult. S/P Tunneled Permacath 05/22/16. (2) Anemia Assessment & Plan: Worsening. Type and cross 2 units PRBC for possible transfusion today. Blood loss secondary to A/V graft hemorrhage. S/P transfurion 2 unit PRBC and 2 units FFP. See Hematology note. (3) ESRD (end stage renal disease) Assessment & Plan: See nephrology note. Hemodialysis today 05/24/16 per nephrology (4) HTN (hypertension) Assessment & Plan: Cont propranolol and norvasc. (5) Cirrhosis of liver (6) H/O ETOH abuse (7) Ascites Assessment & Plan: S/P paracentesis . Await results. (8) CHF (congestive heart failure) (9) Deep venous thrombosis of axillary vein Assessment & Plan: Hold anticoagulation due to hemorrrhage. See Hematology ( Bhavin) and vasc surgery (Lacho) consults. Status: not improved Assessment/Plan Hold discharge due to worsening anemia and possible transfusion. JAVIER ALVAREZ May 24, 2016 10:24
--- NOTE | 2016-05-24 10:28 | Diagnostic Imaging Report ---
APPROVED REPORT CPT Code: 78629 Present Symptoms Upper Extremity Pain: Right Upper Extremity Edema: Right Comments: Dialysis patient. Old AV fistula/shunt in LT upper arm. Current AV fistula/shunt in RT upper arm. NOTE: Dialysis patient. Old AV fistula/shunt in LT upper arm. Current AV fistula/shunt in RT upper arm, not visualized due to dressings. Dressings were not removable due to uncontrolled bleeding. Extensive RT arm edema from the antecubital fossa to the hand. RIGHT UPPER EXTREMITY: Venous imaging reveals acute thrombus in the axillary, upper arm brachial and radial veins. Venous imaging also reveals a non-patent AV fistula/shunt at the axillary to upper brachial arm level. There is no evidence of thrombus within the internal jugular or subclavian veins. The cephalic vein is also thrombosed. The basilic vein was not visualized. LEFT UPPER EXTREMITY: Venous imaging reveals patency of the internal jugular, subclavian, axillary, brachial and radial veins. The cephalic vein is also patent. Doppler indicates normal spontaneous flow within these venous segments. The basilic vein was not visualized.
[2016-05-24 11:26] VITALS: BP 143/85
[2016-05-24] MEDS ORDERED: DiphenhydrAMINE 50mg/ml Inj IVP PRN (11:30)
--- NOTE | 2016-05-24 12:40 | Pulmonology Progress Note ---
Assessment/Plan Problems: (1) Cirrhosis of liver (2) Deep venous thrombosis of axillary vein (3) ESRD (end stage renal disease) (4) Hypothyroidism (5) Hemorrhage from arteriovenous dialysis graft (6) Ascites Assessment/Plan for paracentesis HD by nephrology f/u by vascular pain control transfuse when Hem< 7 Subjective Interval Events: late note for 05/23: having paracentesis, c/o pain around catheter site Allergies: Coded Allergies: No Known Allergies (Unverified , 09/20/15) Objective Last 24 Hour Vital Signs Date Time Temp Pulse Resp B/P Pulse Ox O2 Delivery O2 Flow Rate FiO2 05/24/16 11:26 97.7 91 20 143/85 95 Room Air 05/24/16 08:29 83 145/88 05/24/16 08:28 83 145/88 05/24/16 08:21 98.2 83 18 145/88 94 Room Air 05/24/16 06:13 98.6 05/24/16 04:07 98.6 88 19 145/81 94 Room Air 05/24/16 04:00 88 05/24/16 01:57 98.7 05/24/16 00:15 98.7 92 19 169/86 98 Room Air 05/24/16 00:00 82 05/23/16 20:00 97.9 85 20 152/85 96 Room Air 05/23/16 20:00 85 05/23/16 18:13 86 153/79 05/23/16 17:08 98.1 86 21 153/79 98 Room Air 05/23/16 16:00 89 05/23/16 12:43 82 144/88 Intake and Output 05/23/16 05/24/16 19:00 07:00 Intake Total 680 ml 200 ml Balance 680 ml 200 ml Intake Oral 680 ml 200 ml # Voids 1 1 General Appearance: cachetic HEENT: normocephalic, anicteric Respiratory/Chest: chest wall non-tender, normal breath sounds Cardiovascular: normal peripheral pulses, regular rhythm Abdomen: normal bowel sounds, soft, non tender, no mass Skin: no rash, no lesions Laboratory Tests 05/24/16 04:40: White Blood Count 7.2, Red Blood Count 2.50L, Hemoglobin 7.7L, Hematocrit 24.9L , Mean Corpuscular Volume 100H, Mean Corpuscular Hemoglobin 30.8, Mean Corpuscular Hemoglobin Concent 30.9L, Red Cell Distribution Width 19.2H, Platelet Count 137L, Mean Platelet Volume 5.7L, Neutrophils (%) (Auto) , Lymphocytes (%) (Auto) , Monocytes (%) (Auto) , Eosinophils (%) (Auto) , Basophils (%) (Auto) , Differential Total Cells Counted 100, Neutrophils % ( Manual) 63, Lymphocytes % (Manual) 26, Monocytes % (Manual) 8, Eosinophils % ( Manual) 3, Basophils % (Manual) 0, Band Neutrophils 0, Platelet Estimate DecreasedL, Platelet Morphology Normal, Hypochromasia 1+, Anisocytosis 1+, Macrocytosis 1+, Sodium Level 143, Potassium Level 4.6, Chloride Level 96L, Carbon Dioxide Level 32H, Anion Gap 15, Blood Urea Nitrogen 34H, Creatinine 5.1H , Estimat Glomerular Filtration Rate 10.4, Glucose Level 109H, Calcium Level 8.2L, Phosphorus Level 6.7H Current Medications Medications (Trade) Dose Ordered Sig/Ranjan Route PRN Reason Start Time Stop Time Status Last Admin Dose Admin Acetaminophen (Tylenol) 500 mg EVERY 6 HOURS PRN ORAL Mild Pain/Temp > 100.5 05/20/16 05:15 06/19/16 05:14 Amlodipine Besylate (Norvasc) 10 mg DAILY ORAL 05/20/16 09:00 06/19/16 08:59 05/24/16 08:28 Clonidine HCl (Catapres) 0.1 mg Q4H PRN ORAL For High Blood Pressure 05/20/16 05:15 06/19/16 05:14 05/22/16 19:08 Dextrose (Dextrose 50%) STAT PRN IV Hypoglycemia 05/20/16 05:15 06/19/16 05:14 Diphenhydramine HCl (Benadryl) 25 mg Q4H PRN IVP Itching 05/24/16 11:30 06/23/16 11:29 Metoclopramide HCl (Reglan) 5 mg TID ORAL 05/21/16 13:00 06/20/16 12:59 05/24/16 08:29 Morphine Sulfate (Morphine Sulfate) 2 mg EVERY 4 HOURS PRN IVP Severe Pain (Pain Scale 7-10) 05/20/16 05:15 05/27/16 05:14 05/24/16 09:50 Ondansetron HCl (Zofran) 4 mg Q6H PRN IVP Nausea & Vomiting 05/20/16 05:15 06/19/16 05:14 Pantoprazole (Protonix) 40 mg DAILY ORAL 05/20/16 09:00 06/19/16 08:59 05/24/16 08:29 Polyethylene Glycol (Miralax) 17 gm DAILYPRN PRN ORAL Constipation 05/20/16 05:15 06/19/16 05:14 Propranolol HCl (Inderal) 25 mg TID ORAL 05/20/16 09:00 06/19/16 08:59 05/24/16 08:29 Rifaximin (Xifaxan) 550 mg EVERY 12 HOURS ORAL 05/20/16 09:00 05/27/16 08:59 05/24/16 08:29 Sevelamer Carbonate (Renvela) 1,600 mg THREE TIMES A DAY ORAL 05/21/16 13:00 06/20/16 12:59 05/24/16 08:28 Tramadol HCl (Ultram) 50 mg Q6H PRN ORAL Moderate Pain (Pain Scale 4-6) 05/20/16 05:15 05/27/16 05:14 05/24/16 08:29 Zolpidem Tartrate (Ambien) 5 mg HSPRN PRN ORAL Insomnia 05/20/16 22:15 06/19/16 22:14 05/24/16 00:59 ANN MARIE OSULLIVAN May 24, 2016 12:40
--- NOTE | 2016-05-24 12:41 | Pulmonology Progress Note ---
Assessment/Plan Problems: (1) Cirrhosis of liver (2) Deep venous thrombosis of axillary vein (3) ESRD (end stage renal disease) (4) Hypothyroidism (5) Hemorrhage from arteriovenous dialysis graft (6) Ascites Assessment/Plan for paracentesis HD by nephrology f/u by vascular pain control transfuse when Hem< 7 med/surg dc planning Subjective Interval Events: pain at catheter site Allergies: Coded Allergies: No Known Allergies (Unverified , 09/20/15) Objective Last 24 Hour Vital Signs Date Time Temp Pulse Resp B/P Pulse Ox O2 Delivery O2 Flow Rate FiO2 05/24/16 11:26 97.7 91 20 143/85 95 Room Air 05/24/16 08:29 83 145/88 05/24/16 08:28 83 145/88 05/24/16 08:21 98.2 83 18 145/88 94 Room Air 05/24/16 06:13 98.6 05/24/16 04:07 98.6 88 19 145/81 94 Room Air 05/24/16 04:00 88 05/24/16 01:57 98.7 05/24/16 00:15 98.7 92 19 169/86 98 Room Air 05/24/16 00:00 82 05/23/16 20:00 97.9 85 20 152/85 96 Room Air 05/23/16 20:00 85 05/23/16 18:13 86 153/79 05/23/16 17:08 98.1 86 21 153/79 98 Room Air 05/23/16 16:00 89 05/23/16 12:43 82 144/88 Intake and Output 05/23/16 05/24/16 19:00 07:00 Intake Total 680 ml 200 ml Balance 680 ml 200 ml Intake Oral 680 ml 200 ml # Voids 1 1 General Appearance: cachetic HEENT: normocephalic, atraumatic Cardiovascular: normal peripheral pulses, normal rate Abdomen: normal bowel sounds, soft, non tender Extremities: no cyanosis Skin: no rash Laboratory Tests 05/24/16 04:40: White Blood Count 7.2, Red Blood Count 2.50L, Hemoglobin 7.7L, Hematocrit 24.9L , Mean Corpuscular Volume 100H, Mean Corpuscular Hemoglobin 30.8, Mean Corpuscular Hemoglobin Concent 30.9L, Red Cell Distribution Width 19.2H, Platelet Count 137L, Mean Platelet Volume 5.7L, Neutrophils (%) (Auto) , Lymphocytes (%) (Auto) , Monocytes (%) (Auto) , Eosinophils (%) (Auto) , Basophils (%) (Auto) , Differential Total Cells Counted 100, Neutrophils % ( Manual) 63, Lymphocytes % (Manual) 26, Monocytes % (Manual) 8, Eosinophils % ( Manual) 3, Basophils % (Manual) 0, Band Neutrophils 0, Platelet Estimate DecreasedL, Platelet Morphology Normal, Hypochromasia 1+, Anisocytosis 1+, Macrocytosis 1+, Sodium Level 143, Potassium Level 4.6, Chloride Level 96L, Carbon Dioxide Level 32H, Anion Gap 15, Blood Urea Nitrogen 34H, Creatinine 5.1H , Estimat Glomerular Filtration Rate 10.4, Glucose Level 109H, Calcium Level 8.2L, Phosphorus Level 6.7H Current Medications Medications (Trade) Dose Ordered Sig/Ranjan Route PRN Reason Start Time Stop Time Status Last Admin Dose Admin Acetaminophen (Tylenol) 500 mg EVERY 6 HOURS PRN ORAL Mild Pain/Temp > 100.5 05/20/16 05:15 06/19/16 05:14 Amlodipine Besylate (Norvasc) 10 mg DAILY ORAL 05/20/16 09:00 06/19/16 08:59 05/24/16 08:28 Clonidine HCl (Catapres) 0.1 mg Q4H PRN ORAL For High Blood Pressure 05/20/16 05:15 06/19/16 05:14 05/22/16 19:08 Dextrose (Dextrose 50%) STAT PRN IV Hypoglycemia 05/20/16 05:15 06/19/16 05:14 Diphenhydramine HCl (Benadryl) 25 mg Q4H PRN IVP Itching 05/24/16 11:30 06/23/16 11:29 Metoclopramide HCl (Reglan) 5 mg TID ORAL 05/21/16 13:00 06/20/16 12:59 05/24/16 08:29 Morphine Sulfate (Morphine Sulfate) 2 mg EVERY 4 HOURS PRN IVP Severe Pain (Pain Scale 7-10) 05/20/16 05:15 05/27/16 05:14 05/24/16 09:50 Ondansetron HCl (Zofran) 4 mg Q6H PRN IVP Nausea & Vomiting 05/20/16 05:15 06/19/16 05:14 Pantoprazole (Protonix) 40 mg DAILY ORAL 05/20/16 09:00 06/19/16 08:59 05/24/16 08:29 Polyethylene Glycol (Miralax) 17 gm DAILYPRN PRN ORAL Constipation 05/20/16 05:15 06/19/16 05:14 Propranolol HCl (Inderal) 25 mg TID ORAL 05/20/16 09:00 06/19/16 08:59 05/24/16 08:29 Rifaximin (Xifaxan) 550 mg EVERY 12 HOURS ORAL 05/20/16 09:00 05/27/16 08:59 05/24/16 08:29 Sevelamer Carbonate (Renvela) 1,600 mg THREE TIMES A DAY ORAL 05/21/16 13:00 06/20/16 12:59 05/24/16 08:28 Tramadol HCl (Ultram) 50 mg Q6H PRN ORAL Moderate Pain (Pain Scale 4-6) 05/20/16 05:15 05/27/16 05:14 05/24/16 08:29 Zolpidem Tartrate (Ambien) 5 mg HSPRN PRN ORAL Insomnia 05/20/16 22:15 06/19/16 22:14 05/24/16 00:59 ANN MARIE OSULLIVAN May 24, 2016 12:41
[2016-05-24] MEDS ORDERED: traMADol 50mg tab ORAL PRN (15:00)
[2016-05-24] MEDS ORDERED: Acetaminophen 500mg (ES) tab ORAL PRN (15:00)
[2016-05-24] MEDS ORDERED: Miralax 17gm pkt ORAL PRN (15:00)
[2016-05-24 16:00] VITALS: BP 157/87
--- NOTE | 2016-05-24 17:44 | General Progress Note ---
Assessment/Plan Assessment/Plan ASSESSMENT: 1. Right upper extremitiy dvt - at this time, coumadin on hold given recent hemorrhage, hgb must first be stable before restarting anticoag 2. Anemia on chronic kidney disease. ferritin 706, esr elevated, on epo 3. 12 mm nodule in the liver 4. Elevated tumor markers. The patient with a history of elevated tumor markers, CA-199 and CA-125 were elevated. An imaging CT scan shows potential sclerosis versus metastatic neoplasm, metabolic abnormality, in addition 12 mm enhancing nodule noted nonspecific and liver, which will need to be followed up. Skeletal survey nonspecific and to obtain NM scan shows no evidence of malignancy. Ascitic results show no abnormalities 5. History of alcohol abuse. 6. Abdominal pain. 7. Atelectasis. 8. Pulmonary edema. 9. Ascites. RECOMMENDATION: 1. Holding coumadin given anemia 2. Continue epogen sq 3. Imaging of the liver nodule every six months per GI service to monitor nodule growth every six months, which is 12 mm, which will need to be followed up 4. Peripheral smear shows no abnormalities 5. Hemodialysis 3x a week. 6. Appreciate pulm and nephro recs 7. Hgb goal >8 given esrd 8. Follow from heme perspective Subjective Constitutional: Reports: no symptoms HEENT: Reports: no symptoms Cardiovascular: Reports: no symptoms Gastrointestinal/Abdominal: Reports: poor appetite Genitourinary: Reports: no symptoms Neurologic/Psychiatric: Reports: no symptoms Endocrine: Reports: no symptoms Hematologic/Lymphatic: Reports: anemia Allergies: Coded Allergies: No Known Allergies (Unverified , 09/20/15) Subjective stable, no events, no fevers or chills, getting blood today (ordered by renal) Objective Last 24 Hour Vital Signs Date Time Temp Pulse Resp B/P Pulse Ox O2 Delivery O2 Flow Rate FiO2 05/24/16 16:00 98.2 89 22 157/87 94 Room Air 05/24/16 15:59 Room Air 3.0 05/24/16 15:10 Room Air 3.0 05/24/16 13:37 87 143/85 05/24/16 12:00 87 05/24/16 11:26 97.7 91 20 143/85 95 Room Air 05/24/16 08:29 83 145/88 05/24/16 08:28 83 145/88 05/24/16 08:21 98.2 83 18 145/88 94 Room Air 05/24/16 08:00 81 05/24/16 06:13 98.6 05/24/16 04:07 98.6 88 19 145/81 94 Room Air 05/24/16 04:00 88 05/24/16 01:57 98.7 05/24/16 00:15 98.7 92 19 169/86 98 Room Air 05/24/16 00:00 82 05/23/16 20:00 97.9 85 20 152/85 96 Room Air 05/23/16 20:00 85 05/23/16 18:13 86 153/79 Intake and Output 05/23/16 05/24/16 19:00 07:00 Intake Total 680 ml 200 ml Balance 680 ml 200 ml Intake Oral 680 ml 200 ml # Voids 1 1 Laboratory Tests 05/24/16 04:40: White Blood Count 7.2, Red Blood Count 2.50L, Hemoglobin 7.7L, Hematocrit 24.9L , Mean Corpuscular Volume 100H, Mean Corpuscular Hemoglobin 30.8, Mean Corpuscular Hemoglobin Concent 30.9L, Red Cell Distribution Width 19.2H, Platelet Count 137L, Mean Platelet Volume 5.7L, Neutrophils (%) (Auto) , Lymphocytes (%) (Auto) , Monocytes (%) (Auto) , Eosinophils (%) (Auto) , Basophils (%) (Auto) , Differential Total Cells Counted 100, Neutrophils % ( Manual) 63, Lymphocytes % (Manual) 26, Monocytes % (Manual) 8, Eosinophils % ( Manual) 3, Basophils % (Manual) 0, Band Neutrophils 0, Platelet Estimate DecreasedL, Platelet Morphology Normal, Hypochromasia 1+, Anisocytosis 1+, Macrocytosis 1+, Sodium Level 143, Potassium Level 4.6, Chloride Level 96L, Carbon Dioxide Level 32H, Anion Gap 15, Blood Urea Nitrogen 34H, Creatinine 5.1H , Estimat Glomerular Filtration Rate 10.4, Glucose Level 109H, Calcium Level 8.2L, Phosphorus Level 6.7H Height (Feet): 5 Height (Inches): 1.00 Weight (Pounds): 122 General Appearance: alert EENT: TMs normal Neck: supple Cardiovascular: regular rhythm Respiratory/Chest: lungs clear Abdomen: non tender, no mass Extremities: non-tender Edema: 1+ Leg (L), 1+ Leg (R) Edema: mild edema Neurologic: alert Skin: warm/dry Fabrizio Tobar May 24, 2016 17:44
[2016-05-24 20:10] VITALS: BP 170/101
[2016-05-24] MEDS: DiphenhydrAMINE 50mg/ml Inj IVP PRN (21:11)
[2016-05-25] VITALS (8 sets, daily range): BP systolic 140–169; BP diastolic 75–97
[2016-05-25] MEDS: Morphine Sulfate 2mg/ml Inj IVP PRN ×5 (01:13→21:24)
[2016-05-25] MEDS: DiphenhydrAMINE 50mg/ml Inj IVP PRN ×5 (01:14→21:24)
[2016-05-25 08:49] LABS: BASOPHILS % (AUTO) 0.5 % (0.0-2.0); EOSINOPHILS % (AUTO) 7.5 % (0.0-3.0); LYMPHOCYTES % (AUTO) 28.7 % (20.0-45.0); MEAN CORPUSCULAR HEMOGLOBIN 30.5 PG (27.0-31.0); MEAN CORPUSCULAR HGB CONC 31.6 G/DL (32.0-36.0); MEAN CORPUSCULAR VOLUME 97 FL (80-99); MEAN PLATELET VOLUME 6.4 FL (6.5-10.1); NEUTROPHILS % (AUTO) 55.4 % (45.0-75.0); PLATELET COUNT 106 K/UL (150-450); RED BLOOD COUNT 2.86 M/UL (4.20-5.40); RED CELL DISTRIBUTION WIDTH 17.7 % (11.6-14.8)
[2016-05-25] MEDS: Propranolol 10mg tab ORAL SCH ×3 (08:54→17:53)
[2016-05-25] MEDS: Rifaximin 550mg tab ORAL SCH ×2 (08:59→21:23)
[2016-05-25 09:36] LABS: CREATININE 4.1 mg/dL (0.5-0.9); GLOMERULAR FILTRATION RATE 13.5 mL/min (>60); POTASSIUM 3.7 mEQ/L (3.4-4.9)
--- NOTE | 2016-05-25 10:30 | GI Progress Note ---
Assessment/Plan Problems: (1) Abnormal LFTs ICD Codes: R79.89 - Other specified abnormal findings of blood chemistry SNOMED: 133381491 (2) H/O ETOH abuse ICD Codes: Z87.898 - Personal history of other specified conditions SNOMED: 542543628 (3) GERD (gastroesophageal reflux disease) ICD Codes: K21.9 - Gastro-esophageal reflux disease without esophagitis SNOMED: 412218684 (4) Cirrhosis of liver ICD Codes: K74.60 - Unspecified cirrhosis of liver SNOMED: 14003278 (5) Hypothyroidism ICD Codes: E03.9 - Hypothyroidism, unspecified SNOMED: 62941332 (6) Anemia ICD Codes: D64.9 - Anemia, unspecified SNOMED: 492201718 (7) Abdominal pain ICD Codes: R10.9 - Unspecified abdominal pain SNOMED: 04608144 Status: stable Status Narrative Discussed with Dr. Reyes. Assessment/Plan CA19-9 >> 78.93 (from previous admission 04/18/16) CEA >> 2.1 AFP >> WNL CA 125-5 >> 80.4 H Hep B core positive GGTP >> WNL s/p EGD>> biopsy results >> mild chronic antral gastritis abd U/S reviewed >> left pleural effusion, see full report. s/p paracentesis >> 5.6 L yield ok for DC per GI standpoint elevated ammonia >> lactulose + Xifaxan consider dc propranolol, pt does not have varices based on last EGD renal diet bowel regime ppi fu H&H, transfuse PRN recommend outpatient liver transplant referral Subjective Gastrointestinal/Abdominal: Reports: abdominal pain - tenderness Objective Last 24 Hour Vital Signs Date Time Temp Pulse Resp B/P Pulse Ox O2 Delivery O2 Flow Rate FiO2 05/25/16 08:56 84 140/75 05/25/16 08:54 84 140/75 05/25/16 08:54 84 140/75 05/25/16 07:50 98.2 82 19 157/80 97 Room Air 05/25/16 06:30 98.2 05/25/16 04:00 98.2 92 19 146/92 93 Room Air 05/25/16 01:14 166/97 05/25/16 00:00 98.1 93 20 166/97 94 Room Air 05/24/16 20:10 98.2 91 22 170/101 93 Room Air 05/24/16 18:11 Room Air 3.0 05/24/16 16:00 98.2 89 22 157/87 94 Room Air 05/24/16 15:59 Room Air 3.0 05/24/16 15:10 Room Air 3.0 05/24/16 13:37 87 143/85 05/24/16 12:00 87 05/24/16 11:26 97.7 91 20 143/85 95 Room Air Intake and Output 05/24/16 05/25/16 19:00 07:00 Intake Total 240 ml Output Total 2300 ml Balance -2060 ml Intake Oral 240 ml Output Hemodialysis UF 2300 ml # Voids 1 # Bowel Movements 1 Laboratory Tests Test 05/25/16 07:45 White Blood Count 6.0 K/UL (4.8-10.8) Red Blood Count 2.86 M/UL (4.20-5.40) L Hemoglobin 8.7 G/DL (12.0-16.0) L Hematocrit 27.6 % (37.0-47.0) L Mean Corpuscular Volume 97 FL (80-99) Mean Corpuscular Hemoglobin 30.5 PG (27.0-31.0) Mean Corpuscular Hemoglobin Concent 31.6 G/DL (32.0-36.0) L Red Cell Distribution Width 17.7 % (11.6-14.8) H Platelet Count 106 K/UL (150-450) L Mean Platelet Volume 6.4 FL (6.5-10.1) L Neutrophils (%) (Auto) 55.4 % (45.0-75.0) Lymphocytes (%) (Auto) 28.7 % (20.0-45.0) Monocytes (%) (Auto) 8.0 % (1.0-10.0) Eosinophils (%) (Auto) 7.5 % (0.0-3.0) H Basophils (%) (Auto) 0.5 % (0.0-2.0) Sodium Level 140 mEQ/L (135-145) Potassium Level 3.7 mEQ/L (3.4-4.9) Chloride Level 94 mEQ/L (98-107) L Carbon Dioxide Level 32 mEQ/L (20-30) H Anion Gap 14 (5-15) Blood Urea Nitrogen 26 mg/dL (7-23) H Creatinine 4.1 mg/dL (0.5-0.9) H Estimat Glomerular Filtration Rate 13.5 mL/min (>60) Glucose Level 90 mg/dL (74-106) Calcium Level 8.0 mg/dL (8.6-10.2) L Height (Feet): 5 Height (Inches): 1.00 Weight (Pounds): 122 General Appearance: no apparent distress, alert Cardiovascular: normal rate Respiratory/Chest: normal breath sounds, no respiratory distress Abdominal Exam: soft, tender, ascites Autumn Lutz N.P. May 25, 2016 10:30
[2016-05-25 10:46] LABS: OTHERS PATHOLOGIST COMMENT
--- NOTE | 2016-05-25 13:07 | General Progress Note ---
Assessment/Plan Status: stable Assessment/Plan status: ESRD- hemmorrhage from right arm graft Anemia Ascitis- DM HTN At Fib Plan: Vascular surgical eval noted Permacath and dialysis done last dialysis 05/24 and transfuse- next 05/25 optimize cardiac and pulmonary status- BP meds adjustment- 2 D Echo previous admission: Left ventricular ejection fraction estimated to be 70 %. Monitor lytes and renal parameters- Per consultants Transfused Paracynthesis, Ascitis aspiration as needed Subjective ROS Limited/Unobtainable: No Constitutional: Reports: malaise Allergies: Coded Allergies: No Known Allergies (Unverified , 09/20/15) Objective Last 24 Hour Vital Signs Date Time Temp Pulse Resp B/P Pulse Ox O2 Delivery O2 Flow Rate FiO2 05/25/16 11:13 97.8 89 20 100 Nasal Cannula 3.0 68 100 05/25/16 08:56 84 140/75 05/25/16 08:54 84 140/75 05/25/16 08:54 84 140/75 05/25/16 07:50 98.2 82 19 157/80 97 Room Air 05/25/16 06:30 98.2 05/25/16 04:00 98.2 92 19 146/92 93 Room Air 05/25/16 01:14 166/97 05/25/16 00:00 98.1 93 20 166/97 94 Room Air 05/24/16 20:10 98.2 91 22 170/101 93 Room Air 05/24/16 18:11 Room Air 3.0 05/24/16 16:00 98.2 89 22 157/87 94 Room Air 05/24/16 15:59 Room Air 3.0 05/24/16 15:10 Room Air 3.0 05/24/16 13:37 87 143/85 Intake and Output 05/24/16 05/25/16 19:00 07:00 Intake Total 240 ml Output Total 2300 ml Balance -2060 ml Intake Oral 240 ml Output Hemodialysis UF 2300 ml # Voids 1 # Bowel Movements 1 Laboratory Tests 05/25/16 07:45: White Blood Count 6.0, Red Blood Count 2.86L, Hemoglobin 8.7L, Hematocrit 27.6L , Mean Corpuscular Volume 97, Mean Corpuscular Hemoglobin 30.5, Mean Corpuscular Hemoglobin Concent 31.6L, Red Cell Distribution Width 17.7H, Platelet Count 106L, Mean Platelet Volume 6.4L, Neutrophils (%) (Auto) 55.4, Lymphocytes (%) (Auto) 28.7, Monocytes (%) (Auto) 8.0, Eosinophils (%) (Auto) 7.5H, Basophils (%) (Auto) 0.5, Sodium Level 140, Potassium Level 3.7, Chloride Level 94L, Carbon Dioxide Level 32H, Anion Gap 14, Blood Urea Nitrogen 26H, Creatinine 4.1H, Estimat Glomerular Filtration Rate 13.5, Glucose Level 90, Calcium Level 8.0L Height (Feet): 5 Height (Inches): 1.00 Weight (Pounds): 122 General Appearance: no apparent distress Objective other PE not changed PEPE MONTERROSO May 25, 2016 13:07
--- NOTE | 2016-05-25 14:50 | General Progress Note ---
Assessment/Plan Assessment/Plan ASSESSMENT: 1. Right upper extremitiy dvt - at this time, coumadin on hold given recent hemorrhage, hgb must first be stable before restarting anticoag 2. Anemia on chronic kidney disease. ferritin 706, esr elevated, on epo 3. 12 mm nodule in the liver 4. Elevated tumor markers. The patient with a history of elevated tumor markers, CA-199 and CA-125 were elevated. An imaging CT scan shows potential sclerosis versus metastatic neoplasm, metabolic abnormality, in addition 12 mm enhancing nodule noted nonspecific and liver, which will need to be followed up. Skeletal survey nonspecific and to obtain NM scan shows no evidence of malignancy. Ascitic results show no abnormalities 5. History of alcohol abuse. 6. Abdominal pain. 7. Atelectasis. 8. Pulmonary edema. 9. Ascites. RECOMMENDATION: 1. Holding coumadin given anemia 2. Continue epogen sq 3. Imaging of the liver nodule every six months per GI service to monitor nodule growth every six months, which is 12 mm, which will need to be followed up 4. Peripheral smear shows no abnormalities 5. Hemodialysis 3x a week. 6. Appreciate pulm and nephro recs 7. Hgb goal >8 given esrd 8. Follow from heme perspective Subjective Constitutional: Reports: no symptoms HEENT: Reports: no symptoms Cardiovascular: Reports: no symptoms Respiratory: Reports: no symptoms Gastrointestinal/Abdominal: Reports: no symptoms Genitourinary: Reports: no symptoms Endocrine: Reports: no symptoms Hematologic/Lymphatic: Reports: anemia Allergies: Coded Allergies: No Known Allergies (Unverified , 09/20/15) Subjective stable, no events, no fevers or chills, s/p blood transfusion Objective Last 24 Hour Vital Signs Date Time Temp Pulse Resp B/P Pulse Ox O2 Delivery O2 Flow Rate FiO2 05/25/16 13:31 86 164/92 05/25/16 12:00 84 18 148/78 100 Room Air 05/25/16 11:13 97.8 89 20 100 Nasal Cannula 3.0 68 100 05/25/16 08:56 84 140/75 05/25/16 08:54 84 140/75 05/25/16 08:54 84 140/75 05/25/16 07:50 98.2 82 19 157/80 97 Room Air 05/25/16 06:30 98.2 05/25/16 04:00 98.2 92 19 146/92 93 Room Air 05/25/16 01:14 166/97 05/25/16 00:00 98.1 93 20 166/97 94 Room Air 05/24/16 20:10 98.2 91 22 170/101 93 Room Air 05/24/16 18:11 Room Air 3.0 05/24/16 16:00 98.2 89 22 157/87 94 Room Air 05/24/16 15:59 Room Air 3.0 05/24/16 15:10 Room Air 3.0 Intake and Output 05/24/16 05/25/16 19:00 07:00 Intake Total 240 ml Output Total 2300 ml Balance -2060 ml Intake Oral 240 ml Hemodialysis UF 2300 ml # Voids 1 # Bowel Movements 1 Laboratory Tests 05/25/16 07:45: White Blood Count 6.0, Red Blood Count 2.86L, Hemoglobin 8.7L, Hematocrit 27.6L , Mean Corpuscular Volume 97, Mean Corpuscular Hemoglobin 30.5, Mean Corpuscular Hemoglobin Concent 31.6L, Red Cell Distribution Width 17.7H, Platelet Count 106L, Mean Platelet Volume 6.4L, Neutrophils (%) (Auto) 55.4, Lymphocytes (%) (Auto) 28.7, Monocytes (%) (Auto) 8.0, Eosinophils (%) (Auto) 7.5H, Basophils (%) (Auto) 0.5, Sodium Level 140, Potassium Level 3.7, Chloride Level 94L, Carbon Dioxide Level 32H, Anion Gap 14, Blood Urea Nitrogen 26H, Creatinine 4.1H, Estimat Glomerular Filtration Rate 13.5, Glucose Level 90, Calcium Level 8.0L Height (Feet): 5 Height (Inches): 1.00 Weight (Pounds): 122 Fabrizio Tobar May 25, 2016 14:50
[2016-05-25] MEDS ORDERED: Tubing Blood Filter IV ONE (15:55)
[2016-05-25] MEDS ORDERED: NS 275ml ONE (15:55)
--- NOTE | 2016-05-25 17:50 | Internal Med Progress Note ---
Subjective Date of Service: May 25, 2016 Physician Name Javier Alvarez Attending Physician Jackson Albright MD Current Medications Medications (Trade) Dose Ordered Sig/Ranjan Route PRN Reason Start Time Stop Time Status Last Admin Dose Admin Acetaminophen (Tylenol) 500 mg Q6H PRN ORAL Mild Pain/Temp > 100.5 05/24/16 15:00 06/23/16 14:59 Amlodipine Besylate (Norvasc) 10 mg DAILY ORAL 05/25/16 09:00 06/24/16 08:59 05/25/16 08:56 Clonidine HCl (Catapres) 0.1 mg Q4H PRN ORAL SBP>160 05/24/16 15:00 06/23/16 14:59 05/25/16 01:14 Dextrose (Dextrose 50%) STAT PRN IV Hypoglycemia 05/25/16 15:00 06/24/16 14:59 Diphenhydramine HCl (Benadryl) 25 mg Q4H PRN IVP Itching 05/24/16 15:30 06/23/16 15:29 05/25/16 15:02 Metoclopramide HCl (Reglan) 5 mg TID ORAL 05/24/16 18:00 06/23/16 17:59 05/25/16 13:30 Morphine Sulfate (Morphine Sulfate) 2 mg Q4H PRN IVP Severe Pain (Pain Scale 7-10) 05/24/16 15:00 05/31/16 14:59 05/25/16 14:59 Ondansetron HCl (Zofran) 4 mg Q6H PRN IVP Nausea & Vomiting 05/24/16 15:00 06/23/16 14:59 Pantoprazole (Protonix) 40 mg DAILY ORAL 05/25/16 09:00 06/24/16 08:59 05/25/16 08:58 Polyethylene Glycol (Miralax) 17 gm DAILYPRN PRN ORAL Constipation 05/24/16 15:00 06/23/16 14:59 Propranolol HCl (Inderal) 25 mg TID ORAL 05/25/16 09:00 06/24/16 08:59 05/25/16 13:31 Rifaximin (Xifaxan) 550 mg EVERY 12 HOURS ORAL 05/24/16 21:00 05/31/16 20:59 05/25/16 08:59 Sevelamer Carbonate (Renvela) 1,600 mg THREE TIMES A DAY ORAL 05/24/16 18:00 06/23/16 17:59 05/25/16 13:29 Tramadol HCl (Ultram) 50 mg Q6H PRN ORAL Moderate Pain (Pain Scale 4-6) 05/24/16 15:00 05/31/16 14:59 Zolpidem Tartrate (Ambien) 5 mg HSPRN PRN ORAL Insomnia 05/24/16 21:00 06/23/16 20:59 05/24/16 22:36 Allergies: Coded Allergies: No Known Allergies (Unverified , 09/20/15) ROS Limited/Unobtainable: No Constitutional: Reports: no symptoms HEENT: Reports: no symptoms Cardiovascular: Reports: no symptoms Respiratory: Reports: no symptoms Gastrointestinal/Abdominal: Reports: no symptoms Genitourinary: Reports: no symptoms Neurologic/Psychiatric: Reports: no symptoms Subjective 61 YO F admitted with dialysis shunt hemorrhage. S/P paracentesis 05/23/16. S/P Tunneled cath placement 05/22/16. Cover for [facility]-Dr Albright. Objective Last Vital Signs Date Time Temp Pulse Resp B/P Pulse Ox O2 Delivery O2 Flow Rate FiO2 05/25/16 16:13 98.1 85 22 156/86 93 Room Air 05/25/16 11:13 3.0 Laboratory Tests Test 05/25/16 07:45 White Blood Count 6.0 K/UL (4.8-10.8) Red Blood Count 2.86 M/UL (4.20-5.40) L Hemoglobin 8.7 G/DL (12.0-16.0) L Hematocrit 27.6 % (37.0-47.0) L Mean Corpuscular Volume 97 FL (80-99) Mean Corpuscular Hemoglobin 30.5 PG (27.0-31.0) Mean Corpuscular Hemoglobin Concent 31.6 G/DL (32.0-36.0) L Red Cell Distribution Width 17.7 % (11.6-14.8) H Platelet Count 106 K/UL (150-450) L Mean Platelet Volume 6.4 FL (6.5-10.1) L Neutrophils (%) (Auto) 55.4 % (45.0-75.0) Lymphocytes (%) (Auto) 28.7 % (20.0-45.0) Monocytes (%) (Auto) 8.0 % (1.0-10.0) Eosinophils (%) (Auto) 7.5 % (0.0-3.0) H Basophils (%) (Auto) 0.5 % (0.0-2.0) Sodium Level 140 mEQ/L (135-145) Potassium Level 3.7 mEQ/L (3.4-4.9) Chloride Level 94 mEQ/L (98-107) L Carbon Dioxide Level 32 mEQ/L (20-30) H Anion Gap 14 (5-15) Blood Urea Nitrogen 26 mg/dL (7-23) H Creatinine 4.1 mg/dL (0.5-0.9) H Estimat Glomerular Filtration Rate 13.5 mL/min (>60) Glucose Level 90 mg/dL (74-106) Calcium Level 8.0 mg/dL (8.6-10.2) L Intake and Output 05/24/16 05/25/16 19:00 07:00 Intake Total 240 ml Output Total 2300 ml Balance -2060 ml Intake Oral 240 ml Hemodialysis UF 2300 ml # Voids 1 # Bowel Movements 1 Objective General Appearance: WD/WN, alert, mild distress EENT: PERRL/EOMI, normal ENT inspection Neck: non-tender, normal alignment, supple Cardiovascular: normal peripheral pulses, normal rate, regular rhythm, no gallop/murmur, no JVD Respiratory/Chest: chest wall non-tender, lungs clear, normal breath sounds, no respiratory distress, no accessory muscle use Abdomen: normal bowel sounds, non tender, soft, no organomegaly, no mass Extremities: normal range of motion, other - Dressing A/V graft Neurologic: traffic administrator II-XII grossly normal, no motor/sensory deficits Skin: normal pigmentation, warm/dry Assessment/Plan Problem List: (1) Malfunction of arteriovenous dialysis fistula Assessment & Plan: S/P hemorrhage. See vascular surgery consult. S/P Tunneled Permacath 05/22/16. (2) Anemia Assessment & Plan: Worsening. Type and cross 2 units PRBC for possible transfusion today. Blood loss secondary to A/V graft hemorrhage. S/P transfurion 2 unit PRBC and 2 units FFP. See Hematology note. (3) ESRD (end stage renal disease) Assessment & Plan: See nephrology note. Hemodialysis today 05/24/16 per nephrology (4) HTN (hypertension) Assessment & Plan: Cont propranolol and norvasc. (5) Cirrhosis of liver (6) H/O ETOH abuse (7) Ascites Assessment & Plan: S/P paracentesis . Await results. (8) CHF (congestive heart failure) (9) Deep venous thrombosis of axillary vein Assessment & Plan: Hold anticoagulation due to hemorrrhage. See Hematology ( Bhavin) and vasc surgery (Lacho) consults. Status: progressing Assessment/Plan Discharge planning: [facility] residential fac. JAVIER ALVAREZ May 25, 2016 17:50
--- NOTE | 2016-05-25 23:34 | Pulmonology Progress Note ---
Assessment/Plan Problems: (1) Cirrhosis of liver (2) Deep venous thrombosis of axillary vein (3) ESRD (end stage renal disease) (4) Hypothyroidism (5) Hemorrhage from arteriovenous dialysis graft (6) Ascites Assessment/Plan for paracentesis HD by nephrology f/u by vascular pain control transfuse when Hem< 7 med/surg dc planning Subjective ROS Limited/Unobtainable: No Constitutional: Reports: anorexia, fatigue Gastrointestinal/Abdominal: Reports: bloating, nausea, vomiting Allergies: Coded Allergies: No Known Allergies (Unverified , 09/20/15) Objective Last 24 Hour Vital Signs Date Time Temp Pulse Resp B/P Pulse Ox O2 Delivery O2 Flow Rate FiO2 05/25/16 20:13 98.1 88 20 153/88 94 Room Air 05/25/16 17:53 85 156/86 05/25/16 16:13 98.1 85 22 156/86 93 Room Air 05/25/16 13:31 86 164/92 05/25/16 12:00 98.1 05/25/16 12:00 84 18 148/78 100 Room Air 05/25/16 11:13 97.8 89 20 100 Nasal Cannula 3.0 68 100 05/25/16 08:56 84 140/75 05/25/16 08:54 84 140/75 05/25/16 08:54 84 140/75 05/25/16 07:50 98.2 82 19 157/80 97 Room Air 05/25/16 06:30 98.2 05/25/16 04:00 98.2 92 19 146/92 93 Room Air 05/25/16 01:14 166/97 05/25/16 00:00 98.1 93 20 166/97 94 Room Air Intake and Output 05/24/16 05/25/16 19:00 07:00 Intake Total 240 ml Output Total 2300 ml Balance -2060 ml Intake Oral 240 ml Hemodialysis UF 2300 ml # Voids 1 # Bowel Movements 1 General Appearance: no acute distress HEENT: normocephalic, atraumatic, anicteric, PERRL Respiratory/Chest: chest wall non-tender, decreased breath sounds, accessory muscle use Breasts: no masses Cardiovascular: normal peripheral pulses, normal rate, regular rhythm, no JVD Abdomen: hypoactive bowel sounds, distended, guarding, tender, rebound tenderness, hepatomegaly Genitourinary: normal external genitalia Extremities: no cyanosis Skin: rash, lesions Neurologic/Psychiatric: educational specialist II-XII grossly normal, no motor/sensory deficits Musculoskeletal: other Laboratory Tests 05/25/16 07:45: White Blood Count 6.0, Red Blood Count 2.86L, Hemoglobin 8.7L, Hematocrit 27.6L , Mean Corpuscular Volume 97, Mean Corpuscular Hemoglobin 30.5, Mean Corpuscular Hemoglobin Concent 31.6L, Red Cell Distribution Width 17.7H, Platelet Count 106L, Mean Platelet Volume 6.4L, Neutrophils (%) (Auto) 55.4, Lymphocytes (%) (Auto) 28.7, Monocytes (%) (Auto) 8.0, Eosinophils (%) (Auto) 7.5H, Basophils (%) (Auto) 0.5, Sodium Level 140, Potassium Level 3.7, Chloride Level 94L, Carbon Dioxide Level 32H, Anion Gap 14, Blood Urea Nitrogen 26H, Creatinine 4.1H, Estimat Glomerular Filtration Rate 13.5, Glucose Level 90, Calcium Level 8.0L Current Medications Medications (Trade) Dose Ordered Sig/Ranjan Route PRN Reason Start Time Stop Time Status Last Admin Dose Admin Acetaminophen (Tylenol) 500 mg Q6H PRN ORAL Mild Pain/Temp > 100.5 05/24/16 15:00 06/23/16 14:59 Amlodipine Besylate (Norvasc) 10 mg DAILY ORAL 05/25/16 09:00 06/24/16 08:59 05/25/16 08:56 Clonidine HCl (Catapres) 0.1 mg Q4H PRN ORAL SBP>160 05/24/16 15:00 06/23/16 14:59 05/25/16 01:14 Dextrose (Dextrose 50%) STAT PRN IV Hypoglycemia 05/25/16 15:00 06/24/16 14:59 Diphenhydramine HCl (Benadryl) 25 mg Q4H PRN IVP Itching 05/24/16 15:30 06/23/16 15:29 05/25/16 21:24 Metoclopramide HCl (Reglan) 5 mg TID ORAL 05/24/16 18:00 06/23/16 17:59 05/25/16 17:54 Morphine Sulfate (Morphine Sulfate) 2 mg Q4H PRN IVP Severe Pain (Pain Scale 7-10) 05/24/16 15:00 05/31/16 14:59 05/25/16 21:24 Ondansetron HCl (Zofran) 4 mg Q6H PRN IVP Nausea & Vomiting 05/24/16 15:00 06/23/16 14:59 Pantoprazole (Protonix) 40 mg DAILY ORAL 05/25/16 09:00 06/24/16 08:59 05/25/16 08:58 Polyethylene Glycol (Miralax) 17 gm DAILYPRN PRN ORAL Constipation 05/24/16 15:00 06/23/16 14:59 Propranolol HCl (Inderal) 25 mg TID ORAL 05/25/16 09:00 06/24/16 08:59 05/25/16 17:53 Rifaximin (Xifaxan) 550 mg EVERY 12 HOURS ORAL 05/24/16 21:00 05/31/16 20:59 05/25/16 21:23 Sevelamer Carbonate (Renvela) 1,600 mg THREE TIMES A DAY ORAL 05/24/16 18:00 06/23/16 17:59 05/25/16 17:54 Tramadol HCl (Ultram) 50 mg Q6H PRN ORAL Moderate Pain (Pain Scale 4-6) 05/24/16 15:00 05/31/16 14:59 Zolpidem Tartrate (Ambien) 5 mg HSPRN PRN ORAL Insomnia 05/24/16 21:00 06/23/16 20:59 05/24/16 22:36 ANN MARIE OSULLIVAN May 25, 2016 23:34
[2016-05-26] VITALS (7 sets, daily range): BP systolic 130–170; BP diastolic 73–92
[2016-05-26] MEDS: Zolpidem 5mg tab ORAL PRN (00:26)
[2016-05-26] MEDS: DiphenhydrAMINE 50mg/ml Inj IVP PRN ×5 (01:53→20:44)
[2016-05-26] MEDS: Morphine Sulfate 2mg/ml Inj IVP PRN ×2 (01:53→06:06)
[2016-05-26 07:27] LABS: BASOPHILS % (AUTO) 0.5 % (0.0-2.0); EOSINOPHILS % (AUTO) 6.7 % (0.0-3.0); LYMPHOCYTES % (AUTO) 23.8 % (20.0-45.0); MEAN CORPUSCULAR HEMOGLOBIN 30.9 PG (27.0-31.0); MEAN CORPUSCULAR HGB CONC 31.9 G/DL (32.0-36.0); MEAN CORPUSCULAR VOLUME 97 FL (80-99); MEAN PLATELET VOLUME 5.9 FL (6.5-10.1); MONOCYTES % (AUTO) 7.1 % (1.0-10.0); NEUTROPHILS % (AUTO) 61.9 % (45.0-75.0); PLATELET COUNT 130 K/UL (150-450); RED BLOOD COUNT 2.96 M/UL (4.20-5.40); RED CELL DISTRIBUTION WIDTH 17.6 % (11.6-14.8); WHITE BLOOD COUNT 6.6 K/UL (4.8-10.8)
[2016-05-26 07:37] LABS: CALCIUM 8.3 mg/dL (8.6-10.2); CREATININE 5.1 mg/dL (0.5-0.9); GLOMERULAR FILTRATION RATE 10.4 mL/min (>60); POTASSIUM 4.6 mEQ/L (3.4-4.9)
[2016-05-26] MEDS: Rifaximin 550mg tab ORAL SCH ×2 (08:08→20:43)
[2016-05-26] MEDS: Propranolol 10mg tab ORAL SCH ×3 (08:08→17:40)
--- NOTE | 2016-05-26 08:36 | General Progress Note ---
Assessment/Plan Assessment/Plan ASSESSMENT: 1. Right upper extremitiy dvt - at this time, coumadin is on hold given recent hemorrhage, hgb must first be stable before restarting anticoag 2. Anemia on chronic kidney disease. ferritin 706, esr elevated, on epo 3. 12 mm nodule in the liver 4. Elevated tumor markers. The patient with a history of elevated tumor markers, CA-199 and CA-125 were elevated. An imaging CT scan shows potential sclerosis versus metastatic neoplasm, metabolic abnormality, in addition 12 mm enhancing nodule noted nonspecific and liver, which will need to be followed up. Skeletal survey nonspecific and to obtain NM scan shows no evidence of malignancy. Ascitic results show no abnormalities 5. History of alcohol abuse. 6. Abdominal pain. 7. Atelectasis. 8. Pulmonary edema. 9. Ascites. RECOMMENDATION: 1. Holding coumadin given anemia 2. Continue epogen sq 3. Imaging of the liver nodule every six months per GI service to monitor nodule growth every six months, which is 12 mm, which will need to be followed up 4. Peripheral smear shows no abnormalities 5. Hemodialysis 3x a week 6. Appreciate pulm and nephro recs 7. Hgb goal >8 given esrd 8. Follow from heme perspective Subjective Constitutional: Reports: no symptoms HEENT: Reports: no symptoms Cardiovascular: Reports: no symptoms Respiratory: Reports: no symptoms Gastrointestinal/Abdominal: Reports: no symptoms Genitourinary: Reports: no symptoms Neurologic/Psychiatric: Reports: no symptoms Endocrine: Reports: no symptoms Hematologic/Lymphatic: Reports: anemia Allergies: Coded Allergies: No Known Allergies (Unverified , 09/20/15) Subjective stable, no events, no fevers or chills, no bleeding noted Objective Last 24 Hour Vital Signs Date Time Temp Pulse Resp B/P Pulse Ox O2 Delivery O2 Flow Rate FiO2 05/26/16 08:25 97.3 79 14 137/75 98 05/26/16 08:09 78 137/75 05/26/16 08:08 78 137/75 05/26/16 06:55 97.9 05/26/16 04:00 97.9 85 19 147/73 93 Room Air 05/26/16 00:29 98.9 86 19 158/82 97 Room Air 05/26/16 00:00 95.9 86 19 170/92 97 Room Air 05/25/16 20:13 98.1 88 20 153/88 94 Room Air 05/25/16 17:53 85 156/86 05/25/16 16:13 98.1 85 22 156/86 93 Room Air 05/25/16 13:31 86 164/92 05/25/16 12:00 98.1 05/25/16 12:00 84 18 148/78 100 Room Air 05/25/16 11:13 97.8 89 20 100 Nasal Cannula 3.0 68 100 05/25/16 08:56 84 140/75 05/25/16 08:54 84 140/75 05/25/16 08:54 84 140/75 Intake and Output 05/25/16 05/26/16 19:00 07:00 Intake Total 360 ml 260 ml Output Total 100 ml Balance 260 ml 260 ml Intake Oral 360 ml 260 ml Output Urine Total 100 ml # Voids 1 Laboratory Tests 05/26/16 05:30: White Blood Count 6.6, Red Blood Count 2.96L, Hemoglobin 9.2L, Hematocrit 28.7L , Mean Corpuscular Volume 97, Mean Corpuscular Hemoglobin 30.9, Mean Corpuscular Hemoglobin Concent 31.9L, Red Cell Distribution Width 17.6H, Platelet Count 130L, Mean Platelet Volume 5.9L, Neutrophils (%) (Auto) 61.9, Lymphocytes (%) (Auto) 23.8, Monocytes (%) (Auto) 7.1, Eosinophils (%) (Auto) 6.7H, Basophils (%) (Auto) 0.5, Sodium Level 142, Potassium Level 4.6, Chloride Level 96L, Carbon Dioxide Level 32H, Anion Gap 14, Blood Urea Nitrogen 36H, Creatinine 5.1H, Estimat Glomerular Filtration Rate 10.4, Glucose Level 73L, Calcium Level 8.3L Height (Feet): 5 Height (Inches): 1.00 Weight (Pounds): 124 General Appearance: alert EENT: TMs normal Neck: supple Cardiovascular: regular rhythm Respiratory/Chest: lungs clear Abdomen: non tender Pelvis: normal rectal exam Edema: 1+ Leg (L), 1+ Leg (R) Edema: mild edema Neurologic: alert Fabrizio Tobar May 26, 2016 08:36
--- NOTE | 2016-05-26 10:08 | GI Progress Note ---
Assessment/Plan Problems: (1) Abnormal LFTs ICD Codes: R79.89 - Other specified abnormal findings of blood chemistry SNOMED: 407350986 (2) H/O ETOH abuse ICD Codes: Z87.898 - Personal history of other specified conditions SNOMED: 702911666 (3) GERD (gastroesophageal reflux disease) ICD Codes: K21.9 - Gastro-esophageal reflux disease without esophagitis SNOMED: 198275501 (4) Cirrhosis of liver ICD Codes: K74.60 - Unspecified cirrhosis of liver SNOMED: 64217513 (5) Hypothyroidism ICD Codes: E03.9 - Hypothyroidism, unspecified SNOMED: 20204565 (6) Anemia ICD Codes: D64.9 - Anemia, unspecified SNOMED: 131666437 (7) Abdominal pain ICD Codes: R10.9 - Unspecified abdominal pain SNOMED: 76545389 Status: stable Status Narrative Discussed with Dr. Reyes. Assessment/Plan CA19-9 >> 78.93 (from previous admission 04/18/16) CEA >> 2.1 AFP >> WNL CA 125-5 >> 80.4 H Hep B core positive GGTP >> WNL s/p EGD>> biopsy results >> mild chronic antral gastritis abd U/S reviewed >> left pleural effusion, see full report. s/p paracentesis >> 5.6 L yield ok for DC per GI standpoint elevated ammonia >> lactulose + Xifaxan consider dc propranolol, pt does not have varices based on last EGD renal diet bowel regime ppi fu H&H, transfuse PRN recommend outpatient liver transplant referral Subjective Gastrointestinal/Abdominal: Reports: abdominal pain - ascities Objective Last 24 Hour Vital Signs Date Time Temp Pulse Resp B/P Pulse Ox O2 Delivery O2 Flow Rate FiO2 05/26/16 08:25 97.3 79 14 137/75 98 05/26/16 08:09 78 137/75 05/26/16 08:08 78 137/75 05/26/16 06:55 97.9 05/26/16 04:00 97.9 85 19 147/73 93 Room Air 05/26/16 00:29 98.9 86 19 158/82 97 Room Air 05/26/16 00:00 95.9 86 19 170/92 97 Room Air 05/25/16 20:13 98.1 88 20 153/88 94 Room Air 05/25/16 17:53 85 156/86 05/25/16 16:13 98.1 85 22 156/86 93 Room Air 05/25/16 13:31 86 164/92 05/25/16 12:00 98.1 05/25/16 12:00 84 18 148/78 100 Room Air 05/25/16 11:13 97.8 89 20 100 Nasal Cannula 3.0 68 100 Intake and Output 05/25/16 05/26/16 19:00 07:00 Intake Total 360 ml 260 ml Output Total 100 ml Balance 260 ml 260 ml Intake Oral 360 ml 260 ml Output Urine Total 100 ml # Voids 1 Laboratory Tests Test 05/26/16 05:30 White Blood Count 6.6 K/UL (4.8-10.8) Red Blood Count 2.96 M/UL (4.20-5.40) L Hemoglobin 9.2 G/DL (12.0-16.0) L Hematocrit 28.7 % (37.0-47.0) L Mean Corpuscular Volume 97 FL (80-99) Mean Corpuscular Hemoglobin 30.9 PG (27.0-31.0) Mean Corpuscular Hemoglobin Concent 31.9 G/DL (32.0-36.0) L Red Cell Distribution Width 17.6 % (11.6-14.8) H Platelet Count 130 K/UL (150-450) L Mean Platelet Volume 5.9 FL (6.5-10.1) L Neutrophils (%) (Auto) 61.9 % (45.0-75.0) Lymphocytes (%) (Auto) 23.8 % (20.0-45.0) Monocytes (%) (Auto) 7.1 % (1.0-10.0) Eosinophils (%) (Auto) 6.7 % (0.0-3.0) H Basophils (%) (Auto) 0.5 % (0.0-2.0) Sodium Level 142 mEQ/L (135-145) Potassium Level 4.6 mEQ/L (3.4-4.9) Chloride Level 96 mEQ/L (98-107) L Carbon Dioxide Level 32 mEQ/L (20-30) H Anion Gap 14 (5-15) Blood Urea Nitrogen 36 mg/dL (7-23) H Creatinine 5.1 mg/dL (0.5-0.9) H Estimat Glomerular Filtration Rate 10.4 mL/min (>60) Glucose Level 73 mg/dL (74-106) L Calcium Level 8.3 mg/dL (8.6-10.2) L Height (Feet): 5 Height (Inches): 1.00 Weight (Pounds): 124 General Appearance: no apparent distress, alert Cardiovascular: normal rate Respiratory/Chest: normal breath sounds, no respiratory distress Abdominal Exam: ascites Autumn Lutz N.P. May 26, 2016 10:08
--- NOTE | 2016-05-26 10:18 | General Progress Note ---
Assessment/Plan Status: stable Assessment/Plan status: ESRD- hemmorrhage from right arm graft Anemia Ascitis- DM HTN At Fib Plan: Vascular surgical eval noted Permacath and dialysis done last dialysis 05/24 and transfuse- next 05/25 starting shortly optimize cardiac and pulmonary status- BP meds adjustment- 2 D Echo previous admission: Left ventricular ejection fraction estimated to be 70 %. Monitor lytes and renal parameters- Per consultants Transfused Paracynthesis, Ascitis aspiration as needed Subjective ROS Limited/Unobtainable: No Constitutional: Reports: malaise Allergies: Coded Allergies: No Known Allergies (Unverified , 09/20/15) Objective Last 24 Hour Vital Signs Date Time Temp Pulse Resp B/P Pulse Ox O2 Delivery O2 Flow Rate FiO2 05/26/16 08:25 97.3 79 14 137/75 98 05/26/16 08:09 78 137/75 05/26/16 08:08 78 137/75 05/26/16 06:55 97.9 05/26/16 04:00 97.9 85 19 147/73 93 Room Air 05/26/16 00:29 98.9 86 19 158/82 97 Room Air 05/26/16 00:00 95.9 86 19 170/92 97 Room Air 05/25/16 20:13 98.1 88 20 153/88 94 Room Air 05/25/16 17:53 85 156/86 05/25/16 16:13 98.1 85 22 156/86 93 Room Air 05/25/16 13:31 86 164/92 05/25/16 12:00 98.1 05/25/16 12:00 84 18 148/78 100 Room Air 05/25/16 11:13 97.8 89 20 100 Nasal Cannula 3.0 68 100 Intake and Output 05/25/16 05/26/16 19:00 07:00 Intake Total 360 ml 260 ml Output Total 100 ml Balance 260 ml 260 ml Intake Oral 360 ml 260 ml Output Urine Total 100 ml # Voids 1 Laboratory Tests 05/26/16 05:30: White Blood Count 6.6, Red Blood Count 2.96L, Hemoglobin 9.2L, Hematocrit 28.7L , Mean Corpuscular Volume 97, Mean Corpuscular Hemoglobin 30.9, Mean Corpuscular Hemoglobin Concent 31.9L, Red Cell Distribution Width 17.6H, Platelet Count 130L, Mean Platelet Volume 5.9L, Neutrophils (%) (Auto) 61.9, Lymphocytes (%) (Auto) 23.8, Monocytes (%) (Auto) 7.1, Eosinophils (%) (Auto) 6.7H, Basophils (%) (Auto) 0.5, Sodium Level 142, Potassium Level 4.6, Chloride Level 96L, Carbon Dioxide Level 32H, Anion Gap 14, Blood Urea Nitrogen 36H, Creatinine 5.1H, Estimat Glomerular Filtration Rate 10.4, Glucose Level 73L, Calcium Level 8.3L Height (Feet): 5 Height (Inches): 1.00 Weight (Pounds): 124 General Appearance: no apparent distress Objective other PE not changed PEPE MONTERROSO May 26, 2016 10:18
[2016-05-26] MEDS: Hydromorphone 0.5mg/0.5ml inj IVP PRN ×3 (10:27→20:44)
--- NOTE | 2016-05-26 16:44 | Internal Med Progress Note ---
Subjective Date of Service: May 26, 2016 Physician Name AlvarezJavier mcmillan Attending Physician Jackson Albright MD Current Medications Medications (Trade) Dose Ordered Sig/Ranjan Route PRN Reason Start Time Stop Time Status Last Admin Dose Admin Acetaminophen (Tylenol) 500 mg Q6H PRN ORAL Mild Pain/Temp > 100.5 05/24/16 15:00 06/23/16 14:59 Amlodipine Besylate (Norvasc) 10 mg DAILY ORAL 05/25/16 09:00 06/24/16 08:59 05/26/16 08:09 Clonidine HCl (Catapres) 0.1 mg Q4H PRN ORAL SBP>160 05/24/16 15:00 06/23/16 14:59 05/25/16 01:14 Dextrose (Dextrose 50%) STAT PRN IV Hypoglycemia 05/25/16 15:00 06/24/16 14:59 Diphenhydramine HCl (Benadryl) 25 mg Q4H PRN IVP Itching 05/24/16 15:30 06/23/16 15:29 05/26/16 16:15 Epoetin Vikas (Procrit (for ESRD on dialysis)) 10,000 units SUN-SUN-SUN SUBQ 05/26/16 21:00 06/25/16 20:59 Hydromorphone HCl (Dilaudid) 0.5 mg Q4H PRN IVP Severe Pain (Pain Scale 7-10) 05/26/16 10:30 06/02/16 10:29 05/26/16 16:16 Metoclopramide HCl (Reglan) 5 mg TID ORAL 05/24/16 18:00 06/23/16 17:59 05/26/16 12:40 Ondansetron HCl (Zofran) 4 mg Q6H PRN IVP Nausea & Vomiting 05/24/16 15:00 06/23/16 14:59 Pantoprazole (Protonix) 40 mg DAILY ORAL 05/25/16 09:00 06/24/16 08:59 05/26/16 08:09 Polyethylene Glycol (Miralax) 17 gm DAILYPRN PRN ORAL Constipation 05/24/16 15:00 06/23/16 14:59 Propranolol HCl (Inderal) 25 mg TID ORAL 05/25/16 09:00 06/24/16 08:59 05/26/16 08:08 Rifaximin (Xifaxan) 550 mg EVERY 12 HOURS ORAL 05/24/16 21:00 05/31/16 20:59 05/26/16 08:08 Sevelamer Carbonate (Renvela) 1,600 mg THREE TIMES A DAY ORAL 05/24/16 18:00 06/23/16 17:59 05/26/16 08:09 Tramadol HCl (Ultram) 50 mg Q6H PRN ORAL Moderate Pain (Pain Scale 4-6) 05/24/16 15:00 05/31/16 14:59 Zolpidem Tartrate (Ambien) 5 mg HSPRN PRN ORAL Insomnia 05/24/16 21:00 06/23/16 20:59 05/26/16 00:26 Allergies: Coded Allergies: No Known Allergies (Unverified , 09/20/15) ROS Limited/Unobtainable: No Constitutional: Reports: no symptoms HEENT: Reports: no symptoms Cardiovascular: Reports: no symptoms Respiratory: Reports: no symptoms Gastrointestinal/Abdominal: Reports: no symptoms Genitourinary: Reports: no symptoms Neurologic/Psychiatric: Reports: no symptoms Subjective 61 YO F admitted with dialysis shunt hemorrhage. S/P paracentesis 05/23/16. S/P Tunneled cath placement 05/22/16. Cover for [facility]-Dr Albright. Objective Last Vital Signs Date Time Temp Pulse Resp B/P Pulse Ox O2 Delivery O2 Flow Rate FiO2 05/26/16 16:38 98.4 91 20 154/88 95 Room Air 05/25/16 11:13 3.0 Laboratory Tests Test 05/26/16 05:30 White Blood Count 6.6 K/UL (4.8-10.8) Red Blood Count 2.96 M/UL (4.20-5.40) L Hemoglobin 9.2 G/DL (12.0-16.0) L Hematocrit 28.7 % (37.0-47.0) L Mean Corpuscular Volume 97 FL (80-99) Mean Corpuscular Hemoglobin 30.9 PG (27.0-31.0) Mean Corpuscular Hemoglobin Concent 31.9 G/DL (32.0-36.0) L Red Cell Distribution Width 17.6 % (11.6-14.8) H Platelet Count 130 K/UL (150-450) L Mean Platelet Volume 5.9 FL (6.5-10.1) L Neutrophils (%) (Auto) 61.9 % (45.0-75.0) Lymphocytes (%) (Auto) 23.8 % (20.0-45.0) Monocytes (%) (Auto) 7.1 % (1.0-10.0) Eosinophils (%) (Auto) 6.7 % (0.0-3.0) H Basophils (%) (Auto) 0.5 % (0.0-2.0) Sodium Level 142 mEQ/L (135-145) Potassium Level 4.6 mEQ/L (3.4-4.9) Chloride Level 96 mEQ/L (98-107) L Carbon Dioxide Level 32 mEQ/L (20-30) H Anion Gap 14 (5-15) Blood Urea Nitrogen 36 mg/dL (7-23) H Creatinine 5.1 mg/dL (0.5-0.9) H Estimat Glomerular Filtration Rate 10.4 mL/min (>60) Glucose Level 73 mg/dL (74-106) L Calcium Level 8.3 mg/dL (8.6-10.2) L Intake and Output 05/25/16 05/26/16 19:00 07:00 Intake Total 360 ml 260 ml Output Total 100 ml Balance 260 ml 260 ml Intake Oral 360 ml 260 ml Output Urine Total 100 ml # Voids 1 Objective General Appearance: WD/WN, alert, mild distress EENT: PERRL/EOMI, normal ENT inspection Neck: non-tender, normal alignment, supple Cardiovascular: normal peripheral pulses, normal rate, regular rhythm, no gallop/murmur, no JVD Respiratory/Chest: chest wall non-tender, lungs clear, normal breath sounds, no respiratory distress, no accessory muscle use Abdomen: normal bowel sounds, non tender, soft, no organomegaly, no mass Extremities: normal range of motion, other - Dressing A/V graft Neurologic: surgical sales representative II-XII grossly normal, no motor/sensory deficits Skin: normal pigmentation, warm/dry Assessment/Plan Problem List: (1) Malfunction of arteriovenous dialysis fistula Assessment & Plan: S/P hemorrhage. See vascular surgery consult. S/P Tunneled Permacath 05/22/16. (2) Anemia Assessment & Plan: Worsening. Type and cross 2 units PRBC for possible transfusion today. Blood loss secondary to A/V graft hemorrhage. S/P transfurion 2 unit PRBC and 2 units FFP. See Hematology note. (3) ESRD (end stage renal disease) Assessment & Plan: See nephrology note. Hemodialysis today 05/24/16 per nephrology (4) HTN (hypertension) Assessment & Plan: Cont propranolol and norvasc. (5) Cirrhosis of liver (6) H/O ETOH abuse (7) Ascites Assessment & Plan: S/P paracentesis . Await results. (8) CHF (congestive heart failure) (9) Deep venous thrombosis of axillary vein Assessment & Plan: Hold anticoagulation due to hemorrrhage. See Hematology ( Bhavin) and vasc surgery (Lacho) consults. Assessment/Plan Discharge planning: Home in am 05/27/16 with trading analyst. Will need transportation from home to [facility] on Sunday05/29/16 JAVIER ALVAREZ May 26, 2016 16:44
--- NOTE | 2016-05-26 20:44 | Pulmonology Progress Note ---
Assessment/Plan Problems: (1) Cirrhosis of liver (2) Deep venous thrombosis of axillary vein (3) ESRD (end stage renal disease) (4) Hypothyroidism (5) Hemorrhage from arteriovenous dialysis graft (6) Ascites Assessment/Plan for paracentesis HD by nephrology f/u by vascular pain control transfuse when Hem< 7 med/surg dc planning Subjective Allergies: Coded Allergies: No Known Allergies (Unverified , 09/20/15) Objective Last 24 Hour Vital Signs Date Time Temp Pulse Resp B/P Pulse Ox O2 Delivery O2 Flow Rate FiO2 05/26/16 19:33 98.2 86 19 147/81 93 Room Air 05/26/16 17:40 91 154/88 05/26/16 16:38 98.4 91 20 154/88 95 Room Air 05/26/16 15:30 Room Air 05/26/16 12:25 Room Air 05/26/16 11:26 97.7 76 16 130/78 97 Room Air 05/26/16 08:25 97.3 79 14 137/75 98 05/26/16 08:09 78 137/75 05/26/16 08:08 78 137/75 05/26/16 06:55 97.9 05/26/16 04:00 97.9 85 19 147/73 93 Room Air 05/26/16 00:29 98.9 86 19 158/82 97 Room Air 05/26/16 00:00 95.9 86 19 170/92 97 Room Air Intake and Output 05/25/16 05/26/16 19:00 07:00 Intake Total 360 ml 260 ml Output Total 100 ml Balance 260 ml 260 ml Intake Oral 360 ml 260 ml Output Urine Total 100 ml # Voids 1 General Appearance: no acute distress HEENT: normocephalic, atraumatic, PERRL Respiratory/Chest: chest wall non-tender, decreased breath sounds, accessory muscle use Breasts: no masses Cardiovascular: normal peripheral pulses, normal rate, regular rhythm, no JVD Abdomen: normal bowel sounds, soft, non tender, no organomegaly Genitourinary: normal external genitalia Extremities: no cyanosis Skin: rash, lesions Neurologic/Psychiatric: tire buffer II-XII grossly normal, no motor/sensory deficits Lymphatic: other - axillary adenopathy + Laboratory Tests 05/26/16 05:30: White Blood Count 6.6, Red Blood Count 2.96L, Hemoglobin 9.2L, Hematocrit 28.7L , Mean Corpuscular Volume 97, Mean Corpuscular Hemoglobin 30.9, Mean Corpuscular Hemoglobin Concent 31.9L, Red Cell Distribution Width 17.6H, Platelet Count 130L, Mean Platelet Volume 5.9L, Neutrophils (%) (Auto) 61.9, Lymphocytes (%) (Auto) 23.8, Monocytes (%) (Auto) 7.1, Eosinophils (%) (Auto) 6.7H, Basophils (%) (Auto) 0.5, Sodium Level 142, Potassium Level 4.6, Chloride Level 96L, Carbon Dioxide Level 32H, Anion Gap 14, Blood Urea Nitrogen 36H, Creatinine 5.1H, Estimat Glomerular Filtration Rate 10.4, Glucose Level 73L, Calcium Level 8.3L Current Medications Medications (Trade) Dose Ordered Sig/Ranjan Route PRN Reason Start Time Stop Time Status Last Admin Dose Admin Acetaminophen (Tylenol) 500 mg Q6H PRN ORAL Mild Pain/Temp > 100.5 05/24/16 15:00 06/23/16 14:59 Amlodipine Besylate (Norvasc) 10 mg DAILY ORAL 05/25/16 09:00 06/24/16 08:59 05/26/16 08:09 Clonidine HCl (Catapres) 0.1 mg Q4H PRN ORAL SBP>160 05/24/16 15:00 06/23/16 14:59 05/25/16 01:14 Dextrose (Dextrose 50%) STAT PRN IV Hypoglycemia 05/25/16 15:00 06/24/16 14:59 Diphenhydramine HCl (Benadryl) 25 mg Q4H PRN IVP Itching 05/24/16 15:30 06/23/16 15:29 05/26/16 16:15 Epoetin Vikas (Procrit (for ESRD on dialysis)) 10,000 units SUN-SUN-SUN SUBQ 05/26/16 21:00 06/25/16 20:59 Hydromorphone HCl (Dilaudid) 0.5 mg Q4H PRN IVP Severe Pain (Pain Scale 7-10) 05/26/16 10:30 06/02/16 10:29 05/26/16 16:16 Metoclopramide HCl (Reglan) 5 mg TID ORAL 05/24/16 18:00 06/23/16 17:59 05/26/16 17:40 Ondansetron HCl (Zofran) 4 mg Q6H PRN IVP Nausea & Vomiting 05/24/16 15:00 06/23/16 14:59 Pantoprazole (Protonix) 40 mg DAILY ORAL 05/25/16 09:00 06/24/16 08:59 05/26/16 08:09 Polyethylene Glycol (Miralax) 17 gm DAILYPRN PRN ORAL Constipation 05/24/16 15:00 06/23/16 14:59 Propranolol HCl (Inderal) 25 mg TID ORAL 05/25/16 09:00 06/24/16 08:59 05/26/16 17:40 Rifaximin (Xifaxan) 550 mg EVERY 12 HOURS ORAL 05/24/16 21:00 05/31/16 20:59 05/26/16 08:08 Sevelamer Carbonate (Renvela) 1,600 mg THREE TIMES A DAY ORAL 05/24/16 18:00 06/23/16 17:59 05/26/16 17:40 Tramadol HCl (Ultram) 50 mg Q6H PRN ORAL Moderate Pain (Pain Scale 4-6) 05/24/16 15:00 05/31/16 14:59 Zolpidem Tartrate (Ambien) 5 mg HSPRN PRN ORAL Insomnia 05/24/16 21:00 06/23/16 20:59 05/26/16 00:26 ANN MARIE OSULLIVAN May 26, 2016 20:44
[2016-05-26] MEDS ORDERED: Epogen (for ESRD on dialysis) SUBQ SCH (21:00)
[2016-05-27] VITALS (8 sets, daily range): BP systolic 135–161; BP diastolic 77–94
[2016-05-27] MEDS: DiphenhydrAMINE 50mg/ml Inj IVP PRN ×4 (01:03→22:27)
[2016-05-27] MEDS: Hydromorphone 0.5mg/0.5ml inj IVP PRN ×5 (01:03→21:24)
[2016-05-27 07:09] LABS: MEAN CORPUSCULAR HGB CONC 30.6 G/DL (32.0-36.0); MEAN CORPUSCULAR VOLUME 98 FL (80-99); MEAN PLATELET VOLUME 6.2 FL (6.5-10.1); PLATELET COUNT 121 K/UL (150-450); RED BLOOD COUNT 2.63 M/UL (4.20-5.40); RED CELL DISTRIBUTION WIDTH 17.3 % (11.6-14.8); WHITE BLOOD COUNT 6.3 K/UL (4.8-10.8)
[2016-05-27 07:25] LABS: ALBUMIN/GLOBULIN RATIO 0.6 (1.0-2.7); CALCIUM 8.2 mg/dL (8.6-10.2); CREATININE 4.4 mg/dL (0.5-0.9); GLOMERULAR FILTRATION RATE 12.4 mL/min (>60); MAGNESIUM 1.7 mg/dL (1.7-2.5); PHOSPHORUS 5.1 mg/dL (2.5-4.8); POTASSIUM 3.9 mEQ/L (3.4-4.9); TOTAL PROTEIN 6.6 g/dL (6.6-8.7)
[2016-05-27 09:23] LABS: ANISOCYTOSIS 1+; BAND NEUTROPHILS % (MANUAL) 0 % (0-8); BASOPHILS % (MANUAL) 0 % (0-2); EOSINOPHILS % (MANUAL) 4 % (0-3); HYPOCHROMASIA 1+; LYMPHOCYTES % (MANUAL) 22 % (20-45); NEUTROPHILS % (MANUAL) 62 % (45-75); PLATELET ESTIMATE DECREASED; PLATELET MORPHOLOGY NORMAL; TOTAL CELLS COUNTED 100
[2016-05-27] MEDS: Propranolol 10mg tab ORAL SCH ×3 (10:35→17:11)
[2016-05-27] MEDS: Rifaximin 550mg tab ORAL SCH ×2 (10:41→21:04)
--- NOTE | 2016-05-27 15:06 | General Progress Note ---
Assessment/Plan Status: unchanged Status Narrative Hgb lower Assessment/Plan status: ESRD- hemmorrhage from right arm graft Anemia Ascitis- DM HTN At Fib Plan: last dialysis 05/26 Placement issues- recheck Hgb in am and transfuse if needed Vascular surgical eval noted Has permacath optimize cardiac and pulmonary status- BP meds adjustment- 2 D Echo previous admission: Left ventricular ejection fraction estimated to be 70 %. Monitor lytes and renal parameters- Per consultants Transfused Paracynthesis, Ascitis aspiration as needed Subjective ROS Limited/Unobtainable: No Constitutional: Reports: malaise, weakness Allergies: Coded Allergies: No Known Allergies (Unverified , 09/20/15) Objective Last 24 Hour Vital Signs Date Time Temp Pulse Resp B/P Pulse Ox O2 Delivery O2 Flow Rate FiO2 05/27/16 14:52 91 149/94 05/27/16 11:43 97.1 92 19 161/85 99 Room Air 05/27/16 10:40 92 161/89 05/27/16 10:35 92 161/89 05/27/16 08:18 96.6 87 20 157/85 98 Room Air 05/27/16 04:00 97.9 89 20 148/87 95 Room Air 05/27/16 01:08 97.7 86 20 135/77 97 Room Air 05/27/16 01:05 97.9 86 20 135/77 97 Room Air 05/27/16 00:00 97.7 86 20 135/77 97 Room Air 05/26/16 19:33 98.2 86 19 147/81 93 Room Air 05/26/16 17:40 91 154/88 05/26/16 16:38 98.4 91 20 154/88 95 Room Air 05/26/16 15:30 Room Air Intake and Output 05/26/16 05/27/16 19:00 07:00 Intake Total 1160 ml 120 ml Output Total 2400 ml Balance -1240 ml 120 ml Intake Oral 1160 ml 120 ml Output Urine Total 100 ml Hemodialysis UF 2300 ml # Voids 1 1 Laboratory Tests 05/27/16 06:00: White Blood Count 6.3, Red Blood Count 2.63L, Hemoglobin 7.9L, Hematocrit 25.8L , Mean Corpuscular Volume 98, Mean Corpuscular Hemoglobin 30.0, Mean Corpuscular Hemoglobin Concent 30.6L, Red Cell Distribution Width 17.3H, Platelet Count 121L, Mean Platelet Volume 6.2L, Neutrophils (%) (Auto) , Lymphocytes (%) (Auto) , Monocytes (%) (Auto) , Eosinophils (%) (Auto) , Basophils (%) (Auto) , Differential Total Cells Counted 100, Neutrophils % ( Manual) 62, Lymphocytes % (Manual) 22, Monocytes % (Manual) 12H, Eosinophils % ( Manual) 4H, Basophils % (Manual) 0, Band Neutrophils 0, Platelet Estimate DecreasedL, Platelet Morphology Normal, Hypochromasia 1+, Anisocytosis 1+, Sodium Level 142, Potassium Level 3.9, Chloride Level 96L, Carbon Dioxide Level 35H, Anion Gap 11, Blood Urea Nitrogen 30H, Creatinine 4.4H, Estimat Glomerular Filtration Rate 12.4, Glucose Level 61L, Calcium Level 8.2L, Phosphorus Level 5.1H, Magnesium Level 1.7, Total Bilirubin 0.4, Aspartate Amino Transf (AST/SGOT ) 15, Alanine Aminotransferase (ALT/SGPT) 5, Alkaline Phosphatase 86, Total Protein 6.6, Albumin 2.6L, Globulin 4.0, Albumin/Globulin Ratio 0.6L Height (Feet): 5 Height (Inches): 1.00 Weight (Pounds): 124 General Appearance: no apparent distress Objective other PE not changed PEPE MONTERROSO May 27, 2016 15:06
--- NOTE | 2016-05-27 15:16 | Internal Med Progress Note ---
Subjective Date of Service: May 27, 2016 Physician Name Javier Alvarez Attending Physician Jackson Albright MD Current Medications Medications (Trade) Dose Ordered Sig/Ranjan Route PRN Reason Start Time Stop Time Status Last Admin Dose Admin Acetaminophen (Tylenol) 500 mg Q6H PRN ORAL Mild Pain/Temp > 100.5 05/24/16 15:00 06/23/16 14:59 Amlodipine Besylate (Norvasc) 10 mg DAILY ORAL 05/25/16 09:00 06/24/16 08:59 05/27/16 10:40 Clonidine HCl (Catapres) 0.1 mg Q4H PRN ORAL SBP>160 05/24/16 15:00 06/23/16 14:59 05/25/16 01:14 Dextrose (Dextrose 50%) STAT PRN IV Hypoglycemia 05/25/16 15:00 06/24/16 14:59 Diphenhydramine HCl (Benadryl) 25 mg Q4H PRN IVP Itching 05/24/16 15:30 06/23/16 15:29 05/27/16 11:11 Epoetin Vikas (Procrit (for ESRD on dialysis)) 10,000 units SUN-SUN-SUN SUBQ 05/26/16 21:00 06/25/16 20:59 05/26/16 20:44 Hydromorphone HCl (Dilaudid) 0.5 mg Q4H PRN IVP Severe Pain (Pain Scale 7-10) 05/26/16 10:30 06/02/16 10:29 05/27/16 11:03 Metoclopramide HCl (Reglan) 5 mg TID ORAL 05/24/16 18:00 06/23/16 17:59 05/27/16 14:51 Ondansetron HCl (Zofran) 4 mg Q6H PRN IVP Nausea & Vomiting 05/24/16 15:00 06/23/16 14:59 Pantoprazole (Protonix) 40 mg DAILY ORAL 05/25/16 09:00 06/24/16 08:59 05/27/16 10:38 Polyethylene Glycol (Miralax) 17 gm DAILYPRN PRN ORAL Constipation 05/24/16 15:00 06/23/16 14:59 Propranolol HCl (Inderal) 25 mg TID ORAL 05/25/16 09:00 06/24/16 08:59 05/27/16 14:52 Rifaximin (Xifaxan) 550 mg EVERY 12 HOURS ORAL 05/24/16 21:00 05/31/16 20:59 05/27/16 10:41 Sevelamer Carbonate (Renvela) 1,600 mg THREE TIMES A DAY ORAL 05/24/16 18:00 06/23/16 17:59 05/27/16 13:38 Tramadol HCl (Ultram) 50 mg Q6H PRN ORAL Moderate Pain (Pain Scale 4-6) 05/24/16 15:00 05/31/16 14:59 Zolpidem Tartrate (Ambien) 5 mg HSPRN PRN ORAL Insomnia 05/24/16 21:00 06/23/16 20:59 05/26/16 00:26 Allergies: Coded Allergies: No Known Allergies (Unverified , 09/20/15) ROS Limited/Unobtainable: No Constitutional: Reports: no symptoms HEENT: Reports: no symptoms Cardiovascular: Reports: no symptoms Respiratory: Reports: no symptoms Gastrointestinal/Abdominal: Reports: no symptoms Genitourinary: Reports: no symptoms Neurologic/Psychiatric: Reports: no symptoms Subjective 61 YO F admitted with dialysis shunt hemorrhage. S/P paracentesis 05/23/16. S/P Tunneled cath placement 05/22/16. Discharge held-patient refused to go to [facility]. Cover for Int Med-Dr Albright. Objective Last Vital Signs Date Time Temp Pulse Resp B/P Pulse Ox O2 Delivery O2 Flow Rate FiO2 05/27/16 14:52 91 149/94 05/27/16 11:43 97.1 19 99 Room Air 05/25/16 11:13 3.0 Laboratory Tests Test 05/27/16 06:00 White Blood Count 6.3 K/UL (4.8-10.8) Red Blood Count 2.63 M/UL (4.20-5.40) L Hemoglobin 7.9 G/DL (12.0-16.0) L Hematocrit 25.8 % (37.0-47.0) L Mean Corpuscular Volume 98 FL (80-99) Mean Corpuscular Hemoglobin 30.0 PG (27.0-31.0) Mean Corpuscular Hemoglobin Concent 30.6 G/DL (32.0-36.0) L Red Cell Distribution Width 17.3 % (11.6-14.8) H Platelet Count 121 K/UL (150-450) L Mean Platelet Volume 6.2 FL (6.5-10.1) L Neutrophils (%) (Auto) % (45.0-75.0) Lymphocytes (%) (Auto) % (20.0-45.0) Monocytes (%) (Auto) % (1.0-10.0) Eosinophils (%) (Auto) % (0.0-3.0) Basophils (%) (Auto) % (0.0-2.0) Differential Total Cells Counted 100 Neutrophils % (Manual) 62 % (45-75) Lymphocytes % (Manual) 22 % (20-45) Monocytes % (Manual) 12 % (1-10) H Eosinophils % (Manual) 4 % (0-3) H Basophils % (Manual) 0 % (0-2) Band Neutrophils 0 % (0-8) Platelet Estimate Decreased L Platelet Morphology Normal Hypochromasia 1+ Anisocytosis 1+ Sodium Level 142 mEQ/L (135-145) Potassium Level 3.9 mEQ/L (3.4-4.9) Chloride Level 96 mEQ/L (98-107) L Carbon Dioxide Level 35 mEQ/L (20-30) H Anion Gap 11 (5-15) Blood Urea Nitrogen 30 mg/dL (7-23) H Creatinine 4.4 mg/dL (0.5-0.9) H Estimat Glomerular Filtration Rate 12.4 mL/min (>60) Glucose Level 61 mg/dL (74-106) L Calcium Level 8.2 mg/dL (8.6-10.2) L Phosphorus Level 5.1 mg/dL (2.5-4.8) H Magnesium Level 1.7 mg/dL (1.7-2.5) Total Bilirubin 0.4 mg/dL (0.0-1.2) Aspartate Amino Transf (AST/SGOT) 15 U/L (5-40) Alanine Aminotransferase (ALT/SGPT) 5 U/L (3-33) Alkaline Phosphatase 86 U/L (35-104) Total Protein 6.6 g/dL (6.6-8.7) Albumin 2.6 g/dL (3.5-5.2) L Globulin 4.0 g/dL Albumin/Globulin Ratio 0.6 (1.0-2.7) L Intake and Output 05/26/16 05/27/16 19:00 07:00 Intake Total 1160 ml 120 ml Output Total 2400 ml Balance -1240 ml 120 ml Intake Oral 1160 ml 120 ml Output Urine Total 100 ml Hemodialysis UF 2300 ml # Voids 1 1 Objective General Appearance: WD/WN, alert, mild distress EENT: PERRL/EOMI, normal ENT inspection Neck: non-tender, normal alignment, supple Cardiovascular: normal peripheral pulses, normal rate, regular rhythm, no gallop/murmur, no JVD Respiratory/Chest: chest wall non-tender, lungs clear, normal breath sounds, no respiratory distress, no accessory muscle use Abdomen: normal bowel sounds, non tender, soft, no organomegaly, no mass Extremities: normal range of motion, other - Dressing A/V graft 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 See vascular surgery consult. S/P Tunneled Permacath 05/22/16. (2) Anemia Assessment & Plan: Worsening. Type and cross 2 units PRBC for possible transfusion today. Blood loss secondary to A/V graft hemorrhage. S/P transfurion 2 unit PRBC and 2 units FFP. See Hematology note. (3) ESRD (end stage renal disease) Assessment & Plan: See nephrology note. Hemodialysis today 05/24/16 per nephrology (4) HTN (hypertension) Assessment & Plan: Cont propranolol and norvasc. (5) Cirrhosis of liver (6) H/O ETOH abuse (7) Ascites Assessment & Plan: S/P paracentesis . Await results. (8) CHF (congestive heart failure) (9) Deep venous thrombosis of axillary vein Assessment & Plan: Hold anticoagulation due to hemorrrhage. See Hematology ( Bhavin) and vasc surgery (Lacho) consults. Assessment/Plan Discharge planning: Discharge to [facility] held. Patient wishes to return home. Daughter wants patient to go to senior care fac. See soc work note. JAVIER ALVAREZ May 27, 2016 15:16
--- NOTE | 2016-05-27 18:43 | Vascular Surgery Progress Note ---
Subjective Subjective No new complaints Still awaiting placement HD via left chest permcath s/p paracentesis Right arm edema resolving Small blister over right arm Objective Objective Last 24 Hour Vital Signs Date Time Temp Pulse Resp B/P Pulse Ox O2 Delivery O2 Flow Rate FiO2 05/27/16 17:41 98.2 05/27/16 17:11 88 155/94 05/27/16 16:00 98.2 88 18 155/94 94 Room Air 05/27/16 14:52 91 149/94 05/27/16 11:43 97.1 92 19 161/85 99 Room Air 05/27/16 10:40 92 161/89 05/27/16 10:35 92 161/89 05/27/16 08:18 96.6 87 20 157/85 98 Room Air 05/27/16 04:00 97.9 89 20 148/87 95 Room Air 05/27/16 01:08 97.7 86 20 135/77 97 Room Air 05/27/16 01:05 97.9 86 20 135/77 97 Room Air 05/27/16 00:00 97.7 86 20 135/77 97 Room Air 05/26/16 19:33 98.2 86 19 147/81 93 Room Air Intake and Output 05/26/16 05/27/16 19:00 07:00 Intake Total 1160 ml 120 ml Output Total 2400 ml Balance -1240 ml 120 ml Intake Oral 1160 ml 120 ml Output Urine Total 100 ml Hemodialysis UF 2300 ml # Voids 1 1 Laboratory Tests Test 05/27/16 06:00 White Blood Count 6.3 K/UL (4.8-10.8) Red Blood Count 2.63 M/UL (4.20-5.40) L Hemoglobin 7.9 G/DL (12.0-16.0) L Hematocrit 25.8 % (37.0-47.0) L Mean Corpuscular Volume 98 FL (80-99) Mean Corpuscular Hemoglobin 30.0 PG (27.0-31.0) Mean Corpuscular Hemoglobin Concent 30.6 G/DL (32.0-36.0) L Red Cell Distribution Width 17.3 % (11.6-14.8) H Platelet Count 121 K/UL (150-450) L Mean Platelet Volume 6.2 FL (6.5-10.1) L Neutrophils (%) (Auto) % (45.0-75.0) Lymphocytes (%) (Auto) % (20.0-45.0) Monocytes (%) (Auto) % (1.0-10.0) Eosinophils (%) (Auto) % (0.0-3.0) Basophils (%) (Auto) % (0.0-2.0) Differential Total Cells Counted 100 Neutrophils % (Manual) 62 % (45-75) Lymphocytes % (Manual) 22 % (20-45) Monocytes % (Manual) 12 % (1-10) H Eosinophils % (Manual) 4 % (0-3) H Basophils % (Manual) 0 % (0-2) Band Neutrophils 0 % (0-8) Platelet Estimate Decreased L Platelet Morphology Normal Hypochromasia 1+ Anisocytosis 1+ Sodium Level 142 mEQ/L (135-145) Potassium Level 3.9 mEQ/L (3.4-4.9) Chloride Level 96 mEQ/L (98-107) L Carbon Dioxide Level 35 mEQ/L (20-30) H Anion Gap 11 (5-15) Blood Urea Nitrogen 30 mg/dL (7-23) H Creatinine 4.4 mg/dL (0.5-0.9) H Estimat Glomerular Filtration Rate 12.4 mL/min (>60) Glucose Level 61 mg/dL (74-106) L Calcium Level 8.2 mg/dL (8.6-10.2) L Phosphorus Level 5.1 mg/dL (2.5-4.8) H Magnesium Level 1.7 mg/dL (1.7-2.5) Total Bilirubin 0.4 mg/dL (0.0-1.2) Aspartate Amino Transf (AST/SGOT) 15 U/L (5-40) Alanine Aminotransferase (ALT/SGPT) 5 U/L (3-33) Alkaline Phosphatase 86 U/L (35-104) Total Protein 6.6 g/dL (6.6-8.7) Albumin 2.6 g/dL (3.5-5.2) L Globulin 4.0 g/dL Albumin/Globulin Ratio 0.6 (1.0-2.7) L Height (Feet): 5 Height (Inches): 1.00 Weight (Pounds): 124 Objective Left chest permcath c/d/i Right arm avg no thrill Resolving arm edema Right arm skin blister cvs rrr lungs cta abd soft nontender less disteded Feet warm intact pedal dopplers Assessment/Plan Assessment ESRD on HD s/p left chest permcath Thrombosed right arm avg with hx of bleeding due to coagulopathy and outflow stenosis HTN Liver cirrhosis- alcoholic Hepatitis B+ ab Hepatitis and HIV negative PAD Anemia Ascites requiring frequent paracentesis Plan HD via left chest permcath Right arm skin wound care Ok for discharge per vascular point For right arm av shunt declot vs new shunt placement as outpatient--once arm blistered wounds heal better d/w pt at length d/w MILLER CYR May 27, 2016 18:43
--- NOTE | 2016-05-27 20:58 | General Progress Note ---
Assessment/Plan Assessment/Plan Assessment/Plan Assessment/Plan Assessment/Plan ASSESSMENT: # Acute thrombosis of common femoral and supericial femoral vein of left lower extremity - on both heparin gtt and coumadin to be continued # Anemia is 2/2 chronic disease # Leukocytosis is mild is likely 2/2 reactice process # Left leg pain 2/2 DVT # Coagulopathy 2/2 clot # Tachycardia - consistent with DVT RECS: - Agree with heparin gtt as well as 3-6 months of coumadin - Consider imaging with 2d echo, has a hx of left ventricular thrombus - Does not require a hypercoag w/u given patient's age, she is >51 - Anemia w/u has been reviewed, does not require iron - Monitor closely and counciled regarding potential for DVT - Appreciate consult! Continue followup Carleen Tobar M.D. Subjective Constitutional: Reports: no symptoms HEENT: Reports: no symptoms Cardiovascular: Reports: no symptoms Respiratory: Reports: no symptoms Gastrointestinal/Abdominal: Reports: no symptoms Genitourinary: Reports: no symptoms Neurologic/Psychiatric: Reports: no symptoms Endocrine: Reports: no symptoms Hematologic/Lymphatic: Reports: no symptoms Allergies: Coded Allergies: No Known Allergies (Unverified , 09/20/15) Objective Last 24 Hour Vital Signs Date Time Temp Pulse Resp B/P Pulse Ox O2 Delivery O2 Flow Rate FiO2 05/27/16 20:00 97.9 85 22 157/88 96 Room Air 05/27/16 17:41 98.2 05/27/16 17:11 88 155/94 05/27/16 16:00 98.2 88 18 155/94 94 Room Air 05/27/16 14:52 91 149/94 05/27/16 11:43 97.1 92 19 161/85 99 Room Air 05/27/16 10:40 92 161/89 05/27/16 10:35 92 161/89 05/27/16 08:18 96.6 87 20 157/85 98 Room Air 05/27/16 04:00 97.9 89 20 148/87 95 Room Air 05/27/16 01:08 97.7 86 20 135/77 97 Room Air 05/27/16 01:05 97.9 86 20 135/77 97 Room Air 05/27/16 00:00 97.7 86 20 135/77 97 Room Air Intake and Output 05/26/16 05/27/16 19:00 07:00 Intake Total 1160 ml 120 ml Output Total 2400 ml Balance -1240 ml 120 ml Intake Oral 1160 ml 120 ml Output Urine Total 100 ml Hemodialysis UF 2300 ml # Voids 1 1 Laboratory Tests 05/27/16 06:00: White Blood Count 6.3, Red Blood Count 2.63L, Hemoglobin 7.9L, Hematocrit 25.8L , Mean Corpuscular Volume 98, Mean Corpuscular Hemoglobin 30.0, Mean Corpuscular Hemoglobin Concent 30.6L, Red Cell Distribution Width 17.3H, Platelet Count 121L, Mean Platelet Volume 6.2L, Neutrophils (%) (Auto) , Lymphocytes (%) (Auto) , Monocytes (%) (Auto) , Eosinophils (%) (Auto) , Basophils (%) (Auto) , Differential Total Cells Counted 100, Neutrophils % ( Manual) 62, Lymphocytes % (Manual) 22, Monocytes % (Manual) 12H, Eosinophils % ( Manual) 4H, Basophils % (Manual) 0, Band Neutrophils 0, Platelet Estimate DecreasedL, Platelet Morphology Normal, Hypochromasia 1+, Anisocytosis 1+, Sodium Level 142, Potassium Level 3.9, Chloride Level 96L, Carbon Dioxide Level 35H, Anion Gap 11, Blood Urea Nitrogen 30H, Creatinine 4.4H, Estimat Glomerular Filtration Rate 12.4, Glucose Level 61L, Calcium Level 8.2L, Phosphorus Level 5.1H, Magnesium Level 1.7, Total Bilirubin 0.4, Aspartate Amino Transf (AST/SGOT ) 15, Alanine Aminotransferase (ALT/SGPT) 5, Alkaline Phosphatase 86, Total Protein 6.6, Albumin 2.6L, Globulin 4.0, Albumin/Globulin Ratio 0.6L Height (Feet): 5 Height (Inches): 1.00 Weight (Pounds): 124 General Appearance: no apparent distress EENT: normal ENT inspection Neck: normal alignment Cardiovascular: normal rate Respiratory/Chest: normal breath sounds Abdomen: soft Pelvis: no masses Extremities: non-tender Edema: no edema noted Arm (L), no edema noted Arm (R), no edema noted Leg (L), no edema noted Leg (R), no edema noted Pedal (L), no edema noted Pedal (R), no edema noted Generalized Neurologic: oriented x 3 Skin: warm/dry Lymphatic: normal anterior cervical (L), normal anterior cervical (R), normal axillary (L), normal axillary (R), normal inguinal (L), normal inguinal (R), normal other, normal posterior cervical (L), normal posterior cervical (R), normal submandibular (L), normal submandibular (R), normal supraclavicular (L), normal supraclavicular (R) CARLEEN TOBAR May 27, 2016 20:58
--- NOTE | 2016-05-27 23:30 | Pulmonology Progress Note ---
Assessment/Plan Problems: (1) Cirrhosis of liver (2) Deep venous thrombosis of axillary vein (3) ESRD (end stage renal disease) (4) Hypothyroidism (5) Hemorrhage from arteriovenous dialysis graft (6) Ascites Assessment/Plan for paracentesis HD by nephrology f/u by vascular pain control transfuse when Hem< 7 med/surg dc planning Subjective ROS Limited/Unobtainable: No Constitutional: Reports: anorexia, fatigue Respiratory: Reports: dyspnea at rest, dyspnea on exertion, productive cough, shortness of breath, sputum Neurologic: Reports: confusion, weakness Skin: Reports: rash, ulcer Allergies: Coded Allergies: No Known Allergies (Unverified , 09/20/15) Objective Last 24 Hour Vital Signs Date Time Temp Pulse Resp B/P Pulse Ox O2 Delivery O2 Flow Rate FiO2 05/27/16 21:54 97.9 05/27/16 20:00 97.9 85 22 157/88 96 Room Air 05/27/16 17:11 88 155/94 05/27/16 16:00 98.2 88 18 155/94 94 Room Air 05/27/16 14:52 91 149/94 05/27/16 11:43 97.1 92 19 161/85 99 Room Air 05/27/16 10:40 92 161/89 05/27/16 10:35 92 161/89 05/27/16 08:18 96.6 87 20 157/85 98 Room Air 05/27/16 04:00 97.9 89 20 148/87 95 Room Air 05/27/16 01:08 97.7 86 20 135/77 97 Room Air 05/27/16 01:05 97.9 86 20 135/77 97 Room Air 05/27/16 00:00 97.7 86 20 135/77 97 Room Air Intake and Output 05/26/16 05/27/16 19:00 07:00 Intake Total 1160 ml 120 ml Output Total 2400 ml Balance -1240 ml 120 ml Intake Oral 1160 ml 120 ml Output Urine Total 100 ml Hemodialysis UF 2300 ml # Voids 1 1 General Appearance: no acute distress HEENT: normocephalic, atraumatic, PERRL Respiratory/Chest: chest wall non-tender, decreased breath sounds, accessory muscle use Breasts: no masses Cardiovascular: normal peripheral pulses, normal rate, regular rhythm, no JVD Abdomen: normal bowel sounds, soft, non tender, no organomegaly, non distended Genitourinary: normal external genitalia Extremities: no cyanosis Skin: rash, lesions 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, no motor/sensory deficits Laboratory Tests 05/27/16 06:00: White Blood Count 6.3, Red Blood Count 2.63L, Hemoglobin 7.9L, Hematocrit 25.8L , Mean Corpuscular Volume 98, Mean Corpuscular Hemoglobin 30.0, Mean Corpuscular Hemoglobin Concent 30.6L, Red Cell Distribution Width 17.3H, Platelet Count 121L, Mean Platelet Volume 6.2L, Neutrophils (%) (Auto) , Lymphocytes (%) (Auto) , Monocytes (%) (Auto) , Eosinophils (%) (Auto) , Basophils (%) (Auto) , Differential Total Cells Counted 100, Neutrophils % ( Manual) 62, Lymphocytes % (Manual) 22, Monocytes % (Manual) 12H, Eosinophils % ( Manual) 4H, Basophils % (Manual) 0, Band Neutrophils 0, Platelet Estimate DecreasedL, Platelet Morphology Normal, Hypochromasia 1+, Anisocytosis 1+, Sodium Level 142, Potassium Level 3.9, Chloride Level 96L, Carbon Dioxide Level 35H, Anion Gap 11, Blood Urea Nitrogen 30H, Creatinine 4.4H, Estimat Glomerular Filtration Rate 12.4, Glucose Level 61L, Calcium Level 8.2L, Phosphorus Level 5.1H, Magnesium Level 1.7, Total Bilirubin 0.4, Aspartate Amino Transf (AST/SGOT ) 15, Alanine Aminotransferase (ALT/SGPT) 5, Alkaline Phosphatase 86, Total Protein 6.6, Albumin 2.6L, Globulin 4.0, Albumin/Globulin Ratio 0.6L Current Medications Medications (Trade) Dose Ordered Sig/Ranjan Route PRN Reason Start Time Stop Time Status Last Admin Dose Admin Acetaminophen (Tylenol) 500 mg Q6H PRN ORAL Mild Pain/Temp > 100.5 05/24/16 15:00 06/23/16 14:59 Amlodipine Besylate (Norvasc) 10 mg DAILY ORAL 05/25/16 09:00 06/24/16 08:59 05/27/16 10:40 Clonidine HCl (Catapres) 0.1 mg Q4H PRN ORAL SBP>160 05/24/16 15:00 06/23/16 14:59 4/6/17 01:14 Dextrose (Dextrose 50%) STAT PRN IV Hypoglycemia 05/25/16 15:00 06/24/16 14:59 Diphenhydramine HCl (Benadryl) 25 mg Q4H PRN IVP Itching 05/24/16 15:30 06/23/16 15:29 05/27/16 22:27 Epoetin Vikas (Procrit (for ESRD on dialysis)) 10,000 units SUN-SUN-SUN SUBQ 05/26/16 21:00 06/25/16 20:59 05/26/16 20:44 Hydromorphone HCl (Dilaudid) 0.5 mg Q4H PRN IVP Severe Pain (Pain Scale 7-10) 05/26/16 10:30 06/02/16 10:29 05/27/16 21:24 Metoclopramide HCl (Reglan) 5 mg TID ORAL 05/24/16 18:00 06/23/16 17:59 05/27/16 17:11 Neomycin/ Polymyxin/ Bacitracin (Neosporin) 1 applic DAILY ONCE TOPIC 05/28/16 09:00 05/28/16 09:01 Ondansetron HCl (Zofran) 4 mg Q6H PRN IVP Nausea & Vomiting 05/24/16 15:00 06/23/16 14:59 Pantoprazole (Protonix) 40 mg DAILY ORAL 05/25/16 09:00 06/24/16 08:59 05/27/16 10:38 Polyethylene Glycol (Miralax) 17 gm DAILYPRN PRN ORAL Constipation 05/24/16 15:00 06/23/16 14:59 05/27/16 21:24 Propranolol HCl (Inderal) 25 mg TID ORAL 05/25/16 09:00 06/24/16 08:59 05/27/16 17:11 Rifaximin (Xifaxan) 550 mg EVERY 12 HOURS ORAL 05/24/16 21:00 05/31/16 20:59 05/27/16 21:04 Sevelamer Carbonate (Renvela) 1,600 mg THREE TIMES A DAY ORAL 05/24/16 18:00 06/23/16 17:59 05/27/16 17:11 Tramadol HCl (Ultram) 50 mg Q6H PRN ORAL Moderate Pain (Pain Scale 4-6) 05/24/16 15:00 05/31/16 14:59 Zolpidem Tartrate (Ambien) 5 mg HSPRN PRN ORAL Insomnia 05/24/16 21:00 06/23/16 20:59 05/26/16 00:26 ANN MARIE OSULLIVAN May 27, 2016 23:30
[2016-05-28] VITALS: BP 150/82
[2016-05-28] MEDS: Hydromorphone 0.5mg/0.5ml inj IVP PRN ×4 (01:33→22:31)
[2016-05-28] MEDS: DiphenhydrAMINE 50mg/ml Inj IVP PRN ×4 (02:30→22:31)
[2016-05-28 04:00] VITALS: BP 143/82
[2016-05-28 07:10] LABS: ALBUMIN/GLOBULIN RATIO 0.5 (1.0-2.7); CALCIUM 8.6 mg/dL (8.6-10.2); CREATININE 5.5 mg/dL (0.5-0.9); GLOMERULAR FILTRATION RATE 9.6 mL/min (>60); PHOSPHORUS 5.5 mg/dL (2.5-4.8); POTASSIUM 4.7 mEQ/L (3.4-4.9); TOTAL PROTEIN 7.2 g/dL (6.6-8.7); URIC ACID 4.7 mg/dL (3.0-7.5)
[2016-05-28 07:29] LABS: BASOPHILS % (AUTO) 0.7 % (0.0-2.0); EOSINOPHILS % (AUTO) 6.5 % (0.0-3.0); LYMPHOCYTES % (AUTO) 28.9 % (20.0-45.0); MEAN CORPUSCULAR HEMOGLOBIN 31.8 PG (27.0-31.0); MEAN CORPUSCULAR HGB CONC 32.6 G/DL (32.0-36.0); MEAN CORPUSCULAR VOLUME 97 FL (80-99); MONOCYTES % (AUTO) 9.8 % (1.0-10.0); NEUTROPHILS % (AUTO) 54.2 % (45.0-75.0); PLATELET COUNT 132 K/UL (150-450); RED BLOOD COUNT 2.54 M/UL (4.20-5.40); RED CELL DISTRIBUTION WIDTH 16.9 % (11.6-14.8); WHITE BLOOD COUNT 6.8 K/UL (4.8-10.8)
[2016-05-28 07:47] VITALS: BP 133/68
[2016-05-28] MEDS ORDERED: Neosporin Oint Ud Pkt TOPIC ONE ×2 (09:00)
[2016-05-28] MEDS: Propranolol 10mg tab ORAL SCH ×3 (09:00→18:10)
[2016-05-28] MEDS: Rifaximin 550mg tab ORAL SCH ×2 (09:01→22:30)
[2016-05-28 11:06] VITALS: BP 148/92
--- NOTE | 2016-05-28 11:40 | General Progress Note ---
Assessment/Plan Status: stable Assessment/Plan status: ESRD- hemmorrhage from right arm graft Anemia Ascitis- DM HTN At Fib Plan: last dialysis 05/26 next 05/29 Placement issues- recheck Hgb in am and transfuse if needed Vascular surgical eval noted Has permacath optimize cardiac and pulmonary status- BP meds adjustment- 2 D Echo previous admission: Left ventricular ejection fraction estimated to be 70 %. Monitor lytes and renal parameters- Per consultants Transfused Paracynthesis, Ascitis aspiration as needed Placement problems ? Subjective ROS Limited/Unobtainable: No Constitutional: Reports: malaise Allergies: Coded Allergies: No Known Allergies (Unverified , 09/20/15) Objective Last 24 Hour Vital Signs Date Time Temp Pulse Resp B/P Pulse Ox O2 Delivery O2 Flow Rate FiO2 05/28/16 11:06 97.9 80 18 148/92 97 Room Air 05/28/16 09:01 84 158/92 05/28/16 09:00 84 158/92 05/28/16 07:47 97.9 83 18 133/68 93 Room Air 05/28/16 04:00 98.0 84 20 143/82 98 Room Air 05/28/16 02:38 164/94 05/28/16 00:00 98.1 87 20 150/82 96 Room Air 05/27/16 21:54 97.9 05/27/16 20:00 97.9 85 22 157/88 96 Room Air 05/27/16 17:11 88 155/94 05/27/16 16:00 98.2 88 18 155/94 94 Room Air 05/27/16 14:52 91 149/94 05/27/16 11:43 97.1 92 19 161/85 99 Room Air Intake and Output 05/27/16 05/28/16 19:00 07:00 Intake Total 600 ml 360 ml Balance 600 ml 360 ml Intake Oral 600 ml 360 ml # Voids 1 2 Laboratory Tests 05/28/16 05:30: White Blood Count 6.8, Red Blood Count 2.54L, Hemoglobin 8.1L, Hematocrit 24.8L , Mean Corpuscular Volume 97, Mean Corpuscular Hemoglobin 31.8H, Mean Corpuscular Hemoglobin Concent 32.6, Red Cell Distribution Width 16.9H, Platelet Count 132L, Mean Platelet Volume 6.0L, Neutrophils (%) (Auto) 54.2, Lymphocytes (%) (Auto) 28.9, Monocytes (%) (Auto) 9.8, Eosinophils (%) (Auto) 6.5H, Basophils (%) (Auto) 0.7, Sodium Level 142, Potassium Level 4.7, Chloride Level 94L, Carbon Dioxide Level 34H, Anion Gap 14, Blood Urea Nitrogen 45H, Creatinine 5.5H, Estimat Glomerular Filtration Rate 9.6, Glucose Level 61L, Uric Acid 4.7, Calcium Level 8.6, Phosphorus Level 5.5H, Total Bilirubin 0.4, Aspartate Amino Transf (AST/SGOT) 18, Alanine Aminotransferase (ALT/SGPT) 5, Alkaline Phosphatase 90, Pro-B-Type Natriuretic Peptide 49309G, Total Protein 7.2, Albumin 2.6L, Globulin 4.6, Albumin/Globulin Ratio 0.5L Height (Feet): 5 Height (Inches): 1.00 Weight (Pounds): 125 General Appearance: no apparent distress Respiratory/Chest: decreased breath sounds Abdomen: distended Objective other PE not changed PEPE MONTERROSO May 28, 2016 11:40
--- NOTE | 2016-05-28 15:23 | Internal Med Progress Note ---
Subjective Date of Service: May 28, 2016 Physician Name AlvarezJavier Attending Physician Jackson Albright MD Current Medications Medications (Trade) Dose Ordered Sig/Ranjan Route PRN Reason Start Time Stop Time Status Last Admin Dose Admin Acetaminophen (Tylenol) 500 mg Q6H PRN ORAL Mild Pain/Temp > 100.5 05/24/16 15:00 06/23/16 14:59 Albuterol Sulfate (Proventil) 2.5 mg Q6HRT PRN HHN Shortness of Breath 05/28/16 19:00 06/02/16 18:59 Amlodipine Besylate (Norvasc) 10 mg DAILY ORAL 05/25/16 09:00 06/24/16 08:59 05/28/16 09:01 Clonidine HCl (Catapres) 0.1 mg Q4H PRN ORAL SBP>160 05/24/16 15:00 06/23/16 14:59 05/28/16 02:38 Dextrose (Dextrose 50%) STAT PRN IV Hypoglycemia 05/25/16 15:00 06/24/16 14:59 Diphenhydramine HCl (Benadryl) 25 mg Q4H PRN IVP Itching 05/24/16 15:30 06/23/16 15:29 05/28/16 09:02 Epoetin Vikas (Procrit (for ESRD on dialysis)) 10,000 units SUN-SUN-SUN SUBQ 05/26/16 21:00 06/25/16 20:59 05/26/16 20:44 Hydromorphone HCl (Dilaudid) 0.5 mg Q4H PRN IVP Severe Pain (Pain Scale 7-10) 05/26/16 10:30 06/02/16 10:29 05/28/16 05:29 Metoclopramide HCl (Reglan) 5 mg TID ORAL 05/24/16 18:00 06/23/16 17:59 05/28/16 13:24 Ondansetron HCl (Zofran) 4 mg Q6H PRN IVP Nausea & Vomiting 05/24/16 15:00 06/23/16 14:59 Pantoprazole (Protonix) 40 mg DAILY ORAL 05/25/16 09:00 06/24/16 08:59 05/28/16 09:01 Polyethylene Glycol (Miralax) 17 gm DAILYPRN PRN ORAL Constipation 05/24/16 15:00 06/23/16 14:59 05/27/16 21:24 Propranolol HCl (Inderal) 25 mg TID ORAL 05/25/16 09:00 06/24/16 08:59 05/28/16 13:24 Rifaximin (Xifaxan) 550 mg EVERY 12 HOURS ORAL 05/24/16 21:00 05/31/16 20:59 05/28/16 09:01 Sevelamer Carbonate (Renvela) 1,600 mg THREE TIMES A DAY ORAL 05/24/16 18:00 06/23/16 17:59 05/28/16 13:25 Tramadol HCl (Ultram) 50 mg Q6H PRN ORAL Moderate Pain (Pain Scale 4-6) 05/24/16 15:00 05/31/16 14:59 Zolpidem Tartrate (Ambien) 5 mg HSPRN PRN ORAL Insomnia 05/24/16 21:00 06/23/16 20:59 05/26/16 00:26 Allergies: Coded Allergies: No Known Allergies (Unverified , 09/20/15) ROS Limited/Unobtainable: No Constitutional: Reports: no symptoms HEENT: Reports: no symptoms Cardiovascular: Reports: no symptoms Respiratory: Reports: no symptoms Gastrointestinal/Abdominal: Reports: no symptoms Genitourinary: Reports: no symptoms Neurologic/Psychiatric: Reports: no symptoms Subjective 61 YO F admitted with dialysis shunt hemorrhage. S/P transfusion1 unit PRBC today. Discharge held-patient refused to go to [facility]. Cover for Int Med-Dr Albright. Objective Last Vital Signs Date Time Temp Pulse Resp B/P Pulse Ox O2 Delivery O2 Flow Rate FiO2 05/28/16 13:24 87 143/79 05/28/16 11:06 97.9 18 97 Room Air 05/25/16 11:13 3.0 Laboratory Tests Test 05/28/16 05:30 White Blood Count 6.8 K/UL (4.8-10.8) Red Blood Count 2.54 M/UL (4.20-5.40) L Hemoglobin 8.1 G/DL (12.0-16.0) L Hematocrit 24.8 % (37.0-47.0) L Mean Corpuscular Volume 97 FL (80-99) Mean Corpuscular Hemoglobin 31.8 PG (27.0-31.0) H Mean Corpuscular Hemoglobin Concent 32.6 G/DL (32.0-36.0) Red Cell Distribution Width 16.9 % (11.6-14.8) H Platelet Count 132 K/UL (150-450) L Mean Platelet Volume 6.0 FL (6.5-10.1) L Neutrophils (%) (Auto) 54.2 % (45.0-75.0) Lymphocytes (%) (Auto) 28.9 % (20.0-45.0) Monocytes (%) (Auto) 9.8 % (1.0-10.0) Eosinophils (%) (Auto) 6.5 % (0.0-3.0) H Basophils (%) (Auto) 0.7 % (0.0-2.0) Sodium Level 142 mEQ/L (135-145) Potassium Level 4.7 mEQ/L (3.4-4.9) Chloride Level 94 mEQ/L (98-107) L Carbon Dioxide Level 34 mEQ/L (20-30) H Anion Gap 14 (5-15) Blood Urea Nitrogen 45 mg/dL (7-23) H Creatinine 5.5 mg/dL (0.5-0.9) H Estimat Glomerular Filtration Rate 9.6 mL/min (>60) Glucose Level 61 mg/dL (74-106) L Uric Acid 4.7 mg/dL (3.0-7.5) Calcium Level 8.6 mg/dL (8.6-10.2) Phosphorus Level 5.5 mg/dL (2.5-4.8) H Total Bilirubin 0.4 mg/dL (0.0-1.2) Aspartate Amino Transf (AST/SGOT) 18 U/L (5-40) Alanine Aminotransferase (ALT/SGPT) 5 U/L (3-33) Alkaline Phosphatase 90 U/L (35-104) Pro-B-Type Natriuretic Peptide 10277 pg/mL (0-125) H Total Protein 7.2 g/dL (6.6-8.7) Albumin 2.6 g/dL (3.5-5.2) L Globulin 4.6 g/dL Albumin/Globulin Ratio 0.5 (1.0-2.7) L Intake and Output 05/27/16 05/28/16 19:00 07:00 Intake Total 600 ml 360 ml Balance 600 ml 360 ml Intake Oral 600 ml 360 ml # Voids 1 2 Objective General Appearance: WD/WN, alert, mild distress EENT: PERRL/EOMI, normal ENT inspection Neck: non-tender, normal alignment, supple Cardiovascular: normal peripheral pulses, normal rate, regular rhythm, no gallop/murmur, no JVD Respiratory/Chest: chest wall non-tender, lungs clear, normal breath sounds, no respiratory distress, no accessory muscle use Abdomen: normal bowel sounds, non tender, soft, no organomegaly, no mass Extremities: normal range of motion, other - Dressing A/V graft 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 See vascular surgery consult. S/P Tunneled Permacath 05/22/16. (2) Anemia Assessment & Plan: S/P transfurion 1 unit PRBC today (3 units total). See Hematology note. (3) ESRD (end stage renal disease) Assessment & Plan: See nephrology note. Hemodialysis Sunday05/29/16 per nephrology (4) HTN (hypertension) Assessment & Plan: Cont propranolol and norvasc. (5) Cirrhosis of liver (6) H/O ETOH abuse (7) Ascites Assessment & Plan: S/P paracentesis . Await results. (8) CHF (congestive heart failure) (9) Deep venous thrombosis of axillary vein Assessment & Plan: Hold anticoagulation due to hemorrrhage. See Hematology ( Bhavin) and vasc surgery (Lacho) consults. Status: not improved Assessment/Plan Discharge planning: Discharge to [facility] held. Patient wishes to return home. Daughter wants patient to go to [facility]. See soc work note. JAVIER ALVAREZ May 28, 2016 15:23
--- NOTE | 2016-05-28 15:58 | General Progress Note ---
Assessment/Plan Assessment/Plan ASSESSMENT: 1. Right upper extremitiy dvt - at this time, coumadin is on hold given recent hemorrhage, hgb must first be stable before restarting anticoag 2. Anemia on chronic kidney disease. ferritin 706, esr elevated, on epo, requiring occasional blood transfusions 3. 12 mm nodule in the liver 4. Elevated tumor markers. The patient with a history of elevated tumor markers , CA-199 and CA-125 were elevated. An imaging CT scan shows potential sclerosis versus metastatic neoplasm, metabolic abnormality, in addition 12 mm enhancing nodule noted nonspecific and liver, which will need to be followed up. Skeletal survey nonspecific and to obtain NM scan shows no evidence of malignancy. Ascitic results show no abnormalities 5. History of alcohol abuse. 6. Abdominal pain. 7. Atelectasis. 8. Pulmonary edema. 9. Ascites. RECOMMENDATION: 1. Holding coumadin given anemia 2. Continue epogen sq 3. Imaging of the liver nodule every six months per GI service to monitor nodule growth every six months, which is 12 mm, which will need to be followed up 4. Peripheral smear shows no abnormalities 5. Hemodialysis 3x a week 6. Appreciate pulm and nephro recs 7. Hgb goal >8 given esrd 8. Follow from heme perspective Subjective Constitutional: Reports: no symptoms HEENT: Reports: no symptoms Cardiovascular: Reports: no symptoms Respiratory: Reports: no symptoms Gastrointestinal/Abdominal: Reports: poor appetite Genitourinary: Reports: no symptoms Neurologic/Psychiatric: Reports: no symptoms Endocrine: Reports: no symptoms Hematologic/Lymphatic: Reports: anemia Allergies: Coded Allergies: No Known Allergies (Unverified , 09/20/15) Subjective stable, no events, no fevers or chills, no bleeding noted Objective Last 24 Hour Vital Signs Date Time Temp Pulse Resp B/P Pulse Ox O2 Delivery O2 Flow Rate FiO2 05/28/16 13:24 87 143/79 05/28/16 11:06 97.9 80 18 148/92 97 Room Air 05/28/16 09:01 84 158/92 05/28/16 09:00 84 158/92 05/28/16 07:47 97.9 83 18 133/68 93 Room Air 05/28/16 04:00 98.0 84 20 143/82 98 Room Air 05/28/16 02:38 164/94 05/28/16 00:00 98.1 87 20 150/82 96 Room Air 05/27/16 21:54 97.9 05/27/16 20:00 97.9 85 22 157/88 96 Room Air 05/27/16 17:11 88 155/94 05/27/16 16:00 98.2 88 18 155/94 94 Room Air Intake and Output 05/27/16 05/28/16 19:00 07:00 Intake Total 600 ml 360 ml Balance 600 ml 360 ml Intake Oral 600 ml 360 ml # Voids 1 2 Laboratory Tests 05/28/16 05:30: White Blood Count 6.8, Red Blood Count 2.54L, Hemoglobin 8.1L, Hematocrit 24.8L , Mean Corpuscular Volume 97, Mean Corpuscular Hemoglobin 31.8H, Mean Corpuscular Hemoglobin Concent 32.6, Red Cell Distribution Width 16.9H, Platelet Count 132L, Mean Platelet Volume 6.0L, Neutrophils (%) (Auto) 54.2, Lymphocytes (%) (Auto) 28.9, Monocytes (%) (Auto) 9.8, Eosinophils (%) (Auto) 6.5H, Basophils (%) (Auto) 0.7, Sodium Level 142, Potassium Level 4.7, Chloride Level 94L, Carbon Dioxide Level 34H, Anion Gap 14, Blood Urea Nitrogen 45H, Creatinine 5.5H, Estimat Glomerular Filtration Rate 9.6, Glucose Level 61L, Uric Acid 4.7, Calcium Level 8.6, Phosphorus Level 5.5H, Total Bilirubin 0.4, Aspartate Amino Transf (AST/SGOT) 18, Alanine Aminotransferase (ALT/SGPT) 5, Alkaline Phosphatase 90, Pro-B-Type Natriuretic Peptide 46451T, Total Protein 7.2, Albumin 2.6L, Globulin 4.6, Albumin/Globulin Ratio 0.5L Height (Feet): 5 Height (Inches): 1.00 Weight (Pounds): 125 General Appearance: no apparent distress EENT: TMs normal Neck: supple Cardiovascular: normal rate Respiratory/Chest: normal breath sounds Abdomen: non tender Extremities: non-tender Edema: 1+ Leg (L), 1+ Leg (R) Edema: mild edema Neurologic: alert Skin: warm/dry Fabrizio Tobar May 28, 2016 15:58
[2016-05-28 16:00] VITALS: BP 147/79
[2016-05-28] MEDS ORDERED: Albuterol ud Inhalation HHN PRN (19:00)
--- NOTE | 2016-05-28 19:16 | Pulmonology Progress Note ---
Assessment/Plan Problems: (1) Cirrhosis of liver (2) Deep venous thrombosis of axillary vein (3) ESRD (end stage renal disease) (4) Hypothyroidism (5) Hemorrhage from arteriovenous dialysis graft (6) Ascites Assessment/Plan for paracentesis HD by nephrology f/u by vascular pain control transfuse when Hem< 7 med/surg dc planning Subjective ROS Limited/Unobtainable: No Constitutional: Reports: anorexia, fatigue Gastrointestinal/Abdominal: Reports: bloating, nausea, vomiting Allergies: Coded Allergies: No Known Allergies (Unverified , 09/20/15) Objective Last 24 Hour Vital Signs Date Time Temp Pulse Resp B/P Pulse Ox O2 Delivery O2 Flow Rate FiO2 05/28/16 18:10 82 168/99 05/28/16 16:00 98.2 84 18 147/79 96 Room Air 05/28/16 13:24 87 143/79 05/28/16 11:06 97.9 80 18 148/92 97 Room Air 05/28/16 09:01 84 158/92 05/28/16 09:00 84 158/92 05/28/16 07:47 97.9 83 18 133/68 93 Room Air 05/28/16 04:00 98.0 84 20 143/82 98 Room Air 05/28/16 02:38 164/94 05/28/16 00:00 98.1 87 20 150/82 96 Room Air 05/27/16 21:54 97.9 05/27/16 20:00 97.9 85 22 157/88 96 Room Air Intake and Output 05/27/16 05/28/16 19:00 07:00 Intake Total 600 ml 360 ml Balance 600 ml 360 ml Intake Oral 600 ml 360 ml # Voids 1 2 General Appearance: no acute distress HEENT: normocephalic, atraumatic, PERRL Respiratory/Chest: chest wall non-tender, decreased breath sounds, accessory muscle use Breasts: no masses Cardiovascular: normal peripheral pulses, normal rate, regular rhythm, no JVD Abdomen: hypoactive bowel sounds, distended, guarding, tender, rebound tenderness, hernia, hepatomegaly Genitourinary: normal external genitalia Extremities: no cyanosis Skin: rash, lesions 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, responsive, disoriented Laboratory Tests 05/28/16 05:30: White Blood Count 6.8, Red Blood Count 2.54L, Hemoglobin 8.1L, Hematocrit 24.8L , Mean Corpuscular Volume 97, Mean Corpuscular Hemoglobin 31.8H, Mean Corpuscular Hemoglobin Concent 32.6, Red Cell Distribution Width 16.9H, Platelet Count 132L, Mean Platelet Volume 6.0L, Neutrophils (%) (Auto) 54.2, Lymphocytes (%) (Auto) 28.9, Monocytes (%) (Auto) 9.8, Eosinophils (%) (Auto) 6.5H, Basophils (%) (Auto) 0.7, Sodium Level 142, Potassium Level 4.7, Chloride Level 94L, Carbon Dioxide Level 34H, Anion Gap 14, Blood Urea Nitrogen 45H, Creatinine 5.5H, Estimat Glomerular Filtration Rate 9.6, Glucose Level 61L, Uric Acid 4.7, Calcium Level 8.6, Phosphorus Level 5.5H, Total Bilirubin 0.4, Aspartate Amino Transf (AST/SGOT) 18, Alanine Aminotransferase (ALT/SGPT) 5, Alkaline Phosphatase 90, Pro-B-Type Natriuretic Peptide 39927Q, Total Protein 7.2, Albumin 2.6L, Globulin 4.6, Albumin/Globulin Ratio 0.5L Current Medications Medications (Trade) Dose Ordered Sig/Ranjan Route PRN Reason Start Time Stop Time Status Last Admin Dose Admin Acetaminophen (Tylenol) 500 mg Q6H PRN ORAL Mild Pain/Temp > 100.5 05/24/16 15:00 06/23/16 14:59 Albuterol Sulfate (Proventil) 2.5 mg Q6HRT PRN HHN Shortness of Breath 05/28/16 19:00 06/02/16 18:59 Amlodipine Besylate (Norvasc) 10 mg DAILY ORAL 05/25/16 09:00 06/24/16 08:59 05/28/16 09:01 Clonidine HCl (Catapres) 0.1 mg Q4H PRN ORAL SBP>160 05/24/16 15:00 06/23/16 14:59 05/28/16 02:38 Dextrose (Dextrose 50%) STAT PRN IV Hypoglycemia 05/25/16 15:00 06/24/16 14:59 Diphenhydramine HCl (Benadryl) 25 mg Q4H PRN IVP Itching 05/24/16 15:30 06/23/16 15:29 05/28/16 18:17 Epoetin Vikas (Procrit (for ESRD on dialysis)) 10,000 units SUN-SUN-SUN SUBQ 05/26/16 21:00 06/25/16 20:59 05/26/16 20:44 Hydromorphone HCl (Dilaudid) 0.5 mg Q4H PRN IVP Severe Pain (Pain Scale 7-10) 05/26/16 10:30 06/02/16 10:29 05/28/16 18:23 Metoclopramide HCl (Reglan) 5 mg TID ORAL 05/24/16 18:00 06/23/16 17:59 05/28/16 18:10 Ondansetron HCl (Zofran) 4 mg Q6H PRN IVP Nausea & Vomiting 05/24/16 15:00 06/23/16 14:59 Pantoprazole (Protonix) 40 mg DAILY ORAL 05/25/16 09:00 06/24/16 08:59 05/28/16 09:01 Polyethylene Glycol (Miralax) 17 gm DAILYPRN PRN ORAL Constipation 05/24/16 15:00 06/23/16 14:59 05/27/16 21:24 Propranolol HCl (Inderal) 25 mg TID ORAL 05/25/16 09:00 06/24/16 08:59 05/28/16 18:10 Rifaximin (Xifaxan) 550 mg EVERY 12 HOURS ORAL 05/24/16 21:00 05/31/16 20:59 05/28/16 09:01 Sevelamer Carbonate (Renvela) 1,600 mg THREE TIMES A DAY ORAL 05/24/16 18:00 06/23/16 17:59 05/28/16 18:10 Tramadol HCl (Ultram) 50 mg Q6H PRN ORAL Moderate Pain (Pain Scale 4-6) 05/24/16 15:00 05/31/16 14:59 Zolpidem Tartrate (Ambien) 5 mg HSPRN PRN ORAL Insomnia 05/24/16 21:00 06/23/16 20:59 05/26/16 00:26 ANN MARIE OSULLIVAN May 28, 2016 19:16
[2016-05-28 20:00] VITALS: BP 157/89
[2016-05-28] MEDS: Neosporin Oint 15gm TOPIC SCH (22:32)
[2016-05-29] VITALS (8 sets, daily range): BP systolic 148–173; BP diastolic 71–106
[2016-05-29] MEDS: DiphenhydrAMINE 50mg/ml Inj IVP PRN ×2 (02:34→06:36)
[2016-05-29] MEDS: Hydromorphone 0.5mg/0.5ml inj IVP PRN ×2 (02:35→06:39)
[2016-05-29 06:04] LABS: BASOPHILS % (AUTO) 1.1 % (0.0-2.0); EOSINOPHILS % (AUTO) 6.2 % (0.0-3.0); LYMPHOCYTES % (AUTO) 32.7 % (20.0-45.0); MEAN CORPUSCULAR HEMOGLOBIN 30.6 PG (27.0-31.0); MEAN CORPUSCULAR HGB CONC 31.9 G/DL (32.0-36.0); MEAN CORPUSCULAR VOLUME 96 FL (80-99); MEAN PLATELET VOLUME 6.1 FL (6.5-10.1); MONOCYTES % (AUTO) 7.4 % (1.0-10.0); NEUTROPHILS % (AUTO) 52.5 % (45.0-75.0); PLATELET COUNT 161 K/UL (150-450); RED BLOOD COUNT 3.07 M/UL (4.20-5.40); RED CELL DISTRIBUTION WIDTH 17.3 % (11.6-14.8); WHITE BLOOD COUNT 8.9 K/UL (4.8-10.8)
[2016-05-29 06:15] LABS: CALCIUM 8.4 mg/dL (8.6-10.2); CREATININE 6.3 mg/dL (0.5-0.9); GLOMERULAR FILTRATION RATE 8.2 mL/min (>60); POTASSIUM 5.5 mEQ/L (3.4-4.9)
[2016-05-29] MEDS: Propranolol 10mg tab ORAL SCH ×3 (09:44→18:28)
[2016-05-29] MEDS: Rifaximin 550mg tab ORAL SCH (09:45)
--- NOTE | 2016-05-29 11:22 | Internal Med Progress Note ---
Subjective Date of Service: May 29, 2016 Physician Name Javier Alvarez Attending Physician Jackson Albright MD Current Medications Medications (Trade) Dose Ordered Sig/Ranjan Route PRN Reason Start Time Stop Time Status Last Admin Dose Admin Acetaminophen (Tylenol) 500 mg Q6H PRN ORAL Mild Pain/Temp > 100.5 05/24/16 15:00 06/23/16 14:59 Albuterol Sulfate (Proventil) 2.5 mg Q6HRT PRN HHN Shortness of Breath 05/28/16 19:00 06/02/16 18:59 Amlodipine Besylate (Norvasc) 10 mg DAILY ORAL 05/25/16 09:00 06/24/16 08:59 05/29/16 09:45 Clonidine HCl (Catapres) 0.1 mg Q4H PRN ORAL SBP>160 05/24/16 15:00 06/23/16 14:59 05/29/16 00:37 Dextrose (Dextrose 50%) STAT PRN IV Hypoglycemia 05/25/16 15:00 06/24/16 14:59 Diphenhydramine HCl (Benadryl) 25 mg Q4H PRN IVP Itching 05/24/16 15:30 06/23/16 15:29 05/29/16 06:36 Epoetin Vikas (Procrit (for ESRD on dialysis)) 10,000 units SUN-SUN-SUN SUBQ 05/26/16 21:00 06/25/16 20:59 05/26/16 20:44 Hydromorphone HCl (Dilaudid) 0.5 mg Q4H PRN IVP Severe Pain (Pain Scale 7-10) 05/26/16 10:30 06/02/16 10:29 05/29/16 06:39 Metoclopramide HCl (Reglan) 5 mg TID ORAL 05/24/16 18:00 06/23/16 17:59 05/29/16 09:45 Neomycin/ Polymyxin/ Bacitracin (Neosporin Oint 15gm) 1 applic DAILY TOPIC 05/28/16 21:15 06/27/16 21:14 05/28/16 22:32 Ondansetron HCl (Zofran) 4 mg Q6H PRN IVP Nausea & Vomiting 05/24/16 15:00 06/23/16 14:59 Pantoprazole (Protonix) 40 mg DAILY ORAL 05/25/16 09:00 06/24/16 08:59 05/29/16 09:45 Polyethylene Glycol (Miralax) 17 gm DAILYPRN PRN ORAL Constipation 05/24/16 15:00 06/23/16 14:59 05/27/16 21:24 Propranolol HCl (Inderal) 25 mg TID ORAL 05/25/16 09:00 06/24/16 08:59 05/29/16 09:44 Rifaximin (Xifaxan) 550 mg EVERY 12 HOURS ORAL 05/24/16 21:00 05/31/16 20:59 05/29/16 09:45 Sevelamer Carbonate (Renvela) 1,600 mg THREE TIMES A DAY ORAL 05/24/16 18:00 06/23/16 17:59 05/28/16 18:10 Tramadol HCl (Ultram) 50 mg Q6H PRN ORAL Moderate Pain (Pain Scale 4-6) 05/24/16 15:00 05/31/16 14:59 Zolpidem Tartrate (Ambien) 5 mg HSPRN PRN ORAL Insomnia 05/24/16 21:00 06/23/16 20:59 05/26/16 00:26 Allergies: Coded Allergies: No Known Allergies (Unverified , 09/20/15) ROS Limited/Unobtainable: No Constitutional: Reports: no symptoms HEENT: Reports: no symptoms Cardiovascular: Reports: no symptoms Respiratory: Reports: no symptoms Gastrointestinal/Abdominal: Reports: no symptoms Genitourinary: Reports: no symptoms Neurologic/Psychiatric: Reports: no symptoms Subjective 61 YO F admitted with dialysis shunt hemorrhage. S/P transfusion 4 unit PRBC total. Await Discharge to [facility] today. Cover for Int [facility]-Dr Albright. Objective Last Vital Signs Date Time Temp Pulse Resp B/P Pulse Ox O2 Delivery O2 Flow Rate FiO2 05/29/16 09:52 85 161/86 05/29/16 08:08 Room Air 3.0 05/29/16 07:44 97.0 18 98 Laboratory Tests Test 05/29/16 05:30 White Blood Count 8.9 K/UL (4.8-10.8) Red Blood Count 3.07 M/UL (4.20-5.40) L Hemoglobin 9.4 G/DL (12.0-16.0) L Hematocrit 29.5 % (37.0-47.0) L Mean Corpuscular Volume 96 FL (80-99) Mean Corpuscular Hemoglobin 30.6 PG (27.0-31.0) Mean Corpuscular Hemoglobin Concent 31.9 G/DL (32.0-36.0) L Red Cell Distribution Width 17.3 % (11.6-14.8) H Platelet Count 161 K/UL (150-450) Mean Platelet Volume 6.1 FL (6.5-10.1) L Neutrophils (%) (Auto) 52.5 % (45.0-75.0) Lymphocytes (%) (Auto) 32.7 % (20.0-45.0) Monocytes (%) (Auto) 7.4 % (1.0-10.0) Eosinophils (%) (Auto) 6.2 % (0.0-3.0) H Basophils (%) (Auto) 1.1 % (0.0-2.0) Sodium Level 138 mEQ/L (135-145) Potassium Level 5.5 mEQ/L (3.4-4.9) H Chloride Level 91 mEQ/L (98-107) L Carbon Dioxide Level 31 mEQ/L (20-30) H Anion Gap 16 (5-15) H Blood Urea Nitrogen 59 mg/dL (7-23) H Creatinine 6.3 mg/dL (0.5-0.9) H Estimat Glomerular Filtration Rate 8.2 mL/min (>60) Glucose Level 68 mg/dL (74-106) L Calcium Level 8.4 mg/dL (8.6-10.2) L Intake and Output 05/28/16 05/29/16 19:00 07:00 Intake Total 1200 ml Balance 1200 ml Intake Oral 1200 ml # Bowel Movements 1 Objective General Appearance: WD/WN, alert, mild distress EENT: PERRL/EOMI, normal ENT inspection Neck: non-tender, normal alignment, supple Cardiovascular: normal peripheral pulses, normal rate, regular rhythm, no gallop/murmur, no JVD Respiratory/Chest: chest wall non-tender, lungs clear, normal breath sounds, no respiratory distress, no accessory muscle use Abdomen: normal bowel sounds, non tender, soft, no organomegaly, no mass Extremities: normal range of motion, other - Dressing A/V graft 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 See vascular surgery consult. S/P Tunneled Permacath 05/22/16. (2) Anemia Assessment & Plan: S/P transfurion 1 unit PRBC today (3 units total). See Hematology note. (3) ESRD (end stage renal disease) Assessment & Plan: See nephrology note. Hemodialysis today 05/29/16 per nephrology (4) HTN (hypertension) Assessment & Plan: Cont propranolol and norvasc. (5) Cirrhosis of liver (6) H/O ETOH abuse (7) Ascites Assessment & Plan: S/P paracentesis . Await results. (8) CHF (congestive heart failure) (9) Deep venous thrombosis of axillary vein Assessment & Plan: Hold anticoagulation due to hemorrrhage. See Hematology ( Bhavin) and vasc surgery (Lacho) consults. Status: stable Assessment/Plan Discharge planning: Discharge to [facility] today. JAVIER ALVAREZ May 29, 2016 11:22
[2016-05-29] MEDS ORDERED: XIFAXAN550 MG ORAL (11:25)
[2016-05-29] MEDS ORDERED: PROCRIT20000 UNI2 SUBQ (11:25)
[2016-05-29] MEDS: Neosporin Oint 15gm TOPIC SCH (11:46)
--- NOTE | 2016-05-29 12:38 | Nephrology Progress Note ---
Assessment/Plan Problem List: (1) ESRD (end stage renal disease) (2) Hemorrhage from arteriovenous dialysis graft (3) Hypertension (4) Hypothyroidism (5) Diabetes (6) Anemia in chronic kidney disease (CKD) Assessment: better Plan HD as tolerated Watch BP cont with Epogen Subjective Subjective feels ok Objective Objective Last 24 Hour Vital Signs Date Time Temp Pulse Resp B/P Pulse Ox O2 Delivery O2 Flow Rate FiO2 05/29/16 11:44 98.2 79 18 156/87 95 Room Air 05/29/16 09:52 85 161/86 05/29/16 09:45 85 161/86 05/29/16 09:44 85 161/86 05/29/16 08:08 Room Air 3.0 05/29/16 07:44 97.0 79 18 152/88 98 Room Air 05/29/16 05:00 Room Air 3.0 05/29/16 03:53 97.5 75 20 148/71 Room Air 05/29/16 03:51 97.5 75 20 148/71 Room Air 05/29/16 00:37 170/100 05/29/16 00:00 98.1 86 19 173/105 Room Air 05/28/16 20:00 98.1 83 20 157/89 98 Room Air 05/28/16 18:10 82 168/99 05/28/16 16:00 98.2 84 18 147/79 96 Room Air 05/28/16 13:24 87 143/79 Intake and Output 05/28/16 05/29/16 19:00 07:00 Intake Total 1200 ml Balance 1200 ml Intake Oral 1200 ml # Bowel Movements 1 Laboratory Tests 05/29/16 05:30: White Blood Count 8.9, Red Blood Count 3.07L, Hemoglobin 9.4L, Hematocrit 29.5L , Mean Corpuscular Volume 96, Mean Corpuscular Hemoglobin 30.6, Mean Corpuscular Hemoglobin Concent 31.9L, Red Cell Distribution Width 17.3H, Platelet Count 161, Mean Platelet Volume 6.1L, Neutrophils (%) (Auto) 52.5, Lymphocytes (%) (Auto) 32.7, Monocytes (%) (Auto) 7.4, Eosinophils (%) (Auto) 6.2H, Basophils (%) (Auto) 1.1, Sodium Level 138, Potassium Level 5.5H, Chloride Level 91L, Carbon Dioxide Level 31H, Anion Gap 16H, Blood Urea Nitrogen 59H, Creatinine 6.3H, Estimat Glomerular Filtration Rate 8.2, Glucose Level 68L, Calcium Level 8.4L Height (Feet): 5 Height (Inches): 1.00 Weight (Pounds): 131 Cardiovascular: normal rate Extremities: other - no edema STEW LIN May 29, 2016 12:38
--- NOTE | 2016-05-29 17:21 | General Progress Note ---
Assessment/Plan Assessment/Plan ASSESSMENT: 1. Right upper extremitiy dvt - at this time, coumadin is on hold given recent hemorrhage, hgb must first be stable before restarting anticoag 2. Anemia on chronic kidney disease. ferritin 706, esr elevated, on epo, requiring occasional blood transfusions 3. 12 mm nodule in the liver 4. Elevated tumor markers. The patient with a history of elevated tumor markers , CA-199 and CA-125 were elevated. An imaging CT scan shows potential sclerosis versus metastatic neoplasm, metabolic abnormality, in addition 12 mm enhancing nodule noted nonspecific and liver, which will need to be followed up. Skeletal survey nonspecific and to obtain NM scan shows no evidence of malignancy. Ascitic results show no abnormalities 5. History of alcohol abuse. 6. Abdominal pain. 7. Atelectasis. 8. Pulmonary edema. 9. Ascites. RECOMMENDATION: 1. Holding coumadin given anemia 2. Continue epogen sq 3. Imaging of the liver nodule every six months per GI service to monitor nodule growth every six months, which is 12 mm, which will need to be followed up 4. Peripheral smear shows no abnormalities 5. Hemodialysis 3x a week 6. Appreciate pulm and nephro recs 7. Hgb goal >8 given esrd 8. Follow from heme perspective Subjective Constitutional: Reports: no symptoms HEENT: Reports: no symptoms Cardiovascular: Reports: no symptoms Respiratory: Reports: no symptoms Gastrointestinal/Abdominal: Reports: poor appetite Genitourinary: Reports: no symptoms Neurologic/Psychiatric: Reports: no symptoms Endocrine: Reports: no symptoms Hematologic/Lymphatic: Reports: anemia Allergies: Coded Allergies: No Known Allergies (Unverified , 09/20/15) Subjective stable, no events, no fevers or chills, no bleeding noted Objective Last 24 Hour Vital Signs Date Time Temp Pulse Resp B/P Pulse Ox O2 Delivery O2 Flow Rate FiO2 05/29/16 16:00 97.6 78 18 163/96 96 Room Air 05/29/16 14:29 89 164/98 05/29/16 11:44 98.2 79 18 156/87 95 Room Air 05/29/16 09:52 85 161/86 05/29/16 09:45 85 161/86 05/29/16 09:44 85 161/86 05/29/16 08:08 Room Air 3.0 05/29/16 07:44 97.0 79 18 152/88 98 Room Air 05/29/16 05:00 Room Air 3.0 05/29/16 03:53 97.5 75 20 148/71 Room Air 05/29/16 03:51 97.5 75 20 148/71 Room Air 05/29/16 00:37 170/100 05/29/16 00:00 98.1 86 19 173/105 Room Air 05/28/16 20:00 98.1 83 20 157/89 98 Room Air 05/28/16 18:10 82 168/99 Intake and Output 05/28/16 05/29/16 19:00 07:00 Intake Total 1200 ml Balance 1200 ml Intake Oral 1200 ml # Bowel Movements 1 Laboratory Tests 05/29/16 05:30: White Blood Count 8.9, Red Blood Count 3.07L, Hemoglobin 9.4L, Hematocrit 29.5L , Mean Corpuscular Volume 96, Mean Corpuscular Hemoglobin 30.6, Mean Corpuscular Hemoglobin Concent 31.9L, Red Cell Distribution Width 17.3H, Platelet Count 161, Mean Platelet Volume 6.1L, Neutrophils (%) (Auto) 52.5, Lymphocytes (%) (Auto) 32.7, Monocytes (%) (Auto) 7.4, Eosinophils (%) (Auto) 6.2H, Basophils (%) (Auto) 1.1, Sodium Level 138, Potassium Level 5.5H, Chloride Level 91L, Carbon Dioxide Level 31H, Anion Gap 16H, Blood Urea Nitrogen 59H, Creatinine 6.3H, Estimat Glomerular Filtration Rate 8.2, Glucose Level 68L, Calcium Level 8.4L Height (Feet): 5 Height (Inches): 1.00 Weight (Pounds): 131 General Appearance: no apparent distress EENT: TMs normal Neck: supple Cardiovascular: regular rhythm Respiratory/Chest: normal breath sounds Abdomen: no organomegaly Extremities: non-tender Edema: 1+ Leg (L), 1+ Leg (R) Edema: mild edema Neurologic: alert Skin: warm/dry Fabrizio Tobar May 29, 2016 17:21
--- NOTE | 2016-05-29 19:52 | Pulmonology Progress Note ---
Assessment/Plan Problems: (1) Cirrhosis of liver (2) Deep venous thrombosis of axillary vein (3) ESRD (end stage renal disease) (4) Hypothyroidism (5) Hemorrhage from arteriovenous dialysis graft (6) Ascites Assessment/Plan for paracentesis HD by nephrology f/u by vascular pain control transfuse when Hem< 7 med/surg dc planning Subjective ROS Limited/Unobtainable: No Constitutional: Reports: anorexia, fatigue Gastrointestinal/Abdominal: Reports: bloating, nausea, vomiting Neurologic: Reports: confusion, weakness Allergies: Coded Allergies: No Known Allergies (Unverified , 09/20/15) Objective Last 24 Hour Vital Signs Date Time Temp Pulse Resp B/P Pulse Ox O2 Delivery O2 Flow Rate FiO2 05/29/16 18:28 89 169/106 05/29/16 16:00 97.6 78 18 163/96 96 Room Air 05/29/16 14:29 89 164/98 05/29/16 11:44 98.2 79 18 156/87 95 Room Air 05/29/16 09:52 85 161/86 05/29/16 09:45 85 161/86 05/29/16 09:44 85 161/86 05/29/16 08:08 Room Air 3.0 05/29/16 07:44 97.0 79 18 152/88 98 Room Air 05/29/16 05:00 Room Air 3.0 05/29/16 03:53 97.5 75 20 148/71 Room Air 05/29/16 03:51 97.5 75 20 148/71 Room Air 05/29/16 00:37 170/100 05/29/16 00:00 98.1 86 19 173/105 Room Air 05/28/16 20:00 98.1 83 20 157/89 98 Room Air Intake and Output 05/28/16 05/29/16 19:00 07:00 Intake Total 1200 ml Balance 1200 ml Intake Oral 1200 ml # Bowel Movements 1 General Appearance: no acute distress HEENT: normocephalic, atraumatic, PERRL Respiratory/Chest: chest wall non-tender, decreased breath sounds, accessory muscle use Breasts: no masses Cardiovascular: normal peripheral pulses, normal rate, regular rhythm Abdomen: hypoactive bowel sounds, distended, guarding, tender, rebound tenderness, hernia, hepatomegaly Genitourinary: normal external genitalia Extremities: no cyanosis Skin: rash, lesions Neurologic/Psychiatric: stitch marker II-XII grossly normal, responsive, disoriented Laboratory Tests 05/29/16 05:30: White Blood Count 8.9, Red Blood Count 3.07L, Hemoglobin 9.4L, Hematocrit 29.5L , Mean Corpuscular Volume 96, Mean Corpuscular Hemoglobin 30.6, Mean Corpuscular Hemoglobin Concent 31.9L, Red Cell Distribution Width 17.3H, Platelet Count 161, Mean Platelet Volume 6.1L, Neutrophils (%) (Auto) 52.5, Lymphocytes (%) (Auto) 32.7, Monocytes (%) (Auto) 7.4, Eosinophils (%) (Auto) 6.2H, Basophils (%) (Auto) 1.1, Sodium Level 138, Potassium Level 5.5H, Chloride Level 91L, Carbon Dioxide Level 31H, Anion Gap 16H, Blood Urea Nitrogen 59H, Creatinine 6.3H, Estimat Glomerular Filtration Rate 8.2, Glucose Level 68L, Calcium Level 8.4L ANN MARIE OSULLIVAN May 29, 2016 19:52
--- NOTE | 2016-05-30 13:43 | Discharge Summary ---
Discharge Summary Hospital Course Date of Admission May 20, 2016 at 01:40 Date of Discharge May 29, 2016 at 19:00 Admitting Diagnosis ARTERIO VENOUS SHUNT BLEEDING HPI Isabelle Kay is a 61 year old female who was admitted on May 20, 2016 at 01: 40 for Arterio Venous Sunt Bleeding Hospital Course dc summary # [id number] Discharge Medications New Medications: Epoetin Vikas (Procrit) 20,000 Unit/1 Ml Vial 51428 UNITS SUBQ SUN-WED-SUN for 30 Days, VIAL Rifaximin* (Xifaxan*) 550 Mg Tablet 550 MG ORAL EVERY 12 HOURS for 30 Days, TAB Continued Medications: Acetaminophen* (Tylenol Extra Strength*) 500 Mg Tablet 650 MG ORAL Q4HR PRN for fever, TAB 0 Refills Amlodipine Besylate* (Amlodipine Besylate*) 10 Mg Tablet 10 MG ORAL DAILY, TAB Calcitriol (Rocaltrol) 0.25 Mcg Capsule 0.25 MCG PO, CAP Calcium Carbonate/Vitamin D3 (Calcium 600 + Vit D 400 Tablet) 1 Each Tablet 1 EACH PO, TAB Cinacalcet Hcl (Sensipar) 90 Mg Tablet 90 MG PO DAILY, TAB Clonidine Hcl* (Catapres*) 0.1 Mg Tablet 0.1 MG ORAL EVERY 6 HOURS, TAB Diphenhydramine Hcl* (Benadryl*) 25 Mg Capsule 25 MG ORAL Q6H PRN for Itching, CAP Docusate Sodium* (Docusil*) 100 Mg Capsule 100 MG ORAL Q12HR, CAP Ergocalciferol (Vitamin D2)* (Vitamin D*) 50,000 Unit Capsule 59385 UNIT ORAL ONCE A WEEK, CAP Hydralazine Hcl* (Hydralazine Hcl*) 50 Mg Tablet 50 MG ORAL EVERY 8 HOURS, TAB Hydrocodone Bit/Acetaminophen 5-325* ([place] 5-325*) 1 Each Tablet 1 TAB ORAL Q4H PRN for For Pain, TAB 0 Refills Insulin Aspart* (Novolog*) 100 Unit/1 Ml Insuln.pen 0 SUBQ, #1 EA 0 Refills Lactulose (Lactulose*) 20 Gm/30 Ml Solution 30 ML ORAL Q8HR, ML 0 Refills Lorazepam* (Ativan*) 0.5 Mg Tablet 0.5 MG ORAL Q4HR PRN for AD, TAB Losartan Potassium (Cozaar) 100 Mg Tablet 100 MG ORAL DAILY, TAB Mag Hydrox/Al Hydrox/Simeth (Maalox Advanced Suspension) 355 Ml Oral.susp 30 ML PO EVERY 12 HOURS, ML Metoclopramide Hcl* (Reglan*) 5 Mg Tablet 5 MG ORAL EVERY 6 HOURS, TAB Omeprazole (Omeprazole) 20 Mg Capsule.dr 20 MG ORAL DAILY, CAP Ondansetron Odt* (Zofran Odt*) 4 Mg Tab.rapdis 4 MG ORAL Q6H PRN for Nausea & Vomiting, #30 TAB Polyethylene Glycol 3350* (Miralax*) 17 Gm Powd.pack 17 GM ORAL DAILY PRN for Constipation, PACKET Sevelamer Hcl (Renagel) 800 Mg Tablet 800 MG ORAL THREE TIMES A DAY, #90 TAB 0 Refills Thiamine Hcl* (Vitamin B-1*) 100 Mg Tablet 100 MG ORAL DAILY, #30 TAB 0 Refills Tramadol Hcl* (Ultram*) 50 Mg Tablet 50 MG ORAL Q6H PRN for For Pain, #30 TAB 0 Refills Trazodone Hcl* (Desyrel*) 100 Mg Tablet 100 MG ORAL BEDTIME, TAB Zolpidem Tartrate* (Zolpidem Tartrate*) 5 Mg Tablet 5 MG ORAL BEDTIME PRN for Insomnia, TAB 0 Refills Discharge Condition Upon Discharge: stable Discharge Disposition Patient was discharged to SNF Discharge Diagnoses: [place] (Patti Upton NP May 30, 2016 13:43
--- NOTE | 2016-05-31 04:58 | Discharge Summary 2 SIG ---
DATE OF ADMISSION: 05/20/2016 DATE OF DISCHARGE: 05/29/2016 REASON FOR ADMISSION: 61-year-old female with a history of end-stage renal disease on hemodialysis, liver cirrhosis, diabetes, and hypertension, presented with complaint of bleeding from hemodialysis catheter. She apparently just finished dialysis and the nurse was trying to remove the needle, however, the site started to bleed profusely. The clamp was placed in and the patient was sent to the emergency department for evaluation. The patient denied fever or chills. Denied nausea and vomiting. She reported generalized pain 10/10 on a scale 1 to 10. The patient with a history of chronic pain syndrome. Workup in the emergency room revealed no fever. Blood pressure was elevated at 161/89. Pressure dressing was applied. The patient still was losing blood. Vitamin K was given in the emergency room and fresh-frozen plasma was ordered for subsequent transfusion. Lab work revealed anemia. EKG demonstrated normal sinus rhythm. No acute changes. Chest x-ray revealed no acute cardiopulmonary disease. The patient admitted for further management. ADMITTING DIAGNOSES: 1. Bleeding from the intravenous fistula. 2. Hypertensive urgency. 3. End-stage renal disease, on hemodialysis. 4. Alcoholic cirrhosis. 5. Diabetes mellitus. 6. Anemia of chronic renal disease. 7. Coagulopathy. HOSPITAL STAY: The patient admitted to telemetry floor. The patient undergone transfusion of total of four units of packed red blood cells and two units of fresh frozen plasma after vitamin K. Venous duplex revealed acute DVT right upper extremity axillary vein. Vascular surgery evaluation was requested. Vascular surgeon recommended elevate right upper extremity and Deon stocking to decrease edema. He recommended to place tunnelled PermCath, which was done on 05/29/2016. He advised to schedule patient as outpatient for right upper extremity AV fistula thrombectomy versus new shunt placement in 7 to 10 days after edema subsided . Hemodialysis was done as per criminal defense attorney, who was involved in care of this patient. Renal parameters and electrolytes were closely monitored, replaced and optimized as needed. Blood pressure was initially high. Antihypertensive regimen adjusted with multiply antihypertensive medications. Blood pressure stable prior to discharge. Blood sugar was treated with sliding scale of insulin and was stable. GI specialist closely followed the patient . The patient was placed on rifaximin and lactulose. Pain management provided. GI prophylaxis provided. LFTs were closely monitored. Hepatitis panel revealed hepatitis B core positive , likely representing resolved infection versus low-level chronic infection. The patient has a history of alcohol abuse. Abdominal ultrasound revealed evidence of ascites and left pleural effusion, but was negative for gallstones. Subsequently, the patient undergone paracentesis with removal of 5.6 liters of ascitic fluid. On previous admission , tumor markers elevated CA 19-9, CEA, and CA-125. On previous admission, workup was done for possible malignancy. CT of the abdomen /pelvis done on 04/17/2016 revealed diffuse skeletal sclerosis ; metastatic neoplasm versus metabolic abnormality as well as the liver nodule 12 mm. Subsequently, the patient undergone bone densitometry, which was nonspecific. Bone scan on 04/24/2016 revealed no evidence of malignancy. Ascitic fluid pathology after paracentesis on this admission- negative for malignant cells. Permaculture Contractor/oncologist closely followed the patient. Repeated CA-125 down to 40.3 while alpha-fetoprotein and CEA at this time within normal limits. The patient undergone EGD , which revealed mild chronic antral gastritis. GI recommended to continue lactulose and rifaximin and discontinue Inderal since no evidence of varices based on the last results of EGD. Bowel regimen instituted. Hemoglobin and hematocrit were closely monitored. GI recommended outpatient referral for liver transplant. Permaculture Contractor closely followed the patient as well. Per superintendent track, given recent hemorrhage, Coumadin on hold for now and hemoglobin and hematocrit need to be stable, before restarting anticoagulation. Patient with anemia of chronic kidney disease , workup revealed ferritin- 706. The patient was on Epogen. Peripheral blood smear showed no abnormality. Permaculture Contractor recommended every six months imaging of the liver nodule to monitor nodule growth. Pain management provided. Blood sugar was managed with the sliding scale of insulin was stable. The patient was stable for transfer to [facility]dc facility. DISCHARGE DIAGNOSES: 1. Bleeding from the arteriovenous fistula, stopped. 2. Hypertensive urgency, resolved. 3. Diabetes mellitus. 4. Chronic pain syndrome. 5. Alcoholic cirrhosis. 6. End-stage renal disease, on hemodialysis. 7. History of alcohol abuse. 8. Anemia of chronic renal disease. 9. Coagulopathy 10. Status post esophagogastroduodenoscopy 11. Mild chronic antral gastritis. 12. Status post right jugular tunnelled catheter placement. 13. Ascites. 14. Status post paracentesis with 5.6 liter of ascitic fluid removal DISCHARGE MEDICATIONS: See medication reconciliation list. DISCHARGE INSTRUCTIONS: The patient discharged to [facility] facility. Follow up with medical doctor at the facility. Follow up with outpatient hemodialysis three times a week. Recommended outpatient referral for liver transplant. Closely monitor hemoglobin and hematocrit, renal parameters, and blood pressure. Jackson Albright M.D. I have been assigned to dictate discharge summary on this account and I was not involved in the patient's management. Patti Johnston (Vanchtein) NShemar DR: Reji JOB#: [id number] CC: JAE
--- NOTE | 2016-06-06 10:10 | History & Physical ---
History and Physical History & Physicial HISTORY OF AND PHYSICAL History of Present Illness General Date patient seen: May 20, 2016 Time patient seen: 08:00 Chief Complaint: bleeding from AV fistula Present Illness HPI 61-year-old female with history renal failure, on hemodialysis and cirrhosis with ascites. Presented with chief complaint of bleeding from her dialysis graft. She finished dialysis and 9 PM 05/19 and when they remove the needle, her arm started to bleed profusely. They placed a clamp on it and sent her to ED. Never happened before Patient denied any fever chills denied any nausea, vomiting. Generalized pain 10 out of 10(chronic issue for her) in ED patient was applied pressure dressing, bleeding stopped vitamin K given, FFP ordered and patietn was transferred to [facility] for further management . HH 7.0/ 2.5, INR-1.3 Allergies: Coded Allergies: No Known Allergies (Unverified , 09/20/15) Medication History Scheduled Amlodipine Besylate* (Amlodipine Besylate*), 10 MG ORAL DAILY, (Reported) Aspirin Ec* (Aspirin Ec*), 81 MG ORAL DAILY, (Reported) Aspirin* (Aspirin*), 325 MG ORAL DAILY, (Reported) Calcitriol (Rocaltrol), 0.25 MCG PO DAILY, (Reported) Cephalexin* (Keflex*), 250 MG ORAL BID, (Reported) Cinacalcet Hcl (Sensipar), 90 MG PO DAILY, (Reported) Clonidine Hcl* (Catapres*), 0.1 MG ORAL EVERY 6 HOURS, (Reported) Cyanocobalamin (Vitamin B-12)* (Vitamin B-12*), 1,000 MCG ORAL DAILY, (Reported) Diphenoxylate HCl/Atropine (Lomotil Tablet), 1 EACH PO Q4HR, (Reported) Docusate Sodium* (Docusil*), 100 MG ORAL Q12HR, (Reported) Doxazosin Mesylate* (Cardura*), 2 MG ORAL DAILY, (Reported) Enoxaparin* (Lovenox*), 30 MG SUBQ DAILY, (Reported) Ergocalciferol (Vitamin D2)* (Vitamin D*), 50,000 UNIT ORAL ONCE A WEEK, ( Reported) Guaifenesin/Dextromethorphan (Guaifenesin-Dm Solution), 10 ML PO Q4HR, (Reported ) Heparin Sod (Porcine) (Heparin Sodium*), 5,000 UNITS SUBQ EVERY 12 HOURS, ( Reported) Hydralazine Hcl* (Hydralazine Hcl*), 50 MG ORAL EVERY 8 HOURS, (Reported) Hydromorphone Hcl (Dilaudid), 1 MG PO NEEDED, (Reported) Lactulose (Lactulose*), 30 ML ORAL Q8HR, (Reported) Lisinopril (Lisinopril*), 5 MG ORAL DAILY, (Reported) Losartan Potassium (Cozaar), 100 MG ORAL DAILY, (Reported) Mag Hydrox/Al Hydrox/Simeth (Maalox Advanced Suspension), 30 ML PO EVERY 12 HOURS, (Reported) Metoclopramide Hcl* (Reglan*), 5 MG ORAL EVERY 6 HOURS, (Reported) Omeprazole (Omeprazole), 20 MG ORAL DAILY, (Reported) Pantoprazole* (Pantoprazole*), 40 MG ORAL DAILY, (Reported) Propranolol Hcl* (Inderal*), 40 MG ORAL Q8HR, (Reported) Sevelamer Hcl (Renagel), 800 MG ORAL THREE TIMES A DAY, (Reported) Thiamine Hcl* (Vitamin B-1*), 100 MG ORAL DAILY, (Reported) Trazodone Hcl* (Desyrel*), 100 MG ORAL BEDTIME, (Reported) Scheduled PRN Acetaminophen (Acetaminophen), 650 MG ORAL Q6H PRN for Prn Headache/Temp > 101, (Reported) Acetaminophen* (Tylenol Extra Strength*), 650 MG ORAL Q4HR PRN for fever, ( Reported) Clonidine Hcl* (Catapres*), 0.1 MG ORAL EVERY 6 HOURS PRN for AD, (Reported) Clonidine Hcl* (Catapres*), 0.1 MG ORAL EVERY 4 HOURS PRN for For High Blood Pressure, (Reported) Dextrose 50 % in Water (Dextrose 50%-Water Syringe), 50 ML IV for Hypoglycemia, (Reported) Diphenhydramine Hcl* (Benadryl*), 25 MG ORAL Q6H PRN for Itching, (Reported) Hydrocodone Bit/Acetaminophen 5-325* (Clovis 5-325*), 1 TAB ORAL Q4H PRN for For Pain, (Reported) Ipratropium Neches 0.5MG/2.5ML (Ipratropium Neches 0.5MG/2.5ML), 3 ML HHN Q4HR PRN for Shortness of Breath, (Reported) Lorazepam* (Ativan*), 0.5 MG ORAL Q4HR PRN for AD, (Reported) Melatonin (Melatonin 3 Mg Tablet), 1 TAB ORAL BEDTIME PRN for Insomnia, ( Reported) Morphine Sulfate (Morphine Sulfate 1 mg/ml Vial), 1 MG IVP Q4HR PRN for For Pain , (Reported) Ondansetron Odt* (Zofran Odt*), 4 MG ORAL Q6H PRN for Nausea & Vomiting, ( Reported) Ondansetron* (Zofran*), 4 MG IVP Q6H PRN for Nausea & Vomiting, (Reported) Polyethylene Glycol 3350* (Miralax*), 17 GM ORAL DAILY PRN for Constipation, ( Reported) Tramadol Hcl* (Ultram*), 50 MG ORAL Q6H PRN for For Pain, (Reported) Zolpidem Tartrate* (Zolpidem Tartrate*), 5 MG ORAL BEDTIME PRN for Insomnia, ( Reported) Miscellaneous Medications Calcitriol (Rocaltrol), 0.25 MCG PO, (Reported) Calcium Carbonate/Vitamin D3 (Calcium 600 + Vit D 400 Tablet), 1 EACH PO, ( Reported) Insulin Aspart* (Novolog*), 0 SUBQ, (Reported) Patient History Healthcare decision maker Resuscitation status Full Code Advanced Directive on File No Past Medical/Surgical History: (1) Abnormal LFTs (2) Thrombocytopenia (3) Transaminitis (4) Anemia (5) Diabetes (6) Gastritis (7) Hypothyroidism (8) Cirrhosis of liver (9) ESRD (end stage renal disease) (10) GERD (gastroesophageal reflux disease) (11) H/O ETOH abuse (12) HTN (hypertension) (13) CHF (congestive heart failure) (14) Chronic pain (15) Anemia in chronic kidney disease (CKD) (16) Ascites Review of Systems Constitutional: Reports: weakness Eye: Reports: no symptoms ENT: Reports: no symptoms Respiratory: Reports: no symptoms Cardiovascular: Reports: other - HTN Gastrointestinal: Reports: other - liver cirrhosis Genitourinary: Reports: see HPI Psychiatric: Reports: no symptoms Neurological: Reports: no symptoms Endocrine: Reports: other - DM Hematologic/Lymphatic: Reports: anemia Physical Exam General Appearance: WD/WN, no apparent distress, alert Lines, tubes and drains: peripheral HEENT: normocephalic, atraumatic, anicteric, mucous membranes moist Neck: non-tender, normal alignment, supple Respiratory/Chest: lungs clear, no respiratory distress, no accessory muscle use Cardiovascular/Chest: normal rate, regular rhythm - SR on tele , no JVD Abdomen: normal bowel sounds, non tender, soft Extremities: normal range of motion, no calf tenderness, normal capillary refill, other - RUE AV shunt with dressing C/D/I, R hand and R forearm with edema, cool to touch, + pulses/+ sensation /+ TTP Skin Exam: warm/dry Neurologic: talkback host II-XII grossly normal, alert, oriented x 3, responsive Musculoskeletal: normal muscle bulk Last 24 Hour Vital Signs Date Time Temp Pulse Resp B/P Pulse Ox O2 Delivery O2 Flow Rate FiO2 05/20/16 06:30 97.7 05/20/16 05:58 178/103 05/20/16 04:23 94 05/20/16 04:05 97.7 95 16 05/20/16 04:05 97.7 95 16 163/103 100 Room Air 05/20/16 03:50 97.3 93 16 05/20/16 03:50 97.3 85 16 179/98 100 Room Air 05/20/16 02:40 96.8 85 18 157/80 100 Room Air 05/20/16 02:15 96.8 85 18 157/80 100 Room Air 05/20/16 01:15 96.8 05/20/16 00:49 96.8 88 18 149/79 100 Room Air 05/20/16 00:45 96.8 05/20/16 00:21 194/93 05/20/16 00:15 96.8 94 23 194/93 100 Room Air 05/19/16 23:33 96.8 96 18 161/89 94 Room Air Intake and Output 05/19/16 05/20/16 19:00 07:00 Intake Total 155.5 ml Balance 155.5 ml Intake Oral 100 ml IV Total 55.5 ml # Voids 1 Laboratory Tests Test 05/20/16 00:00 White Blood Count 7.7 K/UL (4.8-10.8) Red Blood Count 2.17 M/UL (4.20-5.40) L Hemoglobin 7.0 G/DL (12.0-16.0) L Hematocrit 22.5 % (37.0-47.0) L Mean Corpuscular Volume 104 FL (80-99) H Mean Corpuscular Hemoglobin 32.2 PG (27.0-31.0) H Mean Corpuscular Hemoglobin Concent 31.1 G/DL (32.0-36.0) L Red Cell Distribution Width 18.0 % (11.6-14.8) H Platelet Count 191 K/UL (150-450) Mean Platelet Volume 4.7 FL (6.5-10.1) L Neutrophils (%) (Auto) % (45.0-75.0) Lymphocytes (%) (Auto) % (20.0-45.0) Monocytes (%) (Auto) % (1.0-10.0) Eosinophils (%) (Auto) % (0.0-3.0) Basophils (%) (Auto) % (0.0-2.0) Prothrombin Time 13.4 SEC (9.30-11.50) H Prothromb Time International Ratio 1.3 (0.9-1.1) H Activated Partial Thromboplast Time 31 SEC (23-33) Sodium Level 139 mEQ/L (135-145) Potassium Level 4.5 mEQ/L (3.4-4.9) Chloride Level 96 mEQ/L (98-107) L Carbon Dioxide Level 35 mEQ/L (20-30) H Anion Gap 8 (5-15) Blood Urea Nitrogen 15 mg/dL (7-23) Creatinine 2.5 mg/dL (0.5-0.9) H Estimat Glomerular Filtration Rate 23.9 mL/min (>60) Glucose Level 104 mg/dL (74-106) Calcium Level 8.5 mg/dL (8.6-10.2) L Height (Feet): 5 Height (Inches): 7.00 Weight (Pounds): 130 Medications Current Medications Medications (Trade) Dose Ordered Sig/Ranjan Route PRN Reason Start Time Stop Time Status Last Admin Dose Admin Acetaminophen (Tylenol) 500 mg EVERY 6 HOURS PRN ORAL Mild Pain/Temp > 100.5 05/20/16 05:15 06/19/16 05:14 Amlodipine Besylate (Norvasc) 10 mg DAILY ORAL 05/20/16 09:00 06/19/16 08:59 Calcitriol (Rocatrol) 0.25 mcg DAILY ORAL 05/20/16 09:00 06/19/16 08:59 Clonidine HCl (Catapres) 0.1 mg Q4H PRN ORAL For High Blood Pressure 05/20/16 05:15 06/19/16 05:14 05/20/16 05:58 Dextrose (Dextrose 50%) STAT PRN IV Hypoglycemia 05/20/16 05:15 06/19/16 05:14 Diphenhydramine HCl (Benadryl) 25 mg Q6H PRN ORAL Itching/Pruritis 05/20/16 05:15 06/19/16 05:14 Morphine Sulfate (Morphine Sulfate) 2 mg EVERY 4 HOURS PRN IVP Severe Pain (Pain Scale 7-10) 05/20/16 05:15 05/27/16 05:14 05/20/16 05:58 Ondansetron HCl (Zofran) 4 mg Q6H PRN IVP Nausea & Vomiting 05/20/16 05:15 06/19/16 05:14 Pantoprazole (Protonix) 40 mg DAILY ORAL 05/20/16 09:00 06/19/16 08:59 Polyethylene Glycol (Miralax) 17 gm DAILYPRN PRN ORAL Constipation 05/20/16 05:15 06/19/16 05:14 Propranolol HCl (Inderal) 25 mg TID ORAL 05/20/16 09:00 06/19/16 08:59 Rifaximin (Xifaxan) 550 mg EVERY 12 HOURS ORAL 05/20/16 09:00 05/27/16 08:59 Tramadol HCl (Ultram) 50 mg Q6H PRN ORAL Moderate Pain (Pain Scale 4-6) 05/20/16 05:15 05/27/16 05:14 Assessment/Plan Assessment/Plan ASSESSMENT bleeding from AV fistula HTN urgency anemia of chronic renal disease coagulopathy alcoholic cirrhosis ESRD chronic pain syndrome Hx of ETOH abuse PLAN OF CARE tele bleeding stopped with pressure dressing transfuse 1 u PRBC s/p vit K give 1 u FFP today Arterial and Venous Duplex stat vascular surgery eval- BP management with CCB and BB, optimize further as needed check LFT, ammonia, Rifaximin resumed pain management nephro eval, HD as per further nephro orders ( last 05/19) GI prophylaxis case discussed and evaluated by supervising physician Preston Rodrigues)Patti NP May 20, 2016 08:38 Preston Rodrigues)Patti NP Jun 06, 2016 10:10
== END 2016-05-29 19:00 | disposition home health service (06) | DRG 314 ==
LOC: EDBD 23:33 → EMR 05-20 00:18 → EDBEDREQ 05-20 01:34 → 2E 05-20 01:40 → EDBEDREQ 05-20 02:30 → 2E 05-20 03:11 → 4W 05-24 14:24
PROC: 30233N1 Transfusion of Nonautologous Red Blood Cells into Peripheral Vein, Percutaneous Approach (ICD-10-PCS; principal; 2016-05-20)
PROC: 30233K1 Transfusion of Nonautologous Frozen Plasma into Peripheral Vein, Percutaneous Approach (ICD-10-PCS; principal; 2016-05-20)
PROC: 02H633Z Insertion of Infusion Device into Right Atrium, Percutaneous Approach (ICD-10-PCS; 2016-05-22)
PROC: 0W9G3ZZ Drainage of Peritoneal Cavity, Percutaneous Approach (ICD-10-PCS; 2016-05-23)
PROC: 5A1D60Z (ICD-10-PCS; 2016-05-26)
DX: T82.838A Hemorrhage due to vascular prosthetic devices, implants and grafts, initial encounter (principal); N18.6 End stage renal disease; D68.9 Coagulation defect, unspecified; J81.1 Chronic pulmonary edema; E46 Unspecified protein-calorie malnutrition; I82.A11 Acute embolism and thrombosis of right axillary vein; I12.0 Hypertensive chronic kidney disease with stage 5 chronic kidney disease or end stage renal disease; J98.11 Atelectasis; D63.1 Anemia in chronic kidney disease; I16.0 Hypertensive urgency; E11.9 Type 2 diabetes mellitus without complications; T82.868A Thrombosis due to vascular prosthetic devices, implants and grafts, initial encounter; K70.31 Alcoholic cirrhosis of liver with ascites; Z99.2 Dependence on renal dialysis; Y83.8 Other surgical procedures as the cause of abnormal reaction of the patient, or of later complication, without mention of misadventure at the time of the procedure; F10.21 Alcohol dependence, in remission; G89.4 Chronic pain syndrome; K29.70 Gastritis, unspecified, without bleeding; K21.9 Gastro-esophageal reflux disease without esophagitis; I25.2 Old myocardial infarction; I25.10 Atherosclerotic heart disease of native coronary artery without angina pectoris; R10.9 Unspecified abdominal pain; K76.9 Liver disease, unspecified; E03.9 Hypothyroidism, unspecified; R97.1 Elevated cancer antigen 125 [CA 125]; I48.91 Unspecified atrial fibrillation; R00.0 Tachycardia, unspecified; T82.858A Stenosis of other vascular prosthetic devices, implants and grafts, initial encounter; Y83.2 Surgical operation with anastomosis, bypass or graft as the cause of abnormal reaction of the patient, or of later complication, without mention of misadventure at the time of the procedure
CPT/HCPCS: 36415; 71010; 76000; 76700; 76942; 80048; 80053; 82105; 82140; 82378; 82728; 82962; 82977; 83540; 83550; 83615; 83735; 83880; 84100; 84550; 85007; 85025; 85384; 85610; 85730; 86140; 86304; 86703; 86705; 86709; 86803; 86850; 86870; 86900; 86901; 86904; 86920; 86927; 87081; 87340; 93005; 93922; 93930; 93970; J2250; J2405

== ENCOUNTER 2018-03-20 19:30 | Inpatient (IN) | payer MEDICARE, MEDICAID ==
[~2018-03-20] VITALS: Ht 170.2 cm; Wt 63.5 kg
[~2018-03-20 19:30] MED LIST changes: +PROCRIT20000 UNI2 SUBQ; +XIFAXAN550 MG ORAL
[2018-03-20 19:33] VITALS: BP 203/97
--- NOTE | 2018-03-20 19:33 | NUR ---
ED Nurse Note: Pt during the dialysis and then start having SOB. Pt states she has difficult breathing for these days, today got worse. fistula located on R arm. bruit and trill noted. pt is alert and oriented times 4.
[2018-03-20] MEDS ORDERED: EPOGEN2000 UNIT/ SUBQ (19:37)
[2018-03-20] MEDS ORDERED: VENOFER100 MG/5 M IV (19:37)
[2018-03-20] MEDS ORDERED: Albuterol/Ipratropium 3ml neb HHN ONE (19:45)
[2018-03-20 20:24] LABS: BASOPHILS % (AUTO) 1.2 % (0.0-2.0); EOSINOPHILS % (AUTO) 7.5 % (0.0-3.0); HEMOGLOBIN 12.2 G/DL (12.0-16.0); LYMPHOCYTES % (AUTO) 7.9 % (20.0-45.0); MEAN CORPUSCULAR VOLUME 105 FL (80-99); MONOCYTES % (AUTO) 6.3 % (1.0-10.0); NEUTROPHILS % (AUTO) 77.1 % (45.0-75.0); PLATELET COUNT 241 K/UL (150-450); RED BLOOD COUNT 3.72 M/UL (4.20-5.40); RED CELL DISTRIBUTION WIDTH 17.2 % (11.6-14.8); WHITE BLOOD COUNT 8.2 K/UL (4.8-10.8)
[2018-03-20 20:42] LABS: ANION GAP 7 mmol/L (5-15); BLOOD UREA NITROGEN 14 mg/dL (7-18); CALCIUM 8.4 MG/DL (8.5-10.1); CARBON DIOXIDE 33 MMOL/L (21-32); CHLORIDE 102 MMOL/L (98-107); CREATININE 3.3 MG/DL (0.55-1.30); POTASSIUM 4.3 MMOL/L (3.5-5.1); SODIUM 142 MMOL/L (136-145)
[2018-03-20] MEDS ORDERED: Morphine Sulfate 4mg/ml Inj (IV/IM USE ONLY) IVP ONE (20:45)
[2018-03-20 20:57] LABS: ALANINE AMINOTRANSFERASE 9 U/L (12-78); ALBUMIN 2.4 G/DL (3.4-5.0); ALBUMIN/GLOBULIN RATIO 0.5 (1.0-2.7); ALKALINE PHOSPHATASE 126 U/L (46-116); ASPARTATE AMINO TRANSFERASE 28 U/L (15-37); BILIRUBIN,TOTAL 0.3 MG/DL (0.2-1.0); CKMB 1.6 NG/ML (0.0-3.6); CREATINE KINASE 90 U/L (26-308)
[2018-03-20 21:30] VITALS: BP 190/90
--- NOTE | 2018-03-20 21:52 | Emergency Room Report ---
History of Present Illness General Chief Complaint: Dyspnea/Respdistress Source: Patient Present Illness HPI This is a 63-year-old female presented after increased chest discomfort and shortness of breath. Patient was brought in by EMS. Patient reports having a prior history of heart attack in the past. She had been undergoing dialysis during onset of worsened difficulty breathing. Patient had prior history of hypertension and normally takes clonidine. Patient had approximately 3 hours of dialysis normally she goes for 3-1/2 hours.Patient reports having some worsening shortness of breath over the past few days. She denies any fever. She had nonproductive cough. Patient was started on supplemental oxygen by EMS. Allergies: Coded Allergies: No Known Allergies (Unverified , 09/20/15) Patient History Past Medical History: see triage record Now: No Reviewed Nursing Documentation: PMH: Agreed; PSxH: Agreed Nursing Documentation-PMH Past Medical History: No Stated History Hx Cardiac Problems: Yes - IA Hx Hypertension: Yes Hx Diabetes: Yes Hx Cancer: No Hx Gastrointestinal Problems: Yes Hx Dialysis: Yes - ESRD History Of Psychiatric Problem: Yes - subtance abuse Hx Neurological Problems: No Hx Cerebrovascular Accident: Yes - heart attack Hx Seizures: Yes Review of Systems All Other Systems: negative except mentioned in HPI Physical Exam Vital Signs Date Time Temp Pulse Resp B/P (MAP) Pulse Ox O2 Delivery O2 Flow Rate FiO2 03/20/18 19:21 98.8 111 24 203/97 100 Simple Mask 15.0 03/20/18 19:33 99 Sp02 EP Interpretation: reviewed, normal General Appearance: normal inspection, alert, GCS 15, moderate distress, Chronically Ill Head: atraumatic ENT: normal ENT inspection, hearing grossly normal, normal voice Neck: normal inspection, full range of motion, supple, no bony tend Respiratory: normal inspection, no retraction, other - Decreased breath sounds Cardiovascular #1: regular rate, rhythm, no edema Gastrointestinal: normal inspection, normal bowel sounds, non tender, soft, no guarding, no hernia Genitourinary: no CVA tenderness Musculoskeletal: normal inspection, back normal, normal range of motion Neurologic: normal inspection, alert, responsive, speech normal Psychiatric: normal inspection, judgement/insight normal, mood/affect normal Skin: normal inspection, normal color, no rash Medical Decision Making Diagnostic Impression: Primary Impression: ESRD (end stage renal disease) Additional Impressions: Cirrhosis of liver CHF (congestive heart failure) ER Course Patient presented for shortness of breath. Differential included but was not limited to anemia, pneumonia, pneumothorax, myocardial infarction, pericardial effusion, congestive heart failure, acidosis. Patient was noted to have some continued hypertension she was given clonidine. Patient had been noted to have prior history of ascites as well as end-stage renal disease. Patient was given medications for continued pain. Dr. Jackson Albright was contacted for inpatient management Labs Test 03/20/18 19:59 White Blood Count 8.2 K/UL (4.8-10.8) Red Blood Count 3.72 M/UL (4.20-5.40) Hemoglobin 12.2 G/DL (12.0-16.0) Hematocrit 39.0 % (37.0-47.0) Mean Corpuscular Volume 105 FL (80-99) Mean Corpuscular Hemoglobin 32.8 PG (27.0-31.0) Mean Corpuscular Hemoglobin Concent 31.3 G/DL (32.0-36.0) Red Cell Distribution Width 17.2 % (11.6-14.8) Platelet Count 241 K/UL (150-450) Mean Platelet Volume 6.1 FL (6.5-10.1) Neutrophils (%) (Auto) 77.1 % (45.0-75.0) Lymphocytes (%) (Auto) 7.9 % (20.0-45.0) Monocytes (%) (Auto) 6.3 % (1.0-10.0) Eosinophils (%) (Auto) 7.5 % (0.0-3.0) Basophils (%) (Auto) 1.2 % (0.0-2.0) Sodium Level 142 MMOL/L (136-145) Potassium Level 4.3 MMOL/L (3.5-5.1) Chloride Level 102 MMOL/L (98-107) Carbon Dioxide Level 33 MMOL/L (21-32) Anion Gap 7 mmol/L (5-15) Blood Urea Nitrogen 14 mg/dL (7-18) Creatinine 3.3 MG/DL (0.55-1.30) Estimat Glomerular Filtration Rate 17.2 mL/min (>60) Glucose Level 100 MG/DL (74-106) Lactic Acid Level 0.80 mmol/L (0.4-2.0) Calcium Level 8.4 MG/DL (8.5-10.1) Total Bilirubin 0.3 MG/DL (0.2-1.0) Aspartate Amino Transf (AST/SGOT) 28 U/L (15-37) Alanine Aminotransferase (ALT/SGPT) 9 U/L (12-78) Alkaline Phosphatase 126 U/L (46-116) Total Creatine Kinase 90 U/L (26-308) Creatine Kinase MB 1.6 NG/ML (0.0-3.6) Creatine Kinase MB Relative Index 1.7 Troponin I 0.087 ng/mL (0.000-0.056) Total Protein 7.2 G/DL (6.4-8.2) Albumin 2.4 G/DL (3.4-5.0) Globulin 4.8 g/dL Albumin/Globulin Ratio 0.5 (1.0-2.7) EKG Diagnostic Results Rate: normal Rhythm: NSR ST Segments: no acute changes Last Vital Signs Date Time Temp Pulse Resp B/P (MAP) Pulse Ox O2 Delivery O2 Flow Rate FiO2 03/20/18 21:24 98.8 03/20/18 21:23 195/90 03/20/18 20:12 94 20 100 Nasal Cannula 2.0 28 Status: improved Disposition: ADMITTED INPATIENT Condition: Stable Larry Peguero MD Mar 20, 2018 21:52
[2018-03-20 23:08] VITALS: BP 164/73
--- NOTE | 2018-03-20 23:17 | NUR ---
ED Nurse Note: PT is transfered to TELE to receving RN NORA. pt has been transfered with all belongins. pt status, condition, and vital signs are reported to ERMD and receving RN prior to transfer. pt is stable for transfer.
--- NOTE | 2018-03-20 23:30 | NUR ---
NURSE NOTES: Received patient from ED, transferred via gurney, report received from JEAN CARLOS Mena. Patient awake, alert and verbally responsive. No SOB no acute distress on 2 L via NC. Pt complaining of pain on shoulders and back, will verify meds with MD first. IV site on L hand #20, patent and intact. AV shunt on R upper arm with dry and intact dressing + bruit and thrill. No skin breakdown noted. Oriented to unit and staff, instructed to press call light for any assistance, verbalized understanding. Belongings include a cellphone and walker remains in the room. Bed at lowest position, call light within reach. Will continue plan of care. Paged Dr. Albright for admission orders.
--- NOTE | 2018-03-21 00:20 | NUR ---
NURSE NOTES: Obtained admission orders from Dr. Albright. Noted and carried out.
[2018-03-21] MEDS ORDERED: Albuterol/Ipratropium 3ml neb HHN PRN (00:30)
[2018-03-21] MEDS ORDERED: Lomotil 2.5mg tab ORAL PRN (00:30)
[2018-03-21] MEDS ORDERED: Zolpidem 5mg tab ORAL PRN (00:30)
[2018-03-21] MEDS ORDERED: Acetaminophen 500mg (ES) tab ORAL PRN (00:30)
[2018-03-21] MEDS ORDERED: traMADol 50mg tab ORAL PRN (02:00)
--- NOTE | 2018-03-21 03:44 | NUR ---
NURSE NOTES: Patient asleep, breathing even and unlabored. No s/sx of pain nor any discomfort at this time. Remains sinus rhythm on building admin. Bed at lowest position, call light within reach. Will continue to monitor.
[2018-03-21 04:00] VITALS: BP 155/87
[2018-03-21] MEDS: NovoLOG Insulin Flexpen SUBQ SCH ×4 (06:27→21:00)
[2018-03-21 07:06] LABS: BASOPHILS % (AUTO) 1.9 % (0.0-2.0); EOSINOPHILS % (AUTO) 14.4 % (0.0-3.0); HEMATOCRIT 34.1 % (37.0-47.0); HEMOGLOBIN 10.4 G/DL (12.0-16.0); LYMPHOCYTES % (AUTO) 10.3 % (20.0-45.0); MEAN CORPUSCULAR VOLUME 107 FL (80-99); MONOCYTES % (AUTO) 7.6 % (1.0-10.0); NEUTROPHILS % (AUTO) 65.9 % (45.0-75.0); PLATELET COUNT 203 K/UL (150-450); RED BLOOD COUNT 3.18 M/UL (4.20-5.40); RED CELL DISTRIBUTION WIDTH 18.2 % (11.6-14.8)
--- NOTE | 2018-03-21 07:28 | NUR ---
HAND-OFF: Report given to JEAN CARLOS Hale. Endorsed plan of care.
--- NOTE | 2018-03-21 07:38 | NUR ---
NURSE NOTES: Received report from JEAN CARLOS Morales. Pt is sleeping. No distress noted. Bed is in lowest position, side rails up X2,and call light is within reach. Will continue to monitor.
[2018-03-21 07:43] LABS: ALANINE AMINOTRANSFERASE 13 U/L (12-78); ALBUMIN 2.1 G/DL (3.4-5.0); ALBUMIN/GLOBULIN RATIO 0.5 (1.0-2.7); ALKALINE PHOSPHATASE 109 U/L (46-116); ANION GAP 4 mmol/L (5-15); ASPARTATE AMINO TRANSFERASE 23 U/L (15-37); BILIRUBIN,TOTAL 0.3 MG/DL (0.2-1.0); BLOOD UREA NITROGEN 20 mg/dL (7-18); CALCIUM 8.1 MG/DL (8.5-10.1); CARBON DIOXIDE 34 MMOL/L (21-32); CHLORIDE 103 MMOL/L (98-107); CREATININE 4.1 MG/DL (0.55-1.30); PHOSPHORUS 4.9 MG/DL (2.5-4.9); POTASSIUM 4.8 MMOL/L (3.5-5.1); SODIUM 141 MMOL/L (136-145)
[2018-03-21 08:00] VITALS: BP 123/69
[2018-03-21] MEDS: Nephrovite tab (Rena-Vite) ORAL SCH (09:16)
[2018-03-21] MEDS: Labetalol 200mg tab ORAL SCH ×2 (09:16→21:32)
[2018-03-21] MEDS: Lyrica 75mg cap ORAL SCH ×2 (09:17→17:10)
--- NOTE | 2018-03-21 09:47 | Diagnostic Imaging Report ---
Indication: Shortness of breath Technique: One view of the chest Comparison: 05/20/2016 Findings: Interim development of bilateral interstitial and airspace disease diffusely, but especially at the lung bases. There are probably small bilateral pleural effusions as well. The heart remains enlarged. Right innominate venous stent is again demonstrated. Additional stents are seen in the subclavian vein and right arm. Surgical hardware is seen in the cervical spine Impression: Bilateral diffuse interstitial and airspace infiltrates versus edema. Probable small bilateral pleural effusions Other findings as noted
--- NOTE | 2018-03-21 11:15 | Consultation ---
Consult Note Consult Note asked to eval for dialysis management patient know to me from her previous admission This is a 63-year-old female presented after increased chest discomfort and shortness of breath. Patient was brought in by EMS. Patient reports having a prior history of heart attack in the past. She had been undergoing dialysis during onset of worsened difficulty breathing. Patient had prior history of hypertension and normally takes clonidine. Patient had approximately 3 hours of dialysis normally she goes for 3-1/2 hours.Patient reports having some worsening shortness of breath over the past few days. She denies any fever. She had nonproductive cough. Patient was started on supplemental oxygen by EMS. 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
[2018-03-21] MEDS ORDERED: HydrALAZINE 25mg tab ORAL PRN (11:30)
--- NOTE | 2018-03-21 11:42 | NUR ---
NURSE NOTES: took patients home mediation to pharmacy to be stored
--- NOTE | 2018-03-21 11:46 | NUR ---
NURSE NOTES: Called [facility] to schedule HD for pt on 03/22/18. Spoke with Veronika. She will have the nurse call me to confirm.
[2018-03-21 11:50] LABS: CHOLESTEROL 159 MG/DL (< 200); HDL CHOLESTEROL 71 MG/DL (40-60); TRIGLYCERIDES 41 MG/DL (30-150)
[2018-03-21 12:00] VITALS: BP 119/71
[2018-03-21 12:00] LABS: FERRITIN 512 NG/ML (8-388)
[2018-03-21 12:14] LABS: % IRON SATURATION 26 % (15-50); IRON 39 ug/dL (50-175); TOTAL IRON BINDING CAPACITY 149 ug/dL (250-450)
[2018-03-21] MEDS: cloNIDine 0.2mg Tab ORAL SCH ×2 (13:27→22:00)
[2018-03-21] MEDS: Docusate 100mg cap ORAL SCH ×2 (13:28→17:09)
[2018-03-21] MEDS: Morphine Sulfate 4mg/ml Inj (IV/IM USE ONLY) IVP PRN ×2 (13:28→20:59)
--- NOTE | 2018-03-21 13:41 | Consultation ---
History of Present Illness General Date patient seen: Mar 21, 2018 Chief Complaint: Dyspnea/Respdistress Present Illness HPI 63-year-old female with hx of ESRF, HTN, cirrhosis, DM, CAD, s/p UT, recurrent ascites, presented to ER with CC of chest discomfort and shortness of breath. Patient reports having some worsening shortness of breath over the past few days. She denies any fever. She had nonproductive cough. Patient was started on supplemental oxygen by EMS. She is complaining of neck pain radiating to both shoulders. And wants some morphine for it. Allergies: Coded Allergies: No Known Allergies (Unverified , 09/20/15) Medication History Scheduled Amlodipine Besylate* (Amlodipine Besylate*), 10 MG ORAL DAILY, (Reported) Epoetin Vikas (Epogen), 2,000 UNIT SUBQ 3XW, (Reported) Ergocalciferol (Vitamin D2)* (Vitamin D*), 50,000 UNIT ORAL ONCE A WEEK, ( Reported) Hydralazine Hcl* (Hydralazine Hcl*), 50 MG ORAL EVERY 8 HOURS, (Reported) Lactulose (Lactulose*), 30 ML ORAL Q8HR, (Reported) Losartan Potassium (Cozaar), 100 MG ORAL DAILY, (Reported) Mag Hydrox/Al Hydrox/Simeth (Maalox Advanced Suspension), 30 ML PO EVERY 12 HOURS, (Reported) Metoclopramide Hcl* (Reglan*), 5 MG ORAL EVERY 6 HOURS, (Reported) Omeprazole (Omeprazole), 20 MG ORAL DAILY, (Reported) Rifaximin* (Xifaxan*), 550 MG ORAL EVERY 12 HOURS Sevelamer Hcl (Renagel), 800 MG ORAL THREE TIMES A DAY, (Reported) Thiamine Hcl* (Vitamin B-1*), 100 MG ORAL DAILY, (Reported) Trazodone Hcl* (Desyrel*), 100 MG ORAL BEDTIME, (Reported) Scheduled PRN Acetaminophen* (Tylenol Extra Strength*), 650 MG ORAL Q4HR PRN for fever, ( Reported) Diphenhydramine Hcl* (Benadryl*), 25 MG ORAL Q6H PRN for Itching, (Reported) Hydrocodone Bit/Acetaminophen 5-325* ([place] 5-325*), 1 TAB ORAL Q4H PRN for For Pain, (Reported) Lorazepam* (Ativan*), 0.5 MG ORAL Q4HR PRN for AD, (Reported) Ondansetron Odt* (Zofran Odt*), 4 MG ORAL Q6H PRN for Nausea & Vomiting, ( Reported) Polyethylene Glycol 3350* (Miralax*), 17 GM ORAL DAILY PRN for Constipation, ( Reported) Tramadol Hcl* (Ultram*), 50 MG ORAL Q6H PRN for For Pain, (Reported) Zolpidem Tartrate* (Zolpidem Tartrate*), 5 MG ORAL BEDTIME PRN for Insomnia, ( Reported) Miscellaneous Medications Insulin Aspart* (Novolog*), 0 SUBQ, (Reported) Iron Sucrose (Venofer), 100 MG IV, (Reported) Discontinued Medications Calcitriol (Rocaltrol), 0.25 MCG PO, (Reported) Discontinued Reason: MD discontinued med Calcium Carbonate/Vitamin D3 (Calcium 600 + Vit D 400 Tablet), 1 EACH PO, ( Reported) Discontinued Reason: MD discontinued med Cinacalcet Hcl (Sensipar), 90 MG PO DAILY, (Reported) Discontinued Reason: MD discontinued med Clonidine Hcl* (Catapres*), 0.1 MG ORAL EVERY 6 HOURS, (Reported) Discontinued Reason: Medication dose changed Docusate Sodium* (Docusil*), 100 MG ORAL Q12HR, (Reported) Discontinued Reason: MD discontinued med Epoetin Vikas (Procrit), 10,000 UNITS SUBQ MON-WED-FRI Discontinued Reason: MD discontinued med Patient History Healthcare decision maker Resuscitation status Full Code Advanced Directive on File No Past Medical/Surgical History Past Medical/Surgical History: (1) Diabetes (2) Hypothyroidism (3) GERD (gastroesophageal reflux disease) (4) HTN (hypertension) (5) H/O ETOH abuse (6) Cirrhosis of liver (7) ESRD (end stage renal disease) (8) Anemia (9) Deep venous thrombosis of axillary vein Review of Systems All Other Systems: negative except mentioned in HPI Physical Exam General Appearance: cachetic Lines, tubes and drains: peripheral HEENT: normocephalic, atraumatic Neck: non-tender, normal alignment Respiratory/Chest: chest wall non-tender, lungs clear Breasts: no masses Cardiovascular/Chest: normal peripheral pulses, normal rate Abdomen: normal bowel sounds Genitourinary/Rectal: normal genital exam Extremities: normal range of motion Skin Exam: normal pigmentation 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 Last 24 Hour Vital Signs Date Time Temp Pulse Resp B/P (MAP) Pulse Ox O2 Delivery O2 Flow Rate FiO2 03/21/18 13:27 123/69 03/21/18 09:17 82 123/69 03/21/18 09:16 82 123/69 03/21/18 08:00 80 03/21/18 08:00 97.3 75 20 123/69 (87) 96 03/21/18 05:38 156/86 03/21/18 04:00 97.7 90 18 155/87 (109) 96 03/21/18 04:00 90 03/21/18 00:53 Nasal Cannula 2.0 03/21/18 00:00 98 03/20/18 23:15 98.8 100 20 164/73 100 Nasal Cannula 2.0 28 03/20/18 23:08 98.8 100 20 164/73 100 Nasal Cannula 2.0 03/20/18 21:30 98.8 100 24 190/90 100 Nasal Cannula 2.0 03/20/18 21:24 98.8 03/20/18 21:23 195/90 03/20/18 20:12 94 20 100 Nasal Cannula 2.0 28 03/20/18 20:02 97 20 99 Nasal Cannula 2.0 28 03/20/18 19:33 100 20 Simple Mask 15.0 99 03/20/18 19:33 98.8 100 24 203/97 100 Simple Mask 15.0 03/20/18 19:21 98.8 111 24 203/97 100 Simple Mask 15.0 Intake and Output 03/20/18 03/21/18 19:00 07:00 Intake Total 260 ml Balance 260 ml Intake Oral 260 ml Laboratory Tests Test 03/20/18 19:59 03/21/18 06:20 White Blood Count 8.2 K/UL (4.8-10.8) 6.0 K/UL (4.8-10.8) Red Blood Count 3.72 M/UL (4.20-5.40) L 3.18 M/UL (4.20-5.40) L Hemoglobin 12.2 G/DL (12.0-16.0) 10.4 G/DL (12.0-16.0) L Hematocrit 39.0 % (37.0-47.0) 34.1 % (37.0-47.0) L Mean Corpuscular Volume 105 FL (80-99) H 107 FL (80-99) H Mean Corpuscular Hemoglobin 32.8 PG (27.0-31.0) H 32.8 PG (27.0-31.0) H Mean Corpuscular Hemoglobin Concent 31.3 G/DL (32.0-36.0) L 30.6 G/DL (32.0-36.0) L Red Cell Distribution Width 17.2 % (11.6-14.8) H 18.2 % (11.6-14.8) H Platelet Count 241 K/UL (150-450) 203 K/UL (150-450) Mean Platelet Volume 6.1 FL (6.5-10.1) L 6.1 FL (6.5-10.1) L Neutrophils (%) (Auto) 77.1 % (45.0-75.0) H 65.9 % (45.0-75.0) Lymphocytes (%) (Auto) 7.9 % (20.0-45.0) L 10.3 % (20.0-45.0) L Monocytes (%) (Auto) 6.3 % (1.0-10.0) 7.6 % (1.0-10.0) Eosinophils (%) (Auto) 7.5 % (0.0-3.0) H 14.4 % (0.0-3.0) H Basophils (%) (Auto) 1.2 % (0.0-2.0) 1.9 % (0.0-2.0) Sodium Level 142 MMOL/L (136-145) 141 MMOL/L (136-145) Potassium Level 4.3 MMOL/L (3.5-5.1) 4.8 MMOL/L (3.5-5.1) Chloride Level 102 MMOL/L (98-107) 103 MMOL/L (98-107) Carbon Dioxide Level 33 MMOL/L (21-32) H 34 MMOL/L (21-32) H Anion Gap 7 mmol/L (5-15) 4 mmol/L (5-15) L Blood Urea Nitrogen 14 mg/dL (7-18) 20 mg/dL (7-18) H Creatinine 3.3 MG/DL (0.55-1.30) H 4.1 MG/DL (0.55-1.30) H Estimat Glomerular Filtration Rate 17.2 mL/min (>60) 13.5 mL/min (>60) Glucose Level 100 MG/DL (74-106) 119 MG/DL (74-106) H Lactic Acid Level 0.80 mmol/L (0.4-2.0) Calcium Level 8.4 MG/DL (8.5-10.1) L 8.1 MG/DL (8.5-10.1) L Total Bilirubin 0.3 MG/DL (0.2-1.0) 0.3 MG/DL (0.2-1.0) Aspartate Amino Transf (AST/SGOT) 28 U/L (15-37) 23 U/L (15-37) Alanine Aminotransferase (ALT/SGPT) 9 U/L (12-78) L 13 U/L (12-78) Alkaline Phosphatase 126 U/L (46-116) H 109 U/L (46-116) Total Creatine Kinase 90 U/L (26-308) Creatine Kinase MB 1.6 NG/ML (0.0-3.6) Creatine Kinase MB Relative Index 1.7 Troponin I 0.087 ng/mL (0.000-0.056) Total Protein 7.2 G/DL (6.4-8.2) 6.3 G/DL (6.4-8.2) L Albumin 2.4 G/DL (3.4-5.0) L 2.1 G/DL (3.4-5.0) L Globulin 4.8 g/dL 4.2 g/dL Albumin/Globulin Ratio 0.5 (1.0-2.7) L 0.5 (1.0-2.7) L Hemoglobin A1c 5.6 % (4.3-6.0) Phosphorus Level 4.9 MG/DL (2.5-4.9) Magnesium Level 2.2 MG/DL (1.8-2.4) Iron Level 39 ug/dL (50-175) L Total Iron Binding Capacity 149 ug/dL (250-450) L Percent Iron Saturation 26 % (15-50) Unsaturated Iron Binding 110 ug/dL (112-346) L Ferritin 512 NG/ML (8-388) H Triglycerides Level 41 MG/DL (30-150) Cholesterol Level 159 MG/DL (< 200) LDL Cholesterol 81 mg/dL (<100) HDL Cholesterol 71 MG/DL (40-60) H Cholesterol/HDL Ratio 2.2 (3.3-4.4) L Vitamin B12 Level 690 PG/ML (193-986) Folate 10.1 NG/ML (8.6-58.9) Microbiology Date/Time Source Procedure Growth Status 03/20/18 22:00 Rectum Received Height (Feet): 5 Height (Inches): 7.00 Weight (Pounds): 140 Medications Current Medications Medications (Trade) Dose Ordered Sig/Ranjan Route PRN Reason Start Time Stop Time Status Last Admin Dose Admin Acetaminophen (Tylenol) 650 mg Q6HR PRN ORAL Mild Pain (Pain Scale 1-3) 03/21/18 00:30 04/20/18 00:29 Albuterol/ Ipratropium (Albuterol/ Ipratropium) 3 ml Q4H PRN HHN Shortness of Breath 03/21/18 00:30 03/26/18 00:29 Amlodipine Besylate (Norvasc) 10 mg DAILY ORAL 03/21/18 09:00 04/20/18 08:59 03/21/18 09:17 Aspirin (ASA) 325 mg DAILY ORAL 03/21/18 09:00 04/20/18 08:59 03/21/18 09:16 Calcium Acetate (Phoslo) 1,334 mg QHS ORAL 03/21/18 21:00 04/20/18 20:59 Clonazepam (KlonoPIN) 0.25 mg QHS ORAL 03/21/18 21:00 03/28/18 20:59 Clonidine HCl (Catapres tab) 0.2 mg Q8HR ORAL 03/21/18 14:00 04/20/18 05:59 03/21/18 13:27 Dextrose (Dextrose 50%) 25 ml Q30M PRN IV Hypoglycemia 03/21/18 01:30 04/20/18 01:29 Dextrose (Dextrose 50%) 50 ml Q30M PRN IV Hypoglycemia 03/21/18 01:30 04/20/18 01:29 Diphenhydramine HCl (Benadryl) 25 mg Q8HR PRN ORAL Itching 03/21/18 00:30 04/20/18 00:29 03/21/18 05:38 Diphenoxylate HCl/ Atropine (Lomotil) 5 mg DAILY PRN ORAL Diarrhea 03/21/18 00:30 04/20/18 00:29 Docusate Sodium (Colace) 100 mg THREE TIMES A DAY ORAL 03/21/18 13:00 04/20/18 12:59 03/21/18 13:28 Doxazosin Mesylate (Cardura) 4 mg QHS ORAL 03/21/18 21:00 04/20/18 20:59 Hydralazine HCl (Apresoline) 25 mg Q4H PRN ORAL bp over 160 syst 03/21/18 11:30 04/20/18 11:29 Ibuprofen (Motrin) 600 mg Q6H PRN ORAL For Pain 03/21/18 02:00 04/20/18 01:59 Insulin Aspart (NovoLOG) BEFORE MEALS AND HS SUBQ 03/21/18 06:30 04/20/18 06:29 Labetalol HCl (Normodyne) 600 mg BID@0900,2100 ORAL 03/21/18 09:00 04/20/18 08:59 03/21/18 09:16 Levothyroxine Sodium (Synthroid) 88 mcg DAILY@0630 ORAL 03/21/18 06:30 04/20/18 06:29 03/21/18 05:38 Mirtazapine (Remeron) 15 mg BEDTIME ORAL 03/21/18 21:00 04/20/18 20:59 Morphine Sulfate (Morphine Sulfate) 2 mg Q4H PRN IVP Breakthrough Pain 03/21/18 12:30 03/28/18 12:29 Ondansetron HCl (Zofran ODT) 4 mg Q4HR PRN ORAL Nausea & Vomiting 03/21/18 00:30 04/20/18 00:29 Pantoprazole (Protonix) 40 mg BID ORAL 03/21/18 18:00 04/20/18 08:59 Pregabalin (Lyrica) 75 mg BID ORAL 03/21/18 09:00 04/20/18 08:59 03/21/18 09:17 Quetiapine Fumarate (SEROquel) 50 mg Q12HR ORAL 03/21/18 09:00 04/20/18 08:59 03/21/18 09:17 Sevelamer Carbonate (Renvela) 2,400 mg TIPC ORAL 03/21/18 09:00 04/20/18 08:59 03/21/18 13:28 Tramadol HCl (Ultram) 50 mg DAILY PRN ORAL pain 03/21/18 02:00 03/28/18 01:59 03/21/18 02:13 Trazodone HCl (Desyrel) 100 mg BEDTIME ORAL 03/21/18 21:00 04/20/18 20:59 Vitamin B Complex/ Vit C/Folic Acid (Nephrovite) 1 tab DAILY ORAL 03/21/18 09:00 04/20/18 08:59 03/21/18 09:16 Zolpidem Tartrate (Ambien) 5 mg BEDTIME PRN ORAL Insomnia 03/21/18 00:30 03/28/18 00:29 03/21/18 02:13 Assessment/Plan Problem List: (1) ACS (acute coronary syndrome) ICD Codes: I24.9 - Acute ischemic heart disease, unspecified SNOMED: 359727992 (2) ESRD (end stage renal disease) ICD Codes: N18.6 - End stage renal disease SNOMED: 42408872 (3) Cirrhosis of liver ICD Codes: K74.60 - Unspecified cirrhosis of liver SNOMED: 50924611 (4) HTN (hypertension) ICD Codes: I10 - Essential (primary) hypertension SNOMED: 16069662 (5) Hypothyroidism ICD Codes: E03.9 - Hypothyroidism, unspecified SNOMED: 65113700 (6) Diabetes ICD Codes: E11.9 - Type 2 diabetes mellitus without complications SNOMED: 63011427 (7) H/O ETOH abuse ICD Codes: Z87.898 - Personal history of other specified conditions SNOMED: 724251925 Assessment/Plan serial ekg, troponin, echo cardiology to see sliding scale, diabetic diet symptomatic treatment HD by supervisor landscape Bailee Shaw MD Mar 21, 2018 13:41
--- NOTE | 2018-03-21 14:07 | NUR ---
NURSE NOTES: Contacted Dr. Reich regarding DVT prophylaxis for patient. Will await call back
--- NOTE | 2018-03-21 15:08 | Cardiology Report ---
APPROVED REPORT EKG Measurement Heart [id number] Sinus tachycardia Cannot rule out Anterior infarct, age undetermined Abnormal ECG
[2018-03-21 16:00] VITALS: BP 75/54
--- NOTE | 2018-03-21 17:50 | History & Physical ---
History and Physical History & Physicial Dictated for Int Med-Dr Albright no. [id number]. Adair Huerta MD Mar 21, 2018 17:50
--- NOTE | 2018-03-21 18:57 | NUR ---
CASE MANAGEMENT: REVIEW 63/F [facility] FROM [facility] CC: RESP DISTRESS SI: CHEST PAIN . ESRD ON HD T 98.8 HR 111 RR 24 BP 203/97 SAT 100% SIMPLE MASK 15.0 TROPONIN I 0.087 IS: MORPHINE IV X1 CLONIDINE PO X1 ALBUTEROL HHN X1 PATIENT ADMITTED TO TELEMETRY UNIT 03/20/2018 DCP: PATIENT IS FROM HOME
--- NOTE | 2018-03-21 19:14 | NUR ---
HAND-OFF: Report given to Mike Ruiz. Plan of care endorsed.
--- NOTE | 2018-03-21 19:30 | NUR ---
NURSE NOTES: Received report from JEAN CARLOS Hale. Pt is resting in bed. In no acute distress. IV line intact and patent. Bed in lowest position, call light within reach. Will continue plan of care.
[2018-03-21 20:00] VITALS: BP 105/55
--- NOTE | 2018-03-21 20:15 | History and Physical Report ---
DATE OF ADMISSION: 03/20/2018 CHIEF COMPLAINT: The patient is a 63-year-old female, who presents with a chief complaint of chest pain and shortness of breath. HISTORY OF PRESENT ILLNESS: The patient states she has been experiencing shortness of breath "for few days." The patient is on hemodialysis every Sunday, Sunday, and Sunday. The patient was in dialysis yesterday, 03/20/2018. The patient became extremely short of breath. The patient was also experiencing chest pain. The patient was having difficulty walking. EMS was called. The patient was transported to [facility]. The patient was admitted for shortness of breath and chest pain. REVIEW OF SYSTEMS: CONSTITUTIONAL: The patient denies weight loss or weight gain. The patient denies fevers or chills. HEENT: The patient denies ear or throat pain. The patient denies headache. CARDIOVASCULAR: The patient complains of chest pain as above. The patient denies palpitations. CHEST: The patient complains of shortness of breath as above. The patient denies wheezes. ABDOMINAL: The patient denies nausea, vomiting, diarrhea, or constipation. GENITOURINARY: The patient denies dysuria or increased frequency of urination. NEUROMUSCULAR: The patient denies seizures or generalized weakness. PAST MEDICAL HISTORY: Significant for, 1. End-stage renal disease, on hemodialysis every Sunday, Sunday, and Sunday. The patient has started dialysis in 2011. 2. Diabetes type 2. 3. Diabetic peripheral neuropathy. 4. Chronic obstructive pulmonary disease. 5. Cirrhosis of the liver. 6. Ascites. PAST SURGICAL HISTORY: Significant for, 1. Arteriovenous graft for dialysis x2. Current AV graft is on the right arm. 2. Lumbar discectomy. CURRENT MEDICATIONS: 1. Clonidine 0.2 mg p.o. 4 times daily p.r.n. 2. Seroquel 50 mg p.o. twice daily. 3. Trazodone 50 mg p.o. at bedtime. 4. Tylenol #4 one tablet p.o. q.6 hours p.r.n. 5. Doxazosin 4 mg p.o. at bedtime. 6. Albuterol metered-dose inhaler two puffs p.o. 4 times daily p.r.n. 7. DuoNeb nebulized q.4 hours p.r.n. 8. Zofran 4 mg p.o. q.4 hours p.r.n. 9. Labetalol 300 mg 2 tablets p.o. twice daily. 10. Ambien 5 mg p.o. at bedtime. 11. Levoxyl 0.088 mg 1 tablet p.o. daily. ALLERGIES: No known drug allergies. SOCIAL HISTORY: The patient is . The patient lives alone. The patient denies alcohol use. The patient admits to tobacco use of one-quarter pack per day. PHYSICAL EXAMINATION: VITAL SIGNS: Temperature 97.7, respirations 20, pulse 73, and blood pressure 119/71. GENERAL: The patient is a well-developed and well-nourished female, in no apparent distress. HEENT: Eyes, pupils are equal and responsive to light and accommodation. Extraocular movements are intact. NECK: Supple without lymphadenopathy. CHEST: Lungs are clear to auscultation bilaterally without wheezes or rales. CARDIOVASCULAR: Regular rhythm and rate. S1 and S2 are normal without murmurs, rubs, or gallops. ABDOMEN: Soft, nontender, and nondistended. Positive bowel sounds. No evidence of hepatosplenomegaly. Currently, no rebound or guarding noted. EXTREMITIES: Negative for clubbing, cyanosis, or edema. RECTAL/GENITAL: Refused. NEUROLOGIC: Cranial nerves II through XII are grossly intact without focal deficits. Motor strength is 5/5 bilaterally. Deep tendon reflexes are 2+ plantar. LABORATORY STUDIES: WBC 8.2, hemoglobin 12.2, hematocrit 39.0, and platelets 241,000. Sodium 142, potassium 4.3, chloride 102, CO2 33, BUN 14, creatinine 3.3, and glucose 100. IMAGING: A chest x-ray show bilateral diffuse interstitial and airspace infiltrates. ASSESSMENT: This is a 63-year-old female. 1. Pneumonia. 2. Shortness of breath. 3. Chest pain. 4. Ataxia. 5. End-stage renal disease. 6. Diabetes type 2. 7. Diabetic peripheral neuropathy. 8. Chronic obstructive pulmonary disease. 9. Cirrhosis of the liver. 10. Ascites. TREATMENT: 1. Pneumonia. A Pulmonary consultation has been obtained with Dr. Bailee Shaw. We will follow recommendations of Pulmonary. 2. Chest pain. This may be secondary to pneumonia versus acute coronary syndrome. A Cardiology consultation has been obtained with Dr. Dillard. 3. Ataxia. 4. End-stage renal disease. A Nephrology consultation has been obtained with Dr. Sargent. The patient undergoes dialysis every Sunday, Sunday, and Sunday. Last dialysis was 03/20/2018, however, this was aborted secondary to chest pain as above. 5. Diabetic peripheral neuropathy. 6. Chronic obstructive pulmonary disease. As above, a Pulmonary consultation has been obtained with Dr. Bailee Shaw. Continue DuoNeb as above. 7. Cirrhosis of the liver/ascites. A Gastroenterology consultation has been obtained with Dr. Ayush Reyes. Adair Huerta M.D. DR: THA JOB#: [id number] CC:
--- NOTE | 2018-03-21 20:21 | Cardiology Progress Note ---
Assessment/Plan Assessment/Plan chest pain tenderness to touch esrd dm pain syndrome reepat trop ekg echo doubt acs min trop abn of ? sig in light of renal failure [id number] Objective Last 24 Hour Vital Signs Date Time Temp Pulse Resp B/P (MAP) Pulse Ox O2 Delivery O2 Flow Rate FiO2 03/21/18 17:58 97.3 03/21/18 16:00 48 03/21/18 16:00 97.3 75 23 75/54 (61) 92 03/21/18 13:27 123/69 03/21/18 12:00 97.7 73 20 119/71 (87) 96 03/21/18 09:17 82 123/69 03/21/18 09:16 82 123/69 03/21/18 09:00 Nasal Cannula 2.0 03/21/18 08:00 80 03/21/18 08:00 97.3 75 20 123/69 (87) 96 03/21/18 05:38 156/86 03/21/18 04:00 97.7 90 18 155/87 (109) 96 03/21/18 04:00 90 03/21/18 00:53 Nasal Cannula 2.0 03/21/18 00:00 98 03/20/18 23:15 98.8 100 20 164/73 100 Nasal Cannula 2.0 28 03/20/18 23:08 98.8 100 20 164/73 100 Nasal Cannula 2.0 03/20/18 21:30 98.8 100 24 190/90 100 Nasal Cannula 2.0 03/20/18 21:24 98.8 03/20/18 21:23 195/90 Intake and Output 03/20/18 03/21/18 19:00 07:00 Intake Total 260 ml Balance 260 ml Intake Oral 260 ml Laboratory Tests Test 03/21/18 06:20 White Blood Count 6.0 K/UL (4.8-10.8) Red Blood Count 3.18 M/UL (4.20-5.40) L Hemoglobin 10.4 G/DL (12.0-16.0) L Hematocrit 34.1 % (37.0-47.0) L Mean Corpuscular Volume 107 FL (80-99) H Mean Corpuscular Hemoglobin 32.8 PG (27.0-31.0) H Mean Corpuscular Hemoglobin Concent 30.6 G/DL (32.0-36.0) L Red Cell Distribution Width 18.2 % (11.6-14.8) H Platelet Count 203 K/UL (150-450) Mean Platelet Volume 6.1 FL (6.5-10.1) L Neutrophils (%) (Auto) 65.9 % (45.0-75.0) Lymphocytes (%) (Auto) 10.3 % (20.0-45.0) L Monocytes (%) (Auto) 7.6 % (1.0-10.0) Eosinophils (%) (Auto) 14.4 % (0.0-3.0) H Basophils (%) (Auto) 1.9 % (0.0-2.0) Sodium Level 141 MMOL/L (136-145) Potassium Level 4.8 MMOL/L (3.5-5.1) Chloride Level 103 MMOL/L (98-107) Carbon Dioxide Level 34 MMOL/L (21-32) H Anion Gap 4 mmol/L (5-15) L Blood Urea Nitrogen 20 mg/dL (7-18) H Creatinine 4.1 MG/DL (0.55-1.30) H Estimat Glomerular Filtration Rate 13.5 mL/min (>60) Glucose Level 119 MG/DL (74-106) H Hemoglobin A1c 5.6 % (4.3-6.0) Calcium Level 8.1 MG/DL (8.5-10.1) L Phosphorus Level 4.9 MG/DL (2.5-4.9) Magnesium Level 2.2 MG/DL (1.8-2.4) Iron Level 39 ug/dL (50-175) L Total Iron Binding Capacity 149 ug/dL (250-450) L Percent Iron Saturation 26 % (15-50) Unsaturated Iron Binding 110 ug/dL (112-346) L Ferritin 512 NG/ML (8-388) H Total Bilirubin 0.3 MG/DL (0.2-1.0) Aspartate Amino Transf (AST/SGOT) 23 U/L (15-37) Alanine Aminotransferase (ALT/SGPT) 13 U/L (12-78) Alkaline Phosphatase 109 U/L (46-116) Total Protein 6.3 G/DL (6.4-8.2) L Albumin 2.1 G/DL (3.4-5.0) L Globulin 4.2 g/dL Albumin/Globulin Ratio 0.5 (1.0-2.7) L Triglycerides Level 41 MG/DL (30-150) Cholesterol Level 159 MG/DL (< 200) LDL Cholesterol 81 mg/dL (<100) HDL Cholesterol 71 MG/DL (40-60) H Cholesterol/HDL Ratio 2.2 (3.3-4.4) L Vitamin B12 Level 690 PG/ML (193-986) Folate 10.1 NG/ML (8.6-58.9) Microbiology Date/Time Source Procedure Growth Status 03/20/18 22:00 Rectum Received Kevyn Dillard MD Mar 21, 2018 20:21
--- NOTE | 2018-03-21 20:37 | Consultation ---
History of Present Illness General Chief Complaint: Dyspnea/Respdistress Present Illness HPI 63-year-old female, who presents with a chief complaint of chest pain and shortness of breath. the pt has hx of depression. the pt stated that she takes seroquel and trazadone at home. the pt is withdrawn and anhedonic. the pt has poor insight. the pt is sleeping most of the day Allergies: Coded Allergies: No Known Allergies (Unverified , 09/20/15) Medication History Discontinued Medications Calcitriol (Rocaltrol), 0.25 MCG PO, (Reported) Discontinued Reason: MD discontinued med Calcium Carbonate/Vitamin D3 (Calcium 600 + Vit D 400 Tablet), 1 EACH PO, ( Reported) Discontinued Reason: MD discontinued med Cinacalcet Hcl (Sensipar), 90 MG PO DAILY, (Reported) Discontinued Reason: MD discontinued med Clonidine Hcl* (Catapres*), 0.1 MG ORAL EVERY 6 HOURS, (Reported) Discontinued Reason: Medication dose changed Docusate Sodium* (Docusil*), 100 MG ORAL Q12HR, (Reported) Discontinued Reason: MD discontinued med Epoetin Vikas (Procrit), 10,000 UNITS SUBQ MON-[id number] Discontinued Reason: MD discontinued med Patient History History Provided By: Patient, Medical Record, PMD Healthcare decision maker Resuscitation status Full Code Advanced Directive on File No Past Medical/Surgical History Past Medical/Surgical History: (1) Atypical chest pain (2) COPD (chronic obstructive pulmonary disease) (3) Shortness of breath (4) Ataxia (5) Diabetes mellitus, type II (6) ESRD (end stage renal disease) on dialysis (7) Diabetic peripheral neuropathy (8) Pulmonary edema (9) Elevated tumor markers (10) Diabetes (11) Hypothyroidism (12) Thrombocytopenia (13) GERD (gastroesophageal reflux disease) (14) HTN (hypertension) (15) H/O ETOH abuse (16) Malfunction of arteriovenous dialysis fistula (17) Deep venous thrombosis of axillary vein (18) Anemia (19) Ascites (20) CHF (congestive heart failure) (21) Cirrhosis of liver (22) ESRD (end stage renal disease) (23) ACS (acute coronary syndrome) Review of Systems Psychiatric: Reports: prior hx, anxiety, depressed feelings, emotional problems Physical Exam General Appearance: no apparent distress, alert, overweight Neurologic: oriented x 3, responsive, depressed affect Last 24 Hour Vital Signs Date Time Temp Pulse Resp B/P (MAP) Pulse Ox O2 Delivery O2 Flow Rate FiO2 03/21/18 17:58 97.3 03/21/18 16:00 48 03/21/18 16:00 97.3 75 23 75/54 (61) 92 03/21/18 13:27 123/69 03/21/18 12:00 97.7 73 20 119/71 (87) 96 03/21/18 09:17 82 123/69 03/21/18 09:16 82 123/69 03/21/18 09:00 Nasal Cannula 2.0 03/21/18 08:00 80 03/21/18 08:00 97.3 75 20 123/69 (87) 96 03/21/18 05:38 156/86 03/21/18 04:00 97.7 90 18 155/87 (109) 96 03/21/18 04:00 90 03/21/18 00:53 Nasal Cannula 2.0 03/21/18 00:00 98 03/20/18 23:15 98.8 100 20 164/73 100 Nasal Cannula 2.0 28 03/20/18 23:08 98.8 100 20 164/73 100 Nasal Cannula 2.0 03/20/18 21:30 98.8 100 24 190/90 100 Nasal Cannula 2.0 03/20/18 21:24 98.8 03/20/18 21:23 195/90 Intake and Output 03/20/18 03/21/18 19:00 07:00 Intake Total 260 ml Balance 260 ml Intake Oral 260 ml Laboratory Tests Test 03/21/18 06:20 White Blood Count 6.0 K/UL (4.8-10.8) Red Blood Count 3.18 M/UL (4.20-5.40) L Hemoglobin 10.4 G/DL (12.0-16.0) L Hematocrit 34.1 % (37.0-47.0) L Mean Corpuscular Volume 107 FL (80-99) H Mean Corpuscular Hemoglobin 32.8 PG (27.0-31.0) H Mean Corpuscular Hemoglobin Concent 30.6 G/DL (32.0-36.0) L Red Cell Distribution Width 18.2 % (11.6-14.8) H Platelet Count 203 K/UL (150-450) Mean Platelet Volume 6.1 FL (6.5-10.1) L Neutrophils (%) (Auto) 65.9 % (45.0-75.0) Lymphocytes (%) (Auto) 10.3 % (20.0-45.0) L Monocytes (%) (Auto) 7.6 % (1.0-10.0) Eosinophils (%) (Auto) 14.4 % (0.0-3.0) H Basophils (%) (Auto) 1.9 % (0.0-2.0) Sodium Level 141 MMOL/L (136-145) Potassium Level 4.8 MMOL/L (3.5-5.1) Chloride Level 103 MMOL/L (98-107) Carbon Dioxide Level 34 MMOL/L (21-32) H Anion Gap 4 mmol/L (5-15) L Blood Urea Nitrogen 20 mg/dL (7-18) H Creatinine 4.1 MG/DL (0.55-1.30) H Estimat Glomerular Filtration Rate 13.5 mL/min (>60) Glucose Level 119 MG/DL (74-106) H Hemoglobin A1c 5.6 % (4.3-6.0) Calcium Level 8.1 MG/DL (8.5-10.1) L Phosphorus Level 4.9 MG/DL (2.5-4.9) Magnesium Level 2.2 MG/DL (1.8-2.4) Iron Level 39 ug/dL (50-175) L Total Iron Binding Capacity 149 ug/dL (250-450) L Percent Iron Saturation 26 % (15-50) Unsaturated Iron Binding 110 ug/dL (112-346) L Ferritin 512 NG/ML (8-388) H Total Bilirubin 0.3 MG/DL (0.2-1.0) Aspartate Amino Transf (AST/SGOT) 23 U/L (15-37) Alanine Aminotransferase (ALT/SGPT) 13 U/L (12-78) Alkaline Phosphatase 109 U/L (46-116) Total Protein 6.3 G/DL (6.4-8.2) L Albumin 2.1 G/DL (3.4-5.0) L Globulin 4.2 g/dL Albumin/Globulin Ratio 0.5 (1.0-2.7) L Triglycerides Level 41 MG/DL (30-150) Cholesterol Level 159 MG/DL (< 200) LDL Cholesterol 81 mg/dL (<100) HDL Cholesterol 71 MG/DL (40-60) H Cholesterol/HDL Ratio 2.2 (3.3-4.4) L Vitamin B12 Level 690 PG/ML (193-986) Folate 10.1 NG/ML (8.6-58.9) Microbiology Date/Time Source Procedure Growth Status 03/20/18 22:00 Rectum Received Height (Feet): 5 Height (Inches): 7.00 Weight (Pounds): 140 Medications Current Medications Medications (Trade) Dose Ordered Sig/Ranjan Route PRN Reason Start Time Stop Time Status Last Admin Dose Admin Acetaminophen (Tylenol) 650 mg Q6HR PRN ORAL Mild Pain (Pain Scale 1-3) 03/21/18 00:30 04/20/18 00:29 Albuterol/ Ipratropium (Albuterol/ Ipratropium) 3 ml Q4H PRN HHN Shortness of Breath 03/21/18 00:30 03/26/18 00:29 Amlodipine Besylate (Norvasc) 10 mg DAILY ORAL 03/21/18 09:00 04/20/18 08:59 03/21/18 09:17 Aspirin (ASA) 325 mg DAILY ORAL 03/21/18 09:00 04/20/18 08:59 03/21/18 09:16 Calcium Acetate (Phoslo) 1,334 mg QHS ORAL 03/21/18 21:00 04/20/18 20:59 Clonazepam (KlonoPIN) 0.25 mg QHS ORAL 03/21/18 21:00 03/28/18 20:59 Clonidine HCl (Catapres tab) 0.2 mg Q8HR ORAL 03/21/18 14:00 04/20/18 05:59 03/21/18 13:27 Dextrose (Dextrose 50%) 25 ml Q30M PRN IV Hypoglycemia 03/21/18 01:30 04/20/18 01:29 Dextrose (Dextrose 50%) 50 ml Q30M PRN IV Hypoglycemia 03/21/18 01:30 04/20/18 01:29 Diphenhydramine HCl (Benadryl) 25 mg Q8HR PRN ORAL Itching 03/21/18 00:30 04/20/18 00:29 03/21/18 05:38 Diphenoxylate HCl/ Atropine (Lomotil) 5 mg DAILY PRN ORAL Diarrhea 03/21/18 00:30 04/20/18 00:29 Docusate Sodium (Colace) 100 mg THREE TIMES A DAY ORAL 03/21/18 13:00 04/20/18 12:59 03/21/18 17:09 Doxazosin Mesylate (Cardura) 4 mg QHS ORAL 03/21/18 21:00 04/20/18 20:59 Hydralazine HCl (Apresoline) 25 mg Q4H PRN ORAL bp over 160 syst 03/21/18 11:30 04/20/18 11:29 Ibuprofen (Motrin) 600 mg Q6H PRN ORAL For Pain 03/21/18 02:00 04/20/18 01:59 Insulin Aspart (NovoLOG) BEFORE MEALS AND HS SUBQ 03/21/18 06:30 04/20/18 06:29 Labetalol HCl (Normodyne) 600 mg BID@0900,2100 ORAL 03/21/18 09:00 04/20/18 08:59 03/21/18 09:16 Levothyroxine Sodium (Synthroid) 88 mcg DAILY@0630 ORAL 03/21/18 06:30 04/20/18 06:29 03/21/18 05:38 Mirtazapine (Remeron) 15 mg BEDTIME ORAL 03/21/18 21:00 04/20/18 20:59 Morphine Sulfate (Morphine Sulfate) 2 mg Q4H PRN IVP Breakthrough Pain 03/21/18 12:30 03/28/18 12:29 Ondansetron HCl (Zofran ODT) 4 mg Q4HR PRN ORAL Nausea & Vomiting 03/21/18 00:30 04/20/18 00:29 Pantoprazole (Protonix) 40 mg BID ORAL 03/21/18 18:00 04/20/18 08:59 03/21/18 17:09 Pregabalin (Lyrica) 75 mg BID ORAL 03/21/18 09:00 04/20/18 08:59 03/21/18 17:10 Quetiapine Fumarate (SEROquel) 50 mg Q12HR ORAL 03/21/18 09:00 04/20/18 08:59 03/21/18 09:17 Sevelamer Carbonate (Renvela) 2,400 mg TIPC ORAL 03/21/18 09:00 04/20/18 08:59 03/21/18 17:09 Tramadol HCl (Ultram) 50 mg DAILY PRN ORAL pain 03/21/18 02:00 03/28/18 01:59 03/21/18 02:13 Trazodone HCl (Desyrel) 100 mg BEDTIME ORAL 03/21/18 21:00 04/20/18 20:59 Vitamin B Complex/ Vit C/Folic Acid (Nephrovite) 1 tab DAILY ORAL 03/21/18 09:00 04/20/18 08:59 03/21/18 09:16 Zolpidem Tartrate (Ambien) 5 mg BEDTIME PRN ORAL Insomnia 03/21/18 00:30 03/28/18 00:29 03/21/18 02:13 Assessment/Plan Problem List: (1) MDD (major depressive disorder), recurrent episode ICD Codes: F33.9 - Major depressive disorder, recurrent, unspecified SNOMED: 661644156 (2) H/O ETOH abuse ICD Codes: Z87.898 - Personal history of other specified conditions SNOMED: 651832424 Status: stable Assessment/Plan trazadone 50mg po qhs seroquel 25ng po bid provided ro/Eric Rao MD Mar 21, 2018 20:37
[2018-03-21] MEDS ORDERED: Docusate 250mg cap ORAL SCH (21:00)
[2018-03-21] MEDS: clonazePAM 0.5mg tab ORAL SCH (21:30)
[2018-03-21] MEDS: Doxazosin 4mg tab ORAL SCH (21:31)
[2018-03-21] MEDS: Calcium Acetate 667mg Tab ORAL SCH (21:31)
[2018-03-21] MEDS: TraZODone 100mg tab ORAL SCH (21:31)
--- NOTE | 2018-03-21 22:00 | Consultation ---
DATE OF CONSULTATION: 03/21/2018 CARDIOLOGY CONSULTATION CONSULTING PHYSICIAN: Kevyn Dillard M.D. REFERRING PHYSICIAN: Adair Huerta M.D. REASON FOR REFERRAL: Chest pain. HISTORY OF PRESENT ILLNESS: This is a 63-year-old female, who has a history of multiple medical problems . The patient has presented to the hospital. Apparently, she developed some pain across the chest while getting dialysis. The pain was dull sensation constantly present getting worse with coughing or taking a deep breath or twisting or turning and also was having pain in both shoulders. The pain she has had before apparently previously as well, but this was more severe than her usual. She has had shortness of breath associated with the pain. The pain lasted approximately 45 minutes, but still present when the chest wall is touched. There is no PND. Uses two pillows. She does have dizziness or lightheadedness on standing. She has no palpitations. She is really not significantly ambulatory. She has difficulty walking around. PAST MEDICAL HISTORY: Extensive and delineated in the chart. I have seen her before back in 2017, but her most recent discharge summary from May of 2016 indicates that she has had a history of abnormal liver function test, thrombocytopenia, transaminitis, anemia, diabetes, gastritis, hypothyroidism, cirrhosis of the liver, end-stage renal disease, gastroesophageal reflux disease, alcohol abuse, hypertension, congestive heart failure, chronic pain, anemia of chronic disease, and ascites. When I had seen her back in earlier year, she also was noted to have diastolic dysfunction and alcohol abuse previously as well in the chart. She has a history of diabetes mellitus, polysubstance abuse, hyperkalemia, severe deconditioning, malnutrition, and apparently, she has had a previous ischemia evaluation that was negative. ALLERGIES: She is not allergic to any medications. SOCIAL HISTORY: She still smokes 2 cigarettes per day. Denies any drinking of alcoholic beverages. Denies any drug use at the present time. REVIEW OF SYSTEMS: GASTROINTESTINAL: She has constipation. No bloody or black stool. GENITOURINARY: She makes some urine although she has not made any urine today. PULMONARY: She has coughing and wheezing. CONSTITUTIONAL: No fevers, chills, or night sweats. PHYSICAL EXAMINATION: GENERAL: Shows to be elderly middle-aged female, who looks older than her stated age. She is drowsy, arousable, and responsive. NECK: Supple. LUNGS: Appear relatively clear to auscultation and percussion. CARDIAC: Regular rate and rhythm. No heaves or thrills. Chest wall is exquisitely tender and seems to reproduce the patient's pain that she has been having. ABDOMEN: Soft. There is some tenderness. No guarding or rigidity. EXTREMITIES: There is no edema. NEUROLOGICAL: She is arousable and responsive and communicative, but falls asleep easily. LABORATORY AND DIAGNOSTIC DATA: White count of 6, hemoglobin 10.5, and a platelet count of 203,000. Sodium is 141, potassium 4.8, chloride 103, bicarb 34, BUN of 20, creatinine of 4.1, and glucose of 119. A1c of 5.6. Calcium is 8.1. Iron is 39 with 26% saturation. Her troponin 0.087 today. Total cholesterol 159, LDL of 81, and HDL of 71. Vitamin B12 690. Folic acid 10.1. INR is 1.2. IMAGING: She did have a chest x-ray that was performed shows bilateral interstitial and airspace infiltrates versus edema with small bilateral pleural effusions. She has had an echocardiogram, preliminary report, which indicates normal left ventricular systolic function. This report is yet to be finalized. Her electrocardiogram had been performed. Unfortunately, I am not able to identify the EKG anywhere in the chart for me to review. However, the EKG performed by the paramedics, on the transfer shows sinus rhythm with no significant ST or T-wave abnormalities. ASSESSMENT AND PLAN: 1. Chest pain likely musculoskeletal chest wall syndrome. 2. End-stage renal disease, on hemodialysis. 3. History of cirrhosis. 4. History of tobacco use disorder. 5. History of diastolic heart failure. 6. Diabetes mellitus. 7. Anemia of chronic disease. PLAN: This patient was seen in cardiac consultation. The patient's chest wall is particularly sensitive to palpation. She seems to think this is the same pain that she has been having since yesterday. She has had this pain before. Her cardiac enzymes are minimally abnormal, a questionable significance in light of the fact that she has end-stage renal disease, on hemodialysis. Those values will be repeated. An echocardiogram may have been done although I am not able to pull down the study to view. There is a preliminary report in the chart. She should have further cardiac enzymes checked. She has had a perfusion imaging in 2016, at which time, was negative for ischemia. Depending on the results of her cardiac enzymes, we will further plan further evaluation. Kevyn Dillard M.D. DR: KAPIL JOB#: [id number] CC:
[2018-03-22] VITALS: BP 95/59
[2018-03-22 04:00] VITALS: BP 107/56
[2018-03-22] MEDS: cloNIDine 0.2mg Tab ORAL SCH ×2 (06:00→13:56)
[2018-03-22] MEDS: NovoLOG Insulin Flexpen SUBQ SCH ×4 (06:30→21:00)
--- NOTE | 2018-03-22 07:20 | NUR ---
HAND-OFF: Report given to JEAN CARLOS Cohen.
--- NOTE | 2018-03-22 07:21 | NUR ---
NURSE NOTES: Received report from JEAN CARLOS Ruiz. Patient is resting in bed, sleeping. No signs and symptoms of acute distress at this time. Patient in PRN 2 lit Nasal Cannula. Bed in lowest position, side rails up x2, call light and bed side table within reach. Will continue to monitor and follow the plan of care.
[2018-03-22 08:00] VITALS: BP 109/63
[2018-03-22 08:32] LABS: BASOPHILS % (AUTO) 2.6 % (0.0-2.0); HEMOGLOBIN 11.1 G/DL (12.0-16.0); MEAN CORPUSCULAR VOLUME 107 FL (80-99); MONOCYTES % (AUTO) 7.6 % (1.0-10.0); NEUTROPHILS % (AUTO) 55.8 % (45.0-75.0); PLATELET COUNT 222 K/UL (150-450); RED BLOOD COUNT 3.36 M/UL (4.20-5.40); RED CELL DISTRIBUTION WIDTH 18.5 % (11.6-14.8); WHITE BLOOD COUNT 4.9 K/UL (4.8-10.8)
[2018-03-22] MEDS: Labetalol 200mg tab ORAL SCH ×2 (09:00→21:00)
--- NOTE | 2018-03-22 09:08 | Cardiology Report ---
APPROVED REPORT EXAM: Two-dimensional and M-mode echocardiogram with Doppler and color Doppler. INDICATION Congestive Heart Failure M-Mode DIMENSIONS IVSd1.0 (0.7-1.1cm)Left Atrium (MM)3.0 (1.6-4.0cm) LVDd5.0 (3.5-5.6cm)Aortic Root3.1 (2.0-3.7cm) PWd0.9 (0.7-1.1cm)Aortic Cusp Exc.1.6 (1.5-2.0cm) IVSs1.5 cm LVDs3.4 (2.5-4.0cm) PWs1.1 cm Normal left ventricular chamber size, systolic function and wall motion . Left ventricular ejection fraction estimated to be 55-60% Mild left ventricular hypertrophy by 2-D. Small posterior pericardial effusion . Mild left atrial enlargement . Right cardiac chamber sizes are within normal limits. Focal aortic valve sclerosis with adequate cusp excursion. Thickened mitral valve leaflets with normal cusp excursion. Mitral annulus and aortic root calcification. Pulmonic valve not well visualized. IVC at normal size with physiologic collapse . A color flow and spectral Doppler study was performed and revealed: Mild aortic insufficiency . Normal left ventricular diastolic function . Moderate mitral regurgitation. Moderate tricuspid regurgitation. Tricuspid systolic velocities suggests peak right ventricular systolic pressure of 53mmHg,consistent with moderate pulmonary hypertension . Mild pulmonic regurgitation.
[2018-03-22 09:09] LABS: ALANINE AMINOTRANSFERASE 12 U/L (12-78); ALBUMIN 2.2 G/DL (3.4-5.0); ALBUMIN/GLOBULIN RATIO 0.6 (1.0-2.7); ALKALINE PHOSPHATASE 107 U/L (46-116); ANION GAP 8 mmol/L (5-15); ASPARTATE AMINO TRANSFERASE 22 U/L (15-37); BILIRUBIN,TOTAL 0.4 MG/DL (0.2-1.0); BLOOD UREA NITROGEN 29 mg/dL (7-18); CALCIUM 8.1 MG/DL (8.5-10.1); CARBON DIOXIDE 31 MMOL/L (21-32); CHLORIDE 102 MMOL/L (98-107); CREATININE 5.3 MG/DL (0.55-1.30); POTASSIUM 5.2 MMOL/L (3.5-5.1); SODIUM 141 MMOL/L (136-145)
[2018-03-22] MEDS: Nephrovite tab (Rena-Vite) ORAL SCH (09:33)
[2018-03-22] MEDS: Lyrica 75mg cap ORAL SCH ×2 (09:33→17:58)
[2018-03-22] MEDS: Docusate 100mg cap ORAL SCH ×3 (09:35→17:58)
[2018-03-22 12:00] VITALS: BP 107/62
--- NOTE | 2018-03-22 12:17 | Pulmonology Progress Note ---
Assessment/Plan Problems: (1) ACS (acute coronary syndrome) (2) ESRD (end stage renal disease) (3) Cirrhosis of liver (4) HTN (hypertension) (5) Hypothyroidism (6) Diabetes (7) H/O ETOH abuse Assessment/Plan cardio note appreciated. troponin negative symptomatic treatment HD by nephrology respiratory treatment pain management Subjective ROS Limited/Unobtainable: No Respiratory: Reports: no symptoms Allergies: Coded Allergies: No Known Allergies (Unverified , 09/20/15) Objective Last 24 Hour Vital Signs Date Time Temp Pulse Resp B/P (MAP) Pulse Ox O2 Delivery O2 Flow Rate FiO2 03/22/18 09:00 74 109/63 03/22/18 09:00 74 109/63 03/22/18 09:00 Nasal Cannula 2.0 03/22/18 08:00 97.2 74 22 109/63 (78) 92 03/22/18 06:00 110/57 03/22/18 04:00 82 03/22/18 04:00 96.8 82 17 107/56 (73) 96 03/22/18 00:00 97.2 75 17 95/59 (71) 94 03/22/18 00:00 75 03/21/18 22:00 108/60 03/21/18 21:32 68 113/65 03/21/18 21:00 Nasal Cannula 2.0 03/21/18 20:00 97.2 64 18 105/55 (72) 94 03/21/18 20:00 64 03/21/18 17:58 97.3 03/21/18 16:00 48 03/21/18 16:00 97.3 75 23 75/54 (61) 92 03/21/18 13:27 123/69 Intake and Output 03/21/18 03/22/18 19:00 07:00 Output Total 0 ml Balance 0 ml Output Urine Total 0 ml # Voids 1 3 # Bowel Movements 1 General Appearance: WD/WN HEENT: normocephalic, atraumatic Respiratory/Chest: chest wall non-tender, lungs clear Breasts: no masses Cardiovascular: normal peripheral pulses Abdomen: normal bowel sounds, soft, non tender Extremities: no cyanosis Skin: no rash Neurologic/Psychiatric: supervisor phosphoric acid II-XII grossly normal Microbiology Date/Time Source Procedure Growth Status 03/20/18 19:59 Blood Blood Culture - Preliminary NO GROWTH AFTER 24 HOURS Resulted 03/20/18 19:39 Blood Blood Culture - Preliminary NO GROWTH AFTER 24 HOURS Resulted 03/20/18 22:00 Rectum Received Laboratory Tests 03/21/18 20:40: Troponin I 0.059H 03/22/18 08:15: Troponin I 0.051, White Blood Count 4.9, Red Blood Count 3.36L, Hemoglobin 11.1L , Hematocrit 36.0L, Mean Corpuscular Volume 107H, Mean Corpuscular Hemoglobin 33.2H, Mean Corpuscular Hemoglobin Concent 31.0L, Red Cell Distribution Width 18.5H, Platelet Count 222, Mean Platelet Volume 6.4L, Neutrophils (%) (Auto) 55.8, Lymphocytes (%) (Auto) 18.0L, Monocytes (%) (Auto) 7.6, Eosinophils (%) ( Auto) 16.0H, Basophils (%) (Auto) 2.6H, Sodium Level 141, Potassium Level 5.2H, Chloride Level 102, Carbon Dioxide Level 31, Anion Gap 8, Blood Urea Nitrogen 29H, Creatinine 5.3H, Estimat Glomerular Filtration Rate 9.9, Glucose Level 117H , Calcium Level 8.1L, Total Bilirubin 0.4, Aspartate Amino Transf (AST/SGOT) 22 , Alanine Aminotransferase (ALT/SGPT) 12, Alkaline Phosphatase 107, Pro-B-Type Natriuretic Peptide [id number], Total Protein 5.7L, Albumin 2.2L, Globulin 3.5, Albumin/Globulin Ratio 0.6L Current Medications Medications (Trade) Dose Ordered Sig/Ranjan Route PRN Reason Start Time Stop Time Status Last Admin Dose Admin Acetaminophen (Tylenol) 650 mg Q6HR PRN ORAL Mild Pain (Pain Scale 1-3) 03/21/18 00:30 04/20/18 00:29 Albuterol/ Ipratropium (Albuterol/ Ipratropium) 3 ml Q4H PRN HHN Shortness of Breath 03/21/18 00:30 03/26/18 00:29 Amlodipine Besylate (Norvasc) 10 mg DAILY ORAL 03/21/18 09:00 04/20/18 08:59 03/21/18 09:17 Aspirin (ASA) 325 mg DAILY ORAL 03/21/18 09:00 04/20/18 08:59 03/22/18 09:35 Calcium Acetate (Phoslo) 1,334 mg QHS ORAL 03/21/18 21:00 04/20/18 20:59 03/21/18 21:31 Clonazepam (KlonoPIN) 0.25 mg QHS ORAL 03/21/18 21:00 03/28/18 20:59 03/21/18 21:30 Clonidine HCl (Catapres tab) 0.2 mg Q8HR ORAL 03/21/18 14:00 04/20/18 05:59 03/21/18 13:27 Dextrose (Dextrose 50%) 25 ml Q30M PRN IV Hypoglycemia 03/21/18 01:30 04/20/18 01:29 Dextrose (Dextrose 50%) 50 ml Q30M PRN IV Hypoglycemia 03/21/18 01:30 04/20/18 01:29 Diphenhydramine HCl (Benadryl) 25 mg Q8HR PRN ORAL Itching 03/21/18 00:30 04/20/18 00:29 03/21/18 05:38 Diphenoxylate HCl/ Atropine (Lomotil) 5 mg DAILY PRN ORAL Diarrhea 03/21/18 00:30 04/20/18 00:29 Docusate Sodium (Colace) 100 mg THREE TIMES A DAY ORAL 03/21/18 13:00 04/20/18 12:59 03/22/18 09:35 Doxazosin Mesylate (Cardura) 4 mg QHS ORAL 03/21/18 21:00 04/20/18 20:59 03/21/18 21:31 Hydralazine HCl (Apresoline) 25 mg Q4H PRN ORAL bp over 160 syst 03/21/18 11:30 04/20/18 11:29 Ibuprofen (Motrin) 600 mg Q6H PRN ORAL For Pain 03/21/18 02:00 04/20/18 01:59 Insulin Aspart (NovoLOG) BEFORE MEALS AND HS SUBQ 03/21/18 06:30 04/20/18 06:29 Labetalol HCl (Normodyne) 600 mg BID@0900,2100 ORAL 03/21/18 09:00 04/20/18 08:59 03/21/18 21:32 Levothyroxine Sodium (Synthroid) 88 mcg DAILY@0630 ORAL 03/21/18 06:30 3/2/19 06:29 03/22/18 06:45 Mirtazapine (Remeron) 15 mg BEDTIME ORAL 03/21/18 21:00 04/20/18 20:59 03/21/18 21:31 Morphine Sulfate (Morphine Sulfate) 2 mg Q4H PRN IVP Breakthrough Pain 03/21/18 12:30 03/28/18 12:29 03/21/18 20:59 Ondansetron HCl (Zofran ODT) 4 mg Q4HR PRN ORAL Nausea & Vomiting 03/21/18 00:30 04/20/18 00:29 Pantoprazole (Protonix) 40 mg BID ORAL 03/21/18 18:00 04/20/18 08:59 03/22/18 09:33 Pregabalin (Lyrica) 75 mg BID ORAL 03/21/18 09:00 04/20/18 08:59 03/22/18 09:33 Quetiapine Fumarate (SEROquel) 50 mg Q12HR ORAL 03/21/18 09:00 04/20/18 08:59 03/22/18 09:35 Sevelamer Carbonate (Renvela) 2,400 mg TIPC ORAL 03/21/18 09:00 04/20/18 08:59 03/22/18 09:32 Tramadol HCl (Ultram) 50 mg DAILY PRN ORAL pain 03/21/18 02:00 03/28/18 01:59 03/21/18 02:13 Trazodone HCl (Desyrel) 100 mg BEDTIME ORAL 03/21/18 21:00 04/20/18 20:59 03/21/18 21:31 Vitamin B Complex/ Vit C/Folic Acid (Nephrovite) 1 tab DAILY ORAL 03/21/18 09:00 04/20/18 08:59 03/22/18 09:33 Zolpidem Tartrate (Ambien) 5 mg BEDTIME PRN ORAL Insomnia 03/21/18 00:30 03/28/18 00:29 03/21/18 02:13 Bailee Shaw MD Mar 22, 2018 12:17
[2018-03-22] MEDS: Morphine Sulfate 4mg/ml Inj (IV/IM USE ONLY) IVP PRN ×2 (13:51→22:19)
--- NOTE | 2018-03-22 14:46 | Internal Med Progress Note ---
Subjective Physician Name Jackson Albright Attending Physician Jackson Albright MD Current Medications Medications (Trade) Dose Ordered Sig/Ranjan Route PRN Reason Start Time Stop Time Status Last Admin Dose Admin Acetaminophen (Tylenol) 650 mg Q6HR PRN ORAL Mild Pain (Pain Scale 1-3) 03/21/18 00:30 04/20/18 00:29 Albuterol/ Ipratropium (Albuterol/ Ipratropium) 3 ml Q4H PRN HHN Shortness of Breath 03/21/18 00:30 03/26/18 00:29 Amlodipine Besylate (Norvasc) 10 mg DAILY ORAL 03/21/18 09:00 04/20/18 08:59 03/21/18 09:17 Aspirin (ASA) 325 mg DAILY ORAL 03/21/18 09:00 04/20/18 08:59 03/22/18 09:35 Calcium Acetate (Phoslo) 1,334 mg QHS ORAL 03/21/18 21:00 04/20/18 20:59 03/21/18 21:31 Clonazepam (KlonoPIN) 0.25 mg QHS ORAL 03/21/18 21:00 03/28/18 20:59 03/21/18 21:30 Clonidine HCl (Catapres tab) 0.2 mg Q8HR ORAL 03/21/18 14:00 04/20/18 05:59 03/21/18 13:27 Dextrose (Dextrose 50%) 25 ml Q30M PRN IV Hypoglycemia 03/21/18 01:30 04/20/18 01:29 Dextrose (Dextrose 50%) 50 ml Q30M PRN IV Hypoglycemia 03/21/18 01:30 04/20/18 01:29 Diphenhydramine HCl (Benadryl) 25 mg Q8HR PRN ORAL Itching 03/21/18 00:30 04/20/18 00:29 03/21/18 05:38 Diphenoxylate HCl/ Atropine (Lomotil) 5 mg DAILY PRN ORAL Diarrhea 03/21/18 00:30 04/20/18 00:29 Docusate Sodium (Colace) 100 mg THREE TIMES A DAY ORAL 03/21/18 13:00 04/20/18 12:59 03/22/18 13:39 Doxazosin Mesylate (Cardura) 4 mg QHS ORAL 03/21/18 21:00 04/20/18 20:59 03/21/18 21:31 Hydralazine HCl (Apresoline) 25 mg Q4H PRN ORAL bp over 160 syst 03/21/18 11:30 04/20/18 11:29 Ibuprofen (Motrin) 600 mg Q6H PRN ORAL For Pain 03/21/18 02:00 04/20/18 01:59 Insulin Aspart (NovoLOG) BEFORE MEALS AND HS SUBQ 03/21/18 06:30 04/20/18 06:29 Labetalol HCl (Normodyne) 600 mg BID@0900,2100 ORAL 03/21/18 09:00 04/20/18 08:59 03/21/18 21:32 Levothyroxine Sodium (Synthroid) 88 mcg DAILY@0630 ORAL 03/21/18 06:30 04/20/18 06:29 03/22/18 06:45 Mirtazapine (Remeron) 15 mg BEDTIME ORAL 03/21/18 21:00 04/20/18 20:59 03/21/18 21:31 Morphine Sulfate (Morphine Sulfate) 2 mg Q4H PRN IVP Breakthrough Pain 03/21/18 12:30 03/28/18 12:29 03/22/18 13:51 Ondansetron HCl (Zofran ODT) 4 mg Q4HR PRN ORAL Nausea & Vomiting 03/21/18 00:30 04/20/18 00:29 Pantoprazole (Protonix) 40 mg BID ORAL 03/21/18 18:00 04/20/18 08:59 03/22/18 09:33 Pregabalin (Lyrica) 75 mg BID ORAL 03/21/18 09:00 04/20/18 08:59 03/22/18 09:33 Quetiapine Fumarate (SEROquel) 50 mg Q12HR ORAL 03/21/18 09:00 04/20/18 08:59 03/22/18 09:35 Sevelamer Carbonate (Renvela) 2,400 mg TIPC ORAL 03/21/18 09:00 04/20/18 08:59 03/22/18 13:39 Tramadol HCl (Ultram) 50 mg DAILY PRN ORAL pain 03/21/18 02:00 03/28/18 01:59 03/21/18 02:13 Trazodone HCl (Desyrel) 100 mg BEDTIME ORAL 03/21/18 21:00 04/20/18 20:59 03/21/18 21:31 Vitamin B Complex/ Vit C/Folic Acid (Nephrovite) 1 tab DAILY ORAL 03/21/18 09:00 04/20/18 08:59 03/22/18 09:33 Zolpidem Tartrate (Ambien) 5 mg BEDTIME PRN ORAL Insomnia 03/21/18 00:30 03/28/18 00:29 03/21/18 02:13 Allergies: Coded Allergies: No Known Allergies (Unverified , 09/20/15) Subjective awake, responsive, less chest pain no acute distress, less shortness of breath, complaining about difficulty swallowing to liquid and solid Objective Last Vital Signs Date Time Temp Pulse Resp B/P (MAP) Pulse Ox O2 Delivery O2 Flow Rate FiO2 03/22/18 13:56 107/62 03/22/18 12:00 97.3 72 20 92 03/22/18 09:00 Nasal Cannula 2.0 03/20/18 23:15 28 Laboratory Tests Test 03/21/18 20:40 03/22/18 08:15 Troponin I 0.059 ng/mL (0.000-0.056) 0.051 ng/mL (0.000-0.056) White Blood Count 4.9 K/UL (4.8-10.8) Red Blood Count 3.36 M/UL (4.20-5.40) L Hemoglobin 11.1 G/DL (12.0-16.0) L Hematocrit 36.0 % (37.0-47.0) L Mean Corpuscular Volume 107 FL (80-99) H Mean Corpuscular Hemoglobin 33.2 PG (27.0-31.0) H Mean Corpuscular Hemoglobin Concent 31.0 G/DL (32.0-36.0) L Red Cell Distribution Width 18.5 % (11.6-14.8) H Platelet Count 222 K/UL (150-450) Mean Platelet Volume 6.4 FL (6.5-10.1) L Neutrophils (%) (Auto) 55.8 % (45.0-75.0) Lymphocytes (%) (Auto) 18.0 % (20.0-45.0) L Monocytes (%) (Auto) 7.6 % (1.0-10.0) Eosinophils (%) (Auto) 16.0 % (0.0-3.0) H Basophils (%) (Auto) 2.6 % (0.0-2.0) H Sodium Level 141 MMOL/L (136-145) Potassium Level 5.2 MMOL/L (3.5-5.1) H Chloride Level 102 MMOL/L (98-107) Carbon Dioxide Level 31 MMOL/L (21-32) Anion Gap 8 mmol/L (5-15) Blood Urea Nitrogen 29 mg/dL (7-18) H Creatinine 5.3 MG/DL (0.55-1.30) H Estimat Glomerular Filtration Rate 9.9 mL/min (>60) Glucose Level 117 MG/DL (74-106) H Calcium Level 8.1 MG/DL (8.5-10.1) L Total Bilirubin 0.4 MG/DL (0.2-1.0) Aspartate Amino Transf (AST/SGOT) 22 U/L (15-37) Alanine Aminotransferase (ALT/SGPT) 12 U/L (12-78) Alkaline Phosphatase 107 U/L (46-116) Pro-B-Type Natriuretic Peptide 28276 pg/mL (0-125) H Total Protein 5.7 G/DL (6.4-8.2) L Albumin 2.2 G/DL (3.4-5.0) L Globulin 3.5 g/dL Albumin/Globulin Ratio 0.6 (1.0-2.7) L Microbiology Date/Time Source Procedure Growth Status 03/20/18 19:59 Blood Blood Culture - Preliminary NO GROWTH AFTER 24 HOURS Resulted 03/20/18 19:39 Blood Blood Culture - Preliminary NO GROWTH AFTER 24 HOURS Resulted 03/20/18 22:00 Rectum Received Intake and Output 03/21/18 03/22/18 19:00 07:00 Output Total 0 ml Balance 0 ml Output Urine Total 0 ml # Voids 1 3 # Bowel Movements 1 Objective General: No acute distress, awake and alert HEENT: NCAT, sclera anicteric, PERRL, EOMI. Neck: Supple, no significant jugular venous distention, Lungs: Good inspiratory effort, no accessory muscle use, clear to auscultation bilaterally, no Wheeze or Rales. Heart: Regular rate and rhythm, normal S1/S2, no murmur Abdomen: soft, nontender, nondistended. Normoactive bowel sounds. Extremities: No Cyanosis , clubbing or edema, right upper extremity AV fistula with thrill. Neuro: A&O x 3, Able to move all extremities Skin: warm, no rashes or lesions Psych: Normal mood and affect Assessment/Plan Assessment/Plan 1. Plan chest pain possible acute coronary syndrome. 2. Shortness of breath. 3. Chest pain. 4. Ataxia. 5. End-stage renal disease. 6. Diabetes type 2. 7. Diabetic peripheral neuropathy. 8. Chronic obstructive pulmonary disease. 9. Cirrhosis of the liver. 10. Ascites. 11. History of alcohol abuse. Plan: We will follow-up with the cardiology consultation Dr. Omar Wang. Dialysis soon. Monitor labs. Ambulation. Full code. Jackson Albright MD Mar 22, 2018 14:46
[2018-03-22 16:00] VITALS: BP 115/69
--- NOTE | 2018-03-22 16:40 | Nephrology Progress Note ---
Assessment/Plan Problem List: (1) ESRD (end stage renal disease) (2) Cirrhosis of liver (3) Anemia (4) Diabetes (5) HTN (hypertension) Assessment ESRD- Anemia of CKD Ascitis- DM HTN h/o At Fib hypothyroid Plan plan: adjust meds- HD today scheduled 2D echo results noted Subjective ROS Limited/Unobtainable: No Constitutional: Reports: malaise Objective Objective Last 24 Hour Vital Signs Date Time Temp Pulse Resp B/P (MAP) Pulse Ox O2 Delivery O2 Flow Rate FiO2 03/22/18 13:56 107/62 03/22/18 12:00 97.3 72 20 107/62 (77) 92 03/22/18 09:00 74 109/63 03/22/18 09:00 74 109/63 03/22/18 09:00 Nasal Cannula 2.0 03/22/18 08:00 97.2 74 22 109/63 (78) 92 03/22/18 06:00 110/57 03/22/18 04:00 82 03/22/18 04:00 96.8 82 17 107/56 (73) 96 03/22/18 00:00 97.2 75 17 95/59 (71) 94 03/22/18 00:00 75 03/21/18 22:00 108/60 03/21/18 21:32 68 113/65 03/21/18 21:00 Nasal Cannula 2.0 03/21/18 20:00 97.2 64 18 105/55 (72) 94 03/21/18 20:00 64 03/21/18 17:58 97.3 Intake and Output 03/21/18 03/22/18 19:00 07:00 Output Total 0 ml Balance 0 ml Output Urine Total 0 ml # Voids 1 3 # Bowel Movements 1 Laboratory Tests 03/21/18 20:40: Troponin I 0.059H 03/22/18 08:15: Troponin I 0.051, White Blood Count 4.9, Red Blood Count 3.36L, Hemoglobin 11.1L , Hematocrit 36.0L, Mean Corpuscular Volume 107H, Mean Corpuscular Hemoglobin 33.2H, Mean Corpuscular Hemoglobin Concent 31.0L, Red Cell Distribution Width 18.5H, Platelet Count 222, Mean Platelet Volume 6.4L, Neutrophils (%) (Auto) 55.8, Lymphocytes (%) (Auto) 18.0L, Monocytes (%) (Auto) 7.6, Eosinophils (%) ( Auto) 16.0H, Basophils (%) (Auto) 2.6H, Sodium Level 141, Potassium Level 5.2H, Chloride Level 102, Carbon Dioxide Level 31, Anion Gap 8, Blood Urea Nitrogen 29H, Creatinine 5.3H, Estimat Glomerular Filtration Rate 9.9, Glucose Level 117H , Calcium Level 8.1L, Total Bilirubin 0.4, Aspartate Amino Transf (AST/SGOT) 22 , Alanine Aminotransferase (ALT/SGPT) 12, Alkaline Phosphatase 107, Pro-B-Type Natriuretic Peptide 10027W, Total Protein 5.7L, Albumin 2.2L, Globulin 3.5, Albumin/Globulin Ratio 0.6L Height (Feet): 5 Height (Inches): 7.00 Weight (Pounds): 140 General Appearance: no apparent distress Cardiovascular: normal rate Respiratory/Chest: decreased breath sounds Archie Sargent MD Mar 22, 2018 16:40
--- NOTE | 2018-03-22 19:03 | Cardiology Progress Note ---
Assessment/Plan Assessment/Plan 1. Chest pain likely musculoskeletal chest wall syndrome. 2. End-stage renal disease, on hemodialysis. 3. History of cirrhosis. 4. History of tobacco use disorder. 5. History of diastolic heart failure. 6. Diabetes mellitus. 7. Anemia of chronic disease. repeawt trop neg ekg neg tele reveiwed neg echo neg no further cardaic ortiz at this time rn report low bp will dc norvasc and if needed will decreaswe the clonidine as well Subjective Cardiovascular: Denies: chest pain - better Respiratory: Reports: shortness of breath - better Gastrointestinal/Abdominal: Denies: abdominal pain Genitourinary: Reports: no symptoms, burning Objective Last 24 Hour Vital Signs Date Time Temp Pulse Resp B/P (MAP) Pulse Ox O2 Delivery O2 Flow Rate FiO2 03/22/18 16:00 97.3 85 20 115/69 (84) 92 03/22/18 16:00 83 03/22/18 13:56 107/62 03/22/18 12:00 70 03/22/18 12:00 97.3 72 20 107/62 (77) 92 03/22/18 09:00 74 109/63 03/22/18 09:00 74 109/63 03/22/18 09:00 Nasal Cannula 2.0 03/22/18 08:00 71 03/22/18 08:00 97.2 74 22 109/63 (78) 92 03/22/18 06:00 110/57 03/22/18 04:00 82 03/22/18 04:00 96.8 82 17 107/56 (73) 96 03/22/18 00:00 97.2 75 17 95/59 (71) 94 03/22/18 00:00 75 03/21/18 22:00 108/60 03/21/18 21:32 68 113/65 03/21/18 21:00 Nasal Cannula 2.0 03/21/18 20:00 97.2 64 18 105/55 (72) 94 03/21/18 20:00 64 General Appearance: no apparent distress, alert Neck: supple Cardiovascular: normal rate, regular rhythm Respiratory/Chest: lungs clear Abdomen: normal bowel sounds, non tender, soft Extremities: no swelling Intake and Output 03/21/18 03/22/18 19:00 07:00 Output Total 0 ml Balance 0 ml Output Urine Total 0 ml # Voids 1 3 # Bowel Movements 1 Laboratory Tests Test 03/21/18 20:40 03/22/18 08:15 Troponin I 0.059 ng/mL (0.000-0.056) 0.051 ng/mL (0.000-0.056) White Blood Count 4.9 K/UL (4.8-10.8) Red Blood Count 3.36 M/UL (4.20-5.40) L Hemoglobin 11.1 G/DL (12.0-16.0) L Hematocrit 36.0 % (37.0-47.0) L Mean Corpuscular Volume 107 FL (80-99) H Mean Corpuscular Hemoglobin 33.2 PG (27.0-31.0) H Mean Corpuscular Hemoglobin Concent 31.0 G/DL (32.0-36.0) L Red Cell Distribution Width 18.5 % (11.6-14.8) H Platelet Count 222 K/UL (150-450) Mean Platelet Volume 6.4 FL (6.5-10.1) L Neutrophils (%) (Auto) 55.8 % (45.0-75.0) Lymphocytes (%) (Auto) 18.0 % (20.0-45.0) L Monocytes (%) (Auto) 7.6 % (1.0-10.0) Eosinophils (%) (Auto) 16.0 % (0.0-3.0) H Basophils (%) (Auto) 2.6 % (0.0-2.0) H Sodium Level 141 MMOL/L (136-145) Potassium Level 5.2 MMOL/L (3.5-5.1) H Chloride Level 102 MMOL/L (98-107) Carbon Dioxide Level 31 MMOL/L (21-32) Anion Gap 8 mmol/L (5-15) Blood Urea Nitrogen 29 mg/dL (7-18) H Creatinine 5.3 MG/DL (0.55-1.30) H Estimat Glomerular Filtration Rate 9.9 mL/min (>60) Glucose Level 117 MG/DL (74-106) H Calcium Level 8.1 MG/DL (8.5-10.1) L Total Bilirubin 0.4 MG/DL (0.2-1.0) Aspartate Amino Transf (AST/SGOT) 22 U/L (15-37) Alanine Aminotransferase (ALT/SGPT) 12 U/L (12-78) Alkaline Phosphatase 107 U/L (46-116) Pro-B-Type Natriuretic Peptide 46231 pg/mL (0-125) H Total Protein 5.7 G/DL (6.4-8.2) L Albumin 2.2 G/DL (3.4-5.0) L Globulin 3.5 g/dL Albumin/Globulin Ratio 0.6 (1.0-2.7) L Microbiology Date/Time Source Procedure Growth Status 03/20/18 19:59 Blood Blood Culture - Preliminary NO GROWTH AFTER 24 HOURS Resulted 03/20/18 19:39 Blood Blood Culture - Preliminary NO GROWTH AFTER 24 HOURS Resulted 03/20/18 22:00 Rectum Received Kevyn Dillard MD Mar 22, 2018 19:03
--- NOTE | 2018-03-22 19:25 | NUR ---
HAND-OFF: Report given to JEAN CARLOS Nathan.
[2018-03-22 20:00] VITALS: BP 123/73
--- NOTE | 2018-03-22 20:00 | NUR ---
NURSE NOTES: Report received from JEAN CARLOS Cohen. Pt is lying comfortably in semi-fowlers with no signs of distress. A+Ox4 and denies pain/SOB. Respirations are even and unlabored on room air. IV site is patent, intact, and saline locked. Bed is at lowest position, brakes engaged, siderails x2. bed alarm on, and call light within reach. Pt is in stable condition at this time; will continue to monitor.
[2018-03-22] MEDS: Calcium Acetate 667mg Tab ORAL SCH (21:09)
[2018-03-22] MEDS: Doxazosin 4mg tab ORAL SCH (21:09)
[2018-03-22] MEDS: clonazePAM 0.5mg tab ORAL SCH (21:10)
[2018-03-22] MEDS: TraZODone 100mg tab ORAL SCH (21:10)
--- NOTE | 2018-03-22 23:53 | General Progress Note ---
Assessment/Plan Problem List: (1) MDD (major depressive disorder), recurrent episode ICD Codes: F33.9 - Major depressive disorder, recurrent, unspecified SNOMED: 810662481 Status: stable, progressing Subjective Neurologic/Psychiatric: Reports: anxiety, depressed, emotional problems Allergies: Coded Allergies: No Known Allergies (Unverified , 09/20/15) Objective Last 24 Hour Vital Signs Date Time Temp Pulse Resp B/P (MAP) Pulse Ox O2 Delivery O2 Flow Rate FiO2 03/22/18 21:00 94 123/73 03/22/18 20:00 98.1 94 20 123/73 (90) 93 03/22/18 16:00 97.3 85 20 115/69 (84) 92 03/22/18 16:00 83 03/22/18 13:56 107/62 03/22/18 12:00 70 03/22/18 12:00 97.3 72 20 107/62 (77) 92 03/22/18 09:00 74 109/63 03/22/18 09:00 74 109/63 03/22/18 09:00 Nasal Cannula 2.0 03/22/18 08:00 71 03/22/18 08:00 97.2 74 22 109/63 (78) 92 03/22/18 06:00 110/57 03/22/18 04:00 82 03/22/18 04:00 96.8 82 17 107/56 (73) 96 03/22/18 00:00 97.2 75 17 95/59 (71) 94 03/22/18 00:00 75 Intake and Output 03/21/18 03/22/18 19:00 07:00 Output Total 0 ml Balance 0 ml Output Urine Total 0 ml # Voids 1 3 # Bowel Movements 1 Laboratory Tests 03/22/18 08:15: White Blood Count 4.9, Red Blood Count 3.36L, Hemoglobin 11.1L, Hematocrit 36.0L , Mean Corpuscular Volume 107H, Mean Corpuscular Hemoglobin 33.2H, Mean Corpuscular Hemoglobin Concent 31.0L, Red Cell Distribution Width 18.5H, Platelet Count 222, Mean Platelet Volume 6.4L, Neutrophils (%) (Auto) 55.8, Lymphocytes (%) (Auto) 18.0L, Monocytes (%) (Auto) 7.6, Eosinophils (%) (Auto) 16.0H, Basophils (%) (Auto) 2.6H, Sodium Level 141, Potassium Level 5.2H, Chloride Level 102, Carbon Dioxide Level 31, Anion Gap 8, Blood Urea Nitrogen 29H, Creatinine 5.3H, Estimat Glomerular Filtration Rate 9.9, Glucose Level 117H , Calcium Level 8.1L, Total Bilirubin 0.4, Aspartate Amino Transf (AST/SGOT) 22 , Alanine Aminotransferase (ALT/SGPT) 12, Alkaline Phosphatase 107, Troponin I 0.051, Pro-B-Type Natriuretic Peptide 80454M, Total Protein 5.7L, Albumin 2.2L, Globulin 3.5, Albumin/Globulin Ratio 0.6L Height (Feet): 5 Height (Inches): 7.00 Weight (Pounds): 140 General Appearance: WD/WN, no apparent distress, alert Neurologic: oriented x 3, responsive, depressed affect Eric Galan MD Mar 22, 2018 23:53
[2018-03-23] VITALS: BP 103/57
[2018-03-23 04:00] VITALS: BP 105/56
--- NOTE | 2018-03-23 05:38 | NUR ---
HAND-OFF: Pt transferred safely to 4E. Pt lethargic from dialysis, but in stable condition. Report given to JEAN CARLOS Forrest. Plan of care endorsed. Daughter called about transfer, but mailbox full. Spoke with pt's mother to inform her of patient's transfer.
--- NOTE | 2018-03-23 05:41 | NUR ---
NURSE NOTES: Received patient in bed, asleep, arousable to verbal and tactile stimuli, no acute distress noted, report given by Venita EVANGELISTA from telemetry floor. Belongings are accounted for, bed is in low position, locked and alarm is on, call light is within reach. Will continue to monitor.
[2018-03-23] MEDS: NovoLOG Insulin Flexpen SUBQ SCH ×4 (06:30→21:00)
--- NOTE | 2018-03-23 07:20 | NUR ---
NURSE NOTES: Received patient in bed asleep,easily arousable , no sign of respiratory distress noted, bed is in low position, locked and alarm is on, call light is within reach. Will continue to monitor. snehal cervantes
--- NOTE | 2018-03-23 07:27 | NUR ---
HAND-OFF: Report given to Leila EVANGELISTA.
[2018-03-23] MEDS ORDERED: HydrALAZINE 25mg tab ORAL PRN (07:30)
[2018-03-23 08:00] VITALS: BP 130/70
[2018-03-23] MEDS ORDERED: Morphine Sulfate 4mg/ml Inj (IV/IM USE ONLY) IVP PRN (08:30)
[2018-03-23] MEDS ORDERED: Albuterol/Ipratropium 3ml neb HHN PRN (08:30)
[2018-03-23] MEDS: Lyrica 75mg cap ORAL SCH ×2 (08:55→17:25)
[2018-03-23] MEDS: Docusate 100mg cap ORAL SCH ×3 (08:55→17:24)
[2018-03-23] MEDS: Nephrovite tab (Rena-Vite) ORAL SCH (08:57)
[2018-03-23] MEDS: cloNIDine 0.2mg Tab ORAL SCH ×2 (08:57→17:25)
[2018-03-23] MEDS ORDERED: Lomotil 2.5mg tab ORAL PRN (09:00)
[2018-03-23] MEDS ORDERED: traMADol 50mg tab ORAL PRN (09:00)
[2018-03-23] MEDS ORDERED: cloNIDine 0.2mg Tab ORAL SCH (09:00)
[2018-03-23] MEDS: Labetalol 200mg tab ORAL SCH ×2 (09:41→20:57)
[2018-03-23 11:54] VITALS: BP 118/65
--- NOTE | 2018-03-23 12:31 | Pulmonology Progress Note ---
Assessment/Plan Assessment/Plan ASSESSMENT Acute respiratory failure , requiring mask -resolved ( probably due to fluid overload) Chest pain likely due to musculoskeletal chest wall syndrome End-stage renal disease ,on hemodialysis Diastolic congestive heart failure Coronary artery disease with history of [place] Moderate pulmonary hypertension Substance abuse Hx of tobacco use Seizure disorder Hypothyroidism Liver cirrhosis PLAN OF CARE [facility] floor Acute respiratory failure- resolved, was likely secondary to fluid overload pulse ox stable on RA O2 HHN prn Echo with EF 55-60% , RVSP of 53 consistent with moderate pulmonary hypertension cardio follow A/PLT Rx with ASA; lipid panel stable, troponin level minimally elevated , not consistent with pattern of acute coronary syndrome EKG revealed no acute ischemic changes per cardiology chest pain was likely secondary to musculoskeletal wall syndrome last troponin negative pain management addressed as needed no CP currently BP management with multiply antihypertensive medication as per [employer] supervisor blood sugar management with SSI HD as per nephro, monitor volumes, renal parameters, correct lytes prn fup with further nephro recs GI prophylaxis bowel regimen supportive care monitor H&H with goal to keep hemoglobin above 7 , remained stable counseled on abstinence from smoking and illicit street drugs seizure precautions continue levothyroxine psych meds as per psych recs case discussed and evaluated by supervising physician Subjective Allergies: Coded Allergies: No Known Allergies (Unverified , 09/20/15) Subjective denies chest pain, SOB pulse ox stable on RA Objective Last 24 Hour Vital Signs Date Time Temp Pulse Resp B/P (MAP) Pulse Ox O2 Delivery O2 Flow Rate FiO2 03/23/18 11:54 97.4 95 18 118/65 (82) 94 03/23/18 09:41 90 130/70 03/23/18 08:57 130/70 03/23/18 08:30 Room Air 03/23/18 08:00 97.2 90 19 130/70 (90) 100 03/23/18 04:00 90 03/23/18 04:00 98.0 92 20 105/56 (72) 100 03/23/18 00:00 87 03/23/18 00:00 98.2 91 20 103/57 (72) 100 03/22/18 21:00 94 123/73 03/22/18 21:00 Room Air 03/22/18 20:00 98.1 94 20 123/73 (90) 93 03/22/18 20:00 93 03/22/18 16:00 97.3 85 20 115/69 (84) 92 03/22/18 16:00 83 03/22/18 13:56 107/62 Intake and Output 03/22/18 03/23/18 18:59 06:59 Intake Total 2000 ml Output Total 0 ml 2500 ml Balance 0 ml -500 ml Hemodialysis 2000 ml Output Urine Total 0 ml Hemodialysis UF 2500 ml General Appearance: no acute distress, other - awake, alert, AA female in NAD HEENT: normocephalic, atraumatic, anicteric Respiratory/Chest: lungs clear - withmoderate air exchange Cardiovascular: normal peripheral pulses, normal rate, no JVD Abdomen: normal bowel sounds, soft, non tender Extremities: no edema Neurologic/Psychiatric: alert, oriented x 3, responsive Musculoskeletal: normal muscle bulk Microbiology Date/Time Source Procedure Growth Status 03/20/18 19:59 Blood Blood Culture - Preliminary NO GROWTH AFTER 48 HOURS Resulted 03/20/18 19:39 Blood Blood Culture - Preliminary NO GROWTH AFTER 48 HOURS Resulted 03/20/18 22:00 Nasal Nares MRSA Culture - Final NO METHICILLIN RESISTANT STAPH AUREUS... Complete 03/20/18 22:00 Rectum - Final NO CARBAPENEM-RESISTANT ENTEROBACTERI... Complete 03/20/18 22:00 Rectum VRE Culture - Final NO VANCOMYCIN RESISTANT ENTEROCOCCUS ... Complete Current Medications Medications (Trade) Dose Ordered Sig/Ranjan Route PRN Reason Start Time Stop Time Status Last Admin Dose Admin Acetaminophen (Tylenol) 650 mg Q6HR PRN ORAL Mild Pain (Pain Scale 1-3) 03/23/18 06:00 04/20/18 00:29 Albuterol/ Ipratropium (Albuterol/ Ipratropium) 3 ml Q4H PRN HHN Shortness of Breath 03/23/18 08:30 03/26/18 00:29 Aspirin (ASA) 325 mg DAILY ORAL 03/23/18 09:00 04/20/18 08:59 03/23/18 08:56 Calcium Acetate (Phoslo) 1,334 mg QHS ORAL 03/23/18 21:00 04/20/18 20:59 Clonazepam (KlonoPIN) 0.25 mg QHS ORAL 03/23/18 21:00 03/28/18 20:59 Clonidine HCl (Catapres tab) 0.2 mg BID ORAL 03/23/18 09:00 04/22/18 08:59 03/23/18 08:57 Dextrose (Dextrose 50%) 25 ml Q30M PRN IV Hypoglycemia 03/23/18 05:00 04/20/18 01:29 Dextrose (Dextrose 50%) 50 ml Q30M PRN IV Hypoglycemia 03/23/18 05:00 04/20/18 01:29 Diphenhydramine HCl (Benadryl) 25 mg Q8HR PRN ORAL Itching 03/23/18 06:00 04/20/18 00:29 Diphenoxylate HCl/ Atropine (Lomotil) 5 mg DAILY PRN ORAL Diarrhea 03/23/18 09:00 04/20/18 00:29 Docusate Sodium (Colace) 100 mg THREE TIMES A DAY ORAL 03/23/18 09:00 04/20/18 12:59 03/23/18 08:55 Doxazosin Mesylate (Cardura) 4 mg QHS ORAL 03/23/18 21:00 04/20/18 20:59 Hydralazine HCl (Apresoline) 25 mg Q4H PRN ORAL bp over 160 syst 03/23/18 07:30 04/20/18 11:29 Ibuprofen (Motrin) 600 mg Q6H PRN ORAL For Pain 03/23/18 08:00 04/20/18 01:59 Insulin Aspart (NovoLOG) BEFORE MEALS AND HS SUBQ 03/23/18 06:30 04/20/18 06:29 Labetalol HCl (Normodyne) 600 mg BID@0900,2100 ORAL 03/23/18 09:00 04/20/18 08:59 Levothyroxine Sodium (Synthroid) 88 mcg DAILY@0630 ORAL 03/23/18 06:30 04/20/18 06:29 03/23/18 06:55 Mirtazapine (Remeron) 15 mg BEDTIME ORAL 03/23/18 21:00 04/20/18 20:59 Morphine Sulfate (Morphine Sulfate) 2 mg Q4H PRN IVP Breakthrough Pain 03/23/18 08:30 03/28/18 12:29 03/23/18 09:41 Ondansetron HCl (Zofran ODT) 4 mg Q4HR PRN ORAL Nausea & Vomiting 03/23/18 05:00 04/20/18 00:29 Pantoprazole (Protonix) 40 mg BID ORAL 03/23/18 09:00 04/20/18 08:59 03/23/18 08:56 Pregabalin (Lyrica) 75 mg BID ORAL 03/23/18 09:00 04/20/18 08:59 03/23/18 08:55 Quetiapine Fumarate (SEROquel) 50 mg Q12HR ORAL 03/23/18 09:00 04/20/18 08:59 03/23/18 08:55 Sevelamer Carbonate (Renvela) 2,400 mg TIPC ORAL 03/23/18 09:00 04/20/18 08:59 03/23/18 08:51 Tramadol HCl (Ultram) 50 mg DAILY PRN ORAL pain 03/23/18 09:00 03/28/18 01:59 Trazodone HCl (Desyrel) 100 mg BEDTIME ORAL 03/23/18 21:00 04/20/18 20:59 Vitamin B Complex/ Vit C/Folic Acid (Nephrovite) 1 tab DAILY ORAL 03/23/18 09:00 04/20/18 08:59 03/23/18 08:57 Zolpidem Tartrate (Ambien) 5 mg BEDTIME PRN ORAL Insomnia 03/23/18 21:00 03/28/18 00:29 Patti Johnston NP Mar 23, 2018 12:31
--- NOTE | 2018-03-23 14:51 | Internal Med Progress Note ---
Subjective Date of Service: Mar 23, 2018 Physician Name HuertaAdair Attending Physician Jackson Albright MD Current Medications Medications (Trade) Dose Ordered Sig/Ranjan Route PRN Reason Start Time Stop Time Status Last Admin Dose Admin Acetaminophen (Tylenol) 650 mg Q6HR PRN ORAL Mild Pain (Pain Scale 1-3) 03/23/18 06:00 04/20/18 00:29 Albuterol/ Ipratropium (Albuterol/ Ipratropium) 3 ml Q4H PRN HHN Shortness of Breath 03/23/18 08:30 03/26/18 00:29 Aspirin (ASA) 325 mg DAILY ORAL 03/23/18 09:00 04/20/18 08:59 03/23/18 08:56 Calcium Acetate (Phoslo) 1,334 mg QHS ORAL 03/23/18 21:00 04/20/18 20:59 Clonazepam (KlonoPIN) 0.25 mg QHS ORAL 03/23/18 21:00 03/28/18 20:59 Clonidine HCl (Catapres tab) 0.2 mg BID ORAL 03/23/18 09:00 04/22/18 08:59 03/23/18 08:57 Dextrose (Dextrose 50%) 25 ml Q30M PRN IV Hypoglycemia 03/23/18 05:00 04/20/18 01:29 Dextrose (Dextrose 50%) 50 ml Q30M PRN IV Hypoglycemia 03/23/18 05:00 04/20/18 01:29 Diphenhydramine HCl (Benadryl) 25 mg Q8HR PRN ORAL Itching 03/23/18 06:00 04/20/18 00:29 Diphenoxylate HCl/ Atropine (Lomotil) 5 mg DAILY PRN ORAL Diarrhea 03/23/18 09:00 04/20/18 00:29 Docusate Sodium (Colace) 100 mg THREE TIMES A DAY ORAL 03/23/18 09:00 04/20/18 12:59 03/23/18 12:32 Doxazosin Mesylate (Cardura) 4 mg QHS ORAL 03/23/18 21:00 04/20/18 20:59 Hydralazine HCl (Apresoline) 25 mg Q4H PRN ORAL bp over 160 syst 03/23/18 07:30 04/20/18 11:29 Ibuprofen (Motrin) 600 mg Q6H PRN ORAL For Pain 03/23/18 08:00 04/20/18 01:59 Insulin Aspart (NovoLOG) BEFORE MEALS AND HS SUBQ 03/23/18 06:30 04/20/18 06:29 Labetalol HCl (Normodyne) 600 mg BID@0900,2100 ORAL 03/23/18 09:00 04/20/18 08:59 Levothyroxine Sodium (Synthroid) 88 mcg DAILY@0630 ORAL 03/23/18 06:30 04/20/18 06:29 03/23/18 06:55 Mirtazapine (Remeron) 15 mg BEDTIME ORAL 03/23/18 21:00 04/20/18 20:59 Morphine Sulfate (Morphine Sulfate) 2 mg Q4H PRN IVP Breakthrough Pain 03/23/18 08:30 03/28/18 12:29 03/23/18 09:41 Ondansetron HCl (Zofran ODT) 4 mg Q4HR PRN ORAL Nausea & Vomiting 03/23/18 05:00 04/20/18 00:29 Pantoprazole (Protonix) 40 mg BID ORAL 03/23/18 09:00 04/20/18 08:59 03/23/18 08:56 Pregabalin (Lyrica) 75 mg BID ORAL 03/23/18 09:00 04/20/18 08:59 03/23/18 08:55 Quetiapine Fumarate (SEROquel) 50 mg Q12HR ORAL 03/23/18 09:00 04/20/18 08:59 03/23/18 08:55 Sevelamer Carbonate (Renvela) 2,400 mg TIPC ORAL 03/23/18 09:00 04/20/18 08:59 03/23/18 12:32 Tramadol HCl (Ultram) 50 mg DAILY PRN ORAL pain 03/23/18 09:00 03/28/18 01:59 Trazodone HCl (Desyrel) 100 mg BEDTIME ORAL 03/23/18 21:00 04/20/18 20:59 Vitamin B Complex/ Vit C/Folic Acid (Nephrovite) 1 tab DAILY ORAL 03/23/18 09:00 04/20/18 08:59 03/23/18 08:57 Zolpidem Tartrate (Ambien) 5 mg BEDTIME PRN ORAL Insomnia 03/23/18 21:00 03/28/18 00:29 Allergies: Coded Allergies: No Known Allergies (Unverified , 09/20/15) ROS Limited/Unobtainable: No Constitutional: Reports: no symptoms HEENT: Reports: no symptoms Cardiovascular: Reports: no symptoms Respiratory: Reports: no symptoms Gastrointestinal/Abdominal: Reports: no symptoms Genitourinary: Reports: no symptoms Neurologic/Psychiatric: Reports: no symptoms Subjective 63 YO F admitted with chief complaint of chest pain. Cover for Int Med-dr Albright Objective Last Vital Signs Date Time Temp Pulse Resp B/P (MAP) Pulse Ox O2 Delivery O2 Flow Rate FiO2 03/23/18 11:54 97.4 95 18 118/65 (82) 94 03/23/18 08:30 Room Air 03/22/18 09:00 2.0 03/20/18 23:15 28 General Appearance: WD/WN, no apparent distress, alert EENT: PERRL/EOMI, normal ENT inspection Neck: non-tender, normal alignment, supple, normal inspection Cardiovascular: normal peripheral pulses, normal rate, regular rhythm, no gallop/murmur, no JVD Respiratory/Chest: chest wall non-tender, lungs clear, normal breath sounds, no respiratory distress, no accessory muscle use Abdomen: normal bowel sounds, non tender, soft, no organomegaly, no mass Extremities: normal range of motion Skin: normal pigmentation, warm/dry Microbiology Date/Time Source Procedure Growth Status 03/20/18 19:59 Blood Blood Culture - Preliminary NO GROWTH AFTER 48 HOURS Resulted 03/20/18 19:39 Blood Blood Culture - Preliminary NO GROWTH AFTER 48 HOURS Resulted 03/20/18 22:00 Nasal Nares MRSA Culture - Final NO METHICILLIN RESISTANT STAPH AUREUS... Complete 03/20/18 22:00 Rectum - Final NO CARBAPENEM-RESISTANT ENTEROBACTERI... Complete 03/20/18 22:00 Rectum VRE Culture - Final NO VANCOMYCIN RESISTANT ENTEROCOCCUS ... Complete Intake and Output 03/22/18 03/23/18 19:00 07:00 Intake Total 2000 ml Output Total 0 ml 2500 ml Balance 0 ml -500 ml Hemodialysis 2000 ml Output Urine Total 0 ml Hemodialysis UF 2500 ml Assessment/Plan Problem List: (1) Atypical chest pain Assessment & Plan: See cardiology note. (2) Shortness of breath (3) ESRD (end stage renal disease) on dialysis Assessment & Plan: See nephrology note. Last hemodialysis 03/22/18 (4) Ataxia (5) Diabetes mellitus, type II Assessment & Plan: continue novology sliding scale. (6) Diabetic peripheral neuropathy (7) COPD (chronic obstructive pulmonary disease) Assessment & Plan: see pulmonary note. (8) Cirrhosis of liver (9) Ascites Status: progressing Adair Huerta MD Mar 23, 2018 14:51
[2018-03-23 16:06] VITALS: BP 131/72
--- NOTE | 2018-03-23 16:34 | Cardiology Progress Note ---
Assessment/Plan Assessment/Plan 1. Chest pain likely musculoskeletal chest wall syndrome. 2. End-stage renal disease, on hemodialysis. 3. History of cirrhosis. 4. History of tobacco use disorder. 5. History of diastolic heart failure. 6. Diabetes mellitus. 7. Anemia of chronic disease. repeawt trop neg ekg neg tele reveiwed neg echo neg no further cardaic ortiz at this time rn report low bp will dc norvasc and if needed will decreaswe the clonidine as well bp for now seems better Subjective ROS Limited/Unobtainable: Yes Subjective sleeping Objective Last 24 Hour Vital Signs Date Time Temp Pulse Resp B/P (MAP) Pulse Ox O2 Delivery O2 Flow Rate FiO2 03/23/18 16:06 98.1 89 18 131/72 (91) 95 03/23/18 11:54 97.4 95 18 118/65 (82) 94 03/23/18 09:41 90 130/70 03/23/18 08:57 130/70 03/23/18 08:30 Room Air 03/23/18 08:00 97.2 90 19 130/70 (90) 100 03/23/18 04:00 90 03/23/18 04:00 98.0 92 20 105/56 (72) 100 03/23/18 00:00 87 03/23/18 00:00 98.2 91 20 103/57 (72) 100 03/22/18 21:00 94 123/73 03/22/18 21:00 Room Air 03/22/18 20:00 98.1 94 20 123/73 (90) 93 03/22/18 20:00 93 General Appearance: WD/WN, no apparent distress Intake and Output 03/22/18 03/23/18 19:00 07:00 Intake Total 2000 ml Output Total 0 ml 2500 ml Balance 0 ml -500 ml Hemodialysis 2000 ml Output Urine Total 0 ml Hemodialysis UF 2500 ml Microbiology Date/Time Source Procedure Growth Status 03/20/18 19:59 Blood Blood Culture - Preliminary NO GROWTH AFTER 48 HOURS Resulted 03/20/18 19:39 Blood Blood Culture - Preliminary NO GROWTH AFTER 48 HOURS Resulted 03/20/18 22:00 Nasal Nares MRSA Culture - Final NO METHICILLIN RESISTANT STAPH AUREUS... Complete 03/20/18 22:00 Rectum - Final NO CARBAPENEM-RESISTANT ENTEROBACTERI... Complete 03/20/18 22:00 Rectum VRE Culture - Final NO VANCOMYCIN RESISTANT ENTEROCOCCUS ... Complete Kevyn Dillard MD Mar 23, 2018 16:34
--- NOTE | 2018-03-23 17:11 | Nephrology Progress Note ---
Assessment/Plan Problem List: (1) ESRD (end stage renal disease) (2) Cirrhosis of liver (3) Anemia (4) Diabetes (5) HTN (hypertension) Assessment ESRD- Anemia of CKD Ascitis- DM HTN h/o At Fib hypothyroid Plan plan: adjust meds- HD next 03/25 2D echo results noted Subjective ROS Limited/Unobtainable: No Constitutional: Reports: malaise Objective Objective Last 24 Hour Vital Signs Date Time Temp Pulse Resp B/P (MAP) Pulse Ox O2 Delivery O2 Flow Rate FiO2 03/23/18 16:06 98.1 89 18 131/72 (91) 95 03/23/18 11:54 97.4 95 18 118/65 (82) 94 03/23/18 09:41 90 130/70 03/23/18 08:57 130/70 03/23/18 08:30 Room Air 03/23/18 08:00 97.2 90 19 130/70 (90) 100 03/23/18 04:00 90 03/23/18 04:00 98.0 92 20 105/56 (72) 100 03/23/18 00:00 87 03/23/18 00:00 98.2 91 20 103/57 (72) 100 03/22/18 21:00 94 123/73 03/22/18 21:00 Room Air 03/22/18 20:00 98.1 94 20 123/73 (90) 93 03/22/18 20:00 93 Intake and Output 03/22/18 03/23/18 19:00 07:00 Intake Total 2000 ml Output Total 0 ml 2500 ml Balance 0 ml -500 ml Hemodialysis 2000 ml Output Urine Total 0 ml Hemodialysis UF 2500 ml Height (Feet): 5 Height (Inches): 7.00 Weight (Pounds): 140 General Appearance: no apparent distress Cardiovascular: normal rate Respiratory/Chest: decreased breath sounds Abdomen: soft Archie Sargent MD Mar 23, 2018 17:11
--- NOTE | 2018-03-23 17:39 | NUR ---
nurse notes left message to [facility] tel no [phone] regarding patient scheduled for HD on Sun03/25/18, awaiting for their return call snehal cervantes
--- NOTE | 2018-03-23 19:14 | NUR ---
HAND-OFF: Report given to JEAN CARLOS Nick.
--- NOTE | 2018-03-23 19:59 | NUR ---
NURSE NOTES: Patient in bed, awake, alert and verbally responsive. Able to make needs known. Bed in low and locked position. Provided safe environment. Call light is at bedside. skin is warm and dry to touch. Abdomen is soft. IV site is patent. No complaint of pain or discomfort noted at this time. Will continue plan of care.
[2018-03-23 20:00] VITALS: BP 109/65
[2018-03-23] MEDS: TraZODone 100mg tab ORAL SCH (20:51)
[2018-03-23] MEDS: Calcium Acetate 667mg Tab ORAL SCH (20:52)
[2018-03-23] MEDS: Doxazosin 4mg tab ORAL SCH (20:52)
[2018-03-23] MEDS ORDERED: clonazePAM 0.5mg tab ORAL SCH (21:00)
--- NOTE | 2018-03-23 23:21 | General Progress Note ---
Assessment/Plan Problem List: (1) MDD (major depressive disorder), recurrent episode ICD Codes: F33.9 - Major depressive disorder, recurrent, unspecified SNOMED: 737384809 (2) H/O ETOH abuse ICD Codes: Z87.898 - Personal history of other specified conditions SNOMED: 386710526 Status: stable, progressing Subjective Neurologic/Psychiatric: Reports: anxiety, depressed, emotional problems Allergies: Coded Allergies: No Known Allergies (Unverified , 09/20/15) Objective Last 24 Hour Vital Signs Date Time Temp Pulse Resp B/P (MAP) Pulse Ox O2 Delivery O2 Flow Rate FiO2 03/23/18 21:00 Room Air 03/23/18 20:57 73 110/65 03/23/18 20:00 98.0 89 18 109/65 (80) 95 03/23/18 17:25 131/72 03/23/18 16:06 98.1 89 18 131/72 (91) 95 03/23/18 11:54 97.4 95 18 118/65 (82) 94 03/23/18 09:41 90 130/70 03/23/18 08:57 130/70 03/23/18 08:30 Room Air 03/23/18 08:00 97.2 90 19 130/70 (90) 100 03/23/18 04:00 90 03/23/18 04:00 98.0 92 20 105/56 (72) 100 03/23/18 00:00 87 03/23/18 00:00 98.2 91 20 103/57 (72) 100 Intake and Output 03/22/18 03/23/18 19:00 07:00 Intake Total 2000 ml Output Total 0 ml 2500 ml Balance 0 ml -500 ml Hemodialysis 2000 ml Output Urine Total 0 ml Hemodialysis UF 2500 ml Height (Feet): 5 Height (Inches): 7.00 Weight (Pounds): 140 General Appearance: alert, overweight Neurologic: oriented x 3, responsive, depressed affect Eric Galan MD Mar 23, 2018 23:21
[2018-03-24] VITALS: BP 138/79
[2018-03-24] MEDS: Zolpidem 5mg tab ORAL PRN (02:18)
[2018-03-24 04:00] VITALS: BP_SYST 137; BP_SYST 138; BP_DIAS 74; BP_DIAS 79
[2018-03-24] MEDS: NovoLOG Insulin Flexpen SUBQ SCH ×4 (06:30→20:40)
--- NOTE | 2018-03-24 06:30 | NUR ---
NURSE NOTES: Unable to attain exact weight. Patient is not on a emily bed and standing scale unable to find.
--- NOTE | 2018-03-24 07:17 | NUR ---
HAND-OFF: Report given to JEAN CARLOS Haynes.
[2018-03-24 08:00] VITALS: BP 155/83
--- NOTE | 2018-03-24 08:13 | Pulmonology Progress Note ---
Assessment/Plan Assessment/Plan ASSESSMENT Acute respiratory failure , requiring mask -resolved ( probably due to fluid overload) Chest pain likely due to musculoskeletal chest wall syndrome End-stage renal disease ,on hemodialysis Diastolic congestive heart failure Coronary artery disease with history of ME Moderate pulmonary hypertension Substance abuse Hx of tobacco use Seizure disorder Hypothyroidism Liver cirrhosis PLAN OF CARE [facility] floor Acute respiratory failure- resolved, was likely secondary to fluid overload pulse ox stable on RA O2 HHN prn Echo with EF 55-60% , RVSP of 53 consistent with moderate pulmonary hypertension cardio follow A/PLT Rx with ASA; lipid panel stable, troponin level minimally elevated , not consistent with pattern of acute coronary syndrome EKG revealed no acute ischemic changes per cardiology chest pain was likely secondary to musculoskeletal wall syndrome last troponin negative pain management addressed as needed no CP currently BP management with multiply antihypertensive medication as per preventive maintenance coordinator blood sugar management with SSI HD as per nephro Kayexalate today since HD not until tomorrow monitor volumes, renal parameters, correct lytes as needed fup with further nephro recs GI prophylaxis bowel regimen supportive care monitor H&H with goal to keep hemoglobin above 7 , remained stable counseled on abstinence from smoking and illicit street drugs seizure precautions continue levothyroxine psych meds as per psych recs case discussed and evaluated by supervising physician Subjective Allergies: Coded Allergies: No Known Allergies (Unverified , 09/20/15) Subjective denies chest pain, SOB pulse ox stable on 3L )2 via NC K-5.9 Objective Last 24 Hour Vital Signs Date Time Temp Pulse Resp B/P (MAP) Pulse Ox O2 Delivery O2 Flow Rate FiO2 03/24/18 04:00 97.9 99 20 138/79 (98) 94 03/24/18 04:00 97.7 100 20 137/74 (95) 94 03/24/18 00:00 97.9 99 20 138/79 (98) 94 03/23/18 21:00 Room Air 03/23/18 20:57 73 110/65 03/23/18 20:00 98.0 89 18 109/65 (80) 95 03/23/18 17:25 131/72 03/23/18 16:06 98.1 89 18 131/72 (91) 95 03/23/18 11:54 97.4 95 18 118/65 (82) 94 03/23/18 09:41 90 130/70 03/23/18 08:57 130/70 03/23/18 08:30 Room Air Intake and Output 03/23/18 03/24/18 19:00 07:00 Intake Total 950 ml Balance 950 ml Other 950 ml Objective General Appearance: no acute distress, other - awake, alert, AA female in NAD HEENT: normocephalic, atraumatic, anicteric Respiratory/Chest: lungs clear - withmoderate air exchange Cardiovascular: normal peripheral pulses, normal rate, no JVD Abdomen: normal bowel sounds, soft, non tender Extremities: no edema Neurologic/Psychiatric: alert, oriented x 3, responsive Musculoskeletal: normal muscle bulk Current Medications Medications (Trade) Dose Ordered Sig/Ranjan Route PRN Reason Start Time Stop Time Status Last Admin Dose Admin Acetaminophen (Tylenol) 650 mg Q6HR PRN ORAL Mild Pain (Pain Scale 1-3) 03/23/18 06:00 04/20/18 00:29 Albuterol/ Ipratropium (Albuterol/ Ipratropium) 3 ml Q4H PRN HHN Shortness of Breath 03/23/18 08:30 03/26/18 00:29 Aspirin (ASA) 325 mg DAILY ORAL 03/23/18 09:00 04/20/18 08:59 03/23/18 08:56 Calcium Acetate (Phoslo) 1,334 mg QHS ORAL 03/23/18 21:00 04/20/18 20:59 03/23/18 20:52 Clonazepam (KlonoPIN) 0.25 mg QHS ORAL 03/23/18 21:00 03/28/18 20:59 03/23/18 20:51 Clonidine HCl (Catapres tab) 0.2 mg BID ORAL 03/23/18 09:00 04/22/18 08:59 03/23/18 08:57 Dextrose (Dextrose 50%) 25 ml Q30M PRN IV Hypoglycemia 03/23/18 05:00 04/20/18 01:29 Dextrose (Dextrose 50%) 50 ml Q30M PRN IV Hypoglycemia 03/23/18 05:00 04/20/18 01:29 Diphenhydramine HCl (Benadryl) 25 mg Q8HR PRN ORAL Itching 03/23/18 06:00 04/20/18 00:29 Diphenoxylate HCl/ Atropine (Lomotil) 5 mg DAILY PRN ORAL Diarrhea 03/23/18 09:00 04/20/18 00:29 Docusate Sodium (Colace) 100 mg THREE TIMES A DAY ORAL 03/23/18 09:00 04/20/18 12:59 03/23/18 17:24 Doxazosin Mesylate (Cardura) 4 mg QHS ORAL 03/23/18 21:00 04/20/18 20:59 03/23/18 20:52 Hydralazine HCl (Apresoline) 25 mg Q4H PRN ORAL bp over 160 syst 03/23/18 07:30 04/20/18 11:29 Ibuprofen (Motrin) 600 mg Q6H PRN ORAL For Pain 03/23/18 08:00 04/20/18 01:59 Insulin Aspart (NovoLOG) BEFORE MEALS AND HS SUBQ 03/23/18 06:30 04/20/18 06:29 Labetalol HCl (Normodyne) 600 mg BID@0900,2100 ORAL 03/23/18 09:00 04/20/18 08:59 Levothyroxine Sodium (Synthroid) 88 mcg DAILY@0630 ORAL 03/23/18 06:30 04/20/18 06:29 03/24/18 06:34 Mirtazapine (Remeron) 15 mg BEDTIME ORAL 03/23/18 21:00 04/20/18 20:59 03/23/18 20:51 Morphine Sulfate (Morphine Sulfate) 2 mg Q4H PRN IVP Breakthrough Pain 03/23/18 08:30 03/28/18 12:29 03/23/18 09:41 Ondansetron HCl (Zofran ODT) 4 mg Q4HR PRN ORAL Nausea & Vomiting 03/23/18 05:00 04/20/18 00:29 Pantoprazole (Protonix) 40 mg BID ORAL 03/23/18 09:00 04/20/18 08:59 03/23/18 17:24 Pregabalin (Lyrica) 75 mg BID ORAL 03/23/18 09:00 04/20/18 08:59 03/23/18 17:25 Quetiapine Fumarate (SEROquel) 50 mg Q12HR ORAL 03/23/18 09:00 04/20/18 08:59 03/23/18 20:53 Sevelamer Carbonate (Renvela) 2,400 mg TIPC ORAL 03/23/18 09:00 04/20/18 08:59 03/23/18 17:24 Tramadol HCl (Ultram) 50 mg DAILY PRN ORAL pain 03/23/18 09:00 03/28/18 01:59 Trazodone HCl (Desyrel) 100 mg BEDTIME ORAL 03/23/18 21:00 04/20/18 20:59 03/23/18 20:51 Vitamin B Complex/ Vit C/Folic Acid (Nephrovite) 1 tab DAILY ORAL 03/23/18 09:00 04/20/18 08:59 03/23/18 08:57 Zolpidem Tartrate (Ambien) 5 mg BEDTIME PRN ORAL Insomnia 03/23/18 21:00 03/28/18 00:29 03/24/18 02:18 Patti Johnston NP Mar 24, 2018 08:13
[2018-03-24 09:02] LABS: ANION GAP 6 mmol/L (5-15); BLOOD UREA NITROGEN 30 mg/dL (7-18); CALCIUM 8.1 MG/DL (8.5-10.1); CARBON DIOXIDE 30 MMOL/L (21-32); CHLORIDE 104 MMOL/L (98-107); CREATININE 5.6 MG/DL (0.55-1.30); POTASSIUM 5.9 MMOL/L (3.5-5.1); SODIUM 140 MMOL/L (136-145)
[2018-03-24 09:05] LABS: BASOPHILS % (AUTO) 1.1 % (0.0-2.0); EOSINOPHILS % (AUTO) 8.8 % (0.0-3.0); HEMATOCRIT 34.5 % (37.0-47.0); HEMOGLOBIN 10.6 G/DL (12.0-16.0); LYMPHOCYTES % (AUTO) 12.8 % (20.0-45.0); MEAN CORPUSCULAR VOLUME 108 FL (80-99); MONOCYTES % (AUTO) 6.4 % (1.0-10.0); PLATELET COUNT 165 K/UL (150-450); RED BLOOD COUNT 3.19 M/UL (4.20-5.40); RED CELL DISTRIBUTION WIDTH 17.9 % (11.6-14.8); WHITE BLOOD COUNT 7.4 K/UL (4.8-10.8)
[2018-03-24] MEDS: Labetalol 200mg tab ORAL SCH ×2 (09:30→20:39)
[2018-03-24] MEDS: Nephrovite tab (Rena-Vite) ORAL SCH (09:31)
[2018-03-24] MEDS: Lyrica 75mg cap ORAL SCH ×2 (09:32→17:23)
[2018-03-24] MEDS: Docusate 100mg cap ORAL SCH ×3 (09:33→17:23)
[2018-03-24] MEDS: cloNIDine 0.2mg Tab ORAL SCH (09:33)
--- NOTE | 2018-03-24 10:00 | NUR ---
NURSE NOTES: not given seroquel as pt is very sleepy, even after being waken up.
[2018-03-24] MEDS ORDERED: Sodium Polystyrene Sulfonate 15gm Powder ORAL SCH ×2 (11:30)
[2018-03-24 12:00] VITALS: BP 148/78
--- NOTE | 2018-03-24 12:14 | Cardiology Progress Note ---
Assessment/Plan Assessment/Plan 1. Chest pain likely musculoskeletal chest wall syndrome. 2. End-stage renal disease, on hemodialysis. 3. History of cirrhosis. 4. History of tobacco use disorder. 5. History of diastolic heart failure. 6. Diabetes mellitus. 7. Anemia of chronic disease. repeat trop neg ekg neg echo neg no further cardaic ortiz at this time rn report low bp will dc norvasc and if needed will decreaswe the clonidine as well bp not fully controlled will add norvasc low dose drowseinss likely due to meds Subjective ROS Limited/Unobtainable: Yes Cardiovascular: Denies: chest pain Subjective sleepy Objective Last 24 Hour Vital Signs Date Time Temp Pulse Resp B/P (MAP) Pulse Ox O2 Delivery O2 Flow Rate FiO2 03/24/18 09:33 155/83 03/24/18 09:32 97.8 03/24/18 09:30 111 155/83 03/24/18 09:00 Room Air 03/24/18 08:16 111 20 Nasal Cannula 3.0 32 03/24/18 08:00 97.8 111 17 155/83 (107) 96 03/24/18 04:00 97.9 99 20 138/79 (98) 94 03/24/18 04:00 97.7 100 20 137/74 (95) 94 03/24/18 00:00 97.9 99 20 138/79 (98) 94 03/23/18 21:00 Room Air 03/23/18 20:57 73 110/65 03/23/18 20:00 98.0 89 18 109/65 (80) 95 03/23/18 17:25 131/72 03/23/18 16:06 98.1 89 18 131/72 (91) 95 General Appearance: no apparent distress, other - drowsey Neck: supple Cardiovascular: normal rate Respiratory/Chest: lungs clear Abdomen: non tender, soft Extremities: no swelling Intake and Output 03/23/18 03/24/18 18:59 06:59 Intake Total 950 ml Balance 950 ml Other 950 ml Laboratory Tests Test 03/24/18 07:30 White Blood Count 7.4 K/UL (4.8-10.8) Red Blood Count 3.19 M/UL (4.20-5.40) L Hemoglobin 10.6 G/DL (12.0-16.0) L Hematocrit 34.5 % (37.0-47.0) L Mean Corpuscular Volume 108 FL (80-99) H Mean Corpuscular Hemoglobin 33.2 PG (27.0-31.0) H Mean Corpuscular Hemoglobin Concent 30.7 G/DL (32.0-36.0) L Red Cell Distribution Width 17.9 % (11.6-14.8) H Platelet Count 165 K/UL (150-450) Mean Platelet Volume 6.2 FL (6.5-10.1) L Neutrophils (%) (Auto) 71.0 % (45.0-75.0) Lymphocytes (%) (Auto) 12.8 % (20.0-45.0) L Monocytes (%) (Auto) 6.4 % (1.0-10.0) Eosinophils (%) (Auto) 8.8 % (0.0-3.0) H Basophils (%) (Auto) 1.1 % (0.0-2.0) Sodium Level 140 MMOL/L (136-145) Potassium Level 5.9 MMOL/L (3.5-5.1) H Chloride Level 104 MMOL/L (98-107) Carbon Dioxide Level 30 MMOL/L (21-32) Anion Gap 6 mmol/L (5-15) Blood Urea Nitrogen 30 mg/dL (7-18) H Creatinine 5.6 MG/DL (0.55-1.30) H Estimat Glomerular Filtration Rate 9.3 mL/min (>60) Glucose Level 106 MG/DL (74-106) Calcium Level 8.1 MG/DL (8.5-10.1) L Kevyn Dillard MD Mar 24, 2018 12:14
--- NOTE | 2018-03-24 12:18 | NUR ---
NURSE NOTES: not given insulin coverage at this time as patient is very sleepy and refused breakfast and lunch.
--- NOTE | 2018-03-24 14:17 | Nephrology Progress Note ---
Assessment/Plan Problem List: (1) ESRD (end stage renal disease) (2) Cirrhosis of liver (3) Anemia (4) Diabetes (5) HTN (hypertension) Assessment ESRD- Anemia of CKD Ascitis- DM HTN h/o At Fib hypothyroid Plan plan: adjust BP meds- Kayexelate HD next 03/25 2D echo results noted continue per psych Subjective ROS Limited/Unobtainable: No Constitutional: Reports: malaise, weakness Objective Objective Last 24 Hour Vital Signs Date Time Temp Pulse Resp B/P (MAP) Pulse Ox O2 Delivery O2 Flow Rate FiO2 03/24/18 12:00 98.1 63 14 148/78 (101) 63 03/24/18 09:33 155/83 03/24/18 09:32 97.8 03/24/18 09:30 111 155/83 03/24/18 09:00 Room Air 03/24/18 08:16 111 20 Nasal Cannula 3.0 32 03/24/18 08:00 97.8 111 17 155/83 (107) 96 03/24/18 04:00 97.9 99 20 138/79 (98) 94 03/24/18 04:00 97.7 100 20 137/74 (95) 94 03/24/18 00:00 97.9 99 20 138/79 (98) 94 03/23/18 21:00 Room Air 03/23/18 20:57 73 110/65 03/23/18 20:00 98.0 89 18 109/65 (80) 95 03/23/18 17:25 131/72 03/23/18 16:06 98.1 89 18 131/72 (91) 95 Intake and Output 03/23/18 03/24/18 18:59 06:59 Intake Total 950 ml Balance 950 ml Other 950 ml Laboratory Tests 03/24/18 07:30: White Blood Count 7.4, Red Blood Count 3.19L, Hemoglobin 10.6L, Hematocrit 34.5L , Mean Corpuscular Volume 108H, Mean Corpuscular Hemoglobin 33.2H, Mean Corpuscular Hemoglobin Concent 30.7L, Red Cell Distribution Width 17.9H, Platelet Count 165, Mean Platelet Volume 6.2L, Neutrophils (%) (Auto) 71.0, Lymphocytes (%) (Auto) 12.8L, Monocytes (%) (Auto) 6.4, Eosinophils (%) (Auto) 8.8H, Basophils (%) (Auto) 1.1, Sodium Level 140, Potassium Level 5.9H, Chloride Level 104, Carbon Dioxide Level 30, Anion Gap 6, Blood Urea Nitrogen 30H, Creatinine 5.6H, Estimat Glomerular Filtration Rate 9.3, Glucose Level 106 , Calcium Level 8.1L Height (Feet): 5 Height (Inches): 7.00 Weight (Pounds): 140 General Appearance: no apparent distress Cardiovascular: tachycardia Respiratory/Chest: decreased breath sounds Abdomen: distended Archie Sargent MD Mar 24, 2018 14:17
--- NOTE | 2018-03-24 15:22 | NUR ---
NURSE NOTES: patient very drowsy, but arousable upon shaking. Contacted dr. Albright re: patient condition, orders taken and carried out.
--- NOTE | 2018-03-24 15:46 | Internal Med Progress Note ---
Subjective Date of Service: Mar 24, 2018 Physician Name Huerta,Adair Attending Physician Jackson Albright MD Current Medications Medications (Trade) Dose Ordered Sig/Ranjan Route PRN Reason Start Time Stop Time Status Last Admin Dose Admin Acetaminophen (Tylenol) 650 mg Q6HR PRN ORAL Mild Pain (Pain Scale 1-3) 03/23/18 06:00 04/20/18 00:29 Albuterol/ Ipratropium (Albuterol/ Ipratropium) 3 ml Q4H PRN HHN Shortness of Breath 03/23/18 08:30 03/26/18 00:29 Amlodipine Besylate (Norvasc) 2.5 mg DAILY ORAL 03/25/18 09:00 04/24/18 08:59 Aspirin (ASA) 325 mg DAILY ORAL 03/23/18 09:00 04/20/18 08:59 03/23/18 08:56 Calcium Acetate (Phoslo) 1,334 mg QHS ORAL 03/23/18 21:00 04/20/18 20:59 03/23/18 20:52 Clonidine HCl (Catapres Tab) 0.1 mg Q8HR ORAL 03/24/18 22:00 04/22/18 08:59 Dextrose (Dextrose 50%) 25 ml Q30M PRN IV Hypoglycemia 03/23/18 05:00 04/20/18 01:29 Dextrose (Dextrose 50%) 50 ml Q30M PRN IV Hypoglycemia 03/23/18 05:00 04/20/18 01:29 Diphenhydramine HCl (Benadryl) 25 mg Q8HR PRN ORAL Itching 03/23/18 06:00 04/20/18 00:29 Diphenoxylate HCl/ Atropine (Lomotil) 5 mg DAILY PRN ORAL Diarrhea 03/23/18 09:00 04/20/18 00:29 Docusate Sodium (Colace) 100 mg THREE TIMES A DAY ORAL 03/23/18 09:00 04/20/18 12:59 03/24/18 13:19 Doxazosin Mesylate (Cardura) 4 mg QHS ORAL 03/23/18 21:00 04/20/18 20:59 03/23/18 20:52 Hydralazine HCl (Apresoline) 25 mg Q4H PRN ORAL bp over 160 syst 03/23/18 07:30 04/20/18 11:29 Ibuprofen (Motrin) 600 mg Q6H PRN ORAL For Pain 03/23/18 08:00 04/20/18 01:59 Insulin Aspart (NovoLOG) BEFORE MEALS AND HS SUBQ 03/23/18 06:30 04/20/18 06:29 Labetalol HCl (Normodyne) 600 mg BID@0900,2100 ORAL 03/23/18 09:00 04/20/18 08:59 03/24/18 09:30 Levothyroxine Sodium (Synthroid) 88 mcg DAILY@0630 ORAL 03/23/18 06:30 04/20/18 06:29 03/24/18 06:34 Mirtazapine (Remeron) 15 mg BEDTIME ORAL 03/23/18 21:00 04/20/18 20:59 03/23/18 20:51 Morphine Sulfate (Morphine Sulfate) 2 mg Q4H PRN IVP Breakthrough Pain 03/23/18 08:30 03/28/18 12:29 03/23/18 09:41 Ondansetron HCl (Zofran ODT) 4 mg Q4HR PRN ORAL Nausea & Vomiting 03/23/18 05:00 04/20/18 00:29 Pantoprazole (Protonix) 40 mg BID ORAL 03/23/18 09:00 04/20/18 08:59 03/23/18 17:24 Pregabalin (Lyrica) 75 mg BID ORAL 03/23/18 09:00 04/20/18 08:59 03/24/18 09:32 Sevelamer Carbonate (Renvela) 2,400 mg TIPC ORAL 03/23/18 09:00 04/20/18 08:59 03/24/18 13:19 Tramadol HCl (Ultram) 50 mg DAILY PRN ORAL pain 03/23/18 09:00 03/28/18 01:59 Trazodone HCl (Desyrel) 100 mg BEDTIME ORAL 03/23/18 21:00 04/20/18 20:59 03/23/18 20:51 Vitamin B Complex/ Vit C/Folic Acid (Nephrovite) 1 tab DAILY ORAL 03/23/18 09:00 04/20/18 08:59 03/24/18 09:31 Zolpidem Tartrate (Ambien) 5 mg BEDTIME PRN ORAL Insomnia 03/23/18 21:00 03/28/18 00:29 03/24/18 02:18 Allergies: Coded Allergies: No Known Allergies (Unverified , 09/20/15) ROS Limited/Unobtainable: No Constitutional: Reports: no symptoms HEENT: Reports: no symptoms Cardiovascular: Reports: no symptoms Respiratory: Reports: no symptoms Gastrointestinal/Abdominal: Reports: no symptoms Genitourinary: Reports: no symptoms Subjective 63 YO F admitted with chief complaint of chest pain. Cover for Int Esa-dr Albright Objective Last Vital Signs Date Time Temp Pulse Resp B/P (MAP) Pulse Ox O2 Delivery O2 Flow Rate FiO2 03/24/18 12:00 98.1 63 14 148/78 (101) 63 03/24/18 09:00 Room Air 03/24/18 08:16 3.0 32 Laboratory Tests Test 03/24/18 07:30 03/24/18 07:45 White Blood Count 7.4 K/UL (4.8-10.8) Red Blood Count 3.19 M/UL (4.20-5.40) L Hemoglobin 10.6 G/DL (12.0-16.0) L Hematocrit 34.5 % (37.0-47.0) L Mean Corpuscular Volume 108 FL (80-99) H Mean Corpuscular Hemoglobin 33.2 PG (27.0-31.0) H Mean Corpuscular Hemoglobin Concent 30.7 G/DL (32.0-36.0) L Red Cell Distribution Width 17.9 % (11.6-14.8) H Platelet Count 165 K/UL (150-450) Mean Platelet Volume 6.2 FL (6.5-10.1) L Neutrophils (%) (Auto) 71.0 % (45.0-75.0) Lymphocytes (%) (Auto) 12.8 % (20.0-45.0) L Monocytes (%) (Auto) 6.4 % (1.0-10.0) Eosinophils (%) (Auto) 8.8 % (0.0-3.0) H Basophils (%) (Auto) 1.1 % (0.0-2.0) Sodium Level 140 MMOL/L (136-145) Potassium Level 5.9 MMOL/L (3.5-5.1) H Chloride Level 104 MMOL/L (98-107) Carbon Dioxide Level 30 MMOL/L (21-32) Anion Gap 6 mmol/L (5-15) Blood Urea Nitrogen 30 mg/dL (7-18) H Creatinine 5.6 MG/DL (0.55-1.30) H Estimat Glomerular Filtration Rate 9.3 mL/min (>60) Glucose Level 106 MG/DL (74-106) Calcium Level 8.1 MG/DL (8.5-10.1) L C-Reactive Protein, Quantitative 2.9 mg/dL (0.00-0.90) H Intake and Output 03/23/18 03/24/18 19:00 07:00 Intake Total 950 ml Balance 950 ml Other 950 ml Objective General Appearance: WD/WN, no apparent distress, alert EENT: PERRL/EOMI, normal ENT inspection Neck: non-tender, normal alignment, supple, normal inspection Cardiovascular: normal peripheral pulses, normal rate, regular rhythm, no gallop/murmur, no JVD Respiratory/Chest: chest wall non-tender, lungs clear, normal breath sounds, no respiratory distress, no accessory muscle use Abdomen: normal bowel sounds, non tender, soft, no organomegaly, no mass Extremities: normal range of motion Skin: normal pigmentation, warm/dry Assessment/Plan Problem List: (1) Atypical chest pain Assessment & Plan: See cardiology note. (2) Shortness of breath (3) ESRD (end stage renal disease) on dialysis Assessment & Plan: See nephrology note. Next hemodialysis 03/25/18 (4) Ataxia (5) Diabetes mellitus, type II Assessment & Plan: continue novolog sliding scale. (6) Diabetic peripheral neuropathy (7) COPD (chronic obstructive pulmonary disease) Assessment & Plan: see pulmonary note. (8) Cirrhosis of liver (9) Ascites Status: progressing Adair Huerta MD Mar 24, 2018 15:46
[2018-03-24 16:00] VITALS: BP 99/51
[2018-03-24] MEDS ORDERED: clonazePAM 0.5mg tab ORAL PRN (16:15)
--- NOTE | 2018-03-24 19:42 | NUR ---
NURSE NOTES: Received patient sleeping,no SOB noted.
[2018-03-24 20:14] VITALS: BP 104/56
[2018-03-24] MEDS: Doxazosin 4mg tab ORAL SCH (20:39)
[2018-03-24] MEDS: TraZODone 100mg tab ORAL SCH (20:39)
[2018-03-24] MEDS: Calcium Acetate 667mg Tab ORAL SCH (20:40)
--- NOTE | 2018-03-24 21:36 | General Progress Note ---
Assessment/Plan Problem List: (1) MDD (major depressive disorder), recurrent episode ICD Codes: F33.9 - Major depressive disorder, recurrent, unspecified SNOMED: 489904494 (2) H/O ETOH abuse ICD Codes: Z87.898 - Personal history of other specified conditions SNOMED: 794796343 Status: stable, progressing Assessment/Plan trazadone 50mg po qhs seroquel 25ng po bid provided ro/st Subjective Neurologic/Psychiatric: Reports: anxiety, depressed Allergies: Coded Allergies: No Known Allergies (Unverified , 09/20/15) Subjective the pt was drowsy earlier Seroquel was dced Objective Last 24 Hour Vital Signs Date Time Temp Pulse Resp B/P (MAP) Pulse Ox O2 Delivery O2 Flow Rate FiO2 03/24/18 20:40 104/56 03/24/18 20:39 83 104/56 03/24/18 20:14 99.3 83 18 104/56 (72) 94 03/24/18 20:10 Room Air 03/24/18 17:53 98.7 03/24/18 16:00 98.7 83 16 99/51 (67) 94 03/24/18 12:00 98.1 63 14 148/78 (101) 93 03/24/18 09:33 155/83 03/24/18 09:30 111 155/83 03/24/18 09:00 Room Air 03/24/18 08:16 111 20 Nasal Cannula 3.0 32 03/24/18 08:00 97.8 111 17 155/83 (107) 96 03/24/18 04:00 97.9 99 20 138/79 (98) 94 03/24/18 04:00 97.7 100 20 137/74 (95) 94 03/24/18 00:00 97.9 99 20 138/79 (98) 94 Intake and Output 03/23/18 03/24/18 19:00 07:00 Intake Total 950 ml Balance 950 ml Other 950 ml Laboratory Tests 03/24/18 07:30: White Blood Count 7.4, Red Blood Count 3.19L, Hemoglobin 10.6L, Hematocrit 34.5L , Mean Corpuscular Volume 108H, Mean Corpuscular Hemoglobin 33.2H, Mean Corpuscular Hemoglobin Concent 30.7L, Red Cell Distribution Width 17.9H, Platelet Count 165, Mean Platelet Volume 6.2L, Neutrophils (%) (Auto) 71.0, Lymphocytes (%) (Auto) 12.8L, Monocytes (%) (Auto) 6.4, Eosinophils (%) (Auto) 8.8H, Basophils (%) (Auto) 1.1, Sodium Level 140, Potassium Level 5.9H, Chloride Level 104, Carbon Dioxide Level 30, Anion Gap 6, Blood Urea Nitrogen 30H, Creatinine 5.6H, Estimat Glomerular Filtration Rate 9.3, Glucose Level 106 , Calcium Level 8.1L 03/24/18 07:45: C-Reactive Protein, Quantitative 2.9H Height (Feet): 5 Height (Inches): 7.00 Weight (Pounds): 140 General Appearance: no apparent distress, alert Neurologic: oriented x 3, responsive, depressed affect Eric Galan MD Mar 24, 2018 21:36
[2018-03-25 00:21] VITALS: BP 103/76
[2018-03-25] MEDS: TraZODone 100mg tab ORAL SCH (01:26)
[2018-03-25] MEDS: Zolpidem 5mg tab ORAL PRN (02:37)
[2018-03-25 04:00] VITALS: BP 101/56
[2018-03-25] MEDS: NovoLOG Insulin Flexpen SUBQ SCH ×4 (05:42→21:00)
[2018-03-25 06:17] LABS: BASOPHILS % (AUTO) 1.7 % (0.0-2.0); EOSINOPHILS % (AUTO) 10.4 % (0.0-3.0); HEMATOCRIT 32.2 % (37.0-47.0); HEMOGLOBIN 9.8 G/DL (12.0-16.0); LYMPHOCYTES % (AUTO) 13.4 % (20.0-45.0); MEAN CORPUSCULAR VOLUME 110 FL (80-99); MONOCYTES % (AUTO) 8.5 % (1.0-10.0); PLATELET COUNT 131 K/UL (150-450); RED BLOOD COUNT 2.94 M/UL (4.20-5.40); RED CELL DISTRIBUTION WIDTH 18.3 % (11.6-14.8)
[2018-03-25 06:46] LABS: ALANINE AMINOTRANSFERASE 12 U/L (12-78); ALBUMIN 2.1 G/DL (3.4-5.0); ALBUMIN/GLOBULIN RATIO 0.5 (1.0-2.7); ALKALINE PHOSPHATASE 98 U/L (46-116); ANION GAP 6 mmol/L (5-15); ASPARTATE AMINO TRANSFERASE 24 U/L (15-37); BILIRUBIN,TOTAL 0.4 MG/DL (0.2-1.0); BLOOD UREA NITROGEN 40 mg/dL (7-18); CALCIUM 8.2 MG/DL (8.5-10.1); CARBON DIOXIDE 29 MMOL/L (21-32); CHLORIDE 104 MMOL/L (98-107); CREATININE 6.8 MG/DL (0.55-1.30); PHOSPHORUS 6.1 MG/DL (2.5-4.9); POTASSIUM 5.7 MMOL/L (3.5-5.1); SODIUM 139 MMOL/L (136-145)
--- NOTE | 2018-03-25 07:17 | NUR ---
HAND-OFF: Report given to Wily Lopez RN.
--- NOTE | 2018-03-25 07:58 | NUR ---
NURSE NOTES: PT AXOX4, CALM, RESTING IN BED. IN NO APPARENT DISTRESS AT THIS TIME. BED IN LOWEST POSITION WITH BEDSIDE RAILS X2 RAISED. CALL LIGHT WITHIN REACH. WILL CONTINUE TO MONITOR. Addendum: 03/25/18 at 1503 by LUIS VALDIVIA RN RN pt is alert to name only.
[2018-03-25 08:00] VITALS: BP 105/74
[2018-03-25] MEDS: Lyrica 75mg cap ORAL SCH ×2 (09:31→17:03)
[2018-03-25] MEDS: Docusate 100mg cap ORAL SCH ×3 (09:31→17:03)
[2018-03-25] MEDS: Nephrovite tab (Rena-Vite) ORAL SCH (09:31)
[2018-03-25] MEDS: Labetalol 200mg tab ORAL SCH ×2 (09:32→21:19)
[2018-03-25] MEDS ORDERED: Sodium Polystyrene Sulfonate 15gm Powder ORAL SCH (10:19)
[2018-03-25 11:54] VITALS: BP 108/92
--- NOTE | 2018-03-25 12:01 | NUR ---
RD ASSESSMENT & RECOMMENDATIONS SEE CARE ACTIVITY FOR COMPLETE ASSESSMENT DAILY ESTIMATED NEEDS: Needs based on ESRD on HD 63.6kg 30-35 kcals/kg 6229-6407 total kcals 1.2-1.8 g protein/kg 76-115 g total protein Fluid per MD, on HD NUTRITION DIAGNOSIS: Increased protein and kcal needs r/t renal dysfunction as evidenced by ESRD on HD CURRENT DIET: Renal / CCHO MED PO DIET RECOMMENDATIONS: RENAL DIET + HIGH PROTEIN SNACKS BID ADDITIONAL RECOMMENDATIONS: -CHANGE BED TO [place] FOR DAILY WTS OR OBTAIN A STANDING WEIGHT FOR ACCURATE CBW -Monitor po intake / variable at this time -Add NEPRO qdaily w/ continued variable intake (425kcal/19g prot each) .
--- NOTE | 2018-03-25 13:01 | General Progress Note ---
Assessment/Plan Problem List: (1) MDD (major depressive disorder), recurrent episode ICD Codes: F33.9 - Major depressive disorder, recurrent, unspecified SNOMED: 806362867 (2) H/O ETOH abuse ICD Codes: Z87.898 - Personal history of other specified conditions SNOMED: 683610943 Assessment/Plan trazadone 50mg po qhs dc seroquel 25ng po bid dc klonopin dc remeron provided ro/st Subjective Allergies: Coded Allergies: No Known Allergies (Unverified , 09/20/15) Subjective the pt was asleep however arousable. she was on several sedatives Objective Last 24 Hour Vital Signs Date Time Temp Pulse Resp B/P (MAP) Pulse Ox O2 Delivery O2 Flow Rate FiO2 03/25/18 11:54 97.5 87 20 108/92 (97) 97 03/25/18 09:32 86 105/74 03/25/18 09:32 86 105/74 03/25/18 09:00 Nasal Cannula 2.0 03/25/18 08:11 86 20 Nasal Cannula 2.0 28 03/25/18 08:00 97.7 87 20 105/74 (84) 95 03/25/18 05:41 101/56 03/25/18 04:00 98.8 84 21 101/56 (71) 100 03/25/18 00:52 103 20 Nasal Cannula 2.0 28 03/25/18 00:21 99.1 79 19 103/76 (85) 94 03/24/18 20:40 104/56 03/24/18 20:39 83 104/56 03/24/18 20:14 99.3 83 18 104/56 (72) 94 03/24/18 20:10 Room Air 03/24/18 17:53 98.7 03/24/18 16:00 98.7 83 16 99/51 (67) 94 Intake and Output 03/24/18 03/25/18 18:59 06:59 Intake Total 220 ml Balance 220 ml Intake Oral 220 ml # Bowel Movements 1 Laboratory Tests 03/25/18 04:50: White Blood Count 6.0, Red Blood Count 2.94L, Hemoglobin 9.8L, Hematocrit 32.2L , Mean Corpuscular Volume 110H, Mean Corpuscular Hemoglobin 33.4H, Mean Corpuscular Hemoglobin Concent 30.5L, Red Cell Distribution Width 18.3H, Platelet Count 131L, Mean Platelet Volume 6.4L, Neutrophils (%) (Auto) 66.0, Lymphocytes (%) (Auto) 13.4L, Monocytes (%) (Auto) 8.5, Eosinophils (%) (Auto) 10.4H, Basophils (%) (Auto) 1.7, Sodium Level 139, Potassium Level 5.7H, Chloride Level 104, Carbon Dioxide Level 29, Anion Gap 6, Blood Urea Nitrogen 40H, Creatinine 6.8H, Estimat Glomerular Filtration Rate 7.5, Glucose Level 110H , Uric Acid 4.2, Calcium Level 8.2L, Phosphorus Level 6.1H, Magnesium Level 2.2 , Total Bilirubin 0.4, Aspartate Amino Transf (AST/SGOT) 24, Alanine Aminotransferase (ALT/SGPT) 12, Alkaline Phosphatase 98, Troponin I 0.056, Pro-B -Type Natriuretic Peptide 40825J, Total Protein 6.3L, Albumin 2.1L, Globulin 4.2 , Albumin/Globulin Ratio 0.5L Height (Feet): 5 Height (Inches): 7.00 Weight (Pounds): 140 General Appearance: no apparent distress, lethargic Eric Galan MD Mar 25, 2018 13:01
--- NOTE | 2018-03-25 13:16 | Nephrology Progress Note ---
Assessment/Plan Problem List: (1) ESRD (end stage renal disease) (2) Cirrhosis of liver (3) Anemia (4) Diabetes (5) HTN (hypertension) Assessment ESRD- Anemia of CKD Ascitis- DM HTN h/o At Fib hypothyroid Plan plan: adjust BP meds- Kayexelate HD next 03/25 2D echo results noted continue per psych Subjective ROS Limited/Unobtainable: No Constitutional: Reports: malaise Objective Objective Last 24 Hour Vital Signs Date Time Temp Pulse Resp B/P (MAP) Pulse Ox O2 Delivery O2 Flow Rate FiO2 03/25/18 11:54 97.5 87 20 108/92 (97) 97 03/25/18 09:32 86 105/74 03/25/18 09:32 86 105/74 03/25/18 09:00 Nasal Cannula 2.0 03/25/18 08:11 86 20 Nasal Cannula 2.0 28 03/25/18 08:00 97.7 87 20 105/74 (84) 95 03/25/18 05:41 101/56 03/25/18 04:00 98.8 84 21 101/56 (71) 100 03/25/18 00:52 103 20 Nasal Cannula 2.0 28 03/25/18 00:21 99.1 79 19 103/76 (85) 94 03/24/18 20:40 104/56 03/24/18 20:39 83 104/56 03/24/18 20:14 99.3 83 18 104/56 (72) 94 03/24/18 20:10 Room Air 03/24/18 17:53 98.7 03/24/18 16:00 98.7 83 16 99/51 (67) 94 Intake and Output 03/24/18 03/25/18 19:00 07:00 Intake Total 220 ml Balance 220 ml Intake Oral 220 ml # Bowel Movements 1 Laboratory Tests 03/25/18 04:50: White Blood Count 6.0, Red Blood Count 2.94L, Hemoglobin 9.8L, Hematocrit 32.2L , Mean Corpuscular Volume 110H, Mean Corpuscular Hemoglobin 33.4H, Mean Corpuscular Hemoglobin Concent 30.5L, Red Cell Distribution Width 18.3H, Platelet Count 131L, Mean Platelet Volume 6.4L, Neutrophils (%) (Auto) 66.0, Lymphocytes (%) (Auto) 13.4L, Monocytes (%) (Auto) 8.5, Eosinophils (%) (Auto) 10.4H, Basophils (%) (Auto) 1.7, Sodium Level 139, Potassium Level 5.7H, Chloride Level 104, Carbon Dioxide Level 29, Anion Gap 6, Blood Urea Nitrogen 40H, Creatinine 6.8H, Estimat Glomerular Filtration Rate 7.5, Glucose Level 110H , Uric Acid 4.2, Calcium Level 8.2L, Phosphorus Level 6.1H, Magnesium Level 2.2 , Total Bilirubin 0.4, Aspartate Amino Transf (AST/SGOT) 24, Alanine Aminotransferase (ALT/SGPT) 12, Alkaline Phosphatase 98, Troponin I 0.056, Pro-B -Type Natriuretic Peptide 90118H, Total Protein 6.3L, Albumin 2.1L, Globulin 4.2 , Albumin/Globulin Ratio 0.5L Height (Feet): 5 Height (Inches): 7.00 Weight (Pounds): 140 General Appearance: no apparent distress Objective no change Archie Sargent MD Mar 25, 2018 13:16
--- NOTE | 2018-03-25 14:59 | Pulmonology Progress Note ---
Assessment/Plan Problems: (1) ACS (acute coronary syndrome) (2) ESRD (end stage renal disease) (3) Cirrhosis of liver (4) HTN (hypertension) (5) Hypothyroidism (6) Diabetes (7) H/O ETOH abuse Assessment/Plan getting dialyzed troponin negative symptomatic treatment HD by nephrology respiratory treatment pain management dc planning Subjective ROS Limited/Unobtainable: No Constitutional: Reports: no symptoms HEENT: Repors: no symptoms Respiratory: Reports: no symptoms Allergies: Coded Allergies: No Known Allergies (Unverified , 09/20/15) Objective Last 24 Hour Vital Signs Date Time Temp Pulse Resp B/P (MAP) Pulse Ox O2 Delivery O2 Flow Rate FiO2 03/25/18 14:00 108/92 03/25/18 12:30 Nasal Cannula 03/25/18 11:54 97.5 87 20 108/92 (97) 97 03/25/18 09:32 86 105/74 03/25/18 09:32 86 105/74 03/25/18 09:00 Nasal Cannula 2.0 03/25/18 08:11 86 20 Nasal Cannula 2.0 28 03/25/18 08:00 97.7 87 20 105/74 (84) 95 03/25/18 05:41 101/56 03/25/18 04:00 98.8 84 21 101/56 (71) 100 03/25/18 00:52 103 20 Nasal Cannula 2.0 28 03/25/18 00:21 99.1 79 19 103/76 (85) 94 03/24/18 20:40 104/56 03/24/18 20:39 83 104/56 03/24/18 20:14 99.3 83 18 104/56 (72) 94 03/24/18 20:10 Room Air 03/24/18 17:53 98.7 03/24/18 16:00 98.7 83 16 99/51 (67) 94 Intake and Output 03/24/18 03/25/18 18:59 06:59 Intake Total 220 ml Balance 220 ml Intake Oral 220 ml # Bowel Movements 1 General Appearance: WD/WN HEENT: normocephalic, atraumatic Respiratory/Chest: chest wall non-tender, lungs clear Breasts: no masses Cardiovascular: normal rate Abdomen: normal bowel sounds, soft, non tender, no scars Skin: no rash Laboratory Tests 03/25/18 04:50: White Blood Count 6.0, Red Blood Count 2.94L, Hemoglobin 9.8L, Hematocrit 32.2L , Mean Corpuscular Volume 110H, Mean Corpuscular Hemoglobin 33.4H, Mean Corpuscular Hemoglobin Concent 30.5L, Red Cell Distribution Width 18.3H, Platelet Count 131L, Mean Platelet Volume 6.4L, Neutrophils (%) (Auto) 66.0, Lymphocytes (%) (Auto) 13.4L, Monocytes (%) (Auto) 8.5, Eosinophils (%) (Auto) 10.4H, Basophils (%) (Auto) 1.7, Sodium Level 139, Potassium Level 5.7H, Chloride Level 104, Carbon Dioxide Level 29, Anion Gap 6, Blood Urea Nitrogen 40H, Creatinine 6.8H, Estimat Glomerular Filtration Rate 7.5, Glucose Level 110H , Uric Acid 4.2, Calcium Level 8.2L, Phosphorus Level 6.1H, Magnesium Level 2.2 , Total Bilirubin 0.4, Aspartate Amino Transf (AST/SGOT) 24, Alanine Aminotransferase (ALT/SGPT) 12, Alkaline Phosphatase 98, Troponin I 0.056, Pro-B -Type Natriuretic Peptide 32719X, Total Protein 6.3L, Albumin 2.1L, Globulin 4.2 , Albumin/Globulin Ratio 0.5L Current Medications Medications (Trade) Dose Ordered Sig/Ranjan Route PRN Reason Start Time Stop Time Status Last Admin Dose Admin Acetaminophen (Tylenol) 650 mg Q6HR PRN ORAL Mild Pain (Pain Scale 1-3) 03/23/18 06:00 04/20/18 00:29 Albuterol/ Ipratropium (Albuterol/ Ipratropium) 3 ml Q4H PRN HHN Shortness of Breath 03/23/18 08:30 03/26/18 00:29 Amlodipine Besylate (Norvasc) 2.5 mg DAILY ORAL 03/25/18 09:00 04/24/18 08:59 Aspirin (ASA) 325 mg DAILY ORAL 03/23/18 09:00 04/20/18 08:59 03/25/18 09:30 Calcium Acetate (Phoslo) 1,334 mg QHS ORAL 03/23/18 21:00 04/20/18 20:59 03/23/18 20:52 Clonidine HCl (Catapres Tab) 0.1 mg Q8HR ORAL 03/24/18 22:00 04/22/18 08:59 Dextrose (Dextrose 50%) 25 ml Q30M PRN IV Hypoglycemia 03/23/18 05:00 04/20/18 01:29 Dextrose (Dextrose 50%) 50 ml Q30M PRN IV Hypoglycemia 03/23/18 05:00 04/20/18 01:29 Diphenhydramine HCl (Benadryl) 25 mg Q8HR PRN ORAL Itching 03/23/18 06:00 04/20/18 00:29 Diphenoxylate HCl/ Atropine (Lomotil) 5 mg DAILY PRN ORAL Diarrhea 03/23/18 09:00 04/20/18 00:29 Docusate Sodium (Colace) 100 mg THREE TIMES A DAY ORAL 03/23/18 09:00 04/20/18 12:59 03/24/18 17:23 Doxazosin Mesylate (Cardura) 4 mg QHS ORAL 03/23/18 21:00 04/20/18 20:59 03/23/18 20:52 Hydralazine HCl (Apresoline) 25 mg Q4H PRN ORAL bp over 160 syst 03/23/18 07:30 04/20/18 11:29 Ibuprofen (Motrin) 600 mg Q6H PRN ORAL For Pain 03/23/18 08:00 04/20/18 01:59 Insulin Aspart (NovoLOG) BEFORE MEALS AND HS SUBQ 03/23/18 06:30 04/20/18 06:29 Labetalol HCl (Normodyne) 600 mg BID@0900,2100 ORAL 03/23/18 09:00 04/20/18 08:59 03/24/18 09:30 Levothyroxine Sodium (Synthroid) 88 mcg DAILY@0630 ORAL 03/23/18 06:30 04/20/18 06:29 03/25/18 05:42 Morphine Sulfate (Morphine Sulfate) 2 mg Q4H PRN IVP Breakthrough Pain 03/23/18 08:30 03/28/18 12:29 03/23/18 09:41 Ondansetron HCl (Zofran ODT) 4 mg Q4HR PRN ORAL Nausea & Vomiting 03/23/18 05:00 04/20/18 00:29 Pantoprazole (Protonix) 40 mg BID ORAL 03/23/18 09:00 04/20/18 08:59 03/25/18 09:31 Pregabalin (Lyrica) 75 mg BID ORAL 03/23/18 09:00 04/20/18 08:59 03/25/18 09:31 Sevelamer Carbonate (Renvela) 2,400 mg TIPC ORAL 03/23/18 09:00 04/20/18 08:59 03/25/18 09:31 Tramadol HCl (Ultram) 50 mg DAILY PRN ORAL pain 03/23/18 09:00 03/28/18 01:59 Trazodone HCl (Desyrel) 50 mg BEDTIME ORAL 03/25/18 21:00 04/24/18 20:59 Vitamin B Complex/ Vit C/Folic Acid (Nephrovite) 1 tab DAILY ORAL 03/23/18 09:00 04/20/18 08:59 03/25/18 09:31 Zolpidem Tartrate (Ambien) 5 mg BEDTIME PRN ORAL Insomnia 03/23/18 21:00 03/28/18 00:29 03/25/18 02:37 Bailee Shaw MD Mar 25, 2018 14:59
--- NOTE | 2018-03-25 15:19 | NUR ---
NURSE NOTES: DR OSULLIVAN AT BEDSIDE AND ASKS RN IF PT CAN BE DISCHARGE. RN MADE DR OSULLIVAN AWARE SHE HAS BEEN IN BED ALL DAY AND ALERT TO NAME ONLY. RN RECOMMENDED RETAIL LOSS PREVENTION INVESTIGATOR CONSULT ORDER FOR HOME SAFETY. DR OSULLIVAN AGREED. RN MADE WILMAR TAX COMPLIANCE MANAGER AWARE OF ORDER.
--- NOTE | 2018-03-25 15:47 | NUR ---
Social Service Note SW spoke with patient's dgt Donovandenzel Kay [phone] to obtained history. Prior to admission patient was living independently at home. Patient's son would visit often after work and dgt would speak with patient regularly on the phone. Patient able to ambulate without DME. Patient goes to [facility] [phone] (p) [address] [facility], M-W-F chair time 4pm, transportation arrangement with [employer] [phone]. Due to patient's level of care at this time, dgt is in agreement with short term placement at [facility] [phone]. Dgt to be notified of transfer time. CM coordinator to secure bed. Will monitor and assist as needed.
[2018-03-25 15:56] VITALS: BP 147/75
--- NOTE | 2018-03-25 17:09 | NUR ---
*-* DISCHARGED PLANNED *-* PATIENT IS DISCAHRGED TO: [facility] ROOM# 21-C SKILLED T:[phone] FOR NURSE TO NURSE REPORT [facility] HAS BEEN ARRANGED FOR FUN HOUSE OPERATOR AT [address] [id number]
--- NOTE | 2018-03-25 17:25 | NUR ---
*-* DISCHARGE PLANNED *-* PATIENT DISCHARGE TO: [facility] ROOM# 21- SKILLED T:[phone] FOR NURSE TO NURSE REPORT [facility] HAS BEEN ARRANGED FOR NURSE CONSULTANT AT [address] [id number]
[2018-03-25] MEDS ORDERED: COLACE100 MG ORAL (18:05)
[2018-03-25] MEDS ORDERED: ASPIRIN325 MG ORAL (18:05)
[2018-03-25] MEDS ORDERED: LYRICA75 M1 ORAL (18:06)
[2018-03-25] MEDS ORDERED: NEPHROVITE1 TAB ORAL (18:06)
[2018-03-25] MEDS ORDERED: PROTONIX40 MG ORAL (18:06)
[2018-03-25] MEDS ORDERED: NORMODYNE300 MG ORAL (18:06)
[2018-03-25] MEDS ORDERED: RENVELA2.4 GM ORAL (18:07)
[2018-03-25] MEDS ORDERED: SYNTHROID88 MCG ORAL (18:07)
[2018-03-25] MEDS ORDERED: NORVASC2.5 MG ORAL (18:07)
[2018-03-25] MEDS ORDERED: NOVOLOG100 UNITS1 (18:07)
[2018-03-25] MEDS ORDERED: CALCIUM ACETAT667 MG PO (18:08)
[2018-03-25] MEDS ORDERED: CLONIDINE HCL0.1 MG PO (18:08)
[2018-03-25] MEDS ORDERED: ZOLPIDEM TARTRAT5 MG ORAL (18:09)
[2018-03-25] MEDS ORDERED: DOXAZOSIN MESYLA4 MG ORAL (18:09)
[2018-03-25] MEDS ORDERED: TRAZODONE HCL150 MG ORAL (18:09)
[2018-03-25] MEDS ORDERED: ZOFRAN4 M3 ORAL (18:10)
[2018-03-25] MEDS ORDERED: IBUPROFEN600 MG ORAL (18:10)
[2018-03-25] MEDS ORDERED: HYDRALAZINE HCL25 M1 ORAL (18:11)
[2018-03-25] MEDS ORDERED: DUONEB 0.5-3(2.53 ML HHN (18:11)
--- NOTE | 2018-03-25 18:13 | Cardiology Progress Note ---
Assessment/Plan Assessment/Plan 1. Chest pain likely musculoskeletal chest wall syndrome. 2. End-stage renal disease, on hemodialysis. 3. History of cirrhosis. 4. History of tobacco use disorder. 5. History of diastolic heart failure. 6. Diabetes mellitus. 7. Anemia of chronic disease. repeat trop neg ekg neg echo neg no further cardaic ortiz at this time rn report low bp will dc norvasc and if needed will decreaswe the clonidine as well bp seem variable mroe awake chest wall [id number] Subjective Cardiovascular: Reports: chest pain Respiratory: Reports: shortness of breath Gastrointestinal/Abdominal: Reports: abdominal pain Genitourinary: Denies: burning Subjective awake Objective Last 24 Hour Vital Signs Date Time Temp Pulse Resp B/P (MAP) Pulse Ox O2 Delivery O2 Flow Rate FiO2 03/25/18 16:05 Nasal Cannula 03/25/18 15:56 103 20 147/75 (99) 97 03/25/18 14:00 108/92 03/25/18 12:30 Nasal Cannula 03/25/18 11:54 97.5 87 20 108/92 (97) 97 03/25/18 09:32 86 105/74 03/25/18 09:32 86 105/74 03/25/18 09:00 Nasal Cannula 2.0 03/25/18 08:11 86 20 Nasal Cannula 2.0 28 03/25/18 08:00 97.7 87 20 105/74 (84) 95 03/25/18 05:41 101/56 03/25/18 04:00 98.8 84 21 101/56 (71) 100 03/25/18 00:52 103 20 Nasal Cannula 2.0 28 03/25/18 00:21 99.1 79 19 103/76 (85) 94 03/24/18 20:40 104/56 03/24/18 20:39 83 104/56 03/24/18 20:14 99.3 83 18 104/56 (72) 94 03/24/18 20:10 Room Air General Appearance: no apparent distress, alert Neck: supple Cardiovascular: normal rate, other - chest wall tender Respiratory/Chest: crackles/rales Abdomen: normal bowel sounds, non tender, soft Extremities: no swelling Intake and Output 03/24/18 03/25/18 18:59 06:59 Intake Total 220 ml Balance 220 ml Intake Oral 220 ml # Bowel Movements 1 Laboratory Tests Test 03/25/18 04:50 White Blood Count 6.0 K/UL (4.8-10.8) Red Blood Count 2.94 M/UL (4.20-5.40) L Hemoglobin 9.8 G/DL (12.0-16.0) L Hematocrit 32.2 % (37.0-47.0) L Mean Corpuscular Volume 110 FL (80-99) H Mean Corpuscular Hemoglobin 33.4 PG (27.0-31.0) H Mean Corpuscular Hemoglobin Concent 30.5 G/DL (32.0-36.0) L Red Cell Distribution Width 18.3 % (11.6-14.8) H Platelet Count 131 K/UL (150-450) L Mean Platelet Volume 6.4 FL (6.5-10.1) L Neutrophils (%) (Auto) 66.0 % (45.0-75.0) Lymphocytes (%) (Auto) 13.4 % (20.0-45.0) L Monocytes (%) (Auto) 8.5 % (1.0-10.0) Eosinophils (%) (Auto) 10.4 % (0.0-3.0) H Basophils (%) (Auto) 1.7 % (0.0-2.0) Sodium Level 139 MMOL/L (136-145) Potassium Level 5.7 MMOL/L (3.5-5.1) H Chloride Level 104 MMOL/L (98-107) Carbon Dioxide Level 29 MMOL/L (21-32) Anion Gap 6 mmol/L (5-15) Blood Urea Nitrogen 40 mg/dL (7-18) H Creatinine 6.8 MG/DL (0.55-1.30) H Estimat Glomerular Filtration Rate 7.5 mL/min (>60) Glucose Level 110 MG/DL (74-106) H Uric Acid 4.2 MG/DL (2.6-7.2) Calcium Level 8.2 MG/DL (8.5-10.1) L Phosphorus Level 6.1 MG/DL (2.5-4.9) H Magnesium Level 2.2 MG/DL (1.8-2.4) Total Bilirubin 0.4 MG/DL (0.2-1.0) Aspartate Amino Transf (AST/SGOT) 24 U/L (15-37) Alanine Aminotransferase (ALT/SGPT) 12 U/L (12-78) Alkaline Phosphatase 98 U/L (46-116) Troponin I 0.056 ng/mL (0.000-0.056) Pro-B-Type Natriuretic Peptide 76750 pg/mL (0-125) H Total Protein 6.3 G/DL (6.4-8.2) L Albumin 2.1 G/DL (3.4-5.0) L Globulin 4.2 g/dL Albumin/Globulin Ratio 0.5 (1.0-2.7) L Kevyn Dillard MD Mar 25, 2018 18:13
--- NOTE | 2018-03-25 18:30 | NUR ---
NURSE NOTES: [facility] E[facility] 2000HRS.
--- NOTE | 2018-03-25 18:56 | Internal Med Progress Note ---
Subjective Date of Service: Mar 25, 2018 Physician Name Huerta,Adair Attending Physician Jackson Albright MD Current Medications Medications (Trade) Dose Ordered Sig/Ranjan Route PRN Reason Start Time Stop Time Status Last Admin Dose Admin Acetaminophen (Tylenol) 650 mg Q6HR PRN ORAL Mild Pain (Pain Scale 1-3) 03/23/18 06:00 04/20/18 00:29 Albuterol/ Ipratropium (Albuterol/ Ipratropium) 3 ml Q4H PRN HHN Shortness of Breath 03/23/18 08:30 03/26/18 00:29 Amlodipine Besylate (Norvasc) 2.5 mg DAILY ORAL 03/25/18 09:00 04/24/18 08:59 Aspirin (ASA) 325 mg DAILY ORAL 03/23/18 09:00 04/20/18 08:59 03/25/18 09:30 Calcium Acetate (Phoslo) 1,334 mg QHS ORAL 03/23/18 21:00 04/20/18 20:59 03/23/18 20:52 Clonidine HCl (Catapres Tab) 0.1 mg Q8HR ORAL 03/24/18 22:00 04/22/18 08:59 Dextrose (Dextrose 50%) 25 ml Q30M PRN IV Hypoglycemia 03/23/18 05:00 04/20/18 01:29 Dextrose (Dextrose 50%) 50 ml Q30M PRN IV Hypoglycemia 03/23/18 05:00 04/20/18 01:29 Diphenhydramine HCl (Benadryl) 25 mg Q8HR PRN ORAL Itching 03/23/18 06:00 04/20/18 00:29 Diphenoxylate HCl/ Atropine (Lomotil) 5 mg DAILY PRN ORAL Diarrhea 03/23/18 09:00 04/20/18 00:29 Docusate Sodium (Colace) 100 mg THREE TIMES A DAY ORAL 03/23/18 09:00 04/20/18 12:59 03/25/18 17:03 Doxazosin Mesylate (Cardura) 4 mg QHS ORAL 03/23/18 21:00 04/20/18 20:59 03/23/18 20:52 Hydralazine HCl (Apresoline) 25 mg Q4H PRN ORAL bp over 160 syst 03/23/18 07:30 3/2/19 11:29 Ibuprofen (Motrin) 600 mg Q6H PRN ORAL For Pain 03/23/18 08:00 04/20/18 01:59 Insulin Aspart (NovoLOG) BEFORE MEALS AND HS SUBQ 03/23/18 06:30 04/20/18 06:29 Labetalol HCl (Normodyne) 600 mg BID@0900,2100 ORAL 03/23/18 09:00 04/20/18 08:59 03/24/18 09:30 Levothyroxine Sodium (Synthroid) 88 mcg DAILY@0630 ORAL 03/23/18 06:30 04/20/18 06:29 03/25/18 05:42 Morphine Sulfate (Morphine Sulfate) 2 mg Q4H PRN IVP Breakthrough Pain 03/23/18 08:30 03/28/18 12:29 03/23/18 09:41 Ondansetron HCl (Zofran ODT) 4 mg Q4HR PRN ORAL Nausea & Vomiting 03/23/18 05:00 04/20/18 00:29 Pantoprazole (Protonix) 40 mg BID ORAL 03/23/18 09:00 04/20/18 08:59 03/25/18 17:02 Pregabalin (Lyrica) 75 mg BID ORAL 03/23/18 09:00 04/20/18 08:59 03/25/18 17:03 Sevelamer Carbonate (Renvela) 2,400 mg TIPC ORAL 03/23/18 09:00 04/20/18 08:59 03/25/18 17:03 Tramadol HCl (Ultram) 50 mg DAILY PRN ORAL pain 03/23/18 09:00 03/28/18 01:59 Trazodone HCl (Desyrel) 50 mg BEDTIME ORAL 03/25/18 21:00 04/24/18 20:59 Vitamin B Complex/ Vit C/Folic Acid (Nephrovite) 1 tab DAILY ORAL 03/23/18 09:00 04/20/18 08:59 03/25/18 09:31 Zolpidem Tartrate (Ambien) 5 mg BEDTIME PRN ORAL Insomnia 03/23/18 21:00 03/28/18 00:29 03/25/18 02:37 Allergies: Coded Allergies: No Known Allergies (Unverified , 09/20/15) ROS Limited/Unobtainable: No Constitutional: Reports: no symptoms HEENT: Reports: no symptoms Cardiovascular: Reports: no symptoms Respiratory: Reports: shortness of breath Gastrointestinal/Abdominal: Reports: no symptoms Genitourinary: Reports: no symptoms Neurologic/Psychiatric: Reports: no symptoms Subjective 63 YO F admitted with chief complaint of chest pain. Cover for Int Esa-dr Albright Objective Last Vital Signs Date Time Temp Pulse Resp B/P (MAP) Pulse Ox O2 Delivery O2 Flow Rate FiO2 03/25/18 16:05 Nasal Cannula 03/25/18 15:56 103 20 147/75 (99) 97 03/25/18 11:54 97.5 03/25/18 09:00 2.0 03/25/18 08:11 28 Laboratory Tests Test 03/25/18 04:50 White Blood Count 6.0 K/UL (4.8-10.8) Red Blood Count 2.94 M/UL (4.20-5.40) L Hemoglobin 9.8 G/DL (12.0-16.0) L Hematocrit 32.2 % (37.0-47.0) L Mean Corpuscular Volume 110 FL (80-99) H Mean Corpuscular Hemoglobin 33.4 PG (27.0-31.0) H Mean Corpuscular Hemoglobin Concent 30.5 G/DL (32.0-36.0) L Red Cell Distribution Width 18.3 % (11.6-14.8) H Platelet Count 131 K/UL (150-450) L Mean Platelet Volume 6.4 FL (6.5-10.1) L Neutrophils (%) (Auto) 66.0 % (45.0-75.0) Lymphocytes (%) (Auto) 13.4 % (20.0-45.0) L Monocytes (%) (Auto) 8.5 % (1.0-10.0) Eosinophils (%) (Auto) 10.4 % (0.0-3.0) H Basophils (%) (Auto) 1.7 % (0.0-2.0) Sodium Level 139 MMOL/L (136-145) Potassium Level 5.7 MMOL/L (3.5-5.1) H Chloride Level 104 MMOL/L (98-107) Carbon Dioxide Level 29 MMOL/L (21-32) Anion Gap 6 mmol/L (5-15) Blood Urea Nitrogen 40 mg/dL (7-18) H Creatinine 6.8 MG/DL (0.55-1.30) H Estimat Glomerular Filtration Rate 7.5 mL/min (>60) Glucose Level 110 MG/DL (74-106) H Uric Acid 4.2 MG/DL (2.6-7.2) Calcium Level 8.2 MG/DL (8.5-10.1) L Phosphorus Level 6.1 MG/DL (2.5-4.9) H Magnesium Level 2.2 MG/DL (1.8-2.4) Total Bilirubin 0.4 MG/DL (0.2-1.0) Aspartate Amino Transf (AST/SGOT) 24 U/L (15-37) Alanine Aminotransferase (ALT/SGPT) 12 U/L (12-78) Alkaline Phosphatase 98 U/L (46-116) Troponin I 0.056 ng/mL (0.000-0.056) Pro-B-Type Natriuretic Peptide 58836 pg/mL (0-125) H Total Protein 6.3 G/DL (6.4-8.2) L Albumin 2.1 G/DL (3.4-5.0) L Globulin 4.2 g/dL Albumin/Globulin Ratio 0.5 (1.0-2.7) L Intake and Output 03/24/18 03/25/18 19:00 07:00 Intake Total 220 ml Balance 220 ml Intake Oral 220 ml # Bowel Movements 1 Objective General Appearance: WD/WN, no apparent distress, alert EENT: PERRL/EOMI, normal ENT inspection Neck: non-tender, normal alignment, supple, normal inspection Cardiovascular: normal peripheral pulses, normal rate, regular rhythm, no gallop/murmur, no JVD Respiratory/Chest: chest wall non-tender, lungs clear, normal breath sounds, no respiratory distress, no accessory muscle use Abdomen: normal bowel sounds, non tender, soft, no organomegaly, no mass Extremities: normal range of motion Skin: normal pigmentation, warm/dry Assessment/Plan Problem List: (1) Atypical chest pain Assessment & Plan: See cardiology note. (2) Shortness of breath (3) ESRD (end stage renal disease) on dialysis Assessment & Plan: See nephrology note. Next hemodialysis 03/25/18 (4) Ataxia (5) Diabetes mellitus, type II Assessment & Plan: continue novolog sliding scale. (6) Diabetic peripheral neuropathy (7) COPD (chronic obstructive pulmonary disease) Assessment & Plan: see pulmonary note. (8) Cirrhosis of liver (9) Ascites Assessment/Plan Discharge to [facility] today Adair Huerta MD Mar 25, 2018 18:56
--- NOTE | 2018-03-25 19:23 | NUR ---
NURSE NOTES: DR OSULLIVAN WAS MADE AWARE OF NEW ORDER FOR CT STERNUM TO R/O FRACTURE. DR OSULLIVAN TO CONTINUE WITH DISCHARGE. RN ATTEMPTED TO GIVE REPORT TO NURSE ROLAN AT [facility]. PER TEACHER COUNSELOR, NURSE SUP WAS WITH PT. RN LEFT CALL BACK NUMBER AND WAITING TO GIVE REPORT. BELONGINGS REVIEWED AT BEDSIDE AND ALL BELONGINGS ACCOUNTED. KEYS IN PT'S BLACK PURSE. PT DID NOT WANT TO SIGN BELONGINGS SHEET, AND KEEPS STATING "MY MOTHER GAVE ME A JEEP. A JEEP. J-[id number]. I THINK YOU BETTER CHECK". PT DID NOT SIGN BELONGINGS SHEET. RN SPOKE TO PT'S DTG ASHLEY AND MADE AWARE OF DISCHARGE. DTG WAS ABLE TO CONVINCE PT TO GO TO SNF.
--- NOTE | 2018-03-25 19:31 | NUR ---
HAND-OFF: Report given to Haroldo RICO RN.
--- NOTE | 2018-03-25 19:40 | NUR ---
NURSE NOTES: Received patient from JEAN CARLOS Julien. Patient A&Ox1. On nasal canula 2L/min. No signs of distress or labored breathing. IV intact, patent, and saline locked. Bed in lowest position with call light in reach. Awaiting discharge.
--- NOTE | 2018-03-25 20:20 | NUR ---
NURSE NOTES: Report given to JEAN CARLOS Lynch at [facility].
[2018-03-25] MEDS ORDERED: TraZODone 50mg tab ORAL SCH (21:00)
[2018-03-25] MEDS: Doxazosin 4mg tab ORAL SCH (21:18)
[2018-03-25 21:19] VITALS: BP 119/71
[2018-03-25] MEDS: Calcium Acetate 667mg Tab ORAL SCH (21:26)
--- NOTE | 2018-03-25 21:53 | NUR ---
NURSE NOTES: Patient discharged via [facility] to [facility]. Report given to Deo SUN and Ashutosh Tamez. All belongings accounted for, IV D/C by patient, arm band removed.
[2018-03-26] MEDS ORDERED: ACETAMINOPHEN-1 EAC2 ORAL (10:09)
[2018-03-26] MEDS ORDERED: SEROQUEL50 MG ORAL (10:09)
--- NOTE | 2018-03-26 11:16 | Discharge Summary ---
Discharge Summary Discharge Summary _ DATE OF ADMISSION: 03/20/2018 DATE OF DISCHARGE: 03/25/2018 DISCHARGED BY: Dr. Albright REASON FOR ADMISSION: 63-year-old female with past medical history of hypertension, coronary artery disease with history of VA, end-stage renal disease on hemodialysis, diabetes mellitus, history of substance abuse , including EtOH tobacco use, seizure disorder, presented to emergency department due to chest discomfort and shortness of breath. Patient reported shortness of breath for the last few days. She reported nonproductive cough. She denied fever or chills. No hemoptysis, no wheezing. By paramedics, patient was started on supplemental oxygen. Upon evaluation vital signs revealed severely elevated blood pressure of 203/ 97. Patient required 15 L of simple mask to maintain pulse oximetry 100% , patient was tachycardic and tachypneic, no fever . Laboratory workup revealed no leukocytosis, hemoglobin 12.2, hematocrit 39 . Electrolytes were stable. BUN 14 , creatinine 3.3 consistent with known history of end-stage renal disease. Glucose 100. Lactic acid 0. 8. Troponin elevated- 0.087 . EKG revealed sinus rhythm , no acute ischemic changes . Chest x-ray revealed bilateral diffuse interstitial and airspace infiltrates versus edema. Probable small bilateral pleural effusion. Patient was admitted for further management. CONSULTANTS: automobile club travel counselor Dr. Dillard pulmonary Dr. Shaw rehabilitation teacher Dr. Sargent psychiatrist [facility]SE: Patient admitted to telemetry floor. Cardiology ,pulmonology, and nephrology consults were requested. Serial troponin trending down , last 2 troponin negative. EKG revealed no acute ischemic changes. Patient was ruled out for acute VA. Mill Recorder closely followed. Per cardiology , chest pain was likely musculoskeletal chest wall syndrome. Chest wall was tender on palpation. Pain management provided, and pain was eventually controlled. Echocardiogram revealed preserved ejection fraction 55-60% with right ventricular systolic pressure of 43 , consistent with moderate pulmonary hypertension. Antiplatelet therapy with aspirin was continued. Lipid panel was stable. No further cardiac workup was required at this time. Antihypertensive medication regimen was optimized as per automobile club travel counselor. Blood pressure stabilized. Clinical Rn closely followed . Hemodialysis was done as per nephrology recommendations with close monitoring of volumes , renal parameters and electrolytes. Electrolytes corrected as needed. Kayexalate provided for hyperkalemia. Blood sugar was managed with sliding scale of insulin , hemoglobin A1c 5.3. No concentrated sweets diet provided. GI prophylaxis provided. Bowel regimen instituted. Supportive care provided. Seizure precaution maintained. No evidence of seizure activity while in the hospital. Hemoglobin and hematocrit were closely monitored with goal to keep hemoglobin above 7, remained stable. Levothyroxine was continued. Patient was counseled on abstinence from smoking and ETOH . Psychiatrist followed. Psychiatric medication regimen was optimized. Reality orientation and supportive therapy provided. Placement was arranged to [facility]. Patient was stable for discharge FINAL DIAGNOSES: Acute respiratory failure, requiring mask- resolved; probably due to fluid overload Chest pain, likely due to musculoskeletal chest wall syndrome End-stage renal disease , on hemodialysis Diastolic congestive heart failure Coronary artery disease with history of VA Moderate pulmonary hypertension Diabetes mellitus History of tobacco use History of ETOH abuse Seizure disorder Hypothyroidism Liver cirrhosis Anemia of chronic disease Major depressive disorder, recurrent episode DISCHARGE MEDICATIONS: See Medication Reconciliation list. DISCHARGE INSTRUCTIONS: Patient was discharged to the intermediate facility. Follow up with medical doctor at the facility. Patti Johnston NP Mar 26, 2018 11:16
== END 2018-03-25 21:53 | DRG 313 ==
LOC: EDBD 19:30 → EMR 20:00 → EDBEDREQ 21:40 → 2E 22:19 → EDBEDREQ 23:01 → 4E 03-23 05:35
PROC: 5A1D70Z Performance of Urinary Filtration, Intermittent, Less than 6 Hours Per Day (ICD-10-PCS; principal; 2018-03-25)
DX: R07.89 Other chest pain (principal); N18.6 End stage renal disease; F33.9 Major depressive disorder, recurrent, unspecified; R18.8 Other ascites; I12.0 Hypertensive chronic kidney disease with stage 5 chronic kidney disease or end stage renal disease; Z99.2 Dependence on renal dialysis; J44.9 Chronic obstructive pulmonary disease, unspecified; K74.60 Unspecified cirrhosis of liver; E03.9 Hypothyroidism, unspecified; I48.91 Unspecified atrial fibrillation; E11.22 Type 2 diabetes mellitus with diabetic chronic kidney disease; I25.10 Atherosclerotic heart disease of native coronary artery without angina pectoris; I25.2 Old myocardial infarction; E11.42 Type 2 diabetes mellitus with diabetic polyneuropathy; R27.0 Ataxia, unspecified; D63.1 Anemia in chronic kidney disease; R07.1 Chest pain on breathing; G40.909 Epilepsy, unspecified, not intractable, without status epilepticus; Z87.891 Personal history of nicotine dependence
CPT/HCPCS: 36415; 71045; 80048; 80053; 80061; 82550; 82553; 82607; 82728; 82746; 82962; 83036; 83540; 83550; 83605; 83735; 83880; 84100; 84484; 84550; 85025; 86140; 87040; 87081; 93005; 93306; 94640; 94664; 96374; 99285; J1815; J7620

== ENCOUNTER 2018-03-26 10:01 | Inpatient (IN) | payer MEDICARE, MEDICAID ==
[~2018-03-26] VITALS: Ht 162.6 cm; Wt 116.6 kg
[2018-03-26 10:01] VITALS: BP 95/55
[~2018-03-26 10:01] MED LIST changes: +CALCIUM ACETAT667 MG PO; +CLONIDINE HCL0.1 MG PO; +COLACE100 MG ORAL; +DOXAZOSIN MESYLA4 MG ORAL; +DUONEB 0.5-3(2.53 ML HHN; +EPOGEN2000 UNIT/ SUBQ; +HYDRALAZINE HCL25 M1 ORAL; +IBUPROFEN600 MG ORAL; +LYRICA75 M1 ORAL; +NEPHROVITE1 TAB ORAL; +NORMODYNE300 MG ORAL; +NORVASC2.5 MG ORAL; +NOVOLOG100 UNITS1; +PROTONIX40 MG ORAL; +RENVELA2.4 GM ORAL; +SYNTHROID88 MCG ORAL; +TRAZODONE HCL150 MG ORAL; +VENOFER100 MG/5 M IV; +ZOFRAN4 M3 ORAL
--- NOTE | 2018-03-26 10:01 | NUR ---
ED Nurse Note: PT BROUGHT IN BY R58 FROM [facility]. AOX4. PT BROUGHT IN DUE TO HYPOTENSION. BP AT BEDSIDE 95/55. DR. CHRISTENSEN AWARE. RR22 @ 98% O2 SAT ON 3L O2 VIA NASAL CANNULA.
--- NOTE | 2018-03-26 10:05 | NUR ---
ED Nurse Note: PT STATES SHE RECEIVES DIALYSIS MWF. AV FISTULA PRESENT ON RIGHT UPPER ARM.
[2018-03-26] MEDS ORDERED: ACETAMINOPHEN-1 EAC2 ORAL (10:09)
[2018-03-26] MEDS ORDERED: SEROQUEL50 MG ORAL (10:09)
--- NOTE | 2018-03-26 10:25 | NUR ---
ED Nurse Note: XRAY AT BEDSIDE
--- NOTE | 2018-03-26 10:30 | NUR ---
ED Nurse Note: ATTEMPTS MADE TO INSERT IV LINE MADE BY PRIMARY RN. PT RESISTIVE TO CARE AND YELLING "YOU AIN'T DOING SHIT!" MULTIPLE ATTEMPTS TO EDUCATE PT ON NEED FOR INTERVENTION. PT CONTINUES TO YELL AND BE RESISTIVE TO CARE. DR. CHRISTENSEN MADE AWARE.
--- NOTE | 2018-03-26 10:45 | NUR ---
ED Nurse Note: PT REFUSES TO RECEIVE CARE FROM RN AND ONLY WANTS TO SPEAK WITH THE DOCTOR. DR. FERMIN RODRIGUEZ.
[2018-03-26 10:55] LABS: ANION GAP 6 mmol/L (5-15); BLOOD UREA NITROGEN 33 mg/dL (7-18); CALCIUM 8.3 MG/DL (8.5-10.1); CARBON DIOXIDE 29 MMOL/L (21-32); CHLORIDE 103 MMOL/L (98-107); CREATININE 5.6 MG/DL (0.55-1.30); POTASSIUM 4.9 MMOL/L (3.5-5.1); SODIUM 138 MMOL/L (136-145)
--- NOTE | 2018-03-26 10:55 | NUR ---
ED Nurse Note: DR. CHRISTENSEN AT BEDSIDE. PT STATES SHE ONLY WANTS TO BE TREATED AT [facility]. DR. CHRISTENSEN INFORMING PT THAT SHE WAS RECEIVED BY [facility] FROM [facility] AND CARE NEEDS TO BE DELIVERED BY US. PT CONTINUES TO REFUSE TREATMENT. PT WISHES TO SIGN AMA AND WILL COORDINATE TRANSPORTATION FOR HER TO BE TRANSFERRED TO [facility] SHE WISHES.
[2018-03-26 10:59] LABS: HEMATOCRIT 32.4 % (37.0-47.0); HEMOGLOBIN 9.9 G/DL (12.0-16.0); MEAN CORPUSCULAR VOLUME 109 FL (80-99); PLATELET COUNT 98 K/UL (150-450); RED BLOOD COUNT 2.97 M/UL (4.20-5.40); RED CELL DISTRIBUTION WIDTH 17.5 % (11.6-14.8); WHITE BLOOD COUNT 5.3 K/UL (4.8-10.8)
[2018-03-26 11:07] LABS: ALANINE AMINOTRANSFERASE 12 U/L (12-78); ALBUMIN 1.9 G/DL (3.4-5.0); ALBUMIN/GLOBULIN RATIO 0.4 (1.0-2.7); ALKALINE PHOSPHATASE 98 U/L (46-116); ASPARTATE AMINO TRANSFERASE 22 U/L (15-37); BILIRUBIN,TOTAL 0.3 MG/DL (0.2-1.0); CREATINE KINASE 51 U/L (26-308)
--- NOTE | 2018-03-26 11:10 | NUR ---
ED Nurse Note: PT ASKED TO CALL PT'S MOTHER. PT'S MOTHER ON PHONE WITH PT. PT CONVINCED BY MOTHER TO STAY AT [facility] AND RECEIVE TREATEMENT. PT VERBALIZES THAT SHE WILL COOPERATIVE WITH STAFF.
--- NOTE | 2018-03-26 11:21 | Diagnostic Imaging Report ---
Indication: Dyspnea Comparison: None A single view chest radiograph was obtained. Findings: Patchy interstitial alveolar densities consistent with the CHF pulmonary edema. Heart is enlarged. There is a stent in the right subclavian vein extending into the SVC. Bones are osteopenic. IMPRESSION: Congestive heart failure.
--- NOTE | 2018-03-26 11:24 | Emergency Room Report ---
History of Present Illness General Chief Complaint: General Complaint Source: Patient, Medical Record Present Illness HPI This patient presents from a [facility] facility for hypotension. The patient was discharged from [facility] yesterday. She was being treated during her stay for pneumonia. The patient has a history of end-stage renal disease and is dialysis dependent. She has many chronic medical problems to include diabetes, congestive heart failure, cirrhosis, hypertension. The patient herself has no specific complaints. 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, AMS, MJD Hx Neurological Problems: No Hx Cerebrovascular Accident: Yes - heart attack Hx Seizures: Yes Review of Systems All Other Systems: negative except mentioned in HPI Physical Exam Vital Signs Date Time Temp Pulse Resp B/P (MAP) Pulse Ox O2 Delivery O2 Flow Rate FiO2 03/26/18 09:55 98.1 65 14 85/57 92 4.0 03/26/18 10:01 Nasal Cannula Sp02 EP Interpretation: reviewed, normal General Appearance: no apparent distress, alert, GCS 15, non-toxic Head: normocephalic, atraumatic Eyes: bilateral eye normal inspection, bilateral eye PERRL ENT: hearing grossly normal, normal pharynx, no angioedema, normal voice Neck: full range of motion, supple/symm/no masses Respiratory: chest non-tender, lungs clear, normal breath sounds, no respiratory distress, no retraction, no accessory muscle use, speaking full sentences Cardiovascular #1: regular rate, rhythm, no edema Gastrointestinal: normal bowel sounds, non tender, soft, non-distended, no guarding, no rebound Rectal: deferred Musculoskeletal: non-tender Neurologic: alert, oriented x3, responsive, motor strength/tone normal, sensory intact, speech normal Psychiatric: mood/affect normal, no suicidal/homicidal ideation Skin: normal color, no rash, warm/dry, well hydrated Medical Decision Making Diagnostic Impression: Primary Impression: Hypotension Additional Impressions: Hypovolemia ESRD (end stage renal disease) ER Course This patient presents hypotensive. This is possibly secondary to hypovolemia. Possibly she was over dialyzed. Another consideration is that the patient is on too high a dose of blood pressure medication. Another consideration is infection given the patient is undergoing treatment for pneumonia with IV antibiotics. The patient's chest x-ray is consistent with congestive heart failure. Possibly this could be worsening heart failure. Regardless, the patient is admitted for further monitoring and further evaluation of her hypotension. Laboratory Tests Test 03/26/18 10:20 03/26/18 11:35 White Blood Count 5.3 K/UL (4.8-10.8) Red Blood Count 2.97 M/UL (4.20-5.40) L Hemoglobin 9.9 G/DL (12.0-16.0) L Hematocrit 32.4 % (37.0-47.0) L Mean Corpuscular Volume 109 FL (80-99) H Mean Corpuscular Hemoglobin 33.3 PG (27.0-31.0) H Mean Corpuscular Hemoglobin Concent 30.6 G/DL (32.0-36.0) L Red Cell Distribution Width 17.5 % (11.6-14.8) H Platelet Count 98 K/UL (150-450) L Mean Platelet Volume 6.2 FL (6.5-10.1) L Neutrophils (%) (Auto) % (45.0-75.0) Lymphocytes (%) (Auto) % (20.0-45.0) Monocytes (%) (Auto) % (1.0-10.0) Eosinophils (%) (Auto) % (0.0-3.0) Basophils (%) (Auto) % (0.0-2.0) Differential Total Cells Counted 100 Neutrophils % (Manual) 52 % (45-75) Lymphocytes % (Manual) 23 % (20-45) Monocytes % (Manual) 12 % (1-10) H Eosinophils % (Manual) 13 % (0-3) H Basophils % (Manual) 0 % (0-2) Band Neutrophils 0 % (0-8) Platelet Estimate Decreased L Platelet Morphology Normal Anisocytosis 1+ Macrocytosis 1+ Sodium Level 138 MMOL/L (136-145) Potassium Level 4.9 MMOL/L (3.5-5.1) Chloride Level 103 MMOL/L (98-107) Carbon Dioxide Level 29 MMOL/L (21-32) Anion Gap 6 mmol/L (5-15) Blood Urea Nitrogen 33 mg/dL (7-18) H Creatinine 5.6 MG/DL (0.55-1.30) H Estimate Glomerular Filtration Rate 9.3 mL/min (>60) Glucose Level 81 MG/DL (74-106) Lactic Acid Level 0.50 mmol/L (0.4-2.0) Calcium Level 8.3 MG/DL (8.5-10.1) L Total Bilirubin 0.3 MG/DL (0.2-1.0) Aspartate Amino Transferase (AST) 22 U/L (15-37) Alanine Aminotransferase (ALT) 12 U/L (12-78) Alkaline Phosphatase 98 U/L (46-116) Total Creatine Kinase 51 U/L (26-308) Creatine Kinase MB 1.0 NG/ML (0.0-3.6) Creatine Kinase MB Relative Index 1.9 Troponin I 0.048 ng/mL (0.000-0.056) Total Protein 6.3 G/DL (6.4-8.2) L Albumin 1.9 G/DL (3.4-5.0) L Globulin 4.4 g/dL Albumin/Globulin Ratio 0.4 (1.0-2.7) L Urine Color Pale yellow Urine Appearance Slightly cloudy Urine pH 7 (4.5-8.0) Urine Specific Pitman 1.005 (1.005-1.035) Urine Protein 3+ (NEGATIVE) H Urine Glucose (UA) Negative (NEGATIVE) Urine Ketones Negative (NEGATIVE) Urine Blood 5+ (NEGATIVE) H Urine Nitrite Negative (NEGATIVE) Urine Bilirubin Negative (NEGATIVE) Urine Urobilinogen Normal MG/DL (0.0-1.0) Urine Leukocyte Esterase 2+ (NEGATIVE) H Urine RBC 30-40 /HPF (0 - 2) H Urine WBC 5-10 /HPF (0 - 2) H Urine Squamous Epithelial Cells Few /LPF (NONE/OCC) Urine Bacteria Few /HPF (NONE) Microbiology Date/Time Source Procedure Growth Status 03/26/18 10:20 Nasal Nares Influenza Types A,B Antigen (AVTAR) - Final Complete EKG Diagnostic Results Rate: normal Rhythm: NSR ST Segments: no acute changes Rhythm Strip Diag. Results EP Interpretation: yes Rate: 60's Rhythm: NSR, no PVC's, no ectopy Chest X-Ray Diagnostic Results Chest X-Ray Diagnostic Results : Chest X-Ray Ordered: Yes # of Views/Limited/Complete: 1 View Indication: Other Interpretation: other - Diffuse patchy opacities, cardiomegaly Impression: Other - see above Last Vital Signs Date Time Temp Pulse Resp B/P (MAP) Pulse Ox O2 Delivery O2 Flow Rate FiO2 03/26/18 10:01 68 22 Nasal Cannula 3.0 03/26/18 10:01 98.3 95/55 98 Disposition: ADMITTED INPATIENT Condition: Serious Referrals: Jackson Albright MD (PCP) Kisha Lopez DO Mar 26, 2018 11:24
[2018-03-26 11:30] VITALS: BP 91/52
[2018-03-26 11:58] LABS: APPEARANCE,URINE SLIGHTLY CLOUDY; BILIRUBIN, URINE NEGATIVE (NEGATIVE); COLOR,URINE PALE YELLOW; GLUCOSE, URINE (UA) NEGATIVE (NEGATIVE); KETONES,URINE NEGATIVE (NEGATIVE); LEUKOCYTE ESTERASE ,URINE 2+ (NEGATIVE); NITRITE,URINE NEGATIVE (NEGATIVE); PH,URINE 7 (4.5-8.0); PROTEIN,URINE 3+ (NEGATIVE); UROBILINOGEN,URINE NORMAL MG/DL (0.0-1.0)
[2018-03-26 13:00] VITALS: BP 89/50
--- NOTE | 2018-03-26 13:00 | NUR ---
ED Nurse Note: PT'S BP REMAINS LOW: 89/50. DR. CHRISTENSEN AWARE. NO FURTHER ORDERS AT THIS TIME.
--- NOTE | 2018-03-26 14:13 | NUR ---
ED Nurse Note: TELE UNIT CALLED FOR PT TRANSFER. ROOM CHANGED. INSPECTOR MACHINED PARTS AND ER CN AWARE. WILL CALL BACK IN 20 MINUTES.
--- NOTE | 2018-03-26 14:34 | NUR ---
ED Nurse Note: TELE UNIT CALLED FOR PT TRANSFER. REPORT GIVEN TO JEAN CARLOS MASTERS. PT TAKEN UP TO TELE UNIT VIA GURNEY ACCOMPANIED BY PRIMARY RN AND EMT.
--- NOTE | 2018-03-26 14:40 | NUR ---
NURSE NOTES: Received telephone report from Wu EVANGELISTA. Pt. asleep but arousable. No sign of distress. No grimacing noted. IV at left hand #22g. in placed SL. Padded side rails in placed for seizure precaution. Bed in low position, locked. Call light within reach. Will cont. to monitor.
[2018-03-26 15:00] VITALS: BP 100/48
--- NOTE | 2018-03-26 15:30 | NUR ---
NURSE NOTES: Called Dr. Huerta regarding admit order. Awaiting for response.
--- NOTE | 2018-03-26 17:22 | History & Physical ---
History and Physical History & Physicial Dictated for Int Med-Dr Albright no. [id number]. Adair Huerta MD Mar 26, 2018 17:22
[2018-03-26] MEDS ORDERED: Morphine Sulfate 2mg/ml Inj IVP PRN (17:45)
[2018-03-26] MEDS ORDERED: Zolpidem 5mg tab ORAL PRN (17:45)
[2018-03-26] MEDS ORDERED: HydrALAZINE 25mg tab ORAL PRN (17:45)
[2018-03-26] MEDS ORDERED: Albuterol/Ipratropium 3ml neb HHN PRN (17:45)
[2018-03-26] MEDS ORDERED: Morphine Sulfate 4mg/ml Inj (IV/IM USE ONLY) IVP PRN (17:45)
[2018-03-26] MEDS: Docusate 100mg cap ORAL SCH (18:00)
[2018-03-26] MEDS: Renvela 800mg Pkt ORAL SCH (18:00)
--- NOTE | 2018-03-26 19:32 | NUR ---
HAND-OFF: Report given to Annie RN. Pt. remain stable.
--- NOTE | 2018-03-26 19:33 | NUR ---
NURSE NOTES: Received hand off report. Pt is stable and resting. In no acute distress. Breathing even abd unlabored on room air. IV line intact and patent. Bed in lowest position. Call light in reach. Will continue plan of care.
[2018-03-26 20:00] VITALS: BP 90/50
--- NOTE | 2018-03-26 20:15 | History and Physical Report ---
DATE OF ADMISSION: 03/26/2018 CHIEF COMPLAINT: The patient is a 63-year-old female who presents with chief complaint of low blood pressure. HISTORY OF PRESENT ILLNESS: The patient was admitted to [facility] from March 20, 2018 to March 25, 2018. Please see history and physical and discharge summary dictated at that time. The patient was admitted for pneumonia and sepsis. The patient was discharged to [facility]. According to staff at [facility], the patient had hypotension with systolic of 80. The patient was transferred to [facility]. The patient was admitted with hypotension to rule out sepsis. REVIEW OF SYSTEMS: CONSTITUTIONAL: The patient denies weight loss or weight gain. The patient denies fevers or chills. HEENT: The patient denies ear or throat pain. The patient denies headache. CARDIOVASCULAR: The patient denies palpitations or chest pain. CHEST: The patient denies wheeze or shortness of breath. ABDOMINAL: The patient denies nausea, vomiting, diarrhea, or constipation. GENITOURINARY: The patient denies dysuria or increased frequency of urination. NEUROMUSCULAR: The patient denies seizures or generalized weakness. PAST MEDICAL HISTORY: Significant for: 1. End-stage renal disease, on hemodialysis every Sunday, Sunday, and Sunday. The patient's last dialysis was March 25, 2018. 2. Diabetes type 2. 3. Diabetic peripheral neuropathy. 4. Chronic obstructive pulmonary disease. 5. Cirrhosis of the liver. 6. Ascites. PAST SURGICAL HISTORY: Significant for: 1. Arteriovenous graft for dialysis x2. 2. Current arteriovenous graft is on the right arm. 3. Lumbar diskectomy. CURRENT MEDICATIONS: 1. Amlodipine 2.5 mg p.o. daily. 2. Aspirin 325 mg p.o. daily. 3. Calcium acetate 667 mg three tablets p.o. at bedtime. 4. Clonidine 0.1 mg p.o. q.8 hours p.r.n. 5. Doxazosin 4 mg p.o. at bedtime. 6. Hydralazine 25 mg p.o. q.4 hours. 7. Ibuprofen 600 mg p.o. q.6 hours. 8. NovoLog sliding scale q.a.c. and at bedtime. 9. DuoNeb nebulized q. 4 h p.r.n. 10. Labetalol 300 mg two tablets p.o. twice daily. 11. Synthroid 0.088 mg by p.o. daily. 12. Zofran 4 mg p.o. q.4 hours. 13. Protonix 40 mg p.o. twice daily. 14. Lyrica 75 mg p.o. twice daily. 15. Seroquel 50 mg p.o. daily. 16. Renvela 2.4 g p.o. three times daily. 17. Trazodone 50 mg p.o. at bedtime 18. Ambien 5 mg p.o. at bedtime. ALLERGIES: No known drug allergies. SOCIAL HISTORY: The patient is . The patient is currently a resident of [facility]. The patient denies alcohol use. The patient admits to tobacco use of one-quarter pack per day. PHYSICAL EXAMINATION: VITAL SIGNS: Temperature 98.4, respirations 16, pulse 67, blood pressure 91/52. GENERAL: The patient is well-developed and well-nourished female, who is in pain secondary to low back pain. HEENT: Eyes, pupils are equal and responsive to light and accommodation. Extraocular movements are intact. NECK: Supple. No lymphadenopathy. CHEST: Lungs are clear to auscultation bilaterally without wheezes or rales. CARDIOVASCULAR: Regular rate. S1 and S2 are normal without murmurs, rubs, or gallops. ABDOMEN: Soft, nontender, and nondistended. Positive bowel sounds. No evidence of hepatosplenomegaly. Currently, no rebound or guarding noted. EXTREMITIES: Negative for clubbing, cyanosis, or edema. RECTAL/GENITAL: Refused. NEUROLOGIC: Cranial nerves II through XII are grossly intact without focal deficits. Motor strength is 5/5 bilaterally. Deep tendon reflexes are 2+ plantar. LABORATORY STUDIES: WBC 5.2, hemoglobin 9.9, hematocrit 32.4, platelets 98,000. Sodium 138, potassium 4.9, chloride 103, CO2 29, BUN 33, creatinine 5.6, glucose 81. Troponin 0.048. Chest x-ray was reported as patchy interstitial alveolar densities consistent with congestive heart failure. ASSESSMENT: This is a 63-year-old female. 1. Acute on chronic congestive heart failure. 2. Hypotension. 3. End-stage renal disease. 4. Diabetes type 2. 5. Diabetic peripheral neuropathy. 6. Chronic obstructive pulmonary disease. 7. Cirrhosis of the liver. 8. Ascites. 9. Hypothyroidism. TREATMENT: 1. Congestive heart failure. Cardiology consultation with Dr. Mendez. We will follow recommendation of Cardiology. 2. Hypotension. This is probably secondary to congestive heart failure. As above, a Cardiology consultation has been obtained with Dr. Mendez. 3. Ataxia. 4. End-stage renal disease. The patient's last dialysis was on March 25, 2018. Nephrology consultation has been obtained with Dr. Sargent. The patient is to receive dialysis on March,. 5. Diabetes type 2. NovoLog sliding scale has been instituted. 6. Diabetic peripheral neuropathy. Continue Lyrica as above. 7. Chronic obstructive pulmonary disease. A Pulmonary consultation obtained with Dr. Bailee Shaw. 8. Cirrhosis of the liver. 9. Ascites. 10. Hypothyroidism. Continue Synthroid as above. 11. . Continue as needed medications as above. Adair Huerta M.D. DR: Radha JOB#: [id number] CC:
[2018-03-26] MEDS ORDERED: Labetalol 200mg tab ORAL SCH (21:00)
[2018-03-26] MEDS ORDERED: TraZODone 50mg tab ORAL SCH (21:00)
[2018-03-26] MEDS ORDERED: Lyrica 75mg cap ORAL SCH (21:00)
[2018-03-26] MEDS ORDERED: Doxazosin 4mg tab ORAL SCH (21:00)
--- NOTE | 2018-03-26 21:15 | Physician Query ---
--------- THIS DOCUMENT IS A PERMANENT PART OF THE MEDICAL RECORD --------- PLEASE COMPLETE THE DOCUMENT BEFORE SIGNING Dear Dr. Sal ALVAREZ/ Shad HODGES_ Date: _03/26/18 Black And White Printer Operator/CDS Name: _NanciAshish LI Black And White Printer Operator / CDS Phone # Exercise your independent professional judgment when responding to query. Question asked do not imply a particular answer is desired/expected Clinical Documentation States: "ACUTE ON CHRONIC CONGESTIVE HEART FAILURE" - documented in H&P "Hypotension. This is probably secondary to congestive heart failure" - documented in H&P Clinical Findings Show: BNP = 10656 pg/ml Echocardiogram (03/21/18) EF 55-60% On Hemodialysis Please Clarify: Type [X] Diastolic [] Systolic [] Systolic & Diastolic (Combined) [] Left Heart failure [] Other: Etiology [] CHF due to Hypertension [] Cardiomyopathy [] Valvular Heart Disease [] Coronary Artery Disease [] Unable to determine [X] Other: ESRD-volume overload Condition Present on Admission: [X] Yes [] No []Clinically Undeterminable Please also document in your Progress Notes and/or Discharge Summary and indicate if the condition was present on admission. JAVIER ALVAREZ M.D. DATE & TIME [facility]
--- NOTE | 2018-03-26 21:51 | Consultation ---
Consult Note Consult Note asked to eval for HD This patient presents from a alf facility for hypotension. The patient was discharged from [facility] yesterday. She was being treated during her stay for pneumonia. The patient has a history of end-stage renal disease and is dialysis dependent. She has many chronic medical problems to include diabetes, congestive heart failure, cirrhosis, hypertension. The patient herself has no specific complaints. 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
[2018-03-26] MEDS: NovoLOG Insulin Flexpen SUBQ SCH (21:57)
[2018-03-26 22:26] VITALS: BP 89/48
[2018-03-27] VITALS: BP 90/50
--- NOTE | 2018-03-27 01:00 | NUR ---
HAND-OFF: Report given to JEAN CARLOS Stark.
--- NOTE | 2018-03-27 01:30 | NUR ---
NURSE NOTES: Bowman pt screaming in her room. Found pt on the floor, next to her bed, on her left side. Assessed pt for any injuries. No apparent injuries noted. Skin is intact. No change in LOC. Helped pt back to bed. Asked pt what happened, pt states, "I was picking out my poop, from my butt, and I fell". Reminded pt to use call light for assistance. Bed in lowest position, call light within reach. Will notify MD. Will monitor closely while awaiting for MD's call.
--- NOTE | 2018-03-27 01:35 | NUR ---
NURSE NOTES: patient received. patient in no acute distress at this time. patient complains of no pain at this time. patient awake and alert x2. patient fell and there is currently a sitter at bedside. Dr duran was called. left a message letting him know what occurred and asking if we can either do soft restraints or a sitter at bedside. meanwhile patient being watched closely. will continue to monitor.
[2018-03-27 04:00] VITALS: BP 101/60
[2018-03-27] MEDS: NovoLOG Insulin Flexpen SUBQ SCH ×4 (05:57→21:00)
--- NOTE | 2018-03-27 06:51 | NUR ---
NURSE NOTES: Dr. duran was called several times and several messages have been left. Tried to get either sitter or soft restraints for patient. will endorse to morning nurse. meanwhile patient being watched closely and ENVIRONMENTAL HEALTH MANAGER is sitting close to room.
[2018-03-27 07:08] LABS: BASOPHILS % (AUTO) 0.9 % (0.0-2.0); EOSINOPHILS % (AUTO) 9.1 % (0.0-3.0); HEMATOCRIT 31.9 % (37.0-47.0); HEMOGLOBIN 9.8 G/DL (12.0-16.0); MEAN CORPUSCULAR VOLUME 108 FL (80-99); MONOCYTES % (AUTO) 11.2 % (1.0-10.0); NEUTROPHILS % (AUTO) 64.7 % (45.0-75.0); PLATELET COUNT 115 K/UL (150-450); RED BLOOD COUNT 2.96 M/UL (4.20-5.40); WHITE BLOOD COUNT 5.8 K/UL (4.8-10.8)
--- NOTE | 2018-03-27 07:20 | NUR ---
NURSE NOTES: I received the patient awake and resting in bed. Patient does not display any signs of distress or SOB. Bed in the lowest position and call light within reach. I will continue to monitor the patient and implement care.
--- NOTE | 2018-03-27 07:22 | NUR ---
HAND-OFF: Report given to snehal peterson.
[2018-03-27 07:37] LABS: ANION GAP 9 mmol/L (5-15); BLOOD UREA NITROGEN 45 mg/dL (7-18); CALCIUM 8.6 MG/DL (8.5-10.1); CARBON DIOXIDE 28 MMOL/L (21-32); CHLORIDE 106 MMOL/L (98-107); CREATININE 6.6 MG/DL (0.55-1.30); POTASSIUM 4.6 MMOL/L (3.5-5.1); SODIUM 142 MMOL/L (136-145)
[2018-03-27 08:00] VITALS: BP 98/53
--- NOTE | 2018-03-27 08:33 | NUR ---
REHAB MED PT NOTE CONSULT RECEIVED, PAXTON COMPLETED, PATIENT WILL BENEFIT FROM SKILLED PT DURING STAY FOR RETURN TO [facility]. RECOMMEND SNF AT [facility]. PLAN OF CARE INITIATED. EMERITA RAGLAND PT DPT Addendum: 03/27/18 at 0833 by EMERITA RAGLAND PT Amended: Links added.
[2018-03-27] MEDS ORDERED: Labetalol 200mg tab ORAL SCH ×2 (09:00→21:00)
[2018-03-27] MEDS: Heparin 5000 units/ml inj SUBQ SCH ×2 (09:00→21:00)
[2018-03-27] MEDS: Nephrovite tab (Rena-Vite) ORAL SCH (09:20)
[2018-03-27] MEDS: Docusate 100mg cap ORAL SCH ×3 (09:20→17:23)
[2018-03-27] MEDS: Renvela 800mg Pkt ORAL SCH ×3 (09:20→17:23)
[2018-03-27 09:58] LABS: AMMONIA 29 umol/L (11-32)
--- NOTE | 2018-03-27 10:00 | NUR ---
NURSE NOTES: Called Dialysis to confirm they are aware of the patient dialysis order for today. I left a message and will await a return phone call.
[2018-03-27 10:03] LABS: ALANINE AMINOTRANSFERASE 11 U/L (12-78); ALBUMIN 2.2 G/DL (3.4-5.0); ALKALINE PHOSPHATASE 89 U/L (46-116); ASPARTATE AMINO TRANSFERASE 17 U/L (15-37); BILIRUBIN,DIRECT < 0.1 MG/DL (0.0-0.3); BILIRUBIN,TOTAL 0.3 MG/DL (0.2-1.0); GAMMA GLUTAMYL TRANSPEPTIDASE 19 U/L (5-85); PHOSPHORUS 5.3 MG/DL (2.5-4.9)
--- NOTE | 2018-03-27 10:12 | Consultation ---
History of Present Illness General Chief Complaint: General Complaint Present Illness HPI 63-year-old female who presents with chief complaint of low blood pressure. The pt was just discharged. the pt pw waxing and waning of consciousness. The pt was unable to provide hx. the pt was lethargic. the pt has episodes of agitations. the pt was attempting to come out of bed last night and fell. today the pt had a sitter asleep still drowsy and was unable to provide hx. the pt was attempting to pull out iv. Allergies: Coded Allergies: No Known Allergies (Unverified , 09/20/15) Medication History Scheduled Amlodipine Besylate (Norvasc), 2.5 MG ORAL DAILY, (Reported) Aspirin* (Aspirin*), 325 MG ORAL DAILY, (Reported) Calcium Acetate (Calcium Acetate), 1,334 MG PO QHS, (Reported) Clonidine Hcl (Clonidine Hcl), 0.1 MG PO Q8HR, (Reported) Docusate Sodium* (Colace*), 100 MG ORAL THREE TIMES A DAY, (Reported) Doxazosin Mesylate* (Doxazosin Mesylate*), 4 MG ORAL QHS, (Reported) Insulin Aspart (Novolog Flexpen), AC+HS, (Reported) Labetalol HCl (Labetalol HCl), 600 MG ORAL EVERY 12 HOURS, (Reported) Levothyroxine Sodium* (Synthroid*), 88 MCG ORAL DAILY, (Reported) Pantoprazole* (Protonix*), 40 MG ORAL EVERY 12 HOURS, (Reported) Pregabalin* (Lyrica*), 75 MG ORAL Q12HR, (Reported) Quetiapine Fumarate (Seroquel), 50 MG ORAL DAILY, (Reported) Sevelamer Carbonate* (Renvela*), 2,400 MG ORAL THREE TIMES A DAY, (Reported) Trazodone* (Trazodone*), 50 MG ORAL BEDTIME, (Reported) Vitamin B Cmplx/Vit C/Folic AC (Nephro-Vahid Tablet), 1 TAB ORAL DAILY, (Reported ) Scheduled PRN Acetaminophen With Codeine (T#4) (Tylenol #4 Tab*), 1 TAB ORAL Q6H PRN for For Pain, (Reported) Hydralazine Hcl* (Hydralazine Hcl*), 25 MG ORAL Q4HR PRN for sbp>160, (Reported) Ibuprofen* (Motrin*), 600 MG ORAL Q6H PRN for For Pain, (Reported) Ipratropium/Albuterol Sulfate (DuoNeb 0.5-3(2.5)mg/3ml), 3 ML HHN Q4HR PRN for Shortness of Breath, (Reported) Ondansetron* (Zofran*), 4 MG ORAL Q4HR PRN for Nausea & Vomiting, (Reported) Zolpidem Tartrate* (Zolpidem Tartrate*), 5 MG ORAL BEDTIME PRN for Insomnia, ( Reported) Discontinued Medications Calcitriol (Rocaltrol), 0.25 MCG PO, (Reported) Discontinued Reason: MD discontinued med Calcium Carbonate/Vitamin D3 (Calcium 600 + Vit D 400 Tablet), 1 EACH PO, ( Reported) Discontinued Reason: MD discontinued med Cinacalcet Hcl (Sensipar), 90 MG PO DAILY, (Reported) Discontinued Reason: MD discontinued med Clonidine Hcl* (Catapres*), 0.1 MG ORAL EVERY 6 HOURS, (Reported) Discontinued Reason: Medication dose changed Docusate Sodium* (Docusil*), 100 MG ORAL Q12HR, (Reported) Discontinued Reason: MD discontinued med Epoetin Vikas (Procrit), 10,000 UNITS SUBQ SUN-SUN-SUN Discontinued Reason: MD discontinued med Patient History Limited by: medical condition History Provided By: Medical Record, PMD Healthcare decision maker Resuscitation status Advanced Directive on File Past Medical/Surgical History Past Medical/Surgical History: (1) Pulmonary edema (2) Elevated tumor markers (3) Hypothyroidism (4) Thrombocytopenia (5) GERD (gastroesophageal reflux disease) (6) HTN (hypertension) (7) H/O ETOH abuse (8) Malfunction of arteriovenous dialysis fistula (9) Deep venous thrombosis of axillary vein (10) Anemia (11) Ascites (12) CHF (congestive heart failure) (13) Cirrhosis of liver (14) ESRD (end stage renal disease) (15) ACS (acute coronary syndrome) (16) COPD (chronic obstructive pulmonary disease) (17) Ataxia (18) Diabetes mellitus, type II (19) Diabetic peripheral neuropathy (20) MDD (major depressive disorder), recurrent episode (21) Hypotension Review of Systems Psychiatric: Reports: anxiety, emotional problems, hallucinations Physical Exam General Appearance: lethargic - waxing and waning , confused Neurologic: disoriented, unresponsiveness, depressed affect Last 24 Hour Vital Signs Date Time Temp Pulse Resp B/P (MAP) Pulse Ox O2 Delivery O2 Flow Rate FiO2 03/27/18 09:00 Nasal Cannula 2.0 03/27/18 09:00 83 98/53 03/27/18 08:00 97.6 83 18 98/53 (68) 97 03/27/18 07:46 83 03/27/18 04:00 97.9 77 18 101/60 (74) 94 03/27/18 04:00 80 03/27/18 00:00 98.1 92 19 90/50 (63) 92 03/27/18 00:00 83 03/26/18 22:42 95 Nasal Cannula 2.0 28 03/26/18 22:41 81 20 Nasal Cannula 2.0 28 03/26/18 22:38 Nasal Cannula 2.0 28 03/26/18 22:25 98.1 03/26/18 21:00 Nasal Cannula 2.0 03/26/18 20:00 97.5 74 17 90/50 (63) 91 03/26/18 20:00 74 03/26/18 15:22 Nasal Cannula 2.0 03/26/18 15:00 97.0 73 20 100/48 (65) 92 03/26/18 14:57 73 03/26/18 14:35 98.4 71 12 107/56 96 Nasal Cannula 2.0 03/26/18 13:00 98.3 66 15 89/50 99 Nasal Cannula 3.0 03/26/18 11:30 98.4 67 16 91/52 99 Nasal Cannula 3.0 Intake and Output 03/26/18 03/27/18 19:00 07:00 Intake Total 500 ml Balance 500 ml Intake IV Total 500 ml # Voids 1 # Bowel Movements 1 Laboratory Tests Test 03/26/18 10:20 03/26/18 10:30 03/26/18 11:35 03/27/18 05:40 White Blood Count 5.3 K/UL (4.8-10.8) 5.8 K/UL (4.8-10.8) Red Blood Count 2.97 M/UL (4.20-5.40) L 2.96 M/UL (4.20-5.40) L Hemoglobin 9.9 G/DL (12.0-16.0) L 9.8 G/DL (12.0-16.0) L Hematocrit 32.4 % (37.0-47.0) L 31.9 % (37.0-47.0) L Mean Corpuscular Volume 109 FL (80-99) H 108 FL (80-99) H Mean Corpuscular Hemoglobin 33.3 PG (27.0-31.0) H 33.0 PG (27.0-31.0) H Mean Corpuscular Hemoglobin Concent 30.6 G/DL (32.0-36.0) L 30.6 G/DL (32.0-36.0) L Red Cell Distribution Width 17.5 % (11.6-14.8) H 18.0 % (11.6-14.8) H Platelet Count 98 K/UL (150-450) L 115 K/UL (150-450) L Mean Platelet Volume 6.2 FL (6.5-10.1) L 7.2 FL (6.5-10.1) Neutrophils (%) (Auto) % (45.0-75.0) 64.7 % (45.0-75.0) Lymphocytes (%) (Auto) % (20.0-45.0) 14.0 % (20.0-45.0) L Monocytes (%) (Auto) % (1.0-10.0) 11.2 % (1.0-10.0) H Eosinophils (%) (Auto) % (0.0-3.0) 9.1 % (0.0-3.0) H Basophils (%) (Auto) % (0.0-2.0) 0.9 % (0.0-2.0) Differential Total Cells Counted 100 Neutrophils % (Manual) 52 % (45-75) Lymphocytes % (Manual) 23 % (20-45) Monocytes % (Manual) 12 % (1-10) H Eosinophils % (Manual) 13 % (0-3) H Basophils % (Manual) 0 % (0-2) Band Neutrophils 0 % (0-8) Platelet Estimate Decreased L Platelet Morphology Normal Anisocytosis 1+ Macrocytosis 1+ Sodium Level 138 MMOL/L (136-145) 142 MMOL/L (136-145) Potassium Level 4.9 MMOL/L (3.5-5.1) 4.6 MMOL/L (3.5-5.1) Chloride Level 103 MMOL/L (98-107) 106 MMOL/L (98-107) Carbon Dioxide Level 29 MMOL/L (21-32) 28 MMOL/L (21-32) Anion Gap 6 mmol/L (5-15) 9 mmol/L (5-15) Blood Urea Nitrogen 33 mg/dL (7-18) H 45 mg/dL (7-18) H Creatinine 5.6 MG/DL (0.55-1.30) H 6.6 MG/DL (0.55-1.30) H Estimat Glomerular Filtration Rate 9.3 mL/min (>60) 7.8 mL/min (>60) Glucose Level 81 MG/DL (74-106) 77 MG/DL (74-106) Lactic Acid Level 0.50 mmol/L (0.4-2.0) Calcium Level 8.3 MG/DL (8.5-10.1) L 8.6 MG/DL (8.5-10.1) Total Bilirubin 0.3 MG/DL (0.2-1.0) Aspartate Amino Transf (AST/SGOT) 22 U/L (15-37) Alanine Aminotransferase (ALT/SGPT) 12 U/L (12-78) Alkaline Phosphatase 98 U/L (46-116) Total Creatine Kinase 51 U/L (26-308) Creatine Kinase MB 1.0 NG/ML (0.0-3.6) Creatine Kinase MB Relative Index 1.9 Troponin I 0.048 ng/mL (0.000-0.056) 0.041 ng/mL (0.000-0.056) Total Protein 6.3 G/DL (6.4-8.2) L Albumin 1.9 G/DL (3.4-5.0) L Globulin 4.4 g/dL Albumin/Globulin Ratio 0.4 (1.0-2.7) L Hemoglobin A1c 5.4 % (4.3-6.0) Pro-B-Type Natriuretic Peptide 55439 pg/mL (0-125) H 60350 pg/mL (0-125) H Thyroid Stimulating Hormone (TSH) 3.159 uiU/mL (0.358-3.740) Urine Color Pale yellow Urine Appearance Slightly cloudy Urine pH 7 (4.5-8.0) Urine Specific [place] 1.005 (1.005-1.035) Urine Protein 3+ (NEGATIVE) H Urine Glucose (UA) Negative (NEGATIVE) Urine Ketones Negative (NEGATIVE) Urine Blood 5+ (NEGATIVE) H Urine Nitrite Negative (NEGATIVE) Urine Bilirubin Negative (NEGATIVE) Urine Urobilinogen Normal MG/DL (0.0-1.0) Urine Leukocyte Esterase 2+ (NEGATIVE) H Urine RBC 30-40 /HPF (0 - 2) H Urine WBC 5-10 /HPF (0 - 2) H Urine Squamous Epithelial Cells Few /LPF (NONE/OCC) Urine Bacteria Few /HPF (NONE) Test 03/27/18 09:35 Phosphorus Level 5.3 MG/DL (2.5-4.9) H Magnesium Level 2.0 MG/DL (1.8-2.4) Total Bilirubin 0.3 MG/DL (0.2-1.0) Direct Bilirubin < 0.1 MG/DL (0.0-0.3) Gamma Glutamyl Transpeptidase 19 U/L (5-85) Aspartate Amino Transf (AST/SGOT) 17 U/L (15-37) Alanine Aminotransferase (ALT/SGPT) 11 U/L (12-78) L Alkaline Phosphatase 89 U/L (46-116) Ammonia 29 umol/L (11-32) Total Protein 6.2 G/DL (6.4-8.2) L Albumin 2.2 G/DL (3.4-5.0) L Microbiology Date/Time Source Procedure Growth Status 03/26/18 10:20 Nasal Nares Influenza Types A,B Antigen (AVTAR) - Final Complete Height (Feet): 5 Height (Inches): 4.00 Weight (Pounds): 154 Medications Current Medications Medications (Trade) Dose Ordered Sig/Ranjan Route PRN Reason Start Time Stop Time Status Last Admin Dose Admin Acetaminophen (Tylenol) 650 mg Q4H PRN ORAL Mild Pain (Pain Scale 1-3) 03/26/18 17:45 04/25/18 17:44 Acetaminophen (Tylenol) 650 mg Q4H PRN ORAL fever 03/26/18 17:45 04/25/18 17:44 Albuterol/ Ipratropium (Albuterol/ Ipratropium) 3 ml Q4H PRN HHN Shortness of Breath 03/26/18 17:45 03/31/18 17:44 Aspirin (ASA) 325 mg DAILY ORAL 03/27/18 09:00 04/26/18 08:59 Clonidine HCl (Catapres Tab) 0.1 mg Q4H PRN ORAL bp over 160 03/26/18 22:00 04/25/18 21:59 Dextrose (Dextrose 50%) 25 ml Q30M PRN IV Hypoglycemia 03/26/18 17:45 04/25/18 17:44 Dextrose (Dextrose 50%) 50 ml Q30M PRN IV Hypoglycemia 03/26/18 17:45 04/25/18 17:44 Diphenhydramine HCl (Benadryl) 25 mg Q6H PRN ORAL Itching/Pruritis 03/26/18 17:45 04/25/18 17:44 Docusate Sodium (Colace) 100 mg THREE TIMES A DAY ORAL 03/26/18 18:00 04/25/18 17:59 03/27/18 09:20 Heparin Sodium (Porcine) (Heparin 5000 units/ml) 5,000 units EVERY 12 HOURS SUBQ 03/27/18 09:00 04/26/18 08:59 Insulin Aspart (NovoLOG) BEFORE MEALS AND HS SUBQ 03/26/18 21:00 04/25/18 20:59 03/26/18 21:57 Labetalol HCl (Normodyne) 200 mg EVERY 12 HOURS ORAL 03/27/18 21:00 04/25/18 20:59 Levothyroxine Sodium (Synthroid) 88 mcg Q24H ORAL 03/27/18 06:30 04/26/18 06:29 03/27/18 05:57 Ondansetron HCl (Zofran) 4 mg Q4H PRN IVP Nausea & Vomiting 03/26/18 17:45 04/25/18 17:44 Ondansetron HCl (Zofran) 4 mg Q4H PRN ORAL Nausea & Vomiting 03/26/18 17:45 04/25/18 17:44 Pantoprazole (Protonix) 40 mg DAILY ORAL 03/27/18 09:00 04/26/18 08:59 03/27/18 09:19 Sevelamer Carbonate (Renvela) 2,400 mg THREE TIMES A DAY ORAL 03/26/18 18:00 04/25/18 17:59 03/27/18 09:20 Trazodone HCl (Desyrel) 50 mg BEDTIME ORAL 03/26/18 21:00 04/25/18 20:59 03/26/18 21:55 Vitamin B Complex/ Vit C/Folic Acid (Nephrovite) 1 tab DAILY ORAL 03/27/18 09:00 04/26/18 08:59 03/27/18 09:20 Zolpidem Tartrate (Ambien) 5 mg BEDTIME PRN ORAL Insomnia 03/26/18 17:45 04/02/18 17:44 Assessment/Plan Problem List: (1) Acute metabolic encephalopathy ICD Codes: G93.41 - Metabolic encephalopathy SNOMED: 99867753, 596800054 (2) H/O ETOH abuse ICD Codes: Z87.898 - Personal history of other specified conditions SNOMED: 257049453 (3) MDD (major depressive disorder), recurrent episode ICD Codes: F33.9 - Major depressive disorder, recurrent, unspecified SNOMED: 269457735 Assessment/Plan dc trazodone dc Restoril start Seroquel 25mg q6hr prn dc sitter bilat soft restraints. dw staff Eric Galan MD Mar 27, 2018 10:12
--- NOTE | 2018-03-27 11:05 | Consultation ---
History of Present Illness General Date patient seen: Mar 27, 2018 Chief Complaint: General Complaint Present Illness HPI 63 year old female with hx fo DM, HTN, ESRF on HD, cirrhosis, ETOH abuse, , just discharged from [facility] presented to ER from a shelter facility with CC of hypotension. The patient herself has no specific complaints except for generalized weakness. Allergies: Coded Allergies: No Known Allergies (Unverified , 09/20/15) Medication History Scheduled Amlodipine Besylate (Norvasc), 2.5 MG ORAL DAILY, (Reported) Aspirin* (Aspirin*), 325 MG ORAL DAILY, (Reported) Calcium Acetate (Calcium Acetate), 1,334 MG PO QHS, (Reported) Clonidine Hcl (Clonidine Hcl), 0.1 MG PO Q8HR, (Reported) Docusate Sodium* (Colace*), 100 MG ORAL THREE TIMES A DAY, (Reported) Doxazosin Mesylate* (Doxazosin Mesylate*), 4 MG ORAL QHS, (Reported) Insulin Aspart (Novolog Flexpen), AC+HS, (Reported) Labetalol HCl (Labetalol HCl), 600 MG ORAL EVERY 12 HOURS, (Reported) Levothyroxine Sodium* (Synthroid*), 88 MCG ORAL DAILY, (Reported) Pantoprazole* (Protonix*), 40 MG ORAL EVERY 12 HOURS, (Reported) Pregabalin* (Lyrica*), 75 MG ORAL Q12HR, (Reported) Quetiapine Fumarate (Seroquel), 50 MG ORAL DAILY, (Reported) Sevelamer Carbonate* (Renvela*), 2,400 MG ORAL THREE TIMES A DAY, (Reported) Trazodone* (Trazodone*), 50 MG ORAL BEDTIME, (Reported) Vitamin B Cmplx/Vit C/Folic AC (Nephro-Vahid Tablet), 1 TAB ORAL DAILY, (Reported ) Scheduled PRN Acetaminophen With Codeine (T#4) (Tylenol #4 Tab*), 1 TAB ORAL Q6H PRN for For Pain, (Reported) Hydralazine Hcl* (Hydralazine Hcl*), 25 MG ORAL Q4HR PRN for sbp>160, (Reported) Ibuprofen* (Motrin*), 600 MG ORAL Q6H PRN for For Pain, (Reported) Ipratropium/Albuterol Sulfate (DuoNeb 0.5-3(2.5)mg/3ml), 3 ML HHN Q4HR PRN for Shortness of Breath, (Reported) Ondansetron* (Zofran*), 4 MG ORAL Q4HR PRN for Nausea & Vomiting, (Reported) Zolpidem Tartrate* (Zolpidem Tartrate*), 5 MG ORAL BEDTIME PRN for Insomnia, ( Reported) Discontinued Medications Calcitriol (Rocaltrol), 0.25 MCG PO, (Reported) Discontinued Reason: MD discontinued med Calcium Carbonate/Vitamin D3 (Calcium 600 + Vit D 400 Tablet), 1 EACH PO, ( Reported) Discontinued Reason: MD discontinued med Cinacalcet Hcl (Sensipar), 90 MG PO DAILY, (Reported) Discontinued Reason: MD discontinued med Clonidine Hcl* (Catapres*), 0.1 MG ORAL EVERY 6 HOURS, (Reported) Discontinued Reason: Medication dose changed Docusate Sodium* (Docusil*), 100 MG ORAL Q12HR, (Reported) Discontinued Reason: MD discontinued med Epoetin Vikas (Procrit), 10,000 UNITS SUBQ MON-[id number]-SUN Discontinued Reason: MD discontinued med Patient History Healthcare decision maker Resuscitation status Advanced Directive on File Past Medical/Surgical History Past Medical/Surgical History: (1) Elevated tumor markers (2) Hypothyroidism (3) GERD (gastroesophageal reflux disease) (4) HTN (hypertension) (5) Ascites (6) Cirrhosis of liver (7) CHF (congestive heart failure) (8) ESRD (end stage renal disease) (9) Diabetes mellitus, type II Review of Systems All Other Systems: negative except mentioned in HPI Physical Exam General Appearance: WD/WN Lines, tubes and drains: peripheral HEENT: normocephalic, atraumatic Neck: non-tender, normal alignment Respiratory/Chest: chest wall non-tender, lungs clear Breasts: no masses Cardiovascular/Chest: normal peripheral pulses, normal rate Abdomen: normal bowel sounds Genitourinary/Rectal: normal genital exam Extremities: normal range of motion Skin Exam: normal pigmentation 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 Last 24 Hour Vital Signs Date Time Temp Pulse Resp B/P (MAP) Pulse Ox O2 Delivery O2 Flow Rate FiO2 03/27/18 09:00 Nasal Cannula 2.0 03/27/18 09:00 83 98/53 03/27/18 08:00 97.6 83 18 98/53 (68) 97 03/27/18 07:46 83 03/27/18 04:00 97.9 77 18 101/60 (74) 94 03/27/18 04:00 80 03/27/18 00:00 98.1 92 19 90/50 (63) 92 03/27/18 00:00 83 03/26/18 22:42 95 Nasal Cannula 2.0 28 03/26/18 22:41 81 20 Nasal Cannula 2.0 28 03/26/18 22:38 Nasal Cannula 2.0 28 03/26/18 22:25 98.1 03/26/18 21:00 Nasal Cannula 2.0 03/26/18 20:00 97.5 74 17 90/50 (63) 91 03/26/18 20:00 74 03/26/18 15:22 Nasal Cannula 2.0 03/26/18 15:00 97.0 73 20 100/48 (65) 92 03/26/18 14:57 73 03/26/18 14:35 98.4 71 12 107/56 96 Nasal Cannula 2.0 03/26/18 13:00 98.3 66 15 89/50 99 Nasal Cannula 3.0 03/26/18 11:30 98.4 67 16 91/52 99 Nasal Cannula 3.0 Intake and Output 03/26/18 03/27/18 19:00 07:00 Intake Total 500 ml Balance 500 ml Intake IV Total 500 ml # Voids 1 # Bowel Movements 1 Laboratory Tests Test 03/26/18 11:35 03/27/18 05:40 03/27/18 09:35 Urine Color Pale yellow Urine Appearance Slightly cloudy Urine pH 7 (4.5-8.0) Urine Specific [place] 1.005 (1.005-1.035) Urine Protein 3+ (NEGATIVE) H Urine Glucose (UA) Negative (NEGATIVE) Urine Ketones Negative (NEGATIVE) Urine Blood 5+ (NEGATIVE) H Urine Nitrite Negative (NEGATIVE) Urine Bilirubin Negative (NEGATIVE) Urine Urobilinogen Normal MG/DL (0.0-1.0) Urine Leukocyte Esterase 2+ (NEGATIVE) H Urine RBC 30-40 /HPF (0 - 2) H Urine WBC 5-10 /HPF (0 - 2) H Urine Squamous Epithelial Cells Few /LPF (NONE/OCC) Urine Bacteria Few /HPF (NONE) White Blood Count 5.8 K/UL (4.8-10.8) Red Blood Count 2.96 M/UL (4.20-5.40) L Hemoglobin 9.8 G/DL (12.0-16.0) L Hematocrit 31.9 % (37.0-47.0) L Mean Corpuscular Volume 108 FL (80-99) H Mean Corpuscular Hemoglobin 33.0 PG (27.0-31.0) H Mean Corpuscular Hemoglobin Concent 30.6 G/DL (32.0-36.0) L Red Cell Distribution Width 18.0 % (11.6-14.8) H Platelet Count 115 K/UL (150-450) L Mean Platelet Volume 7.2 FL (6.5-10.1) Neutrophils (%) (Auto) 64.7 % (45.0-75.0) Lymphocytes (%) (Auto) 14.0 % (20.0-45.0) L Monocytes (%) (Auto) 11.2 % (1.0-10.0) H Eosinophils (%) (Auto) 9.1 % (0.0-3.0) H Basophils (%) (Auto) 0.9 % (0.0-2.0) Sodium Level 142 MMOL/L (136-145) Potassium Level 4.6 MMOL/L (3.5-5.1) Chloride Level 106 MMOL/L (98-107) Carbon Dioxide Level 28 MMOL/L (21-32) Anion Gap 9 mmol/L (5-15) Blood Urea Nitrogen 45 mg/dL (7-18) H Creatinine 6.6 MG/DL (0.55-1.30) H Estimat Glomerular Filtration Rate 7.8 mL/min (>60) Glucose Level 77 MG/DL (74-106) Calcium Level 8.6 MG/DL (8.5-10.1) Troponin I 0.041 ng/mL (0.000-0.056) Pro-B-Type Natriuretic Peptide 86575 pg/mL (0-125) H Phosphorus Level 5.3 MG/DL (2.5-4.9) H Magnesium Level 2.0 MG/DL (1.8-2.4) Total Bilirubin 0.3 MG/DL (0.2-1.0) Direct Bilirubin < 0.1 MG/DL (0.0-0.3) Gamma Glutamyl Transpeptidase 19 U/L (5-85) Aspartate Amino Transf (AST/SGOT) 17 U/L (15-37) Alanine Aminotransferase (ALT/SGPT) 11 U/L (12-78) L Alkaline Phosphatase 89 U/L (46-116) Ammonia 29 umol/L (11-32) Total Protein 6.2 G/DL (6.4-8.2) L Albumin 2.2 G/DL (3.4-5.0) L Height (Feet): 5 Height (Inches): 4.00 Weight (Pounds): 154 Medications Current Medications Medications (Trade) Dose Ordered Sig/Ranjan Route PRN Reason Start Time Stop Time Status Last Admin Dose Admin Acetaminophen (Tylenol) 650 mg Q4H PRN ORAL Mild Pain (Pain Scale 1-3) 03/26/18 17:45 04/25/18 17:44 Acetaminophen (Tylenol) 650 mg Q4H PRN ORAL fever 03/26/18 17:45 04/25/18 17:44 Albuterol/ Ipratropium (Albuterol/ Ipratropium) 3 ml Q4H PRN HHN Shortness of Breath 03/26/18 17:45 03/31/18 17:44 Aspirin (ASA) 325 mg DAILY ORAL 03/27/18 09:00 04/26/18 08:59 Clonidine HCl (Catapres Tab) 0.1 mg Q4H PRN ORAL bp over 160 03/26/18 22:00 04/25/18 21:59 Dextrose (Dextrose 50%) 25 ml Q30M PRN IV Hypoglycemia 03/26/18 17:45 04/25/18 17:44 Dextrose (Dextrose 50%) 50 ml Q30M PRN IV Hypoglycemia 03/26/18 17:45 04/25/18 17:44 Diphenhydramine HCl (Benadryl) 25 mg Q6H PRN ORAL Itching/Pruritis 03/26/18 17:45 04/25/18 17:44 Docusate Sodium (Colace) 100 mg THREE TIMES A DAY ORAL 03/26/18 18:00 04/25/18 17:59 03/27/18 09:20 Heparin Sodium (Porcine) (Heparin 5000 units/ml) 5,000 units EVERY 12 HOURS SUBQ 03/27/18 09:00 04/26/18 08:59 Insulin Aspart (NovoLOG) BEFORE MEALS AND HS SUBQ 03/26/18 21:00 04/25/18 20:59 03/26/18 21:57 Labetalol HCl (Normodyne) 200 mg EVERY 12 HOURS ORAL 03/27/18 21:00 04/25/18 20:59 Levothyroxine Sodium (Synthroid) 88 mcg Q24H ORAL 03/27/18 06:30 04/26/18 06:29 03/27/18 05:57 Ondansetron HCl (Zofran) 4 mg Q4H PRN IVP Nausea & Vomiting 03/26/18 17:45 04/25/18 17:44 Ondansetron HCl (Zofran) 4 mg Q4H PRN ORAL Nausea & Vomiting 03/26/18 17:45 04/25/18 17:44 Pantoprazole (Protonix) 40 mg DAILY ORAL 03/27/18 09:00 04/26/18 08:59 03/27/18 09:19 Quetiapine Fumarate (SEROquel) 25 mg Q6H PRN ORAL For Anxiety 03/27/18 10:15 04/26/18 10:14 Sevelamer Carbonate (Renvela) 2,400 mg THREE TIMES A DAY ORAL 03/26/18 18:00 04/25/18 17:59 03/27/18 09:20 Vitamin B Complex/ Vit C/Folic Acid (Nephrovite) 1 tab DAILY ORAL 03/27/18 09:00 04/26/18 08:59 03/27/18 09:20 Assessment/Plan Problem List: (1) Hypotension ICD Codes: I95.9 - Hypotension, unspecified SNOMED: 53619901 (2) COPD (chronic obstructive pulmonary disease) ICD Codes: J44.9 - Chronic obstructive pulmonary disease, unspecified SNOMED: 30046021 (3) ESRD (end stage renal disease) ICD Codes: N18.6 - End stage renal disease SNOMED: 47044340 (4) HTN (hypertension) ICD Codes: I10 - Essential (primary) hypertension SNOMED: 42104592 (5) Diabetes mellitus, type II ICD Codes: E11.9 - Type 2 diabetes mellitus without complications SNOMED: 10336147 (6) Hypothyroidism ICD Codes: E03.9 - Hypothyroidism, unspecified SNOMED: 21901648 (7) H/O ETOH abuse ICD Codes: Z87.898 - Personal history of other specified conditions SNOMED: 601412251 Assessment/Plan Optimize dialysis adjust cardiac meds. dc labetolol clonidine prn symptomatic treatment dvt prophylaxis stop Aspirin, Pt is on Heparin Sq Bailee Shaw MD Mar 27, 2018 11:05
[2018-03-27] MEDS ORDERED: Minoxidil 2.5mg tab ORAL PRN (11:30)
[2018-03-27 12:00] VITALS: BP 112/67
--- NOTE | 2018-03-27 12:57 | Internal Med Progress Note ---
Subjective Date of Service: Mar 27, 2018 Physician Name Adair Huerta Attending Physician Jackson Albright MD Current Medications Medications (Trade) Dose Ordered Sig/Ranjan Route PRN Reason Start Time Stop Time Status Last Admin Dose Admin Acetaminophen (Tylenol) 650 mg Q4H PRN ORAL Mild Pain (Pain Scale 1-3) 03/26/18 17:45 04/25/18 17:44 03/27/18 12:26 Acetaminophen (Tylenol) 650 mg Q4H PRN ORAL fever 03/26/18 17:45 04/25/18 17:44 Albuterol/ Ipratropium (Albuterol/ Ipratropium) 3 ml Q4H PRN HHN Shortness of Breath 03/26/18 17:45 03/31/18 17:44 Clonidine HCl (Catapres Tab) 0.1 mg Q4H PRN ORAL sbp more than 160 03/27/18 11:30 04/26/18 11:29 Dextrose (Dextrose 50%) 25 ml Q30M PRN IV Hypoglycemia 03/26/18 17:45 04/25/18 17:44 Dextrose (Dextrose 50%) 50 ml Q30M PRN IV Hypoglycemia 03/26/18 17:45 04/25/18 17:44 Diphenhydramine HCl (Benadryl) 25 mg Q6H PRN ORAL Itching/Pruritis 03/26/18 17:45 04/25/18 17:44 Docusate Sodium (Colace) 100 mg THREE TIMES A DAY ORAL 03/26/18 18:00 04/25/18 17:59 03/27/18 12:26 Heparin Sodium (Porcine) (Heparin 5000 units/ml) 5,000 units EVERY 12 HOURS SUBQ 03/27/18 09:00 04/26/18 08:59 Insulin Aspart (NovoLOG) BEFORE MEALS AND HS SUBQ 03/26/18 21:00 04/25/18 20:59 03/26/18 21:57 Levothyroxine Sodium (Synthroid) 88 mcg Q24H ORAL 03/27/18 06:30 04/26/18 06:29 03/27/18 05:57 Minoxidil (Loniten) 2.5 mg Q4H PRN ORAL sbp more than 180 03/27/18 11:30 04/26/18 11:29 Ondansetron HCl (Zofran) 4 mg Q4H PRN IVP Nausea & Vomiting 03/26/18 17:45 04/25/18 17:44 Ondansetron HCl (Zofran) 4 mg Q4H PRN ORAL Nausea & Vomiting 03/26/18 17:45 04/25/18 17:44 Pantoprazole (Protonix) 40 mg DAILY ORAL 03/27/18 09:00 04/26/18 08:59 03/27/18 09:19 Quetiapine Fumarate (SEROquel) 25 mg Q6H PRN ORAL For Anxiety 03/27/18 10:15 04/26/18 10:14 Sevelamer Carbonate (Renvela) 2,400 mg THREE TIMES A DAY ORAL 03/26/18 18:00 04/25/18 17:59 03/27/18 12:26 Vitamin B Complex/ Vit C/Folic Acid (Nephrovite) 1 tab DAILY ORAL 03/27/18 09:00 04/26/18 08:59 03/27/18 09:20 Allergies: Coded Allergies: No Known Allergies (Unverified , 09/20/15) ROS Limited/Unobtainable: No Constitutional: Reports: no symptoms HEENT: Reports: no symptoms Cardiovascular: Reports: no symptoms Respiratory: Reports: no symptoms Gastrointestinal/Abdominal: Reports: no symptoms Genitourinary: Reports: no symptoms Neurologic/Psychiatric: Reports: no symptoms Subjective 63 YO F admitted with hypotension. Now acute on chronic Bubba heart failure. Cover for Int angelica-Dr Albright.. Await cardiology consult Objective Last Vital Signs Date Time Temp Pulse Resp B/P (MAP) Pulse Ox O2 Delivery O2 Flow Rate FiO2 03/27/18 12:00 97.2 78 19 112/67 (82) 98 03/27/18 09:00 Nasal Cannula 2.0 03/26/18 22:42 28 General Appearance: WD/WN, no apparent distress, alert EENT: PERRL/EOMI, normal ENT inspection Neck: non-tender, normal alignment, supple, normal inspection Cardiovascular: normal peripheral pulses, normal rate, regular rhythm, no gallop/murmur, no JVD Respiratory/Chest: chest wall non-tender, crackles/rales, rhonchi - bilaterally , expiratory wheezing Abdomen: normal bowel sounds, non tender, soft, no organomegaly, no mass Extremities: normal range of motion, non-tender Edema: trace edema 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, no motor/sensory deficits Skin: normal pigmentation, warm/dry Laboratory Tests Test 03/27/18 05:40 03/27/18 09:35 White Blood Count 5.8 K/UL (4.8-10.8) Red Blood Count 2.96 M/UL (4.20-5.40) L Hemoglobin 9.8 G/DL (12.0-16.0) L Hematocrit 31.9 % (37.0-47.0) L Mean Corpuscular Volume 108 FL (80-99) H Mean Corpuscular Hemoglobin 33.0 PG (27.0-31.0) H Mean Corpuscular Hemoglobin Concent 30.6 G/DL (32.0-36.0) L Red Cell Distribution Width 18.0 % (11.6-14.8) H Platelet Count 115 K/UL (150-450) L Mean Platelet Volume 7.2 FL (6.5-10.1) Neutrophils (%) (Auto) 64.7 % (45.0-75.0) Lymphocytes (%) (Auto) 14.0 % (20.0-45.0) L Monocytes (%) (Auto) 11.2 % (1.0-10.0) H Eosinophils (%) (Auto) 9.1 % (0.0-3.0) H Basophils (%) (Auto) 0.9 % (0.0-2.0) Sodium Level 142 MMOL/L (136-145) Potassium Level 4.6 MMOL/L (3.5-5.1) Chloride Level 106 MMOL/L (98-107) Carbon Dioxide Level 28 MMOL/L (21-32) Anion Gap 9 mmol/L (5-15) Blood Urea Nitrogen 45 mg/dL (7-18) H Creatinine 6.6 MG/DL (0.55-1.30) H Estimat Glomerular Filtration Rate 7.8 mL/min (>60) Glucose Level 77 MG/DL (74-106) Calcium Level 8.6 MG/DL (8.5-10.1) Troponin I 0.041 ng/mL (0.000-0.056) Pro-B-Type Natriuretic Peptide 58292 pg/mL (0-125) H Phosphorus Level 5.3 MG/DL (2.5-4.9) H Magnesium Level 2.0 MG/DL (1.8-2.4) Total Bilirubin 0.3 MG/DL (0.2-1.0) Direct Bilirubin < 0.1 MG/DL (0.0-0.3) Gamma Glutamyl Transpeptidase 19 U/L (5-85) Aspartate Amino Transf (AST/SGOT) 17 U/L (15-37) Alanine Aminotransferase (ALT/SGPT) 11 U/L (12-78) L Alkaline Phosphatase 89 U/L (46-116) Ammonia 29 umol/L (11-32) Total Protein 6.2 G/DL (6.4-8.2) L Albumin 2.2 G/DL (3.4-5.0) L Microbiology Date/Time Source Procedure Growth Status 03/26/18 10:20 Nasal Nares Influenza Types A,B Antigen (AVTAR) - Final Complete Intake and Output 03/26/18 03/27/18 19:00 07:00 Intake Total 500 ml Balance 500 ml Intake IV Total 500 ml # Voids 1 # Bowel Movements 1 Assessment/Plan Problem List: (1) Atypical chest pain (2) CHF (congestive heart failure) Assessment & Plan: Acute on chronic. Previous echo LVEF=55%. Await cardiology consult (3) Hypotension Assessment & Plan: Resolving. Gentle hydration (4) ESRD (end stage renal disease) Assessment & Plan: Dialysis per nephrology (5) Diabetes mellitus, type II Assessment & Plan: Continue novolog sliding scale (6) Diabetic peripheral neuropathy (7) Cirrhosis of liver (8) Hypothyroidism Assessment & Plan: TSH normal. Continue syntrhoid (9) COPD (chronic obstructive pulmonary disease) (10) Ascites Status: not improved Adair Huerta MD Mar 27, 2018 12:57
--- NOTE | 2018-03-27 13:45 | NUR ---
NURSE NOTES: RN called Elvie from Dialysis to confirm she is aware of patient's dialysis order for today.
--- NOTE | 2018-03-27 14:57 | NUR ---
NURSE NOTES: [facility] aware of dialysis order
[2018-03-27 16:00] VITALS: BP_SYST 188; BP_SYST 99; BP_DIAS 47; BP_DIAS 82
--- NOTE | 2018-03-27 17:47 | NUR ---
NURSE NOTES: Spoke with Elvie from dialysis and she will be here tomorrow, 03/28, to perform dialysis treatment. Elvie said she will be here at approximately 1100.
--- NOTE | 2018-03-27 18:06 | Cardiology Report ---
APPROVED REPORT EKG Measurement Heart [id number] Normal sinus rhythm Cannot rule out Anterior infarct, age undetermined Abnormal ECG
--- NOTE | 2018-03-27 19:01 | NUR ---
CASE MANAGEMENT: REVIEW 63/F BIBA FROM [facility] CC: LOW BLOOD PRESSURE SI: HYPOTENSION . HYPOVOLEMIA T 98.1 HR 65 RR 14 BP 85/57 SAT 98% NC/3L H/H 9.9/32.4 BUN 33 CR 5.6 KHUSHBOO 9.3 IS: NS IVF BOLUS X1 PATIENT ADMITTED TO TELEMETRY UNIT 03/26/2018 DCP: PATIENT IS FROM [facility]
--- NOTE | 2018-03-27 19:28 | NUR ---
HAND-OFF: Report given to JEAN CARLOS Stark.
--- NOTE | 2018-03-27 19:35 | NUR ---
NURSE NOTES: patient received. [id number] in no acute distress at this time. patient complains of no pain at this time. patient IV intact patent and asymptomatic. bed in lowest position and locked. call light within reach. bed alarm on. restraints are on and renewal was done. patient close to nurses station. will continue to monitor.
[2018-03-27 20:00] VITALS: BP 118/67
[2018-03-28] VITALS: BP 126/52
[2018-03-28 04:00] VITALS: BP 132/86
[2018-03-28] MEDS: NovoLOG Insulin Flexpen SUBQ SCH ×4 (06:30→21:00)
--- NOTE | 2018-03-28 07:16 | NUR ---
HAND-OFF: Report given to snehal peterson.
--- NOTE | 2018-03-28 07:19 | NUR ---
NURSE NOTES: I received the patient awake and resting in bed. Patient alert and oriented x2. Patient does not display any signs of distress or SOB. Bed in the lowest position and call light within reach. I will continue to monitor the patient and implement care.
[2018-03-28 08:00] VITALS: BP 158/68
[2018-03-28] MEDS: Docusate 100mg cap ORAL SCH ×3 (08:02→17:59)
[2018-03-28] MEDS: Nephrovite tab (Rena-Vite) ORAL SCH (08:03)
[2018-03-28] MEDS: Renvela 800mg Pkt ORAL SCH ×3 (08:04→17:59)
[2018-03-28] MEDS: Heparin 5000 units/ml inj SUBQ SCH ×2 (08:04→22:33)
[2018-03-28 08:25] LABS: BASOPHILS % (AUTO) 1.3 % (0.0-2.0); EOSINOPHILS % (AUTO) 10.4 % (0.0-3.0); HEMATOCRIT 29.8 % (37.0-47.0); HEMOGLOBIN 9.2 G/DL (12.0-16.0); LYMPHOCYTES % (AUTO) 16.7 % (20.0-45.0); MEAN CORPUSCULAR VOLUME 107 FL (80-99); MONOCYTES % (AUTO) 10.2 % (1.0-10.0); NEUTROPHILS % (AUTO) 61.5 % (45.0-75.0); PLATELET COUNT 124 K/UL (150-450); RED BLOOD COUNT 2.79 M/UL (4.20-5.40); RED CELL DISTRIBUTION WIDTH 17.8 % (11.6-14.8); WHITE BLOOD COUNT 5.1 K/UL (4.8-10.8)
[2018-03-28 08:56] LABS: ANION GAP 10 mmol/L (5-15); BLOOD UREA NITROGEN 55 mg/dL (7-18); CALCIUM 8.4 MG/DL (8.5-10.1); CARBON DIOXIDE 25 MMOL/L (21-32); CHLORIDE 106 MMOL/L (98-107); CREATININE 7.7 MG/DL (0.55-1.30); SODIUM 141 MMOL/L (136-145)
--- NOTE | 2018-03-28 10:43 | Pulmonology Progress Note ---
Assessment/Plan Problems: (1) Hypotension (2) COPD (chronic obstructive pulmonary disease) (3) ESRD (end stage renal disease) (4) HTN (hypertension) (5) Diabetes mellitus, type II (6) Hypothyroidism (7) H/O ETOH abuse Assessment/Plan still c/o left thigh pain, respiratory treatment check electrolytes monitor BP BP slightly higher, when pt is off BP meds. Subjective ROS Limited/Unobtainable: No Constitutional: Reports: no symptoms HEENT: Repors: no symptoms Respiratory: Reports: no symptoms Allergies: Coded Allergies: No Known Allergies (Unverified , 09/20/15) Objective Last 24 Hour Vital Signs Date Time Temp Pulse Resp B/P (MAP) Pulse Ox O2 Delivery O2 Flow Rate FiO2 03/28/18 08:34 Nasal Cannula 2.0 Nasal Cannula 2.0 03/28/18 08:00 97.6 85 20 158/68 (98) 90 03/28/18 07:19 86 03/28/18 04:00 97.9 79 17 132/86 (101) 97 03/28/18 04:00 79 03/28/18 00:00 97.7 85 18 126/52 (76) 95 03/27/18 21:00 Nasal Cannula 2.0 03/27/18 20:00 77 03/27/18 20:00 98.0 76 17 118/67 (84) 97 03/27/18 16:00 97.8 78 19 99/47 (64) 97 03/27/18 15:19 76 03/27/18 12:56 97.6 03/27/18 12:00 97.2 78 19 112/67 (82) 98 03/27/18 11:46 77 Intake and Output 03/27/18 03/28/18 19:00 07:00 # Bowel Movements 1 1 General Appearance: WD/WN, no acute distress HEENT: normocephalic, atraumatic Respiratory/Chest: chest wall non-tender, lungs clear Cardiovascular: normal peripheral pulses, normal rate Abdomen: normal bowel sounds, soft, non tender Extremities: no cyanosis Microbiology Date/Time Source Procedure Growth Status 03/26/18 10:20 Blood Blood Culture - Preliminary NO GROWTH AFTER 24 HOURS Resulted 03/26/18 10:05 Blood Blood Culture - Preliminary NO GROWTH AFTER 24 HOURS Resulted 03/26/18 10:20 Nasal Nares Influenza Types A,B Antigen (AVTAR) - Final Complete 03/26/18 14:10 Rectum VRE Culture - Final NO VANCOMYCIN RESISTANT ENTEROCOCCUS ... Complete 03/26/18 14:10 Rectum - Final NO CARBAPENEM-RESISTANT ENTEROBACTERI... Complete Laboratory Tests 03/27/18 18:00: Troponin I 0.027 03/28/18 06:52: Troponin I 0.020, White Blood Count 5.1, Red Blood Count 2.79L, Hemoglobin 9.2L , Hematocrit 29.8L, Mean Corpuscular Volume 107H, Mean Corpuscular Hemoglobin 32.8H, Mean Corpuscular Hemoglobin Concent 30.7L, Red Cell Distribution Width 17.8H, Platelet Count 124L, Mean Platelet Volume 6.6, Neutrophils (%) (Auto) 61.5, Lymphocytes (%) (Auto) 16.7L, Monocytes (%) (Auto) 10.2H, Eosinophils (%) (Auto) 10.4H, Basophils (%) (Auto) 1.3, Sodium Level 141, Potassium Level 5.0, Chloride Level 106, Carbon Dioxide Level 25, Anion Gap 10, Blood Urea Nitrogen 55H, Creatinine 7.7H, Estimat Glomerular Filtration Rate 6.4, Glucose Level 93, Calcium Level 8.4L, Pro-B-Type Natriuretic Peptide [id number] Current Medications Medications (Trade) Dose Ordered Sig/Ranjan Route PRN Reason Start Time Stop Time Status Last Admin Dose Admin Acetaminophen (Tylenol) 650 mg Q4H PRN ORAL Mild Pain (Pain Scale 1-3) 03/26/18 17:45 04/25/18 17:44 03/27/18 12:26 Acetaminophen (Tylenol) 650 mg Q4H PRN ORAL fever 03/26/18 17:45 04/25/18 17:44 Albuterol/ Ipratropium (Albuterol/ Ipratropium) 3 ml Q4H PRN HHN Shortness of Breath 03/26/18 17:45 03/31/18 17:44 Clonidine HCl (Catapres Tab) 0.1 mg Q4H PRN ORAL sbp more than 160 03/27/18 11:30 04/26/18 11:29 Dextrose (Dextrose 50%) 25 ml Q30M PRN IV Hypoglycemia 03/26/18 17:45 04/25/18 17:44 Dextrose (Dextrose 50%) 50 ml Q30M PRN IV Hypoglycemia 03/26/18 17:45 04/25/18 17:44 Diphenhydramine HCl (Benadryl) 25 mg Q6H PRN ORAL Itching/Pruritis 03/26/18 17:45 04/25/18 17:44 Docusate Sodium (Colace) 100 mg THREE TIMES A DAY ORAL 03/26/18 18:00 04/25/18 17:59 03/28/18 08:02 Heparin Sodium (Porcine) (Heparin 5000 units/ml) 5,000 units EVERY 12 HOURS SUBQ 03/27/18 09:00 04/26/18 08:59 Insulin Aspart (NovoLOG) BEFORE MEALS AND HS SUBQ 03/26/18 21:00 04/25/18 20:59 03/27/18 17:24 Levothyroxine Sodium (Synthroid) 88 mcg Q24H ORAL 03/27/18 06:30 04/26/18 06:29 03/28/18 06:01 Minoxidil (Loniten) 2.5 mg Q4H PRN ORAL sbp more than 180 03/27/18 11:30 04/26/18 11:29 Ondansetron HCl (Zofran) 4 mg Q4H PRN IVP Nausea & Vomiting 03/26/18 17:45 04/25/18 17:44 Ondansetron HCl (Zofran) 4 mg Q4H PRN ORAL Nausea & Vomiting 03/26/18 17:45 04/25/18 17:44 Pantoprazole (Protonix) 40 mg DAILY ORAL 03/27/18 09:00 04/26/18 08:59 03/28/18 08:02 Quetiapine Fumarate (SEROquel) 25 mg Q6H PRN ORAL For Anxiety 03/27/18 10:15 04/26/18 10:14 Sevelamer Carbonate (Renvela) 2,400 mg THREE TIMES A DAY ORAL 03/26/18 18:00 04/25/18 17:59 03/28/18 08:04 Vitamin B Complex/ Vit C/Folic Acid (Nephrovite) 1 tab DAILY ORAL 03/27/18 09:00 04/26/18 08:59 03/28/18 08:03 Bailee Shaw MD Mar 28, 2018 10:43
[2018-03-28 12:00] VITALS: BP 103/63
--- NOTE | 2018-03-28 13:58 | General Progress Note ---
Assessment/Plan Problem List: (1) Acute metabolic encephalopathy ICD Codes: G93.41 - Metabolic encephalopathy SNOMED: 07866273, 883851553 (2) H/O ETOH abuse ICD Codes: Z87.898 - Personal history of other specified conditions SNOMED: 078912533 (3) MDD (major depressive disorder), recurrent episode ICD Codes: F33.9 - Major depressive disorder, recurrent, unspecified SNOMED: 233466979 Status: doing well, stable, progressing Assessment/Plan start Seroquel 25mg q6hr prn bilat soft restraints. dw staff Subjective Neurologic/Psychiatric: Reports: anxiety, depressed, emotional problems Allergies: Coded Allergies: No Known Allergies (Unverified , 09/20/15) Objective Last 24 Hour Vital Signs Date Time Temp Pulse Resp B/P (MAP) Pulse Ox O2 Delivery O2 Flow Rate FiO2 03/28/18 12:00 78 20 103/63 (76) 03/28/18 11:49 97.6 03/28/18 08:34 Nasal Cannula 2.0 Nasal Cannula 2.0 03/28/18 08:00 97.6 85 20 158/68 (98) 90 03/28/18 07:19 86 03/28/18 04:00 97.9 79 17 132/86 (101) 97 03/28/18 04:00 79 03/28/18 00:00 97.7 85 18 126/52 (76) 95 03/27/18 21:00 Nasal Cannula 2.0 03/27/18 20:00 77 03/27/18 20:00 98.0 76 17 118/67 (84) 97 03/27/18 16:00 97.8 78 19 99/47 (64) 97 03/27/18 15:19 76 Intake and Output 03/27/18 03/28/18 19:00 07:00 # Bowel Movements 1 1 Laboratory Tests 03/27/18 18:00: Troponin I 0.027 03/28/18 06:52: Troponin I 0.020, White Blood Count 5.1, Red Blood Count 2.79L, Hemoglobin 9.2L , Hematocrit 29.8L, Mean Corpuscular Volume 107H, Mean Corpuscular Hemoglobin 32.8H, Mean Corpuscular Hemoglobin Concent 30.7L, Red Cell Distribution Width 17.8H, Platelet Count 124L, Mean Platelet Volume 6.6, Neutrophils (%) (Auto) 61.5, Lymphocytes (%) (Auto) 16.7L, Monocytes (%) (Auto) 10.2H, Eosinophils (%) (Auto) 10.4H, Basophils (%) (Auto) 1.3, Sodium Level 141, Potassium Level 5.0, Chloride Level 106, Carbon Dioxide Level 25, Anion Gap 10, Blood Urea Nitrogen 55H, Creatinine 7.7H, Estimat Glomerular Filtration Rate 6.4, Glucose Level 93, Calcium Level 8.4L, Pro-B-Type Natriuretic Peptide [id number] Height (Feet): 5 Height (Inches): 4.00 Weight (Pounds): 158 General Appearance: no apparent distress, alert, confused Eric Galan MD Mar 28, 2018 13:58
[2018-03-28 16:00] VITALS: BP 149/66
--- NOTE | 2018-03-28 16:09 | Nephrology Progress Note ---
Assessment/Plan Problem List: (1) ESRD (end stage renal disease) (2) Cirrhosis of liver (3) CHF (congestive heart failure) (4) Anemia (5) Diabetes mellitus, type II Assessment (1) ESRD (end stage renal disease) (2) Cirrhosis of liver, ascitis (3) Anemia (4) Diabetes (5) HTN (hypertension), presents with low BP (6) HypoThyroid (7) h/o Atrial Fib Plan hold bp meds- fluid challenge dialysis as needed: due 03/28 2D echo last admission results noted continue per psych minimize mind altering meds Subjective ROS Limited/Unobtainable: No Constitutional: Reports: weakness Objective Objective Last 24 Hour Vital Signs Date Time Temp Pulse Resp B/P (MAP) Pulse Ox O2 Delivery O2 Flow Rate FiO2 03/28/18 12:00 78 20 103/63 (76) 03/28/18 11:49 97.6 03/28/18 08:34 Nasal Cannula 2.0 Nasal Cannula 2.0 03/28/18 08:00 97.6 85 20 158/68 (98) 90 03/28/18 07:19 86 03/28/18 04:00 97.9 79 17 132/86 (101) 97 03/28/18 04:00 79 03/28/18 00:00 97.7 85 18 126/52 (76) 95 03/27/18 21:00 Nasal Cannula 2.0 03/27/18 20:00 77 03/27/18 20:00 98.0 76 17 118/67 (84) 97 Intake and Output 03/27/18 03/28/18 19:00 07:00 # Bowel Movements 1 1 Laboratory Tests 03/27/18 18:00: Troponin I 0.027 03/28/18 06:52: Troponin I 0.020, White Blood Count 5.1, Red Blood Count 2.79L, Hemoglobin 9.2L , Hematocrit 29.8L, Mean Corpuscular Volume 107H, Mean Corpuscular Hemoglobin 32.8H, Mean Corpuscular Hemoglobin Concent 30.7L, Red Cell Distribution Width 17.8H, Platelet Count 124L, Mean Platelet Volume 6.6, Neutrophils (%) (Auto) 61.5, Lymphocytes (%) (Auto) 16.7L, Monocytes (%) (Auto) 10.2H, Eosinophils (%) (Auto) 10.4H, Basophils (%) (Auto) 1.3, Sodium Level 141, Potassium Level 5.0, Chloride Level 106, Carbon Dioxide Level 25, Anion Gap 10, Blood Urea Nitrogen 55H, Creatinine 7.7H, Estimat Glomerular Filtration Rate 6.4, Glucose Level 93, Calcium Level 8.4L, Pro-B-Type Natriuretic Peptide 66133V Height (Feet): 5 Height (Inches): 4.00 Weight (Pounds): 158 General Appearance: no apparent distress Cardiovascular: normal rate Respiratory/Chest: decreased breath sounds Abdomen: soft, distended Archie Sargent MD Mar 28, 2018 16:09
--- NOTE | 2018-03-28 19:20 | Internal Med Progress Note ---
Subjective Physician Name Jackson Albright Attending Physician Jackson Albright MD Current Medications Medications (Trade) Dose Ordered Sig/Ranjan Route PRN Reason Start Time Stop Time Status Last Admin Dose Admin Acetaminophen (Tylenol) 650 mg Q4H PRN ORAL Mild Pain (Pain Scale 1-3) 03/26/18 17:45 04/25/18 17:44 03/28/18 11:19 Acetaminophen (Tylenol) 650 mg Q4H PRN ORAL fever 03/26/18 17:45 04/25/18 17:44 Albuterol/ Ipratropium (Albuterol/ Ipratropium) 3 ml Q4H PRN HHN Shortness of Breath 03/26/18 17:45 03/31/18 17:44 Clonidine HCl (Catapres Tab) 0.1 mg Q4H PRN ORAL sbp more than 160 03/27/18 11:30 04/26/18 11:29 Dextrose (Dextrose 50%) 25 ml Q30M PRN IV Hypoglycemia 03/26/18 17:45 04/25/18 17:44 Dextrose (Dextrose 50%) 50 ml Q30M PRN IV Hypoglycemia 03/26/18 17:45 04/25/18 17:44 Diphenhydramine HCl (Benadryl) 25 mg Q6H PRN ORAL Itching/Pruritis 03/26/18 17:45 04/25/18 17:44 Docusate Sodium (Colace) 100 mg THREE TIMES A DAY ORAL 03/26/18 18:00 04/25/18 17:59 03/28/18 17:59 Heparin Sodium (Porcine) (Heparin 5000 units/ml) 5,000 units EVERY 12 HOURS SUBQ 03/27/18 09:00 04/26/18 08:59 Insulin Aspart (NovoLOG) BEFORE MEALS AND HS SUBQ 03/26/18 21:00 04/25/18 20:59 03/27/18 17:24 Levothyroxine Sodium (Synthroid) 88 mcg Q24H ORAL 03/27/18 06:30 04/26/18 06:29 03/28/18 06:01 Minoxidil (Loniten) 2.5 mg Q4H PRN ORAL sbp more than 180 03/27/18 11:30 04/26/18 11:29 Ondansetron HCl (Zofran) 4 mg Q4H PRN IVP Nausea & Vomiting 03/26/18 17:45 04/25/18 17:44 Ondansetron HCl (Zofran) 4 mg Q4H PRN ORAL Nausea & Vomiting 03/26/18 17:45 04/25/18 17:44 Pantoprazole (Protonix) 40 mg DAILY ORAL 03/27/18 09:00 04/26/18 08:59 03/28/18 08:02 Quetiapine Fumarate (SEROquel) 25 mg Q6H PRN ORAL For Anxiety 03/27/18 10:15 04/26/18 10:14 03/28/18 14:25 Sevelamer Carbonate (Renvela) 2,400 mg THREE TIMES A DAY ORAL 03/26/18 18:00 04/25/18 17:59 03/28/18 17:59 Vitamin B Complex/ Vit C/Folic Acid (Nephrovite) 1 tab DAILY ORAL 03/27/18 09:00 04/26/18 08:59 03/28/18 08:03 Allergies: Coded Allergies: No Known Allergies (Unverified , 09/20/15) Subjective Awake, alert, responsive currently under dialysis, blood pressure stable Objective Last Vital Signs Date Time Temp Pulse Resp B/P (MAP) Pulse Ox O2 Delivery O2 Flow Rate FiO2 03/28/18 16:42 Nasal Cannula 2.0 28 03/28/18 16:00 97.0 87 20 149/66 (93) 97 Laboratory Tests Test 03/28/18 06:52 White Blood Count 5.1 K/UL (4.8-10.8) Red Blood Count 2.79 M/UL (4.20-5.40) L Hemoglobin 9.2 G/DL (12.0-16.0) L Hematocrit 29.8 % (37.0-47.0) L Mean Corpuscular Volume 107 FL (80-99) H Mean Corpuscular Hemoglobin 32.8 PG (27.0-31.0) H Mean Corpuscular Hemoglobin Concent 30.7 G/DL (32.0-36.0) L Red Cell Distribution Width 17.8 % (11.6-14.8) H Platelet Count 124 K/UL (150-450) L Mean Platelet Volume 6.6 FL (6.5-10.1) Neutrophils (%) (Auto) 61.5 % (45.0-75.0) Lymphocytes (%) (Auto) 16.7 % (20.0-45.0) L Monocytes (%) (Auto) 10.2 % (1.0-10.0) H Eosinophils (%) (Auto) 10.4 % (0.0-3.0) H Basophils (%) (Auto) 1.3 % (0.0-2.0) Sodium Level 141 MMOL/L (136-145) Potassium Level 5.0 MMOL/L (3.5-5.1) Chloride Level 106 MMOL/L (98-107) Carbon Dioxide Level 25 MMOL/L (21-32) Anion Gap 10 mmol/L (5-15) Blood Urea Nitrogen 55 mg/dL (7-18) H Creatinine 7.7 MG/DL (0.55-1.30) H Estimat Glomerular Filtration Rate 6.4 mL/min (>60) Glucose Level 93 MG/DL (74-106) Calcium Level 8.4 MG/DL (8.5-10.1) L Troponin I 0.020 ng/mL (0.000-0.056) Pro-B-Type Natriuretic Peptide 18134 pg/mL (0-125) H Microbiology Date/Time Source Procedure Growth Status 03/26/18 10:20 Blood Blood Culture - Preliminary NO GROWTH AFTER 24 HOURS Resulted 03/26/18 10:05 Blood Blood Culture - Preliminary NO GROWTH AFTER 24 HOURS Resulted 03/26/18 14:10 Nasal Nares MRSA Culture - Final NO METHICILLIN RESISTANT STAPH AUREUS... Complete 03/26/18 10:20 Nasal Nares Influenza Types A,B Antigen (AVTAR) - Final Complete 03/26/18 14:10 Rectum VRE Culture - Final NO VANCOMYCIN RESISTANT ENTEROCOCCUS ... Complete 03/26/18 14:10 Rectum - Final NO CARBAPENEM-RESISTANT ENTEROBACTERI... Complete Intake and Output 03/27/18 03/28/18 19:00 07:00 # Bowel Movements 1 1 Objective General: No acute distress, awake and alert HEENT: NCAT, sclera anicteric, PERRL, EOMI. Neck: Supple, no significant jugular venous distention, Lungs: Fair inspiratory effort, decreased air on the basis, no Wheeze or Rales. Heart: Regular rate and rhythm, normal S1/S2, positive systolic ejection murmur, Abdomen: soft, nontender, nondistended. Normoactive bowel sounds, although obesity. Extremities: No Cyanosis , clubbing or edema. Right upper extremity AV fistula functional. Neuro: A&O x 3, Able to move all extremities Skin: warm, no rashes or lesions. Assessment/Plan Assessment/Plan 1. Acute on chronic congestive heart failure. 2. Hypotension with history of hypertension. 3. End-stage renal disease. 4. Diabetes type 2. 5. Diabetic peripheral neuropathy. 6. Chronic obstructive pulmonary disease. 7. Cirrhosis of the liver. 8. Ascites. 9. Hypothyroidism. 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 Discharge planning to the [facility] in 1 or 2 days. Jackson Albright MD Mar 28, 2018 19:20
--- NOTE | 2018-03-28 19:29 | NUR ---
HAND-OFF: Report given to JEAN CARLOS Acharya.
--- NOTE | 2018-03-28 19:30 | NUR ---
NURSE NOTES: Received report from JEAN CARLOS Tristan. Patient in bed awake with no signs of acute distress. Respiration even and non labored on room air. No SOB. Patient pulled the IV. Patient is showing episodes of agitation and wanting to go home. No c/o pain, Call light within reach. Bed in lowest position. Will continue plan of care.
[2018-03-28 20:00] VITALS: BP 113/56
[2018-03-29] VITALS: BP 119/68
[2018-03-29 04:00] VITALS: BP 118/59
[2018-03-29] MEDS: NovoLOG Insulin Flexpen SUBQ SCH ×2 (06:14→11:30)
--- NOTE | 2018-03-29 07:30 | NUR ---
HAND-OFF: Report given to JEAN CARLOS Molina.
[2018-03-29 08:00] VITALS: BP 140/77
[2018-03-29] MEDS: Renvela 800mg Pkt ORAL SCH (08:56)
[2018-03-29] MEDS: Nephrovite tab (Rena-Vite) ORAL SCH (08:57)
[2018-03-29] MEDS: Heparin 5000 units/ml inj SUBQ SCH (08:57)
[2018-03-29] MEDS: Docusate 100mg cap ORAL SCH ×2 (09:00→13:00)
--- NOTE | 2018-03-29 11:01 | General Progress Note ---
Assessment/Plan Problem List: (1) Acute metabolic encephalopathy ICD Codes: G93.41 - Metabolic encephalopathy SNOMED: 74889484, 664858845 (2) H/O ETOH abuse ICD Codes: Z87.898 - Personal history of other specified conditions SNOMED: 320988561 (3) MDD (major depressive disorder), recurrent episode ICD Codes: F33.9 - Major depressive disorder, recurrent, unspecified SNOMED: 731851699 Status: unchanged Assessment/Plan start Seroquel 25mg q6hr prn bilat soft restraints. dw staff Subjective Neurologic/Psychiatric: Reports: anxiety, depressed, emotional problems Allergies: Coded Allergies: No Known Allergies (Unverified , 09/20/15) Objective Last 24 Hour Vital Signs Date Time Temp Pulse Resp B/P (MAP) Pulse Ox O2 Delivery O2 Flow Rate FiO2 03/29/18 09:25 Nasal Cannula 2.0 28 03/29/18 09:25 82 18 Nasal Cannula 2.0 28 03/29/18 04:00 97.7 80 20 118/59 (78) 97 03/29/18 04:00 82 03/29/18 00:00 97.8 91 18 119/68 (85) 97 03/29/18 00:00 88 03/28/18 21:00 Nasal Cannula 2.0 Nasal Cannula 2.0 03/28/18 20:32 85 18 Nasal Cannula 2.0 28 03/28/18 20:32 Nasal Cannula 2.0 28 03/28/18 20:32 96 Nasal Cannula 2.0 28 03/28/18 20:00 83 03/28/18 20:00 97.6 83 18 113/56 (75) 95 03/28/18 16:42 Nasal Cannula 2.0 28 03/28/18 16:33 Nasal Cannula 2.0 28 03/28/18 16:32 Nasal Cannula 2.0 28 03/28/18 16:00 97.0 87 20 149/66 (93) 97 03/28/18 15:42 86 03/28/18 12:00 78 20 103/63 (76) 03/28/18 11:52 80 03/28/18 11:49 97.6 Height (Feet): 5 Height (Inches): 4.00 Weight (Pounds): 257 General Appearance: alert, confused, agitated Farhadi,Pantea Mar 29, 2018 11:01
--- NOTE | 2018-03-29 11:06 | Pulmonology Progress Note ---
Assessment/Plan Problems: (1) Hypotension (2) COPD (chronic obstructive pulmonary disease) (3) ESRD (end stage renal disease) (4) HTN (hypertension) (5) Diabetes mellitus, type II (6) Hypothyroidism (7) H/O ETOH abuse Assessment/Plan BP still borderline after stopping BP meds still confused respiratory treatment check electrolytes monitor BP BP slightly higher, when pt is off BP meds. dc to [facility] Subjective ROS Limited/Unobtainable: No Constitutional: Reports: no symptoms HEENT: Repors: no symptoms Allergies: Coded Allergies: No Known Allergies (Unverified , 09/20/15) Objective Last 24 Hour Vital Signs Date Time Temp Pulse Resp B/P (MAP) Pulse Ox O2 Delivery O2 Flow Rate FiO2 03/29/18 09:25 Nasal Cannula 2.0 28 03/29/18 09:25 82 18 Nasal Cannula 2.0 28 03/29/18 04:00 97.7 80 20 118/59 (78) 97 03/29/18 04:00 82 03/29/18 00:00 97.8 91 18 119/68 (85) 97 03/29/18 00:00 88 03/28/18 21:00 Nasal Cannula 2.0 Nasal Cannula 2.0 03/28/18 20:32 85 18 Nasal Cannula 2.0 28 03/28/18 20:32 Nasal Cannula 2.0 28 03/28/18 20:32 96 Nasal Cannula 2.0 28 03/28/18 20:00 83 03/28/18 20:00 97.6 83 18 113/56 (75) 95 03/28/18 16:42 Nasal Cannula 2.0 28 03/28/18 16:33 Nasal Cannula 2.0 28 03/28/18 16:32 Nasal Cannula 2.0 28 03/28/18 16:00 97.0 87 20 149/66 (93) 97 03/28/18 15:42 86 03/28/18 12:00 78 20 103/63 (76) 03/28/18 11:52 80 03/28/18 11:49 97.6 General Appearance: WD/WN HEENT: normocephalic, atraumatic Respiratory/Chest: chest wall non-tender, lungs clear Breasts: no masses Cardiovascular: normal peripheral pulses Abdomen: normal bowel sounds, soft, non tender Genitourinary: normal external genitalia Extremities: no cyanosis Neurologic/Psychiatric: 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 Complete 03/26/18 14:10 Rectum VRE Culture - Final NO VANCOMYCIN RESISTANT ENTEROCOCCUS ... Complete 03/26/18 14:10 Rectum - Final NO CARBAPENEM-RESISTANT ENTEROBACTERI... Complete Current Medications Medications (Trade) Dose Ordered Sig/Ranjan Route PRN Reason Start Time Stop Time Status Last Admin Dose Admin Acetaminophen (Tylenol) 650 mg Q4H PRN ORAL Mild Pain (Pain Scale 1-3) 03/26/18 17:45 04/25/18 17:44 03/28/18 11:19 Acetaminophen (Tylenol) 650 mg Q4H PRN ORAL fever 03/26/18 17:45 04/25/18 17:44 Albuterol/ Ipratropium (Albuterol/ Ipratropium) 3 ml Q4H PRN HHN Shortness of Breath 03/26/18 17:45 03/31/18 17:44 Clonidine HCl (Catapres Tab) 0.1 mg Q4H PRN ORAL sbp more than 160 03/27/18 11:30 04/26/18 11:29 Dextrose (Dextrose 50%) 25 ml Q30M PRN IV Hypoglycemia 03/26/18 17:45 04/25/18 17:44 Dextrose (Dextrose 50%) 50 ml Q30M PRN IV Hypoglycemia 03/26/18 17:45 04/25/18 17:44 Diphenhydramine HCl (Benadryl) 25 mg Q6H PRN ORAL Itching/Pruritis 03/26/18 17:45 04/25/18 17:44 Docusate Sodium (Colace) 100 mg THREE TIMES A DAY ORAL 03/26/18 18:00 04/25/18 17:59 03/28/18 17:59 Heparin Sodium (Porcine) (Heparin 5000 units/ml) 5,000 units EVERY 12 HOURS SUBQ 03/27/18 09:00 04/26/18 08:59 03/28/18 22:33 Insulin Aspart (NovoLOG) BEFORE MEALS AND HS SUBQ 03/26/18 21:00 04/25/18 20:59 03/27/18 17:24 Levothyroxine Sodium (Synthroid) 88 mcg Q24H ORAL 03/27/18 06:30 04/26/18 06:29 03/29/18 06:14 Minoxidil (Loniten) 2.5 mg Q4H PRN ORAL sbp more than 180 03/27/18 11:30 04/26/18 11:29 Ondansetron HCl (Zofran) 4 mg Q4H PRN IVP Nausea & Vomiting 03/26/18 17:45 04/25/18 17:44 Ondansetron HCl (Zofran) 4 mg Q4H PRN ORAL Nausea & Vomiting 03/26/18 17:45 04/25/18 17:44 Pantoprazole (Protonix) 40 mg DAILY ORAL 03/27/18 09:00 04/26/18 08:59 03/29/18 08:56 Quetiapine Fumarate (SEROquel) 25 mg Q6H PRN ORAL For Anxiety 03/27/18 10:15 04/26/18 10:14 03/28/18 22:32 Sevelamer Carbonate (Renvela) 2,400 mg THREE TIMES A DAY ORAL 03/26/18 18:00 04/25/18 17:59 03/29/18 08:56 Vitamin B Complex/ Vit C/Folic Acid (Nephrovite) 1 tab DAILY ORAL 03/27/18 09:00 04/26/18 08:59 03/29/18 08:57 Bailee Shaw MD Mar 29, 2018 11:06
[2018-03-29 12:00] VITALS: BP 136/77
--- NOTE | 2018-03-29 12:15 | NUR ---
*-* DISCAHRGE PLANNING *-* PATIENT HAS BEEN REFERRED TO: [facility] P:[phone] F:[phone] EFAX:[phone]
[2018-03-29] MEDS ORDERED: Renvela 2400 mg pkt ORAL SCH (13:29)
--- NOTE | 2018-03-29 13:38 | NUR ---
*-* DISCHARGED PLANNED *-* PATIENT IS DISCAHRGED TO: [facility] ROOM# 24-A SKILLED T:[phone] FOR NURSE TO NURSE REPORT [facility] HAS BEEN ARRANGED FOR PICK [id number] S/W THIEN [id number]
--- NOTE | 2018-03-29 14:13 | NUR ---
RD ASSESSMENT & RECOMMENDATIONS SEE CARE ACTIVITY FOR COMPLETE ASSESSMENT DAILY ESTIMATED NEEDS: Needs based on ESRD on HD 63.6kg 30-35 kcals/kg 7898-9759 total kcals 1.2-1.8 g protein/kg 76-115 g total protein Fluid per MD, on HD NUTRITION DIAGNOSIS: Increased protein and kcal needs r/t renal dysfunction as evidenced by ESRD on HD CURRENT DIET: Renal / CCHO MED PO DIET RECOMMENDATIONS: RENAL DIET + HIGH PROTEIN SNACKS BID ADDITIONAL RECOMMENDATIONS: -CHANGE BED TO [place] FOR DAILY WTS OR OBTAIN A STANDING WEIGHT FOR ACCURATE CBW -Monitor po intake / variable at this time -Add NEPRO qdaily w/ continued variable intake (425kcal/19g prot each) .
--- NOTE | 2018-03-29 15:38 | NUR ---
NURSE NOTES: Patient discharged in stable condition accompanied by ambulance personnel. No belongings.
--- NOTE | 2018-03-29 15:41 | NUR ---
NURSE NOTES: Report given to Rosamaria at [facility].
--- NOTE | 2018-03-29 15:47 | Nephrology Progress Note ---
Assessment/Plan Problem List: (1) ESRD (end stage renal disease) (2) Cirrhosis of liver (3) CHF (congestive heart failure) (4) Anemia (5) Diabetes mellitus, type II Assessment (1) ESRD (end stage renal disease) (2) Cirrhosis of liver, ascitis (3) Anemia (4) Diabetes (5) HTN (hypertension), presents with low BP (6) HypoThyroid (7) h/o Atrial Fib Plan monitor bp meds- fluid challenge dialysis as needed: due 03/30 2D echo last admission results noted continue per psych minimize mind altering meds Subjective ROS Limited/Unobtainable: No Constitutional: Reports: malaise Objective Objective Last 24 Hour Vital Signs Date Time Temp Pulse Resp B/P (MAP) Pulse Ox O2 Delivery O2 Flow Rate FiO2 03/29/18 12:00 87 03/29/18 12:00 97.8 83 19 136/77 (96) 98 03/29/18 09:25 Nasal Cannula 2.0 28 03/29/18 09:25 82 18 Nasal Cannula 2.0 28 03/29/18 09:00 Nasal Cannula 2.0 Nasal Cannula 2.0 03/29/18 08:00 83 03/29/18 08:00 97.4 75 18 140/77 (98) 100 03/29/18 04:00 97.7 80 20 118/59 (78) 97 03/29/18 04:00 82 03/29/18 00:00 97.8 91 18 119/68 (85) 97 03/29/18 00:00 88 03/28/18 21:00 Nasal Cannula 2.0 Nasal Cannula 2.0 03/28/18 20:32 85 18 Nasal Cannula 2.0 28 03/28/18 20:32 Nasal Cannula 2.0 28 03/28/18 20:32 96 Nasal Cannula 2.0 28 03/28/18 20:00 83 03/28/18 20:00 97.6 83 18 113/56 (75) 95 03/28/18 16:42 Nasal Cannula 2.0 28 03/28/18 16:33 Nasal Cannula 2.0 28 03/28/18 16:32 Nasal Cannula 2.0 28 03/28/18 16:00 97.0 87 20 149/66 (93) 97 Height (Feet): 5 Height (Inches): 4.00 Weight (Pounds): 257 General Appearance: no apparent distress Cardiovascular: normal rate Respiratory/Chest: decreased breath sounds Abdomen: soft Archie Sargent MD Mar 29, 2018 15:47
--- NOTE | 2018-03-29 15:59 | Internal Med Progress Note ---
Subjective Physician Name Jackson Albright Attending Physician Jackson Albright MD Allergies: Coded Allergies: No Known Allergies (Unverified , 09/20/15) Subjective Awake, alert, responsive , NAD, feeling okay. Objective Last Vital Signs Date Time Temp Pulse Resp B/P (MAP) Pulse Ox O2 Delivery O2 Flow Rate FiO2 03/29/18 12:00 87 03/29/18 12:00 97.8 19 136/77 (96) 98 03/29/18 09:25 Nasal Cannula 2.0 28 Objective General: No acute distress, awake and alert HEENT: NCAT, sclera anicteric, PERRL, EOMI. Neck: Supple, no significant jugular venous distention, Lungs: Fair inspiratory effort, decreased air on the basis, no Wheeze or Rales. Heart: Regular rate and rhythm, normal S1/S2, positive systolic ejection murmur, Abdomen: soft, nontender, nondistended. Normoactive bowel sounds, although obesity. Extremities: No Cyanosis , clubbing or edema. Right upper extremity AV fistula functional. Neuro: A&O x 3, Able to move all extremities Skin: warm, no rashes or lesions. Assessment/Plan Assessment/Plan 1. Acute on chronic congestive heart failure. 2. Hypotension with history of hypertension. 3. End-stage renal disease. 4. Diabetes type 2. 5. Diabetic peripheral neuropathy. 6. Chronic obstructive pulmonary disease. 7. Cirrhosis of the liver. 8. Ascites. 9. Hypothyroidism. Plan: Continue monitoring on media promoter blood pressure closely Hemodialysis Monitor blood work as well as cultures closely CODE STATUS: full code DVT prophylaxis: heparin subcu. Discharge planning to the [facility] today. Jackson Albright MD Mar 29, 2018 15:59
--- NOTE | 2018-03-31 11:44 | Discharge Summary ---
Discharge Summary Discharge Summary _ DATE OF ADMISSION: 03/26/2018 DATE OF DISCHARGE: 03/29/2018 DISCHARGED BY: Dr. Albright REASON FOR ADMISSION: 63 years old female with past medical history of diabetes mellitus, hypertension , coronary artery disease with history of NE, congestive heart failure, COPD, GERD, end-stage renal disease on hemodialysis, was sent from [facility] for evaluation of hypotension. Upon evaluation blood pressure was 85/57. Pulse oximetry was 92% on 4 L of oxygen via nasal cannula. Chest x-ray revealed evidence of congestive heart failure. Laboratory workup revealed no leukocytosis, hemoglobin 9.9, hematocrit 32.4. BUN 33, creatinine 5.6, consistent with known history of end-stage renal disease , albumin 1.9 , lactic acid 0.5. Troponin was negative. Pro BNP 47208. EKG revealed sinus rhythm , no acute ischemic changes. Patient was admitted for further management CONSULTANTS: pulmonary Dr. Shaw tank farm operator Dr. Sargent psychiatrist HOSPITAL COURSE: Patient was admitted to telemetry floor. Antihypertensive medication regimen was optimized to use only clonidine on as- needed basis. Hemodialysis was arranged as per tank farm operator with close monitoring of volumes and cardiorenal parameters. Electrolyte were corrected as needed. Patient received few albumin boluses for blood pressure support. Serial troponin were negative. EKG revealed no acute ischemic changes. Patient was ruled out for acute NE. Echo on previous admissions revealed preserved ejection fraction of 55-60% and evidence of moderate pulmonary hypertension with right ventricular systolic pressure of 53. Hemodynamic status was closely monitored. Blood pressure stabilized , and upon discharge blood pressure 136/77. Supplemental oxygen provided as needed to keep pulse oximetry above 92%. Pulmonary toilet was provided as needed. DVT prophylaxis provided. Blood culture and influenza screen test were negative. Patient remained afebrile, no leukocytosis. Hemoglobin and hematocrit were closely monitored with goal to keep hemoglobin above 7. Patient had anemia of chronic disease due to end-stage renal disease . Prior to discharge hemoglobin 9.2 , hematocrit 29.8. Levothyroxine was continued. Mind altering medications were minimized. Psychiatrist followed and diagnosed patient with major depressive disorder with recurrent episode along with acute metabolic encephalopathy. Patient started on Seroquel on as needed basis. Reality orientation and supportive therapy provided. Pain management was addressed as needed . Bowel regimen instituted. Supportive care provided. Renvela continued. Patient clinically stabilized and was ready for transfer back to intermediate facility for continuation of care. FINAL DIAGNOSES: Hypotension COPD Acute metabolic encephalopathy End-stage renal disease, on hemodialysis History of hypertension Diabetes mellitus type 2 Hypothyroidism History of ETOH abuse. Liver cirrhosis CHF Anemia of chronic kidney disease History of atrial fibrillation Major depressive disorder, recurrent episode DISCHARGE MEDICATIONS: See Medication Reconciliation list. DISCHARGE INSTRUCTIONS: Patient was discharged to the intermediate facility. Follow up with medical doctor at the facility. I have been assigned to dictate discharge summary for this account. I was not involved in the patient's management. Patti Johnston NP Mar 31, 2018 11:44
== END 2018-03-29 15:35 | DRG 291 ==
LOC: EDBD 10:01 → EMR 10:24 → 2E 13:35 → EDBEDREQ 14:05 → 2E 03-27 14:47
PROC: 5A1D70Z Performance of Urinary Filtration, Intermittent, Less than 6 Hours Per Day (ICD-10-PCS; principal; 2018-03-28)
DX: I13.2 Hypertensive heart and chronic kidney disease with heart failure and with stage 5 chronic kidney disease, or end stage renal disease (principal); N18.6 End stage renal disease; I50.33 Acute on chronic diastolic (congestive) heart failure; G93.41 Metabolic encephalopathy; F33.9 Major depressive disorder, recurrent, unspecified; Z99.2 Dependence on renal dialysis; E11.40 Type 2 diabetes mellitus with diabetic neuropathy, unspecified; J44.9 Chronic obstructive pulmonary disease, unspecified; R27.0 Ataxia, unspecified; E11.21 Type 2 diabetes mellitus with diabetic nephropathy; Z72.0 Tobacco use; E03.9 Hypothyroidism, unspecified; Z78.1 Physical restraint status; I25.10 Atherosclerotic heart disease of native coronary artery without angina pectoris; I25.2 Old myocardial infarction; D63.1 Anemia in chronic kidney disease; I27.20 Pulmonary hypertension, unspecified; K21.9 Gastro-esophageal reflux disease without esophagitis; K70.31 Alcoholic cirrhosis of liver with ascites; F10.11 Alcohol abuse, in remission; I95.89 Other hypotension; Z79.4 Long term (current) use of insulin
CPT/HCPCS: 36415; 71045; 80048; 80053; 80076; 81003; 82140; 82550; 82553; 82962; 82977; 83036; 83605; 83735; 83880; 84100; 84443; 84484; 85007; 85025; 86710; 87040; 87081; 93005; 94664; 94760; 99285; J1815

== ENCOUNTER 2018-04-08 10:09 | Inpatient (IN) | payer MEDICARE, MEDICAID ==
[~2018-04-08] VITALS: Ht 177.8 cm; Wt 81.6 kg
[~2018-04-08 10:09] MED LIST changes: +ACETAMINOPHEN-1 EAC2 ORAL; +SEROQUEL50 MG ORAL
--- NOTE | 2018-04-08 10:13 | NUR ---
ED Nurse Note: Brought in by [facility] from [facility] due to generalized weakness and more alter than usual since this morning. Per EMS, pt normally is ambulatory and A/Ox3. Pt follows commands but does not answer questions, drowsy and lethargic. Arousal to shaking. M/W/F dialysis, last dialysis was 04/05/18. AV shunt on the right upper arm. With NC 3L/min, O2 sat of 100%.
[2018-04-08 10:15] VITALS: BP 183/75
[2018-04-08] MEDS ORDERED: TRAMADOL HCL50 MG ORAL (10:33)
[2018-04-08] MEDS ORDERED: CARVEDILOL3.125 MG ORAL (10:33)
[2018-04-08] MEDS ORDERED: NEPHROVITE1 TAB ORAL (10:33)
[2018-04-08] MEDS ORDERED: VOLTAREN100 G1 TP (10:33)
[2018-04-08 10:54] LABS: BASOPHILS % (AUTO) 1.8 % (0.0-2.0); EOSINOPHILS % (AUTO) 7.4 % (0.0-3.0); HEMATOCRIT 34.2 % (37.0-47.0); HEMOGLOBIN 10.5 G/DL (12.0-16.0); LYMPHOCYTES % (AUTO) 15.1 % (20.0-45.0); MEAN CORPUSCULAR VOLUME 107 FL (80-99); MONOCYTES % (AUTO) 6.7 % (1.0-10.0); PLATELET COUNT 272 K/UL (150-450); RED BLOOD COUNT 3.19 M/UL (4.20-5.40); RED CELL DISTRIBUTION WIDTH 18.3 % (11.6-14.8); WHITE BLOOD COUNT 7.1 K/UL (4.8-10.8)
[2018-04-08 10:55] LABS: APPEARANCE,URINE CLOUDY; BILIRUBIN, URINE NEGATIVE (NEGATIVE); COLOR,URINE PALE YELLOW; GLUCOSE, URINE (UA) NEGATIVE (NEGATIVE); KETONES,URINE NEGATIVE (NEGATIVE); LEUKOCYTE ESTERASE ,URINE 3+ (NEGATIVE); NITRITE,URINE NEGATIVE (NEGATIVE); PH,URINE 6 (4.5-8.0); PROTEIN,URINE 3+ (NEGATIVE); UROBILINOGEN,URINE NORMAL MG/DL (0.0-1.0)
[2018-04-08 10:56] LABS: ANION GAP 10 mmol/L (5-15); BLOOD UREA NITROGEN 65 mg/dL (7-18); CALCIUM 8.6 MG/DL (8.5-10.1); CARBON DIOXIDE 27 MMOL/L (21-32); CHLORIDE 100 MMOL/L (98-107); CREATININE 6.4 MG/DL (0.55-1.30); POTASSIUM 5.5 MMOL/L (3.5-5.1); SODIUM 137 MMOL/L (136-145)
[2018-04-08 11:09] LABS: ALANINE AMINOTRANSFERASE 16 U/L (12-78); ALBUMIN 2.5 G/DL (3.4-5.0); ALBUMIN/GLOBULIN RATIO 0.6 (1.0-2.7); ALKALINE PHOSPHATASE 117 U/L (46-116); ASPARTATE AMINO TRANSFERASE 24 U/L (15-37); BILIRUBIN,TOTAL 0.4 MG/DL (0.2-1.0); CREATINE KINASE 41 U/L (26-308)
[2018-04-08] MEDS ORDERED: Piperacillin/Tazobactam 3.375 GM in NS 110 ML IVPB ONE (11:30)
--- NOTE | 2018-04-08 12:36 | Diagnostic Imaging Report ---
Indication: Dyspnea Comparison: 03/26/2018 A single view chest radiograph was obtained. Findings: Mixed interstitial alveolar infiltrates in these demonstrated throughout the lungs bilaterally quite extensive in degree. The heart is enlarged. There may be a small right pleural effusion given the lateral margin of the diaphragm is obscured. This could be due to infiltrate as well as this is not clearly elucidated. A right innominate venous stent noted. Lower cervical fixation hardware also demonstrated. IMPRESSION: Patchy bilateral airspace and interstitial opacities without significant change from the last examination. Findings probably on the basis of pulmonary edema. Correlate clinically.
[2018-04-08 14:01] VITALS: BP 136/61
--- NOTE | 2018-04-08 15:35 | Emergency Room Report ---
History of Present Illness General Chief Complaint: Generalized Weakness Source: Patient Present Illness HPI 63-year-old female presents ED for evaluation. Brought in by EMS from shelter facility for increased lethargy 1 day. Patient has history of end- stage renal disease. On dialysis. Per nursing staff patient is compliant with her dialysis. Denies fevers or chills. Denies chest pain shortness of breath. No other aggravating relieving factors. No other associated symptoms Allergies: Coded Allergies: No Known Allergies (Unverified , 09/20/15) Patient History Past Medical History: DM, HTN, ME, COPD, renal disease, dialysis Pertinent Family History: none Social History: Denies: smoking, alcohol use, drug use Now: No Immunizations: UTD Reviewed Nursing Documentation: PMH: Agreed; PSxH: Agreed Nursing Documentation-PMH Past Medical History: No History, Except For Hx Cardiac Problems: Yes - ME, HF, CAD Hx Hypertension: Yes Hx COPD: Yes Hx Diabetes: Yes - Type 2 Hx Cancer: No Hx Gastrointestinal Problems: Yes Hx Dialysis: Yes - ESRD M-W-F History Of Psychiatric Problem: Yes - Depression Hx Neurological Problems: No - Muscle weakness, Dysphagia, UTI Hx Cerebrovascular Accident: Yes - heart attack Hx Seizures: Yes Review of Systems All Other Systems: limited Physical Exam Vital Signs Date Time Temp Pulse Resp B/P (MAP) Pulse Ox O2 Delivery O2 Flow Rate FiO2 04/08/18 10:07 97.9 86 16 118/76 93 Nasal Cannula 3.0 Sp02 EP Interpretation: reviewed, normal General Appearance: lethargic Head: normocephalic Eyes: bilateral eye normal inspection, bilateral eye PERRL ENT: normal ENT inspection Neck: normal inspection Respiratory: chest non-tender, lungs clear, normal breath sounds, speaking full sentences Cardiovascular #1: regular rate, rhythm, no edema Gastrointestinal: normal bowel sounds, non tender, soft, non-distended, no guarding, no rebound Rectal: deferred Genitourinary: no CVA tenderness Musculoskeletal: normal inspection Neurologic: other - lethargy Psychiatric: other - lethargy Skin: normal inspection Lymphatic: normal inspection Medical Decision Making Diagnostic Impression: Primary Impression: Acute metabolic encephalopathy Additional Impressions: ESRD (end stage renal disease) UTI (urinary tract infection) Qualified Codes: N39.0 - Urinary tract infection, site not specified ER Course Hospital Course 63-year-old female presenting to ED with generalized weakness, lethargy Differential diagnoses include: Pneumonia, UTI, sepsis, dehydration, ME/ unstable angina Clinical course Patient placed on stretcher. On property assessment monitor with stable vitals are ED course. After initial history and physical, I ordered labs, IV fluids, EKG, chest x-ray, blood cultures, UA. Labs - BUN/Cr elevated, K 5.5, no leukocytosis, troponins negative, UA grossly positive for UTI EKG - NSR, no acute ischemic changes interpreted by me CXR - bilateral congestion unchanged from recent chest x-ray on recent admission Abx given. Case discussed with Dr Albright and they agreed to admit patient to their service for further care and support I feel this is a highly complex case requiring extensive working including EKG/ Rhythm strip, Xray/CT/US, Blood/urine lab work, repeat exams while in ED, and administration of strong opiates/narcotics for pain control, admission to hospital or close patient follow up. Diagnosis - UTI, acute metabolic encephalopathy, ESRD Patient admitted to floor in serious condition Labs Test 04/08/18 10:10 04/08/18 10:40 White Blood Count 7.1 K/UL (4.8-10.8) Red Blood Count 3.19 M/UL (4.20-5.40) Hemoglobin 10.5 G/DL (12.0-16.0) Hematocrit 34.2 % (37.0-47.0) Mean Corpuscular Volume 107 FL (80-99) Mean Corpuscular Hemoglobin 33.0 PG (27.0-31.0) Mean Corpuscular Hemoglobin Concent 30.8 G/DL (32.0-36.0) Red Cell Distribution Width 18.3 % (11.6-14.8) Platelet Count 272 K/UL (150-450) Mean Platelet Volume 6.1 FL (6.5-10.1) Neutrophils (%) (Auto) 69.0 % (45.0-75.0) Lymphocytes (%) (Auto) 15.1 % (20.0-45.0) Monocytes (%) (Auto) 6.7 % (1.0-10.0) Eosinophils (%) (Auto) 7.4 % (0.0-3.0) Basophils (%) (Auto) 1.8 % (0.0-2.0) Sodium Level 137 MMOL/L (136-145) Potassium Level 5.5 MMOL/L (3.5-5.1) Chloride Level 100 MMOL/L (98-107) Carbon Dioxide Level 27 MMOL/L (21-32) Anion Gap 10 mmol/L (5-15) Blood Urea Nitrogen 65 mg/dL (7-18) Creatinine 6.4 MG/DL (0.55-1.30) Estimat Glomerular Filtration Rate 8.0 mL/min (>60) Glucose Level 90 MG/DL (74-106) Lactic Acid Level 0.30 mmol/L (0.4-2.0) Calcium Level 8.6 MG/DL (8.5-10.1) Total Bilirubin 0.4 MG/DL (0.2-1.0) Aspartate Amino Transf (AST/SGOT) 24 U/L (15-37) Alanine Aminotransferase (ALT/SGPT) 16 U/L (12-78) Alkaline Phosphatase 117 U/L (46-116) Total Creatine Kinase 41 U/L (26-308) Creatine Kinase MB 1.0 NG/ML (0.0-3.6) Creatine Kinase MB Relative Index 2.4 Troponin I 0.035 ng/mL (0.000-0.056) Pro-B-Type Natriuretic Peptide 67727 pg/mL (0-125) Total Protein 6.7 G/DL (6.4-8.2) Albumin 2.5 G/DL (3.4-5.0) Globulin 4.2 g/dL Albumin/Globulin Ratio 0.6 (1.0-2.7) Urine Color Pale yellow Urine Appearance Cloudy Urine pH 6 (4.5-8.0) Urine Specific [place] 1.015 (1.005-1.035) Urine Protein 3+ (NEGATIVE) Urine Glucose (UA) Negative (NEGATIVE) Urine Ketones Negative (NEGATIVE) Urine Blood 5+ (NEGATIVE) Urine Nitrite Negative (NEGATIVE) Urine Bilirubin Negative (NEGATIVE) Urine Urobilinogen Normal MG/DL (0.0-1.0) Urine Leukocyte Esterase 3+ (NEGATIVE) Urine RBC 20-30 /HPF (0 - 2) Urine WBC 40-60 /HPF (0 - 2) Urine Squamous Epithelial Cells Many /LPF (NONE/OCC) Urine Bacteria Many /HPF (NONE) EKG Diagnostic Results Rate: normal Rhythm: NSR ST Segments: no acute changes ASA given to the pt in ED: No Rhythm Strip Diag. Results EP Interpretation: yes Rhythm: NSR, no PVC's, no ectopy Chest X-Ray Diagnostic Results Chest X-Ray Diagnostic Results : Chest X-Ray Ordered: Yes # of Views/Limited/Complete: 1 View Indication: Other EP Interpretation: Yes Interpretation: no pneumothorax, other - bilateral congestion Impression: Other - chf Electronically Signed by: Electronically signed by Linwood Ling MD Last Vital Signs Date Time Temp Pulse Resp B/P (MAP) Pulse Ox O2 Delivery O2 Flow Rate FiO2 04/08/18 14:01 97.9 94 16 136/61 100 Nasal Cannula 3.0 Status: improved Disposition: ADMITTED INPATIENT Condition: Serious Referrals: Jackson Albright MD (PCP) Linwood Ling MD Apr 08, 2018 15:35
--- NOTE | 2018-04-08 17:01 | NUR ---
ED Nurse Note: attempted x3 to give telephone report. no nurse received report at this time.
[2018-04-08 17:03] VITALS: BP 167/65
--- NOTE | 2018-04-08 17:40 | NUR ---
ED Nurse Note: Telephone report given to CN at 4E. MRSA/VRE/CRE sent down to the lab. pt remains stable. Will transfer the pt soon
--- NOTE | 2018-04-08 17:48 | NUR ---
TRANSFER TO FLOOR: Patient transferred to #[id number] as ordere via gurney. Report given to DOMINIK De Paz. Belongings given to pt. Pt is in bed, sleeping. No s/s of distress. VSS. A/Ox2.
[2018-04-08 18:00] VITALS: BP 140/83
--- NOTE | 2018-04-08 18:00 | NUR ---
NURSE NOTES: Received pt from JEAN CARLOS DSOUZA. Pt is awake and orient x2. no SOB or acute respiratory distress noted. pt has intact iv access LFA 20G SL. pt has iv shunt LINDSAY. Dr estrada visited pt and given all admission orders, all noted and carried out. will continue to monitor.
--- NOTE | 2018-04-08 18:36 | History & Physical ---
History and Physical History & Physicial Dictated for Int Med-Dr Albright no. [id number]. Adair Huerta MD Apr 08, 2018 18:36
[2018-04-08] MEDS ORDERED: Miralax 17gm pkt ORAL PRN (18:45)
[2018-04-08] MEDS ORDERED: HydrALAZINE 25mg tab ORAL PRN (18:45)
[2018-04-08] MEDS ORDERED: Morphine Sulfate 2mg/ml Inj(IV/IM USE ONLY) IVP PRN (18:45)
[2018-04-08] MEDS ORDERED: Zolpidem 5mg tab ORAL PRN (18:45)
[2018-04-08] MEDS ORDERED: Albuterol/Ipratropium 3ml neb HHN PRN (18:45)
[2018-04-08 20:00] VITALS: BP 141/80
--- NOTE | 2018-04-08 20:01 | NUR ---
HAND-OFF: Report given to SHAYLEE.
[2018-04-08] MEDS: NovoLOG Insulin Flexpen SUBQ SCH (21:00)
[2018-04-08] MEDS ORDERED: Doxazosin 4mg tab ORAL SCH (21:00)
--- NOTE | 2018-04-08 21:15 | History and Physical Report ---
DATE OF ADMISSION: 04/08/2018 CHIEF COMPLAINT: The patient is a 63-year-old female, who presents with chief complaint of altered mental status. HISTORY OF PRESENT ILLNESS: The patient is a resident of [facility]. According to staff at [facility], the patient was more altered than usual. The patient had increased lethargy. The patient was scheduled for dialysis today. The patient presented to [facility]. The patient is admitted for altered mental status to rule out sepsis versus acute cerebrovascular accident. REVIEW OF SYSTEMS: Unable to assess secondary to the patient's mental status. PAST MEDICAL HISTORY: Significant for: 1. End-stage renal disease, on hemodialysis every Sunday, Sunday, and Sunday. The patient's last dialysis was Thursday, April 05, 2018. 2. Diabetes type 2. 3. Diabetic peripheral neuropathy. 4. Chronic obstructive pulmonary disease. 5. Cirrhosis of the liver. 6. Ascites. 7. Hypertension. 8. Coronary artery disease, status post myocardial infarction. PAST SURGICAL HISTORY: Significant for: 1. Arteriovenous graft for dialysis x2. 2. Lumbar diskectomy. CURRENT MEDICATIONS: 1. Amlodipine 5 mg one tablet p.o. daily. 2. Calcium acetate 667 mg two tablets p.o. at bedtime. 3. Carvedilol 3.125 mg p.o. twice daily. 4. Clonidine 0.1 mg p.o. q.6 h. p.r.n. 5. Aspart insulin sliding scale. 6. DuoNeb nebulized q.4 h. p.r.n. 7. Levoxyl 0.088 mg p.o. daily. 8. Nephro-Vahid 0.8 mg p.o. daily. 9. Protonix 40 mg p.o. daily. 10. Lyrica 75 mg p.o. twice daily. 11. Seroquel 50 mg p.o. daily. 12. Renvela 2.4 g p.o. three times daily. 13. Tramadol 50 mg p.o. q.6 h. p.r.n. 14. Trazodone 150 mg p.o. at bedtime. 15. Vitamin C 500 mg p.o. daily. 16. Voltaren Gel p.r.n. ALLERGIES: No known drug allergies. SOCIAL HISTORY: The patient is and is resident of [facility]. The patient admits to tobacco use of one-quarter pack per day. The patient denies alcohol use. PHYSICAL EXAMINATION: VITAL SIGNS: Temperature 97.9, respirations 16, blood pressure 118/76, and pulse 86. GENERAL: The patient is well-developed and well-nourished female, who is arousable, however, lethargic. HEENT: Eyes, pupils are equal and responsive to light and accommodation. Extraocular movements are intact. NECK: Supple without lymphadenopathy. CHEST: Lungs are clear to auscultation bilaterally without wheezes or rales. CARDIOVASCULAR: Regular rhythm and rate. S1 and S2 are normal without murmurs, rubs, or gallops. ABDOMEN: Soft, nontender, and nondistended. Positive bowel sounds. No evidence of hepatosplenomegaly. Currently, no rebound or guarding noted. EXTREMITIES: Negative for clubbing, cyanosis, or edema. RECTAL/GENITAL: Refused. NEUROLOGICAL: Cranial nerves II through XII are grossly intact without focal deficits. Motor strength is 5/5 bilaterally . Deep tendon reflexes are 2+ plantar. LABORATORY AND DIAGNOSTIC STUDIES: WBC 7.1, hemoglobin 10.5, hematocrit 32.4, and platelets 272,000. Sodium 137, potassium 5.5, chloride 100, CO2 27, BUN 65, creatinine 6.4, and glucose 90. Lactic acid 0.3. Alkaline phosphatase 117. BNP elevated at 16,639. Troponin normal at 0.035. Urinalysis showed 3+ leukocyte esterase with 40 to 60 wbc's and 20 to 30 rbc's. A chest x-ray revealed bilateral airspace interstitial opacities consistent with pulmonary edema. ASSESSMENT: This is a 63-year-old female. 1. Altered mental status. 2. End-stage renal disease, on hemodialysis. 3. Congestive heart failure. 4. Diabetes type 2. 5. Diabetic peripheral neuropathy. 6. Chronic obstructive pulmonary disease. 7. Cirrhosis of the liver. 8. Ascites. 9. Hypothyroidism. 10. Hypertension. 11. Coronary artery disease. TREATMENT: 1. Altered mental status/lethargy. This may be secondary to congestive heart failure. The patient will receive aggressive diuresis during dialysis. A Nephrology consultation has been obtained with Dr. Sargent. 2. Diabetes type 2. The patient has been started on a NovoLog sliding scale. 3. Hypothyroidism. Continue Synthroid as above. 4. Hypertension. Continue amlodipine and Coreg as above. 5. Coronary artery disease, status post myocardial infarction. 6. Congestive heart failure. This may be secondary to volume overload. A Cardiology consultation is pending. Diuresis will be obtained via dialysis. 7. Chronic obstructive pulmonary disease. A Pulmonary consultation has been obtained with Dr. Bailee Shaw. 8. Cirrhosis of the liver. 9. Ascites. Adair Huerta M.D. DR: RAMESH JOB#: [id number] CC:
[2018-04-08] MEDS: TraZODone 50mg tab ORAL SCH (22:02)
[2018-04-08] MEDS: Heparin 5000 units/ml inj SUBQ SCH (22:03)
[2018-04-08] MEDS: Labetalol 200mg tab ORAL SCH (22:12)
[2018-04-09] VITALS (7 sets, daily range): BP systolic 66–95; BP diastolic 35–51
--- NOTE | 2018-04-09 00:37 | NUR ---
NURSE NOTES: Patient noted with B/p 80/40, rechecked in a few min was 90/35, MD was notified, per Jose Ramon Pizano patient runs low B/p , just continue to monitor. CN was made aware.
[2018-04-09] MEDS: NovoLOG Insulin Flexpen SUBQ SCH ×4 (05:56→20:36)
[2018-04-09 07:11] LABS: BASOPHILS % (AUTO) 1.3 % (0.0-2.0); EOSINOPHILS % (AUTO) 3.7 % (0.0-3.0); HEMATOCRIT 28.3 % (37.0-47.0); HEMOGLOBIN 8.9 G/DL (12.0-16.0); LYMPHOCYTES % (AUTO) 11.7 % (20.0-45.0); MEAN CORPUSCULAR VOLUME 106 FL (80-99); NEUTROPHILS % (AUTO) 77.4 % (45.0-75.0); PLATELET COUNT 227 K/UL (150-450); RED BLOOD COUNT 2.66 M/UL (4.20-5.40); RED CELL DISTRIBUTION WIDTH 17.9 % (11.6-14.8); WHITE BLOOD COUNT 5.1 K/UL (4.8-10.8)
--- NOTE | 2018-04-09 07:16 | NUR ---
HAND-OFF: Report given to Wily EVANGELISTA.
[2018-04-09 07:27] LABS: ALANINE AMINOTRANSFERASE 10 U/L (12-78); ALBUMIN/GLOBULIN RATIO 0.6 (1.0-2.7); ALKALINE PHOSPHATASE 94 U/L (46-116); ANION GAP 9 mmol/L (5-15); ASPARTATE AMINO TRANSFERASE 19 U/L (15-37); BILIRUBIN,TOTAL 0.2 MG/DL (0.2-1.0); BLOOD UREA NITROGEN 77 mg/dL (7-18); CALCIUM 7.6 MG/DL (8.5-10.1); CARBON DIOXIDE 26 MMOL/L (21-32); CHLORIDE 101 MMOL/L (98-107); CHOLESTEROL 140 MG/DL (< 200); CREATININE 7.3 MG/DL (0.55-1.30); HDL CHOLESTEROL 44 MG/DL (40-60); POTASSIUM 5.8 MMOL/L (3.5-5.1); SODIUM 136 MMOL/L (136-145); TRIGLYCERIDES 76 MG/DL (30-150)
[2018-04-09] MEDS: Labetalol 200mg tab ORAL SCH (09:00)
[2018-04-09] MEDS: Renvela 2400 mg pkt ORAL SCH ×3 (09:12→17:31)
[2018-04-09] MEDS: Heparin 5000 units/ml inj SUBQ SCH ×2 (09:14→20:29)
--- NOTE | 2018-04-09 10:42 | NUR ---
NURSE NOTES: PT AXOX1, RESTLESS IN CLOSING MANAGER. NOW CALM AND RESTING IN BED. URGENT ORDER FOR HEMODIALYSIS FROM DR MONTERROSO NOTED AND RN LEFT MESSAGE FOR SEAN AT [facility]. IN NO APPARENT DISTRESS AT THIS TIME. WILL CONTINUE TO MONITOR.
[2018-04-09] MEDS ORDERED: Sodium Polystyrene Sulfonate 15gm Powder ORAL SCH (10:45)
--- NOTE | 2018-04-09 11:46 | NUR ---
NURSE NOTES: PT UNABLE TO STAY AWAKE TO TAKE MEDS. RN WILL ATTEMPT TO GIVE ORDERED KAYAXELATE WHEN PT IS MORE AWAKE. RN SPOKE TO SEAN FROM [facility] AND MADE AWARE OF URGENT HD ORDER. RN LEFT MESSAGE FOR DR MONTERROSO REGARDING LOW BP. IN NO APPARENT DISTRESS AT THIS TIME. WILL CONTINUE TO MONITOR.
--- NOTE | 2018-04-09 12:12 | NUR ---
NURSE NOTES: DR MONTERROSO AT BEDSIDE AND MADE AWARE OF DECREASED BP. ORDER FOR ALBUMIN 5% 500CC RECEIVED. DR MONTERROSO WITH ORDER TO NOT GIVE ONE TIME KAYAXELATE IF DIALYSIS IS INITIATED BY 1300HRS. PT RESTING IN BED AND IN NO APPARENT DISTRESS AT THIS TIME.
--- NOTE | 2018-04-09 12:13 | NUR ---
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 97.9 HR 86 RR 16 B/P 118/76 K 5.5 BUN 68 CR 6.5 BNP 52012 UA+BLOOD,RBC,WBC,LEUKOCYTE ESTERASE,SQUAMOUS EPITH CELL,BACTERIA CXR= Patchy bilateral airspace and interstitial opacities without significant change from the last examination. Findings probably on the basis of pulmonary edema. Correlate clinically. IS: ZOSYN IV ADMITTED TO MED/SURG @ 9603 MED/SURG STATUS DCP RETURN TO [facility]
--- NOTE | 2018-04-09 12:18 | Consultation ---
History of Present Illness General Chief Complaint: Generalized Weakness Present Illness HPI 63-year-old female, who presents with chief complaint of altered mental status. the pt [facility] and was admitted at [facility] before. The pt has been lethargic. the pt has waxing and waning of consciousness. the pt is easily agitated. the pt has cognitive impairment. the pt is unable to be engaged. the pt was dosing off. the pt is on HD. Allergies: Coded Allergies: No Known Allergies (Unverified , 09/20/15) Medication History Scheduled Amlodipine Besylate (Norvasc), 2.5 MG ORAL DAILY, (Reported) Aspirin* (Aspirin*), 325 MG ORAL DAILY, (Reported) Calcium Acetate (Calcium Acetate), 1,334 MG PO QHS, (Reported) Carvedilol* (Carvedilol*), 3.125 MG ORAL EVERY 12 HOURS, (Reported) Clonidine Hcl (Clonidine Hcl), 0.1 MG PO Q8HR, (Reported) Docusate Sodium* (Colace*), 100 MG ORAL THREE TIMES A DAY, (Reported) Doxazosin Mesylate* (Doxazosin Mesylate*), 4 MG ORAL QHS, (Reported) Insulin Aspart (Novolog Flexpen), AC+HS, (Reported) Labetalol HCl (Labetalol HCl), 600 MG ORAL EVERY 12 HOURS, (Reported) Levothyroxine Sodium* (Synthroid*), 88 MCG ORAL DAILY, (Reported) Pantoprazole* (Protonix*), 40 MG ORAL EVERY 12 HOURS, (Reported) Pregabalin* (Lyrica*), 75 MG ORAL Q12HR, (Reported) Quetiapine Fumarate (Seroquel), 50 MG ORAL DAILY, (Reported) Sevelamer Carbonate* (Renvela*), 2,400 MG ORAL THREE TIMES A DAY, (Reported) Trazodone* (Trazodone*), 50 MG ORAL BEDTIME, (Reported) Vitamin B Cmplx/Vit C/Folic AC (Nephro-Vahid Tablet), 1 TAB ORAL DAILY, (Reported ) Vitamin B Cmplx/Vit C/Folic AC (Nephro-Vahid Tablet), 1 TAB ORAL DAILY, (Reported ) Scheduled PRN Acetaminophen With Codeine (T#4) (Tylenol #4 Tab*), 1 TAB ORAL Q6H PRN for For Pain, (Reported) Hydralazine Hcl* (Hydralazine Hcl*), 25 MG ORAL Q4HR PRN for sbp>160, (Reported) Ibuprofen* (Motrin*), 600 MG ORAL Q6H PRN for For Pain, (Reported) Ipratropium/Albuterol Sulfate (DuoNeb 0.5-3(2.5)mg/3ml), 3 ML HHN Q4HR PRN for Shortness of Breath, (Reported) Ondansetron* (Zofran*), 4 MG ORAL Q4HR PRN for Nausea & Vomiting, (Reported) Tramadol Hcl* (Ultram*), 50 MG ORAL Q6H PRN for For Pain, (Reported) Zolpidem Tartrate* (Zolpidem Tartrate*), 5 MG ORAL BEDTIME PRN for Insomnia, ( Reported) Miscellaneous Medications Diclofenac Sodium (Voltaren), 100 GM TP, (Reported) Patient History Limited by: medical condition History Provided By: Medical Record, PMD Healthcare decision maker Resuscitation status Advanced Directive on File No Past Medical/Surgical History Past Medical/Surgical History: (1) Atypical chest pain (2) Acute metabolic encephalopathy (3) UTI (urinary tract infection) (4) Pulmonary edema (5) Elevated tumor markers (6) Hypothyroidism (7) Thrombocytopenia (8) GERD (gastroesophageal reflux disease) (9) HTN (hypertension) (10) H/O ETOH abuse (11) Malfunction of arteriovenous dialysis fistula (12) Deep venous thrombosis of axillary vein (13) Anemia (14) Ascites (15) CHF (congestive heart failure) (16) Cirrhosis of liver (17) ESRD (end stage renal disease) (18) ACS (acute coronary syndrome) (19) COPD (chronic obstructive pulmonary disease) (20) Ataxia (21) Diabetes mellitus, type II (22) Diabetic peripheral neuropathy (23) MDD (major depressive disorder), recurrent episode (24) Hypotension Review of Systems Psychiatric: Reports: prior hx, anxiety, depressed feelings, emotional problems Physical Exam General Appearance: no apparent distress, lethargic - waxing and waning of conciousness , confused Neurologic: depressed affect Last 24 Hour Vital Signs Date Time Temp Pulse Resp B/P (MAP) Pulse Ox O2 Delivery O2 Flow Rate FiO2 04/09/18 09:00 64 66/36 04/09/18 09:00 64 66/36 04/09/18 09:00 64 66/36 04/09/18 09:00 Room Air 04/09/18 08:00 97.4 64 17 66/36 (46) 94 04/09/18 06:00 80/44 04/09/18 04:24 97.2 65 18 82/42 (55) 04/09/18 00:00 97.9 73 18 90/35 (53) 04/08/18 22:12 90 141/80 04/08/18 22:02 141/80 04/08/18 22:02 90 141/80 04/08/18 21:21 Room Air 04/08/18 21:17 Room Air 04/08/18 21:14 Room Air 04/08/18 21:08 Room Air 04/08/18 20:00 98.2 90 19 141/80 (100) 04/08/18 18:00 98.0 62 18 140/83 (102) 100 04/08/18 17:40 97.9 86 16 167/65 100 Nasal Cannula 3.0 04/08/18 17:03 97.9 86 16 167/65 100 Nasal Cannula 3.0 04/08/18 14:01 97.9 94 16 136/61 100 Nasal Cannula 3.0 Intake and Output 04/08/18 04/09/18 19:00 07:00 Intake Total 110 ml Balance 110 ml IV Total 110 ml # Bowel Movements 5 Laboratory Tests Test 04/09/18 05:45 White Blood Count 5.1 K/UL (4.8-10.8) Red Blood Count 2.66 M/UL (4.20-5.40) L Hemoglobin 8.9 G/DL (12.0-16.0) L Hematocrit 28.3 % (37.0-47.0) L Mean Corpuscular Volume 106 FL (80-99) H Mean Corpuscular Hemoglobin 33.5 PG (27.0-31.0) H Mean Corpuscular Hemoglobin Concent 31.6 G/DL (32.0-36.0) L Red Cell Distribution Width 17.9 % (11.6-14.8) H Platelet Count 227 K/UL (150-450) Mean Platelet Volume 5.8 FL (6.5-10.1) L Neutrophils (%) (Auto) 77.4 % (45.0-75.0) H Lymphocytes (%) (Auto) 11.7 % (20.0-45.0) L Monocytes (%) (Auto) 6.0 % (1.0-10.0) Eosinophils (%) (Auto) 3.7 % (0.0-3.0) H Basophils (%) (Auto) 1.3 % (0.0-2.0) Sodium Level 136 MMOL/L (136-145) Potassium Level 5.8 MMOL/L (3.5-5.1) H Chloride Level 101 MMOL/L (98-107) Carbon Dioxide Level 26 MMOL/L (21-32) Anion Gap 9 mmol/L (5-15) Blood Urea Nitrogen 77 mg/dL (7-18) H Creatinine 7.3 MG/DL (0.55-1.30) H Estimat Glomerular Filtration Rate 6.8 mL/min (>60) Glucose Level 109 MG/DL (74-106) H Hemoglobin A1c 5.5 % (4.3-6.0) Calcium Level 7.6 MG/DL (8.5-10.1) L Total Bilirubin 0.2 MG/DL (0.2-1.0) Aspartate Amino Transf (AST/SGOT) 19 U/L (15-37) Alanine Aminotransferase (ALT/SGPT) 10 U/L (12-78) L Alkaline Phosphatase 94 U/L (46-116) Total Protein 5.6 G/DL (6.4-8.2) L Albumin 2.0 G/DL (3.4-5.0) L Globulin 3.6 g/dL Albumin/Globulin Ratio 0.6 (1.0-2.7) L Triglycerides Level 76 MG/DL (30-150) Cholesterol Level 140 MG/DL (< 200) LDL Cholesterol 86 mg/dL (<100) HDL Cholesterol 44 MG/DL (40-60) Cholesterol/HDL Ratio 3.2 (3.3-4.4) L Thyroid Stimulating Hormone (TSH) 2.036 uiU/mL (0.358-3.740) Height (Feet): 5 Height (Inches): 10.00 Weight (Pounds): 180 Medications Current Medications Medications (Trade) Dose Ordered Sig/Ranjan Route PRN Reason Start Time Stop Time Status Last Admin Dose Admin Acetaminophen (Tylenol) 650 mg Q4H PRN ORAL fever 04/08/18 18:45 05/08/18 18:44 Albumin Human (Albuminar-5) 500 ml ONCE IV 04/09/18 14:00 04/09/18 15:00 Albuterol/ Ipratropium (Albuterol/ Ipratropium) 3 ml Q6H PRN HHN dyspnea 04/08/18 18:45 04/13/18 18:44 Amlodipine Besylate (Norvasc) 2.5 mg DAILY ORAL 04/09/18 09:00 05/09/18 08:59 Carvedilol (Coreg) 3.125 mg EVERY 12 HOURS ORAL 04/08/18 21:00 05/08/18 20:59 04/08/18 22:02 Clonidine HCl (Catapres Tab) 0.1 mg Q4H PRN ORAL For High Blood Pressure 04/08/18 18:45 05/08/18 18:44 Dextrose (Dextrose 50%) STAT PRN IV Hypoglycemia 04/08/18 18:45 05/08/18 18:44 Dextrose (Dextrose 50%) STAT PRN IV Hypoglycemia 04/08/18 18:45 05/08/18 18:44 Heparin Sodium (Porcine) (Heparin 5000 units/ml) 5,000 units EVERY 12 HOURS SUBQ 04/08/18 21:00 05/08/18 20:59 04/09/18 09:14 Hydralazine HCl (Apresoline) 25 mg Q4H PRN ORAL sbp>160 04/08/18 18:45 05/08/18 18:44 Insulin Aspart (NovoLOG) BEFORE MEALS AND HS SUBQ 04/08/18 21:00 05/08/18 20:59 Labetalol HCl (Normodyne) 600 mg EVERY 12 HOURS ORAL 04/08/18 21:00 05/08/18 20:59 04/08/18 22:12 Levofloxacin 50 ml @ 50 mls/hr Q48H IVPB 04/10/18 21:00 04/17/18 20:59 Levothyroxine Sodium (Synthroid) 88 mcg ACBREAKFAST ORAL 04/09/18 06:30 05/09/18 06:29 04/09/18 06:28 Morphine Sulfate (Morphine Sulfate) 1 mg Q4H PRN IVP For Pain 04/08/18 18:45 04/15/18 18:44 Ondansetron HCl (Zofran) 4 mg Q6H PRN IVP Nausea & Vomiting 04/08/18 18:45 05/08/18 18:44 Polyethylene Glycol (Miralax) 17 gm HSPRN PRN ORAL Constipation 04/08/18 18:45 05/08/18 18:44 Sevelamer Carbonate (Renvela) 2,400 mg THREE TIMES A DAY ORAL 04/09/18 09:00 05/09/18 08:59 04/09/18 09:12 Trazodone HCl (Desyrel) 50 mg BEDTIME ORAL 04/08/18 21:00 05/08/18 20:59 04/08/18 22:02 Zolpidem Tartrate (Ambien) 5 mg HSPRN PRN ORAL Insomnia 04/08/18 18:45 04/15/18 18:44 Assessment/Plan Problem List: (1) Acute metabolic encephalopathy ICD Codes: G93.41 - Metabolic encephalopathy SNOMED: 46378794, 614006936 (2) MDD (major depressive disorder), recurrent episode ICD Codes: F33.9 - Major depressive disorder, recurrent, unspecified SNOMED: 536191931 Status: unchanged Assessment/Plan trazodone 50mg po qhs Seroquel 12.5mg po q6hr/prn/anxiety the pt was provided with sheela/Eric Rao MD Apr 09, 2018 12:18
[2018-04-09] MEDS ORDERED: Albumin Human 5% 500ml IV SCH (14:00)
--- NOTE | 2018-04-09 14:31 | Consultation ---
History of Present Illness General Date patient seen: Apr 09, 2018 Chief Complaint: Generalized Weakness Present Illness Allergies: Coded Allergies: No Known Allergies (Unverified , 09/20/15) Medication History Scheduled Amlodipine Besylate (Norvasc), 2.5 MG ORAL DAILY, (Reported) Aspirin* (Aspirin*), 325 MG ORAL DAILY, (Reported) Calcium Acetate (Calcium Acetate), 1,334 MG PO QHS, (Reported) Carvedilol* (Carvedilol*), 3.125 MG ORAL EVERY 12 HOURS, (Reported) Clonidine Hcl (Clonidine Hcl), 0.1 MG PO Q8HR, (Reported) Docusate Sodium* (Colace*), 100 MG ORAL THREE TIMES A DAY, (Reported) Doxazosin Mesylate* (Doxazosin Mesylate*), 4 MG ORAL QHS, (Reported) Insulin Aspart (Novolog Flexpen), AC+HS, (Reported) Labetalol HCl (Labetalol HCl), 600 MG ORAL EVERY 12 HOURS, (Reported) Levothyroxine Sodium* (Synthroid*), 88 MCG ORAL DAILY, (Reported) Pantoprazole* (Protonix*), 40 MG ORAL EVERY 12 HOURS, (Reported) Pregabalin* (Lyrica*), 75 MG ORAL Q12HR, (Reported) Quetiapine Fumarate (Seroquel), 50 MG ORAL DAILY, (Reported) Sevelamer Carbonate* (Renvela*), 2,400 MG ORAL THREE TIMES A DAY, (Reported) Trazodone* (Trazodone*), 50 MG ORAL BEDTIME, (Reported) Vitamin B Cmplx/Vit C/Folic AC (Nephro-Vahid Tablet), 1 TAB ORAL DAILY, (Reported ) Vitamin B Cmplx/Vit C/Folic AC (Nephro-Vahid Tablet), 1 TAB ORAL DAILY, (Reported ) Scheduled PRN Acetaminophen With Codeine (T#4) (Tylenol #4 Tab*), 1 TAB ORAL Q6H PRN for For Pain, (Reported) Acetaminophen* (Acetaminophen 325MG Tablet*), 650 MG ORAL Q4H PRN for Mild Pain/ Temp > 100.5, (Reported) Hydralazine Hcl* (Hydralazine Hcl*), 25 MG ORAL Q4HR PRN for sbp>160, (Reported) Ibuprofen* (Motrin*), 600 MG ORAL Q6H PRN for For Pain, (Reported) Ipratropium/Albuterol Sulfate (DuoNeb 0.5-3(2.5)mg/3ml), 3 ML HHN Q4HR PRN for Shortness of Breath, (Reported) Ondansetron* (Zofran*), 4 MG ORAL Q4HR PRN for Nausea & Vomiting, (Reported) Quetiapine Fumarate* (Quetiapine Fumarate*), 25 MG ORAL Q6HR PRN for For Anxiety , (Reported) Tramadol Hcl* (Ultram*), 50 MG ORAL Q6H PRN for For Pain, (Reported) Zolpidem Tartrate* (Zolpidem Tartrate*), 5 MG ORAL BEDTIME PRN for Insomnia, ( Reported) Miscellaneous Medications Diclofenac Sodium (Voltaren), 100 GM TP, (Reported) Patient History Healthcare decision maker Resuscitation status Advanced Directive on File No Physical Exam Last 24 Hour Vital Signs Date Time Temp Pulse Resp B/P (MAP) Pulse Ox O2 Delivery O2 Flow Rate FiO2 04/09/18 12:00 97.5 73 17 73/42 (52) 94 04/09/18 09:00 64 66/36 04/09/18 09:00 64 66/36 04/09/18 09:00 64 66/36 04/09/18 09:00 Room Air 04/09/18 08:00 97.4 64 17 66/36 (46) 94 04/09/18 06:00 80/44 04/09/18 04:24 97.2 65 18 82/42 (55) 04/09/18 00:00 97.9 73 18 90/35 (53) 04/08/18 22:12 90 141/80 04/08/18 22:02 141/80 04/08/18 22:02 90 141/80 04/08/18 21:21 Room Air 04/08/18 21:17 Room Air 04/08/18 21:14 Room Air 04/08/18 21:08 Room Air 04/08/18 20:00 98.2 90 19 141/80 (100) 04/08/18 18:00 98.0 62 18 140/83 (102) 100 04/08/18 17:40 97.9 86 16 167/65 100 Nasal Cannula 3.0 04/08/18 17:03 97.9 86 16 16765 100 Nasal Cannula 3.0 Intake and Output 04/08/18 04/09/18 19:00 07:00 Intake Total 110 ml Balance 110 ml IV Total 110 ml # Bowel Movements 5 Laboratory Tests Test 04/09/18 05:45 White Blood Count 5.1 K/UL (4.8-10.8) Red Blood Count 2.66 M/UL (4.20-5.40) L Hemoglobin 8.9 G/DL (12.0-16.0) L Hematocrit 28.3 % (37.0-47.0) L Mean Corpuscular Volume 106 FL (80-99) H Mean Corpuscular Hemoglobin 33.5 PG (27.0-31.0) H Mean Corpuscular Hemoglobin Concent 31.6 G/DL (32.0-36.0) L Red Cell Distribution Width 17.9 % (11.6-14.8) H Platelet Count 227 K/UL (150-450) Mean Platelet Volume 5.8 FL (6.5-10.1) L Neutrophils (%) (Auto) 77.4 % (45.0-75.0) H Lymphocytes (%) (Auto) 11.7 % (20.0-45.0) L Monocytes (%) (Auto) 6.0 % (1.0-10.0) Eosinophils (%) (Auto) 3.7 % (0.0-3.0) H Basophils (%) (Auto) 1.3 % (0.0-2.0) Sodium Level 136 MMOL/L (136-145) Potassium Level 5.8 MMOL/L (3.5-5.1) H Chloride Level 101 MMOL/L (98-107) Carbon Dioxide Level 26 MMOL/L (21-32) Anion Gap 9 mmol/L (5-15) Blood Urea Nitrogen 77 mg/dL (7-18) H Creatinine 7.3 MG/DL (0.55-1.30) H Estimat Glomerular Filtration Rate 6.8 mL/min (>60) Glucose Level 109 MG/DL (74-106) H Hemoglobin A1c 5.5 % (4.3-6.0) Calcium Level 7.6 MG/DL (8.5-10.1) L Total Bilirubin 0.2 MG/DL (0.2-1.0) Aspartate Amino Transf (AST/SGOT) 19 U/L (15-37) Alanine Aminotransferase (ALT/SGPT) 10 U/L (12-78) L Alkaline Phosphatase 94 U/L (46-116) Total Protein 5.6 G/DL (6.4-8.2) L Albumin 2.0 G/DL (3.4-5.0) L Globulin 3.6 g/dL Albumin/Globulin Ratio 0.6 (1.0-2.7) L Triglycerides Level 76 MG/DL (30-150) Cholesterol Level 140 MG/DL (< 200) LDL Cholesterol 86 mg/dL (<100) HDL Cholesterol 44 MG/DL (40-60) Cholesterol/HDL Ratio 3.2 (3.3-4.4) L Thyroid Stimulating Hormone (TSH) 2.036 uiU/mL (0.358-3.740) Height (Feet): 5 Height (Inches): 10.00 Weight (Pounds): 180 Medications Current Medications Medications (Trade) Dose Ordered Sig/Ranjan Route PRN Reason Start Time Stop Time Status Last Admin Dose Admin Acetaminophen (Tylenol) 650 mg Q4H PRN ORAL fever 04/08/18 18:45 05/08/18 18:44 Albumin Human (Albuminar-5) 500 ml ONCE IV 04/09/18 14:00 04/09/18 15:00 04/09/18 14:02 Albuterol/ Ipratropium (Albuterol/ Ipratropium) 3 ml Q6H PRN HHN dyspnea 04/08/18 18:45 04/13/18 18:44 Amlodipine Besylate (Norvasc) 2.5 mg DAILY ORAL 04/09/18 09:00 05/09/18 08:59 Carvedilol (Coreg) 3.125 mg EVERY 12 HOURS ORAL 04/08/18 21:00 05/08/18 20:59 04/08/18 22:02 Clonidine HCl (Catapres Tab) 0.1 mg Q4H PRN ORAL For High Blood Pressure 04/08/18 18:45 05/08/18 18:44 Dextrose (Dextrose 50%) STAT PRN IV Hypoglycemia 04/08/18 18:45 05/08/18 18:44 Dextrose (Dextrose 50%) STAT PRN IV Hypoglycemia 04/08/18 18:45 05/08/18 18:44 Heparin Sodium (Porcine) (Heparin 5000 units/ml) 5,000 units EVERY 12 HOURS SUBQ 04/08/18 21:00 05/08/18 20:59 04/09/18 09:14 Hydralazine HCl (Apresoline) 25 mg Q4H PRN ORAL sbp>160 04/08/18 18:45 05/08/18 18:44 Insulin Aspart (NovoLOG) BEFORE MEALS AND HS SUBQ 04/08/18 21:00 05/08/18 20:59 Labetalol HCl (Normodyne) 600 mg EVERY 12 HOURS ORAL 04/08/18 21:00 05/08/18 20:59 04/08/18 22:12 Levofloxacin 50 ml @ 50 mls/hr Q48H IVPB 04/10/18 21:00 04/17/18 20:59 Levothyroxine Sodium (Synthroid) 88 mcg ACBREAKFAST ORAL 04/09/18 06:30 05/09/18 06:29 04/09/18 06:28 Morphine Sulfate (Morphine Sulfate) 1 mg Q4H PRN IVP For Pain 04/08/18 18:45 04/15/18 18:44 Ondansetron HCl (Zofran) 4 mg Q6H PRN IVP Nausea & Vomiting 04/08/18 18:45 05/08/18 18:44 Polyethylene Glycol (Miralax) 17 gm HSPRN PRN ORAL Constipation 04/08/18 18:45 05/08/18 18:44 Sevelamer Carbonate (Renvela) 2,400 mg THREE TIMES A DAY ORAL 04/09/18 09:00 05/09/18 08:59 04/09/18 14:02 Trazodone HCl (Desyrel) 50 mg BEDTIME ORAL 04/08/18 21:00 05/08/18 20:59 04/08/18 22:02 Zolpidem Tartrate (Ambien) 5 mg HSPRN PRN ORAL Insomnia 04/08/18 18:45 04/15/18 18:44 Assessment/Plan Problem List: (1) UTI (urinary tract infection) ICD Codes: N39.0 - Urinary tract infection, site not specified SNOMED: 57652531 Qualifiers: Qualified Codes: N39.0 - Urinary tract infection, site not specified (2) COPD (chronic obstructive pulmonary disease) ICD Codes: J44.9 - Chronic obstructive pulmonary disease, unspecified SNOMED: 33044194 (3) Cirrhosis of liver ICD Codes: K74.60 - Unspecified cirrhosis of liver SNOMED: 00956252 (4) Pulmonary edema ICD Codes: J81.1 - Chronic pulmonary edema SNOMED: 87001114 (5) HTN (hypertension) ICD Codes: I10 - Essential (primary) hypertension SNOMED: 75343136 (6) ESRD (end stage renal disease) ICD Codes: N18.6 - End stage renal disease SNOMED: 38386945 (7) Diabetes mellitus, type II ICD Codes: E11.9 - Type 2 diabetes mellitus without complications SNOMED: 32501471 Assessment/Plan check cultures iv abx HD for ESRF check electrolytes sliding scale diabetic diet Bailee Shaw MD Apr 09, 2018 14:31
--- NOTE | 2018-04-09 15:19 | Consultation ---
Consult Note Consult Note asked to eval for dialysis management 63-year-old female presents ED for evaluation. Brought in by EMS from long term facility for increased lethargy 1 day. Patient has history of end- stage renal disease. On dialysis. Per nursing staff patient is compliant with her dialysis. Denies fevers or chills. Denies chest pain shortness of breath. No other aggravating relieving factors. No other associated symptoms No Known Allergies (Unverified , 09/20/15) Past Medical History: DM, HTN, [place], COPD, renal disease, dialysis Pertinent Family History: none Social History: Denies: smoking, alcohol use, drug use Now: No Immunizations: UTD Reviewed Nursing Documentation: PMH: Agreed; PSxH: Agreed Past Medical History: No History, Except For Hx Cardiac Problems: Yes - [place], HF, CAD Hx Hypertension: Yes Hx COPD: Yes Hx Diabetes: Yes - Type 2 Hx Gastrointestinal Problems: Yes Hx Dialysis: Yes - ESRD M-W-F History Of Psychiatric Problem: Yes - Depression Hx Neurological Problems: No - Muscle weakness, Dysphagia, UTI Hx Cerebrovascular Accident: Yes - heart attack Hx Seizures: Yes examined lethargic BP low meds and labs reviewed discussed with automatic dispenser mechanic/Plan (1) ESRD (end stage renal disease) (2) Cirrhosis of liver, ascitis (3) Anemia (4) Diabetes (5) HTN (hypertension), presents with low BP (6) HypoThyroid (7) h/o Atrial Fib hold all bp meds- fluid challenge dialysis today no uf 2D echo last admission results noted continue per psych minimize mind altering meds Archie Sargent MD Apr 09, 2018 15:19
--- NOTE | 2018-04-09 15:31 | Internal Med Progress Note ---
Subjective Date of Service: Apr 09, 2018 Physician Name Adair Huerta Attending Physician Jackson Albright MD Current Medications Medications (Trade) Dose Ordered Sig/Ranjan Route PRN Reason Start Time Stop Time Status Last Admin Dose Admin Acetaminophen (Tylenol) 650 mg Q4H PRN ORAL fever 04/08/18 18:45 05/08/18 18:44 Albuterol/ Ipratropium (Albuterol/ Ipratropium) 3 ml Q6H PRN HHN dyspnea 04/08/18 18:45 04/13/18 18:44 Dextrose (Dextrose 50%) STAT PRN IV Hypoglycemia 04/08/18 18:45 05/08/18 18:44 Dextrose (Dextrose 50%) STAT PRN IV Hypoglycemia 04/08/18 18:45 05/08/18 18:44 Heparin Sodium (Porcine) (Heparin 5000 units/ml) 5,000 units EVERY 12 HOURS SUBQ 04/08/18 21:00 05/08/18 20:59 04/09/18 09:14 Hydralazine HCl (Apresoline) 25 mg Q4H PRN ORAL sbp>160 04/08/18 18:45 05/08/18 18:44 Insulin Aspart (NovoLOG) BEFORE MEALS AND HS SUBQ 04/08/18 21:00 05/08/18 20:59 Levofloxacin 50 ml @ 50 mls/hr Q48H IVPB 04/10/18 21:00 04/17/18 20:59 Levothyroxine Sodium (Synthroid) 88 mcg ACBREAKFAST ORAL 04/09/18 06:30 05/09/18 06:29 04/09/18 06:28 Morphine Sulfate (Morphine Sulfate) 1 mg Q4H PRN IVP For Pain 04/08/18 18:45 04/15/18 18:44 Ondansetron HCl (Zofran) 4 mg Q6H PRN IVP Nausea & Vomiting 04/08/18 18:45 05/08/18 18:44 Polyethylene Glycol (Miralax) 17 gm HSPRN PRN ORAL Constipation 04/08/18 18:45 05/08/18 18:44 Sevelamer Carbonate (Renvela) 2,400 mg THREE TIMES A DAY ORAL 04/09/18 09:00 05/09/18 08:59 04/09/18 14:02 Sodium Chloride 500 ml @ 999 mls/hr Q31M ONCE IV 04/09/18 15:30 04/09/18 16:00 Trazodone HCl (Desyrel) 50 mg BEDTIME ORAL 04/08/18 21:00 05/08/18 20:59 04/08/18 22:02 Zolpidem Tartrate (Ambien) 5 mg HSPRN PRN ORAL Insomnia 04/08/18 18:45 04/15/18 18:44 Allergies: Coded Allergies: No Known Allergies (Unverified , 09/20/15) ROS Limited/Unobtainable: Yes Subjective 63 YO F admitted with altered mental status. Now UTI. Cover for Int [facility] Albright Objective Last Vital Signs Date Time Temp Pulse Resp B/P (MAP) Pulse Ox O2 Delivery O2 Flow Rate FiO2 04/09/18 12:00 97.5 73 17 73/42 (52) 94 04/09/18 09:00 Room Air 04/08/18 17:40 3.0 Laboratory Tests Test 04/09/18 05:45 White Blood Count 5.1 K/UL (4.8-10.8) Red Blood Count 2.66 M/UL (4.20-5.40) L Hemoglobin 8.9 G/DL (12.0-16.0) L Hematocrit 28.3 % (37.0-47.0) L Mean Corpuscular Volume 106 FL (80-99) H Mean Corpuscular Hemoglobin 33.5 PG (27.0-31.0) H Mean Corpuscular Hemoglobin Concent 31.6 G/DL (32.0-36.0) L Red Cell Distribution Width 17.9 % (11.6-14.8) H Platelet Count 227 K/UL (150-450) Mean Platelet Volume 5.8 FL (6.5-10.1) L Neutrophils (%) (Auto) 77.4 % (45.0-75.0) H Lymphocytes (%) (Auto) 11.7 % (20.0-45.0) L Monocytes (%) (Auto) 6.0 % (1.0-10.0) Eosinophils (%) (Auto) 3.7 % (0.0-3.0) H Basophils (%) (Auto) 1.3 % (0.0-2.0) Sodium Level 136 MMOL/L (136-145) Potassium Level 5.8 MMOL/L (3.5-5.1) H Chloride Level 101 MMOL/L (98-107) Carbon Dioxide Level 26 MMOL/L (21-32) Anion Gap 9 mmol/L (5-15) Blood Urea Nitrogen 77 mg/dL (7-18) H Creatinine 7.3 MG/DL (0.55-1.30) H Estimat Glomerular Filtration Rate 6.8 mL/min (>60) Glucose Level 109 MG/DL (74-106) H Hemoglobin A1c 5.5 % (4.3-6.0) Calcium Level 7.6 MG/DL (8.5-10.1) L Total Bilirubin 0.2 MG/DL (0.2-1.0) Aspartate Amino Transf (AST/SGOT) 19 U/L (15-37) Alanine Aminotransferase (ALT/SGPT) 10 U/L (12-78) L Alkaline Phosphatase 94 U/L (46-116) Total Protein 5.6 G/DL (6.4-8.2) L Albumin 2.0 G/DL (3.4-5.0) L Globulin 3.6 g/dL Albumin/Globulin Ratio 0.6 (1.0-2.7) L Triglycerides Level 76 MG/DL (30-150) Cholesterol Level 140 MG/DL (< 200) LDL Cholesterol 86 mg/dL (<100) HDL Cholesterol 44 MG/DL (40-60) Cholesterol/HDL Ratio 3.2 (3.3-4.4) L Thyroid Stimulating Hormone (TSH) 2.036 uiU/mL (0.358-3.740) Microbiology Date/Time Source Procedure Growth Status 04/08/18 10:40 Urine,Clean Catch Urine Culture - Preliminary Gram Negative Bacillus 1 Resulted Intake and Output 04/08/18 04/09/18 19:00 07:00 Intake Total 110 ml Balance 110 ml IV Total 110 ml # Bowel Movements 5 Objective PHYSICAL EXAMINATION: GENERAL: The patient is well-developed and well-nourished female, who is arousable, however, lethargic. HEENT: Eyes, pupils are equal and responsive to light and accommodation. Extraocular movements are intact. NECK: Supple without lymphadenopathy. CHEST: Lungs are clear to auscultation bilaterally without wheezes or rales. CARDIOVASCULAR: Regular rhythm and rate. S1 and S2 are normal without murmurs, rubs, or gallops. ABDOMEN: Soft, nontender, and nondistended. Positive bowel sounds. No evidence of hepatosplenomegaly. Currently, no rebound or guarding noted. EXTREMITIES: Negative for clubbing, cyanosis, or edema. RECTAL/GENITAL: Refused. NEUROLOGICAL: Cranial nerves II through XII are grossly intact without focal deficits. Motor strength is 5/5 bilaterally . Deep tendon reflexes are 2+ plantar. Assessment/Plan Assessment/Plan ASSESSMENT: This is a 63-year-old female. 1. Altered mental status. 2. End-stage renal disease, on hemodialysis. 3. Congestive heart failure. 4. Diabetes type 2. 5. Diabetic peripheral neuropathy. 6. Chronic obstructive pulmonary disease. 7. Cirrhosis of the liver. 8. Ascites. 9. Hypothyroidism. 10. Hypertension. 11. Coronary artery disease. 12. Urinary Tract Infection-gram neg audelia TREATMENT: 1. Altered mental status/lethargy. This may be secondary to congestive heart failure. The patient will receive aggressive diuresis during dialysis. A Nephrology consultation has been obtained with Dr. Sargent. 2. Diabetes type 2. The patient has been started on a NovoLog sliding scale. 3. Hypothyroidism. Continue Synthroid as above. 4. Hypertension. Continue amlodipine and Coreg as above. 5. Coronary artery disease, status post myocardial infarction. 6. Congestive heart failure. This may be secondary to volume overload. A Cardiology consultation is pending. Diuresis will be obtained via dialysis. 7. Chronic obstructive pulmonary disease. A Pulmonary consultation has been obtained with Dr. Bailee Shaw. 8. Cirrhosis of the liver. 9. Ascites. 10. Await urine culture result. Continue levaquin for now Adair Huerta MD Apr 09, 2018 15:31
--- NOTE | 2018-04-09 15:32 | Cardiology Report ---
APPROVED REPORT EKG Measurement Heart [id number] MS [id number] Normal sinus rhythm Low voltage QRS Nonspecific T wave abnormality Abnormal ECG
--- NOTE | 2018-04-09 16:25 | Cardiology Progress Note ---
Assessment/Plan Assessment/Plan repeat echo to exclude pe cortisol level in am \albumin for bp support will follow [id number] Objective Last 24 Hour Vital Signs Date Time Temp Pulse Resp B/P (MAP) Pulse Ox O2 Delivery O2 Flow Rate FiO2 04/09/18 12:00 97.5 73 17 73/42 (52) 94 04/09/18 09:00 64 66/36 04/09/18 09:00 64 66/36 04/09/18 09:00 64 66/36 04/09/18 09:00 Room Air 04/09/18 08:00 97.4 64 17 66/36 (46) 94 04/09/18 06:00 80/44 04/09/18 04:24 97.2 65 18 82/42 (55) 04/09/18 00:00 97.9 73 18 90/35 (53) 04/08/18 22:12 90 141/80 04/08/18 22:02 141/80 04/08/18 22:02 90 141/80 04/08/18 21:21 Room Air 04/08/18 21:17 Room Air 04/08/18 21:14 Room Air 04/08/18 21:08 Room Air 04/08/18 20:00 98.2 90 19 141/80 (100) 04/08/18 18:00 98.0 62 18 140/83 (102) 100 04/08/18 17:40 97.9 86 16 167/65 100 Nasal Cannula 3.0 04/08/18 17:03 97.9 86 16 167/65 100 Nasal Cannula 3.0 Intake and Output 04/08/18 04/09/18 19:00 07:00 Intake Total 110 ml Balance 110 ml IV Total 110 ml # Bowel Movements 5 Laboratory Tests Test 04/09/18 05:45 White Blood Count 5.1 K/UL (4.8-10.8) Red Blood Count 2.66 M/UL (4.20-5.40) L Hemoglobin 8.9 G/DL (12.0-16.0) L Hematocrit 28.3 % (37.0-47.0) L Mean Corpuscular Volume 106 FL (80-99) H Mean Corpuscular Hemoglobin 33.5 PG (27.0-31.0) H Mean Corpuscular Hemoglobin Concent 31.6 G/DL (32.0-36.0) L Red Cell Distribution Width 17.9 % (11.6-14.8) H Platelet Count 227 K/UL (150-450) Mean Platelet Volume 5.8 FL (6.5-10.1) L Neutrophils (%) (Auto) 77.4 % (45.0-75.0) H Lymphocytes (%) (Auto) 11.7 % (20.0-45.0) L Monocytes (%) (Auto) 6.0 % (1.0-10.0) Eosinophils (%) (Auto) 3.7 % (0.0-3.0) H Basophils (%) (Auto) 1.3 % (0.0-2.0) Sodium Level 136 MMOL/L (136-145) Potassium Level 5.8 MMOL/L (3.5-5.1) H Chloride Level 101 MMOL/L (98-107) Carbon Dioxide Level 26 MMOL/L (21-32) Anion Gap 9 mmol/L (5-15) Blood Urea Nitrogen 77 mg/dL (7-18) H Creatinine 7.3 MG/DL (0.55-1.30) H Estimat Glomerular Filtration Rate 6.8 mL/min (>60) Glucose Level 109 MG/DL (74-106) H Hemoglobin A1c 5.5 % (4.3-6.0) Calcium Level 7.6 MG/DL (8.5-10.1) L Total Bilirubin 0.2 MG/DL (0.2-1.0) Aspartate Amino Transf (AST/SGOT) 19 U/L (15-37) Alanine Aminotransferase (ALT/SGPT) 10 U/L (12-78) L Alkaline Phosphatase 94 U/L (46-116) Total Protein 5.6 G/DL (6.4-8.2) L Albumin 2.0 G/DL (3.4-5.0) L Globulin 3.6 g/dL Albumin/Globulin Ratio 0.6 (1.0-2.7) L Triglycerides Level 76 MG/DL (30-150) Cholesterol Level 140 MG/DL (< 200) LDL Cholesterol 86 mg/dL (<100) HDL Cholesterol 44 MG/DL (40-60) Cholesterol/HDL Ratio 3.2 (3.3-4.4) L Thyroid Stimulating Hormone (TSH) 2.036 uiU/mL (0.358-3.740) Microbiology Date/Time Source Procedure Growth Status 04/08/18 10:40 Urine,Clean Catch Urine Culture - Preliminary Gram Negative Bacillus 1 Resulted Kevyn Dillard MD Apr 09, 2018 16:25
--- NOTE | 2018-04-09 19:07 | NUR ---
HAND-OFF: Report given to Montrell LESTER RN.
--- NOTE | 2018-04-09 19:32 | NUR ---
NURSE NOTES: Received patient in bed, no acute distress noted, call light is within reach, bed is locked, low position and alarm is on, will continue with POC.
--- NOTE | 2018-04-09 20:15 | Consultation ---
DATE OF CONSULTATION: 04/09/2018 CARDIOLOGY CONSULTATION: CONSULTING PHYSICIAN: Kevyn Dillard M.D. REFERRING PHYSICIAN: Jackson Albright M.D. REASON FOR REFERRAL: Hypotension. HISTORY OF PRESENT ILLNESS: This is a middle-aged female, who is really not able to provide any meaningful history whatsoever. Information obtained from the patient's chart and from review of the patient's medical records from last prior hospitalization. The patient was brought in by paramedics apparently from the convalescent facility secondary to increased weakness and lethargy. The patient reports that the patient at baseline, but since morning consciousness she falls back asleep and responds to painful stimuli. Upon evaluation by physical therapist, responded to short answers and then fell asleep again constantly. So, she was brought to the emergency room urgently. Her blood pressure at the facility is 111/66 with respirations of 16, heart rate of 80s. In the emergency room, was seen by the emergency room doctor and was evaluated. Denied any chest pain or shortness of breath according to the ER physician's note and was admitted to the hospital because of toxic metabolic encephalopathy. She has had some low blood pressure readings during dialysis and concern about possibility of pneumonia was raised. The patient at this time is arousable and responsive, but does have shortness of breath. Does not have abdominal pain. No palpitation. However, her responses to the questions are really questionable for accuracy because of her persistent drowsiness or alteration in mentation and therefore, I am not sure I can trust anything as she does say. PAST MEDICAL HISTORY: Positive for history of abnormal liver function tests, thrombocytopenia, transaminitis, anemia, diabetes mellitus, gastritis, hypothyroidism, cirrhosis of the liver, end-stage renal disease, gastroesophageal reflux disease, alcohol abuse, hypertension, congestive heart failure, chronic pain, anemia of chronic disease, ascites, diastolic dysfunction, polysubstance abuse, hyperkalemia, severe deconditioning, malnutrition, depression, history of atrial fibrillation, and COPD as well. MEDICATIONS: She is reportedly not allergic to any medications. SOCIAL HISTORY: Smokes. Denies any alcoholic beverages or drug use at the present time. REVIEW OF SYSTEMS: Really unable to obtain. PHYSICAL EXAMINATION: GENERAL: Shows to be lethargic middle-aged female, in no respiratory distress laying approximately 20 degrees head of bed elevation. She is in the process of being dialyzed. NECK: Supple. LUNGS: Clear to auscultation and percussion. CHEST: Chest wall is tender to palpation in different parts of the chest that I am able to feel. CARDIAC: Regular rate and rhythm. There is a systolic ejection murmur noted. ABDOMEN: Soft, nontender. Positive bowel sounds. EXTREMITIES: There is no clubbing, cyanosis, or edema. Hypotension. Blood pressure is ranging between 66/36 to 90/35, her heart rates in the 70s. She is not tachycardiac. LABORATORY AND DIAGNOSTIC DATA: White count of 5.1, hemoglobin 8.9, and platelet count of 227. Sodium is 136, potassium 5.8, chloride 101, bicarb 26, BUN 77, creatinine 7.3, glucose of 109, calcium is 7.6. Liver function tests are normal. Troponin was 0.035 yesterday. Her proBNP was 16,000 at the time of admission. Albumin is 2. Total cholesterol 140 with LDL of 86 and HDL of 44. TSH of 2.036. ASSESSMENT AND PLAN: 1. Hypotension. 2. COPD. 3. History of diastolic dysfunction. 4. End-stage renal disease, on hemodialysis. 5. Anemia. 6. Hyperkalemia. 7. Moderate mitral and tricuspid regurgitation. 8. Pulmonary hypertension in the 50s. This patient was seen in cardiac consultation. Does not appear to be any kind of respiratory distress. Her electrocardiogram at the time of presentation to the emergency room appears relatively normal. She had a recent echocardiogram here on 03/09/2018 approximately 1 month ago. Ejection fraction was 55 to 60%. Small posterior pericardial effusion is noted. Moderate valvular regurgitation is noted. She has pulmonary systolic pressure in the 50s. The etiology of her hypotension is probably multifactorial and of course, a diagnosis of possible sepsis cannot be entirely excluded as of yet. The patient's blood cultures are pending at this time. I would recommend checking a repeat echocardiogram to make sure there is no significant pericardial effusion that has grown and to consider performing a Cortrosyn stimulation test for checking the cortisol level at least in the morning and repeating EKG. Blood pressure support as needed although she appears to be relatively asymptomatic. She is getting albumin with her dialysis as this helped according to the dialysis nurse with blood pressure maintenance. She will be followed along. Kevyn Dillard M.D. DR: CATHERINE JOB#: [id number] CC:
[2018-04-09] MEDS: TraZODone 50mg tab ORAL SCH (20:28)
[2018-04-10 00:11] VITALS: BP 98/58
[2018-04-10 04:00] VITALS: BP 99/56
[2018-04-10] MEDS: NovoLOG Insulin Flexpen SUBQ SCH ×4 (06:18→21:00)
--- NOTE | 2018-04-10 06:38 | NUR ---
HAND-OFF: Report given to Wily EVANGELISTA.
[2018-04-10 06:55] LABS: BASOPHILS % (AUTO) 1.6 % (0.0-2.0); EOSINOPHILS % (AUTO) 8.6 % (0.0-3.0); HEMATOCRIT 29.6 % (37.0-47.0); HEMOGLOBIN 9.2 G/DL (12.0-16.0); LYMPHOCYTES % (AUTO) 16.2 % (20.0-45.0); MEAN CORPUSCULAR VOLUME 106 FL (80-99); MONOCYTES % (AUTO) 8.5 % (1.0-10.0); NEUTROPHILS % (AUTO) 65.1 % (45.0-75.0); PLATELET COUNT 192 K/UL (150-450); RED CELL DISTRIBUTION WIDTH 18.5 % (11.6-14.8); WHITE BLOOD COUNT 4.4 K/UL (4.8-10.8)
[2018-04-10 07:20] LABS: ANION GAP 11 mmol/L (5-15); BLOOD UREA NITROGEN 50 mg/dL (7-18); CARBON DIOXIDE 28 MMOL/L (21-32); CHLORIDE 100 MMOL/L (98-107); CREATININE 5.5 MG/DL (0.55-1.30); POTASSIUM 4.1 MMOL/L (3.5-5.1); SODIUM 138 MMOL/L (136-145)
[2018-04-10 07:38] LABS: ALANINE AMINOTRANSFERASE 13 U/L (12-78); ALBUMIN 2.4 G/DL (3.4-5.0); ALKALINE PHOSPHATASE 93 U/L (46-116); ASPARTATE AMINO TRANSFERASE 19 U/L (15-37); BILIRUBIN,DIRECT < 0.1 MG/DL (0.0-0.3); BILIRUBIN,TOTAL 0.3 MG/DL (0.2-1.0); PHOSPHORUS 5.2 MG/DL (2.5-4.9)
--- NOTE | 2018-04-10 07:46 | NUR ---
NURSE NOTES: PT AXOX1, CALM, RESTING IN BED. IN NO APPARENT DISTRESS AT THIS TIME. RN ASSISTED PT WITH EATING BREAKFAST. PT ATE 80% OF BREAKFAST. BED IN LOWEST POSITION WITH HOB ELEVATED. CALL LIGHT WITHIN REACH. WILL CONTINUE TO MONITOR.
[2018-04-10 08:00] VITALS: BP 100/53
[2018-04-10] MEDS: Renvela 2400 mg pkt ORAL SCH ×3 (08:23→17:34)
[2018-04-10] MEDS: Heparin 5000 units/ml inj SUBQ SCH ×2 (08:28→21:31)
[2018-04-10 12:00] VITALS: BP 114/65
--- NOTE | 2018-04-10 14:25 | Pulmonology Progress Note ---
Assessment/Plan Problems: (1) COPD (chronic obstructive pulmonary disease) (2) UTI (urinary tract infection) (3) Pulmonary edema (4) Cirrhosis of liver (5) ESRD (end stage renal disease) (6) Diabetes mellitus, type II Assessment/Plan doing better check cultures iv abx HD for ESRF check electrolytes sliding scale diabetic diet Subjective ROS Limited/Unobtainable: No Allergies: Coded Allergies: No Known Allergies (Unverified , 09/20/15) Objective Last 24 Hour Vital Signs Date Time Temp Pulse Resp B/P (MAP) Pulse Ox O2 Delivery O2 Flow Rate FiO2 04/10/18 12:00 98.6 78 19 114/65 (81) 98 04/10/18 09:00 Room Air 04/10/18 08:00 97.7 83 18 100/53 (69) 94 04/10/18 07:23 80 20 Room Air 21 04/10/18 04:00 98.0 81 18 99/56 (70) 04/10/18 00:11 98.0 85 18 98/58 (71) 04/09/18 21:07 98.4 20 95/51 (66) 04/09/18 21:06 Room Air 04/09/18 20:00 98.4 81 95/51 (66) 04/09/18 17:20 Room Air 3.0 04/09/18 16:00 98.2 109 18 93/39 (57) 95 Intake and Output 04/09/18 04/10/18 19:00 07:00 Intake Total 770 ml Output Total 2 ml Balance 770 ml -2 ml Intake Oral 600 ml IV Total 170 ml Output Stool Total 2 ml # Voids 3 # Bowel Movements 1 1 Objective General Appearance: WD/WN HEENT: normocephalic Respiratory/Chest: chest wall non-tender, lungs clear, normal breath sounds Breasts: no masses Cardiovascular: normal peripheral pulses, normal rate Abdomen: normal bowel sounds, soft, non tender Extremities: no cyanosis Skin: no rash Microbiology Date/Time Source Procedure Growth Status 04/08/18 10:25 Blood Blood Culture - Preliminary NO GROWTH AFTER 24 HOURS Resulted 04/08/18 10:10 Blood Blood Culture - Preliminary NO GROWTH AFTER 24 HOURS Resulted 04/08/18 16:50 Nasal Nares MRSA Culture - Final NO METHICILLIN RESISTANT STAPH AUREUS... Complete 04/08/18 10:40 Urine,Clean Catch Urine Culture - Preliminary Escherichia Coli Streptococcus Species Resulted 04/08/18 16:50 Rectum VRE Culture - Final NO VANCOMYCIN RESISTANT ENTEROCOCCUS ... Complete Laboratory Tests 04/10/18 05:20: White Blood Count 4.4L, Red Blood Count 2.80L, Hemoglobin 9.2L, Hematocrit 29.6L , Mean Corpuscular Volume 106H, Mean Corpuscular Hemoglobin 32.9H, Mean Corpuscular Hemoglobin Concent 31.2L, Red Cell Distribution Width 18.5H, Platelet Count 192, Mean Platelet Volume 6.1L, Neutrophils (%) (Auto) 65.1, Lymphocytes (%) (Auto) 16.2L, Monocytes (%) (Auto) 8.5, Eosinophils (%) (Auto) 8.6H, Basophils (%) (Auto) 1.6, Sodium Level 138, Potassium Level 4.1, Chloride Level 100, Carbon Dioxide Level 28, Anion Gap 11, Blood Urea Nitrogen 50H, Creatinine 5.5H, Estimat Glomerular Filtration Rate 9.6, Glucose Level 62L, Calcium Level 8.0L, Phosphorus Level 5.2H, Total Bilirubin 0.3, Direct Bilirubin < 0.1, Aspartate Amino Transf (AST/SGOT) 19, Alanine Aminotransferase (ALT/SGPT) 13, Alkaline Phosphatase 93, Total Protein 5.6L, Albumin 2.4L Current Medications Medications (Trade) Dose Ordered Sig/Ranjan Route PRN Reason Start Time Stop Time Status Last Admin Dose Admin Acetaminophen (Tylenol) 650 mg Q4H PRN ORAL fever 04/08/18 18:45 05/08/18 18:44 Albuterol/ Ipratropium (Albuterol/ Ipratropium) 3 ml Q6H PRN HHN dyspnea 04/08/18 18:45 04/13/18 18:44 Dextrose (Dextrose 50%) STAT PRN IV Hypoglycemia 04/08/18 18:45 05/08/18 18:44 Dextrose (Dextrose 50%) STAT PRN IV Hypoglycemia 04/08/18 18:45 05/08/18 18:44 Heparin Sodium (Porcine) (Heparin 5000 units/ml) 5,000 units EVERY 12 HOURS SUBQ 04/08/18 21:00 05/08/18 20:59 04/10/18 08:28 Hydralazine HCl (Apresoline) 25 mg Q4H PRN ORAL sbp>160 04/08/18 18:45 05/08/18 18:44 Insulin Aspart (NovoLOG) BEFORE MEALS AND HS SUBQ 04/08/18 21:00 05/08/18 20:59 04/09/18 20:36 Levofloxacin 50 ml @ 50 mls/hr Q48H IVPB 04/10/18 21:00 04/17/18 20:59 Levothyroxine Sodium (Synthroid) 88 mcg ACBREAKFAST ORAL 04/09/18 06:30 05/09/18 06:29 04/10/18 06:13 Morphine Sulfate (Morphine Sulfate) 1 mg Q4H PRN IVP For Pain 04/08/18 18:45 04/15/18 18:44 Ondansetron HCl (Zofran) 4 mg Q6H PRN IVP Nausea & Vomiting 04/08/18 18:45 05/08/18 18:44 Polyethylene Glycol (Miralax) 17 gm HSPRN PRN ORAL Constipation 04/08/18 18:45 05/08/18 18:44 Sevelamer Carbonate (Renvela) 2,400 mg THREE TIMES A DAY ORAL 04/09/18 09:00 05/09/18 08:59 04/10/18 13:34 Trazodone HCl (Desyrel) 50 mg BEDTIME ORAL 04/08/18 21:00 05/08/18 20:59 04/09/18 20:28 Zolpidem Tartrate (Ambien) 5 mg HSPRN PRN ORAL Insomnia 04/08/18 18:45 04/15/18 18:44 Bailee Shaw MD Apr 10, 2018 14:25
--- NOTE | 2018-04-10 15:02 | Nephrology Progress Note ---
Assessment/Plan Problem List: (1) ESRD (end stage renal disease) (2) Cirrhosis of liver (3) Hypotension (4) Acute metabolic encephalopathy Assessment (1) ESRD (end stage renal disease) (2) Cirrhosis of liver, ascitis (3) Anemia (4) Diabetes (5) HTN (hypertension), presents with low BP (6) HypoThyroid (7) h/o Atrial Fib Plan hold all bp meds- fluid challenge dialysis again in am 2D echo last admission results noted continue per psych minimize mind altering meds Subjective ROS Limited/Unobtainable: No Constitutional: Reports: malaise Objective Objective Last 24 Hour Vital Signs Date Time Temp Pulse Resp B/P (MAP) Pulse Ox O2 Delivery O2 Flow Rate FiO2 04/10/18 12:00 98.6 78 19 114/65 (81) 98 04/10/18 09:00 Room Air 04/10/18 08:00 97.7 83 18 100/53 (69) 94 04/10/18 07:23 80 20 Room Air 21 04/10/18 04:00 98.0 81 18 99/56 (70) 04/10/18 00:11 98.0 85 18 98/58 (71) 04/09/18 21:07 98.4 20 95/51 (66) 04/09/18 21:06 Room Air 04/09/18 20:00 98.4 81 95/51 (66) 04/09/18 17:20 Room Air 3.0 04/09/18 16:00 98.2 109 18 93/39 (57) 95 Intake and Output 04/09/18 04/10/18 19:00 07:00 Intake Total 770 ml Output Total 2 ml Balance 770 ml -2 ml Intake Oral 600 ml IV Total 170 ml Output Stool Total 2 ml # Voids 3 # Bowel Movements 1 1 Laboratory Tests 04/10/18 05:20: White Blood Count 4.4L, Red Blood Count 2.80L, Hemoglobin 9.2L, Hematocrit 29.6L , Mean Corpuscular Volume 106H, Mean Corpuscular Hemoglobin 32.9H, Mean Corpuscular Hemoglobin Concent 31.2L, Red Cell Distribution Width 18.5H, Platelet Count 192, Mean Platelet Volume 6.1L, Neutrophils (%) (Auto) 65.1, Lymphocytes (%) (Auto) 16.2L, Monocytes (%) (Auto) 8.5, Eosinophils (%) (Auto) 8.6H, Basophils (%) (Auto) 1.6, Sodium Level 138, Potassium Level 4.1, Chloride Level 100, Carbon Dioxide Level 28, Anion Gap 11, Blood Urea Nitrogen 50H, Creatinine 5.5H, Estimat Glomerular Filtration Rate 9.6, Glucose Level 62L, Calcium Level 8.0L, Phosphorus Level 5.2H, Total Bilirubin 0.3, Direct Bilirubin < 0.1, Aspartate Amino Transf (AST/SGOT) 19, Alanine Aminotransferase (ALT/SGPT) 13, Alkaline Phosphatase 93, Total Protein 5.6L, Albumin 2.4L Height (Feet): 5 Height (Inches): 10.00 Weight (Pounds): 180 General Appearance: no apparent distress, lethargic, other - more responsive than before Cardiovascular: normal rate Respiratory/Chest: decreased breath sounds Abdomen: soft Archie Sargent MD Apr 10, 2018 15:02
[2018-04-10 16:00] VITALS: BP 128/58
--- NOTE | 2018-04-10 17:00 | NUR ---
NURSE NOTES: CONFIRMED WITH SEAN FROM [facility] FOR HD ORDER TOMORROW.
[2018-04-10] MEDS: cefTRIAXone 1gm/D5W 55ml IVPB SCH ×2 (18:03)
--- NOTE | 2018-04-10 19:54 | NUR ---
HAND-OFF: Report given to June REICH RN.
[2018-04-10 20:00] VITALS: BP 113/61
--- NOTE | 2018-04-10 20:00 | Internal Med Progress Note ---
Subjective Date of Service: Apr 10, 2018 Physician Name Adair Huerta Attending Physician Jackson Albright MD Current Medications Medications (Trade) Dose Ordered Sig/Ranjan Route PRN Reason Start Time Stop Time Status Last Admin Dose Admin Acetaminophen (Tylenol) 650 mg Q4H PRN ORAL fever 04/08/18 18:45 05/08/18 18:44 Albuterol/ Ipratropium (Albuterol/ Ipratropium) 3 ml Q6H PRN HHN dyspnea 04/08/18 18:45 04/13/18 18:44 Ceftriaxone Sodium 1 gm/ Dextrose 55 ml @ 110 mls/hr Q24H IVPB 04/10/18 17:00 04/17/18 16:59 04/10/18 18:03 Dextrose (Dextrose 50%) STAT PRN IV Hypoglycemia 04/08/18 18:45 05/08/18 18:44 Dextrose (Dextrose 50%) STAT PRN IV Hypoglycemia 04/08/18 18:45 05/08/18 18:44 Heparin Sodium (Porcine) (Heparin 5000 units/ml) 5,000 units EVERY 12 HOURS SUBQ 04/08/18 21:00 05/08/18 20:59 04/10/18 08:28 Hydralazine HCl (Apresoline) 25 mg Q4H PRN ORAL sbp>160 04/08/18 18:45 05/08/18 18:44 Insulin Aspart (NovoLOG) BEFORE MEALS AND HS SUBQ 04/08/18 21:00 05/08/18 20:59 04/09/18 20:36 Levothyroxine Sodium (Synthroid) 88 mcg ACBREAKFAST ORAL 04/09/18 06:30 05/09/18 06:29 04/10/18 06:13 Morphine Sulfate (Morphine Sulfate) 1 mg Q4H PRN IVP For Pain 04/08/18 18:45 04/15/18 18:44 Ondansetron HCl (Zofran) 4 mg Q6H PRN IVP Nausea & Vomiting 04/08/18 18:45 05/08/18 18:44 Polyethylene Glycol (Miralax) 17 gm HSPRN PRN ORAL Constipation 04/08/18 18:45 05/08/18 18:44 Sevelamer Carbonate (Renvela) 2,400 mg THREE TIMES A DAY ORAL 04/09/18 09:00 05/09/18 08:59 04/10/18 17:34 Trazodone HCl (Desyrel) 50 mg BEDTIME ORAL 04/08/18 21:00 05/08/18 20:59 04/09/18 20:28 Zolpidem Tartrate (Ambien) 5 mg HSPRN PRN ORAL Insomnia 04/08/18 18:45 04/15/18 18:44 Allergies: Coded Allergies: No Known Allergies (Unverified , 09/20/15) ROS Limited/Unobtainable: Yes Subjective 63 YO F admitted with altered mental status. Now UTI. Cover for Int Med-Dr Albright Objective Last Vital Signs Date Time Temp Pulse Resp B/P (MAP) Pulse Ox O2 Delivery O2 Flow Rate FiO2 04/10/18 16:00 98.5 79 18 128/58 (81) 97 04/10/18 09:00 Room Air 04/10/18 07:23 21 04/09/18 17:20 3.0 Laboratory Tests Test 04/10/18 05:20 White Blood Count 4.4 K/UL (4.8-10.8) L Red Blood Count 2.80 M/UL (4.20-5.40) L Hemoglobin 9.2 G/DL (12.0-16.0) L Hematocrit 29.6 % (37.0-47.0) L Mean Corpuscular Volume 106 FL (80-99) H Mean Corpuscular Hemoglobin 32.9 PG (27.0-31.0) H Mean Corpuscular Hemoglobin Concent 31.2 G/DL (32.0-36.0) L Red Cell Distribution Width 18.5 % (11.6-14.8) H Platelet Count 192 K/UL (150-450) Mean Platelet Volume 6.1 FL (6.5-10.1) L Neutrophils (%) (Auto) 65.1 % (45.0-75.0) Lymphocytes (%) (Auto) 16.2 % (20.0-45.0) L Monocytes (%) (Auto) 8.5 % (1.0-10.0) Eosinophils (%) (Auto) 8.6 % (0.0-3.0) H Basophils (%) (Auto) 1.6 % (0.0-2.0) Sodium Level 138 MMOL/L (136-145) Potassium Level 4.1 MMOL/L (3.5-5.1) Chloride Level 100 MMOL/L (98-107) Carbon Dioxide Level 28 MMOL/L (21-32) Anion Gap 11 mmol/L (5-15) Blood Urea Nitrogen 50 mg/dL (7-18) H Creatinine 5.5 MG/DL (0.55-1.30) H Estimat Glomerular Filtration Rate 9.6 mL/min (>60) Glucose Level 62 MG/DL (74-106) L Calcium Level 8.0 MG/DL (8.5-10.1) L Phosphorus Level 5.2 MG/DL (2.5-4.9) H Total Bilirubin 0.3 MG/DL (0.2-1.0) Direct Bilirubin < 0.1 MG/DL (0.0-0.3) Aspartate Amino Transf (AST/SGOT) 19 U/L (15-37) Alanine Aminotransferase (ALT/SGPT) 13 U/L (12-78) Alkaline Phosphatase 93 U/L (46-116) Total Protein 5.6 G/DL (6.4-8.2) L Albumin 2.4 G/DL (3.4-5.0) L Microbiology Date/Time Source Procedure Growth Status 04/08/18 10:25 Blood Blood Culture - Preliminary NO GROWTH AFTER 24 HOURS Resulted 04/08/18 10:10 Blood Blood Culture - Preliminary NO GROWTH AFTER 24 HOURS Resulted 04/08/18 16:50 Nasal Nares MRSA Culture - Final NO METHICILLIN RESISTANT STAPH AUREUS... Complete 04/08/18 10:40 Urine,Clean Catch Urine Culture - Preliminary Escherichia Coli Streptococcus Species Resulted 04/08/18 16:50 Rectum VRE Culture - Final NO VANCOMYCIN RESISTANT ENTEROCOCCUS ... Complete Intake and Output 04/09/18 04/10/18 19:00 07:00 Intake Total 770 ml Output Total 2 ml Balance 770 ml -2 ml Intake Oral 600 ml IV Total 170 ml Output Stool Total 2 ml # Voids 3 # Bowel Movements 1 1 Objective PHYSICAL EXAMINATION: GENERAL: The patient is well-developed and well-nourished female, who is arousable, however, lethargic. HEENT: Eyes, pupils are equal and responsive to light and accommodation. Extraocular movements are intact. NECK: Supple without lymphadenopathy. CHEST: Lungs are clear to auscultation bilaterally without wheezes or rales. CARDIOVASCULAR: Regular rhythm and rate. S1 and S2 are normal without murmurs, rubs, or gallops. ABDOMEN: Soft, nontender, and nondistended. Positive bowel sounds. No evidence of hepatosplenomegaly. Currently, no rebound or guarding noted. EXTREMITIES: Negative for clubbing, cyanosis, or edema. RECTAL/GENITAL: Refused. NEUROLOGICAL: Cranial nerves II through XII are grossly intact without focal deficits. Motor strength is 5/5 bilaterally . Deep tendon reflexes are 2+ plantar. Assessment/Plan Assessment/Plan ASSESSMENT: This is a 63-year-old female. 1. Altered mental status. 2. End-stage renal disease, on hemodialysis. 3. Congestive heart failure. 4. Diabetes type 2. 5. Diabetic peripheral neuropathy. 6. Chronic obstructive pulmonary disease. 7. Cirrhosis of the liver. 8. Ascites. 9. Hypothyroidism. 10. Hypertension. 11. Coronary artery disease. 12. Urinary Tract Infection-E. Coli and Strep sp TREATMENT: 1. Altered mental status/lethargy. This may be secondary to congestive heart failure. The patient will receive aggressive diuresis during dialysis. A Nephrology consultation has been obtained with Dr. Sargent. 2. Diabetes type 2. The patient has been started on a NovoLog sliding scale. 3. Hypothyroidism. Continue Synthroid as above. 4. Hypertension. Continue amlodipine and Coreg as above. 5. Coronary artery disease, status post myocardial infarction. 6. Congestive heart failure. This may be secondary to volume overload. A Cardiology consultation is pending. Diuresis will be obtained via dialysis. 7. Chronic obstructive pulmonary disease. A Pulmonary consultation has been obtained with Dr. Bailee Shaw. 8. Cirrhosis of the liver. 9. Ascites. 10. Continue ceftriaxone Adair Huerta MD Apr 10, 2018 20:00
--- NOTE | 2018-04-10 20:35 | Cardiology Progress Note ---
Assessment/Plan Assessment/Plan 1. Hypotension. 2. COPD. 3. History of diastolic dysfunction. 4. End-stage renal disease, on hemodialysis. 5. Anemia. 6. Hyperkalemia. 7. Moderate mitral and tricuspid regurgitation. 8. Pulmonary hypertension in the 50s. echo pending cortisol drwn looks katerine r bp still on the lower side but ok Subjective Cardiovascular: Denies: chest pain, lightheadedness, palpitations Respiratory: Denies: shortness of breath Gastrointestinal/Abdominal: Denies: abdominal pain Genitourinary: Denies: burning Objective Last 24 Hour Vital Signs Date Time Temp Pulse Resp B/P (MAP) Pulse Ox O2 Delivery O2 Flow Rate FiO2 04/10/18 16:00 98.5 79 18 128/58 (81) 97 04/10/18 12:00 98.6 78 19 114/65 (81) 98 04/10/18 09:00 Room Air 04/10/18 08:00 97.7 83 18 100/53 (69) 94 04/10/18 07:23 80 20 Room Air 21 04/10/18 04:00 98.0 81 18 99/56 (70) 04/10/18 00:11 98.0 85 18 98/58 (71) 04/09/18 21:07 98.4 20 95/51 (66) 04/09/18 21:06 Room Air General Appearance: no apparent distress, alert Cardiovascular: normal rate Respiratory/Chest: lungs clear Abdomen: normal bowel sounds, non tender, soft Extremities: no swelling Intake and Output 04/09/18 04/10/18 19:00 07:00 Intake Total 770 ml Output Total 2 ml Balance 770 ml -2 ml Intake Oral 600 ml IV Total 170 ml Output Stool Total 2 ml # Voids 3 # Bowel Movements 1 1 Laboratory Tests Test 04/10/18 05:20 White Blood Count 4.4 K/UL (4.8-10.8) L Red Blood Count 2.80 M/UL (4.20-5.40) L Hemoglobin 9.2 G/DL (12.0-16.0) L Hematocrit 29.6 % (37.0-47.0) L Mean Corpuscular Volume 106 FL (80-99) H Mean Corpuscular Hemoglobin 32.9 PG (27.0-31.0) H Mean Corpuscular Hemoglobin Concent 31.2 G/DL (32.0-36.0) L Red Cell Distribution Width 18.5 % (11.6-14.8) H Platelet Count 192 K/UL (150-450) Mean Platelet Volume 6.1 FL (6.5-10.1) L Neutrophils (%) (Auto) 65.1 % (45.0-75.0) Lymphocytes (%) (Auto) 16.2 % (20.0-45.0) L Monocytes (%) (Auto) 8.5 % (1.0-10.0) Eosinophils (%) (Auto) 8.6 % (0.0-3.0) H Basophils (%) (Auto) 1.6 % (0.0-2.0) Sodium Level 138 MMOL/L (136-145) Potassium Level 4.1 MMOL/L (3.5-5.1) Chloride Level 100 MMOL/L (98-107) Carbon Dioxide Level 28 MMOL/L (21-32) Anion Gap 11 mmol/L (5-15) Blood Urea Nitrogen 50 mg/dL (7-18) H Creatinine 5.5 MG/DL (0.55-1.30) H Estimat Glomerular Filtration Rate 9.6 mL/min (>60) Glucose Level 62 MG/DL (74-106) L Calcium Level 8.0 MG/DL (8.5-10.1) L Phosphorus Level 5.2 MG/DL (2.5-4.9) H Total Bilirubin 0.3 MG/DL (0.2-1.0) Direct Bilirubin < 0.1 MG/DL (0.0-0.3) Aspartate Amino Transf (AST/SGOT) 19 U/L (15-37) Alanine Aminotransferase (ALT/SGPT) 13 U/L (12-78) Alkaline Phosphatase 93 U/L (46-116) Total Protein 5.6 G/DL (6.4-8.2) L Albumin 2.4 G/DL (3.4-5.0) L Microbiology Date/Time Source Procedure Growth Status 04/08/18 10:25 Blood Blood Culture - Preliminary NO GROWTH AFTER 24 HOURS Resulted 04/08/18 10:10 Blood Blood Culture - Preliminary NO GROWTH AFTER 24 HOURS Resulted 04/08/18 16:50 Nasal Nares MRSA Culture - Final NO METHICILLIN RESISTANT STAPH AUREUS... Complete 04/08/18 10:40 Urine,Clean Catch Urine Culture - Preliminary Escherichia Coli Streptococcus Species Resulted 04/08/18 16:50 Rectum VRE Culture - Final NO VANCOMYCIN RESISTANT ENTEROCOCCUS ... Complete Kevyn Dillard MD Apr 10, 2018 20:35
[2018-04-10] MEDS ORDERED: Levofloxacin 250mg/D5W 50ml IVPB SCH (21:00)
[2018-04-10] MEDS: TraZODone 50mg tab ORAL SCH (21:28)
--- NOTE | 2018-04-10 21:36 | General Progress Note ---
Assessment/Plan Problem List: (1) Acute metabolic encephalopathy ICD Codes: G93.41 - Metabolic encephalopathy SNOMED: 00351563, [id number] (2) MDD (major depressive disorder), recurrent episode ICD Codes: F33.9 - Major depressive disorder, recurrent, unspecified SNOMED: 381783478 Status: unchanged Assessment/Plan dc trazodone 50mg po qhs Seroquel 25mg po q6hr/prn/anxiety Subjective Constitutional: Reports: malaise, weakness Allergies: Coded Allergies: No Known Allergies (Unverified , 09/20/15) Objective Last 24 Hour Vital Signs Date Time Temp Pulse Resp B/P (MAP) Pulse Ox O2 Delivery O2 Flow Rate FiO2 04/10/18 16:00 98.5 79 18 128/58 (81) 97 04/10/18 12:00 98.6 78 19 114/65 (81) 98 04/10/18 09:00 Room Air 04/10/18 08:00 97.7 83 18 100/53 (69) 94 04/10/18 07:23 80 20 Room Air 21 04/10/18 04:00 98.0 81 18 99/56 (70) 04/10/18 00:11 98.0 85 18 98/58 (71) Intake and Output 04/09/18 04/10/18 18:59 06:59 Intake Total 770 ml Output Total 2 ml Balance 770 ml -2 ml Intake Oral 600 ml IV Total 170 ml Output Stool Total 2 ml # Voids 3 # Bowel Movements 1 1 Laboratory Tests 04/10/18 05:20: White Blood Count 4.4L, Red Blood Count 2.80L, Hemoglobin 9.2L, Hematocrit 29.6L , Mean Corpuscular Volume 106H, Mean Corpuscular Hemoglobin 32.9H, Mean Corpuscular Hemoglobin Concent 31.2L, Red Cell Distribution Width 18.5H, Platelet Count 192, Mean Platelet Volume 6.1L, Neutrophils (%) (Auto) 65.1, Lymphocytes (%) (Auto) 16.2L, Monocytes (%) (Auto) 8.5, Eosinophils (%) (Auto) 8.6H, Basophils (%) (Auto) 1.6, Sodium Level 138, Potassium Level 4.1, Chloride Level 100, Carbon Dioxide Level 28, Anion Gap 11, Blood Urea Nitrogen 50H, Creatinine 5.5H, Estimat Glomerular Filtration Rate 9.6, Glucose Level 62L, Calcium Level 8.0L, Phosphorus Level 5.2H, Total Bilirubin 0.3, Direct Bilirubin < 0.1, Aspartate Amino Transf (AST/SGOT) 19, Alanine Aminotransferase (ALT/SGPT) 13, Alkaline Phosphatase 93, Total Protein 5.6L, Albumin 2.4L Height (Feet): 5 Height (Inches): 10.00 Weight (Pounds): 180 General Appearance: no apparent distress, lethargic Eric Galan MD Apr 10, 2018 21:36
[2018-04-11] VITALS: BP 117/66
[2018-04-11 04:00] VITALS: BP 114/61
[2018-04-11] MEDS: NovoLOG Insulin Flexpen SUBQ SCH ×4 (06:30→21:00)
--- NOTE | 2018-04-11 07:30 | NUR ---
HAND-OFF: Report given to NORMA EVANGELISTA.
--- NOTE | 2018-04-11 07:45 | NUR ---
NURSE NOTES: Received patient from bed awake, no s/s of any distress, denies any pain. IV line patent and intact, Right UA AV shunt noted with bruit. Patient is for dialysis today, per AM nurse she called [facility] of [facility]. Bed in low position and locked, call light within reach, will continue to monitor.
[2018-04-11 08:00] VITALS: BP 130/72
[2018-04-11 08:00] LABS: BASOPHILS % (AUTO) 2.7 % (0.0-2.0); HEMOGLOBIN 9.3 G/DL (12.0-16.0); LYMPHOCYTES % (AUTO) 16.8 % (20.0-45.0); MEAN CORPUSCULAR VOLUME 105 FL (80-99); MONOCYTES % (AUTO) 11.3 % (1.0-10.0); NEUTROPHILS % (AUTO) 57.1 % (45.0-75.0); PLATELET COUNT 202 K/UL (150-450); RED BLOOD COUNT 2.78 M/UL (4.20-5.40); RED CELL DISTRIBUTION WIDTH 18.3 % (11.6-14.8); WHITE BLOOD COUNT 4.1 K/UL (4.8-10.8)
[2018-04-11 08:36] LABS: BLOOD UREA NITROGEN 65 mg/dL (7-18); CALCIUM 7.7 MG/DL (8.5-10.1); CHLORIDE 100 MMOL/L (98-107); CREATININE 6.5 MG/DL (0.55-1.30); POTASSIUM 4.4 MMOL/L (3.5-5.1); SODIUM 138 MMOL/L (136-145)
[2018-04-11] MEDS: Renvela 2400 mg pkt ORAL SCH ×3 (08:46→17:35)
[2018-04-11] MEDS: Heparin 5000 units/ml inj SUBQ SCH ×3 (08:50→22:27)
[2018-04-11 09:00] LABS: CARBON DIOXIDE 24 MMOL/L (21-32)
[2018-04-11 09:01] LABS: ANION GAP 14 mmol/L (5-15)
[2018-04-11 12:00] VITALS: BP 147/88
--- NOTE | 2018-04-11 13:38 | Pulmonology Progress Note ---
Assessment/Plan Problems: (1) COPD (chronic obstructive pulmonary disease) (2) UTI (urinary tract infection) (3) ESRD (end stage renal disease) (4) Pulmonary edema (5) Hypothyroidism (6) Cirrhosis of liver Assessment/Plan check cultures echoli in urine iv abx HD for ESRF check electrolytes sliding scale diabetic diet Subjective ROS Limited/Unobtainable: No Constitutional: Reports: no symptoms HEENT: Repors: no symptoms Respiratory: Reports: no symptoms Cardiovascular: Reports: no symptoms Allergies: Coded Allergies: No Known Allergies (Unverified , 09/20/15) Objective Last 24 Hour Vital Signs Date Time Temp Pulse Resp B/P (MAP) Pulse Ox O2 Delivery O2 Flow Rate FiO2 04/11/18 12:00 98.2 85 20 147/88 (107) 93 04/11/18 09:12 71 16 Room Air 21 04/11/18 09:00 Room Air 04/11/18 08:00 97.2 91 20 130/72 (91) 93 04/11/18 04:00 98.4 71 18 114/61 (78) 99 04/11/18 00:00 98.6 79 18 117/66 (83) 99 04/10/18 21:00 Room Air 04/10/18 20:13 75 16 Room Air 21 04/10/18 20:00 98.3 84 18 113/61 (78) 98 04/10/18 16:00 98.5 79 18 128/58 (81) 97 Intake and Output 04/10/18 04/11/18 19:00 07:00 Intake Total 535 ml Balance 535 ml Intake Oral 480 ml IV Total 55 ml # Bowel Movements 4 2 Objective General Appearance: WD/WN HEENT: normocephalic Respiratory/Chest: chest wall non-tender, lungs clear, normal breath sounds Breasts: no masses Cardiovascular: normal peripheral pulses, normal rate Abdomen: normal bowel sounds, soft, non tender Extremities: no cyanosis Skin: no rash Microbiology Date/Time Source Procedure Growth Status 04/08/18 16:50 Nasal Nares MRSA Culture - Final NO METHICILLIN RESISTANT STAPH AUREUS... Complete 04/10/18 19:45 Stool Clostridium difficile Toxin Assay - Final Complete 04/08/18 16:50 Rectum - Final NO CARBAPENEM-RESISTANT ENTEROBACTERI... Complete 04/08/18 16:50 Rectum VRE Culture - Final NO VANCOMYCIN RESISTANT ENTEROCOCCUS ... Complete Laboratory Tests 04/11/18 06:58: White Blood Count 4.1L, Red Blood Count 2.78L, Hemoglobin 9.3L, Hematocrit 29.0L , Mean Corpuscular Volume 105H, Mean Corpuscular Hemoglobin 33.4H, Mean Corpuscular Hemoglobin Concent 31.9L, Red Cell Distribution Width 18.3H, Platelet Count 202, Mean Platelet Volume 6.0L, Neutrophils (%) (Auto) 57.1, Lymphocytes (%) (Auto) 16.8L, Monocytes (%) (Auto) 11.3H, Eosinophils (%) (Auto ) 12.0H, Basophils (%) (Auto) 2.7H, Sodium Level 138, Potassium Level 4.4, Chloride Level 100, Carbon Dioxide Level 24, Anion Gap 14, Blood Urea Nitrogen 65H, Creatinine 6.5H, Estimat Glomerular Filtration Rate 7.9, Glucose Level 76, Calcium Level 7.7L Current Medications Medications (Trade) Dose Ordered Sig/Ranjan Route PRN Reason Start Time Stop Time Status Last Admin Dose Admin Acetaminophen (Tylenol) 650 mg Q4H PRN ORAL fever 04/08/18 18:45 05/08/18 18:44 Albuterol/ Ipratropium (Albuterol/ Ipratropium) 3 ml Q6H PRN HHN dyspnea 04/08/18 18:45 04/13/18 18:44 Ceftriaxone Sodium 1 gm/ Dextrose 55 ml @ 110 mls/hr Q24H IVPB 04/10/18 17:00 04/17/18 16:59 04/10/18 18:03 Dextrose (Dextrose 50%) STAT PRN IV Hypoglycemia 04/08/18 18:45 05/08/18 18:44 Dextrose (Dextrose 50%) STAT PRN IV Hypoglycemia 04/08/18 18:45 05/08/18 18:44 Heparin Sodium (Porcine) (Heparin 5000 units/ml) 5,000 units EVERY 12 HOURS SUBQ 04/08/18 21:00 05/08/18 20:59 04/11/18 08:50 Hydralazine HCl (Apresoline) 25 mg Q4H PRN ORAL sbp>160 04/08/18 18:45 05/08/18 18:44 Insulin Aspart (NovoLOG) BEFORE MEALS AND HS SUBQ 04/08/18 21:00 05/08/18 20:59 04/11/18 12:45 Levothyroxine Sodium (Synthroid) 88 mcg ACBREAKFAST ORAL 04/09/18 06:30 05/09/18 06:29 04/11/18 07:10 Morphine Sulfate (Morphine Sulfate) 1 mg Q4H PRN IVP For Pain 04/08/18 18:45 04/15/18 18:44 Ondansetron HCl (Zofran) 4 mg Q6H PRN IVP Nausea & Vomiting 04/08/18 18:45 05/08/18 18:44 Polyethylene Glycol (Miralax) 17 gm HSPRN PRN ORAL Constipation 04/08/18 18:45 05/08/18 18:44 Quetiapine Fumarate (SEROquel) 25 mg Q6H PRN ORAL For Anxiety 04/10/18 22:30 05/10/18 22:29 Sevelamer Carbonate (Renvela) 2,400 mg THREE TIMES A DAY ORAL 04/09/18 09:00 05/09/18 08:59 04/11/18 12:42 Zolpidem Tartrate (Ambien) 5 mg HSPRN PRN ORAL Insomnia 04/08/18 18:45 04/15/18 18:44 Bailee Shaw MD Apr 11, 2018 13:37
[2018-04-11 16:00] VITALS: BP 145/83
--- NOTE | 2018-04-11 16:14 | Nephrology Progress Note ---
Assessment/Plan Problem List: (1) ESRD (end stage renal disease) (2) Cirrhosis of liver (3) Hypotension (4) Acute metabolic encephalopathy Assessment (1) ESRD (end stage renal disease) (2) Cirrhosis of liver, ascitis (3) Anemia (4) Diabetes (5) HTN (hypertension), presents with low BP (6) HypoThyroid (7) h/o Atrial Fib Plan may need to start BP meds again dialysis again in am 2D echo last admission results noted continue per psych minimize mind altering meds Dc planning? Subjective ROS Limited/Unobtainable: No Constitutional: Reports: other - much more awake Objective Objective Last 24 Hour Vital Signs Date Time Temp Pulse Resp B/P (MAP) Pulse Ox O2 Delivery O2 Flow Rate FiO2 04/11/18 12:00 98.2 85 20 147/88 (107) 93 04/11/18 09:12 71 16 Room Air 21 04/11/18 09:00 Room Air 04/11/18 08:00 97.2 91 20 130/72 (91) 93 04/11/18 04:00 98.4 71 18 114/61 (78) 99 04/11/18 00:00 98.6 79 18 117/66 (83) 99 04/10/18 21:00 Room Air 04/10/18 20:13 75 16 Room Air 21 04/10/18 20:00 98.3 84 18 113/61 (78) 98 Intake and Output 04/10/18 04/11/18 19:00 07:00 Intake Total 535 ml Balance 535 ml Intake Oral 480 ml IV Total 55 ml # Bowel Movements 4 2 Laboratory Tests 04/11/18 06:58: White Blood Count 4.1L, Red Blood Count 2.78L, Hemoglobin 9.3L, Hematocrit 29.0L , Mean Corpuscular Volume 105H, Mean Corpuscular Hemoglobin 33.4H, Mean Corpuscular Hemoglobin Concent 31.9L, Red Cell Distribution Width 18.3H, Platelet Count 202, Mean Platelet Volume 6.0L, Neutrophils (%) (Auto) 57.1, Lymphocytes (%) (Auto) 16.8L, Monocytes (%) (Auto) 11.3H, Eosinophils (%) (Auto ) 12.0H, Basophils (%) (Auto) 2.7H, Sodium Level 138, Potassium Level 4.4, Chloride Level 100, Carbon Dioxide Level 24, Anion Gap 14, Blood Urea Nitrogen 65H, Creatinine 6.5H, Estimat Glomerular Filtration Rate 7.9, Glucose Level 76, Calcium Level 7.7L Height (Feet): 5 Height (Inches): 10.00 Weight (Pounds): 178 General Appearance: no apparent distress Cardiovascular: normal rate Respiratory/Chest: decreased breath sounds Abdomen: soft Objective no change Archie Sargent MD Apr 11, 2018 16:14
[2018-04-11] MEDS: cefTRIAXone 1gm/D5W 55ml IVPB SCH ×2 (17:48)
[2018-04-11 20:00] VITALS: BP 157/75
--- NOTE | 2018-04-11 20:13 | Internal Med Progress Note ---
Subjective Date of Service: Apr 11, 2018 Physician Name Adair Huerta Attending Physician Jackson Albright MD Current Medications Medications (Trade) Dose Ordered Sig/Ranjan Route PRN Reason Start Time Stop Time Status Last Admin Dose Admin Acetaminophen (Tylenol) 650 mg Q4H PRN ORAL fever 04/08/18 18:45 05/08/18 18:44 Albuterol/ Ipratropium (Albuterol/ Ipratropium) 3 ml Q6H PRN HHN dyspnea 04/08/18 18:45 04/13/18 18:44 Ceftriaxone Sodium 1 gm/ Dextrose 55 ml @ 110 mls/hr Q24H IVPB 04/10/18 17:00 04/17/18 16:59 04/11/18 17:48 Dextrose (Dextrose 50%) STAT PRN IV Hypoglycemia 04/08/18 18:45 05/08/18 18:44 Dextrose (Dextrose 50%) STAT PRN IV Hypoglycemia 04/08/18 18:45 05/08/18 18:44 Heparin Sodium (Porcine) (Heparin 5000 units/ml) 5,000 units EVERY 12 HOURS SUBQ 04/08/18 21:00 05/08/18 20:59 04/11/18 08:50 Hydralazine HCl (Apresoline) 25 mg Q4H PRN ORAL sbp>160 04/08/18 18:45 05/08/18 18:44 Insulin Aspart (NovoLOG) BEFORE MEALS AND HS SUBQ 04/08/18 21:00 05/08/18 20:59 04/11/18 12:45 Levothyroxine Sodium (Synthroid) 88 mcg ACBREAKFAST ORAL 04/09/18 06:30 05/09/18 06:29 04/11/18 07:10 Morphine Sulfate (Morphine Sulfate) 1 mg Q4H PRN IVP For Pain 04/08/18 18:45 04/15/18 18:44 Ondansetron HCl (Zofran) 4 mg Q6H PRN IVP Nausea & Vomiting 04/08/18 18:45 05/08/18 18:44 Polyethylene Glycol (Miralax) 17 gm HSPRN PRN ORAL Constipation 04/08/18 18:45 05/08/18 18:44 Quetiapine Fumarate (SEROquel) 25 mg Q6H PRN ORAL For Anxiety 04/10/18 22:30 05/10/18 22:29 Sevelamer Carbonate (Renvela) 2,400 mg THREE TIMES A DAY ORAL 04/09/18 09:00 05/09/18 08:59 04/11/18 17:35 Zolpidem Tartrate (Ambien) 5 mg HSPRN PRN ORAL Insomnia 04/08/18 18:45 04/15/18 18:44 Allergies: Coded Allergies: No Known Allergies (Unverified , 09/20/15) ROS Limited/Unobtainable: No Constitutional: Reports: no symptoms HEENT: Reports: no symptoms Cardiovascular: Reports: no symptoms Respiratory: Reports: no symptoms Gastrointestinal/Abdominal: Reports: no symptoms Genitourinary: Reports: no symptoms Neurologic/Psychiatric: Reports: no symptoms Subjective 63 YO F admitted with altered mental status. Now UTI. Cover for Int [facility]-Dr Albright Objective Last Vital Signs Date Time Temp Pulse Resp B/P (MAP) Pulse Ox O2 Delivery O2 Flow Rate FiO2 04/11/18 16:00 98.3 84 20 145/83 (103) 93 04/11/18 09:12 Room Air 21 04/09/18 17:20 3.0 Laboratory Tests Test 04/11/18 06:58 White Blood Count 4.1 K/UL (4.8-10.8) L Red Blood Count 2.78 M/UL (4.20-5.40) L Hemoglobin 9.3 G/DL (12.0-16.0) L Hematocrit 29.0 % (37.0-47.0) L Mean Corpuscular Volume 105 FL (80-99) H Mean Corpuscular Hemoglobin 33.4 PG (27.0-31.0) H Mean Corpuscular Hemoglobin Concent 31.9 G/DL (32.0-36.0) L Red Cell Distribution Width 18.3 % (11.6-14.8) H Platelet Count 202 K/UL (150-450) Mean Platelet Volume 6.0 FL (6.5-10.1) L Neutrophils (%) (Auto) 57.1 % (45.0-75.0) Lymphocytes (%) (Auto) 16.8 % (20.0-45.0) L Monocytes (%) (Auto) 11.3 % (1.0-10.0) H Eosinophils (%) (Auto) 12.0 % (0.0-3.0) H Basophils (%) (Auto) 2.7 % (0.0-2.0) H Sodium Level 138 MMOL/L (136-145) Potassium Level 4.4 MMOL/L (3.5-5.1) Chloride Level 100 MMOL/L (98-107) Carbon Dioxide Level 24 MMOL/L (21-32) Anion Gap 14 mmol/L (5-15) Blood Urea Nitrogen 65 mg/dL (7-18) H Creatinine 6.5 MG/DL (0.55-1.30) H Estimat Glomerular Filtration Rate 7.9 mL/min (>60) Glucose Level 76 MG/DL (74-106) Calcium Level 7.7 MG/DL (8.5-10.1) L Microbiology Date/Time Source Procedure Growth Status 04/10/18 19:45 Stool Clostridium difficile Toxin Assay - Final Complete Intake and Output 04/10/18 04/11/18 19:00 07:00 Intake Total 535 ml Balance 535 ml Intake Oral 480 ml IV Total 55 ml # Bowel Movements 4 2 Objective PHYSICAL EXAMINATION: GENERAL: The patient is well-developed and well-nourished female, who is arousable, however, lethargic. HEENT: Eyes, pupils are equal and responsive to light and accommodation. Extraocular movements are intact. NECK: Supple without lymphadenopathy. CHEST: Lungs are clear to auscultation bilaterally without wheezes or rales. CARDIOVASCULAR: Regular rhythm and rate. S1 and S2 are normal without murmurs, rubs, or gallops. ABDOMEN: Soft, nontender, and nondistended. Positive bowel sounds. No evidence of hepatosplenomegaly. Currently, no rebound or guarding noted. EXTREMITIES: Negative for clubbing, cyanosis, or edema. RECTAL/GENITAL: Refused. NEUROLOGICAL: Cranial nerves II through XII are grossly intact without focal deficits. Motor strength is 5/5 bilaterally . Deep tendon reflexes are 2+ plantar. Assessment/Plan Assessment/Plan ASSESSMENT: This is a 63-year-old female. 1. Altered mental status. 2. End-stage renal disease, on hemodialysis. 3. Congestive heart failure. 4. Diabetes type 2. 5. Diabetic peripheral neuropathy. 6. Chronic obstructive pulmonary disease. 7. Cirrhosis of the liver. 8. Ascites. 9. Hypothyroidism. 10. Hypertension. 11. Coronary artery disease. 12. Urinary Tract Infection-E. Coli and Strep sp TREATMENT: 1. Altered mental status/lethargy. This may be secondary to congestive heart failure. The patient will receive aggressive diuresis during dialysis. A Nephrology consultation has been obtained with Dr. Sargent. 2. Diabetes type 2. The patient has been started on a NovoLog sliding scale. 3. Hypothyroidism. Continue Synthroid as above. 4. Hypertension. Continue amlodipine and Coreg as above. 5. Coronary artery disease, status post myocardial infarction. 6. Congestive heart failure. This may be secondary to volume overload. A Cardiology consultation is pending. Diuresis will be obtained via dialysis. 7. Chronic obstructive pulmonary disease. A Pulmonary consultation has been obtained with Dr. Bailee Shaw. 8. Cirrhosis of the liver. 9. Ascites. 10. Continue ceftriaxone 11. Hemodialysis 04/12/18 12. Discharge plan: [place] MD Apr 11, 2018 20:13
--- NOTE | 2018-04-11 22:03 | NUR ---
NURSE NOTES: Called [facility], spoke with Margareth the coordinator, she said no one's called earlier for patient's scheduled dialysis. Margareth will page Kwan and will wait for his callback.
[2018-04-12] VITALS: BP 158/69
--- NOTE | 2018-04-12 00:02 | NUR ---
NURSE NOTES: Called [facility] again and ff up regarding patient schedule dialysis, spoke with Margareth, she said she will page Kwan again.
--- NOTE | 2018-04-12 00:05 | NUR ---
NURSE NOTES: Kwan dialysis nurse called and said he will go supervisor coffee to do the dialysis, he said since potassium is not critical and O2 sat has been okay no need to do a stat dialysis since he was been notified late. Charge nurse made aware.
[2018-04-12 04:00] VITALS: BP 136/79
[2018-04-12] MEDS: NovoLOG Insulin Flexpen SUBQ SCH ×3 (05:22→16:30)
[2018-04-12 07:15] LABS: BASOPHILS % (AUTO) 1.8 % (0.0-2.0); EOSINOPHILS % (AUTO) 12.1 % (0.0-3.0); HEMATOCRIT 28.8 % (37.0-47.0); HEMOGLOBIN 9.3 G/DL (12.0-16.0); MEAN CORPUSCULAR VOLUME 103 FL (80-99); MONOCYTES % (AUTO) 10.9 % (1.0-10.0); NEUTROPHILS % (AUTO) 57.3 % (45.0-75.0); PLATELET COUNT 193 K/UL (150-450); RED BLOOD COUNT 2.81 M/UL (4.20-5.40); RED CELL DISTRIBUTION WIDTH 17.8 % (11.6-14.8); WHITE BLOOD COUNT 4.6 K/UL (4.8-10.8)
--- NOTE | 2018-04-12 07:17 | NUR ---
HAND-OFF: Report given to Cassie EVANGELISTA.
[2018-04-12 08:00] VITALS: BP 131/70
--- NOTE | 2018-04-12 08:00 | NUR ---
NURSE NOTES: Received patient in bed, resting and alert to name, place and purpose. Patient denies pain. No signs of respiratory distress. IV intact. Bed in lowest position, call light within reach. Will continue to monitor.
[2018-04-12 08:12] LABS: ALANINE AMINOTRANSFERASE 11 U/L (12-78); ALBUMIN 2.4 G/DL (3.4-5.0); ALBUMIN/GLOBULIN RATIO 0.6 (1.0-2.7); ALKALINE PHOSPHATASE 88 U/L (46-116); ANION GAP 12 mmol/L (5-15); ASPARTATE AMINO TRANSFERASE 19 U/L (15-37); BILIRUBIN,TOTAL 0.3 MG/DL (0.2-1.0); BLOOD UREA NITROGEN 76 mg/dL (7-18); CARBON DIOXIDE 26 MMOL/L (21-32); CHLORIDE 101 MMOL/L (98-107); CREATININE 7.7 MG/DL (0.55-1.30); POTASSIUM 4.7 MMOL/L (3.5-5.1); SODIUM 138 MMOL/L (136-145)
[2018-04-12] MEDS: Heparin 5000 units/ml inj SUBQ SCH (08:34)
[2018-04-12] MEDS: Renvela 2400 mg pkt ORAL SCH ×2 (08:34→14:13)
[2018-04-12 12:00] VITALS: BP 131/75
--- NOTE | 2018-04-12 13:38 | NUR ---
*-* DISCHARGED PLANNED *-* PATIENT IS DISCHARGED TO: [facility] ROOM# 20-B SKILLED T:[phone] FOR NURSE TO NURSE REPORT [facility] HAS BEEN ARRANGED FOR RUBBER CUTTING MACHINE TENDER AT [address] [id number] *-* SPOKE TO ROMINA BARROSO AND MADE AWARE OF PT BEING D/C BACK TO [facility] *-*
[2018-04-12] MEDS ORDERED: ACETAMINOPHEN325 M1 ORAL (14:04)
[2018-04-12] MEDS ORDERED: QUETIAPINE FUMA50 MG ORAL (14:05)
--- NOTE | 2018-04-12 15:26 | Pulmonology Progress Note ---
Assessment/Plan Problems: (1) UTI (urinary tract infection) (2) COPD (chronic obstructive pulmonary disease) (3) Cirrhosis of liver (4) Pulmonary edema (5) HTN (hypertension) (6) ESRD (end stage renal disease) (7) Diabetes mellitus, type II Assessment/Plan check cultures echoli in urine iv abx HD for ESRF check electrolytes sliding scale diabetic diet dc planning Subjective ROS Limited/Unobtainable: No Constitutional: Reports: no symptoms HEENT: Repors: no symptoms Respiratory: Reports: no symptoms Cardiovascular: Reports: no symptoms Gastrointestinal/Abdominal: Reports: no symptoms Allergies: Coded Allergies: No Known Allergies (Unverified , 09/20/15) Objective Last 24 Hour Vital Signs Date Time Temp Pulse Resp B/P (MAP) Pulse Ox O2 Delivery O2 Flow Rate FiO2 04/12/18 12:00 98.2 83 20 131/75 (93) 98 04/12/18 11:24 87 16 Room Air 21 04/12/18 09:00 Room Air 04/12/18 08:00 97.1 100 20 131/70 (90) 100 04/12/18 04:00 98.1 88 18 136/79 (98) 96 04/12/18 00:00 98.7 77 20 158/69 (98) 99 04/11/18 21:00 Room Air 04/11/18 20:00 98.4 91 18 157/75 (102) 98 04/11/18 16:00 98.3 84 20 145/83 (103) 93 Intake and Output 04/11/18 04/12/18 19:00 07:00 Intake Total 900 ml Output Total 802 ml Balance 98 ml Intake Oral 900 ml Output Urine Total 800 ml Stool Total 2 ml # Voids 4 # Bowel Movements 2 Objective General Appearance: WD/WN HEENT: normocephalic Respiratory/Chest: chest wall non-tender, lungs clear, normal breath sounds Breasts: no masses Cardiovascular: normal peripheral pulses, normal rate Abdomen: normal bowel sounds, soft, non tender Extremities: no cyanosis Skin: no rash Microbiology Date/Time Source Procedure Growth Status 04/10/18 19:45 Stool Clostridium difficile Toxin Assay - Final Complete Laboratory Tests 04/12/18 05:10: White Blood Count 4.6L, Red Blood Count 2.81L, Hemoglobin 9.3L, Hematocrit 28.8L , Mean Corpuscular Volume 103H, Mean Corpuscular Hemoglobin 33.0H, Mean Corpuscular Hemoglobin Concent 32.2, Red Cell Distribution Width 17.8H, Platelet Count 193, Mean Platelet Volume 5.9L, Neutrophils (%) (Auto) 57.3, Lymphocytes (%) (Auto) 18.0L, Monocytes (%) (Auto) 10.9H, Eosinophils (%) (Auto ) 12.1H, Basophils (%) (Auto) 1.8, Sodium Level 138, Potassium Level 4.7, Chloride Level 101, Carbon Dioxide Level 26, Anion Gap 12, Blood Urea Nitrogen 76H, Creatinine 7.7H, Estimat Glomerular Filtration Rate 6.4, Glucose Level 72L , Calcium Level 8.0L, Total Bilirubin 0.3, Aspartate Amino Transf (AST/SGOT) 19 , Alanine Aminotransferase (ALT/SGPT) 11L, Alkaline Phosphatase 88, Total Protein 6.2L, Albumin 2.4L, Globulin 3.8, Albumin/Globulin Ratio 0.6L Current Medications Medications (Trade) Dose Ordered Sig/Ranjan Route PRN Reason Start Time Stop Time Status Last Admin Dose Admin Acetaminophen (Tylenol) 650 mg Q4H PRN ORAL fever 04/08/18 18:45 05/08/18 18:44 Albuterol/ Ipratropium (Albuterol/ Ipratropium) 3 ml Q6H PRN HHN dyspnea 04/08/18 18:45 04/13/18 18:44 Ceftriaxone Sodium 1 gm/ Dextrose 55 ml @ 110 mls/hr Q24H IVPB 04/10/18 17:00 04/17/18 16:59 04/11/18 17:48 Dextrose (Dextrose 50%) STAT PRN IV Hypoglycemia 04/08/18 18:45 05/08/18 18:44 Dextrose (Dextrose 50%) STAT PRN IV Hypoglycemia 04/08/18 18:45 05/08/18 18:44 Heparin Sodium (Porcine) (Heparin 5000 units/ml) 5,000 units EVERY 12 HOURS SUBQ 04/08/18 21:00 05/08/18 20:59 04/11/18 08:50 Hydralazine HCl (Apresoline) 25 mg Q4H PRN ORAL sbp>160 04/08/18 18:45 05/08/18 18:44 Insulin Aspart (NovoLOG) BEFORE MEALS AND HS SUBQ 04/08/18 21:00 05/08/18 20:59 04/11/18 12:45 Levothyroxine Sodium (Synthroid) 88 mcg ACBREAKFAST ORAL 04/09/18 06:30 05/09/18 06:29 04/12/18 05:21 Morphine Sulfate (Morphine Sulfate) 1 mg Q4H PRN IVP For Pain 04/08/18 18:45 04/15/18 18:44 04/12/18 11:57 Ondansetron HCl (Zofran) 4 mg Q6H PRN IVP Nausea & Vomiting 04/08/18 18:45 05/08/18 18:44 Polyethylene Glycol (Miralax) 17 gm HSPRN PRN ORAL Constipation 04/08/18 18:45 05/08/18 18:44 Quetiapine Fumarate (SEROquel) 25 mg Q6H PRN ORAL For Anxiety 04/10/18 22:30 05/10/18 22:29 Sevelamer Carbonate (Renvela) 2,400 mg THREE TIMES A DAY ORAL 04/09/18 09:00 05/09/18 08:59 04/12/18 14:13 Zolpidem Tartrate (Ambien) 5 mg HSPRN PRN ORAL Insomnia 04/08/18 18:45 04/15/18 18:44 04/11/18 22:27 Bailee Shaw MD Apr 12, 2018 15:26
--- NOTE | 2018-04-12 15:35 | NUR ---
NURSE NOTES: Report given to JEAN CARLOS Navas from [facility].
--- NOTE | 2018-04-12 16:10 | Nephrology Progress Note ---
Assessment/Plan Problem List: (1) ESRD (end stage renal disease) (2) Cirrhosis of liver (3) Hypotension (4) Acute metabolic encephalopathy Assessment (1) ESRD (end stage renal disease) (2) Cirrhosis of liver, ascitis (3) Anemia (4) Diabetes (5) HTN (hypertension), presents with low BP (6) HypoThyroid (7) h/o Atrial Fib Plan may need to start BP meds again dialysis done today 04/12 2D echo last admission results noted continue per psych minimize mind altering meds DC planning? Subjective ROS Limited/Unobtainable: No Objective Objective Last 24 Hour Vital Signs Date Time Temp Pulse Resp B/P (MAP) Pulse Ox O2 Delivery O2 Flow Rate FiO2 04/12/18 12:00 98.2 83 20 131/75 (93) 98 04/12/18 11:24 87 16 Room Air 21 04/12/18 09:00 Room Air 04/12/18 08:00 97.1 100 20 131/70 (90) 100 04/12/18 04:00 98.1 88 18 136/79 (98) 96 04/12/18 00:00 98.7 77 20 158/69 (98) 99 04/11/18 21:00 Room Air 04/11/18 20:00 98.4 91 18 157/75 (102) 98 Intake and Output 04/11/18 04/12/18 19:00 07:00 Intake Total 900 ml Output Total 802 ml Balance 98 ml Intake Oral 900 ml Output Urine Total 800 ml Stool Total 2 ml # Voids 4 # Bowel Movements 2 Laboratory Tests 04/12/18 05:10: White Blood Count 4.6L, Red Blood Count 2.81L, Hemoglobin 9.3L, Hematocrit 28.8L , Mean Corpuscular Volume 103H, Mean Corpuscular Hemoglobin 33.0H, Mean Corpuscular Hemoglobin Concent 32.2, Red Cell Distribution Width 17.8H, Platelet Count 193, Mean Platelet Volume 5.9L, Neutrophils (%) (Auto) 57.3, Lymphocytes (%) (Auto) 18.0L, Monocytes (%) (Auto) 10.9H, Eosinophils (%) (Auto ) 12.1H, Basophils (%) (Auto) 1.8, Sodium Level 138, Potassium Level 4.7, Chloride Level 101, Carbon Dioxide Level 26, Anion Gap 12, Blood Urea Nitrogen 76H, Creatinine 7.7H, Estimat Glomerular Filtration Rate 6.4, Glucose Level 72L , Calcium Level 8.0L, Total Bilirubin 0.3, Aspartate Amino Transf (AST/SGOT) 19 , Alanine Aminotransferase (ALT/SGPT) 11L, Alkaline Phosphatase 88, Total Protein 6.2L, Albumin 2.4L, Globulin 3.8, Albumin/Globulin Ratio 0.6L Height (Feet): 5 Height (Inches): 10.00 Weight (Pounds): 180 General Appearance: no apparent distress Objective no change Archie Sargent MD Apr 12, 2018 16:10
[2018-04-12 17:29] VITALS: BP 153/74
[2018-04-12] MEDS ORDERED: LORazepam 1mg tab ORAL SCH (17:30)
[2018-04-12] MEDS ORDERED: HydrALAZINE 25mg tab ORAL SCH (17:30)
[2018-04-12] MEDS ORDERED: NS 500ML ONE (17:46)
--- NOTE | 2018-04-12 17:52 | NUR ---
NURSE NOTES: Patient discharged to [facility]. IV and ID band removed. Patient given 1 time dose hydralazine and ativan for increased BP; patient stated she felt anxious because EMT took long. Discharge packet given to EMT. Belongings verified with patient. Patient given few donated shirts as requested. Patient discharged in stable condition.
--- NOTE | 2018-04-12 18:26 | Internal Med Progress Note ---
Subjective Physician Name Jackson Albright Attending Physician Jackson Albright MD Allergies: Coded Allergies: No Known Allergies (Unverified , 09/20/15) Subjective Awake, alert, responsive, denies any chest pain, denies any shortness of breath , no acute distress. Objective Last Vital Signs Date Time Temp Pulse Resp B/P (MAP) Pulse Ox O2 Delivery O2 Flow Rate FiO2 04/12/18 17:29 153/74 04/12/18 12:00 98.2 83 20 98 04/12/18 11:24 Room Air 21 04/09/18 17:20 3.0 Laboratory Tests Test 04/12/18 05:10 White Blood Count 4.6 K/UL (4.8-10.8) L Red Blood Count 2.81 M/UL (4.20-5.40) L Hemoglobin 9.3 G/DL (12.0-16.0) L Hematocrit 28.8 % (37.0-47.0) L Mean Corpuscular Volume 103 FL (80-99) H Mean Corpuscular Hemoglobin 33.0 PG (27.0-31.0) H Mean Corpuscular Hemoglobin Concent 32.2 G/DL (32.0-36.0) Red Cell Distribution Width 17.8 % (11.6-14.8) H Platelet Count 193 K/UL (150-450) Mean Platelet Volume 5.9 FL (6.5-10.1) L Neutrophils (%) (Auto) 57.3 % (45.0-75.0) Lymphocytes (%) (Auto) 18.0 % (20.0-45.0) L Monocytes (%) (Auto) 10.9 % (1.0-10.0) H Eosinophils (%) (Auto) 12.1 % (0.0-3.0) H Basophils (%) (Auto) 1.8 % (0.0-2.0) Sodium Level 138 MMOL/L (136-145) Potassium Level 4.7 MMOL/L (3.5-5.1) Chloride Level 101 MMOL/L (98-107) Carbon Dioxide Level 26 MMOL/L (21-32) Anion Gap 12 mmol/L (5-15) Blood Urea Nitrogen 76 mg/dL (7-18) H Creatinine 7.7 MG/DL (0.55-1.30) H Estimat Glomerular Filtration Rate 6.4 mL/min (>60) Glucose Level 72 MG/DL (74-106) L Calcium Level 8.0 MG/DL (8.5-10.1) L Total Bilirubin 0.3 MG/DL (0.2-1.0) Aspartate Amino Transf (AST/SGOT) 19 U/L (15-37) Alanine Aminotransferase (ALT/SGPT) 11 U/L (12-78) L Alkaline Phosphatase 88 U/L (46-116) Total Protein 6.2 G/DL (6.4-8.2) L Albumin 2.4 G/DL (3.4-5.0) L Globulin 3.8 g/dL Albumin/Globulin Ratio 0.6 (1.0-2.7) L Microbiology Date/Time Source Procedure Growth Status 04/10/18 19:45 Stool Clostridium difficile Toxin Assay - Final Complete Intake and Output 04/11/18 04/12/18 19:00 07:00 Intake Total 900 ml Output Total 802 ml Balance 98 ml Intake Oral 900 ml Output Urine Total 800 ml Stool Total 2 ml # Voids 4 # Bowel Movements 2 Objective General: No acute distress, awake and alert HEENT: NCAT, sclera anicteric, PERRL, EOMI. Neck: Supple, no significant jugular venous distention, Lungs: Good inspiratory effort, no accessory muscle use, clear to auscultation bilaterally, no Wheeze or Rales. Heart: Regular rate and rhythm, normal S1/S2, no murmurs, Abdomen: soft, nontender, nondistended. Normoactive bowel sounds. Obesity. Extremities: No Cyanosis , clubbing or edema. Right upper extremity AV fistula with thrill and functional. Neuro: A&O x 3, Able to move all extremities Skin: warm, no rashes. Psych: Normal mood and affect Assessment/Plan Assessment/Plan (1) ESRD (end stage renal disease) (2) Cirrhosis of liver, ascitis (3) Anemia (4) Diabetes (5) HTN (hypertension), presents with low BP (6) Hypothyroid (7) h/o Atrial Fib Plan dialysis done today 04/12 2D echo last admission results Monitor blood pressure at the nursing facility, OK planning to SNF today. Jackson Albright MD Apr 12, 2018 18:26
--- NOTE | 2018-04-16 10:30 | Discharge Summary ---
Discharge Summary Discharge Summary _ DATE OF ADMISSION: 04/08/2018 DATE OF DISCHARGE: 04/12/2018 DISCHARGED BY: Dr. Albright REASON FOR ADMISSION: 63 years old female with past medical history of COPD, diabetes mellitus, hypertension, myocardial infarction, end-stage renal disease on hemodialysis, depression, seizure disorder, presented from the residential facility for increased lethargy for 1 day. No fever , no chills were documented. No chest pain or shortness of breath. Upon evaluation in the emergency department patient required supplemental oxygen 3 L with pulse oximetry reaching 93%. Patient was hypotensive. Chest x-ray revealed patchy bilateral airspace and interstitial opacity without significant changes from the last examination, findings were probably on the basis of pulmonary edema. Laboratory workup demonstrated no leukocytosis , hemoglobin 10.5, hematocrit 24.2. Potassium 5.5. BUN 65, creatinine 6.4, consistent with known history of end-stage renal disease. Lactic acid 0.3. Urinalysis revealed evidence of UTI Troponin - 0.035. Pro BNP 02/25/1968. . EKG revealed normal sinus rhythm , no acute ischemic changes. Albumin 2.5. Patient admitted for further management CONSULTANTS: beater operator Dr. Dillard pulmonary Dr. Shaw meat dresser Dr. Sargent psychiatrist [facility] COURSE: Patient admitted. Cardiology, pulmonology and nephrology closely followed. Patient received albumin bolus initially for hypotension and blood pressure responded to albumin bolus. Hyperkalemia was treated with Kayexalate. Hemodialysis provided as per meat dresser recommendations with close monitoring of volumes, electrolytes and renal parameters. Electrolytes corrected as needed. Patient initially started on empiric antibiotic for UTI. Urine culture showed E. coli with colony count 60-70 K and Enterococci faecalis with colony count 30-40 K. Blood cultures were negative. Stool for C. difficile was negative. Antibiotics subsequently stopped. Nursing Assoc followed. Echocardiogram revealed preserved ejection fraction 55-60% with no evidence of wall motion abnormality. Mild left ventricular hypertrophy. Mild to moderate mitral regurgitation and moderate tricuspid regurgitation noted. Moderate aortic insufficiency noted. Right ventricular systolic pressure of 64, consistent with severe pulmonary hypertension. After blood pressure stabilized, it was closely monitored and managed to avoid further hypotension. Supplemental oxygen provided as needed to keep pulse oximetry above 92%. Pulmonary toilet provided as needed. Prior to discharge pulse oximetry was stable on room air. DVT prophylaxis provided. Blood sugar was closely monitor.. Hemoglobin A1c 5.5. TSH within normal range. Current dose of levothyroxine was continued. Hemoglobin and hematocrit were closely monitored with goal to keep hemoglobin above 7. Hemoglobin remains at baseline, prior to discharge hemoglobin 9.3 hematocrit 28.8. Pain management was addressed as needed. Bowel regimen instituted. Supportive care provided. All mind altering medications were minimized. Psychiatrist followed and diagnosed patient with acute metabolic encephalopathy and major depressive disorder. Trazodone was discontinued. Patient started on Seroquel only on as-needed basis. Patient clinically stabilized and was ready for transfer back to residential facility for continuation of care. FINAL DIAGNOSES: Acute metabolic encephalopathy Probably UTI, s/p treatment End-stage renal disease, on hemodialysis Anemia of chronic kidney disease COPD Pulmonary edema History of diastolic dysfunction Hyperkalemia Pulmonary hypertension Moderate mitral and tricuspid regurgitation Liver cirrhosis History of atrial fibrillation Hypothyroidism Diabetes mellitus type 2 History of hypertension , initially presented with hypotension DISCHARGE MEDICATIONS: See Medication Reconciliation list. DISCHARGE INSTRUCTIONS: Patient was discharged to the residential facility. Follow up with medical doctor at the facility. I have been assigned to dictate discharge summary for this account. I was not involved in the patient's management. Patti Johnston NP Apr 16, 2018 10:30
== END 2018-04-12 17:47 | DRG 689 ==
LOC: EDBD 10:09 → EMR 12:40 → 4E 12:49 → EDBEDREQ 16:31 → 4E 04-09 16:34
PROC: 5A1D70Z Performance of Urinary Filtration, Intermittent, Less than 6 Hours Per Day (ICD-10-PCS; principal; 2018-04-09)
DX: N39.0 Urinary tract infection, site not specified (principal); N18.6 End stage renal disease; G93.41 Metabolic encephalopathy; I13.2 Hypertensive heart and chronic kidney disease with heart failure and with stage 5 chronic kidney disease, or end stage renal disease; I50.30 Unspecified diastolic (congestive) heart failure; R18.8 Other ascites; F33.9 Major depressive disorder, recurrent, unspecified; Z99.2 Dependence on renal dialysis; I34.0 Nonrheumatic mitral (valve) insufficiency; I36.1 Nonrheumatic tricuspid (valve) insufficiency; I27.20 Pulmonary hypertension, unspecified; K74.60 Unspecified cirrhosis of liver; E11.22 Type 2 diabetes mellitus with diabetic chronic kidney disease; G62.9 Polyneuropathy, unspecified; J44.9 Chronic obstructive pulmonary disease, unspecified; I25.10 Atherosclerotic heart disease of native coronary artery without angina pectoris; I25.2 Old myocardial infarction; Z79.4 Long term (current) use of insulin; B96.20 Unspecified Escherichia coli [E. coli] as the cause of diseases classified elsewhere; B95.4 Other streptococcus as the cause of diseases classified elsewhere
CPT/HCPCS: 36415; 71045; 80048; 80053; 80061; 80076; 81003; 82550; 82553; 82962; 83036; 83605; 83880; 84100; 84443; 84484; 85025; 87040; 87081; 87086; 87181; 87324; 93005; 93306; 94664; 96365; 99285; J1815